=== PATIENT | male | born 1965 | race Caucasian/White ===

== ENCOUNTER 2016-10-14 | Emergency (ER) | END 2016-10-15 01:07 | disposition left against medical advice (07) ==

== ENCOUNTER 2016-10-17 | Emergency (ER) | payer OTHER, MEDICAID | END 2016-10-17 16:47 | disposition home or self-care (01) | CPT/HCPCS: 1040M; 99282 ==

== ENCOUNTER 2016-10-20 17:46 | Inpatient (IN) | payer MEDICAID ==
[2016-10-20] MEDS ORDERED: HYDROmorphone 1 MG/ML SYRINGE IVP STA (18:15)
[2016-10-20] MEDS ORDERED: SODIUM CHLORIDE 0.9% 1,000 ML IV ONE (18:15)
[2016-10-20] MEDS ORDERED: HYDROmorphone 1 MG/ML SYRINGE ONE (18:32)
[2016-10-20] MEDS ORDERED: PIPERACILLIN/TAZOBACTAM 4.5 GM in SODIUM CHLORIDE 0.9% MINIBAG 100 ML IV STA (20:04)
[2016-10-20] MEDS ORDERED: SODIUM CHLORIDE 0.9% MINIBAG 100 ML IV ONE (20:05)
[2016-10-20] MEDS ORDERED: HYDROcod/ACETAM 5/325 MG TABLET PO PRN (21:28)
[2016-10-20] MEDS ORDERED: SODIUM CHLORIDE 0.9% 1,000 ML IV SCH (21:28)
[2016-10-20] MEDS ORDERED: ONDANSETRON 4 MG/2 ML VIAL IVP PRN (21:28)
[2016-10-20] MEDS ORDERED: ACETAMINOPHEN 325 MG TABLET PO PRN (21:28)
[2016-10-20] MEDS: HYDROmorphone 1 MG/ML SYRINGE IVP PRN (22:03)
[2016-10-20] MEDS: SODIUM CHLORIDE FLUSH 0.9% 10 ML SYRINGE IVP SCH (22:03)
[2016-10-20] MEDS: GABAPENTIN 300 MG CAPSULE PO SCH (22:12)
[2016-10-20] MEDS: NICOTINE 21 MG PATCH TOP SCH (22:13)
[2016-10-20] MEDS: INSULIN GLARGINE 300 UNIT/3 ML PEN SUBQ SCH (22:18)
[2016-10-20] MEDS: INSULIN ASPART 300 UNIT/3 ML PEN SUBQ SCH (22:19)
[2016-10-20] MEDS: PIPERACILLIN/TAZOBACTAM 4.5 GM in SODIUM CHLORIDE 0.9% MINIBAG 100 ML IV SCH (23:46)
[2016-10-20] MEDS: TEMAZEPAM 15 MG CAPSULE PO PRN (23:46)
[2016-10-21] MEDS: VANCOMYCIN INJ 1.5 GM in SODIUM CHLORIDE 0.9% 500 ML IV SCH ×3 (01:17→16:27)
[2016-10-21] MEDS: SODIUM CHLORIDE FLUSH 0.9% 10 ML SYRINGE IVP SCH ×3 (01:21→22:40)
[2016-10-21] MEDS ORDERED: VANCOMYCIN PER PHARMACY 1 GM in SODIUM CHLORIDE 0.9% 250 ML IV SCH ×4 (08:00)
[2016-10-21] MEDS: INSULIN ASPART 300 UNIT/3 ML PEN SUBQ SCH ×8 (08:21→21:22)
[2016-10-21] MEDS: PIPERACILLIN/TAZOBACTAM 4.5 GM in SODIUM CHLORIDE 0.9% MINIBAG 100 ML IV SCH ×2 (08:21→18:50)
[2016-10-21] MEDS: SACCHAROMYCES BOULARDII 250 MG CAPSULE PO SCH ×2 (08:22→16:58)
[2016-10-21] MEDS: ENOXAPARIN 40 MG/0.4 ML SYRINGE SUBQ SCH (08:22)
[2016-10-21] MEDS: GABAPENTIN 300 MG CAPSULE PO SCH ×2 (08:23→21:27)
[2016-10-21] MEDS: NICOTINE 21 MG PATCH TOP SCH ×2 (08:23→16:57)
[2016-10-21] MEDS: LISINOPRIL 5 MG TABLET PO SCH (08:23)
[2016-10-21] MEDS: HYDROmorphone 1 MG/ML SYRINGE IVP PRN ×3 (08:31→16:27)
[2016-10-21] MEDS: POLYETHYLENE GLYCOL 3350 17 GM PACKET PO SCH (08:53)
[2016-10-21] MEDS: SILVER SULFADIAZINE CREAM 25 GM TUBE TOP SCH ×2 (09:29→21:39)
[2016-10-21] MEDS ORDERED: HYDROcod/ACETAM 5/325 MG TABLET PO PRN (10:25)
[2016-10-21] MEDS: NEOMYCIN/BACITRA/POLYMYX OINT PACKET TOP SCH ×2 (10:30→21:32)
[2016-10-21] MEDS ORDERED: GADOBUTROL 10 MMOL/10 ML VIAL IVP ONE (15:56)
[2016-10-21] MEDS: INSULIN GLARGINE 300 UNIT/3 ML PEN SUBQ SCH (21:24)
[2016-10-21] MEDS: oxyCOD/ACETAMIN 5 MG/325 MG TABLET PO PRN (21:37)
[2016-10-21] MEDS: TEMAZEPAM 15 MG CAPSULE PO PRN (22:37)
[2016-10-22] MEDS: PIPERACILLIN/TAZOBACTAM 4.5 GM in SODIUM CHLORIDE 0.9% MINIBAG 100 ML IV SCH ×5 (00:24→23:56)
[2016-10-22] MEDS: VANCOMYCIN INJ 1.5 GM in SODIUM CHLORIDE 0.9% 500 ML IV SCH ×2 (04:00→16:22)
[2016-10-22] MEDS: SODIUM CHLORIDE FLUSH 0.9% 10 ML SYRINGE IVP SCH ×3 (06:25→22:52)
[2016-10-22] MEDS: oxyCOD/ACETAMIN 5 MG/325 MG TABLET PO PRN ×4 (06:36→21:51)
[2016-10-22] MEDS: SACCHAROMYCES BOULARDII 250 MG CAPSULE PO SCH ×2 (07:57→17:07)
[2016-10-22] MEDS: ENOXAPARIN 40 MG/0.4 ML SYRINGE SUBQ SCH (07:58)
[2016-10-22] MEDS: POLYETHYLENE GLYCOL 3350 17 GM PACKET PO SCH (07:58)
[2016-10-22] MEDS: SILVER SULFADIAZINE CREAM 25 GM TUBE TOP SCH ×2 (07:59→22:52)
[2016-10-22] MEDS: INSULIN ASPART 300 UNIT/3 ML PEN SUBQ SCH ×7 (08:00→21:55)
[2016-10-22] MEDS: LISINOPRIL 5 MG TABLET PO SCH (08:06)
[2016-10-22] MEDS: GABAPENTIN 300 MG CAPSULE PO SCH ×2 (08:09→21:51)
[2016-10-22] MEDS: NEOMYCIN/BACITRA/POLYMYX OINT PACKET TOP SCH ×2 (08:10→21:57)
[2016-10-22] MEDS: HYDROmorphone 1 MG/ML SYRINGE IVP PRN (16:14)
[2016-10-22] MEDS: INSULIN GLARGINE 300 UNIT/3 ML PEN SUBQ SCH (21:56)
[2016-10-22] MEDS: NICOTINE 21 MG PATCH TOP SCH (22:59)
[2016-10-23] MEDS: HYDROmorphone 1 MG/ML SYRINGE IVP PRN ×5 (00:04→15:56)
[2016-10-23] MEDS: TEMAZEPAM 15 MG CAPSULE PO PRN (00:14)
[2016-10-23] MEDS: SODIUM CHLORIDE FLUSH 0.9% 10 ML SYRINGE IVP PRN ×2 (01:04→03:21)
[2016-10-23] MEDS: VANCOMYCIN INJ 1.5 GM in SODIUM CHLORIDE 0.9% 500 ML IV SCH ×3 (01:04→17:19)
[2016-10-23] MEDS ORDERED: DEXTROSE 5% 1,000 ML IV PRN ×4 (04:43→21:06)
[2016-10-23] MEDS ORDERED: DEXTROSE 50% ABBOJECT 25 GM/50 ML SYRINGE IVP PRN ×4 (04:43→21:06)
[2016-10-23] MEDS ORDERED: GLUCAGON 1 MG/ML VIAL SUBQ PRN ×4 (04:43→21:06)
[2016-10-23] MEDS ORDERED: DEXTROSE GEL 37.5 GM TUBE PO PRN ×4 (04:43→21:06)
[2016-10-23] MEDS: INSULIN REGULAR HUMAN 100 UNIT/1 ML 10 ML MDV SUBQ SCH ×2 (06:50→11:21)
[2016-10-23] MEDS: PIPERACILLIN/TAZOBACTAM 4.5 GM in SODIUM CHLORIDE 0.9% MINIBAG 100 ML IV SCH ×3 (06:51→20:38)
[2016-10-23] MEDS: SODIUM CHLORIDE FLUSH 0.9% 10 ML SYRINGE IVP SCH ×3 (06:51→15:57)
[2016-10-23] MEDS: INSULIN ASPART 300 UNIT/3 ML PEN SUBQ SCH ×4 (08:43→21:58)
[2016-10-23] MEDS: LISINOPRIL 5 MG TABLET PO SCH (09:10)
[2016-10-23] MEDS: SACCHAROMYCES BOULARDII 250 MG CAPSULE PO SCH ×2 (09:10→17:19)
[2016-10-23] MEDS: GABAPENTIN 300 MG CAPSULE PO SCH ×2 (09:11→21:59)
[2016-10-23] MEDS: POLYETHYLENE GLYCOL 3350 17 GM PACKET PO SCH (09:19)
[2016-10-23] MEDS: ENOXAPARIN 40 MG/0.4 ML SYRINGE SUBQ SCH (09:20)
[2016-10-23] MEDS: NEOMYCIN/BACITRA/POLYMYX OINT PACKET TOP SCH (09:20)
[2016-10-23] MEDS: SILVER SULFADIAZINE CREAM 25 GM TUBE TOP SCH ×2 (09:20→22:00)
[2016-10-23] MEDS: NICOTINE 21 MG PATCH TOP SCH (10:26)
[2016-10-23] MEDS ORDERED: BUPIVACAINE 0.5% PF 30 ML VIAL INFIL ONE ×2 (12:52)
[2016-10-23] MEDS ORDERED: LACTATED RINGERS 1,000 ML IV ONE (12:56)
[2016-10-23] MEDS ORDERED: ONDANSETRON 4 MG/2 ML VIAL IVP ONE (13:00)
[2016-10-23] MEDS ORDERED: ePHEDrine 50 MG/ML AMP IVP ONE (13:00)
[2016-10-23] MEDS ORDERED: MIDAZOLAM 2 MG/2 ML VIAL IVP ONE (13:00)
[2016-10-23] MEDS ORDERED: fentaNYL 100 MCG/2 ML VIAL IVP ONE (13:00)
[2016-10-23] MEDS ORDERED: ONDANSETRON 4 MG/2 ML VIAL IVP PRN (13:48)
[2016-10-23] MEDS ORDERED: oxyCOD/ACETAMIN 5 MG/325 MG TABLET PO PRN (13:48)
[2016-10-23] MEDS ORDERED: ACETAMINOPHEN 325 MG TABLET PO PRN (13:48)
[2016-10-23] MEDS ORDERED: INSULIN REGULAR HUMAN 100 UNIT/1 ML 10 ML MDV SUBQ SCH (18:00)
[2016-10-23] MEDS: INSULIN GLARGINE 300 UNIT/3 ML PEN SUBQ SCH (21:59)
[2016-10-24] MEDS: VANCOMYCIN INJ 1.5 GM in SODIUM CHLORIDE 0.9% 500 ML IV SCH ×3 (00:10→17:21)
[2016-10-24] MEDS: HYDROmorphone 1 MG/ML SYRINGE IVP PRN ×4 (00:10→10:31)
[2016-10-24] MEDS: TEMAZEPAM 15 MG CAPSULE PO PRN ×2 (00:11→21:38)
[2016-10-24] MEDS: SODIUM CHLORIDE FLUSH 0.9% 10 ML SYRINGE IVP PRN (00:11)
[2016-10-24] MEDS: PIPERACILLIN/TAZOBACTAM 4.5 GM in SODIUM CHLORIDE 0.9% MINIBAG 100 ML IV SCH ×4 (03:17→21:38)
[2016-10-24] MEDS: SODIUM CHLORIDE FLUSH 0.9% 10 ML SYRINGE IVP SCH ×3 (06:41→21:42)
[2016-10-24] MEDS: INSULIN ASPART 300 UNIT/3 ML PEN SUBQ SCH ×7 (07:50→21:43)
[2016-10-24] MEDS ORDERED: INSULIN ASPART 300 UNIT/3 ML PEN SUBQ SCH (08:00)
[2016-10-24] MEDS: NICOTINE 21 MG PATCH TOP SCH (08:42)
[2016-10-24] MEDS: GABAPENTIN 300 MG CAPSULE PO SCH ×2 (08:42→21:38)
[2016-10-24] MEDS: SACCHAROMYCES BOULARDII 250 MG CAPSULE PO SCH ×2 (08:43→17:08)
[2016-10-24] MEDS: LISINOPRIL 5 MG TABLET PO SCH (08:43)
[2016-10-24] MEDS: ENOXAPARIN 40 MG/0.4 ML SYRINGE SUBQ SCH (10:34)
[2016-10-24] MEDS: SENNA 8.6 MG TABLET PO SCH (10:35)
[2016-10-24] MEDS: DOCUSATE SODIUM 250 MG CAPSULE PO SCH (10:35)
[2016-10-24] MEDS: SILVER SULFADIAZINE CREAM 25 GM TUBE TOP SCH ×2 (10:37→21:39)
[2016-10-24] MEDS: HYDROmorphone 2 MG TABLET PO PRN ×3 (13:36→21:38)
[2016-10-24] MEDS: INSULIN GLARGINE 300 UNIT/3 ML PEN SUBQ SCH (21:44)
[2016-10-25] MEDS: VANCOMYCIN INJ 1.5 GM in SODIUM CHLORIDE 0.9% 500 ML IV SCH ×3 (00:04→16:58)
[2016-10-25] MEDS: SODIUM CHLORIDE FLUSH 0.9% 10 ML SYRINGE IVP PRN ×2 (00:04→02:18)
[2016-10-25] MEDS: PIPERACILLIN/TAZOBACTAM 4.5 GM in SODIUM CHLORIDE 0.9% MINIBAG 100 ML IV SCH ×4 (02:15→21:34)
[2016-10-25] MEDS: HYDROmorphone 2 MG TABLET PO PRN ×4 (02:16→21:42)
[2016-10-25] MEDS: SACCHAROMYCES BOULARDII 250 MG CAPSULE PO SCH ×2 (08:55→16:58)
[2016-10-25] MEDS: GABAPENTIN 300 MG CAPSULE PO SCH ×2 (08:55→20:59)
[2016-10-25] MEDS: INSULIN ASPART 300 UNIT/3 ML PEN SUBQ SCH ×7 (08:55→21:00)
[2016-10-25] MEDS: DOCUSATE SODIUM 250 MG CAPSULE PO SCH (08:56)
[2016-10-25] MEDS: ENOXAPARIN 40 MG/0.4 ML SYRINGE SUBQ SCH (08:56)
[2016-10-25] MEDS: SENNA 8.6 MG TABLET PO SCH (08:56)
[2016-10-25] MEDS: LISINOPRIL 5 MG TABLET PO SCH (08:58)
[2016-10-25] MEDS: NICOTINE 21 MG PATCH TOP SCH (09:01)
[2016-10-25] MEDS: SILVER SULFADIAZINE CREAM 25 GM TUBE TOP SCH ×2 (09:29→21:39)
[2016-10-25] MEDS: SODIUM CHLORIDE FLUSH 0.9% 10 ML SYRINGE IVP SCH ×3 (11:43→21:35)
[2016-10-25] MEDS: INSULIN GLARGINE 300 UNIT/3 ML PEN SUBQ SCH (21:01)
[2016-10-26] MEDS: TEMAZEPAM 15 MG CAPSULE PO PRN ×2 (00:22→22:12)
[2016-10-26] MEDS: VANCOMYCIN INJ 1.5 GM in SODIUM CHLORIDE 0.9% 500 ML IV SCH ×3 (00:22→17:04)
[2016-10-26] MEDS: PIPERACILLIN/TAZOBACTAM 4.5 GM in SODIUM CHLORIDE 0.9% MINIBAG 100 ML IV SCH ×4 (02:14→22:13)
[2016-10-26] MEDS: SODIUM CHLORIDE FLUSH 0.9% 10 ML SYRINGE IVP SCH ×3 (02:14→22:12)
[2016-10-26] MEDS: HYDROmorphone 2 MG TABLET PO PRN ×2 (06:03→14:13)
[2016-10-26] MEDS: ENOXAPARIN 40 MG/0.4 ML SYRINGE SUBQ SCH (08:05)
[2016-10-26] MEDS: SACCHAROMYCES BOULARDII 250 MG CAPSULE PO SCH ×2 (08:05→17:04)
[2016-10-26] MEDS: DOCUSATE SODIUM 250 MG CAPSULE PO SCH ×2 (08:05→08:11)
[2016-10-26] MEDS: NICOTINE 21 MG PATCH TOP SCH ×3 (08:06→11:00)
[2016-10-26] MEDS: GABAPENTIN 300 MG CAPSULE PO SCH ×2 (08:06→22:01)
[2016-10-26] MEDS: LISINOPRIL 5 MG TABLET PO SCH (08:06)
[2016-10-26] MEDS: SENNA 8.6 MG TABLET PO SCH ×2 (08:07→08:12)
[2016-10-26] MEDS: POLYETHYLENE GLYCOL 3350 17 GM PACKET PO SCH (08:10)
[2016-10-26] MEDS: INSULIN ASPART 300 UNIT/3 ML PEN SUBQ SCH ×7 (08:20→22:07)
[2016-10-26] MEDS: SILVER SULFADIAZINE CREAM 25 GM TUBE TOP SCH ×2 (10:38→22:12)
[2016-10-26] MEDS: INSULIN GLARGINE 300 UNIT/3 ML PEN SUBQ SCH (22:06)
[2016-10-27] MEDS: VANCOMYCIN INJ 1.5 GM in SODIUM CHLORIDE 0.9% 500 ML IV SCH ×3 (01:09→17:06)
[2016-10-27] MEDS: PIPERACILLIN/TAZOBACTAM 4.5 GM in SODIUM CHLORIDE 0.9% MINIBAG 100 ML IV SCH ×4 (03:06→21:43)
[2016-10-27] MEDS: SODIUM CHLORIDE FLUSH 0.9% 10 ML SYRINGE IVP SCH ×3 (06:02→21:53)
[2016-10-27] MEDS: SACCHAROMYCES BOULARDII 250 MG CAPSULE PO SCH ×2 (08:07→17:06)
[2016-10-27] MEDS: GABAPENTIN 300 MG CAPSULE PO SCH ×2 (08:07→21:43)
[2016-10-27] MEDS: NICOTINE 21 MG PATCH TOP SCH (08:08)
[2016-10-27] MEDS: ENOXAPARIN 40 MG/0.4 ML SYRINGE SUBQ SCH (08:08)
[2016-10-27] MEDS: LISINOPRIL 5 MG TABLET PO SCH (08:08)
[2016-10-27] MEDS: INSULIN ASPART 300 UNIT/3 ML PEN SUBQ SCH ×7 (08:09→21:41)
[2016-10-27] MEDS: SILVER SULFADIAZINE CREAM 25 GM TUBE TOP SCH ×2 (08:22→21:50)
[2016-10-27] MEDS: SENNA 8.6 MG TABLET PO SCH (08:23)
[2016-10-27] MEDS: DOCUSATE SODIUM 250 MG CAPSULE PO SCH (08:23)
[2016-10-27] MEDS: POLYETHYLENE GLYCOL 3350 17 GM PACKET PO SCH (08:23)
[2016-10-27] MEDS: HYDROmorphone 2 MG TABLET PO PRN ×2 (13:22→21:42)
[2016-10-27] MEDS: SODIUM CHLORIDE FLUSH 0.9% 10 ML SYRINGE IVP PRN (17:11)
[2016-10-27] MEDS: INSULIN GLARGINE 300 UNIT/3 ML PEN SUBQ SCH (21:40)
[2016-10-27] MEDS: TEMAZEPAM 15 MG CAPSULE PO PRN (21:42)
[2016-10-28] MEDS: SODIUM CHLORIDE FLUSH 0.9% 10 ML SYRINGE IVP PRN (00:46)
[2016-10-28] MEDS: VANCOMYCIN INJ 1.5 GM in SODIUM CHLORIDE 0.9% 500 ML IV SCH ×2 (00:46→09:34)
[2016-10-28] MEDS: PIPERACILLIN/TAZOBACTAM 4.5 GM in SODIUM CHLORIDE 0.9% MINIBAG 100 ML IV SCH ×2 (03:04→08:16)
[2016-10-28] MEDS: HYDROmorphone 2 MG TABLET PO PRN (06:32)
[2016-10-28] MEDS: SODIUM CHLORIDE FLUSH 0.9% 10 ML SYRINGE IVP SCH (06:33)
[2016-10-28] MEDS: INSULIN ASPART 300 UNIT/3 ML PEN SUBQ SCH ×4 (08:11→12:01)
[2016-10-28] MEDS: DOCUSATE SODIUM 250 MG CAPSULE PO SCH (08:12)
[2016-10-28] MEDS: SACCHAROMYCES BOULARDII 250 MG CAPSULE PO SCH (08:12)
[2016-10-28] MEDS: ENOXAPARIN 40 MG/0.4 ML SYRINGE SUBQ SCH (08:13)
[2016-10-28] MEDS: NICOTINE 21 MG PATCH TOP SCH (08:15)
[2016-10-28] MEDS: LISINOPRIL 5 MG TABLET PO SCH (08:18)
[2016-10-28] MEDS: GABAPENTIN 300 MG CAPSULE PO SCH (08:27)
[2016-10-28] MEDS: SENNA 8.6 MG TABLET PO SCH (08:28)
[2016-10-28] MEDS: POLYETHYLENE GLYCOL 3350 17 GM PACKET PO SCH (08:28)
[2016-10-28] MEDS: SILVER SULFADIAZINE CREAM 25 GM TUBE TOP SCH (09:39)
[2016-10-28] MEDS ORDERED: CLINDAMYCIN 150 MG CAPSULE PO SCH ×2 (12:00→14:00)
== END 2016-10-28 13:50 | disposition home or self-care (01) | DRG 854 ==
PROC: 0Y6P0Z1 Detachment at Right 1st Toe, High, Open Approach (ICD-10-PCS; principal; 2016-10-23 12:30)
DX: A41.9 Sepsis, unspecified organism (principal); L03.115 Cellulitis of right lower limb; M86.171 Other acute osteomyelitis, right ankle and foot; T23.271D Burn of second degree of right wrist, subsequent encounter; X10.2XXD Contact with fats and cooking oils, subsequent encounter; E11.621 Type 2 diabetes mellitus with foot ulcer; L97.514 Non-pressure chronic ulcer of other part of right foot with necrosis of bone; B35.1 Tinea unguium; E11.649 Type 2 diabetes mellitus with hypoglycemia without coma; E11.65 Type 2 diabetes mellitus with hyperglycemia; E11.42 Type 2 diabetes mellitus with diabetic polyneuropathy; E11.69 Type 2 diabetes mellitus with other specified complication; I73.9 Peripheral vascular disease, unspecified; I10 Essential (primary) hypertension; F17.210 Nicotine dependence, cigarettes, uncomplicated; Z89.422 Acquired absence of other left toe(s); Z79.4 Long term (current) use of insulin

== ENCOUNTER 2016-11-27 11:10 | Inpatient (IN) | payer MEDICAID ==
[2016-11-27] MEDS ORDERED: SODIUM CHLORIDE 0.9% 1,000 ML IV ONE (12:21)
[2016-11-27] MEDS ORDERED: PIPERACILLIN/TAZOBACTAM 3.375 GM in SODIUM CHLORIDE 0.9% MINIBAG 100 ML IV STA (12:21)
[2016-11-27] MEDS ORDERED: VANCOMYCIN INJ 1 GM in SODIUM CHLORIDE 0.9% 250 ML IV STA (12:24)
[2016-11-27] MEDS ORDERED: WATER FOR INJECTION,STERILE 10 ML ONE ×2 (13:23)
[2016-11-27] MEDS ORDERED: VANCOMYCIN 1 GM VIAL ONE (13:23)
[2016-11-27] MEDS ORDERED: ONDANSETRON ODT 4 MG TABLET TL PRN (13:31)
[2016-11-27] MEDS ORDERED: VANCOMYCIN PER PHARMACY 1 GM in SODIUM CHLORIDE 0.9% 250 ML IV SCH (14:00)
[2016-11-27] MEDS: SODIUM CHLORIDE FLUSH 0.9% 10 ML SYRINGE IVP SCH ×2 (15:20→21:39)
[2016-11-27] MEDS: PANTOPRAZOLE 40 MG TABLET PO SCH (15:27)
[2016-11-27] MEDS ORDERED: VANCOMYCIN INJ 500 MG in SODIUM CHLORIDE 0.9% MINIBAG 100 ML IV ONE (15:30)
[2016-11-27] MEDS: HYDROcod/ACETAM 10 MG/325 MG TABLET PO PRN ×2 (15:31→19:31)
[2016-11-27] MEDS: INSULIN ASPART 300 UNIT/3 ML PEN SUBQ SCH ×2 (17:26→21:39)
[2016-11-27] MEDS: PIPERACILLIN/TAZOBACTAM 3.375 GM in SODIUM CHLORIDE 0.9% MINIBAG 100 ML IV SCH (18:45)
[2016-11-27] MEDS: IBUPROFEN 600 MG TABLET PO PRN (19:31)
[2016-11-27] MEDS: VANCOMYCIN INJ 1 GM, VANCOMYCIN INJ 250 MG in SODIUM CHLORIDE 0.9% 250 ML IV SCH (21:38)
[2016-11-27] MEDS ORDERED: ZOLPIDEM 5 MG TABLET PO PRN (21:42)
[2016-11-27] MEDS ORDERED: DEXTROSE 5% 1,000 ML IV PRN (21:43)
[2016-11-27] MEDS ORDERED: DEXTROSE 50% ABBOJECT 25 GM/50 ML SYRINGE IVP PRN (21:43)
[2016-11-27] MEDS ORDERED: GLUCAGON 1 MG/ML VIAL SUBQ PRN (21:43)
[2016-11-27] MEDS ORDERED: DEXTROSE GEL 37.5 GM TUBE PO PRN (21:43)
[2016-11-27] MEDS: INSULIN GLARGINE 300 UNIT/3 ML PEN SUBQ SCH (22:06)
[2016-11-28] MEDS: PIPERACILLIN/TAZOBACTAM 3.375 GM in SODIUM CHLORIDE 0.9% MINIBAG 100 ML IV SCH ×4 (00:44→18:38)
[2016-11-28] MEDS: SODIUM CHLORIDE FLUSH 0.9% 10 ML SYRINGE IVP SCH ×4 (05:36→21:32)
[2016-11-28] MEDS: VANCOMYCIN INJ 1 GM, VANCOMYCIN INJ 250 MG in SODIUM CHLORIDE 0.9% 250 ML IV SCH ×3 (05:36→21:54)
[2016-11-28] MEDS: IBUPROFEN 600 MG TABLET PO PRN (05:43)
[2016-11-28] MEDS: HYDROcod/ACETAM 10 MG/325 MG TABLET PO PRN (05:43)
[2016-11-28] MEDS: PANTOPRAZOLE 40 MG TABLET PO SCH (06:25)
[2016-11-28] MEDS: SODIUM CHLORIDE FLUSH 0.9% 10 ML SYRINGE IVP PRN ×2 (07:30→18:38)
[2016-11-28] MEDS: ENOXAPARIN 40 MG/0.4 ML SYRINGE SUBQ SCH (08:04)
[2016-11-28] MEDS: POLYETHYLENE GLYCOL 3350 17 GM PACKET PO SCH (08:06)
[2016-11-28] MEDS: NICOTINE 14 MG PATCH TOP SCH (08:06)
[2016-11-28] MEDS: INSULIN ASPART 300 UNIT/3 ML PEN SUBQ SCH ×4 (09:29→21:00)
[2016-11-28] MEDS ORDERED: VANCOMYCIN INJ 1 GM in SODIUM CHLORIDE 0.9% 250 ML IV SCH (14:00)
[2016-11-28] MEDS: INSULIN GLARGINE 300 UNIT/3 ML PEN SUBQ SCH (21:01)
[2016-11-29] MEDS: SODIUM CHLORIDE FLUSH 0.9% 10 ML SYRINGE IVP PRN (00:48)
[2016-11-29] MEDS: PIPERACILLIN/TAZOBACTAM 3.375 GM in SODIUM CHLORIDE 0.9% MINIBAG 100 ML IV SCH ×2 (00:48→08:21)
[2016-11-29] MEDS: VANCOMYCIN INJ 1 GM, VANCOMYCIN INJ 250 MG in SODIUM CHLORIDE 0.9% 250 ML IV SCH (05:18)
[2016-11-29] MEDS: SODIUM CHLORIDE FLUSH 0.9% 10 ML SYRINGE IVP SCH (05:18)
[2016-11-29] MEDS: IBUPROFEN 600 MG TABLET PO PRN (05:59)
[2016-11-29] MEDS: HYDROcod/ACETAM 10 MG/325 MG TABLET PO PRN (05:59)
[2016-11-29] MEDS: PANTOPRAZOLE 40 MG TABLET PO SCH (05:59)
[2016-11-29] MEDS: ENOXAPARIN 40 MG/0.4 ML SYRINGE SUBQ SCH (08:21)
[2016-11-29] MEDS: NICOTINE 14 MG PATCH TOP SCH (08:22)
[2016-11-29] MEDS: POLYETHYLENE GLYCOL 3350 17 GM PACKET PO SCH (08:22)
[2016-11-29] MEDS: INSULIN ASPART 300 UNIT/3 ML PEN SUBQ SCH ×2 (08:36→12:04)
[2016-11-29] MEDS ORDERED: GABAPENTIN 300 MG CAPSULE PO SCH ×2 (09:00→21:00)
[2016-11-29] MEDS ORDERED: LISINOPRIL 5 MG TABLET PO SCH (09:00)
== END 2016-11-29 12:20 | disposition home or self-care (01) | DRG 556 ==
DX: M79.674 Pain in right toe(s) (principal); M79.89 Other specified soft tissue disorders; B35.1 Tinea unguium; E11.65 Type 2 diabetes mellitus with hyperglycemia; E11.42 Type 2 diabetes mellitus with diabetic polyneuropathy; F17.200 Nicotine dependence, unspecified, uncomplicated; Z79.4 Long term (current) use of insulin; Z89.411 Acquired absence of right great toe; Z89.422 Acquired absence of other left toe(s); Y93.G3 Activity, cooking and baking; Z87.39 Personal history of other diseases of the musculoskeletal system and connective tissue; Z71.6 Tobacco abuse counseling

== ENCOUNTER 2017-04-30 13:31 | Inpatient (IN) | payer MEDICAID ==
[2017-04-30] MEDS ORDERED: VANCOMYCIN INJ 1.5 GM in SODIUM CHLORIDE 0.9% 500 ML IV STA (16:02)
[2017-04-30] MEDS ORDERED: PIPERACILLIN/TAZOBACTAM 3.375 GM in SODIUM CHLORIDE 0.9% MINIBAG 100 ML IV STA (16:02)
--- NOTE | 2017-04-30 16:04 | ED Physician Documentation ---
PD HPI LOWER EXT INJURY - Stated complaint Stated Complaint: L FOOT BLISTER,BLEEDING,SWOLLEN,DM - Chief complaint Chief Complaint: Ext Problem - History obtained from History obtained from: Patient - History of Present Illness PD HPI LOW EXT INJURY LOCATION: Other (51-year-old gentleman with diabetes, gets recurrent foot infections, has had the right great and left second toe amputated. 4 days of pain and swelling and drainage and bleeding from the left little toe without fevers or other systemic symptoms. Pain is mild.) - Additional information Additional information: Took 4 days of leftover clindamycin at home without improvement Review of Systems Ten Systems: 10 systems reviewed and negative Constitutional: denies: Fever, Chills Nose: denies: Rhinorrhea / runny nose, Congestion Cardiac: denies: Chest pain / pressure, Palpitations Respiratory: denies: Dyspnea, Cough PD PAST MEDICAL HISTORY - Past Medical History Cardiovascular: None Respiratory: None Neuro: None Endocrine/Autoimmune: Type 2 diabetes GI: None : None HEENT: None Psych: None Musculoskeletal: None Derm: None - Past Surgical History Past Surgical History: Yes General: Appendectomy Ortho: Other - Present Medications Home Medications: Ambulatory Orders Medication Instructions Recorded Confirmed Insulin Glargine,Hum.rec.anlog 30 units SQ QPM 03/07/15 11/27/16 [Lantus Solostar] Gabapentin 600 mg PO DAILY 03/11/16 11/27/16 Gabapentin 300 mg PO QPM 10/05/16 11/27/16 Lisinopril 10 mg PO DAILY 10/05/16 11/27/16 Sildenafil Citrate [Sildenafil] 5 - 20 mg PO QPM PRN 10/21/16 11/27/16 Ibuprofen [Motrin] 600 mg PO Q6HR PRN #0 tablet 11/28/16 Insulin Aspart [NovoLOG] 0 unit SUBQ 0800,1200,1700,2100 11/28/16 #30 pen Insulin Glargine [Lantus Solostar] 30 unit SUBQ QPM pen 11/28/16 Clindamycin [Cleocin] 300 mg PO Q6H 10 Days 11/29/16 - Allergies Allergies/Adverse Reactions: Allergies Allergy/AdvReac Type Severity Reaction Status Date / Time No Known Drug Allergies Allergy Verified 10/14/16 22:09 - Social History Does the pt smoke?: Yes Smoking Status: Current every day smoker Does the pt drink ETOH?: Yes Does the pt have substance abuse?: No - Family History Family history: reports: Non contributory - Immunizations Immunizations are current?: Yes - POLST Patient has POLST: No PD ED PE NORMAL - Vitals Vital signs reviewed: Yes - General General: Alert and oriented X 3, No acute distress - HEENT HEENT: PERRL, EOMI - Neck Neck: Supple, no meningeal sign, No bony TTP - Cardiac Cardiac: RRR, No murmur - Respiratory Respiratory: No respiratory distress, Clear bilaterally - Abdomen Abdomen: Soft, Non tender - Derm Derm: Normal color, Warm and dry - Extremities Extremities: Other (The medial surface of the left small toe is all macerated with skin loss and there is a nickel sized ulcer with purulent material which was sent for culture over the lateral part of that toe and he is tender there.) - Neuro Neuro: Alert and oriented X 3, Normal speech - Psych Psych: Normal mood, Normal affect Results - Vitals Vitals: Vital Signs - 24 hr 04/30/17 13:35 Temperature 36.8 C Heart Rate 101 H Respiratory 15 Rate Blood Pressure 183/98 H O2 Saturation 97 Oxygen O2 Source Room air - Labs Labs: Laboratory Tests 04/30/17 04/30/17 04/30/17 16:33 16:33 16:33 WBC 13.3 H RBC 4.72 Hgb 15.7 Hct 44.8 MCV 94.8 H MCH 33.2 H MCHC 35.0 RDW 12.8 Plt Count 212 MPV 9.3 Neut # 10.1 H Lymph # 1.2 L Carter # 1.6 H Eos # 0.4 Baso # 0.0 Absolute Nucleated RBC 0.01 Nucleated RBCs 0.1 ESR 28 H Sodium 132 L Potassium 4.2 Chloride 99 L Carbon Dioxide 23 Anion Gap 10.0 BUN 20 Creatinine 0.7 Estimated GFR (MDRD) 118 Glucose 253 H Calcium 8.8 C-Reactive Protein 14.3 H PD MEDICAL DECISION MAKING - ED course ED course: 51-year-old gentleman with pretty ugly-looking diabetic foot infection, He had already taken several days worth of clindamycin at home without improvement in fact he is getting worse. No systemic symptoms or obvious evidence of osteomyelitis at this juncture but given that he has failed outpatient treatment would benefit from inpatient treatment with IV antibiotics and potential orthopedic consultation. - Consults Consults: Consulted (name) (James Arriaga for admit 1719, tea Morton, for CS, 172) Departure - Departure Disposition: 66 [facility] DC/Xfer Clinical Impression: Cellulitis, Cellulitis in diabetic foot Condition: Stable
[2017-04-30] MEDS ORDERED: VANCOMYCIN 500 MG VIAL ONE (16:29)
[2017-04-30] MEDS ORDERED: VANCOMYCIN 1 GM VIAL ONE (16:29)
--- NOTE | 2017-04-30 16:34 | XRAY Preliminary Report ---
Exam: XR Foot 3 View LT IMPRESSION: 1. No evidence of osteomyelitis. 2. 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 [facility] SITE ID: [id number]
[2017-04-30] MEDS ORDERED: ACETAMINOPHEN 325 MG TABLET PO STA (16:42)
--- NOTE | 2017-04-30 16:50 | XRAY Report ---
EXAM: LEFT FOOT RADIOGRAPHY EXAM DATE: 04/30/2017 04:19 p.m. CLINICAL HISTORY: Diabetic. Infection of lateral foot for 2 days. COMPARISON: Left second toe 03/11/2016. Left foot 02/19/2016. TECHNIQUE: 3 views. FINDINGS: Bones: Remote fracture of the first metatarsal. No acute trabecular cortical disruption. No evidence of osteomyelitis. Interval amputation of the second toe at the second MTP joint. Interval fragmentation and osteolysis with moderate volume loss of the third and fourth metatarsal he ads due to avascular necrosis. Joints: Normal. No subluxations. Soft Tissues: New marked edema lateral aspect of the forefoot, to a greatest degree involving the lef t fifth toe. No emphysema. Small deep wound along the lateral aspect of the left fifth toe, at the level of the fifth proximal p halangeal head. In the deep portion of this wound is some linear high density, most likely salve othe r applied antiseptic. Subjacent bone is normal. IMPRESSION: 1. No evidence of osteomyelitis. 2. Avascular necrosis of the third and fourth metatarsal heads. [facility] Referring Provider Line: [phone] SITE ID: [id number]
[2017-04-30 16:55] LABS: BASOPHILS % (AUTO) 0.3 %; EOSINOPHILS # (AUTO) 0.4 10^3/uL (0.0-0.7); EOSINOPHILS % (AUTO) 2.7 %; HCT - HEMATOCRIT 44.8 % (42.0-52.0); HGB - HEMOGLOBIN 15.7 g/dL (14.0-18.0); LYMPHOCYTES # (AUTO) 1.2 10^3/uL (1.5-3.5); LYMPHOCYTES % (AUTO) 9.1 %; MEAN CORPUSCULAR HEMOGLOBIN 33.2 pg (27.0-31.0); MEAN CORPUSCULAR VOLUME 94.8 fL (80.0-94.0); MEAN PLATELET VOLUME 9.3 fL (7.4-11.4); MONOCYTES # (AUTO) 1.6 10^3/uL (0.0-1.0); MONOCYTES % (AUTO) 11.9 %; NEUTROPHILS # (AUTO) 10.1 10^3/uL (1.5-6.6); NUCLEATED RED BLOOD CELLS AUTO 0.1 /100WBC; RED BLOOD COUNT 4.72 10^6/uL (4.70-6.10); RED CELL DISTRIBUTION WIDTH 12.8 % (12.0-15.0); UNCORRECTED WHITE BLOOD COUNT 13.3 x10^3/uL; WHITE BLOOD COUNT 13.3 x10^3/uL (4.8-10.8)
[2017-04-30] MEDS ORDERED: ACETAMINOPHEN 325 MG TABLET PO ONE (16:55)
[2017-04-30 17:12] LABS: CALCIUM 8.8 mg/dL (8.5-10.3); CREATININE 0.7 mg/dL (0.6-1.2); POTASSIUM 4.2 mmol/L (3.5-5.0)
[2017-04-30] MEDS ORDERED: GABAPENTIN 100 MG CAPSULE PO STA (17:14)
[2017-04-30] MEDS ORDERED: GABAPENTIN 300 MG CAPSULE ONE (17:32)
[2017-04-30] MEDS ORDERED: ONDANSETRON 4 MG/2 ML VIAL IVP PRN (18:21)
[2017-04-30] MEDS ORDERED: INSULIN ASPART 100 UNIT/1 ML 10 ML MDV SUBQ STA (18:45)
[2017-04-30] MEDS ORDERED: INSULIN ASPART 100 UNIT/1 ML 10 ML MDV SUBQ ONE (18:51)
[2017-04-30] MEDS ORDERED: PIPERACILLIN/TAZOBACTAM 3.375 GM in SODIUM CHLORIDE 0.9% MINIBAG 100 ML IV SCH (19:00)
[2017-04-30] MEDS ORDERED: VANCOMYCIN PER PHARMACY 1 GM in SODIUM CHLORIDE 0.9% 250 ML IV SCH (19:00)
[2017-04-30] MEDS: INSULIN ASPART 300 UNIT/3 ML PEN SUBQ SCH (20:44)
[2017-04-30] MEDS ORDERED: ACETAMINOPHEN 325 MG TABLET PO PRN (20:54)
[2017-04-30] MEDS ORDERED: INSULIN ASPART 300 UNIT/3 ML PEN SUBQ SCH (21:00)
[2017-04-30] MEDS: NICOTINE 21 MG PATCH TOP SCH (21:55)
[2017-04-30] MEDS: SODIUM CHLORIDE FLUSH 0.9% 10 ML SYRINGE IVP SCH (23:04)
[2017-04-30] MEDS: PIPERACILLIN/TAZOBACTAM 3.375 GM in SODIUM CHLORIDE 0.9% MINIBAG 100 ML IV SCH (23:04)
[2017-04-30] MEDS: HYDROcod/ACETAM 5/325 MG TABLET PO PRN (23:16)
[2017-05-01] MEDS: ZOLPIDEM 5 MG TABLET PO PRN (01:37)
[2017-05-01] MEDS ORDERED: VANCOMYCIN INJ 1.5 GM in SODIUM CHLORIDE 0.9% 500 ML IV SCH (04:00)
[2017-05-01] MEDS: PIPERACILLIN/TAZOBACTAM 3.375 GM in SODIUM CHLORIDE 0.9% MINIBAG 100 ML IV SCH ×4 (05:30→22:44)
[2017-05-01 06:22] LABS: BASOPHILS # (AUTO) 0.1 10^3/uL (0.0-0.1); EOSINOPHILS # (AUTO) 0.4 10^3/uL (0.0-0.7); EOSINOPHILS % (AUTO) 4.5 %; HCT - HEMATOCRIT 43.7 % (42.0-52.0); HGB - HEMOGLOBIN 14.9 g/dL (14.0-18.0); LYMPHOCYTES # (AUTO) 1.2 10^3/uL (1.5-3.5); LYMPHOCYTES % (AUTO) 12.7 %; MEAN CORPUSCULAR HEMOGLOBIN 32.9 pg (27.0-31.0); MEAN CORPUSCULAR HGB CONC 34.2 g/dL (32.0-36.0); MEAN CORPUSCULAR VOLUME 96.3 fL (80.0-94.0); MEAN PLATELET VOLUME 8.9 fL (7.4-11.4); MONOCYTES # (AUTO) 1.1 10^3/uL (0.0-1.0); MONOCYTES % (AUTO) 11.4 %; NEUTROPHILS # (AUTO) 6.8 10^3/uL (1.5-6.6); NEUTROPHILS % (AUTO) 70.4 %; NUCLEATED RED BLOOD CELLS AUTO 0.1 /100WBC; RED BLOOD COUNT 4.54 10^6/uL (4.70-6.10); RED CELL DISTRIBUTION WIDTH 12.6 % (12.0-15.0); UNCORRECTED WHITE BLOOD COUNT 9.7 x10^3/uL; WHITE BLOOD COUNT 9.7 x10^3/uL (4.8-10.8)
[2017-05-01] MEDS: HYDROcod/ACETAM 5/325 MG TABLET PO PRN ×4 (06:25→21:41)
[2017-05-01 06:31] LABS: ALBUMIN/GLOBULIN RATIO 0.9 (1.0-2.2); BILIRUBIN,TOTAL 0.9 mg/dL (0.2-1.0); CALCIUM 8.2 mg/dL (8.5-10.3); CREATININE 0.6 mg/dL (0.6-1.2); POTASSIUM 3.9 mmol/L (3.5-5.0); TOTAL PROTEIN 6.3 g/dL (6.7-8.2)
[2017-05-01] MEDS: SODIUM CHLORIDE FLUSH 0.9% 10 ML SYRINGE IVP SCH ×3 (07:47→21:26)
[2017-05-01] MEDS ORDERED: NICOTINE 21 MG PATCH TOP SCH (09:00)
[2017-05-01] MEDS: INSULIN ASPART 300 UNIT/3 ML PEN SUBQ SCH ×3 (09:12→21:25)
[2017-05-01] MEDS: ENOXAPARIN 40 MG/0.4 ML SYRINGE SUBQ SCH (09:14)
[2017-05-01] MEDS: NICOTINE 21 MG PATCH TOP SCH ×2 (09:14→18:02)
[2017-05-01] MEDS: POLYETHYLENE GLYCOL 3350 17 GM PACKET PO SCH (09:14)
[2017-05-01] MEDS: FAMOTIDINE 20 MG TABLET PO SCH (09:14)
[2017-05-01] MEDS: SODIUM CHLORIDE FLUSH 0.9% 10 ML SYRINGE IVP PRN (10:55)
[2017-05-01] MEDS ORDERED: GADOBUTROL 10 MMOL/10 ML SYRINGE IVP ONE (16:15)
[2017-05-01] MEDS ORDERED: INSULIN ASPART 300 UNIT/3 ML PEN SUBQ SCH (17:00)
[2017-05-01] MEDS: VANCOMYCIN INJ 1.5 GM in SODIUM CHLORIDE 0.9% 500 ML IV SCH (17:10)
--- NOTE | 2017-05-01 17:23 | MRI Report ---
EXAM: LEFT FOREFOOT MRI WITHOUT AND WITH CONTRAST EXAM DATE: 05/01/2017 04:36 PM. CLINICAL HISTORY: Left fifth toe wound. Concern for osteomyelitis. COMPARISON: Left fifth toe radiography from 04/30/2017. TECHNIQUE: Multiplanar, multisequence T1-weighted and fluid-sensitive sequences of the forefoot befor e and after administration of intravenous contrast. IV contrast: 9 cc Gadavist. Other: None. FINDINGS: There is an open wound at the dorsolateral aspect of the fifth toe. There is abnormal marrow edema an d enhancement within the fifth middle and proximal phalanges. Marrow edema within the fifth distal ph alanx. There is an approximately 2.4 x 1.6 x 0.6 cm fluid intense collection within the subcutaneous fat at the dorsal medial aspect of the fifth toe and dorsal aspect of the fourth webspace concerning for an abscess. There is subcutaneous edema, swelling, and enhancement at the fifth toe. There is cortical flattening at the third and fourth metatarsal heads. Probable bone infarction or os teonecrosis at the fourth and third metatarsal heads. Small effusion at the fifth metatarsal-phalangeal joint. Previous amputation of the second digit to the level of the second metatarsal head. Old healed fracture deformity of the first metatarsal. Ligaments: The visualized collateral ligaments are intact. Tendons: The flexor and extensor tendons are unremarkable. Musculature: Edema and enhancement within the visualized musculature. Other: No Mortons neuroma. No intermetatarsal bursitis. Subcutaneous edema, swelling, and enhancemen t at the dorsal aspect of the forefoot and midfoot. There are magnetic susceptibility artifacts withi n the subcutaneous tissues of the forefoot. IMPRESSION: 1. Open wound at the dorsolateral aspect of the fifth toe. Abnormal marrow edema and enhancement with in the fifth middle and proximal phalanges concerning for osteomyelitis. Marrow edema within the fift h distal phalanx which may also represent osteomyelitis. 2. A 2.4 x 1.6 x 0.6 cm subcutaneous abscess at the dorsal medial aspect of the fifth toe and dorsal aspect of the fourth webspace. 3. Cellulitis of the fifth toe and dorsal aspect of the foot. 4. Bone infarction or osteonecrosis and cortical flattening at the third and fourth metatarsal heads. 5. Small fifth metatarsal phalangeal joint. 6. Old healed fracture deformity of the first metatarsal. 7. Edema and enhancement within the visualized musculature which may represent inflammatory or infect ious myositis. [facility] MUSCULOSKELETAL RADIOLOGY SECTION The above critical findings were discussed with Rausch by Dr. Quintin Mata at 17:19 hrs on 05/01/17. Referring Provider Line: [phone] SITE ID: [id number]
--- NOTE | 2017-05-01 17:39 | HISTORY & PHYSICAL EXAMINATION ---
Chief Complaint - Chief Complaint Chief Complaint: foot infection History of Present Illness - Admitted From Admitted From:: emergence department - History Obtained From History obtained from: patient - History of Present Illness HPI Comment/Other: This is a 51-year-old male with a past medical history of DM2, recurrent bilateral foot infection, status post amputation of of right big toe and left second toe, who present [facility] for left small toe infection. Patient report her foot has been on infection about four days. He visited his primary doctor office, and have Clindamycin and Augmentin prescribed. He report his foot infection did not get better, and continue to have some drainage and pain. Patient report he has been on good control on his blood sugar. He had Lantus and Novolog insulin as scheduled to be SUBQ injected to control his sugar. Patient report Doctor Ritika did amputation on his right big toe and left second toe on last year and early this year. Patient state he prefer to be amputated again on his toe if osteomyelitis presents. He is ready from physiological and psychological point. Patient state he had the similar feeling as before, his foot had osteomyelitis. Patient denies fever, chill, night sweating, chest pain, other symptoms at this point. 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 Lab test reveals WBC 13.3 and left shift, CRP 14.3, ESR 28. Vital signs are stable, no fever. Patient is admitted for IV antibiotic to control wound infection, wound care, and will do MRI and consult surgeon after MRI. Review of Systems - Constitutional Constitutional: denies: Fatigue, Fever, Chills, Malaise, Weakness, Poor appetite , Diaphoresis, Night sweats - Eyes Eyes: denies: Pain, Irritation, Blurred vision, Spots in vision, Field loss, Vision loss, Dipolpia - Ears, Nose & Throat Ears, Nose & Throat: denies: Ear pain, Hearing loss, Hearing aids, Tinnitus, Vertigo, Nasal pain, Nasal discharge, Nosebleeds, Postnasal drainage, Dentures, Sore throat, Hoarseness - Cardiovascular Cariovascular: denies: Irregular heart rate, Palpitations, Chest pain, Edema, Lightheadedness, Syncope, Exertional dyspnea, Orthopnea - Respiratory Respiratory: denies: Cough, Sputum production, Wheezing, Snoring, Hemoptysis, Orthopnea, SOB at rest, SOB with exertion, Apnea - Gastrointestinal Gastrointestinal: denies: Abdominal pain, Abdominal distention, Constipation, Diarrhea, Change in bowel habits, Rectal bleeding, Black stools, Bloody stools, Nausea, Vomiting, Andrea blood emesis, Coffee grounds emesis, Poor appetite - Genitourinary Genitourinary: denies: Dysuria, Frequency, Urgency, Hematuria, Incontinence, Flank pain, Nocturia, Urethral discharge - Musculoskeletal Musculoskeletal: denies: Muscle pain, Back pain, Muscle aches, Stiffness, Limited range of motion, Muscle weakness, Gout - Integumentary Integumentary: reports: Rash, Lesions, Pigment changes, Nail changes. denies: Pruritis, Dryness, Lumps, Acne, Hair changes - Neurological Neurological: denies: General weakness, Focal weakness, Headache, Dizziness, Numbness, Memory problems, Pre-existing deficit, Abnormal gait, Seizures, Incoordination, Slurred speech - Psychiatric Psychiatric: denies: Depression, Anxiety, Suicidal, Delusions, Hallucinations, Homicidal - Endocrine Endocrine: denies: Polyuria, Polydypsia, Polyphagia, Intolerance to cold, Intolerance to heat - Hematologic/Lymphatic Hematologic/Lymphatic: reports: Recurrent infections. denies: Anemia, Bruising , Petechiae, Blood clots, Lymphadenopathy, Bleeding tendencies History - Past Medical History Cardiovascular: reports: None Respiratory: reports: None Neuro: reports: None Endocrine/Autoimmune: reports: Type 2 diabetes GI: reports: None : reports: None HEENT: reports: None Psych: reports: None Musculoskeletal: reports: None Derm: reports: None MRSA Hx?: No - Past Surgical History General: reports: Appendectomy Ortho: reports: Other - Family & Social History Family History: Mother: , Father: , Brother: Diabetes, Type 2 Living arrangement: At home Living Situation: Alone - Substance History Use: Uses substance without health or social issues: NONE - POLST Patient has POLST: No Meds/Allgy - Home Medications Home Medications: Ambulatory Orders Medication Instructions Recorded Confirmed Insulin Glargine,Hum.rec.anlog 30 units SQ QPM 03/07/15 05/01/17 [Lantus Solostar] Gabapentin 600 mg PO DAILY 03/11/16 05/01/17 Gabapentin 300 mg PO QPM 10/05/16 05/01/17 Sildenafil Citrate [Sildenafil] 20 mg PO QPM PRN 10/21/16 05/01/17 Insulin Aspart [NovoLOG] 0 unit SUBQ 0800,1200,1700,2100 11/28/16 05/01/17 #30 pen - Allergies Allergies/Adverse Reactions: Allergies Allergy/AdvReac Type Severity Reaction Status Date / Time No Known Drug Allergies Allergy Verified 10/14/16 22:09 Exam - Physical Exam General Appearance: positive: No acute distress, Alert Eyes Bilateral: positive: Normal inspection, PERRL ENT: positive: ENT inspection nml, Pharynx nml, No signs of dehydration Neck: positive: Nml inspection, Thyroid nml, No JVD, Trachea midline Respiratory: positive: Chest non-tender, No respiratory distress, Breath sounds nml Cardiovascular: positive: Regular rate & rhythm, No murmur, No gallop Peripheral Pulses: positive: 2+ Abdomen: positive: Non-tender, No organomegaly, Nml bowel sounds, No distention Back: positive: Nml inspection Skin: positive: Color nml, No rash, Warm, Dry Extremities: positive: Other (swelling, and drainage at the lateral side of left foot. There is black necrosis at left little toe.) Neurologic/Psychiatric: positive: Oriented x3, CN's nml (2-12), Motor nml, Mood/ affect nml Conclusion/Plan - Problem List (1) Diabetes Conclusion/Plan: reconciliation of home Lantus slide scale, ACHS, as needed for insulin (2) Diabetic foot infection Conclusion/Plan: blood and wound culture done at ER, will follow up the result IV antibiotics zosyn and vancomycin consult with wound carer MRI test, follow up the test, consult with surgeon as needed (3) Diabetic neuropathy Conclusion/Plan: reconciliation of his home Gabapentin, monitor and adjust as needed - Lab Results Fish Bones: 05/06/17 05:19 05/06/17 05:19 Issues/Core Measures - Anticipated LOS Anticipated Stay Length: 2 or more midnights - Issues Hospital Issues and Management Plan: Heparin for DVT prophylaxis - DVT/VTE - Prophylaxis VTE/DVT Device ordered at admit?: Yes
--- NOTE | 2017-05-01 19:50 | PROVIDER PROGRESS NOTE ---
Subjective - Subjective Pt reports feeling: Improved Subjective: patient feels better, on other complaints Objective - Vital Signs/Intake & Output Vital Signs: Vital Signs x48h Temp Pulse Resp BP Pulse Ox 05/01/17 16:45 36.5 C 66 16 140/81 H 97 Intake & Output: Intake & Output 04/28/17 04/29/17 04/30/17 05/01/17 23:59 23:59 23:59 23:59 Intake Total 480 2710 Balance 480 2710 - Objective General Appearance: positive: No acute distress, Alert Eyes Bilateral: positive: Normal inspection, PERRL, EOMI ENT: positive: ENT inspection nml, Pharynx nml, No signs of dehydration Neck: positive: Nml inspection, Trachea midline Respiratory: positive: Chest non-tender, No respiratory distress, Breath sounds nml Cardiovascular: positive: Regular rate & rhythm, No murmur, No gallop Peripheral Pulses: 1+ Dorsalis pedis (R), 1+ Dorsalis pedis (L), 2+ Radial (R), 2+ Radial (L) Abdomen: positive: Non-tender, Nml bowel sounds, No distention Back: positive: Nml inspection Skin: positive: Color nml, Warm Extremities: positive: Non-tender, Full ROM, Other (black color tissue around at left small toe) Neurologic/Psychiatric: positive: Oriented x3, CN's nml (2-12), Motor nml, Mood/ affect nml - Lab Results Fish Bones: 05/02/17 05:09 05/02/17 05:09 Other Labs: Lab Results x24hrs 05/01/17 05/01/17 05/01/17 Range/Units 11:12 05:48 05:48 WBC 9.7 (4.8-10.8) x10^3/uL RBC 4.54 L (4.70-6.10) 10^6/uL Hgb 14.9 (14.0-18.0) g/dL Hct 43.7 (42.0-52.0) % MCV 96.3 H (80.0-94.0) fL MCH 32.9 H (27.0-31.0) pg MCHC 34.2 (32.0-36.0) g/dL RDW 12.6 (12.0-15.0) % Plt Count 202 (130-450) 10^3/uL MPV 8.9 (7.4-11.4) fL Neut # 6.8 H (1.5-6.6) 10^3/uL Lymph # 1.2 L (1.5-3.5) 10^3/uL [place] # 1.1 H (0.0-1.0) 10^3/uL Eos # 0.4 (0.0-0.7) 10^3/uL Baso # 0.1 (0.0-0.1) 10^3/uL Absolute Nucleated RBC 0.01 x10^3/uL Nucleated RBCs 0.1 /100WBC Sodium 132 L (135-145) mmol/L Potassium 3.9 (3.5-5.0) mmol/L Chloride 101 (101-111) mmol/L Carbon Dioxide 24 (21-32) mmol/L Anion Gap 7.0 (6-13) BUN 19 (6-20) mg/dL Creatinine 0.6 (0.6-1.2) mg/dL Estimated GFR (MDRD) 141 (>89) Glucose 256 H (70-100) mg/dL POC Whole Bld Glucose 283 H (70 - 100) mg/dL Calcium 8.2 L (8.5-10.3) mg/dL Magnesium 2.0 (1.7-2.8) mg/dL Total Bilirubin 0.9 (0.2-1.0) mg/dL AST 11 (10-42) IU/L ALT 12 (10-60) IU/L Alkaline Phosphatase 65 (42-121) IU/L Total Protein 6.3 L (6.7-8.2) g/dL Albumin 3.0 L (3.2-5.5) g/dL Globulin 3.3 (2.1-4.2) g/dL Albumin/Globulin Ratio 0.9 L (1.0-2.2) 04/30/17 Range/Units 20:42 WBC (4.8-10.8) x10^3/uL RBC (4.70-6.10) 10^6/uL Hgb (14.0-18.0) g/dL Hct (42.0-52.0) % MCV (80.0-94.0) fL MCH (27.0-31.0) pg MCHC (32.0-36.0) g/dL RDW (12.0-15.0) % Plt Count (130-450) 10^3/uL MPV (7.4-11.4) fL Neut # (1.5-6.6) 10^3/uL Lymph # (1.5-3.5) 10^3/uL [place] # (0.0-1.0) 10^3/uL Eos # (0.0-0.7) 10^3/uL Baso # (0.0-0.1) 10^3/uL Absolute Nucleated RBC x10^3/uL Nucleated RBCs /100WBC Sodium (135-145) mmol/L Potassium (3.5-5.0) mmol/L Chloride (101-111) mmol/L Carbon Dioxide (21-32) mmol/L Anion Gap (6-13) BUN (6-20) mg/dL Creatinine (0.6-1.2) mg/dL Estimated GFR (MDRD) (>89) Glucose (70-100) mg/dL POC Whole Bld Glucose 134 H (70 - 100) mg/dL Calcium (8.5-10.3) mg/dL Magnesium (1.7-2.8) mg/dL Total Bilirubin (0.2-1.0) mg/dL AST (10-42) IU/L ALT (10-60) IU/L Alkaline Phosphatase (42-121) IU/L Total Protein (6.7-8.2) g/dL Albumin (3.2-5.5) g/dL Globulin (2.1-4.2) g/dL Albumin/Globulin Ratio (1.0-2.2) Assessment/Plan - Problem List (1) Diabetes Impression: order MRI for left foot, will follow up to determine surgeon consulting continue zosyn and vancomycin treatment add lantus for night insulin wound care consulting
[2017-05-01] MEDS: INSULIN GLARGINE 300 UNIT/3 ML PEN SUBQ SCH (21:25)
[2017-05-02] MEDS: ZOLPIDEM 5 MG TABLET PO PRN ×2 (00:02→22:32)
[2017-05-02] MEDS: HYDROcod/ACETAM 5/325 MG TABLET PO PRN ×3 (02:27→18:33)
[2017-05-02] MEDS: PIPERACILLIN/TAZOBACTAM 3.375 GM in SODIUM CHLORIDE 0.9% MINIBAG 100 ML IV SCH ×4 (04:23→22:26)
[2017-05-02] MEDS: VANCOMYCIN INJ 1.5 GM in SODIUM CHLORIDE 0.9% 500 ML IV SCH (04:24)
[2017-05-02] MEDS: SODIUM CHLORIDE FLUSH 0.9% 10 ML SYRINGE IVP PRN (04:25)
[2017-05-02] MEDS: SODIUM CHLORIDE FLUSH 0.9% 10 ML SYRINGE IVP SCH ×3 (05:19→20:17)
[2017-05-02 05:50] LABS: BASOPHILS # (AUTO) 0.1 10^3/uL (0.0-0.1); BASOPHILS % (AUTO) 1.1 %; EOSINOPHILS # (AUTO) 0.4 10^3/uL (0.0-0.7); EOSINOPHILS % (AUTO) 5.8 %; HGB - HEMOGLOBIN 14.8 g/dL (14.0-18.0); LYMPHOCYTES # (AUTO) 1.4 10^3/uL (1.5-3.5); LYMPHOCYTES % (AUTO) 19.2 %; MEAN CORPUSCULAR HEMOGLOBIN 33.1 pg (27.0-31.0); MEAN CORPUSCULAR HGB CONC 34.5 g/dL (32.0-36.0); MEAN CORPUSCULAR VOLUME 96.1 fL (80.0-94.0); MEAN PLATELET VOLUME 8.8 fL (7.4-11.4); MONOCYTES % (AUTO) 13.6 %; NEUTROPHILS # (AUTO) 4.5 10^3/uL (1.5-6.6); NEUTROPHILS % (AUTO) 60.3 %; RED BLOOD COUNT 4.47 10^6/uL (4.70-6.10); RED CELL DISTRIBUTION WIDTH 12.6 % (12.0-15.0); UNCORRECTED WHITE BLOOD COUNT 7.4 x10^3/uL; WHITE BLOOD COUNT 7.4 x10^3/uL (4.8-10.8)
[2017-05-02 06:07] LABS: ALBUMIN/GLOBULIN RATIO 0.9 (1.0-2.2); BILIRUBIN,TOTAL 0.6 mg/dL (0.2-1.0); CALCIUM 8.5 mg/dL (8.5-10.3); CREATININE 0.6 mg/dL (0.6-1.2); MAGNESIUM 1.9 mg/dL (1.7-2.8); POTASSIUM 3.8 mmol/L (3.5-5.0); TOTAL PROTEIN 6.6 g/dL (6.7-8.2)
[2017-05-02] MEDS: INSULIN ASPART 300 UNIT/3 ML PEN SUBQ SCH ×6 (08:16→20:17)
[2017-05-02] MEDS ORDERED: GABAPENTIN 300 MG CAPSULE PO SCH ×2 (09:00→21:00)
[2017-05-02] MEDS: ENOXAPARIN 40 MG/0.4 ML SYRINGE SUBQ SCH (09:05)
[2017-05-02] MEDS: NICOTINE 21 MG PATCH TOP SCH ×2 (09:07→20:14)
[2017-05-02] MEDS: FAMOTIDINE 20 MG TABLET PO SCH (09:20)
[2017-05-02] MEDS: POLYETHYLENE GLYCOL 3350 17 GM PACKET PO SCH (09:20)
--- NOTE | 2017-05-02 10:49 | CONSULTATION NOTE ---
ORTHOPEDIC CONSULTATION DATE OF CONSULTATION: 05/02/2017 00:00:00 REQUESTING PROVIDER: MADAY Rausch REASON FOR CONSULTATION: Left foot infection. HISTORY OF PRESENT ILLNESS: The patient is a 51-year-old male previously known to me because of diabetic foot ulcerations and osteomyelitis causing prior amputations. The patient has a recent 4 day history of increasing pain and swelling and drainage from his left small toe and 4th toe, with soft tissue swelling and cellulitis. The patient has been in the hospital receiving IV antibiotics and has ongoing pain and swelling and an MRI showing abscess and osteomyelitis of his 5th toe. PAST MEDICAL HISTORY: Patient's prior medical history is as documented in the medical record, including type 2 diabetes, insulin-dependent. PAST SURGICAL HISTORY: Prior surgeries are appendectomy and toe amputations. On the left side he has had a prior 2nd toe amputation. REVIEW OF SYSTEMS: Otherwise negative. LABORATORY VALUES: Laboratory values are reviewed and consistent with infection in the foot, with elevated white count and sedimentation rate, and MRI positive for osteomyelitis. IMPRESSION: This is a 51-year-old male with a significant cellulitis of the left foot and accompanying 5th toe osteomyelitis and dorsal abscess between the 4th and 5th toes. I have had a discussion with the patient about treatment options, including an option of 5th toe amputation with staged debridements and attempt at preservation of the lateral aspect of his foot versus a more aggressive approach which would be a Syme amputation or BKA amputation. The patient on initial discussion is preferring a more aggressive amputation and removal of his foot. I recommend the patient have ankle brachial indices for vascular supply, that he be prepared for surgery to be done on 05/03/2017 with appropriate n.p.o. status, and that further discussion be held on 05/03/2017 in the morning after the patient has had time to reflect on the options of treatment before conclusively deciding on a treatment path of the options I have given him. JOB #: [id number] EXT JOB #:[id number] MTDD
[2017-05-02 12:51] LABS: HEMOGLOBIN A1C 1.36 g/dL
--- NOTE | 2017-05-02 14:52 | PROVIDER PROGRESS NOTE ---
Subjective - Subjective Pt reports feeling: No change Subjective: patient report no other complaints, explained the MRI result to patient, patient state he accept the MRI result of osteomyelitis. Patient state he is ready to discuss with surgeon for options. Objective - Vital Signs/Intake & Output Vital Signs: Vital Signs x48h Temp Pulse Resp BP Pulse Ox 05/02/17 08:26 36.5 C 60 14 131/75 H 97 Intake & Output: Intake & Output 04/29/17 04/30/17 05/01/17 05/02/17 23:59 23:59 23:59 23:59 Intake Total 480 3764 1591 Output Total 750 Balance 480 3764 841 - Objective General Appearance: positive: No acute distress, Alert Eyes Bilateral: positive: Normal inspection, PERRL, EOMI ENT: positive: ENT inspection nml, Pharynx nml, No signs of dehydration Neck: positive: Nml inspection, Thyroid nml, Trachea midline Respiratory: positive: Chest non-tender, No respiratory distress, Breath sounds nml Cardiovascular: positive: Regular rate & rhythm, No murmur, No gallop Peripheral Pulses: 1+ Dorsalis pedis (R), 1+ Dorsalis pedis (L), 2+ Radial (R), 2+ Radial (L) Abdomen: positive: Non-tender, Nml bowel sounds, No distention Back: positive: Nml inspection Skin: positive: Color nml, Warm Extremities: positive: Non-tender, Full ROM, Nml appearance, Other (left small toe with black nectical tissue) Neurologic/Psychiatric: positive: Oriented x3, CN's nml (2-12), Motor nml, Sensation nml, Mood/affect nml - Lab Results Fish Bones: 05/02/17 05:09 05/02/17 05:09 Other Labs: Lab Results x24hrs 05/02/17 05/02/17 05/02/17 Range/Units 11:48 07:49 05:09 WBC (4.8-10.8) x10^3/uL RBC (4.70-6.10) 10^6/uL Hgb (14.0-18.0) g/dL Hct (42.0-52.0) % MCV (80.0-94.0) fL MCH (27.0-31.0) pg MCHC (32.0-36.0) g/dL RDW (12.0-15.0) % Plt Count (130-450) 10^3/uL MPV (7.4-11.4) fL Neut # (1.5-6.6) 10^3/uL Lymph # (1.5-3.5) 10^3/uL [place] # (0.0-1.0) 10^3/uL Eos # (0.0-0.7) 10^3/uL Baso # (0.0-0.1) 10^3/uL Absolute Nucleated RBC x10^3/uL Nucleated RBCs /100WBC Sodium (135-145) mmol/L Potassium (3.5-5.0) mmol/L Chloride (101-111) mmol/L Carbon Dioxide (21-32) mmol/L Anion Gap (6-13) BUN (6-20) mg/dL Creatinine (0.6-1.2) mg/dL Estimated GFR (MDRD) (>89) Glucose (70-100) mg/dL POC Whole Bld Glucose 275 H 158 H (70 - 100) mg/dL Glycated Hemoglobin 10.2 H (4.6-6.2) % Estim Average Glucose 246 H (70-100) Calcium (8.5-10.3) mg/dL Magnesium (1.7-2.8) mg/dL Total Bilirubin (0.2-1.0) mg/dL AST (10-42) IU/L ALT (10-60) IU/L Alkaline Phosphatase (42-121) IU/L Total Protein (6.7-8.2) g/dL Albumin (3.2-5.5) g/dL Globulin (2.1-4.2) g/dL Albumin/Globulin Ratio (1.0-2.2) 05/02/17 05/02/17 05/02/17 Range/Units 05:09 05:09 00:18 WBC 7.4 (4.8-10.8) x10^3/uL RBC 4.47 L (4.70-6.10) 10^6/uL Hgb 14.8 (14.0-18.0) g/dL Hct 43.0 (42.0-52.0) % MCV 96.1 H (80.0-94.0) fL MCH 33.1 H (27.0-31.0) pg MCHC 34.5 (32.0-36.0) g/dL RDW 12.6 (12.0-15.0) % Plt Count 228 (130-450) 10^3/uL MPV 8.8 (7.4-11.4) fL Neut # 4.5 (1.5-6.6) 10^3/uL Lymph # 1.4 L (1.5-3.5) 10^3/uL [place] # 1.0 (0.0-1.0) 10^3/uL Eos # 0.4 (0.0-0.7) 10^3/uL Baso # 0.1 (0.0-0.1) 10^3/uL Absolute Nucleated RBC 0.00 x10^3/uL Nucleated RBCs 0.0 /100WBC Sodium 136 (135-145) mmol/L Potassium 3.8 (3.5-5.0) mmol/L Chloride 101 (101-111) mmol/L Carbon Dioxide 26 (21-32) mmol/L Anion Gap 9.0 (6-13) BUN 12 (6-20) mg/dL Creatinine 0.6 (0.6-1.2) mg/dL Estimated GFR (MDRD) 141 (>89) Glucose 163 H (70-100) mg/dL POC Whole Bld Glucose 241 H (70 - 100) mg/dL Glycated Hemoglobin (4.6-6.2) % Estim Average Glucose (70-100) Calcium 8.5 (8.5-10.3) mg/dL Magnesium 1.9 (1.7-2.8) mg/dL Total Bilirubin 0.6 (0.2-1.0) mg/dL AST 12 (10-42) IU/L ALT 13 (10-60) IU/L Alkaline Phosphatase 62 (42-121) IU/L Total Protein 6.6 L (6.7-8.2) g/dL Albumin 3.1 L (3.2-5.5) g/dL Globulin 3.5 (2.1-4.2) g/dL Albumin/Globulin Ratio 0.9 L (1.0-2.2) Assessment/Plan - Problem List (1) Diabetes Impression: call surgeon Dr. Yost and consult regarding the MRI result and patient's left foot. Doctor did the previous surgery for patient. Patient state he prefer Dr Yost to see him. Doctor say he will patient will follow surgeon's recommendation. continue antibiotics treatment continue wound care.
[2017-05-02] MEDS: VANCOMYCIN INJ 1 GM in SODIUM CHLORIDE 0.9% 250 ML IV SCH ×2 (16:53→16:58)
[2017-05-02] MEDS: INSULIN GLARGINE 300 UNIT/3 ML PEN SUBQ SCH (22:22)
[2017-05-03 06:18] LABS: BASOPHILS # (AUTO) 0.1 10^3/uL (0.0-0.1); BASOPHILS % (AUTO) 1.4 %; EOSINOPHILS # (AUTO) 0.4 10^3/uL (0.0-0.7); EOSINOPHILS % (AUTO) 4.6 %; HCT - HEMATOCRIT 46.1 % (42.0-52.0); HGB - HEMOGLOBIN 15.3 g/dL (14.0-18.0); LYMPHOCYTES # (AUTO) 1.3 10^3/uL (1.5-3.5); LYMPHOCYTES % (AUTO) 15.1 %; MEAN CORPUSCULAR HGB CONC 33.3 g/dL (32.0-36.0); MEAN CORPUSCULAR VOLUME 96.3 fL (80.0-94.0); MEAN PLATELET VOLUME 8.8 fL (7.4-11.4); MONOCYTES # (AUTO) 1.1 10^3/uL (0.0-1.0); MONOCYTES % (AUTO) 13.5 %; NEUTROPHILS # (AUTO) 5.5 10^3/uL (1.5-6.6); NEUTROPHILS % (AUTO) 65.4 %; RED BLOOD COUNT 4.78 10^6/uL (4.70-6.10); RED CELL DISTRIBUTION WIDTH 12.7 % (12.0-15.0); UNCORRECTED WHITE BLOOD COUNT 8.4 x10^3/uL; WHITE BLOOD COUNT 8.4 x10^3/uL (4.8-10.8)
[2017-05-03 06:31] LABS: BILIRUBIN,TOTAL 0.5 mg/dL (0.2-1.0); CALCIUM 8.9 mg/dL (8.5-10.3); CREATININE 0.7 mg/dL (0.6-1.2); POTASSIUM 3.9 mmol/L (3.5-5.0); TOTAL PROTEIN 6.7 g/dL (6.7-8.2)
[2017-05-03] MEDS: PIPERACILLIN/TAZOBACTAM 3.375 GM in SODIUM CHLORIDE 0.9% MINIBAG 100 ML IV SCH ×4 (08:08→23:00)
[2017-05-03] MEDS: SODIUM CHLORIDE FLUSH 0.9% 10 ML SYRINGE IVP SCH ×3 (08:09→20:18)
[2017-05-03] MEDS: VANCOMYCIN INJ 1 GM in SODIUM CHLORIDE 0.9% 250 ML IV SCH (08:51)
[2017-05-03] MEDS: INSULIN ASPART 300 UNIT/3 ML PEN SUBQ SCH ×5 (08:53→21:42)
[2017-05-03] MEDS ORDERED: LACTATED RINGERS 1,000 ML IV ONE ×2 (09:06→10:17)
--- NOTE | 2017-05-03 10:13 | PROVIDER PROGRESS NOTE ---
Subjective - Subjective Pt reports feeling: Improved Subjective: patient is walking at nurse station, state he is great, he will have surgery for his foot on today morning. Patient state he will discuss with surgeon about his surgery option again. Objective - Vital Signs/Intake & Output Vital Signs: Vital Signs x48h Temp Pulse Resp BP Pulse Ox 05/03/17 09:22 36.6 C 61 16 112/68 98 Intake & Output: Intake & Output 04/30/17 05/01/17 05/02/17 05/03/17 23:59 23:59 23:59 23:59 Intake Total 480 3764 2451 Output Total 750 Balance 480 3764 1701 - Objective General Appearance: positive: No acute distress, Alert Eyes Bilateral: positive: Normal inspection, PERRL, EOMI ENT: positive: ENT inspection nml, Pharynx nml, No signs of dehydration Neck: positive: Nml inspection, Thyroid nml, Trachea midline Respiratory: positive: Chest non-tender, No respiratory distress, Breath sounds nml Cardiovascular: positive: Regular rate & rhythm, No murmur, No gallop Peripheral Pulses: 1+ Dorsalis pedis (R), 1+ Dorsalis pedis (L), 2+ Radial (R), 2+ Radial (L) Abdomen: positive: Non-tender, Nml bowel sounds, No distention Back: positive: Nml inspection Skin: positive: Color nml, Warm, Other (except left foot. black nectoral small toe, and swell of left foot) Extremities: positive: Non-tender, Full ROM, Other (except left foot as above) Neurologic/Psychiatric: positive: Oriented x3, CN's nml (2-12), Motor nml, Sensation nml, Mood/affect nml - Lab Results Fish Bones: 05/03/17 05:48 05/03/17 05:48 Other Labs: Lab Results x24hrs 05/03/17 05/03/17 05/03/17 Range/Units 08:53 05:48 05:48 WBC 8.4 (4.8-10.8) x10^3/uL RBC 4.78 (4.70-6.10) 10^6/uL Hgb 15.3 (14.0-18.0) g/dL Hct 46.1 (42.0-52.0) % MCV 96.3 H (80.0-94.0) fL MCH 32.0 H (27.0-31.0) pg MCHC 33.3 (32.0-36.0) g/dL RDW 12.7 (12.0-15.0) % Plt Count 239 (130-450) 10^3/uL MPV 8.8 (7.4-11.4) fL Neut # 5.5 (1.5-6.6) 10^3/uL Lymph # 1.3 L (1.5-3.5) 10^3/uL [place] # 1.1 H (0.0-1.0) 10^3/uL Eos # 0.4 (0.0-0.7) 10^3/uL Baso # 0.1 (0.0-0.1) 10^3/uL Absolute Nucleated RBC 0.00 x10^3/uL Nucleated RBCs 0.0 /100WBC Sodium 136 (135-145) mmol/L Potassium 3.9 (3.5-5.0) mmol/L Chloride 100 L (101-111) mmol/L Carbon Dioxide 28 (21-32) mmol/L Anion Gap 8.0 (6-13) BUN 14 (6-20) mg/dL Creatinine 0.7 (0.6-1.2) mg/dL Estimated GFR (MDRD) 118 (>89) Glucose 211 H (70-100) mg/dL POC Whole Bld Glucose 249 H (70 - 100) mg/dL Glycated Hemoglobin (4.6-6.2) % Estim Average Glucose (70-100) Calcium 8.9 (8.5-10.3) mg/dL Total Bilirubin 0.5 (0.2-1.0) mg/dL AST 13 (10-42) IU/L ALT 15 (10-60) IU/L Alkaline Phosphatase 65 (42-121) IU/L Total Protein 6.7 (6.7-8.2) g/dL Albumin 3.3 (3.2-5.5) g/dL Globulin 3.4 (2.1-4.2) g/dL Albumin/Globulin Ratio 1.0 (1.0-2.2) Last Dose Date Last Dose Time Vancomycin Trough (5.0-15.0) ug/mL 05/02/17 05/02/17 05/02/17 Range/Units 20:16 16:39 15:05 WBC (4.8-10.8) x10^3/uL RBC (4.70-6.10) 10^6/uL Hgb (14.0-18.0) g/dL Hct (42.0-52.0) % MCV (80.0-94.0) fL MCH (27.0-31.0) pg MCHC (32.0-36.0) g/dL RDW (12.0-15.0) % Plt Count (130-450) 10^3/uL MPV (7.4-11.4) fL Neut # (1.5-6.6) 10^3/uL Lymph # (1.5-3.5) 10^3/uL [place] # (0.0-1.0) 10^3/uL Eos # (0.0-0.7) 10^3/uL Baso # (0.0-0.1) 10^3/uL Absolute Nucleated RBC x10^3/uL Nucleated RBCs /100WBC Sodium (135-145) mmol/L Potassium (3.5-5.0) mmol/L Chloride (101-111) mmol/L Carbon Dioxide (21-32) mmol/L Anion Gap (6-13) BUN (6-20) mg/dL Creatinine (0.6-1.2) mg/dL Estimated GFR (MDRD) (>89) Glucose (70-100) mg/dL POC Whole Bld Glucose 106 H 293 H (70 - 100) mg/dL Glycated Hemoglobin (4.6-6.2) % Estim Average Glucose (70-100) Calcium (8.5-10.3) mg/dL Total Bilirubin (0.2-1.0) mg/dL AST (10-42) IU/L ALT (10-60) IU/L Alkaline Phosphatase (42-121) IU/L Total Protein (6.7-8.2) g/dL Albumin (3.2-5.5) g/dL Globulin (2.1-4.2) g/dL Albumin/Globulin Ratio (1.0-2.2) Last Dose Date 05/02/2017 Last Dose Time 0424 Vancomycin Trough 9.8 (5.0-15.0) ug/mL 05/02/17 05/02/17 Range/Units 11:48 05:09 WBC (4.8-10.8) x10^3/uL RBC (4.70-6.10) 10^6/uL Hgb (14.0-18.0) g/dL Hct (42.0-52.0) % MCV (80.0-94.0) fL MCH (27.0-31.0) pg MCHC (32.0-36.0) g/dL RDW (12.0-15.0) % Plt Count (130-450) 10^3/uL MPV (7.4-11.4) fL Neut # (1.5-6.6) 10^3/uL Lymph # (1.5-3.5) 10^3/uL [place] # (0.0-1.0) 10^3/uL Eos # (0.0-0.7) 10^3/uL Baso # (0.0-0.1) 10^3/uL Absolute Nucleated RBC x10^3/uL Nucleated RBCs /100WBC Sodium (135-145) mmol/L Potassium (3.5-5.0) mmol/L Chloride (101-111) mmol/L Carbon Dioxide (21-32) mmol/L Anion Gap (6-13) BUN (6-20) mg/dL Creatinine (0.6-1.2) mg/dL Estimated GFR (MDRD) (>89) Glucose (70-100) mg/dL POC Whole Bld Glucose 275 H (70 - 100) mg/dL Glycated Hemoglobin 10.2 H (4.6-6.2) % Estim Average Glucose 246 H (70-100) Calcium (8.5-10.3) mg/dL Total Bilirubin (0.2-1.0) mg/dL AST (10-42) IU/L ALT (10-60) IU/L Alkaline Phosphatase (42-121) IU/L Total Protein (6.7-8.2) g/dL Albumin (3.2-5.5) g/dL Globulin (2.1-4.2) g/dL Albumin/Globulin Ratio (1.0-2.2) Last Dose Date Last Dose Time Vancomycin Trough (5.0-15.0) ug/mL Assessment/Plan - Problem List (2) Diabetic foot infection Impression: patient's vital and lab test reviewed, stable. patient has surgery today, will follow up
--- NOTE | 2017-05-03 10:19 | OPERATIVE REPORT ---
Operative Report - General Admit Date: 04/30/17 Procedure Date: 05/03/17 Planned Procedure: amputation left 5th toe and debridement Pre-Op Diagnosis: osteomyelitis left 5th toe Post Op Diagnosis: same - Procedure Note Primary Surgeon: josé Anesthesia Provider: Anderson: Spinal Anesthesia Technique: Combo spinal/epidural Pathology: abscess and osteomyelitis left 5th toe Drain/Tube Type: Other (nu-gauze)
[2017-05-03] MEDS ORDERED: PROPOFOL 200 MG/20 ML VIAL IVP ONE (10:22)
[2017-05-03] MEDS ORDERED: ACETAMINOPHEN 1,000 MG/100 ML 100 ML IV PRN (10:22)
[2017-05-03] MEDS ORDERED: ACETAMINOPHEN 325 MG TABLET PO PRN ×2 (10:22→10:25)
[2017-05-03] MEDS ORDERED: PROCHLORPERAZINE 10 MG/2 ML VIAL IVP PRN (10:22)
[2017-05-03] MEDS ORDERED: LIDOCAINE-MPF 2% 5 ML VIAL IM ONE (10:22)
[2017-05-03] MEDS ORDERED: MIDAZOLAM 2 MG/2 ML VIAL IVP ONE (10:22)
[2017-05-03] MEDS ORDERED: ONDANSETRON 4 MG/2 ML VIAL IVP PRN ×2 (10:22→10:25)
[2017-05-03] MEDS ORDERED: ACETAMINOPHEN 1,000 MG/100 ML 100 ML IV ONE (10:25)
[2017-05-03] MEDS ORDERED: KETOROLAC 15 MG/ML VIAL ONE (10:25)
[2017-05-03] MEDS ORDERED: INSULIN ASPART 300 UNIT/3 ML PEN SUBQ SCH ×2 (10:25→12:00)
[2017-05-03] MEDS ORDERED: SODIUM CHLORIDE FLUSH 0.9% 10 ML SYRINGE IVP PRN (10:25)
[2017-05-03] MEDS ORDERED: SODIUM CHLORIDE FLUSH 0.9% 10 ML SYRINGE IVP SCH (10:25)
[2017-05-03] MEDS: SODIUM CHLORIDE 0.9% 1,000 ML IV SCH ×2 (11:54→21:40)
[2017-05-03] MEDS: GABAPENTIN 300 MG CAPSULE PO SCH ×2 (14:15→21:40)
[2017-05-03] MEDS: NICOTINE 21 MG PATCH TOP SCH (14:15)
[2017-05-03] MEDS: MORPHINE 2 MG/ML SYRINGE IVP PRN ×2 (14:56→20:17)
[2017-05-03] MEDS ORDERED: VANCOMYCIN INJ 1 GM in SODIUM CHLORIDE 0.9% 250 ML IV SCH (16:00)
[2017-05-03] MEDS: VANCOMYCIN INJ 1 GM, VANCOMYCIN INJ 500 MG in SODIUM CHLORIDE 0.9% 500 ML IV SCH (17:01)
[2017-05-03] MEDS: INSULIN GLARGINE 300 UNIT/3 ML PEN SUBQ SCH (21:43)
[2017-05-03] MEDS: HYDROcod/ACETAM 5/325 MG TABLET PO PRN (23:00)
[2017-05-03] MEDS: ZOLPIDEM 5 MG TABLET PO PRN (23:50)
[2017-05-04] MEDS: VANCOMYCIN INJ 1 GM, VANCOMYCIN INJ 500 MG in SODIUM CHLORIDE 0.9% 500 ML IV SCH ×3 (00:02→16:45)
[2017-05-04] MEDS: SODIUM CHLORIDE 0.9% 1,000 ML IV SCH (01:50)
[2017-05-04] MEDS: PIPERACILLIN/TAZOBACTAM 3.375 GM in SODIUM CHLORIDE 0.9% MINIBAG 100 ML IV SCH ×4 (05:00→22:27)
[2017-05-04] MEDS: SODIUM CHLORIDE FLUSH 0.9% 10 ML SYRINGE IVP SCH ×3 (05:00→21:22)
[2017-05-04] MEDS: MORPHINE 2 MG/ML SYRINGE IVP PRN ×2 (05:14→11:26)
[2017-05-04 06:16] LABS: BASOPHILS # (AUTO) 0.1 10^3/uL (0.0-0.1); BASOPHILS % (AUTO) 1.3 %; EOSINOPHILS # (AUTO) 0.4 10^3/uL (0.0-0.7); EOSINOPHILS % (AUTO) 5.2 %; HCT - HEMATOCRIT 42.5 % (42.0-52.0); HGB - HEMOGLOBIN 14.2 g/dL (14.0-18.0); LYMPHOCYTES # (AUTO) 1.3 10^3/uL (1.5-3.5); LYMPHOCYTES % (AUTO) 15.6 %; MEAN CORPUSCULAR HEMOGLOBIN 32.4 pg (27.0-31.0); MEAN CORPUSCULAR HGB CONC 33.5 g/dL (32.0-36.0); MEAN CORPUSCULAR VOLUME 96.7 fL (80.0-94.0); MEAN PLATELET VOLUME 8.7 fL (7.4-11.4); MONOCYTES % (AUTO) 12.3 %; NEUTROPHILS # (AUTO) 5.4 10^3/uL (1.5-6.6); NEUTROPHILS % (AUTO) 65.6 %; RED BLOOD COUNT 4.39 10^6/uL (4.70-6.10); RED CELL DISTRIBUTION WIDTH 12.6 % (12.0-15.0); UNCORRECTED WHITE BLOOD COUNT 8.2 x10^3/uL; WHITE BLOOD COUNT 8.2 x10^3/uL (4.8-10.8)
[2017-05-04 06:36] LABS: ALBUMIN/GLOBULIN RATIO 0.9 (1.0-2.2); BILIRUBIN,TOTAL 0.4 mg/dL (0.2-1.0); CALCIUM 8.3 mg/dL (8.5-10.3); CREATININE 0.7 mg/dL (0.6-1.2); POTASSIUM 4.3 mmol/L (3.5-5.0); TOTAL PROTEIN 5.9 g/dL (6.7-8.2)
[2017-05-04] MEDS: INSULIN ASPART 300 UNIT/3 ML PEN SUBQ SCH ×7 (07:55→21:21)
[2017-05-04] MEDS: NICOTINE 21 MG PATCH TOP SCH (08:48)
[2017-05-04] MEDS: ENOXAPARIN 40 MG/0.4 ML SYRINGE SUBQ SCH (08:48)
[2017-05-04] MEDS: GABAPENTIN 300 MG CAPSULE PO SCH ×2 (08:49→21:21)
[2017-05-04] MEDS: FAMOTIDINE 20 MG TABLET PO SCH (08:49)
[2017-05-04] MEDS: POLYETHYLENE GLYCOL 3350 17 GM PACKET PO SCH (08:49)
--- NOTE | 2017-05-04 11:06 | PROVIDER PROGRESS NOTE ---
Subjective - General Admit Date: 04/30/17 Procedure Date: 05/03/17 Post Op Days: 1 Procedure Performed: amputation left 5th toe - Review of Systems Wound/Incisions: positive: Dressing dry and intact Musculoskeletal: positive: Foot pain Psychiatric: positive: No symptoms Objective - Patient Data Reviewed Vital Signs: Yes Vital Signs: Vital Signs x48h Temp Pulse Resp BP Pulse Ox 05/04/17 07:26 36.8 C 57 L 16 147/83 H 98 05/04/17 04:55 36.5 C 59 L 16 145/75 H 98 Intake & Output: Intake and Output Totals x24h 05/02/17 05/03/17 05/04/17 23:59 23:59 23:59 Intake Total 2451 1501 2693 Output Total 750 1200 3500 Balance 1701 301 -807 - Lab Results Lab Results: 05/04/17 05:30 05/04/17 05:30 Other Lab Results: Lab Results x24hrs 05/04/17 05/04/17 05/04/17 Range/Units 07:23 05:30 05:30 WBC 8.2 (4.8-10.8) x10^3/uL RBC 4.39 L (4.70-6.10) 10^6/uL Hgb 14.2 (14.0-18.0) g/dL Hct 42.5 (42.0-52.0) % MCV 96.7 H (80.0-94.0) fL MCH 32.4 H (27.0-31.0) pg MCHC 33.5 (32.0-36.0) g/dL RDW 12.6 (12.0-15.0) % Plt Count 231 (130-450) 10^3/uL MPV 8.7 (7.4-11.4) fL Neut # 5.4 (1.5-6.6) 10^3/uL Lymph # 1.3 L (1.5-3.5) 10^3/uL [place] # 1.0 (0.0-1.0) 10^3/uL Eos # 0.4 (0.0-0.7) 10^3/uL Baso # 0.1 (0.0-0.1) 10^3/uL Absolute Nucleated RBC 0.00 x10^3/uL Nucleated RBCs 0.0 /100WBC Sodium 136 (135-145) mmol/L Potassium 4.3 (3.5-5.0) mmol/L Chloride 103 (101-111) mmol/L Carbon Dioxide 26 (21-32) mmol/L Anion Gap 7.0 (6-13) BUN 11 (6-20) mg/dL Creatinine 0.7 (0.6-1.2) mg/dL Estimated GFR (MDRD) 118 (>89) Glucose 250 H (70-100) mg/dL POC Whole Bld Glucose 250 H (70 - 100) mg/dL Calcium 8.3 L (8.5-10.3) mg/dL Total Bilirubin 0.4 (0.2-1.0) mg/dL AST 13 (10-42) IU/L ALT 16 (10-60) IU/L Alkaline Phosphatase 57 (42-121) IU/L Total Protein 5.9 L (6.7-8.2) g/dL Albumin 2.8 L (3.2-5.5) g/dL Globulin 3.1 (2.1-4.2) g/dL Albumin/Globulin Ratio 0.9 L (1.0-2.2) Last Dose Date Last Dose Time Vancomycin Trough (5.0-15.0) ug/mL 05/03/17 Range/Units 15:33 WBC (4.8-10.8) x10^3/uL RBC (4.70-6.10) 10^6/uL Hgb (14.0-18.0) g/dL Hct (42.0-52.0) % MCV (80.0-94.0) fL MCH (27.0-31.0) pg MCHC (32.0-36.0) g/dL RDW (12.0-15.0) % Plt Count (130-450) 10^3/uL MPV (7.4-11.4) fL Neut # (1.5-6.6) 10^3/uL Lymph # (1.5-3.5) 10^3/uL [place] # (0.0-1.0) 10^3/uL Eos # (0.0-0.7) 10^3/uL Baso # (0.0-0.1) 10^3/uL Absolute Nucleated RBC x10^3/uL Nucleated RBCs /100WBC Sodium (135-145) mmol/L Potassium (3.5-5.0) mmol/L Chloride (101-111) mmol/L Carbon Dioxide (21-32) mmol/L Anion Gap (6-13) BUN (6-20) mg/dL Creatinine (0.6-1.2) mg/dL Estimated GFR (MDRD) (>89) Glucose (70-100) mg/dL POC Whole Bld Glucose (70 - 100) mg/dL Calcium (8.5-10.3) mg/dL Total Bilirubin (0.2-1.0) mg/dL AST (10-42) IU/L ALT (10-60) IU/L Alkaline Phosphatase (42-121) IU/L Total Protein (6.7-8.2) g/dL Albumin (3.2-5.5) g/dL Globulin (2.1-4.2) g/dL Albumin/Globulin Ratio (1.0-2.2) Last Dose Date 05/03/17 Last Dose Time 0851 Vancomycin Trough 9.5 (5.0-15.0) ug/mL - Current Medications Current Medications: Current Medications Generic Name Dose Route Start Last Admin Trade Name Freq PRN Reason Stop Dose Admin Acetaminophen/Hydrocodone Bitart 1 tab 05/03/17 10:25 05/03/17 23:00 [place] 5/325 PO 1 tab Q4HR PRN Administration Pain 5 to 7 Enoxaparin Sodium 40 mg 05/04/17 09:00 05/04/17 08:48 Lovenox SUBQ 40 mg DAILY LILLIAN Administration Famotidine 20 mg 05/04/17 09:00 05/04/17 08:49 Pepcid PO 20 mg DAILY LILLIAN Administration Gabapentin 600 mg 05/03/17 14:00 05/04/17 08:49 Neurontin PO 600 mg DAILY LILLIAN Administration Gabapentin 300 mg 05/03/17 21:00 05/03/17 21:40 Neurontin PO Not Given QPM LILLIAN Sodium Chloride 1,000 mls @ 100 mls/hr 05/03/17 11:00 05/04/17 01:50 Normal Saline 0.9% IV 100 mls/hr .Q10H LILLIAN Administration Acetaminophen 100 mls @ 400 mls/hr 05/03/17 10:22 05/03/17 10:35 Ofirmev IV 100 mls Q6HR PRN Administration PAIN Piperacillin Sod/Tazobactam 100 mls @ 200 mls/hr 05/03/17 11:00 05/04/17 05:00 Sod 3.375 gm/ Sodium Chloride IV 200 mls/hr Q6H LILLIAN Administration Vancomycin HCl 1 gm/ 500 mls @ 250 mls/hr 05/03/17 17:00 05/04/17 08:06 Vancomycin HCl 500 mg/ Sodium IV 250 mls/hr Chloride Q8H LILLIAN Administration Insulin Aspart 7 unit 05/03/17 17:00 05/04/17 07:55 Novolog SUBQ 7 unit TIDWM LILLIAN Administration Protocol Insulin Aspart 1 - 9 unit 05/04/17 08:00 05/04/17 07:55 Novolog SUBQ 5 unit 0800,1200,1700,2100 LILLIAN Administration Protocol Insulin Glargine 30 unit 05/03/17 21:00 05/03/17 21:43 Lantus Solostar SUBQ 30 unit QPM LILLIAN Administration Morphine Sulfate 2 mg 05/03/17 11:00 05/04/17 05:14 Morphine IVP 2 mg Q2HR PRN Administration PAIN Nicotine 1 patch 05/03/17 14:00 05/04/17 08:48 Nicoderm TOP 1 patch DAILY LILLIAN Administration Polyethylene Glycol 17 gm 05/04/17 09:00 05/04/17 08:49 Miralax PO Not Given DAILY LILLIAN Sodium Chloride 10 ml 05/03/17 14:00 05/04/17 05:00 Normal Saline Flush 0.9% IVP 10 ml Q8HR LILLIAN Administration Zolpidem Tartrate 5 mg 05/03/17 10:25 05/03/17 23:50 Ambien PO 5 mg QPM PRN Administration Insomnia - Physical Exam Wound/Incisions: positive: Dressing dry and intact General Appearance: positive: No acute distress Neurologic/Psychiatric: positive: Motor nml, Sensation nml, Mood/affect nml Impression/Plan - Problem List Problem List: POD #1: Healing as expected. No drainage. Plan to change dressing tomorrow, then begin dressing changes afterwards. Possible need for further surgery..to be determined at dressing change tomorrow.
--- NOTE | 2017-05-04 11:12 | OPERATIVE REPORT ---
DATE OF SURGERY: 05/03/2017 00:00:00 PREOPERATIVE DIAGNOSIS: Left foot fifth toe diabetic ulceration and osteomyelitis of the toe. POSTOPERATIVE DIAGNOSIS: Left foot fifth toe diabetic ulceration and osteomyelitis of the toe, with dorsal foot abscess. NAME OF PROCEDURE: Left foot amputation of fifth toe, and debridement of dorsal foot abscess. SURGEON: Eric Yost MD ANESTHESIA: General, by Leona Anderson. INDICATIONS FOR SURGERY: The patient is a 51-year-old male with a history of ulceration of his fifth toe due to poor-fitting shoe wear, which led to infection of his toe and caused him to be admitted to the hospital on 04/30/2017 with an impending abscess, cellulitis and chronic drainage from his fifth toe. Evaluation there revealed osteomyelitis of the toe by MRI. Recommendation to the patient was fo r conservative amputation of just the fifth toe, and debridement of his wounds in the hope of preserv ation of the foot. The patient is conflicted and just "wants his entire foot gone," but this did not feel to be a reasonable treatment option at this point in time, and he consented and agreed to simple amputation of the fifth toe with a staged surgery and a repeat debridement within 72 hours. FINDINGS AT SURGERY: The patient's fifth toe had draining ulceration on the lateral and medial sides with purulence. There was tracking of purulence into the dorsal skin of the dorsal foot in line with the fourth toe, which represented a small pocket of abscess that did not track beyond about 1 cm into the tissue and very superficial. DESCRIPTION OF OPERATIVE PROCEDURE: The patient was taken to the operating room, given a spinal anest hetic, after which the patient's foot was sterilely prepped and draped in standard fashion. A racket- shaped incision was made around the base of the fifth toe, extending over the dorsum of the interspac e between the fourth and fifth toe, and through this incision dissection was taken directly down to b one and the MP joint of the fifth toe was entered and ligaments incised to allow freeing up of the di git and amputation. The plane incised was clean and did not have purulence, except the small dorsal p ocket of purulence adjacent to the fourth toe proximal to the web space. This area was debrided, cure tted, and was a very small pocket of purulence and with somewhat compromised thin overlying skin. Joon ssings were placed after flushing the wound, and a small drain and tacking stitches of 4-0 nylon were applied to keep some opposition of tissues. A dressing was applied and the patient was taken to [facility] very room in stable condition. ESTIMATED BLOOD LOSS: Minimal. COMPLICATIONS: None. SPONGE AND NEEDLE COUNTS: Correct. JOB #: [id number] EXT JOB #:[id number]
--- NOTE | 2017-05-04 12:42 | PROVIDER PROGRESS NOTE ---
Subjective - Prog Note Date Prog Note Date: 05/04/17 - Subjective Pt reports feeling: Improved Subjective: patient state he is feeling good. His foot pain is in the control. He state the surgeon will check his surgery dressing Objective - Vital Signs/Intake & Output Vital Signs: Vital Signs x48h Temp Pulse Resp BP Pulse Ox 05/04/17 07:26 36.8 C 57 L 16 147/83 H 98 05/04/17 04:55 36.5 C 59 L 16 145/75 H 98 Intake & Output: Intake & Output 05/01/17 05/02/17 05/03/17 05/04/17 23:59 23:59 23:59 23:59 Intake Total 3764 2451 1501 2693 Output Total 750 1200 3500 Balance 3764 1701 301 -807 - Objective General Appearance: positive: No acute distress, Alert Eyes Bilateral: positive: Normal inspection, PERRL, EOMI ENT: positive: ENT inspection nml, Pharynx nml, No signs of dehydration Neck: positive: Nml inspection, Thyroid nml, Trachea midline Respiratory: positive: Chest non-tender, No respiratory distress, Breath sounds nml Cardiovascular: positive: Regular rate & rhythm, No murmur, No gallop Peripheral Pulses: 2+ Radial (R), 2+ Radial (L), 2+ Dorsalis pedis (R), 2+ Dorsalis pedis (L) Abdomen: positive: Non-tender, Nml bowel sounds, No distention Back: positive: Nml inspection Skin: positive: Color nml, No rash, Warm, Dry, Other (the surgery site with a dressing on) Extremities: positive: Non-tender, Full ROM Neurologic/Psychiatric: positive: Oriented x3, Motor nml, Sensation nml, Mood/ affect nml - Lab Results Fish Bones: 05/06/17 05:19 05/06/17 05:19 Other Labs: Lab Results x24hrs 05/04/17 05/04/17 05/04/17 Range/Units 11:17 07:23 05:30 WBC (4.8-10.8) x10^3/uL RBC (4.70-6.10) 10^6/uL Hgb (14.0-18.0) g/dL Hct (42.0-52.0) % MCV (80.0-94.0) fL MCH (27.0-31.0) pg MCHC (32.0-36.0) g/dL RDW (12.0-15.0) % Plt Count (130-450) 10^3/uL MPV (7.4-11.4) fL Neut # (1.5-6.6) 10^3/uL Lymph # (1.5-3.5) 10^3/uL [place] # (0.0-1.0) 10^3/uL Eos # (0.0-0.7) 10^3/uL Baso # (0.0-0.1) 10^3/uL Absolute Nucleated RBC x10^3/uL Nucleated RBCs /100WBC Sodium 136 (135-145) mmol/L Potassium 4.3 (3.5-5.0) mmol/L Chloride 103 (101-111) mmol/L Carbon Dioxide 26 (21-32) mmol/L Anion Gap 7.0 (6-13) BUN 11 (6-20) mg/dL Creatinine 0.7 (0.6-1.2) mg/dL Estimated GFR (MDRD) 118 (>89) Glucose 250 H (70-100) mg/dL POC Whole Bld Glucose 247 H 250 H (70 - 100) mg/dL Calcium 8.3 L (8.5-10.3) mg/dL Total Bilirubin 0.4 (0.2-1.0) mg/dL AST 13 (10-42) IU/L ALT 16 (10-60) IU/L Alkaline Phosphatase 57 (42-121) IU/L Total Protein 5.9 L (6.7-8.2) g/dL Albumin 2.8 L (3.2-5.5) g/dL Globulin 3.1 (2.1-4.2) g/dL Albumin/Globulin Ratio 0.9 L (1.0-2.2) Last Dose Date Last Dose Time Vancomycin Trough (5.0-15.0) ug/mL 05/04/17 05/03/17 Range/Units 05:30 15:33 WBC 8.2 (4.8-10.8) x10^3/uL RBC 4.39 L (4.70-6.10) 10^6/uL Hgb 14.2 (14.0-18.0) g/dL Hct 42.5 (42.0-52.0) % MCV 96.7 H (80.0-94.0) fL MCH 32.4 H (27.0-31.0) pg MCHC 33.5 (32.0-36.0) g/dL RDW 12.6 (12.0-15.0) % Plt Count 231 (130-450) 10^3/uL MPV 8.7 (7.4-11.4) fL Neut # 5.4 (1.5-6.6) 10^3/uL Lymph # 1.3 L (1.5-3.5) 10^3/uL Bradley # 1.0 (0.0-1.0) 10^3/uL Eos # 0.4 (0.0-0.7) 10^3/uL Baso # 0.1 (0.0-0.1) 10^3/uL Absolute Nucleated RBC 0.00 x10^3/uL Nucleated RBCs 0.0 /100WBC Sodium (135-145) mmol/L Potassium (3.5-5.0) mmol/L Chloride (101-111) mmol/L Carbon Dioxide (21-32) mmol/L Anion Gap (6-13) BUN (6-20) mg/dL Creatinine (0.6-1.2) mg/dL Estimated GFR (MDRD) (>89) Glucose (70-100) mg/dL POC Whole Bld Glucose (70 - 100) mg/dL Calcium (8.5-10.3) mg/dL Total Bilirubin (0.2-1.0) mg/dL AST (10-42) IU/L ALT (10-60) IU/L Alkaline Phosphatase (42-121) IU/L Total Protein (6.7-8.2) g/dL Albumin (3.2-5.5) g/dL Globulin (2.1-4.2) g/dL Albumin/Globulin Ratio (1.0-2.2) Last Dose Date 05/03/17 Last Dose Time 0851 Vancomycin Trough 9.5 (5.0-15.0) ug/mL Assessment/Plan - Problem List (1) Diabetes Impression: his last sugar in the test is 247, his A1C is 10.2, it indicated patient has not been well controlled his blood sugar. All his home Lantus and Novolog are reconciliated. Add moderate slide scale on, will closely monitor and adjust insulin as needed (2) Diabetic foot infection Impression: patient had amputation of his left fifth toe on yesterday. his surgery dressing is intact today. his pain is in the well controlled. will follow up surgeon, dressing change and wound care. continue on antibiotics, and tightly sugar control, and pain control. (3) Diabetic neuropathy Impression: reconciliated patient home medication, patient state he is in well controlled for that. continue on home medication.
[2017-05-04] MEDS ORDERED: SODIUM CHLORIDE 0.9% 500 ML IV ONE (16:32)
[2017-05-04] MEDS ORDERED: VANCOMYCIN 1 GM VIAL ONE (16:32)
[2017-05-04] MEDS ORDERED: VANCOMYCIN 500 MG VIAL ONE (16:33)
[2017-05-04] MEDS: HYDROcod/ACETAM 5/325 MG TABLET PO PRN (16:48)
[2017-05-04] MEDS: INSULIN GLARGINE 300 UNIT/3 ML PEN SUBQ SCH (21:22)
[2017-05-05] MEDS ORDERED: SODIUM CHLORIDE 0.9% 500 ML IV ONE ×2 (00:41→08:42)
[2017-05-05] MEDS ORDERED: VANCOMYCIN 500 MG VIAL ONE ×2 (00:41→08:43)
[2017-05-05] MEDS ORDERED: VANCOMYCIN 1 GM VIAL ONE ×2 (00:41→08:42)
[2017-05-05] MEDS: VANCOMYCIN INJ 1 GM, VANCOMYCIN INJ 500 MG in SODIUM CHLORIDE 0.9% 500 ML IV SCH (01:08)
[2017-05-05] MEDS: SODIUM CHLORIDE FLUSH 0.9% 10 ML SYRINGE IVP PRN ×3 (01:25→05:09)
[2017-05-05] MEDS: MORPHINE 2 MG/ML SYRINGE IVP PRN ×3 (01:25→16:38)
[2017-05-05] MEDS: ZOLPIDEM 5 MG TABLET PO PRN (01:25)
[2017-05-05] MEDS: PIPERACILLIN/TAZOBACTAM 3.375 GM in SODIUM CHLORIDE 0.9% MINIBAG 100 ML IV SCH ×4 (05:09→21:59)
[2017-05-05 05:47] LABS: BASOPHILS # (AUTO) 0.1 10^3/uL (0.0-0.1); BASOPHILS % (AUTO) 1.2 %; EOSINOPHILS # (AUTO) 0.4 10^3/uL (0.0-0.7); EOSINOPHILS % (AUTO) 5.1 %; HCT - HEMATOCRIT 40.5 % (42.0-52.0); HGB - HEMOGLOBIN 13.6 g/dL (14.0-18.0); LYMPHOCYTES # (AUTO) 1.4 10^3/uL (1.5-3.5); LYMPHOCYTES % (AUTO) 16.5 %; MEAN CORPUSCULAR HEMOGLOBIN 32.4 pg (27.0-31.0); MEAN CORPUSCULAR HGB CONC 33.6 g/dL (32.0-36.0); MEAN CORPUSCULAR VOLUME 96.4 fL (80.0-94.0); MEAN PLATELET VOLUME 8.3 fL (7.4-11.4); MONOCYTES % (AUTO) 11.7 %; NEUTROPHILS # (AUTO) 5.7 10^3/uL (1.5-6.6); NEUTROPHILS % (AUTO) 65.5 %; RED CELL DISTRIBUTION WIDTH 12.6 % (12.0-15.0); UNCORRECTED WHITE BLOOD COUNT 8.7 x10^3/uL; WHITE BLOOD COUNT 8.7 x10^3/uL (4.8-10.8)
[2017-05-05 06:00] LABS: ALBUMIN/GLOBULIN RATIO 0.9 (1.0-2.2); BILIRUBIN,TOTAL 0.2 mg/dL (0.2-1.0); CALCIUM 8.5 mg/dL (8.5-10.3); CREATININE 0.8 mg/dL (0.6-1.2); POTASSIUM 4.1 mmol/L (3.5-5.0); TOTAL PROTEIN 6.1 g/dL (6.7-8.2)
[2017-05-05] MEDS: SODIUM CHLORIDE FLUSH 0.9% 10 ML SYRINGE IVP SCH ×3 (06:03→20:21)
[2017-05-05] MEDS ORDERED: INSULIN ASPART 300 UNIT/3 ML PEN SUBQ SCH (08:00)
--- NOTE | 2017-05-05 08:06 | PROVIDER PROGRESS NOTE ---
Subjective - General Admit Date: 04/30/17 Procedure Date: 05/03/17 Post Op Days: 2 Procedure Performed: amputation left 5th toe - Review of Systems Wound/Incisions: positive: Dressing dry and intact Musculoskeletal: positive: Foot pain Psychiatric: positive: No symptoms Objective - Patient Data Reviewed Vital Signs: Yes Intake & Output: Intake and Output Totals x24h 05/03/17 05/04/17 05/05/17 23:59 23:59 23:59 Intake Total 1501 5436 1915 Output Total 1200 3500 Balance 301 1936 1915 - Lab Results Lab Results: 05/05/17 05:19 05/05/17 05:19 Other Lab Results: Lab Results x24hrs 05/05/17 05/05/17 05/05/17 Range/Units 07:57 05:19 05:19 WBC 8.7 (4.8-10.8) x10^3/uL RBC 4.20 L (4.70-6.10) 10^6/uL Hgb 13.6 L (14.0-18.0) g/dL Hct 40.5 L (42.0-52.0) % MCV 96.4 H (80.0-94.0) fL MCH 32.4 H (27.0-31.0) pg MCHC 33.6 (32.0-36.0) g/dL RDW 12.6 (12.0-15.0) % Plt Count 257 (130-450) 10^3/uL MPV 8.3 (7.4-11.4) fL Neut # 5.7 (1.5-6.6) 10^3/uL Lymph # 1.4 L (1.5-3.5) 10^3/uL [place] # 1.0 (0.0-1.0) 10^3/uL Eos # 0.4 (0.0-0.7) 10^3/uL Baso # 0.1 (0.0-0.1) 10^3/uL Absolute Nucleated RBC 0.00 x10^3/uL Nucleated RBCs 0.0 /100WBC Sodium 134 L (135-145) mmol/L Potassium 4.1 (3.5-5.0) mmol/L Chloride 102 (101-111) mmol/L Carbon Dioxide 27 (21-32) mmol/L Anion Gap 5.0 L (6-13) BUN 12 (6-20) mg/dL Creatinine 0.8 (0.6-1.2) mg/dL Estimated GFR (MDRD) 101 (>89) Glucose 230 H (70-100) mg/dL POC Whole Bld Glucose 233 H (70 - 100) mg/dL Calcium 8.5 (8.5-10.3) mg/dL Total Bilirubin 0.2 (0.2-1.0) mg/dL AST 14 (10-42) IU/L ALT 20 (10-60) IU/L Alkaline Phosphatase 60 (42-121) IU/L Total Protein 6.1 L (6.7-8.2) g/dL Albumin 2.9 L (3.2-5.5) g/dL Globulin 3.2 (2.1-4.2) g/dL Albumin/Globulin Ratio 0.9 L (1.0-2.2) 05/04/17 05/04/17 Range/Units 20:19 11:17 WBC (4.8-10.8) x10^3/uL RBC (4.70-6.10) 10^6/uL Hgb (14.0-18.0) g/dL Hct (42.0-52.0) % MCV (80.0-94.0) fL MCH (27.0-31.0) pg MCHC (32.0-36.0) g/dL RDW (12.0-15.0) % Plt Count (130-450) 10^3/uL MPV (7.4-11.4) fL Neut # (1.5-6.6) 10^3/uL Lymph # (1.5-3.5) 10^3/uL [place] # (0.0-1.0) 10^3/uL Eos # (0.0-0.7) 10^3/uL Baso # (0.0-0.1) 10^3/uL Absolute Nucleated RBC x10^3/uL Nucleated RBCs /100WBC Sodium (135-145) mmol/L Potassium (3.5-5.0) mmol/L Chloride (101-111) mmol/L Carbon Dioxide (21-32) mmol/L Anion Gap (6-13) BUN (6-20) mg/dL Creatinine (0.6-1.2) mg/dL Estimated GFR (MDRD) (>89) Glucose (70-100) mg/dL POC Whole Bld Glucose 246 H 247 H (70 - 100) mg/dL Calcium (8.5-10.3) mg/dL Total Bilirubin (0.2-1.0) mg/dL AST (10-42) IU/L ALT (10-60) IU/L Alkaline Phosphatase (42-121) IU/L Total Protein (6.7-8.2) g/dL Albumin (3.2-5.5) g/dL Globulin (2.1-4.2) g/dL Albumin/Globulin Ratio (1.0-2.2) - Current Medications Current Medications: Current Medications Generic Name Dose Route Start Last Admin Trade Name Freq PRN Reason Stop Dose Admin Acetaminophen/Hydrocodone Bitart 1 tab 05/03/17 10:25 05/04/17 16:48 [place] 5/325 PO 1 tab Q4HR PRN Administration Pain 5 to 7 Enoxaparin Sodium 40 mg 05/04/17 09:00 05/04/17 08:48 Lovenox SUBQ 40 mg DAILY LILLIAN Administration Famotidine 20 mg 05/04/17 09:00 05/04/17 08:49 Pepcid PO 20 mg DAILY LILLIAN Administration Gabapentin 600 mg 05/03/17 14:00 05/04/17 08:49 Neurontin PO 600 mg DAILY LILLIAN Administration Gabapentin 300 mg 05/03/17 21:00 05/04/17 21:21 Neurontin PO 300 mg QPM LILLIAN Administration Acetaminophen 100 mls @ 400 mls/hr 05/03/17 10:22 05/03/17 10:35 Ofirmev IV 100 mls Q6HR PRN Administration PAIN Piperacillin Sod/Tazobactam 100 mls @ 200 mls/hr 05/03/17 11:00 05/05/17 05:09 Sod 3.375 gm/ Sodium Chloride IV 200 mls/hr Q6H LILLIAN Administration Vancomycin HCl 1 gm/ 500 mls @ 250 mls/hr 05/03/17 17:00 05/05/17 01:08 Vancomycin HCl 500 mg/ Sodium IV 250 mls/hr Chloride Q8H LILLIAN Administration Insulin Aspart 7 unit 05/03/17 17:00 05/04/17 16:45 Novolog SUBQ 7 unit TIDWM LILLIAN Administration Protocol Insulin Glargine 30 unit 05/03/17 21:00 05/04/17 21:22 Lantus Solostar SUBQ 30 unit QPM LILLIAN Administration Morphine Sulfate 2 mg 05/03/17 11:00 05/05/17 01:25 Morphine IVP 2 mg Q2HR PRN Administration PAIN Nicotine 1 patch 05/03/17 14:00 05/04/17 08:48 Nicoderm TOP 1 patch DAILY LILLIAN Administration Polyethylene Glycol 17 gm 05/04/17 09:00 05/04/17 08:49 Miralax PO Not Given DAILY LILLIAN Sodium Chloride 10 ml 05/03/17 10:22 05/05/17 05:09 Normal Saline Flush 0.9% IVP 10 ml PRN PRN Administration NEEDED PER PROVIDER ORDERS Sodium Chloride 10 ml 05/03/17 14:00 05/05/17 06:03 Normal Saline Flush 0.9% IVP 10 ml Q8HR LILLIAN Administration Zolpidem Tartrate 5 mg 05/03/17 10:25 05/05/17 01:25 Ambien PO 5 mg QPM PRN Administration Insomnia
--- NOTE | 2017-05-05 08:36 | Ultrasound Report ---
ANKLE BRACHIAL INDEX: 05/02/2017 CLINICAL INDICATION: Osteomyelitis, preop evaluation. TECHNIQUE: Real-time sonographic vascular imaging was performed by the pillar man through the extremities utilizing both color-flow and Doppler flow analysis. Multiple cash applications representative static images were saved for review. RIGHT SIDE SITE PSV WAVEFORM STEN QUALITY CONTROL TECH RAW MATERIALS 64 triphasic DPA 76 triphasic LEFT SIDE SITE PSV WAVEFORM STEN QUALITY CONTROL TECH RAW MATERIALS 88 triphasic DPA 144 monophasic TECHNIQUE: Real-time scanning was performed. SYSTOLIC PRESSURES RIGHT LEFT BRACHIAL ARTERY 153 139 POSTERIOR TIBIAL ARTERY 172/76 172/84 ANTERIOR TIBIAL ARTERY --- --- PERONEAL ARTERY --- --- ANKLE/ARM INDEX 1.12 1.24 FINDINGS: ABIs are normal, with the right measuring 1.12 and the left measuring 1.24. IMPRESSION: NORMAL ABIs. MTDD
[2017-05-05] MEDS: ENOXAPARIN 40 MG/0.4 ML SYRINGE SUBQ SCH (08:49)
[2017-05-05] MEDS: FAMOTIDINE 20 MG TABLET PO SCH (08:49)
[2017-05-05] MEDS: GABAPENTIN 300 MG CAPSULE PO SCH ×2 (08:49→20:18)
[2017-05-05] MEDS: NICOTINE 21 MG PATCH TOP SCH ×2 (08:50→18:26)
[2017-05-05] MEDS: POLYETHYLENE GLYCOL 3350 17 GM PACKET PO SCH (08:58)
[2017-05-05] MEDS: INSULIN ASPART 300 UNIT/3 ML PEN SUBQ SCH ×6 (08:59→20:21)
--- NOTE | 2017-05-05 10:47 | PROVIDER PROGRESS NOTE ---
Subjective - Prog Note Date Prog Note Date: 05/05/17 Prog Note Time: 10:43 - Subjective Pt reports feeling: Improved Subjective: patient state his pain is good controlled. Patient report he took snack after 2- 3 hour on every meal. His glucose is above 200 on his most glucose test. Patient decline to elevate his slide scale because patient state he had one episode of dangerous hypoglycemia Objective - Vital Signs/Intake & Output Vital Signs: Vital Signs x48h Temp Pulse Resp BP Pulse Ox 05/05/17 08:50 36.3 C L 62 16 161/85 H 97 Intake & Output: Intake & Output 05/02/17 05/03/17 05/04/17 05/05/17 23:59 23:59 23:59 23:59 Intake Total 2451 1501 5436 2415 Output Total 750 1200 3500 Balance 7291 758 5339 2415 - Objective General Appearance: positive: No acute distress, Alert Eyes Bilateral: positive: Normal inspection, PERRL ENT: positive: ENT inspection nml, Pharynx nml, No signs of dehydration Neck: positive: Nml inspection, Thyroid nml, Trachea midline Respiratory: positive: Chest non-tender, No respiratory distress, Breath sounds nml Cardiovascular: positive: Regular rate & rhythm, No murmur, No gallop Peripheral Pulses: 2+ Radial (R), 2+ Radial (L), 2+ Dorsalis pedis (R), 2+ Dorsalis pedis (L) Abdomen: positive: Non-tender, Nml bowel sounds, No distention Back: positive: Nml inspection Skin: positive: Color nml, Warm, Other (dressing on his left foot) Extremities: positive: Non-tender, Full ROM Neurologic/Psychiatric: positive: Oriented x3, Motor nml, Sensation nml, Mood/ affect nml - Lab Results Fish Bones: 05/06/17 05:19 05/06/17 05:19 Other Labs: Lab Results x24hrs 05/05/17 05/05/17 05/05/17 Range/Units 08:36 07:57 05:19 WBC (4.8-10.8) x10^3/uL RBC (4.70-6.10) 10^6/uL Hgb (14.0-18.0) g/dL Hct (42.0-52.0) % MCV (80.0-94.0) fL MCH (27.0-31.0) pg MCHC (32.0-36.0) g/dL RDW (12.0-15.0) % Plt Count (130-450) 10^3/uL MPV (7.4-11.4) fL Neut # (1.5-6.6) 10^3/uL Lymph # (1.5-3.5) 10^3/uL [place] # (0.0-1.0) 10^3/uL Eos # (0.0-0.7) 10^3/uL Baso # (0.0-0.1) 10^3/uL Absolute Nucleated RBC x10^3/uL Nucleated RBCs /100WBC Sodium 134 L (135-145) mmol/L Potassium 4.1 (3.5-5.0) mmol/L Chloride 102 (101-111) mmol/L Carbon Dioxide 27 (21-32) mmol/L Anion Gap 5.0 L (6-13) BUN 12 (6-20) mg/dL Creatinine 0.8 (0.6-1.2) mg/dL Estimated GFR (MDRD) 101 (>89) Glucose 230 H (70-100) mg/dL POC Whole Bld Glucose 233 H (70 - 100) mg/dL Calcium 8.5 (8.5-10.3) mg/dL Total Bilirubin 0.2 (0.2-1.0) mg/dL AST 14 (10-42) IU/L ALT 20 (10-60) IU/L Alkaline Phosphatase 60 (42-121) IU/L Total Protein 6.1 L (6.7-8.2) g/dL Albumin 2.9 L (3.2-5.5) g/dL Globulin 3.2 (2.1-4.2) g/dL Albumin/Globulin Ratio 0.9 L (1.0-2.2) Last Dose Date Last Dose Time 107 Vancomycin Trough 20.7 H (5.0-15.0) ug/mL 05/05/17 05/04/17 05/04/17 Range/Units 05:19 20:19 11:17 WBC 8.7 (4.8-10.8) x10^3/uL RBC 4.20 L (4.70-6.10) 10^6/uL Hgb 13.6 L (14.0-18.0) g/dL Hct 40.5 L (42.0-52.0) % MCV 96.4 H (80.0-94.0) fL MCH 32.4 H (27.0-31.0) pg MCHC 33.6 (32.0-36.0) g/dL RDW 12.6 (12.0-15.0) % Plt Count 257 (130-450) 10^3/uL MPV 8.3 (7.4-11.4) fL Neut # 5.7 (1.5-6.6) 10^3/uL Lymph # 1.4 L (1.5-3.5) 10^3/uL [place] # 1.0 (0.0-1.0) 10^3/uL Eos # 0.4 (0.0-0.7) 10^3/uL Baso # 0.1 (0.0-0.1) 10^3/uL Absolute Nucleated RBC 0.00 x10^3/uL Nucleated RBCs 0.0 /100WBC Sodium (135-145) mmol/L Potassium (3.5-5.0) mmol/L Chloride (101-111) mmol/L Carbon Dioxide (21-32) mmol/L Anion Gap (6-13) BUN (6-20) mg/dL Creatinine (0.6-1.2) mg/dL Estimated GFR (MDRD) (>89) Glucose (70-100) mg/dL POC Whole Bld Glucose 246 H 247 H (70 - 100) mg/dL Calcium (8.5-10.3) mg/dL Total Bilirubin (0.2-1.0) mg/dL AST (10-42) IU/L ALT (10-60) IU/L Alkaline Phosphatase (42-121) IU/L Total Protein (6.7-8.2) g/dL Albumin (3.2-5.5) g/dL Globulin (2.1-4.2) g/dL Albumin/Globulin Ratio (1.0-2.2) Last Dose Date Last Dose Time Vancomycin Trough (5.0-15.0) ug/mL Assessment/Plan - Problem List (1) Diabetes Impression: patient's glucose is slight high, patient decline to elevate his slide scale, advise patient to control his glucose intake, continue current management. (2) Diabetic foot infection Impression: dressing is intact, patient state the surgeon will see him, follow surgeon, continue current treatment (3) Diabetic neuropathy Impression: stable, patient did not have any complaints, remain the current management.
[2017-05-05] MEDS: VANCOMYCIN INJ 1 GM in SODIUM CHLORIDE 0.9% 250 ML IV SCH ×2 (14:44→20:07)
[2017-05-05] MEDS: HYDROcod/ACETAM 5/325 MG TABLET PO PRN (18:38)
[2017-05-05] MEDS: INSULIN GLARGINE 300 UNIT/3 ML PEN SUBQ SCH (20:21)
[2017-05-06] MEDS: MORPHINE 2 MG/ML SYRINGE IVP PRN (00:33)
[2017-05-06] MEDS: VANCOMYCIN INJ 1 GM in SODIUM CHLORIDE 0.9% 250 ML IV SCH ×3 (04:38→19:15)
[2017-05-06 06:02] LABS: BASOPHILS # (AUTO) 0.1 10^3/uL (0.0-0.1); BASOPHILS % (AUTO) 1.7 %; EOSINOPHILS # (AUTO) 0.4 10^3/uL (0.0-0.7); EOSINOPHILS % (AUTO) 5.5 %; HCT - HEMATOCRIT 43.4 % (42.0-52.0); HGB - HEMOGLOBIN 14.6 g/dL (14.0-18.0); LYMPHOCYTES # (AUTO) 1.6 10^3/uL (1.5-3.5); LYMPHOCYTES % (AUTO) 20.8 %; MEAN CORPUSCULAR HEMOGLOBIN 32.7 pg (27.0-31.0); MEAN CORPUSCULAR HGB CONC 33.7 g/dL (32.0-36.0); MEAN CORPUSCULAR VOLUME 96.8 fL (80.0-94.0); MEAN PLATELET VOLUME 8.2 fL (7.4-11.4); MONOCYTES # (AUTO) 0.9 10^3/uL (0.0-1.0); MONOCYTES % (AUTO) 12.1 %; NEUTROPHILS # (AUTO) 4.5 10^3/uL (1.5-6.6); NEUTROPHILS % (AUTO) 59.9 %; RED BLOOD COUNT 4.48 10^6/uL (4.70-6.10); RED CELL DISTRIBUTION WIDTH 12.4 % (12.0-15.0); UNCORRECTED WHITE BLOOD COUNT 7.5 x10^3/uL; WHITE BLOOD COUNT 7.5 x10^3/uL (4.8-10.8)
[2017-05-06] MEDS: PIPERACILLIN/TAZOBACTAM 3.375 GM in SODIUM CHLORIDE 0.9% MINIBAG 100 ML IV SCH ×4 (06:06→21:12)
[2017-05-06] MEDS: SODIUM CHLORIDE FLUSH 0.9% 10 ML SYRINGE IVP SCH ×3 (06:07→20:05)
[2017-05-06 06:18] LABS: ALBUMIN/GLOBULIN RATIO 0.9 (1.0-2.2); BILIRUBIN,TOTAL 0.4 mg/dL (0.2-1.0); CALCIUM 8.6 mg/dL (8.5-10.3); CREATININE 0.7 mg/dL (0.6-1.2); POTASSIUM 3.8 mmol/L (3.5-5.0); TOTAL PROTEIN 6.4 g/dL (6.7-8.2)
--- NOTE | 2017-05-06 07:33 | PROVIDER PROGRESS NOTE ---
Subjective - General Admit Date: 04/30/17 Procedure Date: 05/03/17 Post Op Days: 3 Procedure Performed: amputation left 5th toe - Review of Systems Wound/Incisions: positive: Drainage General: positive: No symptoms Gastrointestinal: positive: No symptoms Musculoskeletal: positive: Foot pain, Joint pain Psychiatric: positive: No symptoms Objective - Patient Data Reviewed Vital Signs: Yes Vital Signs: Vital Signs x48h Temp Pulse Resp BP Pulse Ox 05/06/17 02:42 36.5 C 58 L 16 148/77 H 99 Intake & Output: Intake and Output Totals x24h 05/04/17 05/05/17 05/06/17 23:59 23:59 23:59 Intake Total 5436 3451 810 Output Total 3500 1 Balance 1936 3450 810 - Lab Results Lab Results: 05/06/17 05:19 05/06/17 05:19 Other Lab Results: Lab Results x24hrs 05/06/17 05/06/17 05/05/17 Range/Units 05:19 05:19 08:36 WBC 7.5 (4.8-10.8) x10^3/uL RBC 4.48 L (4.70-6.10) 10^6/uL Hgb 14.6 (14.0-18.0) g/dL Hct 43.4 (42.0-52.0) % MCV 96.8 H (80.0-94.0) fL MCH 32.7 H (27.0-31.0) pg MCHC 33.7 (32.0-36.0) g/dL RDW 12.4 (12.0-15.0) % Plt Count 262 (130-450) 10^3/uL MPV 8.2 (7.4-11.4) fL Neut # 4.5 (1.5-6.6) 10^3/uL Lymph # 1.6 (1.5-3.5) 10^3/uL [place] # 0.9 (0.0-1.0) 10^3/uL Eos # 0.4 (0.0-0.7) 10^3/uL Baso # 0.1 (0.0-0.1) 10^3/uL Absolute Nucleated RBC 0.00 x10^3/uL Nucleated RBCs 0.0 /100WBC Sodium 138 (135-145) mmol/L Potassium 3.8 (3.5-5.0) mmol/L Chloride 103 (101-111) mmol/L Carbon Dioxide 28 (21-32) mmol/L Anion Gap 7.0 (6-13) BUN 14 (6-20) mg/dL Creatinine 0.7 (0.6-1.2) mg/dL Estimated GFR (MDRD) 118 (>89) Glucose 75 (70-100) mg/dL POC Whole Bld Glucose (70 - 100) mg/dL Calcium 8.6 (8.5-10.3) mg/dL Total Bilirubin 0.4 (0.2-1.0) mg/dL AST 15 (10-42) IU/L ALT 21 (10-60) IU/L Alkaline Phosphatase 50 (42-121) IU/L Total Protein 6.4 L (6.7-8.2) g/dL Albumin 3.0 L (3.2-5.5) g/dL Globulin 3.4 (2.1-4.2) g/dL Albumin/Globulin Ratio 0.9 L (1.0-2.2) Last Dose Date [id number] Last Dose Time 0108 Vancomycin Trough 20.7 H (5.0-15.0) ug/mL 05/05/17 Range/Units 07:57 WBC (4.8-10.8) x10^3/uL RBC (4.70-6.10) 10^6/uL Hgb (14.0-18.0) g/dL Hct (42.0-52.0) % MCV (80.0-94.0) fL MCH (27.0-31.0) pg MCHC (32.0-36.0) g/dL RDW (12.0-15.0) % Plt Count (130-450) 10^3/uL MPV (7.4-11.4) fL Neut # (1.5-6.6) 10^3/uL Lymph # (1.5-3.5) 10^3/uL [place] # (0.0-1.0) 10^3/uL Eos # (0.0-0.7) 10^3/uL Baso # (0.0-0.1) 10^3/uL Absolute Nucleated RBC x10^3/uL Nucleated RBCs /100WBC Sodium (135-145) mmol/L Potassium (3.5-5.0) mmol/L Chloride (101-111) mmol/L Carbon Dioxide (21-32) mmol/L Anion Gap (6-13) BUN (6-20) mg/dL Creatinine (0.6-1.2) mg/dL Estimated GFR (MDRD) (>89) Glucose (70-100) mg/dL POC Whole Bld Glucose 233 H (70 - 100) mg/dL Calcium (8.5-10.3) mg/dL Total Bilirubin (0.2-1.0) mg/dL AST (10-42) IU/L ALT (10-60) IU/L Alkaline Phosphatase (42-121) IU/L Total Protein (6.7-8.2) g/dL Albumin (3.2-5.5) g/dL Globulin (2.1-4.2) g/dL Albumin/Globulin Ratio (1.0-2.2) Last Dose Date Last Dose Time Vancomycin Trough (5.0-15.0) ug/mL - Current Medications Current Medications: Current Medications Generic Name Dose Route Start Last Admin Trade Name Freq PRN Reason Stop Dose Admin Acetaminophen/Hydrocodone Bitart 1 tab 05/03/17 10:25 05/05/17 18:38 [place] 5/325 PO 1 tab Q4HR PRN Administration Pain 5 to 7 Enoxaparin Sodium 40 mg 05/04/17 09:00 05/05/17 08:49 Lovenox SUBQ 40 mg DAILY LILLIAN Administration Famotidine 20 mg 05/04/17 09:00 05/05/17 08:49 Pepcid PO Not Given DAILY LILLIAN Gabapentin 600 mg 05/03/17 14:00 05/05/17 08:49 Neurontin PO 600 mg DAILY LILLIAN Administration Gabapentin 300 mg 05/03/17 21:00 05/05/17 20:18 Neurontin PO 300 mg QPM LILLIAN Administration Acetaminophen 100 mls @ 400 mls/hr 05/03/17 10:22 05/03/17 10:35 Ofirmev IV 100 mls Q6HR PRN Administration PAIN Piperacillin Sod/Tazobactam 100 mls @ 200 mls/hr 05/03/17 11:00 05/06/17 06:06 Sod 3.375 gm/ Sodium Chloride IV 200 mls/hr Q6H LILLIAN Administration Vancomycin HCl 1 gm/ Sodium 250 mls @ 250 mls/hr 05/05/17 12:00 05/06/17 04:38 Chloride IV 250 mls/hr Q8H LILLIAN Administration Insulin Aspart 7 unit 05/03/17 17:00 05/05/17 16:45 Novolog SUBQ 7 unit TIDWM LILLIAN Administration Protocol Insulin Aspart 1 - 9 unit 05/05/17 12:00 05/05/17 20:21 Novolog SUBQ 3 unit 0800,1200,1700,2100 LILLIAN Administration Protocol Insulin Glargine 30 unit 05/03/17 21:00 05/05/17 20:21 Lantus Solostar SUBQ 30 unit QPM LILLIAN Administration Morphine Sulfate 2 mg 05/03/17 11:00 05/06/17 00:33 Morphine IVP 2 mg Q2HR PRN Administration PAIN Nicotine 1 patch 05/03/17 14:00 05/05/17 18:26 Nicoderm TOP 1 patch DAILY LILLIAN Administration Polyethylene Glycol 17 gm 05/04/17 09:00 05/05/17 08:58 Miralax PO Not Given DAILY LILLIAN Sodium Chloride 10 ml 05/03/17 10:22 05/05/17 05:09 Normal Saline Flush 0.9% IVP 10 ml PRN PRN Administration NEEDED PER PROVIDER ORDERS Sodium Chloride 10 ml 05/03/17 14:00 05/06/17 06:07 Normal Saline Flush 0.9% IVP Not Given Q8HR LILLIAN Zolpidem Tartrate 5 mg 05/03/17 10:25 05/05/17 01:25 Ambien PO 5 mg QPM PRN Administration Insomnia - Physical Exam Wound/Incisions: positive: Drainage General Appearance: positive: No acute distress Extremities: positive: Joint swelling Neurologic/Psychiatric: positive: Motor nml, Mood/affect nml Impression/Plan - Problem List Problem List: POD #3 The patient has a clean appearing wound cavity and will continue with dressing changes and wound care management. Preparations to be made for possible D/C in the next day or two. It may be necessary for use of prolonged Antibiotics as the duration of healing could easily extend to one month or more.
[2017-05-06] MEDS: FAMOTIDINE 20 MG TABLET PO SCH (09:19)
[2017-05-06] MEDS: POLYETHYLENE GLYCOL 3350 17 GM PACKET PO SCH (09:19)
[2017-05-06] MEDS: ENOXAPARIN 40 MG/0.4 ML SYRINGE SUBQ SCH (09:28)
[2017-05-06] MEDS: GABAPENTIN 300 MG CAPSULE PO SCH ×2 (09:28→20:02)
[2017-05-06] MEDS: INSULIN ASPART 300 UNIT/3 ML PEN SUBQ SCH ×7 (09:36→20:05)
[2017-05-06] MEDS: NICOTINE 21 MG PATCH TOP SCH (09:39)
--- NOTE | 2017-05-06 11:26 | PROVIDER PROGRESS NOTE ---
Assessment/Plan - Problem List (1) Osteomyelitis of toe of left foot Assessment/Plan: acute. continue on vancomycin with trough. continue on pain management as planned. surgery on consult following. will transition to oral in the next day or two for antibiotics (2) Uncontrolled diabetes mellitus type 2 with peripheral artery disease Assessment/Plan: chronic. hemoglobin A1C ordered. patient has severe PVD with neuropathy and should have counseling regarding blood sugar levels. He is on diabetic diet with accuchecks ACHS. continue with sliding scale insulin. continue with snacks and checking blood glucose with meals. (3) Cellulitis in diabetic foot Assessment/Plan: chronic. continue on antibiotic Vancomycin as planned with trough. monitor WBC daily labs - Current Meds Current Meds: Current Medications Generic Name Dose Route Start Last Admin Trade Name Freq PRN Reason Stop Dose Admin Acetaminophen/Hydrocodone Bitart 1 tab 05/03/17 10:25 05/05/17 18:38 [place] 5/325 PO 1 tab Q4HR PRN Administration Pain 5 to 7 Enoxaparin Sodium 40 mg 05/04/17 09:00 05/06/17 09:28 Lovenox SUBQ 40 mg DAILY LILLIAN Administration Famotidine 20 mg 05/04/17 09:00 05/06/17 09:19 Pepcid PO Not Given DAILY LILLIAN Gabapentin 600 mg 05/03/17 14:00 05/06/17 09:28 Neurontin PO 600 mg DAILY LILLIAN Administration Gabapentin 300 mg 05/03/17 21:00 05/05/17 20:18 Neurontin PO 300 mg QPM LILLIAN Administration Acetaminophen 100 mls @ 400 mls/hr 05/03/17 10:22 05/03/17 10:35 Ofirmev IV 100 mls Q6HR PRN Administration PAIN Piperacillin Sod/Tazobactam 100 mls @ 200 mls/hr 05/03/17 11:00 05/06/17 06:06 Sod 3.375 gm/ Sodium Chloride IV 200 mls/hr Q6H LILLIAN Administration Vancomycin HCl 1 gm/ Sodium 250 mls @ 250 mls/hr 05/05/17 12:00 05/06/17 04:38 Chloride IV 250 mls/hr Q8H LILLIAN Administration Insulin Aspart 7 unit 05/03/17 17:00 05/06/17 09:36 Novolog SUBQ 7 unit TIDWM LILLIAN Administration Protocol Insulin Aspart 1 - 9 unit 05/05/17 12:00 05/06/17 09:37 Novolog SUBQ 3 unit 0800,1200,1700,2100 LILLIAN Administration Protocol Insulin Glargine 30 unit 05/03/17 21:00 05/05/17 20:21 Lantus Solostar SUBQ 30 unit QPM LILLIAN Administration Morphine Sulfate 2 mg 05/03/17 11:00 05/06/17 00:33 Morphine IVP 2 mg Q2HR PRN Administration PAIN Nicotine 1 patch 05/03/17 14:00 05/06/17 09:39 Nicoderm TOP 1 patch DAILY LILLIAN Administration Polyethylene Glycol 17 gm 05/04/17 09:00 05/06/17 09:19 Miralax PO Not Given DAILY LILLIAN Sodium Chloride 10 ml 05/03/17 10:22 05/05/17 05:09 Normal Saline Flush 0.9% IVP 10 ml PRN PRN Administration NEEDED PER PROVIDER ORDERS Sodium Chloride 10 ml 05/03/17 14:00 05/06/17 06:07 Normal Saline Flush 0.9% IVP Not Given Q8HR LILLIAN Zolpidem Tartrate 5 mg 05/03/17 10:25 05/05/17 01:25 Ambien PO 5 mg QPM PRN Administration Insomnia - Lab Result Lab results reviewed: Yes Fish Bone Diagrams: 05/06/17 05:19 05/06/17 05:19 Other Lab Results: Abnormal Lab Results 05/01/17 05/01/17 05/01/17 07:29 10:05 16:34 RBC Hgb Hct MCV MCH Lymph # Sodium Anion Gap Glucose POC Whole Bld Glucose 236 mg/dL H mg/dL 335 mg/dL H mg/dL 254 mg/dL H mg/dL (70 - 100) (70 - 100) (70 - 100) Glycated Hemoglobin Estim Average Glucose Total Protein Albumin Albumin/Globulin Ratio Vancomycin Trough 05/01/17 05/03/17 05/03/17 20:55 20:25 21:38 RBC Hgb Hct MCV MCH Lymph # Sodium Anion Gap Glucose POC Whole Bld Glucose 216 mg/dL H mg/dL 295 mg/dL H mg/dL 242 mg/dL H mg/dL (70 - 100) (70 - 100) (70 - 100) Glycated Hemoglobin Estim Average Glucose Total Protein Albumin Albumin/Globulin Ratio Vancomycin Trough 05/04/17 05/05/17 05/05/17 20:19 05:19 05:19 RBC 4.20 10^6/uL L 10^6/uL (4.70-6.10) Hgb 13.6 g/dL L g/dL (14.0-18.0) Hct 40.5 % L % (42.0-52.0) MCV 96.4 fL H fL (80.0-94.0) MCH 32.4 pg H pg (27.0-31.0) Lymph # 1.4 10^3/uL L 10^3/uL (1.5-3.5) Sodium 134 mmol/L L mmol/L (135-145) Anion Gap 5.0 L (6-13) Glucose 230 mg/dL H mg/dL (70-100) POC Whole Bld Glucose 246 mg/dL H mg/dL (70 - 100) Glycated Hemoglobin Estim Average Glucose Total Protein 6.1 g/dL L g/dL (6.7-8.2) Albumin 2.9 g/dL L g/dL (3.2-5.5) Albumin/Globulin Ratio 0.9 L (1.0-2.2) Vancomycin Trough 05/05/17 05/05/17 05/06/17 07:57 08:36 05:19 RBC 4.48 10^6/uL L 10^6/uL (4.70-6.10) Hgb Hct MCV 96.8 fL H fL (80.0-94.0) MCH 32.7 pg H pg (27.0-31.0) Lymph # Sodium Anion Gap Glucose POC Whole Bld Glucose 233 mg/dL H mg/dL (70 - 100) Glycated Hemoglobin Estim Average Glucose Total Protein Albumin Albumin/Globulin Ratio Vancomycin Trough 20.7 ug/mL H ug/mL (5.0-15.0) 05/06/17 05/06/17 05/06/17 05:19 11:24 13:00 RBC Hgb Hct MCV MCH Lymph # Sodium Anion Gap Glucose POC Whole Bld Glucose Glycated Hemoglobin 10.4 % H % (4.6-6.2) Estim Average Glucose 252 H (70-100) Total Protein 6.4 g/dL L g/dL (6.7-8.2) Albumin 3.0 g/dL L g/dL (3.2-5.5) Albumin/Globulin Ratio 0.9 L (1.0-2.2) Vancomycin Trough 17.9 ug/mL H ug/mL (5.0-15.0) - EKG Results EKG Interpreted Independently: No - Additional Planning Condition/Complexity: Improved Consult/Specialty: OT, PT, Surgery Plan Discussed with:: Case Management Time Spent: 31-60 minutes Additional Planning Notes: plan for patient to be discharged home in 24-48 hours pending surgery sign off and antibiotic continuation. Subjective - Subjective Patient Reports: Resting Comfortably, Other (patient still has pain in his left big foot and toes. will continue with pain meds.) Nursing Reports: Pain (to foot and toes. up walking around hallways on unit) Objective Vital Signs: Vital Signs - 24 hr 05/05/17 05/06/17 18:29 02:42 Temperature 36.6 C 36.5 C Heart Rate [ 61 58 L Brachial] Respiratory 16 16 Rate Blood Pressure 144/79 H 148/77 H [Right Brachial artery] O2 Saturation 100 99 Oxygen O2 Source Room air I&O (Last 24 Hrs): Intake and Output Totals x24h 05/04/17 05/05/17 05/06/17 23:59 23:59 23:59 Intake Total 5436 3451 1290 Output Total 3500 1 Balance 1936 3450 1290 General: Alert, Oriented x3, Cooperative, No acute distress HEENT: PERRLA Neck: Supple, No JVD Lymphatic: no adenopathy Neuro: Alert, CN 2-12 Grossly Intact, Oriented Times 3 Cardiovascular: Regular rate, Normal S1, Normal S2, No murmurs Respiratory: Chest non-tender, No respiratory distress, Breath sounds nml Abdomen: Normal bowel sounds, Soft, No tenderness Extremities: No clubbing, No cyanosis, No edema, Normal pulses, No tenderness/ swelling, Other (pain to left foot with warm dry dressing) Skin: No rashes, No breakdown, No significant lesion - Results Results: Laboratory Results WBC 7.5 x10^3/uL (4.8-10.8) 05/06/17 05:19 RBC 4.48 10^6/uL (4.70-6.10) L 05/06/17 05:19 Hgb 14.6 g/dL (14.0-18.0) 05/06/17 05:19 Hct 43.4 % (42.0-52.0) 05/06/17 05:19 MCV 96.8 fL (80.0-94.0) H 05/06/17 05:19 MCH 32.7 pg (27.0-31.0) H 05/06/17 05:19 MCHC 33.7 g/dL (32.0-36.0) 05/06/17 05:19 RDW 12.4 % (12.0-15.0) 05/06/17 05:19 Plt Count 262 10^3/uL (130-450) 05/06/17 05:19 MPV 8.2 fL (7.4-11.4) 05/06/17 05:19 Neut # 4.5 10^3/uL (1.5-6.6) 05/06/17 05:19 Lymph # 1.6 10^3/uL (1.5-3.5) 05/06/17 05:19 [place] # 0.9 10^3/uL (0.0-1.0) 05/06/17 05:19 Eos # 0.4 10^3/uL (0.0-0.7) 05/06/17 05:19 Baso # 0.1 10^3/uL (0.0-0.1) 05/06/17 05:19 Absolute Nucleated RBC 0.00 x10^3/uL 05/06/17 05:19 Nucleated RBCs 0.0 /100WBC 05/06/17 05:19 ESR 28 mm/Hr (0-20) H 04/30/17 16:33 Sodium 138 mmol/L (135-145) 05/06/17 05:19 Potassium 3.8 mmol/L (3.5-5.0) 05/06/17 05:19 Chloride 103 mmol/L (101-111) 05/06/17 05:19 Carbon Dioxide 28 mmol/L (21-32) 05/06/17 05:19 Anion Gap 7.0 (6-13) 05/06/17 05:19 BUN 14 mg/dL (6-20) 05/06/17 05:19 Creatinine 0.7 mg/dL (0.6-1.2) 05/06/17 05:19 Estimated GFR (MDRD) 118 (>89) 05/06/17 05:19 Glucose 75 mg/dL (70-100) 05/06/17 05:19 POC Whole Bld Glucose 233 mg/dL (70 - 100) H 05/05/17 07:57 Glycated Hemoglobin 10.2 % (4.6-6.2) H 05/02/17 05:09 Hemoglobin A1c Cancelled 04/30/17 16:33 Estim Average Glucose 246 (70-100) H 05/02/17 05:09 Calcium 8.6 mg/dL (8.5-10.3) 05/06/17 05:19 Magnesium 1.9 mg/dL (1.7-2.8) 05/02/17 05:09 Total Bilirubin 0.4 mg/dL (0.2-1.0) 05/06/17 05:19 AST 15 IU/L (10-42) 05/06/17 05:19 ALT 21 IU/L (10-60) 05/06/17 05:19 Alkaline Phosphatase 50 IU/L (42-121) 05/06/17 05:19 C-Reactive Protein 14.3 mg/dL (0-1.0) H 04/30/17 16:33 Total Protein 6.4 g/dL (6.7-8.2) L 05/06/17 05:19 Albumin 3.0 g/dL (3.2-5.5) L 05/06/17 05:19 Globulin 3.4 g/dL (2.1-4.2) 05/06/17 05:19 Albumin/Globulin Ratio 0.9 (1.0-2.2) L 05/06/17 05:19 Last Dose Date [id number] 05/05/17 08:36 Last Dose Time 10705/05/17 08:36 Vancomycin Trough 20.7 ug/mL (5.0-15.0) H 05/05/17 08:36 - Procedures Procedures: Procedures DETACHMENT AT LEFT 2ND TOE, COMPLETE, OPEN APPROACH (03/11/16) DETACHMENT AT RIGHT 1ST TOE, HIGH, OPEN APPROACH (10/20/16) EXCIS DEBRIDE OF WOUND, INFECT, OR BURN (02/19/15) VENOUS CATHETERIZATION NEC (02/19/15)
[2017-05-06 13:22] LABS: HEMOGLOBIN A1C 1.42 g/dL
[2017-05-06] MEDS: HYDROcod/ACETAM 5/325 MG TABLET PO PRN (20:02)
[2017-05-06] MEDS: INSULIN GLARGINE 300 UNIT/3 ML PEN SUBQ SCH (20:05)
[2017-05-06] MEDS ORDERED: INSULIN ASPART 300 UNIT/3 ML PEN SUBQ SCH (21:05)
[2017-05-06] MEDS: ZOLPIDEM 5 MG TABLET PO PRN (23:48)
[2017-05-07] MEDS: VANCOMYCIN INJ 1 GM in SODIUM CHLORIDE 0.9% 250 ML IV SCH ×2 (03:38→11:40)
[2017-05-07] MEDS: SODIUM CHLORIDE FLUSH 0.9% 10 ML SYRINGE IVP PRN (03:39)
[2017-05-07 05:56] LABS: BASOPHILS # (AUTO) 0.1 10^3/uL (0.0-0.1); BASOPHILS % (AUTO) 1.2 %; EOSINOPHILS # (AUTO) 0.5 10^3/uL (0.0-0.7); EOSINOPHILS % (AUTO) 5.5 %; HCT - HEMATOCRIT 43.3 % (42.0-52.0); HGB - HEMOGLOBIN 14.8 g/dL (14.0-18.0); LYMPHOCYTES # (AUTO) 1.5 10^3/uL (1.5-3.5); MEAN CORPUSCULAR HEMOGLOBIN 32.8 pg (27.0-31.0); MEAN CORPUSCULAR HGB CONC 34.2 g/dL (32.0-36.0); MONOCYTES # (AUTO) 0.9 10^3/uL (0.0-1.0); MONOCYTES % (AUTO) 10.5 %; NEUTROPHILS # (AUTO) 5.8 10^3/uL (1.5-6.6); NEUTROPHILS % (AUTO) 65.8 %; NUCLEATED RED BLOOD CELLS AUTO 0.1 /100WBC; RED BLOOD COUNT 4.52 10^6/uL (4.70-6.10); RED CELL DISTRIBUTION WIDTH 12.3 % (12.0-15.0); UNCORRECTED WHITE BLOOD COUNT 8.8 x10^3/uL; WHITE BLOOD COUNT 8.8 x10^3/uL (4.8-10.8)
[2017-05-07] MEDS: PIPERACILLIN/TAZOBACTAM 3.375 GM in SODIUM CHLORIDE 0.9% MINIBAG 100 ML IV SCH ×3 (06:00→17:34)
[2017-05-07] MEDS: SODIUM CHLORIDE FLUSH 0.9% 10 ML SYRINGE IVP SCH ×3 (06:00→21:13)
[2017-05-07 06:05] LABS: CALCIUM 8.9 mg/dL (8.5-10.3); CREATININE 0.8 mg/dL (0.6-1.2); POTASSIUM 4.2 mmol/L (3.5-5.0)
[2017-05-07] MEDS: MORPHINE 2 MG/ML SYRINGE IVP PRN ×2 (06:19→17:07)
[2017-05-07] MEDS: FAMOTIDINE 20 MG TABLET PO SCH (08:11)
[2017-05-07] MEDS: ENOXAPARIN 40 MG/0.4 ML SYRINGE SUBQ SCH (08:11)
[2017-05-07] MEDS: GABAPENTIN 300 MG CAPSULE PO SCH ×2 (08:11→21:13)
[2017-05-07] MEDS: POLYETHYLENE GLYCOL 3350 17 GM PACKET PO SCH (08:11)
--- NOTE | 2017-05-07 08:43 | PROVIDER PROGRESS NOTE ---
Assessment/Plan - Problem List (1) Osteomyelitis of toe of left foot Assessment/Plan: improving. continue with wound care and assist with ambulation. surgery ortho following. continue on antibiotics with transition to Zyvox today and to order outpatient at discharge (2) Uncontrolled diabetes mellitus type 2 with peripheral artery disease Assessment/Plan: chronic and stable. patient hemoglobin A1c was 10.6 and is still havin elevated blood glucose. he insists on having snacks with no coverage. he will need continuous support outpatient for management. continue with sliding scale insulin and carb diet (3) Cellulitis in diabetic foot Assessment/Plan: stable. continue with antibiotics at discharge. Zyvox 600mg BID (4) Nicotine addiction Qualifiers: Nicotine product type: cigarettes Substance use status: uncomplicated Qualified Code(s): F17.210 - Nicotine dependence, cigarettes, uncomplicated Assessment/Plan: continue with counseling and education for cessation - Current Meds Current Meds: Current Medications Generic Name Dose Route Start Last Admin Trade Name Freq PRN Reason Stop Dose Admin Acetaminophen/Hydrocodone Bitart 1 tab 05/03/17 10:25 05/06/17 20:02 [place] 5/325 PO 1 tab Q4HR PRN Administration Pain 5 to 7 Enoxaparin Sodium 40 mg 05/04/17 09:00 05/07/17 08:11 Lovenox SUBQ 40 mg DAILY LILLIAN Administration Famotidine 20 mg 05/04/17 09:00 05/07/17 08:11 Pepcid PO Not Given DAILY LILLIAN Gabapentin 600 mg 05/03/17 14:00 05/07/17 08:11 Neurontin PO 600 mg DAILY LILLIAN Administration Gabapentin 300 mg 05/03/17 21:00 05/06/17 20:02 Neurontin PO 300 mg QPM LILLIAN Administration Acetaminophen 100 mls @ 400 mls/hr 05/03/17 10:22 05/03/17 10:35 Ofirmev IV 100 mls Q6HR PRN Administration PAIN Piperacillin Sod/Tazobactam 100 mls @ 200 mls/hr 05/03/17 11:00 05/07/17 06:00 Sod 3.375 gm/ Sodium Chloride IV 200 mls/hr Q6H LILLIAN Administration Vancomycin HCl 1 gm/ Sodium 250 mls @ 250 mls/hr 05/05/17 12:00 05/07/17 03:38 Chloride IV 250 mls/hr Q8H LILLIAN Administration Insulin Aspart 7 unit 05/03/17 17:00 05/06/17 16:45 Novolog SUBQ 7 unit TIDWM LILLIAN Administration Protocol Insulin Glargine 30 unit 05/03/17 21:00 05/06/17 20:05 Lantus Solostar SUBQ 30 unit QPM LILLIAN Administration Morphine Sulfate 2 mg 05/03/17 11:00 05/07/17 06:19 Morphine IVP 2 mg Q2HR PRN Administration PAIN Nicotine 1 patch 05/03/17 14:00 05/06/17 09:39 Nicoderm TOP 1 patch DAILY LILLIAN Administration Polyethylene Glycol 17 gm 05/04/17 09:00 05/07/17 08:11 Miralax PO Not Given DAILY LILLIAN Sodium Chloride 10 ml 05/03/17 10:22 05/07/17 03:39 Normal Saline Flush 0.9% IVP 10 ml PRN PRN Administration NEEDED PER PROVIDER ORDERS Sodium Chloride 10 ml 05/03/17 14:00 05/07/17 06:00 Normal Saline Flush 0.9% IVP 10 ml Q8HR LILLIAN Administration Zolpidem Tartrate 5 mg 05/03/17 10:25 05/06/17 23:48 Ambien PO 5 mg QPM PRN Administration Insomnia - Lab Result Lab results reviewed: Yes Fish Bone Diagrams: 05/07/17 05:47 05/07/17 05:47 Other Lab Results: Abnormal Lab Results 05/01/17 05/01/17 05/01/17 07:29 10:05 16:34 RBC MCV MCH Glucose POC Whole Bld Glucose 236 mg/dL H mg/dL 335 mg/dL H mg/dL 254 mg/dL H mg/dL (70 - 100) (70 - 100) (70 - 100) Glycated Hemoglobin Estim Average Glucose Total Protein Albumin Albumin/Globulin Ratio Vancomycin Trough 05/01/17 05/03/17 05/03/17 20:55 20:25 21:38 RBC MCV MCH Glucose POC Whole Bld Glucose 216 mg/dL H mg/dL 295 mg/dL H mg/dL 242 mg/dL H mg/dL (70 - 100) (70 - 100) (70 - 100) Glycated Hemoglobin Estim Average Glucose Total Protein Albumin Albumin/Globulin Ratio Vancomycin Trough 07/24/17 07/24/17 07/24/17 11:09 12:07 12:58 RBC MCV MCH Glucose POC Whole Bld Glucose 107 mg/dL H mg/dL 63 mg/dL L mg/dL 193 mg/dL H mg/dL (70 - 100) (70 - 100) (70 - 100) Glycated Hemoglobin Estim Average Glucose Total Protein Albumin Albumin/Globulin Ratio Vancomycin Trough 05/05/17 05/06/17 05/06/17 16:26 05:19 05:19 RBC 4.48 10^6/uL L 10^6/uL (4.70-6.10) MCV 96.8 fL H fL (80.0-94.0) MCH 32.7 pg H pg (27.0-31.0) Glucose POC Whole Bld Glucose 269 mg/dL H mg/dL (70 - 100) Glycated Hemoglobin Estim Average Glucose Total Protein 6.4 g/dL L g/dL (6.7-8.2) Albumin 3.0 g/dL L g/dL (3.2-5.5) Albumin/Globulin Ratio 0.9 L (1.0-2.2) Vancomycin Trough 05/06/17 05/06/17 05/06/17 11:19 11:24 13:00 RBC MCV MCH Glucose POC Whole Bld Glucose 164 mg/dL H mg/dL (70 - 100) Glycated Hemoglobin 10.4 % H % (4.6-6.2) Estim Average Glucose 252 H (70-100) Total Protein Albumin Albumin/Globulin Ratio Vancomycin Trough 17.9 ug/mL H ug/mL (5.0-15.0) 05/06/17 05/06/17 05/07/17 16:42 20:02 05:47 RBC 4.52 10^6/uL L 10^6/uL (4.70-6.10) MCV 96.0 fL H fL (80.0-94.0) MCH 32.8 pg H pg (27.0-31.0) Glucose POC Whole Bld Glucose 212 mg/dL H mg/dL 254 mg/dL H mg/dL (70 - 100) (70 - 100) Glycated Hemoglobin Estim Average Glucose Total Protein Albumin Albumin/Globulin Ratio Vancomycin Trough 05/07/17 05:47 RBC MCV MCH Glucose 175 mg/dL H mg/dL (70-100) POC Whole Bld Glucose Glycated Hemoglobin Estim Average Glucose Total Protein Albumin Albumin/Globulin Ratio Vancomycin Trough - EKG Results EKG Interpreted Independently: No - Additional Planning Condition/Complexity: Improved My Orders: My Active Orders 05/07/17 08:00 Insulin Aspart [NovoLOG] 2 - 10 unit SUBQ 0800,1200,1700,2100 Consult/Specialty: OT, PT, Surgery Plan Discussed with:: Case Management Time Spent: 31-60 minutes (willbe discharge home tomorrow with antibiotics and followup with ortho in 1 week. another 24 hours stay) Subjective - Subjective Patient Reports: Feeling Better, Resting Comfortably, No Complaints Nursing Reports: No Complaints Objective Vital Signs: Vital Signs - 24 hr 05/06/17 05/06/17 05/06/17 14:00 16:03 23:41 Temperature 36.7 C 36.8 C 36.5 C Heart Rate [ 56 L 56 L 65 Brachial] Respiratory 16 16 16 Rate Blood Pressure 139/70 H [Left Brachial artery] Blood Pressure 148/76 H 136/68 H [Right Brachial artery] O2 Saturation 96 98 94 Oxygen O2 Source Room air I&O (Last 24 Hrs): Intake and Output Totals x24h 05/05/17 05/06/17 05/07/17 23:59 23:59 23:59 Intake Total 3451 3402 450 Output Total 1 Balance 3450 3402 450 General: Alert, Oriented x3, Cooperative, No acute distress HEENT: Atraumatic, PERRLA Neck: Supple, No JVD, No thyromegaly Lymphatic: no adenopathy Neuro: Alert, CN 2-12 Grossly Intact, Oriented Times 3 Cardiovascular: Regular rate, Normal S1, Normal S2 Respiratory: Chest non-tender, No respiratory distress, Breath sounds nml Abdomen: Normal bowel sounds, Soft Rectal: Stool - Heme NEG Extremities: No clubbing, No cyanosis, No edema, Normal pulses, Other (left foot with clean dry dressing and elida wrap) Skin: No rashes, No breakdown, No significant lesion - Results Results: Laboratory Results WBC 8.8 x10^3/uL (4.8-10.8) 05/07/17 05:47 RBC 4.52 10^6/uL (4.70-6.10) L 05/07/17 05:47 Hgb 14.8 g/dL (14.0-18.0) 05/07/17 05:47 Hct 43.3 % (42.0-52.0) 05/07/17 05:47 MCV 96.0 fL (80.0-94.0) H 05/07/17 05:47 MCH 32.8 pg (27.0-31.0) H 05/07/17 05:47 MCHC 34.2 g/dL (32.0-36.0) 05/07/17 05:47 RDW 12.3 % (12.0-15.0) 05/07/17 05:47 Plt Count 312 10^3/uL (130-450) 05/07/17 05:47 MPV 8.0 fL (7.4-11.4) 05/07/17 05:47 Neut # 5.8 10^3/uL (1.5-6.6) 05/07/17 05:47 Lymph # 1.5 10^3/uL (1.5-3.5) 05/07/17 05:47 [place] # 0.9 10^3/uL (0.0-1.0) 05/07/17 05:47 Eos # 0.5 10^3/uL (0.0-0.7) 05/07/17 05:47 Baso # 0.1 10^3/uL (0.0-0.1) 05/07/17 05:47 Absolute Nucleated RBC 0.01 x10^3/uL 05/07/17 05:47 Nucleated RBCs 0.1 /100WBC 05/07/17 05:47 ESR 28 mm/Hr (0-20) H 04/30/17 16:33 Sodium 137 mmol/L (135-145) 05/07/17 05:47 Potassium 4.2 mmol/L (3.5-5.0) 05/07/17 05:47 Chloride 104 mmol/L (101-111) 05/07/17 05:47 Carbon Dioxide 27 mmol/L (21-32) 05/07/17 05:47 Anion Gap 6.0 (6-13) 05/07/17 05:47 BUN 14 mg/dL (6-20) 05/07/17 05:47 Creatinine 0.8 mg/dL (0.6-1.2) 05/07/17 05:47 Estimated GFR (MDRD) 101 (>89) 05/07/17 05:47 Glucose 175 mg/dL (70-100) H 05/07/17 05:47 POC Whole Bld Glucose 212 mg/dL (70 - 100) H 05/06/17 16:42 Glycated Hemoglobin 10.4 % (4.6-6.2) H 05/06/17 13:00 Hemoglobin A1c Cancelled 04/30/17 16:33 Estim Average Glucose 252 (70-100) H 05/06/17 13:00 Calcium 8.9 mg/dL (8.5-10.3) 05/07/17 05:47 Magnesium 1.9 mg/dL (1.7-2.8) 05/02/17 05:09 Total Bilirubin 0.4 mg/dL (0.2-1.0) 05/06/17 05:19 AST 15 IU/L (10-42) 05/06/17 05:19 ALT 21 IU/L (10-60) 05/06/17 05:19 Alkaline Phosphatase 50 IU/L (42-121) 05/06/17 05:19 C-Reactive Protein 14.3 mg/dL (0-1.0) H 04/30/17 16:33 Total Protein 6.4 g/dL (6.7-8.2) L 05/06/17 05:19 Albumin 3.0 g/dL (3.2-5.5) L 05/06/17 05:19 Globulin 3.4 g/dL (2.1-4.2) 05/06/17 05:19 Albumin/Globulin Ratio 0.9 (1.0-2.2) L 05/06/17 05:19 Last Dose Date K 05/06/17 11:24 Last Dose Time K 05/06/17 11:24 Vancomycin Trough 17.9 ug/mL (5.0-15.0) H 05/06/17 11:24 - Procedures Procedures: Procedures DETACHMENT AT LEFT 2ND TOE, COMPLETE, OPEN APPROACH (03/11/16) DETACHMENT AT RIGHT 1ST TOE, HIGH, OPEN APPROACH (10/20/16) EXCIS DEBRIDE OF WOUND, INFECT, OR BURN (02/19/15) VENOUS CATHETERIZATION NEC (02/19/15)
[2017-05-07] MEDS: INSULIN ASPART 300 UNIT/3 ML PEN SUBQ SCH ×7 (09:16→21:12)
--- NOTE | 2017-05-07 09:36 | PROVIDER PROGRESS NOTE ---
Subjective - General Admit Date: 04/30/17 Procedure Date: 05/03/17 Post Op Days: 5 Procedure Performed: amputation left 5th toe - Review of Systems Wound/Incisions: positive: Drainage General: positive: No symptoms Gastrointestinal: positive: No symptoms Musculoskeletal: positive: Foot pain, Joint pain Psychiatric: positive: No symptoms Objective - Patient Data Reviewed Vital Signs: Yes Vital Signs: Vital Signs x48h Temp Pulse Resp BP Pulse Ox 05/07/17 08:51 36.4 C L 53 L 16 131/80 H 96 Intake & Output: Intake and Output Totals x24h 05/05/17 05/06/17 05/07/17 23:59 23:59 23:59 Intake Total 3451 3402 450 Output Total 1 Balance 3450 3402 450 - Lab Results Lab Results: 05/08/17 05:27 05/08/17 05:27 Other Lab Results: Lab Results x24hrs 05/07/17 05/07/17 05/06/17 Range/Units 05:47 05:47 16:42 WBC 8.8 (4.8-10.8) x10^3/uL RBC 4.52 L (4.70-6.10) 10^6/uL Hgb 14.8 (14.0-18.0) g/dL Hct 43.3 (42.0-52.0) % MCV 96.0 H (80.0-94.0) fL MCH 32.8 H (27.0-31.0) pg MCHC 34.2 (32.0-36.0) g/dL RDW 12.3 (12.0-15.0) % Plt Count 312 (130-450) 10^3/uL MPV 8.0 (7.4-11.4) fL Neut # 5.8 (1.5-6.6) 10^3/uL Lymph # 1.5 (1.5-3.5) 10^3/uL Harvey # 0.9 (0.0-1.0) 10^3/uL Eos # 0.5 (0.0-0.7) 10^3/uL Baso # 0.1 (0.0-0.1) 10^3/uL Absolute Nucleated RBC 0.01 x10^3/uL Nucleated RBCs 0.1 /100WBC Sodium 137 (135-145) mmol/L Potassium 4.2 (3.5-5.0) mmol/L Chloride 104 (101-111) mmol/L Carbon Dioxide 27 (21-32) mmol/L Anion Gap 6.0 (6-13) BUN 14 (6-20) mg/dL Creatinine 0.8 (0.6-1.2) mg/dL Estimated GFR (MDRD) 101 (>89) Glucose 175 H (70-100) mg/dL POC Whole Bld Glucose 212 H (70 - 100) mg/dL Glycated Hemoglobin (4.6-6.2) % Estim Average Glucose (70-100) Calcium 8.9 (8.5-10.3) mg/dL Last Dose Date Last Dose Time Vancomycin Trough (5.0-15.0) ug/mL 05/06/17 05/06/17 05/06/17 Range/Units 13:00 11:24 11:19 WBC (4.8-10.8) x10^3/uL RBC (4.70-6.10) 10^6/uL Hgb (14.0-18.0) g/dL Hct (42.0-52.0) % MCV (80.0-94.0) fL MCH (27.0-31.0) pg MCHC (32.0-36.0) g/dL RDW (12.0-15.0) % Plt Count (130-450) 10^3/uL MPV (7.4-11.4) fL Neut # (1.5-6.6) 10^3/uL Lymph # (1.5-3.5) 10^3/uL Harvey # (0.0-1.0) 10^3/uL Eos # (0.0-0.7) 10^3/uL Baso # (0.0-0.1) 10^3/uL Absolute Nucleated RBC x10^3/uL Nucleated RBCs /100WBC Sodium (135-145) mmol/L Potassium (3.5-5.0) mmol/L Chloride (101-111) mmol/L Carbon Dioxide (21-32) mmol/L Anion Gap (6-13) BUN (6-20) mg/dL Creatinine (0.6-1.2) mg/dL Estimated GFR (MDRD) (>89) Glucose (70-100) mg/dL POC Whole Bld Glucose 164 H (70 - 100) mg/dL Glycated Hemoglobin 10.4 H (4.6-6.2) % Estim Average Glucose 252 H (70-100) Calcium (8.5-10.3) mg/dL Last Dose Date UNK Last Dose Time UNK Vancomycin Trough 17.9 H (5.0-15.0) ug/mL 05/06/17 05/05/17 05/05/17 Range/Units 07:28 16:26 12:58 WBC (4.8-10.8) x10^3/uL RBC (4.70-6.10) 10^6/uL Hgb (14.0-18.0) g/dL Hct (42.0-52.0) % MCV (80.0-94.0) fL MCH (27.0-31.0) pg MCHC (32.0-36.0) g/dL RDW (12.0-15.0) % Plt Count (130-450) 10^3/uL MPV (7.4-11.4) fL Neut # (1.5-6.6) 10^3/uL Lymph # (1.5-3.5) 10^3/uL Harvey # (0.0-1.0) 10^3/uL Eos # (0.0-0.7) 10^3/uL Baso # (0.0-0.1) 10^3/uL Absolute Nucleated RBC x10^3/uL Nucleated RBCs /100WBC Sodium (135-145) mmol/L Potassium (3.5-5.0) mmol/L Chloride (101-111) mmol/L Carbon Dioxide (21-32) mmol/L Anion Gap (6-13) BUN (6-20) mg/dL Creatinine (0.6-1.2) mg/dL Estimated GFR (MDRD) (>89) Glucose (70-100) mg/dL POC Whole Bld Glucose 76 269 H 193 H (70 - 100) mg/dL Glycated Hemoglobin (4.6-6.2) % Estim Average Glucose (70-100) Calcium (8.5-10.3) mg/dL Last Dose Date Last Dose Time Vancomycin Trough (5.0-15.0) ug/mL 05/05/17 05/05/17 05/03/17 Range/Units 12:07 11:09 21:38 WBC (4.8-10.8) x10^3/uL RBC (4.70-6.10) 10^6/uL Hgb (14.0-18.0) g/dL Hct (42.0-52.0) % MCV (80.0-94.0) fL MCH (27.0-31.0) pg MCHC (32.0-36.0) g/dL RDW (12.0-15.0) % Plt Count (130-450) 10^3/uL MPV (7.4-11.4) fL Neut # (1.5-6.6) 10^3/uL Lymph # (1.5-3.5) 10^3/uL Harvey # (0.0-1.0) 10^3/uL Eos # (0.0-0.7) 10^3/uL Baso # (0.0-0.1) 10^3/uL Absolute Nucleated RBC x10^3/uL Nucleated RBCs /100WBC Sodium (135-145) mmol/L Potassium (3.5-5.0) mmol/L Chloride (101-111) mmol/L Carbon Dioxide (21-32) mmol/L Anion Gap (6-13) BUN (6-20) mg/dL Creatinine (0.6-1.2) mg/dL Estimated GFR (MDRD) (>89) Glucose (70-100) mg/dL POC Whole Bld Glucose 63 L 107 H 242 H (70 - 100) mg/dL Glycated Hemoglobin (4.6-6.2) % Estim Average Glucose (70-100) Calcium (8.5-10.3) mg/dL Last Dose Date Last Dose Time Vancomycin Trough (5.0-15.0) ug/mL 05/03/17 05/01/17 05/01/17 Range/Units 20:25 20:55 16:34 WBC (4.8-10.8) x10^3/uL RBC (4.70-6.10) 10^6/uL Hgb (14.0-18.0) g/dL Hct (42.0-52.0) % MCV (80.0-94.0) fL MCH (27.0-31.0) pg MCHC (32.0-36.0) g/dL RDW (12.0-15.0) % Plt Count (130-450) 10^3/uL MPV (7.4-11.4) fL Neut # (1.5-6.6) 10^3/uL Lymph # (1.5-3.5) 10^3/uL Harvey # (0.0-1.0) 10^3/uL Eos # (0.0-0.7) 10^3/uL Baso # (0.0-0.1) 10^3/uL Absolute Nucleated RBC x10^3/uL Nucleated RBCs /100WBC Sodium (135-145) mmol/L Potassium (3.5-5.0) mmol/L Chloride (101-111) mmol/L Carbon Dioxide (21-32) mmol/L Anion Gap (6-13) BUN (6-20) mg/dL Creatinine (0.6-1.2) mg/dL Estimated GFR (MDRD) (>89) Glucose (70-100) mg/dL POC Whole Bld Glucose 295 H 216 H 254 H (70 - 100) mg/dL Glycated Hemoglobin (4.6-6.2) % Estim Average Glucose (70-100) Calcium (8.5-10.3) mg/dL Last Dose Date Last Dose Time Vancomycin Trough (5.0-15.0) ug/mL 05/01/17 05/01/17 Range/Units 10:05 07:29 WBC (4.8-10.8) x10^3/uL RBC (4.70-6.10) 10^6/uL Hgb (14.0-18.0) g/dL Hct (42.0-52.0) % MCV (80.0-94.0) fL MCH (27.0-31.0) pg MCHC (32.0-36.0) g/dL RDW (12.0-15.0) % Plt Count (130-450) 10^3/uL MPV (7.4-11.4) fL Neut # (1.5-6.6) 10^3/uL Lymph # (1.5-3.5) 10^3/uL Harvey # (0.0-1.0) 10^3/uL Eos # (0.0-0.7) 10^3/uL Baso # (0.0-0.1) 10^3/uL Absolute Nucleated RBC x10^3/uL Nucleated RBCs /100WBC Sodium (135-145) mmol/L Potassium (3.5-5.0) mmol/L Chloride (101-111) mmol/L Carbon Dioxide (21-32) mmol/L Anion Gap (6-13) BUN (6-20) mg/dL Creatinine (0.6-1.2) mg/dL Estimated GFR (MDRD) (>89) Glucose (70-100) mg/dL POC Whole Bld Glucose 335 H 236 H (70 - 100) mg/dL Glycated Hemoglobin (4.6-6.2) % Estim Average Glucose (70-100) Calcium (8.5-10.3) mg/dL Last Dose Date Last Dose Time Vancomycin Trough (5.0-15.0) ug/mL - Current Medications Current Medications: Current Medications Generic Name Dose Route Start Last Admin Trade Name Freq PRN Reason Stop Dose Admin Acetaminophen/Hydrocodone Bitart 1 tab 05/03/17 10:25 05/06/17 20:02 [place] 5/325 PO 1 tab Q4HR PRN Administration Pain 5 to 7 Enoxaparin Sodium 40 mg 05/04/17 09:00 05/07/17 08:11 Lovenox SUBQ 40 mg DAILY LILLIAN Administration Famotidine 20 mg 05/04/17 09:00 05/07/17 08:11 Pepcid PO Not Given DAILY LILLIAN Gabapentin 600 mg 05/03/17 14:00 05/07/17 08:11 Neurontin PO 600 mg DAILY LILLIAN Administration Gabapentin 300 mg 05/03/17 21:00 05/06/17 20:02 Neurontin PO 300 mg QPM LILLIAN Administration Acetaminophen 100 mls @ 400 mls/hr 05/03/17 10:22 05/03/17 10:35 Ofirmev IV 100 mls Q6HR PRN Administration PAIN Piperacillin Sod/Tazobactam 100 mls @ 200 mls/hr 05/03/17 11:00 05/07/17 06:00 Sod 3.375 gm/ Sodium Chloride IV 200 mls/hr Q6H LILLIAN Administration Vancomycin HCl 1 gm/ Sodium 250 mls @ 250 mls/hr 05/05/17 12:00 05/07/17 03:38 Chloride IV 250 mls/hr Q8H LILLIAN Administration Insulin Aspart 7 unit 05/03/17 17:00 05/07/17 09:16 Novolog SUBQ 7 unit TIDWM LILLIAN Administration Protocol Insulin Aspart 2 - 10 unit 05/07/17 08:00 05/07/17 09:17 Novolog SUBQ 2 unit 0800,1200,1700,2100 LILLIAN Administration Protocol Insulin Glargine 30 unit 05/03/17 21:00 05/06/17 20:05 Lantus Solostar SUBQ 30 unit QPM LILLIAN Administration Morphine Sulfate 2 mg 05/03/17 11:00 05/07/17 06:19 Morphine IVP 2 mg Q2HR PRN Administration PAIN Nicotine 1 patch 05/03/17 14:00 05/06/17 09:39 Nicoderm TOP 1 patch DAILY LILLIAN Administration Polyethylene Glycol 17 gm 05/04/17 09:00 05/07/17 08:11 Miralax PO Not Given DAILY LILLIAN Sodium Chloride 10 ml 05/03/17 10:22 05/07/17 03:39 Normal Saline Flush 0.9% IVP 10 ml PRN PRN Administration NEEDED PER PROVIDER ORDERS Sodium Chloride 10 ml 05/03/17 14:00 05/07/17 06:00 Normal Saline Flush 0.9% IVP 10 ml Q8HR LILLIAN Administration Zolpidem Tartrate 5 mg 05/03/17 10:25 05/06/17 23:48 Ambien PO 5 mg QPM PRN Administration Insomnia - Physical Exam Skin: positive: Warm Impression/Plan - Problem List Problem List: Doing well. PLan on wound care as outpatient, Cam boot and PO antibiotics. I have explained that we have not definitively "won" until there is granulation and closure of the wound and that delayed closure is only an option if and when the wound develops healthy granulation tissue.
[2017-05-07] MEDS: LINEZOLID 600 MG/300 ML 300 ML IV SCH (21:11)
[2017-05-07] MEDS: INSULIN GLARGINE 300 UNIT/3 ML PEN SUBQ SCH (21:11)
[2017-05-07] MEDS: ZOLPIDEM 5 MG TABLET PO PRN (23:56)
[2017-05-08] MEDS: SODIUM CHLORIDE FLUSH 0.9% 10 ML SYRINGE IVP SCH (06:17)
[2017-05-08 06:25] LABS: BASOPHILS # (AUTO) 0.1 10^3/uL (0.0-0.1); BASOPHILS % (AUTO) 1.5 %; EOSINOPHILS # (AUTO) 0.4 10^3/uL (0.0-0.7); HCT - HEMATOCRIT 43.9 % (42.0-52.0); HGB - HEMOGLOBIN 14.9 g/dL (14.0-18.0); LYMPHOCYTES # (AUTO) 1.6 10^3/uL (1.5-3.5); LYMPHOCYTES % (AUTO) 18.5 %; MEAN CORPUSCULAR HEMOGLOBIN 32.4 pg (27.0-31.0); MEAN CORPUSCULAR HGB CONC 33.9 g/dL (32.0-36.0); MEAN CORPUSCULAR VOLUME 95.6 fL (80.0-94.0); MONOCYTES # (AUTO) 1.1 10^3/uL (0.0-1.0); MONOCYTES % (AUTO) 12.6 %; NEUTROPHILS # (AUTO) 5.4 10^3/uL (1.5-6.6); NEUTROPHILS % (AUTO) 62.4 %; RED BLOOD COUNT 4.59 10^6/uL (4.70-6.10); RED CELL DISTRIBUTION WIDTH 12.2 % (12.0-15.0); UNCORRECTED WHITE BLOOD COUNT 8.7 x10^3/uL; WHITE BLOOD COUNT 8.7 x10^3/uL (4.8-10.8)
[2017-05-08 06:30] LABS: BILIRUBIN,TOTAL 0.3 mg/dL (0.2-1.0); CALCIUM 8.7 mg/dL (8.5-10.3); CREATININE 0.7 mg/dL (0.6-1.2); POTASSIUM 4.2 mmol/L (3.5-5.0); TOTAL PROTEIN 6.7 g/dL (6.7-8.2)
[2017-05-08 07:33] VITALS: BP 130/76
--- NOTE | 2017-05-08 08:40 | Discharge Plan ---
Discharge Plan Disposition: Home, Self Care Condition: Good Prescriptions: HYDROcod/ACETAM 5/325 [[place] 5/325] 1 tab PO Q4HR PRN #30 tablet PRN Reason: Pain 5 to 7 Nicotine 21 mg Patch [Nicoderm] 1 patch TOP DAILY #15 patch Linezolid [Zyvox] 600 mg PO BID #20 tablet Diet: Diabetic Activity Restrictions: Activity as Tolerated Shower Restrictions: Yes (avoid getting the left foot and bandage wet. No baths) Driving Restrictions: No Assistance Devices: Crutches Weight Bearing: No Weight (no weight on the left foot and toes) Instruction Topics: Diabetes Healthy Meals, Diabetes Treat Severe Foot Infecs, Diabetes Penitentiary Complications Additional Instructions or Follow Up instructions: Continue on all home medications as prescribed. You have been given a prescription for Zyvox. This is an antibiotic and must be taken twice a day till gone. You need to take the pain medication as prescribed. You need to be sure to check your blood glucose with meals daily. continue on the diabetic diet and monitor your carbohydrates during the day. You need to eat more protein such as meat and chicken, fish daily. This helps to heal the wounds You need to keep the dressing clean and dry. See the wound clinic as prescribed. You need to return to the ER if you notice a foul odor, worsening pain or bleeding at the sight, fever or chills and sweats. Exercise daily as tolerated. Get plenty of sleep thoughout the day and at least 7-8 hours at night. See your primary care provider within the week after discharge. You will need to call and make an appointment with the office. Tell them you were just discharged from the hospital. You need to followup with surgery as recommended from the doctor within the week. Return to the ER if symptoms worsen or you have chest pain or shortness of breath Follow-Up Care: Outpatient Rehab - PT, Outpatient Rehab - OT No Smoking: If you smoke, Please STOP! Call for help.
[2017-05-08] MEDS: INSULIN ASPART 300 UNIT/3 ML PEN SUBQ SCH ×4 (08:46→12:00)
--- NOTE | 2017-05-08 08:53 | DISCHARGE SUMMARY ---
"Discharge Summary Admit Date: 04/30/17 Discharge Date: 05/08/17 Discharging Provider: Taya Zafra APRN Primary Care Provider: Nazia Shea Code Status: Attempt Resuscitation Condition at Discharge: Good Discharge Disposition: 01 Home, Self Care Discharge Facility Name: home - DIAGNOSES Admission Diagnoses: 1. Acute diabetic foot neuropathy secondary to left foot ulceration 2. Tobacco usage, uncomplicated 3. insulin dependent diabetes mellitus with complications 4. chronic venous insufficiency Discharge Diagnoses with Status of Each Condition: 1. Acute diabetic foot neuropathy bilaterally secondary to left diabetic foot ulceration with 5th toe amputation 2. Chronic Tobacco usage, uncomplicated 3. Hyperglycemia with insulin dependent diabetes mellitus with complications 4. 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 Patient report her foot has been on infection about four days. He visited his primary doctor office, and have Clindamycin and Augmentin prescribed. He report his foot infection did not get better, and continue to have some drainage and pain. Patient report he has been on good control on his blood sugar. He had Lantus and Novolog insulin as scheduled to be SUBQ injected to control his sugar. Patient report Doctor José did amputation on his right big toe and left second toe on last year and early this year. Patient state he prefer to be amputated again on his toe if osteomyelitis presents. He is ready from physiological and psychological point. Patient state he had the similar feeling as before, his foot had osteomyelitis. Patient denies fever, chill, night sweating, chest pain, other symptoms at this point. 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 Lab test reveals WBC 13.3 and left shift, CRP 14.3, ESR 28. Vital signs are stable, no fever. Patient is admitted for IV antibiotic to control wound infection, wound care, and will do MRI and consult surgeon after MRI. - CONSULTS | PROCEDURES Consultations: surgery Procedures: left foot toe surgery Admit Date: 04/30/17 Procedure Date: 05/03/17 Planned Procedure: amputation left 5th toe and debridement Pre-Op Diagnosis: osteomyelitis left 5th toe Post Op Diagnosis: same - Procedure Note Primary Surgeon: josé Anesthesia Provider: Anderson: Spinal Anesthesia Technique: Combo spinal/epidural Pathology: abscess and osteomyelitis left 5th toe Drain/Tube Type: Other (nu-gauze) - HOSPITAL COURSE Hospital Course: Patient is a 51 year old male with uncontolled diabetes insulin dependent who came in from the ER for ulceration to 5th left toe. He was started on IV Levaquin antibiotics and given IVF NS for gentle hydration. he was treated for pain and given tylenol for fever. Ortho saw patient on consult for amputation of the 5th digit. He continued on antibiotics for osteomylitis. he was [place] [facility] [place]. he was on a diabetic diet and on sliding scale insulin for his diabetes. His hemoglobin A1C was elevated and he received counseling regarding diabetes management. He was ambulating with PT and OT assist. he was discharged home with followup with ortho and the [facility] [place] for wounds care. - ALLERGIES Allergies/Adverse Reactions: Allergies Allergy/AdvReac Type Severity Reaction Status Date / Time No Known Drug Allergies Allergy Verified 10/14/16 22:09 - MEDICATIONS Home Medications: Ambulatory Orders Medication Instructions Recorded Confirmed Insulin Glargine,Hum.rec.anlog 30 units SQ QPM 03/07/15 05/01/17 [Lantus Solostar] Gabapentin 600 mg PO DAILY 03/11/16 05/01/17 Gabapentin 300 mg PO QPM 10/05/16 05/01/17 Sildenafil Citrate [Sildenafil] 20 mg PO QPM PRN 10/21/16 05/01/17 Insulin Aspart [NovoLOG] 0 unit SUBQ 0800,1200,1700,2100 11/28/16 05/01/17 #30 pen HYDROcod/ACETAM 5/325 [[place] 5/325] 1 tab PO Q4HR PRN #30 tablet 05/08/17 Levofloxacin [Levaquin] 750 mg PO DAILY #10 tablet 05/08/17 Linezolid [Zyvox] 600 mg PO BID #20 tablet 05/08/17 Nicotine 21 mg Patch [Nicoderm] 1 patch TOP DAILY #15 patch 05/08/17 Home Medications Other | Comments: Patient History Medication Instructions Recorded Confirmed Insulin Glargine,Hum.rec.anlog 30 units SQ QPM 03/07/15 05/01/17 [Lantus Solostar] Gabapentin 600 mg PO DAILY 03/11/16 05/01/17 Gabapentin 300 mg PO QPM 10/05/16 05/01/17 Sildenafil Citrate [Sildenafil] 20 mg PO QPM PRN 10/21/16 05/01/17 - PHYSICAL EXAM AT DISCHARGE General Appearance: positive: No acute distress, Alert Eyes Bilateral: positive: Normal inspection, PERRL, EOMI ENT: positive: Pharynx nml, No signs of dehydration Neck: positive: Nml inspection, Thyroid nml, No JVD Respiratory: positive: Chest non-tender, No respiratory distress, Breath sounds nml Cardiovascular: positive: Regular rate & rhythm, No murmur, No gallop Peripheral Pulses: positive: 2+ Abdomen: positive: Non-tender Rectal: positive: Non-tender Back: positive: Nml inspection Skin: positive: No rash, Warm, Dry Extremities: positive: Non-tender, Full ROM, Nml appearance, Other (bandage to left foot over toes) Neurologic/Psychiatric: positive: Oriented x3, Motor nml, Sensation nml - LABS Result Diagrams: 05/08/17 05:27 05/08/17 05:27 Other Lab Results: Abnormal Lab Results 05/01/17 05/01/17 05/01/17 07:29 10:05 16:34 RBC MCV MCH [place] # Glucose POC Whole Bld Glucose 236 mg/dL H mg/dL 335 mg/dL H mg/dL 254 mg/dL H mg/dL (70 - 100) (70 - 100) (70 - 100) Glycated Hemoglobin Estim Average Glucose Vancomycin Trough 05/01/17 05/03/17 05/03/17 20:55 20:25 21:38 RBC MCV MCH [place] # Glucose POC Whole Bld Glucose 216 mg/dL H mg/dL 295 mg/dL H mg/dL 242 mg/dL H mg/dL (70 - 100) (70 - 100) (70 - 100) Glycated Hemoglobin Estim Average Glucose Vancomycin Trough 05/05/17 05/05/17 05/05/17 11:09 12:07 12:58 RBC MCV MCH [place] # Glucose POC Whole Bld Glucose 107 mg/dL H mg/dL 63 mg/dL L mg/dL 193 mg/dL H mg/dL (70 - 100) (70 - 100) (70 - 100) Glycated Hemoglobin Estim Average Glucose Vancomycin Trough 05/05/17 05/06/17 05/06/17 16:26 11:19 11:24 RBC MCV MCH [place] # Glucose POC Whole Bld Glucose 269 mg/dL H mg/dL 164 mg/dL H mg/dL (70 - 100) (70 - 100) Glycated Hemoglobin Estim Average Glucose Vancomycin Trough 17.9 ug/mL H ug/mL (5.0-15.0) 05/06/17 05/06/17 05/06/17 13:00 16:42 20:02 RBC MCV MCH [place] # Glucose POC Whole Bld Glucose 212 mg/dL H mg/dL 254 mg/dL H mg/dL (70 - 100) (70 - 100) Glycated Hemoglobin 10.4 % H % (4.6-6.2) Estim Average Glucose 252 H (70-100) Vancomycin Trough 05/07/17 05/07/17 05/08/17 05:47 05:47 05:27 RBC 4.52 10^6/uL L 10^6/uL 4.59 10^6/uL L 10^6/uL (4.70-6.10) (4.70-6.10) MCV 96.0 fL H fL 95.6 fL H fL (80.0-94.0) (80.0-94.0) MCH 32.8 pg H pg 32.4 pg H pg (27.0-31.0) (27.0-31.0) [place]edar # 1.1 10^3/uL H 10^3/uL (0.0-1.0) Glucose 175 mg/dL H mg/dL (70-100) POC Whole Bld Glucose Glycated Hemoglobin Estim Average Glucose Vancomycin Trough 05/08/17 05:27 RBC MCV MCH [place] # Glucose 129 mg/dL H mg/dL (70-100) POC Whole Bld Glucose Glycated Hemoglobin Estim Average Glucose Vancomycin Trough - DIAGNOSTIC IMAGING Diagnostic Imaging Results: See rad report - FOLLOW UP Follow Up: Pt counseled regarding expected course and signs and symptoms for which I believe an urgent re-evaluation would be necessary. Pt with good understanding and agreement to plan. Will have pt follow up with PCP for further care or return if pt worsens. Pt comfortable with plan. Time spent with patient was 45 minutes for planning and education"
[2017-05-08] MEDS: LINEZOLID 600 MG/300 ML 300 ML IV SCH (09:50)
[2017-05-08] MEDS: NICOTINE 21 MG PATCH TOP SCH (10:58)
[2017-05-08] MEDS: ENOXAPARIN 40 MG/0.4 ML SYRINGE SUBQ SCH (10:58)
[2017-05-08] MEDS: SODIUM CHLORIDE FLUSH 0.9% 10 ML SYRINGE IVP PRN (10:59)
[2017-05-08] MEDS: FAMOTIDINE 20 MG TABLET PO SCH (10:59)
[2017-05-08] MEDS: GABAPENTIN 300 MG CAPSULE PO SCH (10:59)
[2017-05-08] MEDS: POLYETHYLENE GLYCOL 3350 17 GM PACKET PO SCH (10:59)
== END 2017-05-08 12:15 | disposition home or self-care (01) | DRG 617 ==
LOC: ED 13:31 → MS 18:21 → MS2 05-05 09:07
PROVIDERS: ADMIT Nurse Practitioner Gerontology; ATTEND Nurse Practitioner
PROC: 0Y6Y0Z0 Detachment at Left 5th Toe, Complete, Open Approach (ICD-10-PCS; principal; 2017-05-03 09:00)
DX: E11.69 Type 2 diabetes mellitus with other specified complication (principal); M86.172 Other acute osteomyelitis, left ankle and foot; L02.612 Cutaneous abscess of left foot; E11.52 Type 2 diabetes mellitus with diabetic peripheral angiopathy with gangrene; L03.032 Cellulitis of left toe; E11.65 Type 2 diabetes mellitus with hyperglycemia; E11.621 Type 2 diabetes mellitus with foot ulcer; L97.521 Non-pressure chronic ulcer of other part of left foot limited to breakdown of skin; E11.40 Type 2 diabetes mellitus with diabetic neuropathy, unspecified; I87.2 Venous insufficiency (chronic) (peripheral); F17.210 Nicotine dependence, cigarettes, uncomplicated; Z79.4 Long term (current) use of insulin; Z89.411 Acquired absence of right great toe; Z89.422 Acquired absence of other left toe(s); Z71.89 Other specified counseling; Z71.6 Tobacco abuse counseling
CPT/HCPCS: 36415; 80048; 80053; 83036; 83735; 85025; 85651; 86140; 87040; 87070; 87077; 87205; 88305; 88311; 93922; 96365; 96368; 99283; 99285

== ENCOUNTER 2018-01-13 16:42 | Emergency (ER) | payer MEDICAID ==
[2018-01-13 16:49] VITALS: BP 169/90
--- NOTE | 2018-01-13 17:36 | ED Physician Documentation ---
History of Present Illness - Stated complaint Stated Complaint: RT FOOT LAC/DIABETES - Chief complaint Chief Complaint: Wound - Additonal information Additional information: hx from pt 52 male diabetic already had toe amputations was performing foot care at home and trying to cut off a callous he cut into his foot and cuased bleeding he has neuropathy and cannot feel his feet states sugars running mid 100s Review of Systems Skin: reports: Laceration (s) PD PAST MEDICAL HISTORY - Past Medical History Past Medical History: Yes Cardiovascular: None Respiratory: None Neuro: None Endocrine/Autoimmune: Type 2 diabetes GI: None : None HEENT: None Psych: None Musculoskeletal: None Derm: None - Past Surgical History Past Surgical History: Yes General: Appendectomy Ortho: Other - Present Medications Home Medications: Ambulatory Orders Medication Instructions Recorded Confirmed Insulin Glargine,Hum.rec.anlog 30 units SQ QPM 03/07/15 07/31/17 [Lantus Solostar] Gabapentin 600 mg PO DAILY 03/11/16 07/31/17 Gabapentin 300 mg PO QPM 10/05/16 07/31/17 Sildenafil Citrate [Sildenafil] 20 mg PO QPM PRN 10/21/16 07/31/17 Insulin Aspart [NovoLOG] 5 unit SUBQ 0800,1200,1700,2100 06/05/17 07/31/17 metFORMIN [Glucophage] 500 mg PO BID 06/05/17 07/31/17 Atorvastatin Calcium 10 mg PO DAILY 07/31/17 07/31/17 Losartan Potassium 50 mg PO DAILY 07/31/17 07/31/17 Amox/Clav 875/125 [Augmentin] 1 each PO Q12H #20 tablet 01/13/18 - Allergies Allergies/Adverse Reactions: Allergies Allergy/AdvReac Type Severity Reaction Status Date / Time No Known Drug Allergies Allergy Verified 10/14/16 22:09 - Social History Does the pt smoke?: Yes Smoking Status: Current every day smoker Does the pt drink ETOH?: Yes Does the pt have substance abuse?: No - Immunizations Immunizations are current?: Yes - POLST Patient has POLST: No PD ED PE NORMAL - Vitals Vital signs reviewed: Yes - Extremities Extremities: Other (R foot : great toe amputated, 3rd toe with very early breakdown to the tip, lateral aspect foot near head 5th MT with thickened horny irreg callous, part of callous is cut into and extneds off callous and into skin causing approx 1.5 cm shapr linear lac, no sensation (normal for his neuropathy) no erythema warmth dc etc, good perfusion) Results - Vitals Vitals: Vital Signs - 24 hr 01/13/18 16:45 Temperature 36.6 C Heart Rate 77 Respiratory 17 Rate Blood Pressure 169/90 H O2 Saturation 99 Oxygen O2 Source Room air PD MEDICAL DECISION MAKING - ED course ED course: occured yestrday and diabetic foot so cannot suture Departure - Departure Disposition: 01 Home, Self Care Clinical Impression: Foot laceration Qualifiers: Encounter type: initial encounter Laterality: right Qualified Code(s): S91.311A - Laceration without foreign body, right foot, initial encounter Follow-Up: JENNY CRANE [Primary Care Provider] - Prescriptions: Amox/Clav 875/125 [Augmentin] 1 each PO Q12H #20 tablet Comments: Right now this cut is not infected But it will need to be carefully attended to to prevent an infection from developing Please wash the foot with soap and water, apply antibiotic ointment and then a bandaid and clean sock twice a day I did prescribe antibiotics but only want you to take those if redness swelling or drainage appears. Follow up with your PMD for a wound check tomorrow as scheduled Also I noticed that you have an early ulcer forming on the tip of your 3rd toe I strongly recommend your PMD refer you to a emergency planning and response manager for regular foot care ( check for developing infections, safely trim the nails and smooth the callouses ) to prevent more diabetic foot infections. In the mean time try soaking your foot and using a pumice stone instead of trying to cut off the callous
[2018-01-13] MEDS ORDERED: BACITRACIN OINT TOP STA (17:44)
== END 2018-01-13 17:58 | disposition home or self-care (01) ==
LOC: ED 16:42
DX: S91.311A Laceration without foreign body, right foot, initial encounter (principal); W45.8XXA Other foreign body or object entering through skin, initial encounter; E11.9 Type 2 diabetes mellitus without complications; L85.8 Other specified epidermal thickening; Z79.4 Long term (current) use of insulin; Z89.411 Acquired absence of right great toe
CPT/HCPCS: 99283; A9270

== ENCOUNTER 2018-05-04 18:00 | Emergency (ER) | payer MEDICAID ==
--- NOTE | 2018-05-04 20:59 | ED Physician Documentation ---
PD HPI SKIN - Stated complaint Stated Complaint: L ARM RASH - Chief complaint Chief Complaint: General - History obtained from History obtained from: Patient PD PAST MEDICAL HISTORY - Past Medical History Past Medical History: Yes Cardiovascular: None Respiratory: None Neuro: None Endocrine/Autoimmune: Type 2 diabetes GI: None : None HEENT: None Psych: None Musculoskeletal: None Derm: None - Past Surgical History Past Surgical History: Yes General: Appendectomy Ortho: Other - Present Medications Home Medications: Ambulatory Orders Medication Instructions Recorded Confirmed Insulin Glargine,Hum.rec.anlog 30 units SQ QPM 03/07/15 07/31/17 [Lantus Solostar] Gabapentin 600 mg PO DAILY 03/11/16 07/31/17 Gabapentin 300 mg PO QPM 10/05/16 07/31/17 Sildenafil Citrate [Sildenafil] 20 mg PO QPM PRN 10/21/16 07/31/17 Atorvastatin Calcium 10 mg PO DAILY 07/31/17 07/31/17 Losartan Potassium 50 mg PO DAILY 07/31/17 07/31/17 - Allergies Allergies/Adverse Reactions: Allergies Allergy/AdvReac Type Severity Reaction Status Date / Time No Known Drug Allergies Allergy Verified 05/04/18 18:08 - Social History Does the pt smoke?: Yes Smoking Status: Current every day smoker Does the pt drink ETOH?: Yes Does the pt have substance abuse?: No - Immunizations Immunizations are current?: Yes - POLST Patient has POLST: No Results - Vitals Vitals: Vital Signs - 24 hr 05/04/18 05/04/18 18:05 20:11 Temperature 36.8 C 36.7 C Heart Rate 76 75 Respiratory 20 18 Rate Blood Pressure 173/87 H 160/81 H O2 Saturation 97 96 Oxygen O2 Source Room air [employer] MEDICAL DECISION MAKING - Sepsis Event Vital Signs: Vital Signs - 24 hr 05/04/18 05/04/18 18:05 20:11 Temperature 36.8 C 36.7 C Heart Rate 76 75 Respiratory 20 18 Rate Blood Pressure 173/87 H 160/81 H O2 Saturation 97 96 Oxygen O2 Source Room air
--- NOTE | 2018-05-04 21:09 | ED Physician Documentation ---
PD HPI SKIN - Stated complaint Stated Complaint: L ARM RASH - Chief complaint Chief Complaint: General - History obtained from History obtained from: Patient - History of Present Illness Timing - onset: How many days ago (2) Timing - duration: Days (2) Timing - details: Gradual onset, Still present Location: LUE Quality / character: Itchy, Discolored, Raised Associated symptoms: No: Fever, Myalgias, Joint pain, Headache Contributing factors: Other (tatoo 2 weeks ago) Similar symptoms before: Diagnosis (skin infection) Recently seen: Not recently seen - Additional information Additional information: 52-year-old type II diabetic has had a tattoo placed on his left forearm 2 weeks ago. During that procedure they placed a template over the arm and wrapped it following the procedure. He states that the tattoo was healing well with no signs of any inflammation. About 72 hours ago he began to develop some small red bumps to the forearm with erythema. He is concerned about the possibility of infection. Review of Systems Constitutional: denies: Fever Eyes: denies: Decreased vision Ears: denies: Ear pain Nose: denies: Congestion Throat: denies: Oral lesions / sores Respiratory: denies: Cough GI: denies: Vomiting, Diarrhea Skin: reports: Rash, Lesions PD PAST MEDICAL HISTORY - Past Medical History Past Medical History: Yes Cardiovascular: None Respiratory: None Neuro: None Endocrine/Autoimmune: Type 2 diabetes GI: None : None HEENT: None Psych: None Musculoskeletal: None Derm: None - Past Surgical History Past Surgical History: Yes General: Appendectomy Ortho: Other - Present Medications Home Medications: Ambulatory Orders Medication Instructions Recorded Confirmed Insulin Glargine,Hum.rec.anlog 30 units SQ QPM 03/07/15 07/31/17 [Lantus Solostar] Gabapentin 600 mg PO DAILY 03/11/16 07/31/17 Gabapentin 300 mg PO QPM 10/05/16 07/31/17 Sildenafil Citrate [Sildenafil] 20 mg PO QPM PRN 10/21/16 07/31/17 Atorvastatin Calcium 10 mg PO DAILY 07/31/17 07/31/17 Losartan Potassium 50 mg PO DAILY 07/31/17 07/31/17 Sulfamethoxazole/Trimethoprim 1 each PO BID #14 tablet 05/04/18 [Sulfamethoxazole-Tmp Ds Tablet] - Allergies Allergies/Adverse Reactions: Allergies Allergy/AdvReac Type Severity Reaction Status Date / Time No Known Drug Allergies Allergy Verified 05/04/18 18:08 - Social History Does the pt smoke?: Yes Smoking Status: Current every day smoker Does the pt drink ETOH?: Yes Does the pt have substance abuse?: No - Immunizations Immunizations are current?: Yes - POLST Patient has POLST: No PD ED PE NORMAL - Vitals Vital signs reviewed: Yes (hypertensive ) - General General: Alert and oriented X 3, No acute distress, Well developed/nourished - HEENT HEENT: Atraumatic, PERRL - Respiratory Respiratory: No respiratory distress - Back Back: No CVA TTP, No spinal TTP - Derm Derm: Normal color, Warm and dry, Other (over the left forearm where the new tatoo is placed there are multiple small erythematous papules without drainage. The tatoo itself does not appear to be involved. ) Results - Vitals Vitals: Vital Signs - 24 hr 05/04/18 05/04/18 18:05 20:11 Temperature 36.8 C 36.7 C Heart Rate 76 75 Respiratory 20 18 Rate Blood Pressure 173/87 H 160/81 H O2 Saturation 97 96 Oxygen O2 Source Room air PD MEDICAL DECISION MAKING - ED course Complexity details: considered differential, d/w patient ED course: 52-year-old male with a rash to his left forearm appears to have a superficial infection that does not appear to be involving the tattoo itself. We will place him on some . - Sepsis Event Vital Signs: Vital Signs - 24 hr 05/04/18 05/04/18 18:05 20:11 Temperature 36.8 C 36.7 C Heart Rate 76 75 Respiratory 20 18 Rate Blood Pressure 173/87 H 160/81 H O2 Saturation 97 96 Oxygen O2 Source Room air Departure - Departure Disposition: 01 Home, Self Care Clinical Impression: Skin infection Condition: Stable Instructions: ED Staph Infec Abx Tx Only Follow-Up: JENNY CRANE [Physician No Access] - Prescriptions: Sulfamethoxazole/Trimethoprim [Sulfamethoxazole-Tmp Ds Tablet] 1 each PO BID # 14 tablet
[2018-05-04 21:21] VITALS: BP 168/90
[2018-05-04] MEDS: SULFAM/TRIM 800/160 Prepack 2 PO ONE (21:24)
== END 2018-05-04 21:25 | disposition home or self-care (01) ==
LOC: ED 18:00
DX: L08.9 Local infection of the skin and subcutaneous tissue, unspecified (principal)
CPT/HCPCS: 99283

== ENCOUNTER 2018-05-13 10:04 | Emergency (ER) | payer MEDICAID ==
[2018-05-13] MEDS ORDERED: traMADol 50 MG TABLET PO STA (10:46)
[2018-05-13] MEDS ORDERED: ceFAZolin 1 GM VIAL IM STA (10:46)
--- NOTE | 2018-05-13 12:21 | XRAY Report ---
Procedure Date: 05/13/2018 Accession Number: [id number] / [id number] Procedure: XR - Foot 3 View RT CPT Code: FULL RESULT: EXAM: RIGHT FOOT RADIOGRAPHY EXAM DATE: 05/13/2018 11:47 AM. CLINICAL HISTORY: Pain/swelling. Ulcer on the plantar surface of the right great toe. Diabetes mellitus. COMPARISON: MRI 10/21/2016, radiographs 10/05/2016. TECHNIQUE: 3 views. FINDINGS: Bones and joints: The patient is status post amputation at the shaft of the proximal phalanx of the right great toe. No cortical erosion or periosteal reaction is identified at the great toe or first metatarsal. New since 2016 and 2015, there is a fracture deformity at the base of the middle phalanx of the right second toe associated with new degenerative osteophyte formation at the second PIP joint. Soft Tissues: Soft tissue swelling over the lateral-plantar aspect of the fifth metatarsal phalangeal joint. No milvia soft tissue gas. IMPRESSION: 1. Amputation at the shaft of the proximal phalanx of the right great toe without evidence of active osteomyelitis. 2. Chronic-appearing fracture deformity at the right second middle phalanx and PIP joint, new since 2016. 3. Soft tissue swelling over the lateral-plantar aspect of the fifth MTP joint without underlying osseous or articular abnormality. RADIA
--- NOTE | 2018-05-13 12:54 | ED Physician Documentation ---
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 Review of Systems Constitutional: denies: Fever Musculoskeletal: reports: Extremity pain PD PAST MEDICAL HISTORY - Past Medical History Cardiovascular: None Respiratory: None Neuro: None Endocrine/Autoimmune: Type 2 diabetes GI: None : None HEENT: None Psych: None Musculoskeletal: None Derm: None - Past Surgical History Past Surgical History: Yes General: Appendectomy Ortho: Other - Present Medications Home Medications: Ambulatory Orders Medication Instructions Recorded Confirmed Insulin Glargine,Hum.rec.anlog 30 units SQ QPM 03/07/15 07/31/17 [Lantus Solostar] Gabapentin 600 mg PO DAILY 03/11/16 07/31/17 Gabapentin 300 mg PO QPM 10/05/16 07/31/17 Sildenafil Citrate [Sildenafil] 20 mg PO QPM PRN 10/21/16 07/31/17 Atorvastatin Calcium 10 mg PO DAILY 07/31/17 07/31/17 Losartan Potassium 50 mg PO DAILY 07/31/17 07/31/17 Clindamycin [Cleocin] 300 mg PO Q6H 7 Days capsule 05/13/18 Liraglutide [Victoza 2-Florian] 05/13/18 diazePAM [Valium] 5 mg 05/13/18 traMADol [Ultram] 50 mg 05/13/18 - Allergies Allergies/Adverse Reactions: Allergies Allergy/AdvReac Type Severity Reaction Status Date / Time No Known Drug Allergies Allergy Verified 05/04/18 18:08 - Social History Does the pt smoke?: Yes Smoking Status: Current every day smoker Does the pt drink ETOH?: Yes Does the pt have substance abuse?: No - Immunizations Immunizations are current?: Yes - POLST Patient has POLST: No PD ED PE NORMAL - Vitals Vital signs reviewed: Yes - Cardiac Cardiac: RRR - Respiratory Respiratory: No respiratory distress, Clear bilaterally - Extremities Extremities: Other (R foot cracked callous under th MTP jt with surrounding erythema and TTP and swelling, no crepitus and no necrosis) Results - Vitals Vitals: Vital Signs - 24 hr 05/13/18 10:20 Temperature 37.2 C Heart Rate 83 Respiratory 18 Rate Blood Pressure 189/93 H O2 Saturation 99 Oxygen O2 Source Room air - Labs Labs: Laboratory Tests 05/13/18 10:42 POC Whole Bld Glucose 224 H - Rads (name of study) foot Radiology: See rad report (no FB, no subcut air) PD MEDICAL DECISION MAKING - ED course ED course: MSE provided diabetic foot infection prior amputations, prior outpt oral ab failures suspect pt will end up needing IV ab again but will try outpt with close fup gave ancef IM will dc on clinda and have pt return to see me tomorrow - if worse / not improving will admit - Sepsis Event Vital Signs: Vital Signs - 24 hr 05/13/18 10:20 Temperature 37.2 C Heart Rate 83 Respiratory 18 Rate Blood Pressure 189/93 H O2 Saturation 99 Oxygen O2 Source Room air Departure - Departure Disposition: Home, Self Care Clinical Impression: Foot infection Condition: Good Instructions: ED Infec Skin Cellulitis Prescriptions: Clindamycin [Cleocin] 300 mg PO Q6H 7 Days capsule Comments: The xray is fine - no foreign body and no evidence of bone infection or gas in the tissues You very well may end up needing to be admitted for IV antibiotics - do not want you to have more amputations. But first we should try treating this as an outpatient We gave you an antibiotic shot in the ER and I have prescribed strong oral antibiotics that will cover a variety of bacteria for you to take at home Return to see me tomorrow morning in the ER - if you are not improving we will admit you for IV antibiotics then Tramadol for the pain Keep the foot clean Forms: Activity restrictions
[2018-05-13 13:16] VITALS: BP 164/94
== END 2018-05-13 13:26 | disposition home or self-care (01) ==
LOC: ED 10:04
DX: L08.9 Local infection of the skin and subcutaneous tissue, unspecified (principal); E11.40 Type 2 diabetes mellitus with diabetic neuropathy, unspecified; Z79.4 Long term (current) use of insulin; F17.200 Nicotine dependence, unspecified, uncomplicated; Z89.411 Acquired absence of right great toe
CPT/HCPCS: 73630; 96372; 99283; A9270

== ENCOUNTER 2018-05-14 07:57 | Inpatient (IN) | payer MEDICAID ==
[2018-05-14 09:08] LABS: BASOPHILS # (AUTO) 0.1 10^3/uL (0.0-0.1); BASOPHILS % (AUTO) 0.7 %; EOSINOPHILS # (AUTO) 0.4 10^3/uL (0.0-0.7); EOSINOPHILS % (AUTO) 3.7 %; HGB - HEMOGLOBIN 16.7 g/dL (14.0-18.0); LYMPHOCYTES # (AUTO) 1.3 10^3/uL (1.5-3.5); LYMPHOCYTES % (AUTO) 13.2 %; MEAN CORPUSCULAR HEMOGLOBIN 32.7 pg (27.0-31.0); MEAN CORPUSCULAR HGB CONC 34.5 g/dL (32.0-36.0); MEAN PLATELET VOLUME 8.7 fL (7.4-11.4); MONOCYTES # (AUTO) 1.2 10^3/uL (0.0-1.0); MONOCYTES % (AUTO) 11.9 %; NEUTROPHILS # (AUTO) 6.9 10^3/uL (1.5-6.6); NEUTROPHILS % (AUTO) 70.5 %; PLT - PLATELET COUNT 240 10^3/uL (130-450); RED BLOOD COUNT 5.09 10^6/uL (4.70-6.10); RED CELL DISTRIBUTION WIDTH 12.9 % (12.0-15.0); WHITE BLOOD COUNT 9.8 x10^3/uL (4.8-10.8)
[2018-05-14 09:12] LABS: CALCIUM 8.8 mg/dL (8.5-10.3); CREATININE 0.7 mg/dL (0.6-1.2)
--- NOTE | 2018-05-14 09:24 | ED Physician Documentation ---
History of Present Illness - Stated complaint Stated Complaint: R FOOT PX - Additonal information Additional information: hx from pt 52 male diabetic prior foot infections req amputation now with a right foot infection - seems to be centered very a callous under his 5th MTP that has cracked open xray yesterday shows no FB, no subcut air, no bone infection tried oral clinda and next day fup he filled and took the clinda the pain persists no fever Review of Systems Constitutional: denies: Fever Cardiac: denies: Chest pain / pressure Respiratory: denies: Dyspnea PD PAST MEDICAL HISTORY - Past Medical History Cardiovascular: Hypertension, High cholesterol Respiratory: None Neuro: None Endocrine/Autoimmune: Type 2 diabetes GI: None : None HEENT: None Psych: None Musculoskeletal: None Derm: None - Past Surgical History Past Surgical History: Yes General: Appendectomy Ortho: Other - Present Medications Home Medications: Ambulatory Orders Medication Instructions Recorded Confirmed Insulin Glargine,Hum.rec.anlog 30 units SQ QPM 03/07/15 05/14/18 [Lantus Solostar] Gabapentin 1,200 - 1,500 mg PO DAILY 10/05/16 05/14/18 Sildenafil Citrate [Sildenafil] 20 mg PO DAILY PRN 10/21/16 05/14/18 Atorvastatin Calcium 10 mg PO DAILY 07/31/17 05/14/18 Losartan Potassium 50 mg PO DAILY 07/31/17 07/31/17 Liraglutide [Victoza 2-Florian] 1.2 mg SUBQ DAILY 05/13/18 05/14/18 diazePAM [Valium] 5 mg PO Q6H PRN 05/13/18 05/14/18 traMADol [Ultram] 50 - 100 mg PO DAILY PRN 05/13/18 05/14/18 - Allergies Allergies/Adverse Reactions: Allergies Allergy/AdvReac Type Severity Reaction Status Date / Time No Known Drug Allergies Allergy Verified 05/14/18 08:27 - Social History Does the pt smoke?: Yes Smoking Status: Light tobacco smoker Does the pt drink ETOH?: Yes Does the pt have substance abuse?: No - Immunizations Immunizations are current?: Yes - POLST Patient has POLST: No PD ED PE NORMAL - Vitals Vital signs reviewed: Yes - General General: Alert and oriented X 3 - Neck Neck: Supple, no meningeal sign - Cardiac Cardiac: RRR - Respiratory Respiratory: No respiratory distress, Clear bilaterally - Extremities Extremities: Other (R foot - still TTP and now erythema has extended along lateral margin of foot another inch or two compared to yesterday, dec sensation c/w neuropathy, good pulse) Results - Vitals Vitals: Vital Signs - 24 hr 05/14/18 08:25 Temperature 36.6 C Heart Rate 70 Respiratory 20 Rate Blood Pressure 140/91 H O2 Saturation 99 Oxygen O2 Source Room air - Labs Labs: Laboratory Tests 05/14/18 05/14/18 05/14/18 08:55 08:55 08:57 WBC 9.8 RBC 5.09 Hgb 16.7 Hct 48.4 MCV 95.0 H MCH 32.7 H MCHC 34.5 RDW 12.9 Plt Count 240 MPV 8.7 Neut # (Auto) 6.9 H Lymph # (Auto) 1.3 L Glades # (Auto) 1.2 H Eos # (Auto) 0.4 Baso # (Auto) 0.1 Absolute Nucleated RBC 0.00 Nucleated RBC % 0.0 Sodium 135 Potassium 4.0 Chloride 100 L Carbon Dioxide 30 Anion Gap 5.0 L BUN 11 Creatinine 0.7 Estimated GFR (MDRD) 118 Glucose 203 H Lactic Acid 1.3 Calcium 8.8 PD MEDICAL DECISION MAKING - ED course ED course: failed outpt ab will admit spoke to hospitalist at 0920 defer ab choice to admitting service gave pt tramadol and nicotine patch - Sepsis Event Vital Signs: Vital Signs - 24 hr 05/14/18 08:25 Temperature 36.6 C Heart Rate 70 Respiratory 20 Rate Blood Pressure 140/91 H O2 Saturation 99 Oxygen O2 Source Room air Departure - Departure Disposition: [facility] DC/Xfer Clinical Impression: Cellulitis in diabetic foot
[2018-05-14] MEDS ORDERED: traMADol 50 MG TABLET PO STA (09:28)
[2018-05-14] MEDS ORDERED: NICOTINE 21 MG PATCH TOP STA (09:28)
[2018-05-14] MEDS ORDERED: SODIUM CHLORIDE 0.9% 1,000 ML IV ONE (11:00)
[2018-05-14] MEDS: SODIUM CHLORIDE FLUSH 0.9% 10 ML SYRINGE IVP SCH ×4 (11:14→23:33)
[2018-05-14] MEDS: MORPHINE 2 MG/ML SYRINGE IVP PRN ×3 (11:14→21:17)
[2018-05-14] MEDS: IBUPROFEN 400 MG TABLET PO PRN (11:15)
[2018-05-14] MEDS: NS W/20 MEQ KCL 1,000 ML IV SCH ×2 (11:17→21:18)
[2018-05-14 11:37] LABS: HB2 TOTAL 18.3 g/dL; HEMOGLOBIN A1C 1.35 g/dL; HEMOGLOBIN A1C % 8.9 % (4.6-6.2)
[2018-05-14] MEDS: cefTRIAXone 2 GM in SODIUM CHLORIDE 0.9% MINIBAG 100 ML IV SCH (11:45)
[2018-05-14] MEDS: INSULIN ASPART 300 UNIT/3 ML PEN SUBQ SCH ×3 (11:54→21:28)
--- NOTE | 2018-05-14 13:47 | HISTORY & PHYSICAL EXAMINATION ---
Chief Complaint - Chief Complaint Chief Complaint: Right foot pain History of Present Illness - Admitted From Admitted From:: Home - History Obtained From History obtained from: Patient, ED physician - History of Present Illness HPI Comment/Other: Mr. Elijah Ferreira is a very pleasant 52-year-old gentleman with a history of type 2 diabetes mellitus which is somewhat brittle in nature and who is status post 3 toes partially amputated for cellulitis of the feet. He came to the [facility] emergency department yesterday with right foot pain and was found to have an area of infection on his right foot. He was placed on clindamycin and sent home and told to return today for a recheck. 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 Because of the patient's past medical history and current condition it was felt to be prudent to bring him into the hospital for IV antibiotics. History - Past Medical History Cardiovascular: reports: Hypertension, High cholesterol Respiratory: reports: None Neuro: reports: None Endocrine/Autoimmune: reports: Type 2 diabetes GI: reports: None : reports: None HEENT: reports: None Psych: reports: None Musculoskeletal: reports: None Derm: reports: None MRSA Hx?: No - Past Surgical History General: reports: Appendectomy Ortho: reports: Amputation (Full and partial amputation of 3 toes, the right great toe, and left second and fifth toes), Other - Family & Social History Family History: Mother: , Alzheimer's Disease, Father: , CAD, Diabetes, Type 2, Hyperlipidemia, Hypertension, MD, Other family: CVA/TIA Living arrangement: At home Living Situation: Other Social History Notes: The patient rents a room from a couple. - Substance History Use: Uses substance without health or social issues: Alcohol Tobacco Details: Cigarettes (The patient smokes between half a pack and three quarters a pack of cigarettes a day. He was counseled on the dangers of smoking and how in light of his vascular issues it is the last thing he should be doing. He says he is trying to quit.) - POLST Patient has POLST: No POLST Status: Full Code Meds/Allgy - Home Medications Home Medications: Ambulatory Orders Medication Instructions Recorded Confirmed Insulin Glargine,Hum.rec.anlog 30 units SQ QPM 03/07/15 05/14/18 [Lantus Solostar] Gabapentin 1,200 - 1,500 mg PO DAILY 10/05/16 05/14/18 Sildenafil Citrate [Sildenafil] 20 mg PO DAILY PRN 10/21/16 05/14/18 Atorvastatin Calcium 10 mg PO DAILY 07/31/17 05/14/18 Losartan Potassium 100 mg PO DAILY 07/31/17 05/14/18 Liraglutide [Victoza 2-Florian] 1.2 mg SUBQ DAILY 05/13/18 05/14/18 diazePAM [Valium] 5 mg PO Q6H PRN 05/13/18 05/14/18 traMADol [Ultram] 50 - 100 mg PO DAILY PRN 05/13/18 05/14/18 Clindamycin HCl [Clindamycin 300MG 300 mg PO [id number] 05/14/18 05/14/18 CAP] - Allergies Allergies/Adverse Reactions: Allergies Allergy/AdvReac Type Severity Reaction Status Date / Time No Known Drug Allergies Allergy Verified 05/14/18 08:27 Review of Systems - Constitutional Constitutional: denies: Fatigue, Fever, Chills, Malaise, Weakness, Night sweats - Eyes Eyes: denies: Pain, Irritation, Amaurosis, Blurred vision, Dipolpia - Ears, Nose & Throat Ears, Nose & Throat: denies: Ear pain, Hearing loss, Hearing aids, Tinnitus, Vertigo, Nasal pain, Nasal discharge, Nosebleeds - Cardiovascular Cariovascular: denies: Irregular heart rate, Palpitations, Chest pain, Edema - Respiratory Respiratory: denies: Cough, Sputum production, Wheezing, Snoring, Hemoptysis, Orthopnea - Gastrointestinal Gastrointestinal: denies: Abdominal pain, Abdominal distention, Constipation, Diarrhea, Change in bowel habits, Rectal bleeding - Genitourinary Genitourinary: denies: Dysuria, Frequency, Urgency, Hematuria - Musculoskeletal Musculoskeletal: reports: Other (R foot pain). denies: Muscle pain, Back pain, Muscle aches, Stiffness - Integumentary Integumentary: denies: Rash, Pruritis, Lesions, Dryness - Neurological Neurological: denies: General weakness, Focal weakness, Headache, Dizziness - Psychiatric Psychiatric: denies: Depression, Anxiety, Suicidal - Endocrine Endocrine: denies: Polyuria, Polydypsia, Polyphagia - Hematologic/Lymphatic Hematologic/Lymphatic: denies: Anemia, Bruising, Petechiae, Lymphadenopathy - All Other Systems All Other Systems: reports: Reviewed and negative Exam - Vital Signs Reviewed Vital Signs: Yes Vital Signs: Vital Signs x48h Temp Pulse Pulse Resp BP BP Pulse Ox 05/14/18 11:05 36.4 C L 72 17 167/94 H 98 05/14/18 10:46 112 H 104/90 H 05/14/18 10:42 65 14 159/94 H 99 - Physical Exam General Appearance: positive: No acute distress, Alert Eyes Bilateral: positive: Normal inspection, PERRL, EOMI ENT: positive: ENT inspection nml, Pharynx nml, No signs of dehydration Neck: positive: Nml inspection, Thyroid nml, No JVD, Trachea midline. negative : Thyromegaly Respiratory: positive: Chest non-tender, No respiratory distress, Breath sounds nml. negative: Wheezes, Rales, Rhonchi Cardiovascular: positive: Regular rate & rhythm, No murmur, No gallop Peripheral Pulses: positive: 1+ Abdomen: positive: Non-tender, No organomegaly, Nml bowel sounds, No distention. negative: Guarding, Rebound Back: positive: Nml inspection. negative: CVA tenderness (R), CVA tenderness (L ) Skin: positive: Color nml, No rash, Warm, Dry, Other (Correct area to the sole of the right foot with serous drainage). negative: Cyanosis Extremities: positive: Non-tender, Full ROM, Nml appearance, No pedal edema Neurologic/Psychiatric: positive: Oriented x3, CN's nml (2-12), Motor nml, Sensation nml, Mood/affect nml Conclusion/Plan - Problem List (1) Cellulitis in diabetic foot Conclusion/Plan: It is not clear whether or not the patient failed outpatient therapy. There is no significant erythema to the foot and he says that his foot was "twice as swollen yesterday". It is also unclear as to whether the patient responded to a shot of Rocephin that he received in the ED yesterday to the clindamycin. We will admit him to medical surgical bed in place him on Rocephin 2 g daily and monitor his lab studies. He has not mounted an elevated leukocyte count thus far. (2) Type 2 diabetes mellitus Conclusion/Plan: The patient has a history of type 2 diabetes mellitus and takes Lantus and Victoza. Despite this he has very poor glycemic control with a glycolated hemoglobin this morning at 8.9% which estimates his average glucose level of 209. We are currently covering him with a sliding scale and recommend that he tries to obtain tighter glycemic control by testing himself more often during the day or administering insulin with meals. He has peripheral neuropathy and has lost toes due to his disease. (3) Hyperlipidemia Conclusion/Plan: The patient has a history of hyperlipidemia. The last time we checked his cholesterol was in 2016. He is being followed by his primary care physician at this time. We will continue the patient on his atorvastatin 10 mg tablets which he takes at home. (4) HTN (hypertension) Conclusion/Plan: The patient's blood pressure has been elevated since he was admitted and he takes losartan at home. We will restart this and also add a diuretic. We will monitor the blood pressures closely. - Lab Results Lab results reviewed: Yes Fish Bones: 05/14/18 08:55 05/14/18 08:55 - Diagnostic Imaging Results Diagnostic Imaging Results: positive: Final report reviewed Diagnostic Imaging Results Comments: EXAM: RIGHT FOOT RADIOGRAPHY EXAM DATE: 05/13/2018 11:47 AM. CLINICAL HISTORY: Pain/swelling. Ulcer on the plantar surface of the right great toe. Diabetes mellitus. COMPARISON: MRI 10/21/2016, radiographs 10/05/2016. TECHNIQUE: 3 views. FINDINGS: Bones and joints: The patient is status post amputation at the shaft of the proximal phalanx of the right great toe. No cortical erosion or periosteal reaction is identified at the great toe or first metatarsal. New since 2016 and 2015, there is a fracture deformity at the base of the middle phalanx of the right second toe associated with new degenerative osteophyte formation at the second PIP joint. Soft Tissues: Soft tissue swelling over the lateral-plantar aspect of the fifth metatarsal phalangeal joint. No milvia soft tissue gas. IMPRESSION: 1. Amputation at the shaft of the proximal phalanx of the right great toe without evidence of active osteomyelitis. 2. Chronic-appearing fracture deformity at the right second middle phalanx and PIP joint, new since 2016. 3. Soft tissue swelling over the lateral-plantar aspect of the fifth MTP joint without underlying osseous or articular abnormality EXAM: [id number] US/WILMA ([id number]) ANKLE BRACHIAL INDEX: 05/02/2017 CLINICAL INDICATION: Osteomyelitis, preop evaluation. TECHNIQUE: Real-time sonographic vascular imaging was performed by the floor broker through the extremities utilizing both color-flow and Doppler flow analysis. Multiple senior account representative static images were saved for review. RIGHT SIDE SITE [employer] 64 triphasic DPA 76 triphasic LEFT SIDE SITE [employer] 88 triphasic DPA 144 monophasic TECHNIQUE: Real-time scanning was performed. SYSTOLIC PRESSURES RIGHT LEFT BRACHIAL ARTERY 153 [id number] POSTERIOR TIBIAL ARTERY 172/76 172/84 ANTERIOR TIBIAL ARTERY --- --- PERONEAL ARTERY --- --- ANKLE/ARM INDEX 1.12 1.24 FINDINGS: ABIs are normal, with the right measuring 1.12 and the left measuring 1.24. IMPRESSION: NORMAL ABIs. Core Measures - Anticipated LOS I expect patient to be DC'd or transferred within 96 hours.: Yes - DVT/VTE - Prophylaxis VTE/DVT Device ordered at admit?: Yes
[2018-05-14] MEDS: hydroCHLOROthiazide 25 MG TABLET PO SCH (14:20)
[2018-05-14] MEDS: CLINDAMYCIN 150 MG CAPSULE PO SCH ×3 (14:20→21:17)
[2018-05-14] MEDS: GABAPENTIN 300 MG CAPSULE PO SCH ×2 (16:09→21:17)
[2018-05-14] MEDS ORDERED: INSULIN GLARGINE 300 UNIT/3 ML PEN SUBQ SCH (21:00)
[2018-05-14] MEDS: INSULIN GLARGINE 300 UNIT/3 ML PEN SUBQ SCH (21:36)
[2018-05-14] MEDS ORDERED: TEMAZEPAM 15 MG CAPSULE PO PRN (21:38)
[2018-05-15] MEDS: MORPHINE 2 MG/ML SYRINGE IVP PRN (06:49)
[2018-05-15] MEDS: INSULIN ASPART 300 UNIT/3 ML PEN SUBQ SCH ×4 (07:47→20:46)
[2018-05-15] MEDS: SODIUM CHLORIDE FLUSH 0.9% 10 ML SYRINGE IVP SCH ×2 (07:50→16:41)
[2018-05-15] MEDS: hydroCHLOROthiazide 25 MG TABLET PO SCH (08:06)
[2018-05-15] MEDS: LOSARTAN 50 MG TABLET PO SCH (08:06)
[2018-05-15] MEDS: GABAPENTIN 300 MG CAPSULE PO SCH ×4 (08:06→20:43)
[2018-05-15] MEDS: NS W/20 MEQ KCL 1,000 ML IV SCH ×2 (08:06→18:40)
[2018-05-15] MEDS: CLINDAMYCIN 150 MG CAPSULE PO SCH ×4 (08:07→20:43)
[2018-05-15] MEDS: POLYETHYLENE GLYCOL 3350 17 GM PACKET PO SCH (08:10)
[2018-05-15] MEDS: ATORVASTATIN 10 MG TABLET PO SCH (08:17)
[2018-05-15 09:15] LABS: HGB - HEMOGLOBIN 14.9 g/dL (14.0-18.0); MEAN CORPUSCULAR HEMOGLOBIN 32.6 pg (27.0-31.0); MEAN CORPUSCULAR HGB CONC 34.7 g/dL (32.0-36.0); MEAN CORPUSCULAR VOLUME 94.1 fL (80.0-94.0); MEAN PLATELET VOLUME 8.7 fL (7.4-11.4); RED BLOOD COUNT 4.58 10^6/uL (4.70-6.10); RED CELL DISTRIBUTION WIDTH 12.6 % (12.0-15.0); WHITE BLOOD COUNT 11.4 x10^3/uL (4.8-10.8)
[2018-05-15 09:24] LABS: CALCIUM 8.4 mg/dL (8.5-10.3); CREATININE 0.7 mg/dL (0.6-1.2)
[2018-05-15] MEDS: cefTRIAXone 2 GM in SODIUM CHLORIDE 0.9% MINIBAG 100 ML IV SCH (11:03)
--- NOTE | 2018-05-15 13:08 | PROVIDER PROGRESS NOTE ---
Subjective - Prog Note Date Prog Note Date: 05/15/18 Prog Note Time: 12:35 - Subjective Pt reports feeling: Improved Subjective: The patient says his foot feels much better. He has been able to walk on it and did note that later he saw some blood in his sock. He is requesting a nicotine patch for tobacco cravings. He denies any fevers or chills, shortness of breath or chest pain. Current Medications - Current Medications Current Medications: Active Medications Generic Name Dose Route Start Last Admin Trade Name Freq PRN Reason Stop Dose Admin Atorvastatin Calcium 10 mg 05/15/18 09:00 05/15/18 08:17 Lipitor PO 10 mg DAILY LILLIAN Administration Clindamycin HCl 300 mg 05/14/18 13:45 05/15/18 08:07 Cleocin PO 05/21/18 13:44 300 mg QID LILLIAN Administration Diazepam 5 mg 05/14/18 13:41 Valium PO Q8H PRN Spasms Gabapentin 300 mg 05/14/18 17:00 05/15/18 08:06 Neurontin PO 300 mg QID LILLIAN Administration Hydrochlorothiazide 25 mg 05/14/18 15:00 05/15/18 08:06 Hydrodiuril PO 25 mg DAILY LILLIAN Administration Potassium Chloride/Sodium Chloride 1,000 mls @ 100 mls/hr 05/14/18 11:00 12/28 08:06 Normal Saline 0.9% W/20 Meq Kcl IV 100 mls/hr .Q10H LILLIAN Administration Ceftriaxone Sodium 2 gm/ 100 mls @ 200 mls/hr 05/14/18 11:00 05/15/18 11:03 Sodium Chloride IV 200 mls/hr Q24H LILLIAN Administration Ibuprofen 400 mg 05/14/18 10:33 05/14/18 11:15 Motrin PO 400 mg Q4HR PRN Administration Pain 1 to 4 Insulin Aspart 1 - 5 unit 05/14/18 12:00 05/15/18 07:47 Novolog SUBQ Not Given 0800,1200,1700,2100 [facility] Protocol Insulin Glargine 30 unit 05/14/18 21:00 05/14/18 21:36 Lantus Solostar SUBQ Not Given QPM LILLIAN Losartan Potassium 100 mg 05/15/18 09:00 05/15/18 08:06 Cozaar PO 100 mg DAILY LILLIAN Administration Morphine Sulfate 2 mg 05/14/18 10:33 05/15/18 06:49 Morphine IVP 2 mg Q2H PRN Administration Pain 8 to 10 Nicotine 1 patch 05/15/18 12:00 Nicoderm TOP DAILY LILLIAN (Liraglutide [ 1.2 mg 05/15/18 09:00 05/15/18 08:08 Victoza 2-Florian] 1.2 SUBQ Not Given Mg) DAILY [facility] Polyethylene Glycol 17 gm 05/15/18 09:00 05/15/18 08:10 Miralax PO Not Given DAILY LILLIAN Sodium Chloride 10 ml 05/14/18 10:33 Normal Saline Flush 0.9% IVP PRN PRN NEEDED PER PROVIDER ORDERS Sodium Chloride 10 ml 05/14/18 17:00 05/15/18 07:50 Normal Saline Flush 0.9% IVP Not Given 0100,0900,1700 LILLIAN Temazepam 15 mg 05/14/18 21:38 05/14/18 21:46 Restoril PO 15 mg QPM PRN Administration Insomnia Insulin Glargine,Hum.rec.anlog [Lantus Solostar] 30 units SQ QPM 03/07/15 Gabapentin 1,200 - 1,500 mg PO DAILY 10/05/16 Sildenafil Citrate [Sildenafil] 20 mg PO DAILY PRN 10/21/16 Atorvastatin Calcium 10 mg PO DAILY 07/31/17 Losartan Potassium 100 mg PO DAILY 07/31/17 Liraglutide [Victoza 2-Florian] 1.2 mg SUBQ DAILY 05/13/18 diazePAM [Valium] 5 mg PO Q6H PRN 05/13/18 traMADol [Ultram] 50 - 100 mg PO DAILY PRN 05/13/18 Clindamycin HCl [Clindamycin 300MG CAP] 300 mg PO [id number] 05/14/18 Objective - Vital Signs/Intake & Output Reviewed Vital Signs: Yes Vital Signs: Vital Signs x48h Temp Pulse Resp BP Pulse Ox 05/15/18 08:00 36.4 C L 64 18 152/83 H 96 Intake & Output: Intake & Output 05/12/18 05/13/18 05/14/18 05/15/18 23:59 23:59 23:59 23:59 Intake Total 2516 3200 Balance 2516 3200 - Objective General Appearance: positive: No acute distress, Alert Eyes Bilateral: positive: Normal inspection, PERRL, EOMI, No lid inflammation, Conjunctivae nml, No scleral icterus ENT: positive: ENT inspection nml, Pharynx nml, No signs of dehydration. negative: Purulent nasal drainage Neck: positive: Nml inspection, Thyroid nml, No JVD, Trachea midline. negative : Thyromegaly Respiratory: positive: Chest non-tender, No respiratory distress, Breath sounds nml. negative: Wheezes, Rales, Rhonchi Cardiovascular: positive: Regular rate & rhythm, No murmur, No gallop Abdomen: positive: Non-tender, No organomegaly, Nml bowel sounds, No distention. negative: Guarding, Rebound Back: positive: Nml inspection. negative: CVA tenderness (R), CVA tenderness (L ) Skin: positive: Color nml, No rash, Warm, Dry. negative: Cyanosis Extremities: positive: Non-tender, Full ROM, No pedal edema, Other (Patient has 3 full and partial toe amputations on his feet bilaterally). negative: Joint swelling Neurologic/Psychiatric: positive: Oriented x3, CN's nml (2-12), Motor nml, Sensation nml, Mood/affect nml - Lab Results Fish Bones: 05/15/18 09:00 05/15/18 09:00 Other Labs: Lab Results x24hrs 05/15/18 05/15/18 05/15/18 Range/Units 11:23 09:00 09:00 WBC 11.4 H (4.8-10.8) x10^3/uL RBC 4.58 L (4.70-6.10) 10^6/uL Hgb 14.9 (14.0-18.0) g/dL Hct 43.1 (42.0-52.0) % MCV 94.1 H (80.0-94.0) fL MCH 32.6 H (27.0-31.0) pg MCHC 34.7 (32.0-36.0) g/dL RDW 12.6 (12.0-15.0) % Plt Count 210 (130-450) 10^3/uL MPV 8.7 (7.4-11.4) fL Sodium 133 L (135-145) mmol/L Potassium 4.4 (3.5-5.0) mmol/L Chloride 101 (101-111) mmol/L Carbon Dioxide 29 (21-32) mmol/L Anion Gap 3.0 L (6-13) BUN 9 (6-20) mg/dL Creatinine 0.7 (0.6-1.2) mg/dL Estimated GFR (MDRD) 118 (>89) Glucose 201 H (70-100) mg/dL POC Whole Bld Glucose 117 H (70 - 100) mg/dL Calcium 8.4 L (8.5-10.3) mg/dL 05/15/18 05/14/18 05/14/18 Range/Units 07:30 20:59 16:18 WBC (4.8-10.8) x10^3/uL RBC (4.70-6.10) 10^6/uL Hgb (14.0-18.0) g/dL Hct (42.0-52.0) % MCV (80.0-94.0) fL MCH (27.0-31.0) pg MCHC (32.0-36.0) g/dL RDW (12.0-15.0) % Plt Count (130-450) 10^3/uL MPV (7.4-11.4) fL Sodium (135-145) mmol/L Potassium (3.5-5.0) mmol/L Chloride (101-111) mmol/L Carbon Dioxide (21-32) mmol/L Anion Gap (6-13) BUN (6-20) mg/dL Creatinine (0.6-1.2) mg/dL Estimated GFR (MDRD) (>89) Glucose (70-100) mg/dL POC Whole Bld Glucose 103 H 206 H 180 H (70 - 100) mg/dL Calcium (8.5-10.3) mg/dL ABX Reporting Has patient been on IV antibiotics over the past 48 hours?: Yes Assessment/Plan - Problem List (1) Cellulitis in diabetic foot Impression: We are treating the patient with Rocephin and he says that his foot feels much better today. There is less pain and hardly any swelling. He did note some blood on his sock but otherwise has no other complaints. We have ordered a wound care consult. Of note is that it is not clear whether or not the patient failed outpatient therapy. There was no significant erythema to the foot on admission and the patient said that his foot was "twice as swollen yesterday". It is also unclear as to whether the patient responded to a shot of Rocephin that he received in the ED yesterday to the clindamycin. His leukocyte count went up a little today, but again, the patient is improved clinically. (2) Type 2 diabetes mellitus Impression: The patient has a history of type 2 diabetes mellitus and takes Lantus and Victoza. Despite this he has very poor glycemic control with a glycolated hemoglobin this morning at 8.9% which estimates his average glucose level of 209. We are currently covering him with a sliding scale and recommend that he tries to obtain tighter glycemic control by testing himself more often during the day or administering insulin with meals. He has peripheral neuropathy and has lost toes due to his disease. (3) Hyperlipidemia Impression: The patient has a history of hyperlipidemia. The last time we checked his cholesterol was in 2016. He is being followed by his primary care physician at this time. We will continue the patient on his atorvastatin 10 mg tablets which he takes at home. (4) HTN (hypertension) Impression: The patient's blood pressure has been elevated since he was admitted and he takes losartan at home. We restarted his losartan and added hydrochlorothiazide and his blood pressure at this time is 134/81. I will continue to monitor.
[2018-05-15] MEDS: NICOTINE 14 MG PATCH TOP SCH (13:47)
[2018-05-15] MEDS ORDERED: LIDOCAINE JELLY 2% 5 ML TUBE TOP SCH (16:06)
[2018-05-15] MEDS: HYDROmorphone 2 MG/ML VIAL IVP PRN ×2 (16:41→18:39)
--- NOTE | 2018-05-15 19:16 | MRI Report ---
Procedure Date: 05/15/2018 Accession Number: [id number] / [id number] Procedure: MRI - Foot RT W/O CPT Code: FULL RESULT: EXAM: RIGHT FOREFOOT MRI WITHOUT CONTRAST EXAM DATE: 05/15/2018 06:28 PM. CLINICAL HISTORY: Rule out osteo. COMPARISON: Foot 3 view right 05/13/2018 11:36 AM. TECHNIQUE: Multiplanar, multisequence T1-weighted and fluid-sensitive sequences of the forefoot without contrast. Other: None. FINDINGS: Bones: There are no foci of marrow edema to suggest osteomyelitis. There is osteoarthritis of the first metatarsophalangeal joint with subchondral edema. Joints: Moderate osteoarthritis of the first metatarsophalangeal joint. Articular Cartilage: See above. Ligaments: The visualized collateral ligaments are intact. Tendons: The flexor and extensor tendons are unremarkable. Musculature: Mild fatty atrophy. Other: There is subcutaneous edema with edema of the soft tissues between the metatarsals, which may indicate inflammation. IMPRESSION: 1. No evidence of osteomyelitis. 2. Osteoarthritis of the first metatarsophalangeal joint with marrow edema of the first metatarsal head. 3. Fatty atrophy of the intrinsic muscles. 4. Subcutaneous edema, which may indicate inflammation. RADIA MUSCULOSKELETAL RADIOLOGY SECTION
[2018-05-15] MEDS ORDERED: diphenhydrAMINE 25 MG CAPSULE PO PRN (19:55)
[2018-05-15] MEDS: INSULIN GLARGINE 300 UNIT/3 ML PEN SUBQ SCH (20:44)
[2018-05-15] MEDS: diazePAM 5 MG TABLET PO PRN (23:08)
[2018-05-16] MEDS: NS W/20 MEQ KCL 1,000 ML IV SCH (00:14)
[2018-05-16] MEDS: SODIUM CHLORIDE FLUSH 0.9% 10 ML SYRINGE IVP SCH ×4 (00:17→23:36)
[2018-05-16 06:22] LABS: HGB - HEMOGLOBIN 15.3 g/dL (14.0-18.0); MEAN CORPUSCULAR HGB CONC 34.7 g/dL (32.0-36.0); MEAN CORPUSCULAR VOLUME 94.9 fL (80.0-94.0); MEAN PLATELET VOLUME 8.6 fL (7.4-11.4); RED BLOOD COUNT 4.63 10^6/uL (4.70-6.10); RED CELL DISTRIBUTION WIDTH 12.8 % (12.0-15.0); WHITE BLOOD COUNT 7.2 x10^3/uL (4.8-10.8)
[2018-05-16 06:31] LABS: CALCIUM 8.9 mg/dL (8.5-10.3); CREATININE 0.7 mg/dL (0.6-1.2)
[2018-05-16] MEDS: INSULIN ASPART 300 UNIT/3 ML PEN SUBQ SCH ×4 (07:55→20:35)
[2018-05-16] MEDS: ATORVASTATIN 10 MG TABLET PO SCH (08:21)
[2018-05-16] MEDS: CLINDAMYCIN 150 MG CAPSULE PO SCH ×4 (08:21→20:32)
[2018-05-16] MEDS: LOSARTAN 50 MG TABLET PO SCH (08:21)
[2018-05-16] MEDS: IBUPROFEN 400 MG TABLET PO PRN (08:21)
[2018-05-16] MEDS: POLYETHYLENE GLYCOL 3350 17 GM PACKET PO SCH (08:22)
[2018-05-16] MEDS: NICOTINE 14 MG PATCH TOP SCH (08:22)
[2018-05-16] MEDS: GABAPENTIN 300 MG CAPSULE PO SCH ×4 (08:22→20:33)
[2018-05-16] MEDS: hydroCHLOROthiazide 25 MG TABLET PO SCH (08:22)
[2018-05-16] MEDS: cefTRIAXone 2 GM in SODIUM CHLORIDE 0.9% MINIBAG 100 ML IV SCH (11:05)
[2018-05-16] MEDS: SODIUM CHLORIDE FLUSH 0.9% 10 ML SYRINGE IVP PRN (11:51)
--- NOTE | 2018-05-16 15:17 | PROVIDER PROGRESS NOTE ---
Subjective - Prog Note Date Prog Note Date: 05/16/18 Prog Note Time: 13:00 - Subjective Pt reports feeling: Improved Subjective: The patient's pain is resolving in his foot, even though he had wound debridement yesterday. Swelling is resolved and there is no significant erythema. He denies any pain, shortness of breath, fevers or chills. Current Medications - Current Medications Current Medications: Active Medications Generic Name Dose Route Start Last Admin Trade Name Freq PRN Reason Stop Dose Admin Atorvastatin Calcium 10 mg 05/15/18 09:00 05/16/18 08:21 Lipitor PO 10 mg DAILY LILLIAN Administration Clindamycin HCl 300 mg 05/14/18 13:45 05/16/18 13:20 Cleocin PO 05/21/18 13:44 300 mg QID LILLIAN Administration Diazepam 5 mg 05/14/18 13:41 05/15/18 23:08 Valium PO 5 mg Q8H PRN Administration Spasms Diphenhydramine HCl 25 mg 05/15/18 19:55 05/15/18 20:43 Benadryl PO 25 mg Q4HR PRN Administration Allergy Symptoms Gabapentin 300 mg 05/14/18 17:00 05/16/18 13:20 Neurontin PO 300 mg QID LILLIAN Administration Hydrochlorothiazide 25 mg 05/14/18 15:00 05/16/18 08:22 Hydrodiuril PO 25 mg DAILY LILLIAN Administration Ceftriaxone Sodium 2 gm/ 100 mls @ 200 mls/hr 05/14/18 11:00 05/16/18 11:50 Sodium Chloride IV Infused Q24H LILLIAN Infusion Ibuprofen 400 mg 05/14/18 10:33 05/16/18 08:21 Motrin PO 400 mg Q4HR PRN Administration Pain 1 to 4 Insulin Aspart 1 - 5 unit 05/14/18 12:00 05/16/18 11:44 Novolog SUBQ 1 unit 0800,1200,1700,2100 LILLIAN Administration Protocol Insulin Glargine 30 unit 05/14/18 21:00 05/15/18 20:44 Lantus Solostar SUBQ 30 unit QPM LILLIAN Administration Losartan Potassium 100 mg 05/15/18 09:00 05/16/18 08:21 Cozaar PO 100 mg DAILY LILLIAN Administration Morphine Sulfate 2 mg 05/14/18 10:33 05/15/18 06:49 Morphine IVP 2 mg Q2H PRN Administration Pain 8 to 10 Nicotine 1 patch 05/15/18 12:00 05/16/18 08:22 Nicoderm TOP 1 patch DAILY LILLIAN Administration (Liraglutide [ 1.2 mg 05/15/18 09:00 05/16/18 07:57 Victoza 2-Florian] 1.2 SUBQ Not Given Mg) DAILY LILLIAN Polyethylene Glycol 17 gm 05/15/18 09:00 05/16/18 08:22 Miralax PO Not Given DAILY LILLIAN Sodium Chloride 10 ml 05/14/18 10:33 05/16/18 11:51 Normal Saline Flush 0.9% IVP 10 ml PRN PRN Administration NEEDED PER PROVIDER ORDERS Sodium Chloride 10 ml 05/14/18 17:00 05/16/18 08:23 Normal Saline Flush 0.9% IVP 10 ml 0100,0900,1700 LILLIAN Administration Temazepam 15 mg 05/14/18 21:38 05/14/18 21:46 Restoril PO 15 mg QPM PRN Administration Insomnia Insulin Glargine,Hum.rec.anlog [Lantus Solostar] 30 units SQ QPM 03/07/15 Gabapentin 1,200 - 1,500 mg PO DAILY 10/05/16 Sildenafil Citrate [Sildenafil] 20 mg PO DAILY PRN 10/21/16 Atorvastatin Calcium 10 mg PO DAILY 07/31/17 Losartan Potassium 100 mg PO DAILY 07/31/17 Liraglutide [Victoza 2-Florian] 1.2 mg SUBQ DAILY 05/13/18 diazePAM [Valium] 5 mg PO Q6H PRN 05/13/18 traMADol [Ultram] 50 - 100 mg PO DAILY PRN 05/13/18 Clindamycin HCl [Clindamycin 300MG CAP] 300 mg PO QIDX7D 05/14/18 Objective - Vital Signs/Intake & Output Reviewed Vital Signs: Yes Vital Signs: Vital Signs x48h Temp Pulse Resp BP Pulse Ox 05/16/18 07:30 36.4 C L 65 18 143/84 H 96 Intake & Output: Intake & Output 05/13/18 05/14/18 05/15/18 05/16/18 23:59 23:59 23:59 23:59 Intake Total 9991 5627.000 3370 Balance 2516 5627.000 3370 - Objective General Appearance: positive: No acute distress, Alert Eyes Bilateral: positive: Normal inspection, PERRL, EOMI, No lid inflammation, Conjunctivae nml, No scleral icterus ENT: positive: ENT inspection nml, Pharynx nml, No signs of dehydration Neck: positive: Nml inspection, Thyroid nml, No JVD, Trachea midline. negative : Thyromegaly Respiratory: positive: Chest non-tender, No respiratory distress, Breath sounds nml. negative: Wheezes, Rales, Rhonchi Cardiovascular: positive: Regular rate & rhythm, No murmur, No gallop Abdomen: positive: Non-tender, No organomegaly, Nml bowel sounds, No distention. negative: Guarding, Rebound Back: positive: Nml inspection. negative: CVA tenderness (R), CVA tenderness (L ) Skin: positive: Color nml, No rash, Warm, Dry, Other (Wound noted to right lateral sole of foot under the fifth metatarsal which was debrided yesterday). negative: Cyanosis Extremities: positive: Non-tender, Full ROM, Nml appearance, No pedal edema Neurologic/Psychiatric: positive: Oriented x3, CN's nml (2-12), Motor nml, Sensation nml, Mood/affect nml - Lab Results Fish Bones: 05/16/18 05:48 05/16/18 05:48 Other Labs: Lab Results x24hrs 05/16/18 05/16/18 05/16/18 Range/Units 11:27 07:22 05:48 WBC (4.8-10.8) x10^3/uL RBC (4.70-6.10) 10^6/uL Hgb (14.0-18.0) g/dL Hct (42.0-52.0) % MCV (80.0-94.0) fL MCH (27.0-31.0) pg MCHC (32.0-36.0) g/dL RDW (12.0-15.0) % Plt Count (130-450) 10^3/uL MPV (7.4-11.4) fL Sodium 136 (135-145) mmol/L Potassium 4.1 (3.5-5.0) mmol/L Chloride 102 (101-111) mmol/L Carbon Dioxide 26 (21-32) mmol/L Anion Gap 8.0 (6-13) BUN 14 (6-20) mg/dL Creatinine 0.7 (0.6-1.2) mg/dL Estimated GFR (MDRD) 118 (>89) Glucose 136 H (70-100) mg/dL POC Whole Bld Glucose 152 H 102 H (70 - 100) mg/dL Calcium 8.9 (8.5-10.3) mg/dL 05/16/18 05/15/18 05/15/18 Range/Units 05:48 20:29 16:26 WBC 7.2 (4.8-10.8) x10^3/uL RBC 4.63 L (4.70-6.10) 10^6/uL Hgb 15.3 (14.0-18.0) g/dL Hct 44.0 (42.0-52.0) % MCV 94.9 H (80.0-94.0) fL MCH 33.0 H (27.0-31.0) pg MCHC 34.7 (32.0-36.0) g/dL RDW 12.8 (12.0-15.0) % Plt Count 217 (130-450) 10^3/uL MPV 8.6 (7.4-11.4) fL Sodium (135-145) mmol/L Potassium (3.5-5.0) mmol/L Chloride (101-111) mmol/L Carbon Dioxide (21-32) mmol/L Anion Gap (6-13) BUN (6-20) mg/dL Creatinine (0.6-1.2) mg/dL Estimated GFR (MDRD) (>89) Glucose (70-100) mg/dL POC Whole Bld Glucose 182 H 214 H (70 - 100) mg/dL Calcium (8.5-10.3) mg/dL ABX Reporting Has patient been on IV antibiotics over the past 48 hours?: Yes Assessment/Plan - Problem List (1) Cellulitis in diabetic foot Impression: The patient responding well to the Rocephin. He has less swelling and no erythema. His white blood cell count has come down from 11.5-7.5, he has been afebrile, and there is less drainage. Patient's wound was seen by wound care and debrided yesterday. The MRI of the patient's foot shows no osteomyelitis.We will watch the patient for more night and plan on discharge tomorrow. (2) Type 2 diabetes mellitus Impression: The patient has a history of type 2 diabetes mellitus and takes Lantus and Victoza. Despite this he has very poor glycemic control with a glycolated hemoglobin this morning at 8.9% which estimates his average glucose level of 209. We are currently covering him with a sliding scale and recommend that he tries to obtain tighter glycemic control by testing himself more often during the day or administering insulin with meals. He has peripheral neuropathy and has lost toes due to his disease. (3) Hyperlipidemia Impression: The patient has a history of hyperlipidemia. The last time we checked his cholesterol was in 2016. He is being followed by his primary care physician at this time. We will continue the patient on his atorvastatin 10 mg tablets which he takes at home. (4) HTN (hypertension) Impression: The patient's blood pressure has been elevated since he was admitted and he takes losartan at home. We restarted his losartan and added hydrochlorothiazide and his blood pressure at this time is 143/84. I will start lisinopril.
[2018-05-16] MEDS: LISINOPRIL 20 MG TABLET PO SCH (16:43)
[2018-05-16] MEDS: INSULIN GLARGINE 300 UNIT/3 ML PEN SUBQ SCH (20:34)
[2018-05-16] MEDS: MORPHINE 2 MG/ML SYRINGE IVP PRN (20:40)
[2018-05-16] MEDS: diazePAM 5 MG TABLET PO PRN (23:36)
[2018-05-17] MEDS: MORPHINE 2 MG/ML SYRINGE IVP PRN ×3 (01:12→10:39)
[2018-05-17] MEDS: SODIUM CHLORIDE FLUSH 0.9% 10 ML SYRINGE IVP PRN ×2 (01:13→06:36)
[2018-05-17 06:26] LABS: HGB - HEMOGLOBIN 15.6 g/dL (14.0-18.0); MEAN CORPUSCULAR HGB CONC 34.6 g/dL (32.0-36.0); MEAN CORPUSCULAR VOLUME 95.5 fL (80.0-94.0); MEAN PLATELET VOLUME 8.6 fL (7.4-11.4); RED BLOOD COUNT 4.72 10^6/uL (4.70-6.10); RED CELL DISTRIBUTION WIDTH 12.7 % (12.0-15.0); WHITE BLOOD COUNT 8.9 x10^3/uL (4.8-10.8)
[2018-05-17 06:38] LABS: CALCIUM 8.9 mg/dL (8.5-10.3); CREATININE 0.9 mg/dL (0.6-1.2)
[2018-05-17] MEDS: INSULIN ASPART 300 UNIT/3 ML PEN SUBQ SCH ×2 (07:33→12:12)
[2018-05-17] MEDS: GABAPENTIN 300 MG CAPSULE PO SCH ×2 (08:40→12:54)
[2018-05-17] MEDS: CLINDAMYCIN 150 MG CAPSULE PO SCH ×2 (08:40→12:54)
[2018-05-17] MEDS: ATORVASTATIN 10 MG TABLET PO SCH (08:40)
[2018-05-17] MEDS: hydroCHLOROthiazide 25 MG TABLET PO SCH (08:41)
[2018-05-17] MEDS: LOSARTAN 50 MG TABLET PO SCH (08:41)
[2018-05-17] MEDS: IBUPROFEN 400 MG TABLET PO PRN (08:41)
[2018-05-17] MEDS: LISINOPRIL 20 MG TABLET PO SCH (08:41)
[2018-05-17] MEDS: NICOTINE 14 MG PATCH TOP SCH (08:42)
[2018-05-17] MEDS: POLYETHYLENE GLYCOL 3350 17 GM PACKET PO SCH (08:43)
[2018-05-17] MEDS: SODIUM CHLORIDE FLUSH 0.9% 10 ML SYRINGE IVP SCH (10:38)
[2018-05-17] MEDS: cefTRIAXone 2 GM in SODIUM CHLORIDE 0.9% MINIBAG 100 ML IV SCH (10:38)
--- NOTE | 2018-05-17 11:37 | Discharge Plan ---
Discharge Plan Disposition: Home, Self Care Prescriptions: Clindamycin [Cleocin] 300 mg PO QID #56 capsule Diet: Diabetic Activity Restrictions: Activity as Tolerated Shower Restrictions: No Driving Restrictions: No Weight Bearing: Partial Weight Instruction Topics: Diabetes Healthy Meals, Diabetes Carbs No Smoking: If you smoke, Please STOP! Call for help. Follow-up with: JENNY CRANE [Primary Care Provider] -
[2018-05-17 12:32] VITALS: BP 142/79
--- NOTE | 2018-05-19 07:25 | DISCHARGE SUMMARY ---
Discharge Summary Admit Date: 05/14/18 Discharge Date: 05/17/18 Discharging Provider: Jessica Patel DO Primary Care Provider: Tirso Tejada Code Status: Attempt Resuscitation Condition at Discharge: Good Discharge Disposition: Home, Self Care - DIAGNOSES Admission Diagnoses: 1. Cellulitis in the diabetic foot 2. Type 2 diabetes mellitus 3. Hyperlipidemia 4. Hypertension Discharge Diagnoses with Status of Each Condition: 1. Cellulitis in the diabetic foot- We treated the patient with rocephin IV and his pain and swelling of his foot have reduced. His leukocyte count has come down and there is less drainage. We had a wound care consult with debridement and the patient will follow up in the [facility] [place] clinic as an outpatient. MRI showed no osteomyelitis. Wound cultures grew only normal jacinto and blood cultures were negative. The patient is discharged home on 2 weeks of clindamycin. 2. Type 2 diabetes mellitus- While in the hospital the patient's blood sugars were well controlled, however A1C is 8.9 indicated poor glycemic control with an average BS OF 209. Recommend more frequent testing and adjustment of BSs. The patients current home insulin regimen is only glargine at night and Victoza during the day. 3. Hyperlipidemia- The patient was continued on lipitor in hospital and on discharge. 4. Hypertension- The patient was restarted on losartan in hospital and hctz and lisionpril were added while in hospital. - HPI History of Present Illness: Mr. Elijah Aguilar is a very pleasant 52-year-old gentleman with a history of type 2 diabetes mellitus which is somewhat brittle in nature and who is status post 3 toes partially amputated for cellulitis of the feet. He came to the [facility] emergency department yesterday with right foot pain and was found to have an area of infection on his right foot. He was placed on clindamycin and sent home and told to return today for a recheck. The patient states that his foot was much more swollen yesterday but it is dehairing machine tender and that an area of the sole of his foot cracked open with some serous drainage found in his sock. Because of the patient's past medical history and current condition it was felt to be prudent to bring him into the hospital for IV antibiotics. - HOSPITAL COURSE Hospital Course: We treated the patient with rocephin IV and his pain and swelling of his foot have reduced. His leukocyte count has come down and there is less drainage. We had a wound care consult with debridement and the patient will follow up in the [facility] clinic as an outpatient. MRI showed no osteomyelitis. Wound cultures grew only normal jacinto and blood cultures were negative. The patient is discharged home on 2 weeks of clindamycin. - ALLERGIES Allergies/Adverse Reactions: Allergies Allergy/AdvReac Type Severity Reaction Status Date / Time hydromorphone [From Dilaudid] Allergy Itching Verified 05/15/18 19:54 - MEDICATIONS Home Medications: Ambulatory Orders Medication Instructions Recorded Confirmed Insulin Glargine,Hum.rec.anlog 30 units SQ QPM 03/07/15 05/14/18 [Lantus Solostar] Gabapentin 1,200 - 1,500 mg PO DAILY 10/05/16 05/14/18 Sildenafil Citrate [Sildenafil] 20 mg PO DAILY PRN 10/21/16 05/14/18 Atorvastatin Calcium 10 mg PO DAILY 07/31/17 05/14/18 Losartan Potassium 100 mg PO DAILY 07/31/17 05/14/18 Liraglutide [Victoza 2-Florian] 1.2 mg SUBQ DAILY 05/13/18 05/14/18 diazePAM [Valium] 5 mg PO Q6H PRN 05/13/18 05/14/18 traMADol [Ultram] 50 - 100 mg PO DAILY PRN 05/13/18 05/14/18 Clindamycin [Cleocin] 300 mg PO QID #56 capsule 05/17/18 - PHYSICAL EXAM AT DISCHARGE General Appearance: positive: No acute distress, Alert Eyes Bilateral: positive: Normal inspection, PERRL, EOMI, No lid inflammation, Conjunctivae nml, No scleral icterus ENT: positive: ENT inspection nml, Pharynx nml, No signs of dehydration Neck: positive: Nml inspection, Thyroid nml, No JVD, Trachea midline. negative : Thyromegaly Respiratory: positive: Chest non-tender, No respiratory distress, Breath sounds nml. negative: Wheezes, Rales, Rhonchi Cardiovascular: positive: Regular rate & rhythm, No murmur, No gallop Peripheral Pulses: positive: 1+ Abdomen: positive: Non-tender, No organomegaly, Nml bowel sounds, No distention. negative: Guarding, Rebound Back: positive: Nml inspection. negative: CVA tenderness (R), CVA tenderness (L ) Skin: positive: Color nml, No rash, Warm, Dry. negative: Cyanosis Extremities: positive: Non-tender, Full ROM, Nml appearance, No pedal edema Neurologic/Psychiatric: positive: Oriented x3, CN's nml (2-12), Motor nml, Sensation nml, Mood/affect nml - LABS Result Diagrams: 05/17/18 06:02 05/17/18 06:02 - DIAGNOSTIC IMAGING Diagnostic Imaging Results: Final report reviewed Diagnostic Imaging Results Comments: EXAM: RIGHT FOOT RADIOGRAPHY EXAM DATE: 05/13/2018 11:47 AM. CLINICAL HISTORY: Pain/swelling. Ulcer on the plantar surface of the right great toe. Diabetes mellitus. COMPARISON: MRI 10/21/2016, radiographs 10/05/2016. TECHNIQUE: 3 views. FINDINGS: Bones and joints: The patient is status post amputation at the shaft of the proximal phalanx of the right great toe. No cortical erosion or periosteal reaction is identified at the great toe or first metatarsal. New since 2016 and 2015, there is a fracture deformity at the base of the middle phalanx of the right second toe associated with new degenerative osteophyte formation at the second PIP joint. Soft Tissues: Soft tissue swelling over the lateral-plantar aspect of the fifth metatarsal phalangeal joint. No milvia soft tissue gas. IMPRESSION: 1. Amputation at the shaft of the proximal phalanx of the right great toe without evidence of active osteomyelitis. 2. Chronic-appearing fracture deformity at the right second middle phalanx and PIP joint, new since 2016. 3. Soft tissue swelling over the lateral-plantar aspect of the fifth MTP joint without underlying osseous or articular abnormality EXAM: [id number] US/WILMA ([id number]) ANKLE BRACHIAL INDEX: 05/02/2017 CLINICAL INDICATION: Osteomyelitis, preop evaluation. TECHNIQUE: Real-time sonographic vascular imaging was performed by the natural gas trader through the extremities utilizing both color-flow and Doppler flow analysis. Multiple technical service representative static images were saved for review. RIGHT SIDE SITE PSV WAVEFORM STEN HEEL REDUCER 64 triphasic DPA 76 triphasic LEFT SIDE SITE PSV WAVEFORM STEN HEEL REDUCER 88 triphasic DPA 144 monophasic TECHNIQUE: Real-time scanning was performed. SYSTOLIC PRESSURES RIGHT LEFT BRACHIAL ARTERY [id number] POSTERIOR TIBIAL ARTERY 172/76 172/84 ANTERIOR TIBIAL ARTERY --- --- PERONEAL ARTERY --- --- ANKLE/ARM INDEX 1.12 1.24 FINDINGS: ABIs are normal, with the right measuring 1.12 and the left measuring 1.24. IMPRESSION: NORMAL ABIs. - FOLLOW UP Follow Up: The patient will follow up with his PCP next week. - TIME SPENT Time Spent in Discharge (Minutes): 45
== END 2018-05-17 12:55 | disposition home or self-care (01) | DRG 603 ==
LOC: ED 07:57 → MS2 10:33
PROVIDERS: ADMIT Hospitalist; ATTEND Hospitalist
DX: L03.115 Cellulitis of right lower limb (principal); E11.65 Type 2 diabetes mellitus with hyperglycemia; E11.42 Type 2 diabetes mellitus with diabetic polyneuropathy; L84 Corns and callosities; I10 Essential (primary) hypertension; E78.5 Hyperlipidemia, unspecified; F17.210 Nicotine dependence, cigarettes, uncomplicated; Z79.4 Long term (current) use of insulin; Z79.899 Other long term (current) drug therapy; Z89.411 Acquired absence of right great toe; Z89.422 Acquired absence of other left toe(s)
CPT/HCPCS: 36415; 80048; 83036; 83605; 85025; 85027; 87040; 99283; 99284

== ENCOUNTER 2018-06-05 09:34 | Inpatient (IN) | payer MEDICAID ==
[2018-06-05] MEDS ORDERED: MORPHINE 10 MG/ML VIAL IVP STA (10:56)
[2018-06-05] MEDS ORDERED: ONDANSETRON 4 MG/2 ML VIAL IVP STA (10:56)
--- NOTE | 2018-06-05 10:59 | ED Physician Documentation ---
History of Present Illness - Stated complaint Stated Complaint: R FOOT INJURY - Chief complaint Chief Complaint: Ext Problem - History obtained from History obtained from: Patient - History of Present Illness Timing: How many days ago (2) - Additonal information Additional information: 52-year-old type II diabetic male with an infected diabetic foot ulcer has been in the hospital last month for 4 days with this and was discharged on some clindamycin. He ran out of the clindamycin several days ago and has come into the [facility] today for his wound care and a culture has been obtained. The area is now erythematous draining and much more painful. The patient is has having significant pain on ambulation. He was sent from the [facility] here for evaluation in the emergency department with progression of symptoms. Review of Systems Constitutional: reports: Chills. denies: Fever Eyes: denies: Decreased vision Ears: denies: Ear pain Nose: denies: Congestion Throat: denies: Sore throat Cardiac: denies: Chest pain / pressure Respiratory: denies: Dyspnea, Cough GI: denies: Abdominal Pain, Nausea, Vomiting : denies: Dysuria, Frequency Skin: denies: Rash Musculoskeletal: reports: Extremity pain, Extremity swelling, Pain with weight bearing. denies: Neck pain, Back pain Neurologic: denies: Generalized weakness, Focal weakness, Numbness PD PAST MEDICAL HISTORY - Past Medical History Cardiovascular: Hypertension, High cholesterol Respiratory: None Neuro: None Endocrine/Autoimmune: Type 2 diabetes GI: None : None HEENT: None Psych: None Musculoskeletal: None Derm: None - Past Surgical History Past Surgical History: Yes General: Appendectomy Ortho: Amputation, Other - Present Medications Home Medications: Ambulatory Orders Medication Instructions Recorded Confirmed Insulin Glargine,Hum.rec.anlog 30 units SQ QPM 03/07/15 05/22/18 [Lantus Solostar] Gabapentin 1,200 - 1,500 mg PO DAILY 10/05/16 05/22/18 Sildenafil Citrate [Sildenafil] 20 mg PO DAILY PRN 10/21/16 05/22/18 Atorvastatin Calcium 10 mg PO DAILY 07/31/17 05/22/18 Losartan Potassium 100 mg PO DAILY 07/31/17 05/22/18 Liraglutide [Victoza 2-Florian] 1.2 mg SUBQ DAILY 05/13/18 05/22/18 diazePAM [Valium] 5 mg PO Q6H PRN 05/13/18 05/22/18 traMADol [Ultram] 50 - 100 mg PO DAILY PRN 05/13/18 05/22/18 - Allergies Allergies/Adverse Reactions: Allergies Allergy/AdvReac Type Severity Reaction Status Date / Time hydromorphone [From Dilaudid] Allergy Itching Verified 06/05/18 09:43 - Social History Does the pt smoke?: Yes Smoking Status: Current every day smoker Does the pt drink ETOH?: Yes Does the pt have substance abuse?: No - Immunizations Immunizations are current?: Yes - POLST Patient has POLST: No POLST Status: Full Code PD ED PE NORMAL - Vitals Vital signs reviewed: Yes (hypertensive ) - General General: Alert and oriented X 3, No acute distress, Well developed/nourished - HEENT HEENT: Atraumatic, PERRL, EOMI - Neck Neck: Supple, no meningeal sign - Cardiac Cardiac: RRR, No murmur - Respiratory Respiratory: No respiratory distress - Abdomen Abdomen: Soft, Non tender - Back Back: No CVA TTP, No spinal TTP - Derm Derm: Normal color, Warm and dry, No rash - Extremities Extremities: Other (There is swelling to the lateral aspect of the right foot. The great toe on the right foot is missing and there is erythema, warmth and swelling to the lateral aspect of the foot. over the plantar surface of the lateral foot there is an ulcer about 1X2cm that is deep and oozing. The depth is into the soft tissue but not to the bone. ) - Neuro Neuro: Alert and oriented X 3, sales facilitator 2-12 intact, No motor deficit, No sensory deficit, Normal speech Eye Opening: Spontaneous Motor: Obeys Commands Verbal: Oriented GCS Score: 15 - Psych Psych: Normal mood, Normal affect Results - Vitals Vitals: Vital Signs - 24 hr 06/05/18 06/05/18 06/05/18 09:38 11:37 12:40 Temperature 36.7 C Heart Rate 82 77 72 Respiratory 18 20 18 Rate Blood Pressure 146/100 H 127/83 H 127/83 H O2 Saturation 82 L 100 96 Oxygen O2 Source Room air - Labs Labs: Laboratory Tests 06/05/18 06/05/18 06/05/18 11:05 11:05 11:05 WBC 12.1 H RBC 5.15 Hgb 17.0 Hct 48.5 MCV 94.1 H MCH 32.9 H MCHC 35.0 RDW 12.7 Plt Count 236 MPV 8.9 Neut # (Auto) 8.7 H Lymph # (Auto) 1.7 Caroline # (Auto) 1.3 H Eos # (Auto) 0.4 Baso # (Auto) 0.1 Absolute Nucleated RBC 0.01 Nucleated RBC % 0.1 Sodium 138 Potassium 3.8 Chloride 103 Carbon Dioxide 24 Anion Gap 11.0 BUN 19 Creatinine 0.7 Estimated GFR (MDRD) 118 Glucose 82 Lactic Acid 1.1 Calcium 9.4 Total Bilirubin 0.5 AST 15 ALT 22 Alkaline Phosphatase 84 Total Protein 8.1 Albumin 4.6 Globulin 3.5 Albumin/Globulin Ratio 1.3 Lipase 23 Urine Color Urine Clarity Urine pH Ur Specific [place] Urine Protein Urine Glucose (UA) Urine Ketones Urine Occult Blood Urine Nitrite Urine Bilirubin Urine Urobilinogen Ur Leukocyte Esterase Ur Microscopic Review Urine Culture Comments 06/05/18 11:05 WBC RBC Hgb Hct MCV MCH MCHC RDW Plt Count MPV Neut # (Auto) Lymph # (Auto) [place] # (Auto) Eos # (Auto) Baso # (Auto) Absolute Nucleated RBC Nucleated RBC % Sodium Potassium Chloride Carbon Dioxide Anion Gap BUN Creatinine Estimated GFR (MDRD) Glucose Lactic Acid Calcium Total Bilirubin AST ALT Alkaline Phosphatase Total Protein Albumin Globulin Albumin/Globulin Ratio Lipase Urine Color YELLOW Urine Clarity CLEAR Urine pH 6.0 Ur Specific [place] <=1.005 Urine Protein NEGATIVE Urine Glucose (UA) NEGATIVE Urine Ketones NEGATIVE Urine Occult Blood NEGATIVE Urine Nitrite NEGATIVE Urine Bilirubin NEGATIVE Urine Urobilinogen 0.2 (NORMAL) Ur Leukocyte Esterase NEGATIVE Ur Microscopic Review NOT INDICATED Urine Culture Comments NOT INDICATED - Rads (name of study) right foot Radiology: Prelim report reviewed (Impression: Tailor's bunion.), EMP read indepedently, See rad report PD MEDICAL DECISION MAKING - ED course Complexity details: reviewed results, re-evaluated patient, considered differential, d/w patient, d/w ent consultant (Ritika recomends admission for antibiotic "cool down" in preparation for amputation if patient is commited. ) ED course: 52-year old male with an infected diabetic foot ulcer has been having a problem with this ulcer for some time and he is ready for amputation. He states that he has been committed to amputation for a year. He arrives to the emergency department today with increased infectious load to include the lateral portion of the foot with cellulitis and increased pain with drainage from his ulcer. He is recently been hospitalized had improvement with the antibiotics and within days of being off the antibiotic infection is significant. The patient feels ill. After consultation with the patient's orthopedic surgeon he recommends admission to the hospital for intravenous antibiotic prior to amputation. Dr. Dillan Curran is consulted in the case and graciously agrees to care for the patient in the hospital. - Sepsis Event Vital Signs: Vital Signs - 24 hr 06/05/18 06/05/18 06/05/18 09:38 11:37 12:40 Temperature 36.7 C Heart Rate 82 77 72 Respiratory 18 20 18 Rate Blood Pressure 146/100 H 127/83 H 127/83 H O2 Saturation 82 L 100 96 Oxygen O2 Source Room air Departure - Departure Disposition: 66 [facility] DC/Xfer Clinical Impression: Cellulitis in diabetic foot Diabetic foot ulcer Qualifiers: Diabetic foot ulcer location: other Diabetes mellitus type: type 2 Laterality: right Non-pressure ulcer stage: with fat layer exposed Qualified Code(s): E11.621 - Type 2 diabetes mellitus with foot ulcer; L97.512 - Non-pressure chronic ulcer of other part of right foot with fat layer exposed; L97.512 - Non- pressure chronic ulcer of other part of right foot with fat layer exposed; L97.512 - Non-pressure chronic ulcer of other part of right foot with fat layer exposed; L97.512 - Non-pressure chronic ulcer of other part of right foot with fat layer exposed
[2018-06-05 11:15] LABS: BASOPHILS # (AUTO) 0.1 10^3/uL (0.0-0.1); BASOPHILS % (AUTO) 0.5 %; EOSINOPHILS # (AUTO) 0.4 10^3/uL (0.0-0.7); EOSINOPHILS % (AUTO) 2.9 %; LYMPHOCYTES # (AUTO) 1.7 10^3/uL (1.5-3.5); LYMPHOCYTES % (AUTO) 13.9 %; MEAN CORPUSCULAR HEMOGLOBIN 32.9 pg (27.0-31.0); MEAN CORPUSCULAR VOLUME 94.1 fL (80.0-94.0); MEAN PLATELET VOLUME 8.9 fL (7.4-11.4); MONOCYTES # (AUTO) 1.3 10^3/uL (0.0-1.0); MONOCYTES % (AUTO) 10.9 %; NEUTROPHILS # (AUTO) 8.7 10^3/uL (1.5-6.6); NEUTROPHILS % (AUTO) 71.8 %; PLT - PLATELET COUNT 236 10^3/uL (130-450); RED BLOOD COUNT 5.15 10^6/uL (4.70-6.10); RED CELL DISTRIBUTION WIDTH 12.7 % (12.0-15.0); WHITE BLOOD COUNT 12.1 x10^3/uL (4.8-10.8)
[2018-06-05 11:27] LABS: ALBUMIN 4.6 g/dL (3.2-5.5); ALBUMIN/GLOBULIN RATIO 1.3 (1.0-2.2); BILIRUBIN,TOTAL 0.5 mg/dL (0.2-1.0); CALCIUM 9.4 mg/dL (8.5-10.3); CREATININE 0.7 mg/dL (0.6-1.2); TOTAL PROTEIN 8.1 g/dL (6.7-8.2)
[2018-06-05 11:34] LABS: BILIRUBIN,URINE NEGATIVE (NEGATIVE); GLUCOSE, URINE (UA) NEGATIVE (NEGATIVE); KETONES,URINE (UA) NEGATIVE (NEGATIVE); LEUKOCYTE ESTERASE, URINE NEGATIVE (NEGATIVE); NITRITE,URINE NEGATIVE (NEGATIVE); OCCULT BLOOD,URINE NEGATIVE (NEGATIVE); PROTEIN,URINE NEGATIVE (NEGATIVE); UROBILINOGEN,URINE 0.2 (NORMAL) E.U./dL (NORMAL)
[2018-06-05 11:36] LABS: CLARITY,URINE CLEAR (CLEAR)
--- NOTE | 2018-06-05 11:49 | XRAY Report ---
Reason: infected diabetic foot ulcer distal 5th Procedure Date: 06/05/2018 Accession Number: [id number] / [id number] Procedure: XR - Foot 3 View RT CPT Code: FULL RESULT: EXAM: RIGHT FOOT RADIOGRAPHY EXAM DATE: 06/05/2018 11:32 AM. CLINICAL HISTORY: Plantar and lateral foot pain and swelling for one week COMPARISON: None. TECHNIQUE: 3 views. FINDINGS: Bones: There is anatomic variation versus posttraumatic or postinfectious change of the second proximal and middle phalanges there is partial amputation of the distal first ray. Joints: Otherwise normal. No subluxations. Soft Tissues: Tailor's bunion is noted. IMPRESSION: Tailor's bunion RADIA
[2018-06-05] MEDS ORDERED: traMADol 50 MG TABLET PO PRN (12:51)
[2018-06-05] MEDS ORDERED: PROMETHAZINE 25 MG/1 ML VIAL IM PRN (12:54)
[2018-06-05] MEDS ORDERED: ONDANSETRON 4 MG/2 ML VIAL IVP PRN (12:54)
[2018-06-05] MEDS ORDERED: oxyCODONE 5 MG TABLET PO PRN (12:54)
[2018-06-05] MEDS ORDERED: ZOLPIDEM 5 MG TABLET PO PRN (12:54)
[2018-06-05] MEDS ORDERED: ACETAMINOPHEN 325 MG TABLET PO PRN (12:54)
[2018-06-05] MEDS ORDERED: PROCHLORPERAZINE 10 MG/2 ML VIAL IVP PRN (12:54)
--- NOTE | 2018-06-05 13:04 | HISTORY & PHYSICAL EXAMINATION ---
Chief Complaint - Chief Complaint Chief Complaint: Right foot pain, swelling and redness History of Present Illness - Admitted From Admitted From:: Emergency Department - History Obtained From Records Reviewed: Yes History obtained from: Patient Exam Limitations: None - History of Present Illness HPI Comment/Other: Patient is a 52-year-old gentleman with a past medical history significant for insulin-dependent type 2 diabetes, hypertension, tobacco abuse, peripheral neuropathy, hyperlipidemia and recurrent diabetic foot infections with 3 prior amputations including 2 toes on the left foot and his big toe on the right foot who presents to the emergency department today with chief complaint of right foot pain, swelling and redness. The patient states that symptoms started about 3 weeks ago when he began to notice that he had swelling of his right foot. At that time he came to the emergency department and was given oral clindamycin and sent home. The patient states that his symptoms continued therefore he returned to the emergency department the following day and had to be admitted to the [facility] for treatment of right foot cellulitis with IV antibiotics. The patient was treated with IV Rocephin for 3 days and discharged on 05/17/2018 on oral clindamycin. The patient states that after discharge from the hospital he followed up with wound care at the [facility] clinic. He states that despite wound care his right foot swelling and pain was not subsiding. He states that he was off of work for just over 1 week and then return to work just a few days ago. He states that he worked at his job in [employer] on 06/02/2018 and 06/03/2018 but he states that the right foot swelled up and became so painful that he could no longer walk on it. He states he tried to rest but symptoms were just not improving therefore he finally decided to come to the emergency department today. In the past the patient has been apprehensive about getting an amputation of the right foot but the patient states that he is tired of dealing with this and is finally prepared to have the foot amputated if needed. The patient denies any fevers or chills at home. He does state that he noticed that his foot was becoming increasingly malodorous. The patient denies any muscle aches, joint pains, diaphoresis, night sweats or any nausea or vomiting. The patient denies any trauma to the right foot. The patient does have a open wound at the bottom of the right foot. The patient denies any left foot swelling or pain. Patient denies any headaches, blurred vision, runny nose, sore throat, nasal congestion, difficulty swallowing, chest pain, palpitations, shortness of air, cough, orthopnea, PND, increased pedal edema, abdominal pain, nausea, vomiting, diarrhea, constipation, back pain, urinary urgency, urinary frequency, dysuria, neck stiffness, recent unintentional weight loss, changes in appetite, hair loss , polyuria, polydipsia, fatigue, or any focal neurologic deficits On presentation to the emergency department the patient was afebrile and slightly hypertensive otherwise vital signs were within normal limits. The patient's lab work did reveal a leukocytosis of 12.1 which was elevated from his previous hospitalization when his leukocytosis peaked at 11.4. The patient' s electrolytes were all within normal limits and remainder of labs were unremarkable. The patient did undergo a UA which was negative. The patient had a x-ray of his right foot performed which showed a tailor's bunion but no evidence of osteomyelitis. The patient had an obviously swollen, warm, red, malodorous and tender right foot. In the emergency department the patient was given IV morphine and IV Zofran. The emergency room physician spoke with Dr. Yost the orthopedic surgeon conveyancer who recommended admitting the patient for IV antibiotics to allow for the foot to cool off. Given that the patient was agreeable orthopedic surgery will consult on the patient and consider possibility for amputation. History - Past Medical History Cardiovascular: reports: Hypertension, High cholesterol Respiratory: reports: None Neuro: reports: Peripheral neuropathy Endocrine/Autoimmune: reports: Type 2 diabetes GI: reports: None : reports: None HEENT: reports: None Psych: reports: None Musculoskeletal: reports: None Derm: reports: Other (Multiple diabetic foot ulcers with amputations) MRSA Hx?: No - Past Surgical History General: reports: Appendectomy Ortho: reports: Amputation, Other - Family & Social History Family History: Mother: (Dad at 46 of CAD), Alzheimer's Disease, Father: , CAD, Diabetes, Type 2, Hyperlipidemia, Hypertension, [place], Other family: CVA/TIA Living arrangement: At home Living Situation: With friend(s) Social History Notes: Patient [place] his friend[place]. 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 He states that he will likely lose his job due to this most recent hospitalization and will likely pursue disability in the future. The patient is single and he does not have any children. He smokes less than half a pack a day and has cut back from 1-1-1/2 packs a day which she was smoking for 25-30 years. States he occasionally drinks alcohol but denies any illicit drug use. - Substance History Use: Uses substance without health or social issues: Tobacco, Alcohol - POLST Patient has POLST: No POLST Status: Full Code Meds/Allgy - Home Medications Home Medications: Ambulatory Orders Medication Instructions Recorded Confirmed Insulin Glargine,Hum.rec.anlog 30 units SQ QPM 03/07/15 05/22/18 [Lantus Solostar] Gabapentin 1,200 - 1,500 mg PO DAILY 10/05/16 05/22/18 Sildenafil Citrate [Sildenafil] 20 mg PO DAILY PRN 10/21/16 05/22/18 Atorvastatin Calcium 10 mg PO DAILY 07/31/17 05/22/18 Losartan Potassium 100 mg PO DAILY 07/31/17 05/22/18 Liraglutide [Victoza 2-Florian] 1.2 mg SUBQ DAILY 05/13/18 05/22/18 diazePAM [Valium] 5 mg PO Q6H PRN 05/13/18 05/22/18 traMADol [Ultram] 50 - 100 mg PO DAILY PRN 05/13/18 05/22/18 - Allergies Allergies/Adverse Reactions: Allergies Allergy/AdvReac Type Severity Reaction Status Date / Time hydromorphone [From Dilaudid] Allergy Itching Verified 06/05/18 09:43 Review of Systems - Other Findings Other Findings: A comprehensive review of systems was performed the pertinent positives and negatives are stated above in the HPI and the remainder of the review of systems is negative. Exam - Vital Signs Reviewed Vital Signs: Yes Vital Signs: Vital Signs x48h Temp Pulse Resp BP Pulse Ox 06/05/18 12:40 72 18 127/83 H 96 06/05/18 11:37 77 20 127/83 H 100 06/05/18 09:38 36.7 C 82 18 146/100 H 82 L - Physical Exam General Appearance: positive: Alert, Moderate distress (Secondary to pain in the right foot) Eyes Bilateral: positive: Normal inspection, PERRL, EOMI, No lid inflammation, Conjunctivae nml, No scleral icterus ENT: positive: ENT inspection nml, Pharynx nml, No signs of dehydration. negative: Purulent nasal drainage, Pharyngeal erythema, Oral lesions Neck: positive: Nml inspection, Thyroid nml, No JVD, Trachea midline. negative : Thyromegaly, Lymphadenopathy (R), Lymphadenopathy (L), Carotid bruit, Tracheal deviation Respiratory: positive: Chest non-tender, No respiratory distress, Breath sounds nml. negative: Wheezes, Rales, Rhonchi Cardiovascular: positive: Regular rate & rhythm, No murmur, No gallop Peripheral Pulses: positive: 2+ Abdomen: positive: Non-tender, No organomegaly, Nml bowel sounds, No distention. negative: Guarding, Rebound, Hepatomegaly Back: positive: Nml inspection. negative: CVA tenderness (R), CVA tenderness (L ) Skin: positive: Other (Right foot is swollen, tender with erythema and foul- smelling. Patient has a small open wound on the plantar aspect of his lateral right foot. Patient's first toe on the right foot has been amputated.) Extremities: positive: Full ROM, Nml appearance, No pedal edema, Other ( Swelling and tenderness of the right foot. Amputations of the big toe on the right foot, second and fifth toe on the left foot. Patient has good dorsalis pedis pulse in bilateral feet. Patient's left foot is cool to touch.) Neurologic/Psychiatric: positive: Oriented x3, CN's nml (2-12), Motor nml, Mood/ affect nml, Sensory loss (Patient has decreased sensations in bilateral feet) Conclusion/Plan - Problem List (1) Cellulitis in diabetic foot Conclusion/Plan: Patient appears to have cellulitis of his entire right foot. He has significant swelling when compared to the left foot along with erythema, tenderness and has a foul-smelling foot. The patient does not have any drainage or pus coming from the foot. He does have an open wound on the plantar aspect of the foot. The patient's x-ray of the right foot does not reveal any evidence of osteomyelitis. The patient has been dealing with this right foot infection for about 3 weeks now. He was previously hospitalized and put on IV antibiotics and then transitioned to oral antibiotics and just completed treatment with oral antibiotics a few days ago. After completing treatment the patient's infection has returned rapidly. The patient is not febrile and does not appear septic on presentation. He does have a mild leukocytosis and significant symptoms of the right foot. He has severe pain and has difficulty ambulating. The patient is interested in getting an amputation of the right foot given that he has had recurrence of infection multiple times and antibiotics do not seem to resolve the infection. Plan: IV vancomycin and IV Zosyn IV morphine for pain control Follow-up blood cultures Orthopedic surgery consult for possible amputation. Orthopedics would like to allow for IV antibiotics for 1-2 days prior to evaluating patient for amputation. Strict control of blood sugars. (2) Diabetes mellitus type 2, insulin dependent Conclusion/Plan: Patient has a history of insulin-dependent type 2 diabetes. His last hemoglobin A1c was 8.9. On presentation the patient's blood glucose is elevated at 248. The patient did present with a diabetic foot infection and has had recurrent infections in the past requiring multiple amputations. Plan: Place patient on home dose of Lantus 30 units Hold patient's home dose of Victoza Placed on sliding scale insulin Check hemoglobin A1c Monitor blood glucose before meals at bedtime Diabetic diet Nutrition consult (3) HTN (hypertension) Conclusion/Plan: Patient's blood pressure is well controlled on presentation. Patient will be continued on his home dose of losartan. We will continue to monitor patient's blood pressure and titrate medication as needed. Qualifiers: Hypertension type: essential hypertension Qualified Code(s): I10 - Essential (primary) hypertension (4) Peripheral neuropathy Conclusion/Plan: Secondary to DM Patient has limited sensation in bilateral feet hence his recurrent diabetic foot infections and need for previous amputations Patient will be continued on his home dose of gabapentin (5) Hyperlipidemia Conclusion/Plan: Patient will be continued on his home dose of statin Stable Qualifiers: Hyperlipidemia type: unspecified Qualified Code(s): E78.5 - Hyperlipidemia , unspecified (6) Tobacco abuse Conclusion/Plan: Patient continues to smoke about half a pack a day. He states he is cut down from pack to pack and a half a day which he was doing for the past 25-30 years. The patient would like a nicotine patch. He was counseled on the need to quit smoking. - Lab Results Lab results reviewed: Yes Fish Bones: 06/05/18 11:05 06/05/18 11:05 Other Lab Results: Laboratory Results WBC 12.1 x10^3/uL (4.8-10.8) H 06/05/18 11:05 RBC 5.15 10^6/uL (4.70-6.10) 06/05/18 11:05 Hgb 17.0 g/dL (14.0-18.0) 06/05/18 11:05 Hct 48.5 % (42.0-52.0) 06/05/18 11:05 MCV 94.1 fL (80.0-94.0) H 06/05/18 11:05 MCH 32.9 pg (27.0-31.0) H 06/05/18 11:05 MCHC 35.0 g/dL (32.0-36.0) 06/05/18 11:05 RDW 12.7 % (12.0-15.0) 06/05/18 11:05 Plt Count 236 10^3/uL (130-450) 06/05/18 11:05 MPV 8.9 fL (7.4-11.4) 06/05/18 11:05 Neut # (Auto) 8.7 10^3/uL (1.5-6.6) H 06/05/18 11:05 Lymph # (Auto) 1.7 10^3/uL (1.5-3.5) 06/05/18 11:05 [place] # (Auto) 1.3 10^3/uL (0.0-1.0) H 06/05/18 11:05 Eos # (Auto) 0.4 10^3/uL (0.0-0.7) 06/05/18 11:05 Baso # (Auto) 0.1 10^3/uL (0.0-0.1) 06/05/18 11:05 Absolute Nucleated RBC 0.01 x10^3/uL 06/05/18 11:05 Nucleated RBC % 0.1 /100WBC 06/05/18 11:05 Sodium 138 mmol/L (135-145) 06/05/18 11:05 Potassium 3.8 mmol/L (3.5-5.0) 06/05/18 11:05 Chloride 103 mmol/L (101-111) 06/05/18 11:05 Carbon Dioxide 24 mmol/L (21-32) 06/05/18 11:05 Anion Gap 11.0 (6-13) 06/05/18 11:05 BUN 19 mg/dL (6-20) 06/05/18 11:05 Creatinine 0.7 mg/dL (0.6-1.2) 06/05/18 11:05 Estimated GFR (MDRD) 118 (>89) 06/05/18 11:05 Glucose 82 mg/dL (70-100) 06/05/18 11:05 Lactic Acid 1.1 mmol/L (0.5-2.2) 06/05/18 11:05 Calcium 9.4 mg/dL (8.5-10.3) 06/05/18 11:05 Total Bilirubin 0.5 mg/dL (0.2-1.0) 06/05/18 11:05 AST 15 IU/L (10-42) 06/05/18 11:05 ALT 22 IU/L (10-60) 06/05/18 11:05 Alkaline Phosphatase 84 IU/L (42-121) 06/05/18 11:05 Total Protein 8.1 g/dL (6.7-8.2) 06/05/18 11:05 Albumin 4.6 g/dL (3.2-5.5) 06/05/18 11:05 Globulin 3.5 g/dL (2.1-4.2) 06/05/18 11:05 Albumin/Globulin Ratio 1.3 (1.0-2.2) 06/05/18 11:05 Lipase 23 U/L (22-51) 06/05/18 11:05 Urine Color YELLOW 06/05/18 11:05 Urine Clarity CLEAR (CLEAR) 06/05/18 11:05 Urine pH 6.0 PH (5.0-7.5) 06/05/18 11:05 Ur Specific [place] <=1.005 (1.002-1.030) 06/05/18 11:05 Urine Protein NEGATIVE mg/dL (NEGATIVE) 06/05/18 11:05 Urine Glucose (UA) NEGATIVE mg/dL (NEGATIVE) 06/05/18 11:05 Urine Ketones NEGATIVE mg/dL (NEGATIVE) 06/05/18 11:05 Urine Occult Blood NEGATIVE (NEGATIVE) 06/05/18 11:05 Urine Nitrite NEGATIVE (NEGATIVE) 06/05/18 11:05 Urine Bilirubin NEGATIVE (NEGATIVE) 06/05/18 11:05 Urine Urobilinogen 0.2 (NORMAL) E.U./dL (NORMAL) 06/05/18 11:05 Ur Leukocyte Esterase NEGATIVE (NEGATIVE) 06/05/18 11:05 Ur Microscopic Review NOT INDICATED 06/05/18 11:05 Urine Culture Comments NOT INDICATED 06/05/18 11:05 - Diagnostic Imaging Results Diagnostic Imaging Results: positive: Final report reviewed Diagnostic Imaging Results Comments: X-ray right foot Impression: Tailor's bunion. There is anatomic variation versus posttraumatic or postinfectious change of the second proximal and middle phalanges there is partial amputation of the distal first phalanges. Core Measures - Anticipated LOS I expect patient to be DC'd or transferred within 96 hours.: Yes - DVT/VTE - Prophylaxis VTE/DVT Prophylaxis med ordered at admit?: Yes
[2018-06-05] MEDS: SODIUM CHLORIDE 0.9% 1,000 ML IV SCH (14:47)
[2018-06-05] MEDS: PIPERACILLIN/TAZOBACTAM 3.375 GM in SODIUM CHLORIDE 0.9% MINIBAG 100 ML IV SCH ×2 (14:51→20:06)
[2018-06-05] MEDS: NICOTINE 21 MG PATCH TOP SCH (14:54)
[2018-06-05] MEDS: MORPHINE 2 MG/ML SYRINGE IVP PRN ×3 (14:55→21:53)
[2018-06-05] MEDS ORDERED: VANCOMYCIN INJ 2 GM in SODIUM CHLORIDE 0.9% 500 ML IV ONE (16:00)
[2018-06-05] MEDS ORDERED: INSULIN ASPART 300 UNIT/3 ML PEN SUBQ SCH (17:00)
[2018-06-05] MEDS: SODIUM CHLORIDE FLUSH 0.9% 10 ML SYRINGE IVP SCH (17:19)
[2018-06-05] MEDS: INSULIN ASPART 300 UNIT/3 ML PEN SUBQ SCH (21:37)
[2018-06-05] MEDS: INSULIN GLARGINE 300 UNIT/3 ML PEN SUBQ SCH (21:41)
[2018-06-05] MEDS: oxyCODONE 5 MG TABLET PO PRN (21:54)
[2018-06-06] MEDS: VANCOMYCIN INJ 1 GM in SODIUM CHLORIDE 0.9% 250 ML IV SCH ×3 (00:02→16:26)
[2018-06-06] MEDS: diazePAM 5 MG TABLET PO PRN (00:02)
[2018-06-06] MEDS: SODIUM CHLORIDE FLUSH 0.9% 10 ML SYRINGE IVP SCH ×3 (00:02→16:29)
[2018-06-06] MEDS: diphenhydrAMINE INJ 50 MG/ML VIAL IVP PRN (02:01)
[2018-06-06] MEDS: PIPERACILLIN/TAZOBACTAM 3.375 GM in SODIUM CHLORIDE 0.9% MINIBAG 100 ML IV SCH ×4 (02:02→20:14)
[2018-06-06] MEDS: MORPHINE 2 MG/ML SYRINGE IVP PRN ×3 (05:43→21:02)
[2018-06-06 05:56] LABS: HB2 TOTAL 14.9 g/dL; HEMOGLOBIN A1C 1.09 g/dL; HEMOGLOBIN A1C % 8.8 % (4.6-6.2)
[2018-06-06] MEDS: SODIUM CHLORIDE 0.9% 1,000 ML IV SCH ×2 (07:54→14:36)
[2018-06-06] MEDS: INSULIN ASPART 300 UNIT/3 ML PEN SUBQ SCH ×4 (07:56→20:56)
[2018-06-06 08:07] LABS: CALCIUM 8.4 mg/dL (8.5-10.3); CARBON DIOXIDE - CO2 24 mmol/L (21-32); CHLORIDE 104 mmol/L (101-111); GLUCOSE 110 mg/dL (70-100); SODIUM 134 mmol/L (135-145)
[2018-06-06 08:16] LABS: ALBUMIN 3.3 g/dL (3.2-5.5); ALBUMIN/GLOBULIN RATIO 1.2 (1.0-2.2); ALKALINE PHOSPHATASE 61 IU/L (42-121); ALT ALANINE AMINOTRANSFERASE 16 IU/L (10-60); AST ASPARTATE AMINOTRANSFERASE 13 IU/L (10-42); BILIRUBIN,TOTAL 0.4 mg/dL (0.2-1.0); BUN - BLOOD UREA NITROGEN 18 mg/dL (6-20); CREATININE 0.8 mg/dL (0.6-1.2); CRP - C-REACTIVE PROTEIN 2.2 mg/dL (0-1.0); GFR - MDRD 101 (>89); TOTAL PROTEIN 6.1 g/dL (6.7-8.2)
[2018-06-06 08:17] LABS: MEAN CORPUSCULAR HEMOGLOBIN 33.6 pg (27.0-31.0); MEAN CORPUSCULAR HGB CONC 35.3 g/dL (32.0-36.0); MEAN CORPUSCULAR VOLUME 95.1 fL (80.0-94.0); MEAN PLATELET VOLUME 9.6 fL (7.4-11.4); RED BLOOD COUNT 4.16 10^6/uL (4.70-6.10); RED CELL DISTRIBUTION WIDTH 12.7 % (12.0-15.0)
[2018-06-06] MEDS: GABAPENTIN 400 MG CAPSULE PO SCH (08:19)
[2018-06-06] MEDS: LOSARTAN 50 MG TABLET PO SCH (08:20)
[2018-06-06] MEDS: FAMOTIDINE 20 MG TABLET PO SCH (08:20)
[2018-06-06] MEDS: ENOXAPARIN 40 MG/0.4 ML SYRINGE SUBQ SCH ×2 (08:21→08:24)
[2018-06-06] MEDS: ATORVASTATIN 10 MG TABLET PO SCH (08:21)
[2018-06-06] MEDS: NICOTINE 21 MG PATCH TOP SCH (08:22)
[2018-06-06] MEDS: POLYETHYLENE GLYCOL 3350 17 GM PACKET PO SCH (08:32)
[2018-06-06] MEDS: SODIUM CHLORIDE FLUSH 0.9% 10 ML SYRINGE IVP PRN ×4 (09:46→21:03)
--- NOTE | 2018-06-06 11:50 | PROVIDER PROGRESS NOTE ---
Assessment/Plan - Problem List (1) Cellulitis in diabetic foot Assessment/Plan: Patient appears to have cellulitis of his entire right foot. He has significant swelling when compared to the left foot along with erythema, tenderness and has a foul-smelling foot. The patient has mild serosanguineous drainage from an open wound on the plantar aspect of the foot. The patient's x- ray of the right foot does not reveal any evidence of osteomyelitis. The patient has been dealing with this right foot infection for about 3 weeks now. He was previously hospitalized and put on IV antibiotics and then transitioned to oral antibiotics and just completed treatment with oral antibiotics a few days ago. After completing treatment the patient's infection has returned rapidly. The patient is not febrile and does not appear septic on presentation. He does have a mild leukocytosis and significant symptoms of the right foot. He has severe pain and has difficulty ambulating. The patient is interested in getting an amputation of the right foot given that he has had recurrence of infection multiple times and antibiotics do not seem to resolve the infection. Continue IV vancomycin and IV Zosyn day 2 IV morphine for pain control, pain uncontrolled will increase morphine to 4 mg Blood cultures negative We will attempt to get culture of drainage at the bottom of his foot Orthopedic surgery recommends repeat MRI to look for osteomyelitis and to continue IV abx for now Strict control of blood sugars. WBC improved, ESR NL, CRP elevated, no fevers, foot still swollen and painful Will continue to monitor closely (2) Diabetes mellitus type 2, insulin dependent Conclusion/Plan: Patient has a history of insulin-dependent type 2 diabetes. His last hemoglobin A1c was 8.9. On presentation the patient's blood glucose is elevated at 248. The patient did present with a diabetic foot infection and has had recurrent infections in the past requiring multiple amputations. Continued patient on home dose of Lantus 30 units Hold patient's home dose of Victoza Placed on sliding scale insulin Hemoglobin A1c is 8.8 Monitor blood glucose before meals at bedtime Diabetic diet Nutrition consult BG well controlled this am (3) HTN (hypertension) Conclusion/Plan: Patient's blood pressure is well controlled on presentation. Patient will be continued on his home dose of losartan. We will continue to monitor patient's blood pressure and titrate medication as needed. Continues to be well controlled Qualifiers: Hypertension type: essential hypertension Qualified Code(s): I10 - Essential (primary) hypertension (4) Peripheral neuropathy Conclusion/Plan: Secondary to DM Patient has limited sensation in bilateral feet hence his recurrent diabetic foot infections and need for previous amputations Patient will be continued on his home dose of gabapentin Stable (5) Hyperlipidemia Conclusion/Plan: Patient will be continued on his home dose of statin Stable Qualifiers: Hyperlipidemia type: unspecified Qualified Code(s): E78.5 - Hyperlipidemia , unspecified (6) Tobacco abuse Conclusion/Plan: Patient continues to smoke about half a pack a day. He states he is cut down from pack to pack and a half a day which he was doing for the past 25-30 years. He was counseled on the need to quit smoking. Continue nicotine patch - Current Meds Current Meds: Current Medications Generic Name Dose Route Start Last Admin Trade Name Freq PRN Reason Stop Dose Admin Atorvastatin Calcium 10 mg 06/06/18 09:00 06/06/18 08:21 Lipitor PO 10 mg DAILY LILLIAN Administration Diazepam 5 mg 06/05/18 12:51 06/06/18 00:02 Valium PO 5 mg Q6H PRN Administration Spasms Diphenhydramine HCl 25 mg 06/06/18 01:52 06/06/18 02:01 Benadryl Inj IVP 25 mg Q6H PRN Administration Allergy Symptoms Enoxaparin Sodium 40 mg 06/06/18 09:00 06/06/18 08:24 Lovenox SUBQ 40 mg DAILY LILLIAN Administration Famotidine 20 mg 06/06/18 09:00 06/06/18 08:20 Pepcid PO 20 mg DAILY [facility]ILLIAN Administration Gabapentin 1,200 mg 06/06/18 09:00 06/06/18 08:19 Neurontin PO 1,200 mg DAILY [facility] Administration Piperacillin Sod/Tazobactam 100 mls @ 200 mls/hr 06/05/18 14:00 06/06/18 08: 45 Sod 3.375 gm/ Sodium Chloride IV Infused Q6H [facility] Infusion Sodium Chloride 1,000 mls @ 100 mls/hr 06/05/18 13:00 06/06/18 07:54 Normal Saline 0.9% IV 100 mls/hr .Q10H [facility] Administration Vancomycin HCl 1 gm/ Sodium 250 mls @ 167 mls/hr 06/06/18 00:00 06/06/18 10: 35 Chloride IV Infused Q8H [facility] Infusion Insulin Aspart 1 - 9 unit 06/05/18 21:34 06/06/18 07:56 Novolog SUBQ 06/11/18 23:59 Not Given 0800,1200,1700,2100 [facility] Protocol Insulin Glargine 30 unit 06/05/18 21:00 06/05/18 21:41 Lantus Solostar SUBQ 30 unit QPM [facility] Administration Losartan Potassium 100 mg 06/06/18 09:00 06/06/18 08:20 Cozaar PO 100 mg DAILY [facility] Administration Morphine Sulfate 4 mg 06/06/18 09:18 06/06/18 09:39 Morphine IVP 4 mg Q2H PRN Administration PAIN Nicotine 1 patch 06/05/18 15:00 06/06/18 08:22 Nicoderm TOP 1 patch DAILY [facility] Administration Oxycodone HCl 10 mg 06/05/18 12:54 06/05/18 21:54 Roxicodone PO 10 mg Q4HR PRN Administration Pain 8 to 10 Polyethylene Glycol 17 gm 06/06/18 09:00 06/06/18 08:32 Miralax PO Not Given DAILY [facility] Sodium Chloride 10 ml 06/05/18 12:54 06/06/18 09:47 Normal Saline Flush 0.9% IVP 10 ml PRN PRN Administration NEEDED PER PROVIDER ORDERS Sodium Chloride 10 ml 06/05/18 17:00 06/06/18 00:02 Normal Saline Flush 0.9% IVP 10 ml 0100,0900,1700 [facility] Administration Zolpidem Tartrate 5 mg 06/05/18 12:54 06/06/18 00:02 Ambien PO 5 mg QPM PRN Administration Insomnia - Lab Result Lab results reviewed: Yes Fish Bone Diagrams: 06/06/18 04:30 06/06/18 04:30 - Diagnostic Imaging Results Diagnostic Imaging Results: Final report reviewed - Additional Planning Condition/Complexity: Stable My Orders: My Active Orders 06/05/18 14:13 Nutrition Consult [CONS] Routine 06/05/18 15:00 Nicotine 21 mg Patch [Nicoderm] 1 patch TOP DAILY 06/05/18 16:11 Foot RT W/O [MRI] Routine 06/05/18 21:34 Blood Glucose Checks - Eating [RC] 0800,1200,1700,2100 Initiate Hypoglycemia Protocol [RC] .protocol Insulin Aspart [NovoLOG] 1 - 9 unit SUBQ 0800,1200,1700,2100 06/06/18 00:00 Vancomycin Inj [Vancomycin] 1 gm Sodium Chloride 0.9% [Normal Saline 0.9%] 250 ml IV Q8H 06/06/18 09:18 Morphine Inj [Morphine] 4 mg IVP Q2H PRN 06/07/18 05:00 CBC W/O DIFF (HEMOGRAM) [HEME] DAILYLAB CMP, RFLX TO IONIZED CA IF [CHEM] DAILYLAB CRP - C-REACTIVE PROTEIN [CHEM] DAILYLAB ESR- ERYTHROCYTE SEDIMENT RATE [HEME] DAILYLAB 06/07/18 07:30 VANCOMYCIN TROUGH [CHEM] Timed 06/08/18 05:00 CBC W/O DIFF (HEMOGRAM) [HEME] DAILYLAB CMP, RFLX TO IONIZED CA IF [CHEM] DAILYLAB CRP - C-REACTIVE PROTEIN [CHEM] DAILYLAB ESR- ERYTHROCYTE SEDIMENT RATE [HEME] DAILYLAB 06/09/18 05:00 CBC W/O DIFF (HEMOGRAM) [HEME] DAILYLAB CMP, RFLX TO IONIZED CA IF [CHEM] DAILYLAB CRP - C-REACTIVE PROTEIN [CHEM] DAILYLAB ESR- ERYTHROCYTE SEDIMENT RATE [HEME] DAILYLAB 06/10/18 05:00 CBC W/O DIFF (HEMOGRAM) [HEME] DAILYLAB CMP, RFLX TO IONIZED CA IF [CHEM] DAILYLAB CRP - C-REACTIVE PROTEIN [CHEM] DAILYLAB ESR- ERYTHROCYTE SEDIMENT RATE [HEME] DAILYLAB Consult/Specialty: Other (Orthopedic Surgery) Plan Discussed with:: Patient Time Spent: 31-60 minutes Subjective - Subjective Patient Reports: Pain (Right foot), Other (Foot still swollen, tender with drainage. No fevers or chills.) Nursing Reports: Pain Objective Vital Signs: Vital Signs - 24 hr 06/05/18 06/06/18 06/06/18 15:59 00:00 07:33 Temperature 36.8 C 36.9 C 36.5 C Heart Rate [ 82 74 69 Brachial] Respiratory 20 18 19 Rate Blood Pressure 135/68 H 134/85 H 134/76 H [Left Brachial artery] O2 Saturation 96 95 97 Oxygen O2 Source Room air I&O (Last 24 Hrs): Intake and Output Totals x24h 06/04/18 06/05/18 06/06/18 23:59 23:59 23:59 Intake Total 2648.333 2851.667 Output Total 450 Balance 2648.333 2401.667 General: Alert, Oriented x3, Mild distress (Pain in the foot) HEENT: Atraumatic, PERRLA, EOMI, Mucous membr. moist/pink Neck: Supple, No JVD, No thyromegaly, +2 carotid pulse wo bruit, No LAD Lymphatic: no adenopathy Neuro: Alert, Non Focal, CN 2-12 Grossly Intact, Oriented Times 3 Cardiovascular: Regular rate, Normal S1, Normal S2, No murmurs Respiratory: Chest non-tender, No respiratory distress, Breath sounds nml Abdomen: Normal bowel sounds, Soft, No tenderness, No hepatospenomegaly, No masses Extremities: No clubbing, No cyanosis, Normal pulses, Other (Right foot swollen , tender, red with open wound on the plantar aspect which with mild drainage.) Comments/Notes: Small open ulcer on the plantar aspect of the right foot with mild drainage, RIght foot is warm and tender - Results Results: Laboratory Results WBC 7.0 x10^3/uL (4.8-10.8) 06/06/18 04:30 RBC 4.16 10^6/uL (4.70-6.10) L 06/06/18 04:30 Hgb 14.0 g/dL (14.0-18.0) 06/06/18 04:30 Hct 39.6 % (42.0-52.0) L 06/06/18 04:30 MCV 95.1 fL (80.0-94.0) H 06/06/18 04:30 MCH 33.6 pg (27.0-31.0) H 06/06/18 04:30 MCHC 35.3 g/dL (32.0-36.0) 06/06/18 04:30 RDW 12.7 % (12.0-15.0) 06/06/18 04:30 Plt Count 198 10^3/uL (130-450) 06/06/18 04:30 MPV 9.6 fL (7.4-11.4) 06/06/18 04:30 Neut # (Auto) 8.7 10^3/uL (1.5-6.6) H 06/05/18 11:05 Lymph # (Auto) 1.7 10^3/uL (1.5-3.5) 06/05/18 11:05 [place] # (Auto) 1.3 10^3/uL (0.0-1.0) H 06/05/18 11:05 Eos # (Auto) 0.4 10^3/uL (0.0-0.7) 06/05/18 11:05 Baso # (Auto) 0.1 10^3/uL (0.0-0.1) 06/05/18 11:05 Absolute Nucleated RBC 0.01 x10^3/uL 06/05/18 11:05 Nucleated RBC % 0.1 /100WBC 06/05/18 11:05 ESR 17 mm/Hr (0-20) 06/06/18 08:19 Sodium 134 mmol/L (135-145) L 06/06/18 04:30 Potassium 3.9 mmol/L (3.5-5.0) 06/06/18 04:30 Chloride 104 mmol/L (101-111) 06/06/18 04:30 Carbon Dioxide 24 mmol/L (21-32) 06/06/18 04:30 Anion Gap 6.0 (6-13) 06/06/18 04:30 BUN 18 mg/dL (6-20) 06/06/18 04:30 Creatinine 0.8 mg/dL (0.6-1.2) 06/06/18 04:30 Estimated GFR (MDRD) 101 (>89) 06/06/18 04:30 Glucose 110 mg/dL (70-100) H 06/06/18 04:30 POC Whole Bld Glucose 88 mg/dL (70 - 100) 06/06/18 07:35 Glycated Hemoglobin 8.8 % (4.6-6.2) H 06/06/18 04:30 Estim Average Glucose 206 (70-100) H 06/06/18 04:30 Lactic Acid 1.1 mmol/L (0.5-2.2) 06/05/18 11:05 Calcium 8.4 mg/dL (8.5-10.3) L 06/06/18 04:30 Ionized Calcium NO 06/06/18 04:30 Total Bilirubin 0.4 mg/dL (0.2-1.0) 06/06/18 04:30 AST 13 IU/L (10-42) 06/06/18 04:30 ALT 16 IU/L (10-60) 06/06/18 04:30 Alkaline Phosphatase 61 IU/L (42-121) 06/06/18 04:30 C-Reactive Protein 2.2 mg/dL (0-1.0) H 06/06/18 04:30 Total Protein 6.1 g/dL (6.7-8.2) L 06/06/18 04:30 Albumin 3.3 g/dL (3.2-5.5) 06/06/18 04:30 Globulin 2.8 g/dL (2.1-4.2) 06/06/18 04:30 Albumin/Globulin Ratio 1.2 (1.0-2.2) 06/06/18 04:30 Lipase 23 U/L (22-51) 06/05/18 11:05 Urine Color YELLOW 06/05/18 11:05 Urine Clarity CLEAR (CLEAR) 06/05/18 11:05 Urine pH 6.0 PH (5.0-7.5) 06/05/18 11:[address] <=1.005 (1.002-1.030) 06/05/18 11:05 Urine Protein NEGATIVE mg/dL (NEGATIVE) 06/05/18 11:05 Urine Glucose (UA) NEGATIVE mg/dL (NEGATIVE) 06/05/18 11:05 Urine Ketones NEGATIVE mg/dL (NEGATIVE) 06/05/18 11:05 Urine Occult Blood NEGATIVE (NEGATIVE) 06/05/18 11:05 Urine Nitrite NEGATIVE (NEGATIVE) 06/05/18 11:05 Urine Bilirubin NEGATIVE (NEGATIVE) 06/05/18 11:05 Urine Urobilinogen 0.2 (NORMAL) E.U./dL (NORMAL) 06/05/18 11:05 Ur Leukocyte Esterase NEGATIVE (NEGATIVE) 06/05/18 11:05 Ur Microscopic Review NOT INDICATED 06/05/18 11:05 Urine Culture Comments NOT INDICATED 06/05/18 11:05 - Procedures Procedures: Procedures DETACHMENT AT LEFT 2ND TOE, COMPLETE, OPEN APPROACH (03/11/16) DETACHMENT AT LEFT 5TH TOE, COMPLETE, OPEN APPROACH (04/30/17) DETACHMENT AT RIGHT 1ST TOE, HIGH, OPEN APPROACH (10/20/16) EXCIS DEBRIDE OF WOUND, INFECT, OR BURN (02/19/15) VENOUS CATHETERIZATION NEC (02/19/15) ABX Reporting Has patient been on IV antibiotics over the past 48 hours?: No Current Medications - Current Medications Current Medications: Laboratory Results WBC 7.0 x10^3/uL (4.8-10.8) 06/06/18 04:30 RBC 4.16 10^6/uL (4.70-6.10) L 06/06/18 04:30 Hgb 14.0 g/dL (14.0-18.0) 06/06/18 04:30 Hct 39.6 % (42.0-52.0) L 06/06/18 04:30 MCV 95.1 fL (80.0-94.0) H 06/06/18 04:30 MCH 33.6 pg (27.0-31.0) H 06/06/18 04:30 MCHC 35.3 g/dL (32.0-36.0) 06/06/18 04:30 RDW 12.7 % (12.0-15.0) 06/06/18 04:30 Plt Count 198 10^3/uL (130-450) 06/06/18 04:30 MPV 9.6 fL (7.4-11.4) 06/06/18 04:30 Neut # (Auto) 8.7 10^3/uL (1.5-6.6) H 06/05/18 11:05 Lymph # (Auto) 1.7 10^3/uL (1.5-3.5) 06/05/18 11:05 [place]row # (Auto) 1.3 10^3/uL (0.0-1.0) H 06/05/18 11:05 Eos # (Auto) 0.4 10^3/uL (0.0-0.7) 06/05/18 11:05 Baso # (Auto) 0.1 10^3/uL (0.0-0.1) 06/05/18 11:05 Absolute Nucleated RBC 0.01 x10^3/uL 06/05/18 11:05 Nucleated RBC % 0.1 /100WBC 06/05/18 11:05 ESR 17 mm/Hr (0-20) 06/06/18 08:19 Sodium 134 mmol/L (135-145) L 06/06/18 04:30 Potassium 3.9 mmol/L (3.5-5.0) 06/06/18 04:30 Chloride 104 mmol/L (101-111) 06/06/18 04:30 Carbon Dioxide 24 mmol/L (21-32) 06/06/18 04:30 Anion Gap 6.0 (6-13) 06/06/18 04:30 BUN 18 mg/dL (6-20) 06/06/18 04:30 Creatinine 0.8 mg/dL (0.6-1.2) 06/06/18 04:30 Estimated GFR (MDRD) 101 (>89) 06/06/18 04:30 Glucose 110 mg/dL (70-100) H 06/06/18 04:30 POC Whole Bld Glucose 154 mg/dL (70 - 100) H 06/06/18 11:48 Glycated Hemoglobin 8.8 % (4.6-6.2) H 06/06/18 04:30 Estim Average Glucose 206 (70-100) H 06/06/18 04:30 Lactic Acid 1.1 mmol/L (0.5-2.2) 06/05/18 11:05 Calcium 8.4 mg/dL (8.5-10.3) L 06/06/18 04:30 Ionized Calcium NO 06/06/18 04:30 Total Bilirubin 0.4 mg/dL (0.2-1.0) 06/06/18 04:30 AST 13 IU/L (10-42) 06/06/18 04:30 ALT 16 IU/L (10-60) 06/06/18 04:30 Alkaline Phosphatase 61 IU/L (42-121) 06/06/18 04:30 C-Reactive Protein 2.2 mg/dL (0-1.0) H 06/06/18 04:30 Total Protein 6.1 g/dL (6.7-8.2) L 06/06/18 04:30 Albumin 3.3 g/dL (3.2-5.5) 06/06/18 04:30 Globulin 2.8 g/dL (2.1-4.2) 06/06/18 04:30 Albumin/Globulin Ratio 1.2 (1.0-2.2) 06/06/18 04:30 Lipase 23 U/L (22-51) 06/05/18 11:05 Urine Color YELLOW 06/05/18 11:05 Urine Clarity CLEAR (CLEAR) 06/05/18 11:05 Urine pH 6.0 PH (5.0-7.5) 06/05/18 11:[address] <=1.005 (1.002-1.030) 06/05/18 11:05 Urine Protein NEGATIVE mg/dL (NEGATIVE) 06/05/18 11:05 Urine Glucose (UA) NEGATIVE mg/dL (NEGATIVE) 06/05/18 11:05 Urine Ketones NEGATIVE mg/dL (NEGATIVE) 06/05/18 11:05 Urine Occult Blood NEGATIVE (NEGATIVE) 06/05/18 11:05 Urine Nitrite NEGATIVE (NEGATIVE) 06/05/18 11:05 Urine Bilirubin NEGATIVE (NEGATIVE) 06/05/18 11:05 Urine Urobilinogen 0.2 (NORMAL) E.U./dL (NORMAL) 06/05/18 11:05 Ur Leukocyte Esterase NEGATIVE (NEGATIVE) 06/05/18 11:05 Ur Microscopic Review NOT INDICATED 06/05/18 11:05 Urine Culture Comments NOT INDICATED 06/05/18 11:05 Active Medications Generic Name Dose Route Start Last Admin Trade Name Freq PRN Reason Stop Dose Admin Acetaminophen 650 mg 06/05/18 12:54 Tylenol PO Q4HR PRN Pain 1 to 4 Atorvastatin Calcium 10 mg 06/06/18 09:00 06/06/18 08:21 Lipitor PO 10 mg DAILY [facility] Administration Diazepam 5 mg 06/05/18 12:51 06/06/18 00:02 Valium PO 5 mg Q6H PRN Administration Spasms Diphenhydramine HCl 25 mg 06/06/18 01:52 06/06/18 02:01 Benadryl Inj IVP 25 mg Q6H PRN Administration Allergy Symptoms Enoxaparin Sodium 40 mg 06/06/18 09:00 06/06/18 08:24 Lovenox SUBQ 40 mg DAILY [facility] Administration Famotidine 20 mg 06/06/18 09:00 06/06/18 08:20 Pepcid PO 20 mg DAILY [facility] Administration Gabapentin 1,200 mg 06/06/18 09:00 06/06/18 08:19 Neurontin PO 1,200 mg DAILY [facility] Administration Piperacillin Sod/Tazobactam 100 mls @ 200 mls/hr 06/05/18 14:00 06/06/18 08: 45 Sod 3.375 gm/ Sodium Chloride IV Infused Q6H [facility] Infusion Sodium Chloride 1,000 mls @ 100 mls/hr 06/05/18 13:00 06/06/18 07:54 Normal Saline 0.9% IV 100 mls/hr .Q10H [facility] Administration Vancomycin HCl 1 gm/ Sodium 250 mls @ 167 mls/hr 06/06/18 00:00 06/06/18 10: 35 Chloride IV Infused Q8H [facility] Infusion Insulin Aspart 1 - 9 unit 06/05/18 21:34 06/06/18 07:56 Novolog SUBQ 06/11/18 23:59 Not Given 0800,1200,1700,2100 [facility] Protocol Insulin Glargine 30 unit 06/05/18 21:00 06/05/18 21:41 Lantus Solostar SUBQ 30 unit QPM [facility] Administration Losartan Potassium 100 mg 06/06/18 09:00 06/06/18 08:20 Cozaar PO 100 mg DAILY [facility] Administration Morphine Sulfate 4 mg 06/06/18 09:18 06/06/18 09:39 Morphine IVP 4 mg Q2H PRN Administration PAIN Nicotine 1 patch 06/05/18 15:00 06/06/18 08:22 Nicoderm TOP 1 patch DAILY [facility] Administration Ondansetron HCl 4 mg 06/05/18 12:54 Zofran Inj IVP Q6HR PRN Nausea / Vomiting Oxycodone HCl 5 mg 06/05/18 12:54 Roxicodone PO Q4HR PRN Pain 5 to 7 Oxycodone HCl 10 mg 06/05/18 12:54 06/05/18 21:54 Roxicodone PO 10 mg Q4HR PRN Administration Pain 8 to 10 Polyethylene Glycol 17 gm 06/06/18 09:00 06/06/18 08:32 Miralax PO Not Given DAILY [facility] Prochlorperazine Edisylate 10 mg 06/05/18 12:54 Compazine Inj IVP Q6HR PRN Nausea / Vomiting Promethazine HCl 25 mg 06/05/18 12:54 Phenergan Inj IM Q6HR PRN Nausea / Vomiting Sodium Chloride 10 ml 06/05/18 12:54 08/25/18 09:47 Normal Saline Flush 0.9% IVP 10 ml PRN PRN Administration NEEDED PER PROVIDER ORDERS Sodium Chloride 10 ml 06/05/18 17:00 06/06/18 00:02 Normal Saline Flush 0.9% IVP 10 ml 0100,0900,1700 [facility] Administration Tramadol HCl 50 mg 06/05/18 12:51 Ultram PO DAILY PRN PAIN Zolpidem Tartrate 5 mg 06/05/18 12:54 06/06/18 00:02 Ambien PO 5 mg QPM PRN Administration Insomnia Insulin Glargine,Hum.rec.anlog [Lantus Solostar] 30 units SQ QPM 03/07/15 Gabapentin 1,200 - 1,500 mg PO DAILY 10/05/16 Sildenafil Citrate [Sildenafil] 20 mg PO DAILY PRN 10/21/16 Atorvastatin Calcium 10 mg PO DAILY 07/31/17 Losartan Potassium 100 mg PO DAILY 07/31/17 Liraglutide [Victoza 2-Florian] 1.2 mg SUBQ DAILY 05/13/18 diazePAM [Valium] 5 mg PO Q6H PRN 05/13/18 traMADol [Ultram] 50 - 100 mg PO DAILY PRN 05/13/18
[2018-06-06] MEDS: INSULIN GLARGINE 300 UNIT/3 ML PEN SUBQ SCH (20:55)
[2018-06-07] MEDS: VANCOMYCIN INJ 1 GM in SODIUM CHLORIDE 0.9% 250 ML IV SCH ×3 (00:05→16:31)
[2018-06-07] MEDS: SODIUM CHLORIDE FLUSH 0.9% 10 ML SYRINGE IVP SCH ×3 (00:05→16:37)
[2018-06-07] MEDS: PIPERACILLIN/TAZOBACTAM 3.375 GM in SODIUM CHLORIDE 0.9% MINIBAG 100 ML IV SCH ×4 (02:04→19:15)
[2018-06-07] MEDS: SODIUM CHLORIDE 0.9% 1,000 ML IV SCH (04:59)
[2018-06-07 07:38] LABS: HGB - HEMOGLOBIN 14.3 g/dL (14.0-18.0); MEAN CORPUSCULAR HEMOGLOBIN 33.2 pg (27.0-31.0); MEAN CORPUSCULAR HGB CONC 35.7 g/dL (32.0-36.0); MEAN CORPUSCULAR VOLUME 93.1 fL (80.0-94.0); MEAN PLATELET VOLUME 8.4 fL (7.4-11.4); RED BLOOD COUNT 4.31 10^6/uL (4.70-6.10); RED CELL DISTRIBUTION WIDTH 12.4 % (12.0-15.0); WHITE BLOOD COUNT 7.6 x10^3/uL (4.8-10.8)
[2018-06-07] MEDS: INSULIN ASPART 300 UNIT/3 ML PEN SUBQ SCH ×4 (07:45→20:45)
[2018-06-07 07:47] LABS: VANCOMYCIN,TROUGH 12.9 ug/mL (10.0-20.0)
[2018-06-07 07:50] LABS: ALBUMIN 3.4 g/dL (3.2-5.5); ALBUMIN/GLOBULIN RATIO 1.1 (1.0-2.2); ALKALINE PHOSPHATASE 64 IU/L (42-121); ALT ALANINE AMINOTRANSFERASE 18 IU/L (10-60); AST ASPARTATE AMINOTRANSFERASE 14 IU/L (10-42); BILIRUBIN,TOTAL 0.8 mg/dL (0.2-1.0); BUN - BLOOD UREA NITROGEN 13 mg/dL (6-20); CALCIUM 8.4 mg/dL (8.5-10.3); CARBON DIOXIDE - CO2 25 mmol/L (21-32); CHLORIDE 104 mmol/L (101-111); CREATININE 0.7 mg/dL (0.6-1.2); GFR - MDRD 118 (>89); GLUCOSE 118 mg/dL (70-100); SODIUM 136 mmol/L (135-145); TOTAL PROTEIN 6.6 g/dL (6.7-8.2)
[2018-06-07] MEDS: SODIUM CHLORIDE FLUSH 0.9% 10 ML SYRINGE IVP PRN ×3 (08:50→20:44)
[2018-06-07] MEDS: LOSARTAN 50 MG TABLET PO SCH (08:53)
[2018-06-07] MEDS: GABAPENTIN 400 MG CAPSULE PO SCH (08:53)
[2018-06-07] MEDS: FAMOTIDINE 20 MG TABLET PO SCH (08:53)
[2018-06-07] MEDS: NICOTINE 21 MG PATCH TOP SCH ×2 (08:54→20:43)
[2018-06-07] MEDS: POLYETHYLENE GLYCOL 3350 17 GM PACKET PO SCH (08:57)
[2018-06-07] MEDS: ATORVASTATIN 10 MG TABLET PO SCH (09:01)
[2018-06-07] MEDS: MORPHINE 2 MG/ML SYRINGE IVP PRN ×3 (09:01→20:43)
--- NOTE | 2018-06-07 09:16 | PROVIDER PROGRESS NOTE ---
Assessment/Plan - Problem List (1) Cellulitis in diabetic foot Assessment/Plan: Patient appears to have cellulitis of his entire right foot. He has significant swelling when compared to the left foot along with erythema, tenderness and has a foul-smelling foot. The patient has mild serosanguineous drainage from an open wound on the plantar aspect of the foot. The patient's x- ray of the right foot does not reveal any evidence of osteomyelitis. The patient has been dealing with this right foot infection for about 3 weeks now. He was previously hospitalized and put on IV antibiotics and then transitioned to oral antibiotics and just completed treatment with oral antibiotics a few days ago. After completing treatment the patient's infection has returned rapidly. The patient is not febrile and does not appear septic on presentation. He does have a mild leukocytosis and significant symptoms of the right foot. He has severe pain and has difficulty ambulating. The patient is interested in getting an amputation of the right foot given that he has had recurrence of infection multiple times and antibiotics do not seem to resolve the infection. Continue IV vancomycin and IV Zosyn day 3 IV morphine for pain control was increased to 4 mg and pain is better controlled Blood cultures negative to date Wound cx growing gram positive cocci awaiting susceptibilities Orthopedic surgery recommends repeat MRI to look for osteomyelitis and to continue IV abx for now Strict control of blood sugars. WBC improved, ESR mildly elevated, CRP mildly elevated, no fevers, foot continues to be swollen and painful Will continue to monitor closely MRI of the foot tomorrow (2) Diabetes mellitus type 2, insulin dependent Conclusion/Plan: Patient has a history of insulin-dependent type 2 diabetes. His last hemoglobin A1c was 8.9. On presentation the patient's blood glucose is elevated at 248. The patient did present with a diabetic foot infection and has had recurrent infections in the past requiring multiple amputations. Continued patient on home dose of Lantus 30 units Hold patient's home dose of Victoza Placed on sliding scale insulin Hemoglobin A1c is 8.8 Monitor blood glucose before meals at bedtime Diabetic diet BG continues to be well controlled in the am but becomes elevated at night as patient does receive 2 snacks in the afternoon and evening (3) HTN (hypertension) Conclusion/Plan: Continued home meds Well controlled Qualifiers: Hypertension type: essential hypertension Qualified Code(s): I10 - Essential (primary) hypertension (4) Peripheral neuropathy Conclusion/Plan: Secondary to DM Patient has limited sensation in bilateral feet hence his recurrent diabetic foot infections and need for previous amputations On home dose of gabapentin Stable (5) Hyperlipidemia Conclusion/Plan: Patient will be continued on his home dose of statin Stable Qualifiers: Hyperlipidemia type: unspecified Qualified Code(s): E78.5 - Hyperlipidemia , unspecified (6) Tobacco abuse Conclusion/Plan: Patient continues to smoke about half a pack a day. He states he is cut down from pack to pack and a half a day which he was doing for the past 25-30 years. He was counseled on the need to quit smoking. Continue nicotine patch - Current Meds Current Meds: Current Medications Generic Name Dose Route Start Last Admin Trade Name Freq PRN Reason Stop Dose Admin Atorvastatin Calcium 10 mg 06/06/18 09:00 06/07/18 09:01 Lipitor PO 10 mg DAILY LILLIAN Administration Diazepam 5 mg 06/05/18 12:51 06/06/18 00:02 Valium PO 5 mg Q6H PRN Administration Spasms Diphenhydramine HCl 25 mg 06/06/18 01:52 06/06/18 02:01 Benadryl Inj IVP 25 mg Q6H PRN Administration Allergy Symptoms Enoxaparin Sodium 40 mg 06/06/18 09:00 06/06/18 08:24 Lovenox SUBQ 40 mg DAILY LILLIAN Administration Famotidine 20 mg 06/06/18 09:00 06/07/18 08:53 Pepcid PO 20 mg DAILY [facility]ILLIAN Administration Gabapentin 1,200 mg 06/06/18 09:00 06/07/18 08:53 Neurontin PO 1,200 mg DAILY LILLIAN Administration Piperacillin Sod/Tazobactam 100 mls @ 200 mls/hr 06/05/18 14:00 06/07/18 08: 50 Sod 3.375 gm/ Sodium Chloride IV 200 mls/hr Q6H LILLIAN Administration Sodium Chloride 1,000 mls @ 100 mls/hr 06/05/18 13:00 06/07/18 04:59 Normal Saline 0.9% IV 100 mls/hr .Q10H LILLIAN Administration Vancomycin HCl 1 gm/ Sodium 250 mls @ 167 mls/hr 06/06/18 00:00 06/07/18 01: 40 Chloride IV Infused Q8H [facility] Infusion Insulin Aspart 1 - 9 unit 06/05/18 21:34 06/07/18 07:45 Novolog SUBQ 06/11/18 23:59 Not Given 0800,1200,1700,2100 [facility] Protocol Insulin Glargine 30 unit 06/05/18 21:00 06/06/18 20:55 Lantus Solostar SUBQ 30 unit QPM LILLIAN Administration Losartan Potassium 100 mg 06/06/18 09:00 06/07/18 08:53 Cozaar PO 100 mg DAILY [facility] Administration Morphine Sulfate 4 mg 06/06/18 09:18 06/07/18 09:01 Morphine IVP 4 mg Q2H PRN Administration PAIN Nicotine 1 patch 06/05/18 15:00 06/07/18 08:54 Nicoderm TOP 1 patch DAILY [facility] Administration Oxycodone HCl 10 mg 06/05/18 12:54 06/05/18 21:54 Roxicodone PO 10 mg Q4HR PRN Administration Pain 8 to 10 Polyethylene Glycol 17 gm 06/06/18 09:00 06/07/18 08:57 Miralax PO Not Given DAILY [facility] Sodium Chloride 10 ml 06/05/18 12:54 06/07/18 08:50 Normal Saline Flush 0.9% IVP 10 ml PRN PRN Administration NEEDED PER PROVIDER ORDERS Sodium Chloride 10 ml 06/05/18 17:00 06/07/18 09:07 Normal Saline Flush 0.9% IVP 10 ml 0100,0900,1700 [facility] Administration Zolpidem Tartrate 5 mg 06/05/18 12:54 06/06/18 00:02 Ambien PO 5 mg QPM PRN Administration Insomnia - Lab Result Fish Bone Diagrams: 06/07/18 07:30 06/07/18 07:30 - Additional Planning Condition/Complexity: Stable My Orders: My Active Orders 06/06/18 09:18 Morphine Inj [Morphine] 4 mg IVP Q2H PRN 06/07/18 00:14 CUL,WOUND (AEROBIC) [RM] Routine 06/08/18 05:00 CBC W/O DIFF (HEMOGRAM) [HEME] DAILYLAB CMP, RFLX TO IONIZED CA IF [CHEM] DAILYLAB CRP - C-REACTIVE PROTEIN [CHEM] DAILYLAB ESR- ERYTHROCYTE SEDIMENT RATE [HEME] DAILYLAB 06/09/18 05:00 CBC W/O DIFF (HEMOGRAM) [HEME] DAILYLAB CMP, RFLX TO IONIZED CA IF [CHEM] DAILYLAB CRP - C-REACTIVE PROTEIN [CHEM] DAILYLAB ESR- ERYTHROCYTE SEDIMENT RATE [HEME] DAILYLAB 06/10/18 05:00 CBC W/O DIFF (HEMOGRAM) [HEME] DAILYLAB CMP, RFLX TO IONIZED CA IF [CHEM] DAILYLAB CRP - C-REACTIVE PROTEIN [CHEM] DAILYLAB ESR- ERYTHROCYTE SEDIMENT RATE [HEME] DAILYLAB Plan Discussed with:: Patient Time Spent: 31-60 minutes Subjective - Subjective Patient Reports: Pain (Continued pain in the right foot), Other (Patient continues to have pain and swelling of the right foot. He denies any fevers or chills.) Objective Vital Signs: Vital Signs - 24 hr 06/06/18 06/07/18 06/07/18 16:05 00:00 07:53 Temperature 36.5 C 36.7 C 36.6 C Heart Rate [ 68 67 63 Brachial] Respiratory 16 18 20 Rate Blood Pressure 147/73 H 140/75 H 127/67 [Right Brachial artery] O2 Saturation 98 96 95 Oxygen O2 Source Room air I&O (Last 24 Hrs): Intake and Output Totals x24h 06/05/18 06/06/18 06/07/18 23:59 23:59 23:59 Intake Total 2648.333 5361.000 1186.667 Output Total 450 Balance 2648.333 4911.000 1186.667 General: Alert, Oriented x3, Cooperative, Mild distress (Pain right foot) HEENT: Atraumatic, PERRLA, EOMI, Mucous membr. moist/pink Neck: Supple, No JVD, No thyromegaly, +2 carotid pulse wo bruit, No LAD Lymphatic: no adenopathy Neuro: Alert, Non Focal, CN 2-12 Grossly Intact, Oriented Times 3 Cardiovascular: Regular rate, Normal S1, Normal S2, No murmurs Respiratory: Chest non-tender, No respiratory distress, Breath sounds nml Abdomen: Normal bowel sounds, Soft, No tenderness, No hepatospenomegaly Extremities: No clubbing, No cyanosis, Other (Right foot swelling, tenderness) Skin: No rashes, No breakdown Comments/Notes: Foot ulcer on the plantar aspect of right foot with no drainage today - Results Results: Laboratory Results WBC 7.6 x10^3/uL (4.8-10.8) 06/07/18 07:30 RBC 4.31 10^6/uL (4.70-6.10) L 06/07/18 07:30 Hgb 14.3 g/dL (14.0-18.0) 06/07/18 07:30 Hct 40.1 % (42.0-52.0) L 06/07/18 07:30 MCV 93.1 fL (80.0-94.0) 06/07/18 07:30 MCH 33.2 pg (27.0-31.0) H 06/07/18 07:30 MCHC 35.7 g/dL (32.0-36.0) 06/07/18 07:30 RDW 12.4 % (12.0-15.0) 06/07/18 07:30 Plt Count 199 10^3/uL (130-450) 06/07/18 07:30 MPV 8.4 fL (7.4-11.4) 06/07/18 07:30 Neut # (Auto) 8.7 10^3/uL (1.5-6.6) H 06/05/18 11:05 Lymph # (Auto) 1.7 10^3/uL (1.5-3.5) 06/05/18 11:05 [place] # (Auto) 1.3 10^3/uL (0.0-1.0) H 06/05/18 11:05 Eos # (Auto) 0.4 10^3/uL (0.0-0.7) 06/05/18 11:05 Baso # (Auto) 0.1 10^3/uL (0.0-0.1) 06/05/18 11:05 Absolute Nucleated RBC 0.01 x10^3/uL 06/05/18 11:05 Nucleated RBC % 0.1 /100WBC 06/05/18 11:05 ESR 22 mm/Hr (0-20) H 06/07/18 07:30 Sodium 136 mmol/L (135-145) 06/07/18 07:30 Potassium 4.0 mmol/L (3.5-5.0) 06/07/18 07:30 Chloride 104 mmol/L (101-111) 06/07/18 07:30 Carbon Dioxide 25 mmol/L (21-32) 06/07/18 07:30 Anion Gap 7.0 (6-13) 06/07/18 07:30 BUN 13 mg/dL (6-20) 06/07/18 07:30 Creatinine 0.7 mg/dL (0.6-1.2) 06/07/18 07:30 Estimated GFR (MDRD) 118 (>89) 06/07/18 07:30 Glucose 118 mg/dL (70-100) H 06/07/18 07:30 POC Whole Bld Glucose 125 mg/dL (70 - 100) H 06/07/18 07:19 Glycated Hemoglobin 8.8 % (4.6-6.2) H 06/06/18 04:30 Estim Average Glucose 206 (70-100) H 06/06/18 04:30 Lactic Acid 1.1 mmol/L (0.5-2.2) 06/05/18 11:05 Calcium 8.4 mg/dL (8.5-10.3) L 06/07/18 07:30 Ionized Calcium NO 06/07/18 07:30 Total Bilirubin 0.8 mg/dL (0.2-1.0) 06/07/18 07:30 AST 14 IU/L (10-42) 06/07/18 07:30 ALT 18 IU/L (10-60) 06/07/18 07:30 Alkaline Phosphatase 64 IU/L (42-121) 06/07/18 07:30 C-Reactive Protein 1.9 mg/dL (0-1.0) H 06/07/18 07:30 Total Protein 6.6 g/dL (6.7-8.2) L 06/07/18 07:30 Albumin 3.4 g/dL (3.2-5.5) 06/07/18 07:30 Globulin 3.2 g/dL (2.1-4.2) 06/07/18 07:30 Albumin/Globulin Ratio 1.1 (1.0-2.2) 06/07/18 07:30 Lipase 23 U/L (22-51) 06/05/18 11:05 Urine Color YELLOW 06/05/18 11:05 Urine Clarity CLEAR (CLEAR) 06/05/18 11:05 Urine pH 6.0 PH (5.0-7.5) 06/05/18 11:05 Ur Specific Catherine <=1.005 (1.002-1.030) 06/05/18 11:05 Urine Protein NEGATIVE mg/dL (NEGATIVE) 06/05/18 11:05 Urine Glucose (UA) NEGATIVE mg/dL (NEGATIVE) 06/05/18 11:05 Urine Ketones NEGATIVE mg/dL (NEGATIVE) 06/05/18 11:05 Urine Occult Blood NEGATIVE (NEGATIVE) 06/05/18 11:05 Urine Nitrite NEGATIVE (NEGATIVE) 06/05/18 11:05 Urine Bilirubin NEGATIVE (NEGATIVE) 06/05/18 11:05 Urine Urobilinogen 0.2 (NORMAL) E.U./dL (NORMAL) 06/05/18 11:05 Ur Leukocyte Esterase NEGATIVE (NEGATIVE) 06/05/18 11:05 Ur Microscopic Review NOT INDICATED 06/05/18 11:05 Urine Culture Comments NOT INDICATED 06/05/18 11:05 Last Dose Date UNK 06/07/18 07:30 Last Dose Time UNK 06/07/18 07:30 Vancomycin Trough 12.9 ug/mL (10.0-20.0) 06/07/18 07:30 - Procedures Procedures: Procedures DETACHMENT AT LEFT 2ND TOE, COMPLETE, OPEN APPROACH (03/11/16) DETACHMENT AT LEFT 5TH TOE, COMPLETE, OPEN APPROACH (04/30/17) DETACHMENT AT RIGHT 1ST TOE, HIGH, OPEN APPROACH (10/20/16) EXCIS DEBRIDE OF WOUND, INFECT, OR BURN (02/19/15) VENOUS CATHETERIZATION NEC (02/19/15) ABX Reporting Has patient been on IV antibiotics over the past 48 hours?: Yes Current Medications - Current Medications Current Medications: Active Medications Generic Name Dose Route Start Last Admin Trade Name Freq PRN Reason Stop Dose Admin Acetaminophen 650 mg 06/05/18 12:54 Tylenol PO Q4HR PRN Pain 1 to 4 Atorvastatin Calcium 10 mg 06/06/18 09:00 06/07/18 09:01 Lipitor PO 10 mg DAILY [facility] Administration Diazepam 5 mg 06/05/18 12:51 06/06/18 00:02 Valium PO 5 mg Q6H PRN Administration Spasms Diphenhydramine HCl 25 mg 06/06/18 01:52 06/06/18 02:01 Benadryl Inj IVP 25 mg Q6H PRN Administration Allergy Symptoms Enoxaparin Sodium 40 mg 06/06/18 09:00 06/06/18 08:24 Lovenox SUBQ 40 mg DAILY [facility] Administration Famotidine 20 mg 06/06/18 09:00 06/07/18 08:53 Pepcid PO 20 mg DAILY [facility] Administration Gabapentin 1,200 mg 06/06/18 09:00 06/07/18 08:53 Neurontin PO 1,200 mg DAILY [facility] Administration Piperacillin Sod/Tazobactam 100 mls @ 200 mls/hr 06/05/18 14:00 06/07/18 08: 50 Sod 3.375 gm/ Sodium Chloride IV 200 mls/hr Q6H [facility] Administration Sodium Chloride 1,000 mls @ 100 mls/hr 06/05/18 13:00 06/07/18 04:59 Normal Saline 0.9% IV 100 mls/hr .Q10H [facility] Administration Vancomycin HCl 1 gm/ Sodium 250 mls @ 167 mls/hr 06/06/18 00:00 06/07/18 01: 40 Chloride IV Infused Q8H [facility] Infusion Insulin Aspart 1 - 9 unit 06/05/18 21:34 06/07/18 07:45 Novolog SUBQ 06/11/18 23:59 Not Given 0800,1200,1700,2100 [facility] Protocol Insulin Glargine 30 unit 06/05/18 21:00 06/06/18 20:55 Lantus Solostar SUBQ 30 unit QPM [facility] Administration Losartan Potassium 100 mg 06/06/18 09:00 06/07/18 08:53 Cozaar PO 100 mg DAILY [facility] Administration Morphine Sulfate 4 mg 06/06/18 09:18 06/07/18 09:01 Morphine IVP 4 mg Q2H PRN Administration PAIN Nicotine 1 patch 06/05/18 15:00 06/07/18 08:54 Nicoderm TOP 1 patch DAILY [facility] Administration Ondansetron HCl 4 mg 06/05/18 12:54 Zofran Inj IVP Q6HR PRN Nausea / Vomiting Oxycodone HCl 5 mg 06/05/18 12:54 Roxicodone PO Q4HR PRN Pain 5 to 7 Oxycodone HCl 10 mg 06/05/18 12:54 06/05/18 21:54 Roxicodone PO 10 mg Q4HR PRN Administration Pain 8 to 10 Polyethylene Glycol 17 gm 06/06/18 09:00 06/07/18 08:57 Miralax PO Not Given DAILY [facility] Prochlorperazine Edisylate 10 mg 06/05/18 12:54 Compazine Inj IVP Q6HR PRN Nausea / Vomiting Promethazine HCl 25 mg 06/05/18 12:54 Phenergan Inj IM Q6HR PRN Nausea / Vomiting Sodium Chloride 10 ml 06/05/18 12:54 06/07/18 08:50 Normal Saline Flush 0.9% IVP 10 ml PRN PRN Administration NEEDED PER PROVIDER ORDERS Sodium Chloride 10 ml 06/05/18 17:00 06/07/18 09:07 Normal Saline Flush 0.9% IVP 10 ml 0100,0900,1700 [facility] Administration Tramadol HCl 50 mg 06/05/18 12:51 Ultram PO DAILY PRN PAIN Zolpidem Tartrate 5 mg 06/05/18 12:54 06/06/18 00:02 Ambien PO 5 mg QPM PRN Administration Insomnia Insulin Glargine,Hum.rec.anlog [Lantus Solostar] 30 units SQ QPM 03/07/15 Gabapentin 1,200 - 1,500 mg PO DAILY 10/05/16 Sildenafil Citrate [Sildenafil] 20 mg PO DAILY PRN 10/21/16 Atorvastatin Calcium 10 mg PO DAILY 07/31/17 Losartan Potassium 100 mg PO DAILY 07/31/17 Liraglutide [Victoza 2-Florian] 1.2 mg SUBQ DAILY 05/13/18 diazePAM [Valium] 5 mg PO Q6H PRN 05/13/18 traMADol [Ultram] 50 - 100 mg PO DAILY PRN 05/13/18
--- NOTE | 2018-06-07 13:57 | CONSULTATION NOTE ---
DATE OF SERVICE: 06/07/2018 Physician: Eric Yost MD ATTENDING/REQUESTING PHYSICIAN: Dillan Curran MD REASON FOR CONSULTATION: Infected diabetic foot ulcer, right foot. HISTORY OF PRESENT ILLNESS: The patient is a patient well [facility] well as [facility] in the hospital because of his frequent problems with his feet relative to diabetes requiring repeated admissions, toe amputations, and antibiotic care. The patient most recently has had repeated admissions because of infection in his right foot arising from a pressure diabetic ulceration beneath the fifth metatarsal head. The patient has had repeated episodes of flareup of cellulitis in his right foot because of this. 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 His prior medical history is reviewed and is documented in his hospital note. The patient's current complaint to me is that he is fed up with his foot the way it is. He would like to have it amputated in one form or another. He is having pain at the fifth metatarsal head and neck. He does report his cellulitis significantly improved since admission, and he has been up and ambulatory. PHYSICAL EXAMINATION: Patient's physical exam shows the patient to be a 52-year -old. He is not in distress. He is routinely slightly manic and agitated, so sometimes history and discussion are compromised a bit because of this, but his foot reveals a limited ulceration directly beneath the fifth metatarsal head that has mild serosanguineous oozing, no significant surrounding cellulitis, but definite prominence of that area of his foot causing potential localization of stress and pressure beneath that metatarsal head. The remaining digits are intact. There is no skin breakdown. There is no dorsal foot swelling at this time, and his foot is warm with 2+ pulses. Movement of the toe or palpation around the area causes pain. STUDIES Laboratory values showed that the patient entered the hospital with a white count of 12.1 and fairly normal electrolytes, normal sed rate. X-rays have been done. An MRI is pending. 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 PLAN: I have had a discussion with the patient about proceeding to MRI scan of this area and consideration of an amputation of the fifth toe and part of the fifth metatarsal to help try to resolve this problem and allow healing and a return to his normal lifestyle with emphasis on obtaining proper diabetic shoe wear and proper care. I will follow this patient and review his MRI scheduled for tomorrow and a possible surgery to follow. TD: 06/07/2018 09:06 RBOBY
[2018-06-07] MEDS: INSULIN GLARGINE 300 UNIT/3 ML PEN SUBQ SCH (20:44)
[2018-06-08] MEDS: MORPHINE 2 MG/ML SYRINGE IVP PRN ×3 (00:22→16:13)
[2018-06-08] MEDS: VANCOMYCIN INJ 1 GM in SODIUM CHLORIDE 0.9% 250 ML IV SCH ×3 (00:35→16:12)
[2018-06-08] MEDS: SODIUM CHLORIDE FLUSH 0.9% 10 ML SYRINGE IVP SCH ×3 (00:36→16:13)
[2018-06-08] MEDS: PIPERACILLIN/TAZOBACTAM 3.375 GM in SODIUM CHLORIDE 0.9% MINIBAG 100 ML IV SCH ×2 (02:09→09:15)
[2018-06-08 05:13] LABS: HGB - HEMOGLOBIN 14.1 g/dL (14.0-18.0); MEAN CORPUSCULAR HEMOGLOBIN 33.1 pg (27.0-31.0); MEAN CORPUSCULAR HGB CONC 35.2 g/dL (32.0-36.0); MEAN PLATELET VOLUME 8.5 fL (7.4-11.4); RED BLOOD COUNT 4.26 10^6/uL (4.70-6.10); RED CELL DISTRIBUTION WIDTH 12.4 % (12.0-15.0); WHITE BLOOD COUNT 6.3 x10^3/uL (4.8-10.8)
[2018-06-08 05:26] LABS: ALBUMIN 3.5 g/dL (3.2-5.5); ALBUMIN/GLOBULIN RATIO 1.1 (1.0-2.2); ALKALINE PHOSPHATASE 62 IU/L (42-121); ALT ALANINE AMINOTRANSFERASE 19 IU/L (10-60); AST ASPARTATE AMINOTRANSFERASE 15 IU/L (10-42); BILIRUBIN,TOTAL < 0.2 mg/dL (0.2-1.0); BUN - BLOOD UREA NITROGEN 19 mg/dL (6-20); CALCIUM 8.9 mg/dL (8.5-10.3); CARBON DIOXIDE - CO2 26 mmol/L (21-32); CHLORIDE 102 mmol/L (101-111); CREATININE 0.7 mg/dL (0.6-1.2); GFR - MDRD 118 (>89); GLUCOSE 136 mg/dL (70-100); SODIUM 136 mmol/L (135-145); TOTAL PROTEIN 6.6 g/dL (6.7-8.2)
[2018-06-08] MEDS: POLYETHYLENE GLYCOL 3350 17 GM PACKET PO SCH (08:37)
[2018-06-08] MEDS: INSULIN ASPART 300 UNIT/3 ML PEN SUBQ SCH ×6 (08:37→21:20)
[2018-06-08] MEDS: LOSARTAN 50 MG TABLET PO SCH (09:07)
[2018-06-08] MEDS: ATORVASTATIN 10 MG TABLET PO SCH (09:07)
[2018-06-08] MEDS: FAMOTIDINE 20 MG TABLET PO SCH (09:07)
[2018-06-08] MEDS: GABAPENTIN 400 MG CAPSULE PO SCH (09:07)
[2018-06-08] MEDS: NICOTINE 21 MG PATCH TOP SCH (09:11)
--- NOTE | 2018-06-08 09:12 | MRI Report ---
Reason: Rule out osteomyelitis Procedure Date: 06/08/2018 Accession Number: [id number] / [id number] Procedure: MRI - Foot RT W/O CPT Code: FULL RESULT: EXAM: RIGHT MIDFOOT MRI WITHOUT CONTRAST EXAM DATE: 06/08/2018 08:50 AM. CLINICAL HISTORY: Tenders lateral side. COMPARISON: Foot 3 view right 06/05/2018. TECHNIQUE: Multiplanar, multisequence T1-weighted and fluid-sensitive sequences of the midfoot without contrast. Other: None. FINDINGS: Bones: There is focal soft tissue edema overlying the plantar aspect of the head of the fifth metatarsal with adjacent skin erosion. The findings suggest focal inflammation. The underlying head and neck of the fifth metatarsal appear normal. There is moderate osteoarthritis of the first metatarsophalangeal joint. There is mild degenerative change of the interphalangeal joints. There is a cyst in the subchondral bone of the proximal surface of the cuboid suggestive of prior trauma. Articular Cartilage: See above. Ligaments: Unremarkable. Tendons: There is marked thickening of the flexor hallucis longus tendon, worst along the plantar aspect of the first metatarsal shaft. There is increased T1 and T2 signal centrally, suggesting a partial-thickness tear. The distal peroneus longus tendon also appears thickened suggestive of tendinosis. Musculature: No edema or fatty atrophy. Other: No effusions. The visualized portion of the tarsal tunnel is unremarkable. No intermetatarsal bursitis. The subcutaneous tissues are unremarkable. IMPRESSION: 1. No bony edema to suggest osteomyelitis. 2. 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 Partial-thickness tear of flexor hallucis longus. 3. 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 4. Posttraumatic degenerative change at the calcaneocuboid joint. RADIA MUSCULOSKELETAL RADIOLOGY SECTION
[2018-06-08] MEDS: ENOXAPARIN 40 MG/0.4 ML SYRINGE SUBQ SCH (09:16)
--- NOTE | 2018-06-08 11:07 | PROVIDER PROGRESS NOTE ---
Assessment/Plan - Problem List (1) Cellulitis in diabetic foot Assessment/Plan: Patient appears to have cellulitis of his entire right foot. He has significant swelling when compared to the left foot along with erythema, tenderness and has a foul-smelling foot. The patient has mild serosanguineous drainage from an open wound on the plantar aspect of the foot. The patient's x- ray of the right foot does not reveal any evidence of osteomyelitis. The patient has been dealing with this right foot infection for about 3 weeks now. He was previously hospitalized and put on IV antibiotics and then transitioned to oral antibiotics and just completed treatment with oral antibiotics a few days ago. After completing treatment the patient's infection has returned rapidly. The patient is not febrile and does not appear septic on presentation. He does have a mild leukocytosis and significant symptoms of the right foot. He has severe pain and has difficulty ambulating. The patient is interested in getting an amputation of the right foot given that he has had recurrence of infection multiple times and antibiotics do not seem to resolve the infection. Continue IV vancomycin day 4 Pain is controlled with IV morphine MRI of the foot negative for osteomyelitis Blood cultures negative to date Wound cx growing staph aureus awaiting susceptibilities discontinue zosyn today and de-escalate further depending on susceptibilities Strict control of blood sugars. WBC NL, ESR NL, CRP mildly elevated, no fevers, foot continues to be swollen but looks improved Will continue to monitor closely Ortho saw patient yesterday and are planning for partial amputation of the right foot given recurrent infections and patients poor compliance with treatment After amputation will discuss with Dr Yost if patient needs to be continued on IV abx or if he could switch to PO abx. Patient would prefer a PICC line and IV abx if possible but this will also depend on cx results (2) Diabetes mellitus type 2, insulin dependent Conclusion/Plan: Patient has a history of insulin-dependent type 2 diabetes. His last hemoglobin A1c was 8.9. On presentation the patient's blood glucose is elevated at 248. The patient did present with a diabetic foot infection and has had recurrent infections in the past requiring multiple amputations. Continued patient on home dose of Lantus 30 units Holding patient's home dose of Victoza Placed on sliding scale insulin Hemoglobin A1c is 8.8 Monitor blood glucose before meals at bedtime Diabetic diet BG is good in the am but continues to increase as day goes on therefore will add novolog 5U with lunch and dinner (3) HTN (hypertension) Conclusion/Plan: Continued home meds Well controlled Qualifiers: Hypertension type: essential hypertension Qualified Code(s): I10 - Essential (primary) hypertension (4) Peripheral neuropathy Conclusion/Plan: Secondary to DM Patient has limited sensation in bilateral feet hence his recurrent diabetic foot infections and need for previous amputations On home dose of gabapentin Stable (5) Hyperlipidemia Conclusion/Plan: Patient will be continued on his home dose of statin Stable Qualifiers: Hyperlipidemia type: unspecified Qualified Code(s): E78.5 - Hyperlipidemia , unspecified (6) Tobacco abuse Conclusion/Plan: Patient continues to smoke about half a pack a day. He states he is cut down from pack to pack and a half a day which he was doing for the past 25-30 years. He was counseled on the need to quit smoking. Continue nicotine patch - Current Meds Current Meds: Current Medications Generic Name Dose Route Start Last Admin Trade Name Freq PRN Reason Stop Dose Admin Atorvastatin Calcium 10 mg 06/06/18 09:00 06/08/18 09:07 Lipitor PO 10 mg DAILY LILLIAN Administration Diazepam 5 mg 06/05/18 12:51 06/06/18 00:02 Valium PO 5 mg Q6H PRN Administration Spasms Diphenhydramine HCl 25 mg 06/06/18 01:52 06/06/18 02:01 Benadryl Inj IVP 25 mg Q6H PRN Administration Allergy Symptoms Enoxaparin Sodium 40 mg 06/06/18 09:00 06/08/18 09:16 Lovenox SUBQ 40 mg DAILY LILLIAN Administration Famotidine 20 mg 06/06/18 09:00 06/08/18 09:07 Pepcid PO 20 mg DAILY LILLIAN Administration Gabapentin 1,200 mg 06/06/18 09:00 06/08/18 09:07 Neurontin PO 1,200 mg DAILY LILLIAN Administration Piperacillin Sod/Tazobactam 100 mls @ 200 mls/hr 06/05/18 14:00 06/08/18 09: 45 Sod 3.375 gm/ Sodium Chloride IV Infused Q6H LILLIAN Infusion Vancomycin HCl 1 gm/ Sodium 250 mls @ 167 mls/hr 06/06/18 00:00 06/08/18 09: 48 Chloride IV 167 mls/hr Q8H LILLIAN Administration Insulin Aspart 3 - 11 unit 06/07/18 17:00 06/08/18 08:37 Novolog SUBQ Not Given 0800,1200,1700,2100 [facility] Protocol Insulin Glargine 30 unit 06/05/18 21:00 06/07/18 20:44 Lantus Solostar SUBQ 30 unit QPM LILLIAN Administration Losartan Potassium 100 mg 06/06/18 09:00 06/08/18 09:07 Cozaar PO 100 mg DAILY LILLIAN Administration Morphine Sulfate 4 mg 06/06/18 09:18 06/08/18 09:08 Morphine IVP 4 mg Q2H PRN Administration PAIN Nicotine 1 patch 06/05/18 15:00 06/08/18 09:11 Nicoderm TOP 1 patch DAILY [facility] Administration Oxycodone HCl 10 mg 06/05/18 12:54 06/05/18 21:54 Roxicodone PO 10 mg Q4HR PRN Administration Pain 8 to 10 Polyethylene Glycol 17 gm 06/06/18 09:00 06/08/18 08:37 Miralax PO Not Given DAILY [facility] Sodium Chloride 10 ml 06/05/18 12:54 06/07/18 20:44 Normal Saline Flush 0.9% IVP 10 ml PRN PRN Administration NEEDED PER PROVIDER ORDERS Sodium Chloride 10 ml 06/05/18 17:00 06/08/18 09:07 Normal Saline Flush 0.9% IVP 10 ml 0100,0900,1700 [facility] Administration Zolpidem Tartrate 5 mg 06/05/18 12:54 06/06/18 00:02 Ambien PO 5 mg QPM PRN Administration Insomnia - Lab Result Lab results reviewed: Yes Fish Bone Diagrams: 06/08/18 05:00 06/08/18 05:00 - Diagnostic Imaging Results Diagnostic Imaging Results: Final report reviewed Diagnostic Imaging Results Comments: MRI of the right foot: Impression: 1. No bony edema to suggest osteomyelitis 2. Tendinosis of flexor hallux is longus and peroneus longus. Partial- thickness tear of flexor hallucis longus. 3. 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 4. Posttraumatic degenerative change at the calcaneocuboid joint - Additional Planning Condition/Complexity: Stable My Orders: My Active Orders 06/07/18 17:00 Insulin Aspart [NovoLOG] 3 - 11 unit SUBQ 0800,1200,1700,2100 06/08/18 11:10 Insulin Aspart [NovoLOG] 5 unit SUBQ BIDWM 06/08/18 Lunch Carb-controlled Diet [DIET] 06/09/18 00:01 NPO except Meds at Midnight [DIET] 06/09/18 05:00 CBC W/O DIFF (HEMOGRAM) [HEME] DAILYLAB CMP, RFLX TO IONIZED CA IF [CHEM] DAILYLAB CRP - C-REACTIVE PROTEIN [CHEM] DAILYLAB ESR- ERYTHROCYTE SEDIMENT RATE [HEME] DAILYLAB 06/10/18 05:00 CBC W/O DIFF (HEMOGRAM) [HEME] DAILYLAB CMP, RFLX TO IONIZED CA IF [CHEM] DAILYLAB CRP - C-REACTIVE PROTEIN [CHEM] DAILYLAB ESR- ERYTHROCYTE SEDIMENT RATE [HEME] DAILYLAB Consult/Specialty: Other (Ortho) Plan Discussed with:: Patient Time Spent: 31-60 minutes Subjective - Subjective Patient Reports: Resting Comfortably, Pain (Still has pain in his foot intermittently), Other (Foot swelling has improved and drainage from wound has resolved) Nursing Reports: No Complaints Objective Vital Signs: Vital Signs - 24 hr 06/07/18 06/08/18 06/08/18 15:53 00:00 08:00 Temperature 36.8 C 36.4 C L 36.5 C Heart Rate [ 69 71 65 Brachial] Respiratory 16 16 18 Rate Blood Pressure 158/82 H 120/69 141/85 H [Right Brachial artery] O2 Saturation 97 95 97 Oxygen O2 Source Room air I&O (Last 24 Hrs): Intake and Output Totals x24h 06/06/18 06/07/18 06/08/18 23:59 23:59 23:59 Intake Total 5361.000 4558.667 1070 Output Total 450 Balance 4911.000 4558.667 1070 General: Alert, Oriented x3, Cooperative, No acute distress HEENT: Atraumatic, PERRLA, EOMI, Mucous membr. moist/pink Neck: Supple, No JVD, No thyromegaly, +2 carotid pulse wo bruit, No LAD Lymphatic: no adenopathy Neuro: Alert, Non Focal, CN 2-12 Grossly Intact, Oriented Times 3 Cardiovascular: Regular rate, Normal S1, Normal S2, No murmurs Respiratory: Chest non-tender, No respiratory distress, Breath sounds nml Abdomen: Normal bowel sounds, Soft, No tenderness, No hepatospenomegaly Extremities: No clubbing, No cyanosis, No edema, Normal pulses, Other (RIght foot swollen but improving with decreased warmth and redness. line tender to touch.) Skin: No rashes, No breakdown Comments/Notes: Swelling of the right foot,. - Results Results: Laboratory Results WBC 6.3 x10^3/uL (4.8-10.8) 06/08/18 05:00 RBC 4.26 10^6/uL (4.70-6.10) L 06/08/18 05:00 Hgb 14.1 g/dL (14.0-18.0) 06/08/18 05:00 Hct 40.0 % (42.0-52.0) L 06/08/18 05:00 MCV 94.0 fL (80.0-94.0) 06/08/18 05:00 MCH 33.1 pg (27.0-31.0) H 06/08/18 05:00 MCHC 35.2 g/dL (32.0-36.0) 06/08/18 05:00 RDW 12.4 % (12.0-15.0) 06/08/18 05:00 Plt Count 205 10^3/uL (130-450) 06/08/18 05:00 MPV 8.5 fL (7.4-11.4) 06/08/18 05:00 Neut # (Auto) 8.7 10^3/uL (1.5-6.6) H 06/05/18 11:05 Lymph # (Auto) 1.7 10^3/uL (1.5-3.5) 06/05/18 11:05 [place] # (Auto) 1.3 10^3/uL (0.0-1.0) H 06/05/18 11:05 Eos # (Auto) 0.4 10^3/uL (0.0-0.7) 06/05/18 11:05 Baso # (Auto) 0.1 10^3/uL (0.0-0.1) 06/05/18 11:05 Absolute Nucleated RBC 0.01 x10^3/uL 06/05/18 11:05 Nucleated RBC % 0.1 /100WBC 06/05/18 11:05 ESR 18 mm/Hr (0-20) 06/08/18 05:00 Sodium 136 mmol/L (135-145) 06/08/18 05:00 Potassium 4.0 mmol/L (3.5-5.0) 06/08/18 05:00 Chloride 102 mmol/L (101-111) 06/08/18 05:00 Carbon Dioxide 26 mmol/L (21-32) 06/08/18 05:00 Anion Gap 8.0 (6-13) 06/08/18 05:00 BUN 19 mg/dL (6-20) 06/08/18 05:00 Creatinine 0.7 mg/dL (0.6-1.2) 06/08/18 05:00 Estimated GFR (MDRD) 118 (>89) 06/08/18 05:00 Glucose 136 mg/dL (70-100) H 06/08/18 05:00 POC Whole Bld Glucose 129 mg/dL (70 - 100) H 06/08/18 07:33 Glycated Hemoglobin 8.8 % (4.6-6.2) H 06/06/18 04:30 Estim Average Glucose 206 (70-100) H 06/06/18 04:30 Lactic Acid 1.1 mmol/L (0.5-2.2) 06/05/18 11:05 Calcium 8.9 mg/dL (8.5-10.3) 06/08/18 05:00 Ionized Calcium NO 06/08/18 05:00 Total Bilirubin < 0.2 mg/dL (0.2-1.0) L 06/08/18 05:00 AST 15 IU/L (10-42) 06/08/18 05:00 ALT 19 IU/L (10-60) 06/08/18 05:00 Alkaline Phosphatase 62 IU/L (42-121) 06/08/18 05:00 C-Reactive Protein 1.5 mg/dL (0-1.0) H 06/08/18 05:00 Total Protein 6.6 g/dL (6.7-8.2) L 06/08/18 05:00 Albumin 3.5 g/dL (3.2-5.5) 06/08/18 05:00 Globulin 3.1 g/dL (2.1-4.2) 06/08/18 05:00 Albumin/Globulin Ratio 1.1 (1.0-2.2) 06/08/18 05:00 Lipase 23 U/L (22-51) 06/05/18 11:05 Urine Color YELLOW 06/05/18 11:05 Urine Clarity CLEAR (CLEAR) 06/05/18 11:05 Urine pH 6.0 PH (5.0-7.5) 06/05/18 11:05 Ur Specific [place] <=1.005 (1.002-1.030) 06/05/18 11:05 Urine Protein NEGATIVE mg/dL (NEGATIVE) 06/05/18 11:05 Urine Glucose (UA) NEGATIVE mg/dL (NEGATIVE) 06/05/18 11:05 Urine Ketones NEGATIVE mg/dL (NEGATIVE) 06/05/18 11:05 Urine Occult Blood NEGATIVE (NEGATIVE) 06/05/18 11:05 Urine Nitrite NEGATIVE (NEGATIVE) 06/05/18 11:05 Urine Bilirubin NEGATIVE (NEGATIVE) 06/05/18 11:05 Urine Urobilinogen 0.2 (NORMAL) E.U./dL (NORMAL) 06/05/18 11:05 Ur Leukocyte Esterase NEGATIVE (NEGATIVE) 06/05/18 11:05 Ur Microscopic Review NOT INDICATED 06/05/18 11:05 Urine Culture Comments NOT INDICATED 06/05/18 11:05 Last Dose Date UNK 06/07/18 07:30 Last Dose Time UNK 06/07/18 07:30 Vancomycin Trough 12.9 ug/mL (10.0-20.0) 06/07/18 07:30 - Procedures Procedures: Procedures DETACHMENT AT LEFT 2ND TOE, COMPLETE, OPEN APPROACH (03/11/16) DETACHMENT AT LEFT 5TH TOE, COMPLETE, OPEN APPROACH (04/30/17) DETACHMENT AT RIGHT 1ST TOE, HIGH, OPEN APPROACH (10/20/16) EXCIS DEBRIDE OF WOUND, INFECT, OR BURN (02/19/15) VENOUS CATHETERIZATION NEC (02/19/15) ABX Reporting Has patient been on IV antibiotics over the past 48 hours?: Yes Current Medications - Current Medications Current Medications: Active Medications Generic Name Dose Route Start Last Admin Trade Name Freq PRN Reason Stop Dose Admin Acetaminophen 650 mg 06/05/18 12:54 Tylenol PO Q4HR PRN Pain 1 to 4 Atorvastatin Calcium 10 mg 06/06/18 09:00 06/08/18 09:07 Lipitor PO 10 mg DAILY LILLIAN Administration Diazepam 5 mg 06/05/18 12:51 06/06/18 00:02 Valium PO 5 mg Q6H PRN Administration Spasms Diphenhydramine HCl 25 mg 06/06/18 01:52 06/06/18 02:01 Benadryl Inj IVP 25 mg Q6H PRN Administration Allergy Symptoms Enoxaparin Sodium 40 mg 06/06/18 09:00 06/08/18 09:16 Lovenox SUBQ 40 mg DAILY LILLIAN Administration Famotidine 20 mg 06/06/18 09:00 06/08/18 09:07 Pepcid PO 20 mg DAILY LILLIAN Administration Gabapentin 1,200 mg 06/06/18 09:00 06/08/18 09:07 Neurontin PO 1,200 mg DAILY LILLIAN Administration Vancomycin HCl 1 gm/ Sodium 250 mls @ 167 mls/hr 06/06/18 00:00 06/08/18 11: 18 Chloride IV Infused Q8H LILLIAN Infusion Insulin Aspart 3 - 11 unit 06/07/18 17:00 06/08/18 11:58 Novolog SUBQ 7 unit 0800,1200,1700,2100 [facility] Administration Protocol Insulin Aspart 5 unit 06/08/18 12:00 06/08/18 11:58 Novolog SUBQ 5 unit 1200,1700 [facility] Administration Insulin Glargine 30 unit 06/05/18 21:00 06/07/18 20:44 Lantus Solostar SUBQ 30 unit QPM LILLIAN Administration Losartan Potassium 100 mg 06/06/18 09:00 06/08/18 09:07 Cozaar PO 100 mg DAILY LILLIAN Administration Morphine Sulfate 4 mg 06/06/18 09:18 06/08/18 09:08 Morphine IVP 4 mg Q2H PRN Administration PAIN Nicotine 1 patch 06/05/18 15:00 06/08/18 09:11 Nicoderm TOP 1 patch DAILY LILLIAN Administration Ondansetron HCl 4 mg 06/05/18 12:54 Zofran Inj IVP Q6HR PRN Nausea / Vomiting Oxycodone HCl 5 mg 06/05/18 12:54 Roxicodone PO Q4HR PRN Pain 5 to 7 Oxycodone HCl 10 mg 06/05/18 12:54 06/05/18 21:54 Roxicodone PO 10 mg Q4HR PRN Administration Pain 8 to 10 Polyethylene Glycol 17 gm 06/06/18 09:00 06/08/18 08:37 Miralax PO Not Given DAILY LILLIAN Prochlorperazine Edisylate 10 mg 06/05/18 12:54 Compazine Inj IVP Q6HR PRN Nausea / Vomiting Promethazine HCl 25 mg 06/05/18 12:54 Phenergan Inj IM Q6HR PRN Nausea / Vomiting Sodium Chloride 10 ml 06/05/18 12:54 06/07/18 20:44 Normal Saline Flush 0.9% IVP 10 ml PRN PRN Administration NEEDED PER PROVIDER ORDERS Sodium Chloride 10 ml 06/05/18 17:00 06/08/18 09:07 Normal Saline Flush 0.9% IVP 10 ml 0100,0900,1700 [facility] Administration Tramadol HCl 50 mg 06/05/18 12:51 Ultram PO DAILY PRN PAIN Zolpidem Tartrate 5 mg 06/05/18 12:54 06/06/18 00:02 Ambien PO 5 mg QPM PRN Administration Insomnia Insulin Glargine,Hum.rec.anlog [Lantus Solostar] 30 units SQ QPM 03/07/15 Gabapentin 1,200 - 1,500 mg PO DAILY 10/05/16 Sildenafil Citrate [Sildenafil] 20 mg PO DAILY PRN 10/21/16 Atorvastatin Calcium 10 mg PO DAILY 07/31/17 Losartan Potassium 100 mg PO DAILY 07/31/17 Liraglutide [Victoza 2-Florian] 1.2 mg SUBQ DAILY 05/13/18 diazePAM [Valium] 5 mg PO Q6H PRN 05/13/18 traMADol [Ultram] 50 - 100 mg PO DAILY PRN 05/13/18
[2018-06-08] MEDS: oxyCODONE 5 MG TABLET PO PRN (18:29)
[2018-06-08] MEDS: INSULIN GLARGINE 300 UNIT/3 ML PEN SUBQ SCH (21:22)
[2018-06-08] MEDS: diphenhydrAMINE INJ 50 MG/ML VIAL IVP PRN (21:49)
[2018-06-09] MEDS: VANCOMYCIN INJ 1 GM in SODIUM CHLORIDE 0.9% 250 ML IV SCH ×3 (00:07→15:56)
[2018-06-09] MEDS: SODIUM CHLORIDE FLUSH 0.9% 10 ML SYRINGE IVP SCH ×3 (00:08→18:09)
[2018-06-09] MEDS: SODIUM CHLORIDE FLUSH 0.9% 10 ML SYRINGE IVP PRN ×3 (00:49→21:51)
[2018-06-09] MEDS: MORPHINE 2 MG/ML SYRINGE IVP PRN ×6 (00:49→21:51)
[2018-06-09 05:26] LABS: HGB - HEMOGLOBIN 14.3 g/dL (14.0-18.0); MEAN CORPUSCULAR HEMOGLOBIN 33.1 pg (27.0-31.0); MEAN CORPUSCULAR HGB CONC 35.3 g/dL (32.0-36.0); MEAN CORPUSCULAR VOLUME 93.8 fL (80.0-94.0); MEAN PLATELET VOLUME 7.8 fL (7.4-11.4); RED BLOOD COUNT 4.31 10^6/uL (4.70-6.10); RED CELL DISTRIBUTION WIDTH 12.4 % (12.0-15.0); WHITE BLOOD COUNT 6.3 x10^3/uL (4.8-10.8)
[2018-06-09 05:40] LABS: ALBUMIN 3.4 g/dL (3.2-5.5); ALBUMIN/GLOBULIN RATIO 1.1 (1.0-2.2); ALKALINE PHOSPHATASE 63 IU/L (42-121); ALT ALANINE AMINOTRANSFERASE 21 IU/L (10-60); AST ASPARTATE AMINOTRANSFERASE 19 IU/L (10-42); BILIRUBIN,TOTAL 0.6 mg/dL (0.2-1.0); BUN - BLOOD UREA NITROGEN 19 mg/dL (6-20); CARBON DIOXIDE - CO2 27 mmol/L (21-32); CHLORIDE 104 mmol/L (101-111); CREATININE 0.7 mg/dL (0.6-1.2); GFR - MDRD 118 (>89); GLUCOSE 162 mg/dL (70-100); SODIUM 138 mmol/L (135-145); TOTAL PROTEIN 6.5 g/dL (6.7-8.2)
[2018-06-09] MEDS: INSULIN REGULAR HUMAN 100 UNIT/1 ML 10 ML MDV SUBQ SCH ×2 (05:48→11:56)
[2018-06-09] MEDS: POLYETHYLENE GLYCOL 3350 17 GM PACKET PO SCH (07:22)
[2018-06-09] MEDS: ENOXAPARIN 40 MG/0.4 ML SYRINGE SUBQ SCH (07:23)
[2018-06-09] MEDS: ATORVASTATIN 10 MG TABLET PO SCH (07:58)
[2018-06-09] MEDS: FAMOTIDINE 20 MG TABLET PO SCH (07:58)
[2018-06-09] MEDS: LOSARTAN 50 MG TABLET PO SCH (07:58)
[2018-06-09] MEDS: GABAPENTIN 400 MG CAPSULE PO SCH (07:58)
--- NOTE | 2018-06-09 08:29 | ANESTHESIA ---
Pre-Anesthesia VS, & Labs - Diagnosis infected diabetic foot ulcer on right foot, diabetic - Procedure 5th toe amputation, right foot Vital Signs: Temp Pulse Resp BP Pulse Ox 36.5 C 65 16 115/50 L 98 06/09/18 00:05 06/09/18 00:05 06/09/18 00:05 06/09/18 00:05 06/09/18 00:05 Height 6 ft 3 in Weight (kg) 90 kg Body Mass Index 24.7 - NPO >8 hours - Lab Results Fish Bones: 06/09/18 05:14 06/09/18 05:14 Home Medications and Allergies Home Medications: Ambulatory Orders Medication Instructions Recorded Confirmed Insulin Glargine,Hum.rec.anlog 30 units SQ QPM 03/07/15 06/05/18 [Lantus Solostar] Gabapentin 1,200 - 1,500 mg PO DAILY 10/05/16 06/05/18 Sildenafil Citrate [Sildenafil] 20 mg PO DAILY PRN 10/21/16 06/05/18 Atorvastatin Calcium 10 mg PO DAILY 07/31/17 06/05/18 Losartan Potassium 100 mg PO DAILY 07/31/17 06/05/18 Liraglutide [Victoza 2-Florian] 1.2 mg SUBQ DAILY 05/13/18 06/05/18 diazePAM [Valium] 5 mg PO Q6H PRN 05/13/18 06/05/18 traMADol [Ultram] 50 - 100 mg PO DAILY PRN 05/13/18 06/05/18 Allergies/Adverse Reactions: Allergies Allergy/AdvReac Type Severity Reaction Status Date / Time hydromorphone [From Dilaudid] Allergy Itching Verified 06/05/18 09:43 Anes History & Medical History - Anesthetic History Anesthesia Complications: reports: No previous complications - Medical History Cardiovascular: reports: Hypertension, High cholesterol Pulmonary: reports: None Gastrointestinal: reports: None Urinary: reports: None Neuro: reports: Peripheral neuropathy Musculoskeletal: reports: None Endocrine/Autoimmune: reports: Type 2 diabetes Blood Disorders: reports: None Skin: reports: Other (Multiple diabetic foot ulcers with amputations) Smoking Status: Current every day smoker - Surgical History General: Appendectomy Orthopedic: Amputation, Other Exam General: Alert Dental: Partials Upper Mouth Openin Fingerbreadth Mallampati classification: II Thyromental Distance: greater than 6 cm Respiratory: Lungs clear Cardiovascular: Regular rate Mental/Cognitive Status: Alert/Oriented X3 Cognitive Status: Within normal limits Plan Anesthesia Type: Spinal (would also like some sedation) Consent for Procedure(s) Verified and Reviewed: Yes Code Status: Attempt Resuscitation ASA classification: 3-Severe systemic disease Is this case an emergency?: No
[2018-06-09] MEDS ORDERED: BUPIVACAINE 0.25% PF 30 ML VIAL ONE (09:14)
[2018-06-09] MEDS ORDERED: LIDOCAINE 1% 50 ML MDV ONE (09:15)
[2018-06-09] MEDS ORDERED: LIDOCAINE 1% 50 ML MDV SUBQ ONE (09:37)
[2018-06-09] MEDS ORDERED: BUPIVACAINE 0.25%-EPI 1:200000 PF 30 ML VIAL ONE (09:39)
[2018-06-09] MEDS ORDERED: BUPIVACAINE 0.5%-EPI 1:200000 PF 30 ML VIAL ONE (09:40)
[2018-06-09] MEDS ORDERED: fentaNYL 100 MCG/2 ML VIAL IVP ONE (09:50)
[2018-06-09] MEDS ORDERED: MIDAZOLAM 2 MG/2 ML VIAL IVP ONE (09:50)
[2018-06-09] MEDS ORDERED: ePHEDrine 50 MG/ML VIAL IVP ONE (09:50)
[2018-06-09] MEDS ORDERED: KETOROLAC 30 MG/ML VIAL IVP ONE (09:50)
[2018-06-09] MEDS ORDERED: PROPOFOL 200 MG/20 ML VIAL IVP ONE (09:50)
[2018-06-09] MEDS ORDERED: LIDOCAINE-MPF 2% 5 ML VIAL IM ONE (09:50)
[2018-06-09] MEDS ORDERED: ONDANSETRON 4 MG/2 ML VIAL IVP ONE (09:50)
[2018-06-09] MEDS ORDERED: BUPIVACAINE 0.25% PF 30 ML VIAL SUBQ ONE (09:57)
--- NOTE | 2018-06-09 10:40 | OPERATIVE REPORT ---
Operative Report - General Admit Date: 06/05/18 Procedure Date: 06/09/18 Planned Procedure: right foot 5 toe amputation Pre-Op Diagnosis: right foot chronic ulceration/ plantar necrosis Procedure Performed: Right foot 5th metatarsal debridement/ toe amputation Post Op Diagnosis: same - Procedure Note Primary Surgeon: josé Anesthesia Technique: Combo spinal/epidural Estimated Blood Loss (mL): 5
[2018-06-09] MEDS ORDERED: LACTATED RINGERS 1,000 ML IV ONE (10:42)
[2018-06-09] MEDS: NICOTINE 21 MG PATCH TOP SCH (11:50)
[2018-06-09] MEDS ORDERED: INSULIN ASPART 300 UNIT/3 ML PEN SUBQ SCH ×2 (12:00→21:00)
[2018-06-09] MEDS: oxyCODONE 5 MG TABLET PO PRN ×3 (12:52→22:50)
--- NOTE | 2018-06-09 12:52 | OPERATIVE REPORT ---
DATE OF SERVICE: 06/09/2018 Physician: Eric Yost MD PREOPERATIVE DIAGNOSIS: Right foot diabetic ulceration. POSTOPERATIVE DIAGNOSIS: Right foot diabetic ulceration. PROCEDURE PERFORMED: Amputation of right fifth toe. SURGEON: Eric Yost MD ANESTHESIA: Local and spinal Tirso Villa MD INDICATIONS FOR SURGERY: The patient is a 52-year-old diabetic male who has had multiple hospital ad missions for recurrent cellulitis of his foot, and has been in chronic wound therapy, and has had pre vious multiple toe amputations because of diabetic ulceration. His most recent problem is a chronic ulceration beneath the fifth metatarsal head of his right foot with surrounding cellulitis and pain, not responding to wound care or hospitalization and IV antibiotic treatment. Recommendation by me wa s that he undergo a toe amputation with resection of part of the distal metatarsal for decompression and relief of plantar pressure. The patient aggressively wanted a toe amputation and lobbied for it. FINDINGS AT SURGERY: The patient's plantar toe ulcer had close down to about a 1 cm opening with diamante rounding cellulitis that was minimal and no purulent drainage. However, in surgery, the ulcer was fo und to be undermined in all directions, but most prominently undermined directly up to the plantar as pect of the small toe. It did not seem to penetrate directly into bone or into the fifth metatarsoph alangeal joint; however, the tissue on the plantar plate and the tissue of the flexor tendon were nec rotic from chronic exposure and infection. DESCRIPTION OF OPERATIVE PROCEDURE: The patient was taken to the operating room, and was given a spi nal anesthetic. He was in a comfortable position supine and well padded on his extremities. His rig ht foot was sterilely prepped and draped in standard fashion, and a surgical timeout was held, after which a tourniquet was inflated to 300 mmHg. The patient's ulceration was carefully debrided and probed to define the extent and the direction of undermining, and surprisingly this direction was distal towards the plantar fifth toe and a fairly ex tensive cavity without gross purulence. It was elected to therefore extend the incision along this c avity and then loop around the toe and back to the metatarsal, so that resection could be done initia lly through the metatarsophalangeal joint level and removal of the toe, and then resecting the metata rsal at an angle, preserving some of the length of the metatarsal, but not leaving any pressure point s or sharp edges, and adequately debriding back necrotic tendon on the dorsal and extensor surfaces. After this was accomplished, the area was flushed extensively, and the tourniquet was then deflated. The patient had adequate bleeding from both the thinner dorsal skin and the very callused thick plan tar skin. There was a surplus of tissue that was able to be debrided and then a dorsal advancement o f the thinner tissue towards the plantar aspect covering the defect. This was sutured with interrupt ed 3-0 Vicryl suture. Abundant sterile dressings were placed on the foot, and a compressive dressing with Miguel wraps and padding, and the patient was taken to recovery room in stable condition. ESTIMATED BLOOD LOSS: Less than 10 mL COMPLICATIONS: None. COUNTS: Sponge and needle counts correct. SPECIMEN: The specimen of the fifth toe was sent to pathology for evaluation. TD: 06/09/2018 12:14
--- NOTE | 2018-06-09 16:23 | PROVIDER PROGRESS NOTE ---
Assessment/Plan - Problem List (1) Cellulitis in diabetic foot Assessment/Plan: POD #0 of amputated R little toe. Continue pain meds, iv antibiotics and topical care. (2) Staphylococcus aureus bacteremia Assessment/Plan: Wound culture has turned pos and ID'd as Staph aureus. Will change iv Vanco dose (and need for Vanco blood levels) to iv Ciproflox, which will then eventually transition to po Cipro. Continue to monitor WBC, temp. (3) Diabetes mellitus type 2, insulin dependent Assessment/Plan: Continue carb-controlled diet w/ snacks and Pt wishes nutritional Insulin coverage, will add. Monitor fingerstick glu checks ac and hs (4) HTN (hypertension) Qualifiers: Hypertension type: essential hypertension Qualified Code(s): I10 - Essential (primary) hypertension Assessment/Plan: BP controlled on current meds. (5) Peripheral neuropathy Assessment/Plan: Continue meds as pre-hospital. (6) Hyperlipidemia Qualifiers: Hyperlipidemia type: unspecified Qualified Code(s): E78.5 - Hyperlipidemia , unspecified Assessment/Plan: Pt on his cholesterol pill (7) Nicotine abuse Assessment/Plan: Pt on Nicotine patch and has no complaints of urges - Current Meds Current Meds: Current Medications Generic Name Dose Route Start Last Admin Trade Name Freq PRN Reason Stop Dose Admin Atorvastatin Calcium 10 mg 06/06/18 09:00 06/09/18 07:58 Lipitor PO 10 mg DAILY LILLIAN Administration Diazepam 5 mg 06/05/18 12:51 06/06/18 00:02 Valium PO 5 mg Q6H PRN Administration Spasms Diphenhydramine HCl 25 mg 06/06/18 01:52 06/08/18 21:49 Benadryl Inj IVP 25 mg Q6H PRN Administration Allergy Symptoms Enoxaparin Sodium 40 mg 06/06/18 09:00 06/09/18 07:23 Lovenox SUBQ Not Given DAILY LILLIAN Famotidine 20 mg 06/06/18 09:00 06/09/18 07:58 Pepcid PO 20 mg DAILY [facility]IAN Administration Gabapentin 1,200 mg 06/06/18 09:00 06/09/18 07:58 Neurontin PO 1,200 mg DAILY LILLIAN Administration Vancomycin HCl 1 gm/ Sodium 250 mls @ 167 mls/hr 06/06/18 00:00 06/09/18 15: 56 Chloride IV 167 mls/hr Q8H [facility]ILLIAN Administration Insulin Aspart 1 - 5 unit 06/09/18 12:00 06/09/18 11:54 Novolog SUBQ 1 unit 0800,1200,1700,2100 [facility] Administration Protocol Insulin Glargine 30 unit 06/05/18 21:00 06/08/18 21:22 Lantus Solostar SUBQ 30 unit QPM LILLIAN Administration Insulin Human Regular 3 - 11 unit 06/09/18 06:00 06/09/18 11:56 Novolin R SUBQ Not Given Q6HR [facility] Protocol Losartan Potassium 100 mg 06/06/18 09:00 06/09/18 07:58 Cozaar PO 100 mg DAILY [facility]ILLIAN Administration Morphine Sulfate 4 mg 06/06/18 09:18 06/09/18 14:07 Morphine IVP 4 mg Q2H PRN Administration PAIN Nicotine 1 patch 06/05/18 15:00 06/09/18 11:50 Nicoderm TOP 1 patch DAILY [facility] Administration Oxycodone HCl 10 mg 06/05/18 12:54 06/09/18 12:52 Roxicodone PO 10 mg Q4HR PRN Administration Pain 8 to 10 Polyethylene Glycol 17 gm 06/06/18 09:00 06/09/18 07:22 Miralax PO Not Given DAILY [facility] Sodium Chloride 10 ml 06/05/18 12:54 06/09/18 00:49 Normal Saline Flush 0.9% IVP 20 ml PRN PRN Administration NEEDED PER PROVIDER ORDERS Sodium Chloride 10 ml 06/05/18 17:00 06/09/18 07:40 Normal Saline Flush 0.9% IVP 10 ml 0100,0900,1700 [facility] Administration Zolpidem Tartrate 5 mg 06/05/18 12:54 06/06/18 00:02 Ambien PO 5 mg QPM PRN Administration Insomnia - Lab Result Fish Bone Diagrams: 06/09/18 05:14 06/09/18 05:14 Subjective - Subjective Patient Reports: Feeling Better, Resting Comfortably Nursing Reports: Other (Had amputation of R little toe this am) Objective Vital Signs: Vital Signs - 24 hr 06/09/18 06/09/18 06/09/18 00:05 08:00 10:40 Temperature 36.5 C 36.5 C 36.7 C Heart Rate [ 65 62 Brachial] Respiratory 16 16 20 Rate Blood Pressure 93/62 Blood Pressure 115/50 L 123/73 [Right Brachial artery] O2 Saturation 98 97 98 06/09/18 06/09/18 06/09/18 10:45 10:50 10:54 Temperature Heart Rate [ Brachial] Respiratory 14 14 11 L Rate Blood Pressure 110/72 110/71 115/76 Blood Pressure [Right Brachial artery] O2 Saturation 98 98 98 06/09/18 06/09/18 06/09/18 11:00 11:05 11:20 Temperature 36.4 C L 36.4 C L 36.6 C Heart Rate [ 57 L Brachial] Respiratory 12 15 16 Rate Blood Pressure 119/72 116/73 Blood Pressure 118/68 [Right Brachial artery] O2 Saturation 99 98 99 06/09/18 06/09/18 06/09/18 11:45 12:19 12:42 Temperature 36.5 C 36.6 C 36.5 C Heart Rate [ 58 L 64 69 Brachial] Respiratory 18 17 17 Rate Blood Pressure Blood Pressure 115/71 128/82 H 132/78 H [Right Brachial artery] O2 Saturation 99 100 99 Oxygen O2 Source Room air I&O (Last 24 Hrs): Intake and Output Totals x24h 06/07/18 06/08/18 06/09/18 23:59 23:59 23:59 Intake Total 4558.667 3420 1200 Output Total 800 Balance 4558.667 3420 400 General: Alert, Oriented x3 HEENT: Mucous membr. moist/pink Neck: Supple, No JVD Neuro: Non Focal Cardiovascular: Regular rate, No murmurs Respiratory: No respiratory distress, Breath sounds nml Abdomen: Normal bowel sounds, Soft Extremities: Other (R toes bandaged) - Results Results: Laboratory Results WBC 6.3 x10^3/uL (4.8-10.8) 06/09/18 05:14 RBC 4.31 10^6/uL (4.70-6.10) L 06/09/18 05:14 Hgb 14.3 g/dL (14.0-18.0) 06/09/18 05:14 Hct 40.5 % (42.0-52.0) L 06/09/18 05:14 MCV 93.8 fL (80.0-94.0) 06/09/18 05:14 MCH 33.1 pg (27.0-31.0) H 06/09/18 05:14 MCHC 35.3 g/dL (32.0-36.0) 06/09/18 05:14 RDW 12.4 % (12.0-15.0) 06/09/18 05:14 Plt Count 220 10^3/uL (130-450) 06/09/18 05:14 MPV 7.8 fL (7.4-11.4) 06/09/18 05:14 Neut # (Auto) 8.7 10^3/uL (1.5-6.6) H 06/05/18 11:05 Lymph # (Auto) 1.7 10^3/uL (1.5-3.5) 06/05/18 11:05 [place] # (Auto) 1.3 10^3/uL (0.0-1.0) H 06/05/18 11:05 Eos # (Auto) 0.4 10^3/uL (0.0-0.7) 06/05/18 11:05 Baso # (Auto) 0.1 10^3/uL (0.0-0.1) 06/05/18 11:05 Absolute Nucleated RBC 0.01 x10^3/uL 06/05/18 11:05 Nucleated RBC % 0.1 /100WBC 06/05/18 11:05 ESR 16 mm/Hr (0-20) 06/09/18 05:14 Sodium 138 mmol/L (135-145) 06/09/18 05:14 Potassium 4.1 mmol/L (3.5-5.0) 06/09/18 05:14 Chloride 104 mmol/L (101-111) 06/09/18 05:14 Carbon Dioxide 27 mmol/L (21-32) 06/09/18 05:14 Anion Gap 7.0 (6-13) 06/09/18 05:14 BUN 19 mg/dL (6-20) 06/09/18 05:14 Creatinine 0.7 mg/dL (0.6-1.2) 06/09/18 05:14 Estimated GFR (MDRD) 118 (>89) 06/09/18 05:14 Glucose 162 mg/dL (70-100) H 06/09/18 05:14 POC Whole Bld Glucose 162 mg/dL (70 - 100) H 06/09/18 10:47 Glycated Hemoglobin 8.8 % (4.6-6.2) H 06/06/18 04:30 Estim Average Glucose 206 (70-100) H 06/06/18 04:30 Lactic Acid 1.1 mmol/L (0.5-2.2) 06/05/18 11:05 Calcium 9.0 mg/dL (8.5-10.3) 06/09/18 05:14 Ionized Calcium NO 06/09/18 05:14 Total Bilirubin 0.6 mg/dL (0.2-1.0) 06/09/18 05:14 AST 19 IU/L (10-42) 06/09/18 05:14 ALT 21 IU/L (10-60) 06/09/18 05:14 Alkaline Phosphatase 63 IU/L (42-121) 06/09/18 05:14 C-Reactive Protein 1.0 mg/dL (0-1.0) 06/09/18 05:14 Total Protein 6.5 g/dL (6.7-8.2) L 06/09/18 05:14 Albumin 3.4 g/dL (3.2-5.5) 06/09/18 05:14 Globulin 3.1 g/dL (2.1-4.2) 06/09/18 05:14 Albumin/Globulin Ratio 1.1 (1.0-2.2) 06/09/18 05:14 Lipase 23 U/L (22-51) 06/05/18 11:05 Urine Color YELLOW 06/05/18 11:05 Urine Clarity CLEAR (CLEAR) 06/05/18 11:05 Urine pH 6.0 PH (5.0-7.5) 06/05/18 11:05 Ur Specific [place] <=1.005 (1.002-1.030) 06/05/18 11:05 Urine Protein NEGATIVE mg/dL (NEGATIVE) 06/05/18 11:05 Urine Glucose (UA) NEGATIVE mg/dL (NEGATIVE) 06/05/18 11:05 Urine Ketones NEGATIVE mg/dL (NEGATIVE) 06/05/18 11:05 Urine Occult Blood NEGATIVE (NEGATIVE) 06/05/18 11:05 Urine Nitrite NEGATIVE (NEGATIVE) 06/05/18 11:05 Urine Bilirubin NEGATIVE (NEGATIVE) 06/05/18 11:05 Urine Urobilinogen 0.2 (NORMAL) E.U./dL (NORMAL) 06/05/18 11:05 Ur Leukocyte Esterase NEGATIVE (NEGATIVE) 06/05/18 11:05 Ur Microscopic Review NOT INDICATED 06/05/18 11:05 Urine Culture Comments NOT INDICATED 06/05/18 11:05 Last Dose Date UNK 06/07/18 07:30 Last Dose Time UNK 06/07/18 07:30 Vancomycin Trough 12.9 ug/mL (10.0-20.0) 06/07/18 07:30 - Procedures Procedures: Procedures DETACHMENT AT LEFT 2ND TOE, COMPLETE, OPEN APPROACH (03/11/16) DETACHMENT AT LEFT 5TH TOE, COMPLETE, OPEN APPROACH (04/30/17) DETACHMENT AT RIGHT 1ST TOE, HIGH, OPEN APPROACH (10/20/16) EXCIS DEBRIDE OF WOUND, INFECT, OR BURN (02/19/15) VENOUS CATHETERIZATION NEC (02/19/15) ABX Reporting Has patient been on IV antibiotics over the past 48 hours?: Yes
[2018-06-09] MEDS: CIPROFLOXACIN 400 MG/200 ML 200 ML IV SCH (17:52)
[2018-06-09] MEDS: SACCHAROMYCES BOULARDII 250 MG CAPSULE PO SCH (17:52)
[2018-06-09] MEDS: INSULIN ASPART 300 UNIT/3 ML PEN SUBQ SCH ×3 (18:41→22:00)
[2018-06-09 20:20] LABS: HB2 TOTAL 13.9 g/dL; HEMOGLOBIN A1C 1.01 g/dL; HEMOGLOBIN A1C % 8.8 % (4.6-6.2)
[2018-06-09] MEDS: INSULIN GLARGINE 300 UNIT/3 ML PEN SUBQ SCH (22:01)
[2018-06-10] MEDS: MORPHINE 2 MG/ML SYRINGE IVP PRN ×5 (00:30→20:53)
[2018-06-10] MEDS: SODIUM CHLORIDE FLUSH 0.9% 10 ML SYRINGE IVP SCH ×5 (00:30→23:41)
[2018-06-10] MEDS: oxyCODONE 5 MG TABLET PO PRN ×2 (04:13→10:39)
[2018-06-10] MEDS: CIPROFLOXACIN 400 MG/200 ML 200 ML IV SCH ×2 (05:19→17:02)
[2018-06-10] MEDS: SODIUM CHLORIDE FLUSH 0.9% 10 ML SYRINGE IVP PRN ×2 (05:20→15:52)
[2018-06-10 05:26] LABS: HGB - HEMOGLOBIN 14.2 g/dL (14.0-18.0); MEAN CORPUSCULAR HEMOGLOBIN 33.5 pg (27.0-31.0); MEAN CORPUSCULAR HGB CONC 35.3 g/dL (32.0-36.0); MEAN CORPUSCULAR VOLUME 95.1 fL (80.0-94.0); MEAN PLATELET VOLUME 8.4 fL (7.4-11.4); RED BLOOD COUNT 4.23 10^6/uL (4.70-6.10); RED CELL DISTRIBUTION WIDTH 12.2 % (12.0-15.0); WHITE BLOOD COUNT 8.2 x10^3/uL (4.8-10.8)
[2018-06-10 05:36] LABS: ALBUMIN 3.4 g/dL (3.2-5.5); ALBUMIN/GLOBULIN RATIO 1.1 (1.0-2.2); ALKALINE PHOSPHATASE 62 IU/L (42-121); ALT ALANINE AMINOTRANSFERASE 24 IU/L (10-60); AST ASPARTATE AMINOTRANSFERASE 17 IU/L (10-42); BILIRUBIN,TOTAL 0.4 mg/dL (0.2-1.0); BUN - BLOOD UREA NITROGEN 20 mg/dL (6-20); CARBON DIOXIDE - CO2 32 mmol/L (21-32); CHLORIDE 97 mmol/L (101-111); CREATININE 0.9 mg/dL (0.6-1.2); GFR - MDRD 88 (>89); GLUCOSE 158 mg/dL (70-100); SODIUM 136 mmol/L (135-145); TOTAL PROTEIN 6.5 g/dL (6.7-8.2)
[2018-06-10] MEDS: INSULIN ASPART 300 UNIT/3 ML PEN SUBQ SCH ×7 (07:57→20:43)
[2018-06-10] MEDS: SACCHAROMYCES BOULARDII 250 MG CAPSULE PO SCH ×2 (07:59→17:05)
[2018-06-10] MEDS ORDERED: INSULIN ASPART 300 UNIT/3 ML PEN SUBQ SCH (08:00)
[2018-06-10] MEDS: POLYETHYLENE GLYCOL 3350 17 GM PACKET PO SCH (08:01)
[2018-06-10] MEDS: NICOTINE 21 MG PATCH TOP SCH (08:01)
[2018-06-10] MEDS: GABAPENTIN 400 MG CAPSULE PO SCH (08:01)
[2018-06-10] MEDS: FAMOTIDINE 20 MG TABLET PO SCH (08:01)
[2018-06-10] MEDS: LOSARTAN 50 MG TABLET PO SCH (08:02)
[2018-06-10] MEDS: ENOXAPARIN 40 MG/0.4 ML SYRINGE SUBQ SCH (08:02)
[2018-06-10] MEDS: ATORVASTATIN 10 MG TABLET PO SCH (08:02)
--- NOTE | 2018-06-10 08:40 | PROVIDER PROGRESS NOTE ---
Subjective - General Admit Date: 06/05/18 Procedure Date: 06/09/18 Post Op Days: 1 Procedure Performed: amputation of right 5th toe - Review of Systems Wound/Incisions: positive: Healing well Musculoskeletal: positive: Joint pain, Joint swelling Psychiatric: positive: No symptoms Objective - Patient Data Reviewed Vital Signs: Yes Vital Signs: Vital Signs x48h Temp Pulse Resp BP Pulse Ox 06/10/18 08:00 37.1 C 78 18 148/89 H 97 06/10/18 00:46 36.9 C 76 18 113/84 H 96 Weight: Weight 06/08/18 06/09/18 06/10/18 23:59 23:59 23:59 Weight (kg) 90 kg Intake & Output: Intake and Output Totals x24h 06/08/18 06/09/18 06/10/18 23:59 23:59 23:59 Intake Total 3420 2780 920 Output Total 2850 300 Balance 3420 -70 620 - Lab Results Lab Results: 06/10/18 04:50 06/10/18 04:50 Other Lab Results: Lab Results x24hrs 06/10/18 06/10/18 06/10/18 Range/Units 07:23 04:50 04:50 WBC 8.2 (4.8-10.8) x10^3/uL RBC 4.23 L (4.70-6.10) 10^6/uL Hgb 14.2 (14.0-18.0) g/dL Hct 40.2 L (42.0-52.0) % MCV 95.1 H (80.0-94.0) fL MCH 33.5 H (27.0-31.0) pg MCHC 35.3 (32.0-36.0) g/dL RDW 12.2 (12.0-15.0) % Plt Count 234 (130-450) 10^3/uL MPV 8.4 (7.4-11.4) fL ESR (0-20) mm/Hr Sodium 136 (135-145) mmol/L Potassium 4.5 (3.5-5.0) mmol/L Chloride 97 L (101-111) mmol/L Carbon Dioxide 32 (21-32) mmol/L Anion Gap 7.0 (6-13) BUN 20 (6-20) mg/dL Creatinine 0.9 (0.6-1.2) mg/dL Estimated GFR (MDRD) 88 L (>89) Glucose 158 H (70-100) mg/dL POC Whole Bld Glucose 182 H (70 - 100) mg/dL Glycated Hemoglobin (4.6-6.2) % Estim Average Glucose (70-100) Calcium 9.0 (8.5-10.3) mg/dL Ionized Calcium NO Total Bilirubin 0.4 (0.2-1.0) mg/dL AST 17 (10-42) IU/L ALT 24 (10-60) IU/L Alkaline Phosphatase 62 (42-121) IU/L C-Reactive Protein (0-1.0) mg/dL Total Protein 6.5 L (6.7-8.2) g/dL Albumin 3.4 (3.2-5.5) g/dL Globulin 3.1 (2.1-4.2) g/dL Albumin/Globulin Ratio 1.1 (1.0-2.2) 06/10/18 06/10/18 06/09/18 Range/Units 04:50 04:50 21:05 WBC (4.8-10.8) x10^3/uL RBC (4.70-6.10) 10^6/uL Hgb (14.0-18.0) g/dL Hct (42.0-52.0) % MCV (80.0-94.0) fL MCH (27.0-31.0) pg MCHC (32.0-36.0) g/dL RDW (12.0-15.0) % Plt Count (130-450) 10^3/uL MPV (7.4-11.4) fL ESR 12 (0-20) mm/Hr Sodium (135-145) mmol/L Potassium (3.5-5.0) mmol/L Chloride (101-111) mmol/L Carbon Dioxide (21-32) mmol/L Anion Gap (6-13) BUN (6-20) mg/dL Creatinine (0.6-1.2) mg/dL Estimated GFR (MDRD) (>89) Glucose (70-100) mg/dL POC Whole Bld Glucose 150 H (70 - 100) mg/dL Glycated Hemoglobin (4.6-6.2) % Estim Average Glucose (70-100) Calcium (8.5-10.3) mg/dL Ionized Calcium Total Bilirubin (0.2-1.0) mg/dL AST (10-42) IU/L ALT (10-60) IU/L Alkaline Phosphatase (42-121) IU/L C-Reactive Protein 2.0 H (0-1.0) mg/dL Total Protein (6.7-8.2) g/dL Albumin (3.2-5.5) g/dL Globulin (2.1-4.2) g/dL Albumin/Globulin Ratio (1.0-2.2) 06/09/18 06/09/18 06/09/18 Range/Units 16:39 10:47 05:14 WBC (4.8-10.8) x10^3/uL RBC (4.70-6.10) 10^6/uL Hgb (14.0-18.0) g/dL Hct (42.0-52.0) % MCV (80.0-94.0) fL MCH (27.0-31.0) pg MCHC (32.0-36.0) g/dL RDW (12.0-15.0) % Plt Count (130-450) 10^3/uL MPV (7.4-11.4) fL ESR (0-20) mm/Hr Sodium (135-145) mmol/L Potassium (3.5-5.0) mmol/L Chloride (101-111) mmol/L Carbon Dioxide (21-32) mmol/L Anion Gap (6-13) BUN (6-20) mg/dL Creatinine (0.6-1.2) mg/dL Estimated GFR (MDRD) (>89) Glucose (70-100) mg/dL POC Whole Bld Glucose 282 H 162 H (70 - 100) mg/dL Glycated Hemoglobin 8.8 H (4.6-6.2) % Estim Average Glucose 206 H (70-100) Calcium (8.5-10.3) mg/dL Ionized Calcium Total Bilirubin (0.2-1.0) mg/dL AST (10-42) IU/L ALT (10-60) IU/L Alkaline Phosphatase (42-121) IU/L C-Reactive Protein (0-1.0) mg/dL Total Protein (6.7-8.2) g/dL Albumin (3.2-5.5) g/dL Globulin (2.1-4.2) g/dL Albumin/Globulin Ratio (1.0-2.2) - Imaging Results Radiology Imaging: positive: Other (Path report reviewed) - Current Medications Current Medications: Current Medications Generic Name Dose Route Start Last Admin Trade Name Freq PRN Reason Stop Dose Admin Atorvastatin Calcium 10 mg 06/06/18 09:00 06/10/18 08:02 Lipitor PO 10 mg DAILY LILLIAN Administration Diazepam 5 mg 06/05/18 12:51 06/06/18 00:02 Valium PO 5 mg Q6H PRN Administration Spasms Diphenhydramine HCl 25 mg 06/06/18 01:52 06/08/18 21:49 Benadryl Inj IVP 25 mg Q6H PRN Administration Allergy Symptoms Enoxaparin Sodium 40 mg 06/06/18 09:00 06/10/18 08:02 Lovenox SUBQ 40 mg DAILY LILLIAN Administration Famotidine 20 mg 06/06/18 09:00 06/10/18 08:01 Pepcid PO 20 mg DAILY [facility] Administration Gabapentin 1,200 mg 06/06/18 09:00 06/10/18 08:01 Neurontin PO 1,200 mg DAILY [facility] Administration Ciprofloxacin 200 mls @ 200 mls/hr 06/09/18 17:00 06/10/18 07:06 Cipro 400 Mg/200 Ml IV Infused Q12H LILLIAN Infusion Insulin Aspart 5 unit 06/09/18 18:29 06/10/18 07:57 Novolog SUBQ 5 unit TIDWM [facility]IAN Administration Insulin Aspart 1 - 9 unit 06/09/18 18:45 06/10/18 07:58 Novolog SUBQ 3 unit 0800,1200,1700,2100 [facility] Administration Protocol Insulin Glargine 30 unit 06/05/18 21:00 06/09/18 22:01 Lantus Solostar SUBQ 30 unit QPM [facility]ILLIAN Administration Losartan Potassium 100 mg 06/06/18 09:00 06/10/18 08:02 Cozaar PO 100 mg DAILY [facility] Administration Morphine Sulfate 4 mg 06/06/18 09:18 06/10/18 07:53 Morphine IVP 4 mg Q2H PRN Administration PAIN Nicotine 1 patch 06/05/18 15:00 06/10/18 08:01 Nicoderm TOP 1 patch DAILY [facility] Administration Oxycodone HCl 10 mg 06/05/18 12:54 06/10/18 04:13 Roxicodone PO 10 mg Q4HR PRN Administration Pain 8 to 10 Polyethylene Glycol 17 gm 06/06/18 09:00 06/10/18 08:01 Miralax PO 17 gm DAILY [facility]ILLIAN Administration Saccharomyces Boulardii 250 mg 06/09/18 17:00 06/10/18 07:59 Florastor PO 250 mg BIDWM LILLIAN Administration Sodium Chloride 10 ml 06/05/18 12:54 06/10/18 05:20 Normal Saline Flush 0.9% IVP 10 ml PRN PRN Administration NEEDED PER PROVIDER ORDERS Sodium Chloride 10 ml 06/05/18 17:00 06/10/18 08:02 Normal Saline Flush 0.9% IVP 10 ml 0100,0900,1700 LILLIAN Administration Tramadol HCl 50 mg 06/05/18 12:51 06/10/18 08:02 Ultram PO 50 mg DAILY PRN Administration PAIN Zolpidem Tartrate 5 mg 06/05/18 12:54 06/06/18 00:02 Ambien PO 5 mg QPM PRN Administration Insomnia - Physical Exam Wound/Incisions: positive: Healing well General Appearance: positive: No acute distress Skin: positive: No rash, Warm, Dry Extremities: positive: Other (surgical site is dry with some crusted blood on margins. Swelling is slight. No cellulitis. Tender to palpation) Neurologic/Psychiatric: positive: Oriented x3 ABX Reporting Has patient been on IV antibiotics over the past 48 hours?: Yes Impression/Plan - Problem List Problem List: POD #1 The patient is doing well and the incision shows no drainage or s/s of infection Silver dressing and wrap applied. Pt is to be placed on oral meds, d/c to home, return to Ortho next week. Sutures to be left in place for 3 wks. Dressing will remain in place till ortho visit. Pt is advised of s/s that would trigger an earlier return to clinic or phone call.
--- NOTE | 2018-06-10 15:57 | PROVIDER PROGRESS NOTE ---
Assessment/Plan - Problem List (1) Cellulitis in diabetic foot Assessment/Plan: POD #1 of R little toe amputation. He has worse pain today. Morphine with Tramadol cause him to sleep, but when he awakens he is in severe pain. The ID recommendations are 1 week of antibiotics after the surgery. Dr Yost wants no dressing changes until seen in 1 week in [facility] by Dr Joaquin. An evaluation for leg ischemia is needed as well. Will order a Duplex arterial Doppler of R leg and start Pletal and or antiplatelet and statin meds if needed. (2) Staphylococcus aureus bacteremia Assessment/Plan: Positive cultures will guide antibiotic chosen. Continue iv antibiotic and change to same antibiotic po before DCh and continue at home for a 1 week course. (3) Diabetes mellitus type 2, insulin dependent Assessment/Plan: Continue diet and glucose monitoring and Insulin. (4) HTN (hypertension) Qualifiers: Hypertension type: unspecified secondary hypertension Qualified Code(s): I15.9 - Secondary hypertension, unspecified; I15 - Secondary hypertension Assessment/Plan: Continue meds for control (5) Peripheral neuropathy Assessment/Plan: Continue meds (6) Hyperlipidemia Qualifiers: Hyperlipidemia type: unspecified Qualified Code(s): E78.5 - Hyperlipidemia , unspecified Assessment/Plan: Continue meds (7) Nicotine abuse Assessment/Plan: Continue Nicotine patch to suppress urges. - Current Meds Current Meds: Current Medications Generic Name Dose Route Start Last Admin Trade Name Freq PRN Reason Stop Dose Admin Atorvastatin Calcium 10 mg 06/06/18 09:00 06/10/18 08:02 Lipitor PO 10 mg DAILY LILLIAN Administration Diazepam 5 mg 06/05/18 12:51 06/06/18 00:02 Valium PO 5 mg Q6H PRN Administration Spasms Diphenhydramine HCl 25 mg 06/06/18 01:52 06/08/18 21:49 Benadryl Inj IVP 25 mg Q6H PRN Administration Allergy Symptoms Enoxaparin Sodium 40 mg 06/06/18 09:00 06/10/18 08:02 Lovenox SUBQ 40 mg DAILY LILLIAN Administration Famotidine 20 mg 06/06/18 09:00 06/10/18 08:01 Pepcid PO 20 mg DAILY [facility]ILLIAN Administration Gabapentin 1,200 mg 06/06/18 09:00 06/10/18 08:01 Neurontin PO 1,200 mg DAILY [facility] Administration Ciprofloxacin 200 mls @ 200 mls/hr 06/09/18 17:00 06/10/18 07:06 Cipro 400 Mg/200 Ml IV Infused Q12H [facility]ILLIAN Infusion Insulin Aspart 5 unit 06/09/18 18:29 06/10/18 12:19 Novolog SUBQ 5 unit TIDWM LILLIAN Administration Insulin Aspart 1 - 9 unit 06/09/18 18:45 06/10/18 12:20 Novolog SUBQ Not Given 0800,1200,1700,2100 [facility] Protocol Insulin Glargine 30 unit 06/05/18 21:00 06/09/18 22:01 Lantus Solostar SUBQ 30 unit QPM [facility]ILLIAN Administration Losartan Potassium 100 mg 06/06/18 09:00 06/10/18 08:02 Cozaar PO 100 mg DAILY [facility] Administration Morphine Sulfate 4 mg 06/06/18 09:18 06/10/18 15:52 Morphine IVP 4 mg Q2H PRN Administration PAIN Nicotine 1 patch 06/05/18 15:00 06/10/18 08:01 Nicoderm TOP 1 patch DAILY [facility] Administration Oxycodone HCl 10 mg 06/05/18 12:54 06/10/18 10:39 Roxicodone PO 10 mg Q4HR PRN Administration Pain 8 to 10 Polyethylene Glycol 17 gm 06/06/18 09:00 06/10/18 08:01 Miralax PO 17 gm DAILY [facility] Administration Saccharomyces Boulardii 250 mg 06/09/18 17:00 06/10/18 07:59 Florastor PO 250 mg BIDWM [facility] Administration Sodium Chloride 10 ml 06/05/18 12:54 06/10/18 15:52 Normal Saline Flush 0.9% IVP 10 ml PRN PRN Administration NEEDED PER PROVIDER ORDERS Sodium Chloride 10 ml 06/05/18 17:00 06/10/18 15:52 Normal Saline Flush 0.9% IVP 10 ml 0100,0900,1700 [facility] Administration Zolpidem Tartrate 5 mg 06/05/18 12:54 06/06/18 00:02 Ambien PO 5 mg QPM PRN Administration Insomnia - Lab Result Fish Bone Diagrams: 06/10/18 04:50 06/10/18 04:50 - Additional Planning My Orders: My Active Orders 06/09/18 17:00 Ciprofloxacin 400 mg/200 ml [Cipro 400 mg/200 ml] 200 ml IV Q12H Saccharomyces Boulardii [Florastor] 250 mg PO BIDWM 06/09/18 18:29 Insulin Aspart [NovoLOG] 5 unit SUBQ TIDWM 06/09/18 18:45 Insulin Aspart [NovoLOG] 1 - 9 unit SUBQ 0800,1200,1700,2100 06/10/18 Home Health Referral [CONS] Routine 06/10/18 10:39 Duplex Lwr Ext Arterial RT [US] Routine 06/10/18 15:30 HYDROcodone/ACET 10/325 [[place] 10 mg/325 mg] 1 tab PO Q6HR PRN Subjective - Subjective Patient Reports: Feeling Better Objective Vital Signs: Vital Signs - 24 hr 06/09/18 06/10/18 06/10/18 16:00 00:46 08:00 Temperature 36.6 C 36.9 C 37.1 C Heart Rate [ 68 76 78 Brachial] Respiratory 17 18 18 Rate Blood Pressure 155/89 H 113/84 H 148/89 H [Right Brachial artery] O2 Saturation 98 96 97 Oxygen O2 Source Room air I&O (Last 24 Hrs): Intake and Output Totals x24h 06/08/18 06/09/18 06/10/18 23:59 23:59 23:59 Intake Total 3420 2780 2330 Output Total 2850 300 Balance 3420 -70 2030 General: Alert, Oriented x3 HEENT: Mucous membr. moist/pink Neck: No JVD Neuro: Non Focal Cardiovascular: Regular rate, No murmurs Respiratory: No respiratory distress, Breath sounds nml Abdomen: Normal bowel sounds, Soft Extremities: Other (R foot and toes bandaged, L toes have 2 amputated) - Results Results: Laboratory Results WBC 8.2 x10^3/uL (4.8-10.8) 06/10/18 04:50 RBC 4.23 10^6/uL (4.70-6.10) L 06/10/18 04:50 Hgb 14.2 g/dL (14.0-18.0) 06/10/18 04:50 Hct 40.2 % (42.0-52.0) L 06/10/18 04:50 MCV 95.1 fL (80.0-94.0) H 06/10/18 04:50 MCH 33.5 pg (27.0-31.0) H 06/10/18 04:50 MCHC 35.3 g/dL (32.0-36.0) 06/10/18 04:50 RDW 12.2 % (12.0-15.0) 06/10/18 04:50 Plt Count 234 10^3/uL (130-450) 06/10/18 04:50 MPV 8.4 fL (7.4-11.4) 06/10/18 04:50 Neut # (Auto) 8.7 10^3/uL (1.5-6.6) H 06/05/18 11:05 Lymph # (Auto) 1.7 10^3/uL (1.5-3.5) 06/05/18 11:05 [place] # (Auto) 1.3 10^3/uL (0.0-1.0) H 06/05/18 11:05 Eos # (Auto) 0.4 10^3/uL (0.0-0.7) 06/05/18 11:05 Baso # (Auto) 0.1 10^3/uL (0.0-0.1) 06/05/18 11:05 Absolute Nucleated RBC 0.01 x10^3/uL 06/05/18 11:05 Nucleated RBC % 0.1 /100WBC 06/05/18 11:05 ESR 12 mm/Hr (0-20) 06/10/18 04:50 Sodium 136 mmol/L (135-145) 06/10/18 04:50 Potassium 4.5 mmol/L (3.5-5.0) 06/10/18 04:50 Chloride 97 mmol/L (101-111) L 06/10/18 04:50 Carbon Dioxide 32 mmol/L (21-32) 06/10/18 04:50 Anion Gap 7.0 (6-13) 06/10/18 04:50 BUN 20 mg/dL (6-20) 06/10/18 04:50 Creatinine 0.9 mg/dL (0.6-1.2) 06/10/18 04:50 Estimated GFR (MDRD) 88 (>89) L 06/10/18 04:50 Glucose 158 mg/dL (70-100) H 06/10/18 04:50 POC Whole Bld Glucose 108 mg/dL (70 - 100) H 06/10/18 11:15 Glycated Hemoglobin 8.8 % (4.6-6.2) H 06/09/18 05:14 Estim Average Glucose 206 (70-100) H 06/09/18 05:14 Lactic Acid 1.1 mmol/L (0.5-2.2) 06/05/18 11:05 Calcium 9.0 mg/dL (8.5-10.3) 06/10/18 04:50 Ionized Calcium NO 06/10/18 04:50 Total Bilirubin 0.4 mg/dL (0.2-1.0) 06/10/18 04:50 AST 17 IU/L (10-42) 06/10/18 04:50 ALT 24 IU/L (10-60) 06/10/18 04:50 Alkaline Phosphatase 62 IU/L (42-121) 06/10/18 04:50 C-Reactive Protein 2.0 mg/dL (0-1.0) H 06/10/18 04:50 Total Protein 6.5 g/dL (6.7-8.2) L 06/10/18 04:50 Albumin 3.4 g/dL (3.2-5.5) 06/10/18 04:50 Globulin 3.1 g/dL (2.1-4.2) 06/10/18 04:50 Albumin/Globulin Ratio 1.1 (1.0-2.2) 06/10/18 04:50 Lipase 23 U/L (22-51) 06/05/18 11:05 Urine Color YELLOW 06/05/18 11:05 Urine Clarity CLEAR (CLEAR) 06/05/18 11:05 Urine pH 6.0 PH (5.0-7.5) 06/05/18 11:05 Ur Specific [place] <=1.005 (1.002-1.030) 06/05/18 11:05 Urine Protein NEGATIVE mg/dL (NEGATIVE) 06/05/18 11:05 Urine Glucose (UA) NEGATIVE mg/dL (NEGATIVE) 06/05/18 11:05 Urine Ketones NEGATIVE mg/dL (NEGATIVE) 06/05/18 11:05 Urine Occult Blood NEGATIVE (NEGATIVE) 06/05/18 11:05 Urine Nitrite NEGATIVE (NEGATIVE) 06/05/18 11:05 Urine Bilirubin NEGATIVE (NEGATIVE) 06/05/18 11:05 Urine Urobilinogen 0.2 (NORMAL) E.U./dL (NORMAL) 06/05/18 11:05 Ur Leukocyte Esterase NEGATIVE (NEGATIVE) 06/05/18 11:05 Ur Microscopic Review NOT INDICATED 06/05/18 11:05 Urine Culture Comments NOT INDICATED 06/05/18 11:05 Last Dose Date UNK 06/07/18 07:30 Last Dose Time UNK 06/07/18 07:30 Vancomycin Trough 12.9 ug/mL (10.0-20.0) 06/07/18 07:30 - Procedures Procedures: Procedures DETACHMENT AT LEFT 2ND TOE, COMPLETE, OPEN APPROACH (03/11/16) DETACHMENT AT LEFT 5TH TOE, COMPLETE, OPEN APPROACH (04/30/17) DETACHMENT AT RIGHT 1ST TOE, HIGH, OPEN APPROACH (10/20/16) EXCIS DEBRIDE OF WOUND, INFECT, OR BURN (02/19/15) VENOUS CATHETERIZATION NEC (02/19/15)
[2018-06-10] MEDS: HYDROcod/ACETAM 10 MG/325 MG TABLET PO PRN (18:07)
--- NOTE | 2018-06-10 20:29 | Ultrasound Report ---
Reason: eval for PVD, has recurrent diabetic toe ulcers Procedure Date: 06/10/2018 Accession Number: [id number] / [id number] Procedure: US - Duplex Lwr Ext Arterial RT CPT Code: FULL RESULT: EXAM: RIGHT LOWER EXTREMITY ARTERIAL DOPPLER ULTRASOUND EXAM DATE: 06/10/2018 07:32 PM. CLINICAL HISTORY: Evaluate for peripheral vascular disease, has recurrent diabetic toe ulcers. COMPARISON: Duplex right lower extremity arterial 10/22/2016 7:20 AM. TECHNIQUE: Real-time sonographic vascular imaging was performed by the automatic lump making machine tender, utilizing color-flow, Doppler flow, and spectral analysis. Multiple sales representative publications static images were saved for review. FINDINGS: There are mild atherosclerotic changes scattered throughout the right lower extremity. Predominantly monophasic waveforms are seen throughout the sampled arteries from the common femoral through dorsal pedal arteries. No evidence of occlusion or high-grade stenosis, however, present. 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 PSFA: PSV 154.2 cm/sec, monophasic waveform. MSFA: PSV 100.0 cm/sec, monophasic waveform. DSFA: PSV 76.0 cm/sec, monophasic waveform. PFA: PSV 52.0 cm/sec, monophasic. POP: PSV 83 cm/sec, triphasic waveform. [place]: PSV 73.7 cm/sec, monophasic waveform. SHIRT TURNER: PSV 73.7 cm/sec, monophasic waveform. JAVIER: Not visualized. DPA: Not visualized. IMPRESSION: 1. Evidence of peripheral vascular disease without evidence of occlusion or high-grade stenosis. RADIA
[2018-06-10] MEDS: INSULIN GLARGINE 300 UNIT/3 ML PEN SUBQ SCH (20:54)
[2018-06-10] MEDS: diazePAM 5 MG TABLET PO PRN (22:27)
[2018-06-11] MEDS: MORPHINE 2 MG/ML SYRINGE IVP PRN ×2 (00:58→11:10)
[2018-06-11] MEDS: SODIUM CHLORIDE FLUSH 0.9% 10 ML SYRINGE IVP PRN ×3 (00:58→06:13)
[2018-06-11] MEDS: CIPROFLOXACIN 400 MG/200 ML 200 ML IV SCH (04:53)
[2018-06-11] MEDS: oxyCODONE 5 MG TABLET PO PRN ×3 (04:56→16:16)
[2018-06-11] MEDS: SACCHAROMYCES BOULARDII 250 MG CAPSULE PO SCH ×2 (08:12→17:00)
[2018-06-11] MEDS: ENOXAPARIN 40 MG/0.4 ML SYRINGE SUBQ SCH (08:13)
[2018-06-11] MEDS: LOSARTAN 50 MG TABLET PO SCH (08:13)
[2018-06-11] MEDS: GABAPENTIN 400 MG CAPSULE PO SCH (08:13)
[2018-06-11] MEDS: FAMOTIDINE 20 MG TABLET PO SCH (08:13)
[2018-06-11] MEDS: ATORVASTATIN 10 MG TABLET PO SCH (08:13)
[2018-06-11] MEDS: POLYETHYLENE GLYCOL 3350 17 GM PACKET PO SCH (08:14)
[2018-06-11] MEDS: NICOTINE 21 MG PATCH TOP SCH (08:14)
[2018-06-11] MEDS: SODIUM CHLORIDE FLUSH 0.9% 10 ML SYRINGE IVP SCH ×2 (08:17→17:01)
[2018-06-11] MEDS: INSULIN ASPART 300 UNIT/3 ML PEN SUBQ SCH ×6 (08:21→16:55)
[2018-06-11] MEDS ORDERED: CLINDAMYCIN 150 MG CAPSULE PO SCH (09:00)
[2018-06-11] MEDS ORDERED: CIPROFLOXACIN 250 MG TABLET PO SCH (12:00)
--- NOTE | 2018-06-11 12:02 | Discharge Plan ---
Discharge Plan Disposition: 01 Home, Self Care Condition: Stable Prescriptions: HYDROcodone/ACET 10/325 [[place] 10 mg/325 mg] 1 tab PO Q6HR PRN #28 tablet PRN Reason: Severe Pain Ciprofloxacin [Cipro] 750 mg PO BID #12 tablet Saccharomyces Boulardii [Florastor] 250 mg PO BID #20 capsule Diet: Diabetic Activity Restrictions: Wt Bearing as Tolerated Shower Restrictions: No Driving Restrictions: Yes Assistance Devices: Other (Scooter) Weight Bearing: Advance to full weight per Orthopedics Additional Instructions or Follow Up instructions: Resume your pre-hospital medications. Continue with your diabetic diet. Take the Cipro antibiotic til all the pills are done. Along with those, Florastor (for good bowel jacinto) has been ordered, to continue taking for several days after the antibiotics are done. See Dr Valerie Joaquin in Orthopedic clinic in 5-7 days in follow-up. Call for an appointment. If you have new or worsening symptoms, come to the ER. Follow-Up Care: Home Health - RN, Home Health - PT, Home Health - OT No Smoking: If you smoke, Please STOP! Call for help. Follow-up with: Tirso Tejada MD [Primary Care Provider] -
[2018-06-11] MEDS: HYDROcod/ACETAM 10 MG/325 MG TABLET PO PRN ×2 (13:08→18:00)
[2018-06-11 16:22] VITALS: BP 134/73
--- NOTE | 2018-06-12 11:43 | PROVIDER PROGRESS NOTE ---
Subjective - Prog Note Date Prog Note Date: 06/11/18 - Subjective Pt reports feeling: Improved (Elijah is a 52-year-old gentleman patient of Dr. Yost who recently had a right foot fifth toe and partial foot amputation. He says he is still having pain but managed with the pain medication. He is planning to go home today. He offers no additional significant complaints at this time. Patient's physical examination: Right foot with Miguel wrap and dressing covering portions of the distal foot and midfoot. This is left intact per Dr. Yost's instructions. There is no significant surrounding erythema or streaking. There is good coloration of remaining toes is good warmth and capillary refill less than 2 seconds. Assessment and plan recommend continued care per Dr. Yost for patient's right foot. He will leave the dressing clean dry and intact. He will continue plan for oral antibiotics. He will follow-up in the orthopedic clinic in approximately 1 week or sooner if problems questions or worsening of his condition arises. Elijah's questions were answered he verbalized agreement and satisfaction with the plan. He will notify our office in the meantime if the need arises.) Objective - Vital Signs/Intake & Output Intake & Output: Intake & Output 06/09/18 06/10/18 06/11/18 06/12/18 23:59 23:59 23:59 23:59 Intake Total 2780 3030 1740 Output Total 2850 300 Balance -70 2730 1740 - Lab Results Fish Bones: 06/10/18 04:50 06/10/18 04:50 Other Labs: Lab Results x24hrs 06/11/18 Range/Units 16:17 POC Whole Bld Glucose 219 H (70 - 100) mg/dL
--- NOTE | 2018-06-14 00:37 | DISCHARGE SUMMARY ---
Physician: Laisha Lara MD DATE OF ADMISSION: 06/05/2018 DATE OF DISCHARGE: 06/11/2018 HISTORY OF PRESENT ILLNESS: This is a 52-year-old white male who is a diabetic , type 1, insulin-dependent, has a history of hypertension, peripheral neuropathy, hyperlipidemia, and cigarette smoking. He has had several admissions for cellulitis or deeper infections of the toes of his feet. He has had 3 prior amputations, including 2 toes on the left foot and the big toe on the right foot. Over the past several months, he has had 2 visits requiring antibiotics and was sent home with oral clindamycin. 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 He tried to rest and elevate the foot, but it continued to have redness, pain, and swelling, and he presented to the emergency room. He was admitted for recurrent cellulitis in his foot in a diabetic. HOSPITAL COURSE AND DISCHARGE DIAGNOSES 1. Cellulitis in diabetic foot. The patient had wound cultures and blood cultures done. The wound cultures grew Staphylococcus aureus. He was on IV Ciprofloxacin throughout his hospital stay, changed to oral Cipro at discharge. Blood cultures were negative. The patient was seen by an Orthopedic surgeon. Evaluation was done that showed no evidence of osteomyelitis. However, because of recurrent and deep cellulitis, he was offered amputation of the toes and metatarsal, and he underwent amputation on 06/09/2018. He required narcotics for pain control after the surgery. He was seen by physical therapy and could only jump on the left foot to ambulate using a quad walker for support. The staff was able to arrange for him to get a scooter from the [place] from a friend to use at home. The patient feels that he can no longer work in a standing job because of these multiple amputations, recurrent infections and pain. He was discharged under the care of Home Health to provide a Staff Nurse, Aide, PT and OT. 2. Staphylococcus aureus wound culture. The patient was on IV antibiotics, which helped with improving his white blood count, which was elevated at the time of admission at 12.1. He had no fevers throughout this course. He was sent home with p.o. ciprofloxacin for a 1-week additional course at the time of discharge. 3. Diabetes, type 2, insulin-dependent. The patient was on a carbohydrate- controlled diet, sliding scale insulin coverages for fasting glucose checks that were done a.c. and at bedtime. The patient's A1c here was 8.8, and his glucose checks were in the 108-219 range while here. 4. Hypertension. The patient was continued on Losartan for blood control while here. 5. Peripheral neuropathy. The patient was on his Gabapentin doses while here along with pain medications. 6. Hyperlipidemia. The patient's Atorvastatin was continued throughout this course. 7. Nicotine abuse. The patient was on a Nicotine patch while here to suppress urges. LABORATORY STUDIES AND IMAGING: An MRI of the right foot showed no osteomyelitis, moderate osteoarthritis of the first joint and tendinitis of the flexor tendons. He had arterial duplex Doppler done of the right leg to evaluate for ischemia, and this showed evidence of peripheral vascular disease but without occlusion or high-grade stenosis. CONDITION AT THE TIME OF DISCHARGE: Fair. PHYSICAL EXAMINATION VITAL SIGNS: Blood pressure 134/73, pulse of 73, sinus rhythm, afebrile, room air saturation 95%. HEENT: Unremarkable. NECK: Without JVD or carotid bruits. CHEST: Clear. HEART: Sounds normal. No murmur. ABDOMEN: Soft. Normal bowel sounds. EXTREMITIES: The right toes are bandaged, and 2 are amputated. The left foot has old amputation of 2 toes. NEUROLOGIC: Intact. ALLERGIES: HYDROMORPHONE, WHICH CAUSED ITCHING AND A RED RASH ON ONE OF THE RECENT LAST ADMISSIONS. MEDICATIONS FOR DISCHARGE 1. [place] 10/325 mg q.6 hours p.r.n.; 28 tablets total were prescribed. 2. Lipitor 10 mg daily. 3. Ciprofloxacin 750 mg b.i.d. for 1 week. 4. Valium 5 mg q.6 h. p.r.n. 5. Gabapentin 1200 mg b.i.d. 6. Glargine insulin 30 units q.p.m. 7. Victoza 1.2 mg subcutaneously daily. 8. Losartan 100 mg daily. 9. Florastor 250 mg b.i.d. for 2 more weeks. 10. Tramadol 50-100 mg p.o. p.r.n. on a previous schedule. 11. Sildenafil 20 mg p.o. daily. CODE STATUS: FULL CODE. FOLLOWUP: With Dr. Joaquin in the orthopedic clinic in 1 week. Follow-up with PCP in 1-2 weeks. TIME REQUIRED TO COMPLETE THIS ENTIRE DISCHARGE, CHART REVIEW, DICTATION, MEDICATION PRESCRIPTIONS, AND PATIENT EDUCATION: 60 minutes. cc: Tirso Tejada MD TD: 06/13/2018 23:06 MTDD
== END 2018-06-11 18:05 | disposition home health service (06) | DRG 256 ==
LOC: ED 09:34 → MS2 12:54
PROVIDERS: ADMIT Internal Medicine; ATTEND Internal Medicine
PROC: 0QBN0ZZ Excision of Right Metatarsal, Open Approach (ICD-10-PCS; 2018-06-09)
PROC: 0Y6X0Z0 Detachment at Right 5th Toe, Complete, Open Approach (ICD-10-PCS; principal; 2018-06-09 09:00)
DX: E11.52 Type 2 diabetes mellitus with diabetic peripheral angiopathy with gangrene (principal); L03.115 Cellulitis of right lower limb; I96 Gangrene, not elsewhere classified; E11.621 Type 2 diabetes mellitus with foot ulcer; L97.512 Non-pressure chronic ulcer of other part of right foot with fat layer exposed; B95.61 Methicillin susceptible Staphylococcus aureus infection as the cause of diseases classified elsewhere; E11.42 Type 2 diabetes mellitus with diabetic polyneuropathy; I10 Essential (primary) hypertension; E78.5 Hyperlipidemia, unspecified; F17.210 Nicotine dependence, cigarettes, uncomplicated; Z79.4 Long term (current) use of insulin; Z79.899 Other long term (current) drug therapy; Z89.411 Acquired absence of right great toe; Z48.00 Encounter for change or removal of nonsurgical wound dressing; Z89.422 Acquired absence of other left toe(s); Z88.6 Allergy status to analgesic agent; Z91.19 Patient's noncompliance with other medical treatment and regimen
CPT/HCPCS: 36415; 80053; 80202; 81001; 81003; 83036; 83605; 83690; 85025; 85027; 85651; 86140; 87040; 87070; 87086; 87181; 87205; 88305; 88311; 96374; 97597; 99283; 99284; 99285

== ENCOUNTER 2018-09-24 15:31 | Emergency (ER) | payer MEDICAID ==
[2018-09-24] MEDS ORDERED: ceFAZolin 2 GM in SODIUM CHLORIDE 0.9% MINIBAG 100 ML IV STA (15:44)
[2018-09-24] MEDS ORDERED: BUFFERED LIDOCAINE 10 ML SYRINGE SUBQ STA (15:45)
--- NOTE | 2018-09-24 15:46 | ED Physician Documentation ---
PD HPI LOWER EXT INJURY - Stated complaint Stated Complaint: L FOOT WOUND - Chief complaint Chief Complaint: Ext Problem - History obtained from History obtained from: Patient - History of Present Illness PD HPI LOW EXT INJURY LOCATION: Left (53-year-old gentleman with multiple recurrent diabetic foot infections status post multiple amputations of toes presents with a couple of days worth of a mildly painful sore that is on the bottom of the left foot without fevers or chills.) Review of Systems Ten Systems: 10 systems reviewed and negative Constitutional: denies: Fever, Chills GI: denies: Abdominal Pain, Nausea Neurologic: reports: Headache. denies: Head injury, LOC PD PAST MEDICAL HISTORY - Past Medical History Cardiovascular: Hypertension, High cholesterol Respiratory: None Neuro: Peripheral neuropathy Endocrine/Autoimmune: Type 2 diabetes GI: None : None HEENT: None Psych: None Musculoskeletal: None Derm: Other (Multiple diabetic foot ulcers with amputations) - Past Surgical History Past Surgical History: Yes General: Appendectomy Ortho: Amputation, Other - Present Medications Home Medications: Ambulatory Orders Medication Instructions Recorded Confirmed Insulin Glargine,Hum.rec.anlog 30 units SQ QPM 03/07/15 06/05/18 [Lantus Solostar] Gabapentin 1,200 - 1,500 mg PO DAILY 10/05/16 06/05/18 Atorvastatin Calcium 10 mg PO DAILY 07/31/17 06/05/18 Liraglutide [Victoza 2-Florian] 1.2 mg SUBQ DAILY 05/13/18 06/05/18 - Allergies Allergies/Adverse Reactions: Allergies Allergy/AdvReac Type Severity Reaction Status Date / Time hydromorphone [From Dilaudid] Allergy Itching Verified 09/24/18 15:43 - Social History Does the pt smoke?: Yes Smoking Status: Current every day smoker Does the pt drink ETOH?: Yes Does the pt have substance abuse?: No - Immunizations Immunizations are current?: Yes - POLST Patient has POLST: No POLST Status: Full Code PD ED PE NORMAL - Vitals Vital signs reviewed: Yes - General General: Alert and oriented X 3, No acute distress - HEENT HEENT: PERRL, EOMI - Neck Neck: Supple, no meningeal sign, No bony TTP - Cardiac Cardiac: RRR, No murmur - Respiratory Respiratory: No respiratory distress, Clear bilaterally - Abdomen Abdomen: Normal bowel sounds, Soft, Non tender - Back Back: No CVA TTP, No spinal TTP - Derm Derm: Normal color, Warm and dry - Extremities Extremities: Other (On the plantar surface of the left foot, basically under the third metatarsal there is a well-circumscribed lesion under some built-up skin/callus which is mildly tender.) - Neuro Neuro: Alert and oriented X 3, Normal speech - Psych Psych: Normal mood, Normal affect Results - Vitals Vitals: Vital Signs - 24 hr 09/24/18 15:37 Temperature 36.6 C Heart Rate 108 H Respiratory 18 Rate Blood Pressure 204/113 H O2 Saturation 98 Oxygen O2 Source Room air - Labs Labs: Laboratory Tests 09/24/18 09/24/18 09/24/18 15:57 15:57 15:57 WBC 7.7 RBC 5.00 Hgb 16.2 Hct 47.9 MCV 95.7 H MCH 32.4 H MCHC 33.8 RDW 13.1 Plt Count 202 MPV 8.9 Neut # (Auto) 5.2 Lymph # (Auto) 1.5 [place] # (Auto) 0.7 Eos # (Auto) 0.3 Baso # (Auto) 0.1 Absolute Nucleated RBC 0.00 Nucleated RBC % 0.0 ESR 1 Sodium 131 L Potassium 4.1 Chloride 98 L Carbon Dioxide 23 Anion Gap 10.0 BUN 18 Creatinine 0.9 Estimated GFR (MDRD) 88 L Glucose 422 H Calcium 8.6 Total Bilirubin 0.5 AST 22 ALT 38 Alkaline Phosphatase 98 C-Reactive Protein Total Protein 7.0 Albumin 4.1 Globulin 2.9 Albumin/Globulin Ratio 1.4 Lipase 37 09/24/18 15:57 WBC RBC Hgb Hct MCV MCH MCHC RDW Plt Count MPV Neut # (Auto) Lymph # (Auto) [place] # (Auto) Eos # (Auto) Baso # (Auto) Absolute Nucleated RBC Nucleated RBC % ESR Sodium Potassium Chloride Carbon Dioxide Anion Gap BUN Creatinine Estimated GFR (MDRD) Glucose Calcium Total Bilirubin AST ALT Alkaline Phosphatase C-Reactive Protein < 1.0 Total Protein Albumin Globulin Albumin/Globulin Ratio Lipase - Rads (name of study) L foot 3v Radiology: EMP read contemporaneously (neg) PD MEDICAL DECISION MAKING - ED course ED course: 53-year-old gentleman with peripheral neuropathy due to diabetes and recurrent diabetic foot infections presents with a thick callus on the plantar surface of the left foot with possible underlying infection. It was not clear if there actually was an infection so after informed consent the bottom of the foot was prepped with Hibiclens and then locally infiltrated with buffered lidocaine and then an 18-gauge needle was used to kind of digging into the callus which was quite thick but there was no purulent material there. That combined with the reassuring inflammatory markers suggest there is no active infection and watchful waiting was advised. 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 Follow-up with your doctor in a few days for a wound check. Your blood pressure was elevated today on check into the emergency department. This does not mean that you have hypertension, it is a common phenomenon to come to the emergency department and have elevated blood pressure. I recommend that you see your primary care physician within the week to have it rechecked when you are feeling better.
[2018-09-24 16:03] LABS: BASOPHILS # (AUTO) 0.1 10^3/uL (0.0-0.1); BASOPHILS % (AUTO) 1.1 %; EOSINOPHILS # (AUTO) 0.3 10^3/uL (0.0-0.7); EOSINOPHILS % (AUTO) 3.7 %; HGB - HEMOGLOBIN 16.2 g/dL (14.0-18.0); LYMPHOCYTES # (AUTO) 1.5 10^3/uL (1.5-3.5); LYMPHOCYTES % (AUTO) 19.3 %; MEAN CORPUSCULAR HEMOGLOBIN 32.4 pg (27.0-31.0); MEAN CORPUSCULAR HGB CONC 33.8 g/dL (32.0-36.0); MEAN CORPUSCULAR VOLUME 95.7 fL (80.0-94.0); MEAN PLATELET VOLUME 8.9 fL (7.4-11.4); MONOCYTES # (AUTO) 0.7 10^3/uL (0.0-1.0); MONOCYTES % (AUTO) 9.4 %; NEUTROPHILS # (AUTO) 5.2 10^3/uL (1.5-6.6); NEUTROPHILS % (AUTO) 66.5 %; PLT - PLATELET COUNT 202 10^3/uL (130-450); RED CELL DISTRIBUTION WIDTH 13.1 % (12.0-15.0); WHITE BLOOD COUNT 7.7 x10^3/uL (4.8-10.8)
[2018-09-24 16:13] LABS: ALBUMIN 4.1 g/dL (3.2-5.5); ALBUMIN/GLOBULIN RATIO 1.4 (1.0-2.2); BILIRUBIN,TOTAL 0.5 mg/dL (0.2-1.0); CALCIUM 8.6 mg/dL (8.5-10.3); CREATININE 0.9 mg/dL (0.6-1.2)
--- NOTE | 2018-09-24 16:35 | XRAY Report ---
Reason: sore under 3rd MT Procedure Date: 09/24/2018 Accession Number: [id number] / [id number] Procedure: XR - Foot 3 View LT CPT Code: FULL RESULT: EXAM: LEFT FOOT RADIOGRAPHY EXAM DATE: 09/24/2018 04:11 PM. CLINICAL HISTORY: Sore under 3rd MT. COMPARISON: FOOT 3 VIEW LT 04/30/2017 4:08 PM. TECHNIQUE: 3 views. FINDINGS: Bones: Amputation of the second toe, as before. Chronic appearing interval amputation at the level of the distal fifth metatarsal. Chronic partial collapse of the third and fourth metatarsal heads, unchanged. No lytic or sclerotic lesions. No cortical erosion or periosteal reaction. Shaft of the first metatarsal. Joints: Mild third and fourth hammertoe deformities. No subluxation. No milvia joint space narrowing. No erosion. Soft Tissues: No milvia soft tissue swelling. No calcification or radiopaque foreign body. IMPRESSION: 1. No current radiographic evidence of osteomyelitis. 2. Prior second toe amputation. Prior fifth ray amputation at the distal metatarsal shaft. 3. Chronic partial collapse of third and fourth metatarsal heads, as before. 4. Old healed first metatarsal shaft fracture. RADIA
[2018-09-24 16:57] VITALS: BP 162/100
== END 2018-09-24 17:00 | disposition home or self-care (01) ==
LOC: ED 15:31
DX: E11.628 Type 2 diabetes mellitus with other skin complications (principal); E11.42 Type 2 diabetes mellitus with diabetic polyneuropathy; Z89.429 Acquired absence of other toe(s), unspecified side; F17.200 Nicotine dependence, unspecified, uncomplicated; I10 Essential (primary) hypertension; Z79.4 Long term (current) use of insulin
CPT/HCPCS: 36415; 80053; 83690; 85025; 85651; 86140; 87040; 96365; 99283

== ENCOUNTER 2018-12-28 18:13 | Outpatient (CLI) | payer MEDICAID | END 2018-12-28 18:14 | disposition critical access hospital (66) | LOC: EMS 18:13 | PROVIDERS: ATTEND Surgery | DX: R42 Dizziness and giddiness (principal); R53.1 Weakness; R06.02 Shortness of breath; R73.9 Hyperglycemia, unspecified; R29.898 Other symptoms and signs involving the musculoskeletal system | CPT/HCPCS: A0425; A0429; A0999 ==

== ENCOUNTER 2018-12-28 18:32 | Emergency (ER) | payer MEDICAID ==
[2018-12-28 19:55] LABS: BASOPHILS # (AUTO) 0.1 10^3/uL (0.0-0.1); BASOPHILS % (AUTO) 0.8 %; EOSINOPHILS # (AUTO) 0.1 10^3/uL (0.0-0.7); EOSINOPHILS % (AUTO) 1.2 %; HGB - HEMOGLOBIN 15.1 g/dL (14.0-18.0); LYMPHOCYTES # (AUTO) 1.1 10^3/uL (1.5-3.5); LYMPHOCYTES % (AUTO) 9.1 %; MEAN CORPUSCULAR HEMOGLOBIN 31.6 pg (27.0-31.0); MEAN CORPUSCULAR HGB CONC 33.4 g/dL (32.0-36.0); MEAN CORPUSCULAR VOLUME 94.6 fL (80.0-94.0); MEAN PLATELET VOLUME 8.9 fL (7.4-11.4); MONOCYTES # (AUTO) 1.3 10^3/uL (0.0-1.0); MONOCYTES % (AUTO) 10.7 %; NEUTROPHILS # (AUTO) 9.2 10^3/uL (1.5-6.6); NEUTROPHILS % (AUTO) 78.2 %; PLT - PLATELET COUNT 213 10^3/uL (130-450); RED BLOOD COUNT 4.78 10^6/uL (4.70-6.10); RED CELL DISTRIBUTION WIDTH 13.6 % (12.0-15.0); WHITE BLOOD COUNT 11.8 x10^3/uL (4.8-10.8)
--- NOTE | 2018-12-28 20:03 | ED Physician Documentation ---
PD HPI URI - Stated complaint Stated Complaint: WEAK/SOA - Chief complaint Chief Complaint: General - History obtained from History obtained from: Patient - History of Present Illness Timing - onset: How many days ago (2-3) Timing duration: Days (2-3) Timing details: Gradual onset Associated symptoms: Chills, Dyspnea, Other (feeling of general malaise and aches.). No: Fever, Swollen nodes, Dry cough Contributing factors: No: Sick contact Similar symptoms before: Has not had sx before (has had the pain in foot with thickened callus. Prior foot infections with toe amputations, so he is concerned abut any potenbtial infections.) Review of Systems Constitutional: reports: Chills, Myalgias, Fatigue. denies: Fever Nose: denies: Rhinorrhea / runny nose, Congestion Throat: denies: Sore throat Respiratory: denies: Cough GI: reports: Nausea. denies: Abdominal Pain, Vomiting, Diarrhea : reports: Frequency. denies: Dysuria Skin: reports: Lesions (left foot callus is hurting more than usual.). denies: Rash Neurologic: reports: Generalized weakness. denies: Focal weakness, Numbness, Near syncope PD PAST MEDICAL HISTORY - Past Medical History Cardiovascular: Hypertension, High cholesterol Respiratory: None Neuro: Peripheral neuropathy Endocrine/Autoimmune: Type 2 diabetes GI: None : None HEENT: None Psych: None Musculoskeletal: None Derm: Other - Past Surgical History Past Surgical History: Yes General: Appendectomy Ortho: Amputation, Other - Present Medications Home Medications: Ambulatory Orders Medication Instructions Recorded Confirmed Insulin Glargine,Hum.rec.anlog 30 units SQ QPM 03/07/15 12/28/18 [Lantus Solostar] Gabapentin 1,200 - 1,500 mg PO DAILY 10/05/16 12/28/18 Atorvastatin Calcium 10 mg PO DAILY 07/31/17 12/28/18 Liraglutide [Victoza 2-Florian] 1.2 mg SUBQ DAILY 05/13/18 12/28/18 metFORMIN [Glucophage] 1 tab PO DAILY 09/29/18 12/28/18 Doxycycline Hyclate 100 mg PO BID #20 capsule 12/28/18 Hydrocodone/Acetaminophen 1 tab PO PRN PRN 12/28/18 12/28/18 [Hydrocodone-Acetamin 10-325 mg] amLODIPine [Norvasc] 1 tab PO DAILY 12/28/18 12/28/18 - Allergies Allergies/Adverse Reactions: Allergies Allergy/AdvReac Type Severity Reaction Status Date / Time hydromorphone [From Dilaudid] Allergy Itching Verified 12/28/18 18:46 - Social History Does the pt smoke?: No Smoking Status: Never smoker Does the pt drink ETOH?: Yes Does the pt have substance abuse?: No - Immunizations Immunizations are current?: Yes - POLST Patient has POLST: No POLST Status: Full Code PD ED PE NORMAL - Vitals Vital signs reviewed: Yes - General General: Alert and oriented X 3, No acute distress, Well developed/nourished - HEENT HEENT: Pharynx benign - Neck Neck: Supple, no meningeal sign, No adenopathy - Cardiac Cardiac: RRR, No murmur - Respiratory Respiratory: Clear bilaterally - Abdomen Abdomen: Normal bowel sounds, Soft, Non tender, Non distended - Male Male : Deferred - Rectal Rectal: Deferred - Back Back: No CVA TTP - Derm Derm: Normal color, Warm and dry - Extremities Extremities: Other (left foot near 1st/2nd MT heads with thick area of skin, hyperkeratotic, with hardness. No redness/warmth, but is locally tender. ) - Neuro Neuro: Alert and oriented X 3, No motor deficit, Normal speech Results - Vitals Vitals: Vital Signs - 24 hr 12/28/18 12/28/18 12/28/18 18:43 18:50 20:33 Temperature 36.9 C Heart Rate 87 81 73 Respiratory 18 18 Rate Blood Pressure 120/83 H 117/81 H O2 Saturation 98 98 98 12/28/18 12/28/18 21:28 22:18 Temperature 37.0 C Heart Rate 74 76 Respiratory 16 12 Rate Blood Pressure 113/73 123/81 H O2 Saturation 95 98 Oxygen O2 Source Room air - Labs Labs: Laboratory Tests 12/28/18 12/28/18 12/28/18 19:50 19:50 20:18 WBC 11.8 H RBC 4.78 Hgb 15.1 Hct 45.2 MCV 94.6 H MCH 31.6 H MCHC 33.4 RDW 13.6 Plt Count 213 MPV 8.9 Neut # (Auto) 9.2 H Lymph # (Auto) 1.1 L [place] # (Auto) 1.3 H Eos # (Auto) 0.1 Baso # (Auto) 0.1 Absolute Nucleated RBC 0.00 Nucleated RBC % 0.0 ESR Sodium 128 L Potassium 4.3 Chloride 94 L Carbon Dioxide 25 Anion Gap 9.0 BUN 19 Creatinine 1.2 Estimated GFR (MDRD) 63 L Glucose 309 H Calcium 8.8 Magnesium 2.0 Total Bilirubin 0.7 AST 21 ALT 30 Alkaline Phosphatase 67 Troponin I Total Protein 6.9 Albumin 3.9 Globulin 3.0 Albumin/Globulin Ratio 1.3 Influenza A (Rapid) Influenza B (Rapid) 12/28/18 12/28/18 12/28/18 20:18 20:19 20:30 WBC RBC Hgb Hct MCV MCH MCHC RDW Plt Count MPV Neut # (Auto) Lymph # (Auto) [place] # (Auto) Eos # (Auto) Baso # (Auto) Absolute Nucleated RBC Nucleated RBC % ESR 1 Sodium Potassium Chloride Carbon Dioxide Anion Gap BUN Creatinine Estimated GFR (MDRD) Glucose Calcium Magnesium Total Bilirubin AST ALT Alkaline Phosphatase Troponin I < 0.04 Total Protein Albumin Globulin Albumin/Globulin Ratio Influenza A (Rapid) Negative Influenza B (Rapid) Negative - Rads (name of study) chest xray Radiology: Prelim report reviewed (no infiltrates), EMP read contemporaneously, See rad report left foot Radiology: Prelim report reviewed (no signs of bony lesions. ), See rad report PD MEDICAL DECISION MAKING - ED course Complexity details: reviewed results, considered differential (foot callus is firm and tender, without redness nor warmth. He says it was draining into his sock, but no drainage now, so no culture obtained. I offered to cut down the thickened area again, but he says he is seeing Ortho in few days. He is concerned about infection. He does not seem septic. I think his general symptoms sound more viral. ), d/w patient Departure - Departure Disposition: 01 Home, Self Care Clinical Impression: Flu-like symptoms, Foot callus, Wound infection Condition: Stable Record reviewed to determine appropriate education?: Yes Prescriptions: Doxycycline Hyclate 100 mg PO BID #20 capsule Comments: Your symptoms sound flulike. Your flu test is negative but still can be a viral illness. I do not see any an indication for a significant bacterial infection such as pneumonia. Your foot callus may have some infection to it we can go some antibiotics in case. It does not look significantly infected. Follow-up this week with the orthopedist for your foot. Soak your foot in warm water 2-3 times a day to soften the callus. Discharge Date/Time: 12/28/18 22:19
[2018-12-28 20:11] LABS: ALBUMIN 3.9 g/dL (3.2-5.5); ALBUMIN/GLOBULIN RATIO 1.3 (1.0-2.2); BILIRUBIN,TOTAL 0.7 mg/dL (0.2-1.0); CALCIUM 8.8 mg/dL (8.5-10.3); CREATININE 1.2 mg/dL (0.6-1.2); TOTAL PROTEIN 6.9 g/dL (6.7-8.2)
[2018-12-28] MEDS ORDERED: SODIUM CHLORIDE 0.9% 1,000 ML IV ONE (20:15)
[2018-12-28] MEDS ORDERED: KETOROLAC 15 MG/ML VIAL IVP STA (20:16)
--- NOTE | 2018-12-28 20:31 | XRAY Report ---
Reason: soa Procedure Date: 12/28/2018 Accession Number: [id number] / [id number] Procedure: XR - Chest 2 View X-Ray CPT Code: 95174 FULL RESULT: EXAM: CHEST RADIOGRAPHY EXAM DATE: 12/28/2018 07:56 PM. CLINICAL HISTORY: Shortness of breath. COMPARISON: CHEST 1 VIEW 07/11/2016 2:22 AM. TECHNIQUE: 2 views. FINDINGS: Lungs/Pleura: No focal opacities evident. No pleural effusion. No pneumothorax. Normal volumes. Mediastinum: Heart and mediastinal contours are unremarkable. Other: No compression fractures. IMPRESSION: Normal 2-view chest radiography. RADIA
--- NOTE | 2018-12-28 20:56 | XRAY Report ---
Reason: foot sore/ulcer; eval for bone lesion Procedure Date: 12/28/2018 Accession Number: [id number] / [id number] Procedure: XR - Foot 3 View LT CPT Code: FULL RESULT: EXAM: LEFT FOOT RADIOGRAPHY EXAM DATE: 12/28/2018 08:30 PM. CLINICAL HISTORY: Foot sore/ulcer; eval for bone lesion. COMPARISON: FOOT 3 VIEW LT 09/24/2018 3:53 PM. TECHNIQUE: 3 views. FINDINGS: Bones: No evidence of acute fracture or focal bony lesion. Patient has undergone amputation through the fifth metatarsal and second metatarsophalangeal joint. Joints: No evidence of dislocation. Soft Tissues: No unexpected soft tissue findings. IMPRESSION: No evidence of acute fracture or focal bony lesion. RADIA
[2018-12-28 22:19] VITALS: BP 123/81
== END 2018-12-28 22:19 | disposition home or self-care (01) ==
LOC: EDUNIT# → ED 18:32
DX: L84 Corns and callosities (principal); L08.9 Local infection of the skin and subcutaneous tissue, unspecified; M79.10 Myalgia, unspecified site; R68.83 Chills (without fever); R06.00 Dyspnea, unspecified; R53.83 Other fatigue; R53.1 Weakness; R11.0 Nausea; E11.42 Type 2 diabetes mellitus with diabetic polyneuropathy; Z79.4 Long term (current) use of insulin; I10 Essential (primary) hypertension
CPT/HCPCS: 36415; 71046; 80053; 83735; 84484; 85025; 85651; 87275; 87276; 96361; 96374; 99283; 99284

== ENCOUNTER 2019-01-05 08:07 | Inpatient (IN) | payer MEDICAID ==
[2019-01-05] MEDS ORDERED: LACTATED RINGERS 1,000 ML IV ONE (08:40)
[2019-01-05] MEDS ORDERED: ceFAZolin 2 GM/50 ML 2 GM/50 ML BAG IV ONE (09:09)
[2019-01-05] MEDS ORDERED: LIDOCAINE-MPF 1% 30 ML VIAL ONE (09:20)
[2019-01-05] MEDS ORDERED: BUPIVACAINE 0.5% PF 30 ML VIAL ONE (09:20)
--- NOTE | 2019-01-05 09:29 | ANESTHESIA ---
Pre-Anesthesia VS, & Labs - Diagnosis left foot diabetic ulcer - Procedure left foot diabetic ulcer debridement Vital Signs: Temp Pulse Resp BP Pulse Ox 36.9 C 74 12 144/98 H 95 01/05/19 08:48 01/05/19 08:48 01/05/19 08:48 01/05/19 08:48 01/05/19 08:48 Height 6 ft 2 in Weight (kg) 92.4 kg Body Mass Index 26.9 - NPO >8 hours - Lab Results Current Lab Results: Laboratory Tests 01/05/19 09:07: POC Whole Bld Glucose 272 H Home Medications and Allergies Insulin Glargine,Hum.rec.anlog [Lantus Solostar] 30 units SQ QPM 03/07/15 Gabapentin 1,500 - 3,000 mg PO DAILY 10/05/16 Atorvastatin Calcium 10 mg PO DAILY 07/31/17 Liraglutide [Victoza 2-Florian] 1.2 mg SUBQ DAILY 05/13/18 metFORMIN [Glucophage] 1 tab PO DAILY 09/29/18 Hydrocodone/Acetaminophen [Hydrocodone-Acetamin 10-325 mg] 1 tab PO PRN PRN 12/28/18 amLODIPine [Norvasc] 1 tab PO DAILY 12/28/18 Allergies/Adverse Reactions: Allergies Allergy/AdvReac Type Severity Reaction Status Date / Time hydromorphone [From Dilaudid] Allergy Itching Verified 12/28/18 18:46 Anes History & Medical History - Anesthetic History Anesthesia Complications: reports: No previous complications - Medical History Cardiovascular: reports: Hypertension, High cholesterol Pulmonary: reports: None Gastrointestinal: reports: None Urinary: reports: None Neuro: reports: Peripheral neuropathy Musculoskeletal: reports: Other Endocrine/Autoimmune: reports: Type 2 diabetes Blood Disorders: reports: None Skin: reports: None Smoking Status: Never smoker - Surgical History General: Appendectomy Orthopedic: Amputation Exam General: Alert Dental: WNL, Partials Upper Mouth Opening: Greater than 4 Fingerbreadths Mallampati classification: III Thyromental Distance: greater than 6 cm Respiratory: Lungs clear Cardiovascular: Regular rate, Normal S1, Normal S2 Mental/Cognitive Status: Alert/Oriented X3 Plan Anesthesia Type: MAC Consent for Procedure(s) Verified and Reviewed: Yes Code Status: Attempt Resuscitation ASA classification: 3-Severe systemic disease Is this case an emergency?: No
[2019-01-05] MEDS ORDERED: LIDOCAINE 1%-EPI 1:100000 30 ML MDV ONE (09:37)
[2019-01-05] MEDS ORDERED: INSULIN REGULAR HUMAN 100 UNIT/1 ML 10 ML MDV ONE (09:38)
[2019-01-05] MEDS ORDERED: KETAMINE 500 MG/10 ML VIAL IVP ONE (10:15)
[2019-01-05] MEDS ORDERED: MIDAZOLAM 2 MG/2 ML VIAL IVP ONE (10:15)
[2019-01-05] MEDS ORDERED: PROPOFOL 200 MG/20 ML VIAL IVP ONE (10:15)
[2019-01-05] MEDS ORDERED: PROCHLORPERAZINE 10 MG/2 ML VIAL IVP PRN (10:59)
[2019-01-05] MEDS ORDERED: ONDANSETRON 4 MG/2 ML VIAL IVP PRN (10:59)
[2019-01-05 11:58] LABS: BASOPHILS # (AUTO) 0.1 10^3/uL (0.0-0.1); BASOPHILS % (AUTO) 1.4 %; EOSINOPHILS # (AUTO) 0.2 10^3/uL (0.0-0.7); HGB - HEMOGLOBIN 14.8 g/dL (14.0-18.0); LYMPHOCYTES # (AUTO) 1.5 10^3/uL (1.5-3.5); LYMPHOCYTES % (AUTO) 20.1 %; MEAN CORPUSCULAR HEMOGLOBIN 31.9 pg (27.0-31.0); MEAN CORPUSCULAR HGB CONC 33.8 g/dL (32.0-36.0); MEAN CORPUSCULAR VOLUME 94.5 fL (80.0-94.0); MONOCYTES # (AUTO) 0.8 10^3/uL (0.0-1.0); MONOCYTES % (AUTO) 10.5 %; PLT - PLATELET COUNT 235 10^3/uL (130-450); RED BLOOD COUNT 4.65 10^6/uL (4.70-6.10); RED CELL DISTRIBUTION WIDTH 13.4 % (12.0-15.0); WHITE BLOOD COUNT 7.7 x10^3/uL (4.8-10.8)
[2019-01-05] MEDS ORDERED: INSULIN ASPART 300 UNIT/3 ML PEN SUBQ SCH (12:00)
[2019-01-05 12:14] LABS: ALBUMIN 3.6 g/dL (3.2-5.5); ALBUMIN/GLOBULIN RATIO 1.3 (1.0-2.2); BILIRUBIN,TOTAL 0.5 mg/dL (0.2-1.0); CALCIUM 8.4 mg/dL (8.5-10.3); CREATININE 0.7 mg/dL (0.6-1.2); TOTAL PROTEIN 6.3 g/dL (6.7-8.2)
[2019-01-05 12:21] LABS: HB2 TOTAL 16.6 g/dL; HEMOGLOBIN A1C 1.51 g/dL; HEMOGLOBIN A1C % 10.5 % (4.6-6.2)
[2019-01-05] MEDS: oxyCODONE 5 MG TABLET PO PRN ×2 (12:58→17:20)
[2019-01-05] MEDS: GABAPENTIN 300 MG CAPSULE PO SCH (12:58)
[2019-01-05] MEDS: amLODIPine 5 MG TABLET PO SCH (12:58)
[2019-01-05] MEDS: NICOTINE 14 MG PATCH TOP SCH (13:00)
--- NOTE | 2019-01-05 13:08 | OPERATIVE REPORT ---
DATE OF SERVICE: 01/05/2019 Physician: Eric Yost MD PREOPERATIVE DIAGNOSIS: Infected left foot diabetic ulcer. POSTOPERATIVE DIAGNOSIS: Infected left foot diabetic ulcer. PROCEDURE PERFORMED: Debridement of diabetic left foot ulcer involving skin, subcutaneous fat, and bone. OPERATING SURGEON: Eric Yost MD ANESTHESIA: Local, MAC, and ketamine; Selvin Douglass INDICATIONS FOR SURGERY: Patient is a 53-year-old male with fairly unstable diabetes, who has had loss of multiple prior toes secondary to diabetic foot ulceration and infection, and he now has developed continuous ulceration on the plantar aspect of the second metatarsal head in an area where he has had a prior second toe amputation. Initially when he presented to my office, this area was sealed and hypertrophic. Then the patient disappeared for an extended period and returned having central breakdown and drainage. He has not developed evidence of an abscess or global foot infection, and has not been ill, but he is scheduled and has consented to undergo a deep debridement of that area of skin, subcutaneous tissue, and metatarsal head, with subsequent antibiotics in an effort to try to salvage his foot. FINDINGS AT SURGERY: The patient's foot showed a 1-inch diameter circular hypertrophic area of callus directly beneath the patient's second metatarsal head. In the central part of this, there was a punctate opening of about 2 to 3 mm with no active drainage, even when compression is applied. At deep surgery, there was infected tissue tracking down through this area that extended towards bone, but did not seem to involve any of the articular covered metatarsal head, and there was not extensive involvement of surrounding tissues, but simply a tract to bone. DESCRIPTION OF OPERATIVE PROCEDURE: The patient was taken to the operating room. He was given ketamine and IV regional medications and underwent an ankle block utilizing Marcaine with epinephrine. Surgical timeout was held. The patient's foot was then initially simply debrided by shaving off the callus down to the punctate opening and thickened skin around it, and then an elliptical aggressive incision was made in line with the direction of the metatarsal, and an ellipse of tissue was taken from both sides and the deeper tissue placed into a container to be sent for culture and Gram stain. Further dissection took us directly to the cartilage covered metatarsal head, which was resected, and this bone was healthy and did not show evidence of invasion of infection. This debulking resulted in an abundance of tissue that allowed further decompression of some of the adjacent tissue down to very healthy-appearing noninfected tissue. It was elected to gently pack Nu Gauze into the base of the wound and close in the skin with interrupted nylon sutures. Sterile dressings were applied. The patient was then taken to the recovery room in stable condition. ESTIMATED BLOOD LOSS: Minimal. COMPLICATIONS: None. SPONGE AND NEEDLE COUNTS: Correct. TOURNIQUET TIME: A tourniquet to 250 mmHg was used for no more than about 15 minutes. TD: 01/05/2019 12:28 MTDD
[2019-01-05] MEDS: CLINDAMYCIN 900 MG/50 ML 50 ML IV SCH ×2 (14:39→17:21)
[2019-01-05] MEDS: MULTIVITAMIN W/MINERALS TABLET PO SCH (14:39)
[2019-01-05] MEDS: INSULIN GLARGINE 300 UNIT/3 ML PEN SUBQ SCH (14:43)
[2019-01-05] MEDS: ACETAMINOPHEN/CODEINE 300 MG/30 MG TABLET PO PRN ×2 (14:51→21:30)
[2019-01-05] MEDS ORDERED: SODIUM CHLORIDE 0.9% 500 ML IV PRN (15:55)
[2019-01-05] MEDS: ACETAMINOPHEN 325 MG TABLET PO PRN (17:20)
[2019-01-05] MEDS: ceFAZolin 2 GM/50 ML 2 GM/50 ML BAG IV SCH (17:21)
[2019-01-05] MEDS: SODIUM CHLORIDE FLUSH 0.9% 10 ML SYRINGE IVP SCH (17:22)
[2019-01-05] MEDS: fentaNYL 100 MCG/2 ML VIAL IVP PRN ×2 (18:36→22:55)
--- NOTE | 2019-01-05 19:00 | CONSULTATION NOTE ---
DATE OF SERVICE: 01/05/2019 Physician: Laisha Lara MD HISTORY OF PRESENT ILLNESS: This is a 53-year-old white male with a history of insulin-dependent diabetes, he is a type 2 diabetic, history of recurrent foot ulcers and infections, prior need for debridement, prior osteomyelitis, prior toe amputation. The patient has had a smelly, draining wound of the dorsum of his foot under his left great toe for several weeks. He underwent elective surgery today with orthopedics, which included debridement and removal of some bone of his great toe on the left. Dr. Yost has asked for internal medicine/Hospitalist consult for management of his diabetes and infection. The patient is postop day #0 today. The patient complains of moderate pain at the surgical site, states that he would take 2 of his Tylenol with codeine for pain control at home. He describes no recent fever, has not had any recent antibiotics, describes a foul smelling discharge for several days or weeks. He describes no elevation of glucose blood tests and reminds me that he is a brittle diabetic: when he was on a high sliding scale insulin coverage in the past, he had hypoglycemic events. He was told to take his long-acting insulin anytime of the day; therefore, he takes it with all of his medications, all at once, all are in the morning. ALLERGIES: HYDROMORPHONE, WHICH CAUSED ITCHING. MEDICATIONS 1. Lipitor 10 mg daily. 2. Gabapentin 1500 mg daily. 3. Lantus insulin 30 units subcutaneous daily. 4. Tylenol with codeine p.r.n. pain. 5. Amlodipine 10 mg daily. 6. Victoza 1.2 mg subcutaneous daily. 7. Metformin, unknown dose daily. 8. Ambien prn REVIEW OF SYSTEMS: A comprehensive review of systems was performed, the pertinent positives are listed, the rest are negative. FAMILY HISTORY: No inherited diseases. SOCIAL HISTORY: The patient is now on disability. 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 He is a smoker. He does drink alcohol. No illicit drug use history. PHYSICAL EXAMINATION GENERAL: Middle-aged white male appears in no distress. VITAL SIGNS: Blood pressure 140/90, heart rate in the 60s-70s. He is in sinus rhythm, afebrile, room air saturation 98%. HEENT: Unremarkable. His dentition is good. NECK: Without JVD or carotid bruits. LUNGS: Clear. HEART: Sounds normal. No murmur. ABDOMEN: Soft, positive bowel sounds, nontender. No organomegaly. EXTREMITIES: No edema. There is bandage of the distal portion of the left foot. The tops of the toes are visible and they are pink, and there is bloody discharge in the gauze bandage from the surgery, which was done earlier today. NEUROLOGIC: Intact. LABORATORIES: Normal electrolytes. Normal BUN and creatinine. A1c 10.5. Normal liver tests. CBC: WBC 7.7, hemoglobin 14.8, RDW 13, platelet count normal at 235. No chest x-ray or EKG were not. IMPRESSION/DIAGNOSES 1. Diabetic foot infection, postoperative day #0 of debridement. 1. Insulin-dependent diabetic, but he is a type 2 diabetic. 2. History of hypertension. PLAN 1. I recommend adding empiric antibiotics, given his history of purulent and malodorous drainage, to cover skin bacteria and anaerobes in a diabetic; therefore, will recommend iv Clindamycin dosing. The wound was cultured already prior to this in the OR today and cultures are pending. 2. If he spikes a fever, obtain blood cultures. 3. Increase pain medications, fentanyl IV at low doses will be ordered, as well as his continued oral Tylenol with codeine p.r.n. 4. Adjust his diabetic medications as he describes in that he is very brittle and even appropriate sliding scale insulin doses can make him hypoglycemic and very uncomfortably symptomatic, he states. We will continue his Lantus 30 units subcutaneous, and consider only very low dose sliding scale insulin coverage. 5. Continue with a carb-controlled diet, 4-carbs he has requested. 6. Restart his Amlodipine for blood pressure control and Gabapentin for neuropathy or pain. 7. Begin Physical Therapy as per Orthopedics. DEEP VENOUS THROMBOSIS PROPHYLAXIS: As planned by Orthopedics. GASTRIC/STRESS ULCER PROPHYLAXIS: Recommend Pepcid b.i.d. empirically. ATTESTATION: The patient is expected to be discharged or transferred to another facility within 96 hours: Yes. TD: 01/05/2019 18:28 [facility]
[2019-01-05] MEDS ORDERED: INSULIN GLARGINE 300 UNIT/3 ML PEN SUBQ SCH (21:00)
[2019-01-05] MEDS: FAMOTIDINE 20 MG TABLET PO SCH (21:30)
[2019-01-05] MEDS: ATORVASTATIN 10 MG TABLET PO SCH (21:30)
[2019-01-06] MEDS: CLINDAMYCIN 900 MG/50 ML 50 ML IV SCH ×3 (00:28→11:52)
[2019-01-06] MEDS: oxyCODONE 5 MG TABLET PO PRN ×5 (00:31→21:30)
[2019-01-06] MEDS: ZOLPIDEM 5 MG TABLET PO PRN ×2 (00:32→23:35)
[2019-01-06] MEDS: ceFAZolin 2 GM/50 ML 2 GM/50 ML BAG IV SCH (00:34)
[2019-01-06] MEDS: fentaNYL 100 MCG/2 ML VIAL IVP PRN ×7 (01:32→23:50)
[2019-01-06] MEDS: SODIUM CHLORIDE FLUSH 0.9% 10 ML SYRINGE IVP SCH ×4 (01:32→23:51)
[2019-01-06 05:47] LABS: BASOPHILS # (AUTO) 0.1 10^3/uL (0.0-0.1); EOSINOPHILS # (AUTO) 0.2 10^3/uL (0.0-0.7); EOSINOPHILS % (AUTO) 2.8 %; HGB - HEMOGLOBIN 14.4 g/dL (14.0-18.0); LYMPHOCYTES # (AUTO) 1.5 10^3/uL (1.5-3.5); LYMPHOCYTES % (AUTO) 19.8 %; MEAN CORPUSCULAR HEMOGLOBIN 31.8 pg (27.0-31.0); MEAN CORPUSCULAR VOLUME 93.6 fL (80.0-94.0); MEAN PLATELET VOLUME 8.3 fL (7.4-11.4); MONOCYTES % (AUTO) 13.2 %; NEUTROPHILS # (AUTO) 4.8 10^3/uL (1.5-6.6); NEUTROPHILS % (AUTO) 63.2 %; PLT - PLATELET COUNT 216 10^3/uL (130-450); RED BLOOD COUNT 4.53 10^6/uL (4.70-6.10); WHITE BLOOD COUNT 7.6 x10^3/uL (4.8-10.8)
[2019-01-06] MEDS: INSULIN GLARGINE 300 UNIT/3 ML PEN SUBQ SCH (08:01)
[2019-01-06] MEDS: MULTIVITAMIN W/MINERALS TABLET PO SCH (08:04)
[2019-01-06] MEDS: amLODIPine 5 MG TABLET PO SCH (08:05)
[2019-01-06] MEDS: GABAPENTIN 300 MG CAPSULE PO SCH (08:05)
[2019-01-06] MEDS: NICOTINE 14 MG PATCH TOP SCH (08:05)
[2019-01-06] MEDS: FAMOTIDINE 20 MG TABLET PO SCH ×2 (08:05→20:17)
[2019-01-06] MEDS: SODIUM CHLORIDE FLUSH 0.9% 10 ML SYRINGE IVP PRN ×2 (10:10→13:46)
--- NOTE | 2019-01-06 10:57 | PROVIDER PROGRESS NOTE ---
Assessment/Plan - Problem List (1) Diabetic foot ulcer Assessment/Plan: He is POD #1 after debridement with part of bone removed. Cultures of the wound were sent from OR. No growth yet. Patient is on empiric Clindamycin iv. WBC is normal. Pain at surgical site is controlled with iv Fentanyl prn, po T&C prn and scheduled Gabapentin, at current dose. He will start PT today. Await culture results to determine type and course of antibiotic treatment. He may need 2-4 weeks of iv antibiotics. In his history, he required iv antibiotics and was to come to [facility] clinic here for that, but apparently he was a No Show. Eval for PVD is also planned: will obtain arterial Doppler of both lower extremities. (2) IDDM (insulin dependent diabetes mellitus) Assessment/Plan: Pt on 4-carb controlled diet, has no hunger. Continue his LAntus dose. Will add low-dose sliding scale Insulin, being careful to avoid low blood sugars, which he is prone to. (3) HTN (hypertension) Qualifiers: Hypertension type: unspecified secondary hypertension Qualified Code(s): I15.9 - Secondary hypertension, unspecified; I15 - Secondary hypertension Assessment/Plan: Stable on his Amlodipine home dose. - Current Meds Current Meds: Current Medications Generic Name Dose Route Start Last Admin Trade Name Freq PRN Reason Stop Dose Admin Acetaminophen 650 - 975 mg 01/05/19 10:59 01/05/19 17:20 Tylenol PO 975 mg Q4HR PRN Administration PAIN Acetaminophen/Codeine Phosphate 2 tab 01/05/19 13:14 01/05/19 21:30 Tylenol #3 PO 2 tab Q6HR PRN Administration PAIN Amlodipine Besylate 5 mg 01/05/19 11:46 01/06/19 08:05 Norvasc PO 5 mg DAILY LILLIAN Administration Atorvastatin Calcium 10 mg 01/05/19 21:00 01/05/19 21:30 Lipitor PO 10 mg QPM LILLIAN Administration Famotidine 20 mg 01/05/19 21:00 01/06/19 08:05 Pepcid PO 20 mg BID LILLIAN Administration Fentanyl 25 mcg 01/05/19 17:56 01/06/19 10:10 Fentanyl IVP 25 mcg Q2HR PRN Administration PAIN Gabapentin 1,500 mg 01/05/19 12:00 01/06/19 08:05 Neurontin PO 1,500 mg DAILY LILLIAN Administration Clindamycin Phosphate 50 mls @ 50 mls/hr 01/05/19 14:00 01/06/19 07:29 Cleocin 900 Mg/50 Ml IV Infused Q6HR LILLIAN Infusion Sodium Chloride 500 mls @ 0 mls/hr 01/05/19 15:55 01/05/19 17:21 Normal Saline 0.9% IV 20 mls/hr Q24H PRN Administration TKO RATE TKO Insulin Glargine 30 unit 01/05/19 13:13 01/06/19 08:01 Lantus Solostar SUBQ 30 unit DAILY LILLIAN Administration Multivitamins/Minerals 1 tab 01/05/19 15:00 01/06/19 08:04 Theragran M PO 1 tab DAILYWM LILLIAN Administration Nicotine 1 patch 01/05/19 12:00 01/06/19 08:05 Nicoderm TOP 1 patch DAILY LILLIAN Administration Oxycodone HCl 5 mg 01/05/19 10:59 01/06/19 08:05 Roxicodone PO 5 mg Q4HR PRN Administration PAIN Sodium Chloride 10 ml 01/05/19 17:00 01/06/19 05:22 Normal Saline Flush 0.9% IVP 10 ml 0100,0900,1700 LILLIAN Administration Sodium Chloride 10 ml 01/05/19 10:59 01/06/19 10:10 Normal Saline Flush 0.9% IVP 10 ml PRN PRN Administration NEEDED PER PROVIDER ORDERS Zolpidem Tartrate 5 mg 01/05/19 17:54 01/06/19 00:32 Ambien PO 5 mg QPM PRN Administration Insomnia - Lab Result Fish Bone Diagrams: 01/06/19 05:10 01/05/19 11:55 - Additional Planning My Orders: My Active Orders 01/05/19 11:40 Blood Glucose Checks - Eating [RC] 0800,1200,1700,2100 Initiate Hypoglycemia Protocol [RC] .protocol 01/05/19 11:46 amLODIPine [Norvasc] 5 mg PO DAILY 01/05/19 12:00 Gabapentin [Neurontin] 1,500 mg PO DAILY Nicotine 14 mg Patch [Nicoderm] 1 patch TOP DAILY 01/05/19 13:13 Insulin Glargine [Lantus Solostar] 30 unit SUBQ DAILY 01/05/19 13:14 Acetaminophen/Cod 300/30 [Tylenol #3] 2 tab PO Q6HR PRN 01/05/19 14:00 Clindamycin 900 mg/50 ml [Cleocin 900 mg/50 ml] 50 ml IV Q6HR 01/05/19 17:54 Zolpidem [Ambien] 5 mg PO QPM PRN 01/05/19 17:56 fentaNYL 25 mcg IVP Q2HR PRN 01/05/19 21:00 Atorvastatin [Lipitor] 10 mg PO QPM Famotidine [Pepcid] 20 mg PO BID 01/06/19 12:00 Insulin Aspart [NovoLOG] 1 - 5 unit SUBQ 0800,1200,1700,2100 01/07/19 05:00 CBC - COMP BLD CT W/AUTO DIFF [HEME] DAILYLAB 01/08/19 05:00 CBC - COMP BLD CT W/AUTO DIFF [HEME] DAILYLAB Subjective - Subjective Patient Reports: Feeling Better, Resting Comfortably Nursing Reports: Other (He refused to get OOB to chair until starts that with PT, which the Orthopedist ordered to start today.) Objective Vital Signs: Vital Signs - 24 hr 01/05/19 01/05/19 01/05/19 10:59 11:29 12:29 Temperature 36.4 C L 36.5 C 36.5 C Heart Rate Heart Rate [ 64 59 L 70 Brachial] Respiratory 16 16 16 Rate Blood Pressure 116/72 131/76 H 152/89 H [Left Brachial artery] O2 Saturation 96 99 99 01/05/19 01/05/19 01/05/19 13:29 17:22 21:00 Temperature 36.4 C L 36.7 C Heart Rate Heart Rate [ 63 81 74 Brachial] Respiratory 16 16 16 Rate Blood Pressure 141/94 H 163/86 H 140/83 H [Left Brachial artery] O2 Saturation 98 98 96 01/06/19 01/06/19 01/06/19 00:15 00:42 06:51 Temperature 36.3 C L 36.3 C L 36.3 C L Heart Rate 77 Heart Rate [ 77 72 Brachial] Respiratory 18 18 18 Rate Blood Pressure 142/76 H 127/90 H [Left Brachial artery] O2 Saturation 97 97 96 01/06/19 08:26 Temperature 37.0 C Heart Rate Heart Rate [ 80 Brachial] Respiratory 18 Rate Blood Pressure 137/73 H [Left Brachial artery] O2 Saturation 96 Oxygen O2 Source Room air I&O (Last 24 Hrs): Intake and Output Totals x24h 01/04/19 01/05/19 01/06/19 23:59 23:59 23:59 Intake Total 0 710 Output Total 700 2550 Balance 1350 -1840 General: Alert, Oriented x3 HEENT: Mucous membr. moist/pink Neck: Supple Neuro: Non Focal Cardiovascular: Regular rate Respiratory: No respiratory distress Abdomen: Soft Extremities: No edema, Other (Bandaged L distal foot and toes.) - Results Results: Laboratory Results WBC 7.6 x10^3/uL (4.8-10.8) 01/06/19 05:10 RBC 4.53 10^6/uL (4.70-6.10) L 01/06/19 05:10 Hgb 14.4 g/dL (14.0-18.0) 01/06/19 05:10 Hct 42.4 % (42.0-52.0) 01/06/19 05:10 MCV 93.6 fL (80.0-94.0) 01/06/19 05:10 MCH 31.8 pg (27.0-31.0) H 01/06/19 05:10 MCHC 34.0 g/dL (32.0-36.0) 01/06/19 05:10 RDW 13.0 % (12.0-15.0) 01/06/19 05:10 Plt Count 216 10^3/uL (130-450) 01/06/19 05:10 MPV 8.3 fL (7.4-11.4) 01/06/19 05:10 Neut # (Auto) 4.8 10^3/uL (1.5-6.6) 01/06/19 05:10 Lymph # (Auto) 1.5 10^3/uL (1.5-3.5) 01/06/19 05:10 [place] # (Auto) 1.0 10^3/uL (0.0-1.0) 01/06/19 05:10 Eos # (Auto) 0.2 10^3/uL (0.0-0.7) 01/06/19 05:10 Baso # (Auto) 0.1 10^3/uL (0.0-0.1) 01/06/19 05:10 Absolute Nucleated RBC 0.00 x10^3/uL 01/06/19 05:10 Nucleated RBC % 0.0 /100WBC 01/06/19 05:10 Sodium 135 mmol/L (135-145) 01/05/19 11:55 Potassium 4.6 mmol/L (3.5-5.0) 01/05/19 11:55 Chloride 101 mmol/L (101-111) 01/05/19 11:55 Carbon Dioxide 26 mmol/L (21-32) 01/05/19 11:55 Anion Gap 8.0 (6-13) 01/05/19 11:55 BUN 10 mg/dL (6-20) 01/05/19 11:55 Creatinine 0.7 mg/dL (0.6-1.2) 01/05/19 11:55 Estimated GFR (MDRD) 117 (>89) 01/05/19 11:55 Glucose 156 mg/dL (70-100) H 01/05/19 11:55 POC Whole Bld Glucose 213 mg/dL (70 - 100) H 01/05/19 21:02 Glycated Hemoglobin 10.5 % (4.6-6.2) H 01/05/19 11:55 Estim Average Glucose 255 (70-100) H 01/05/19 11:55 Calcium 8.4 mg/dL (8.5-10.3) L 01/05/19 11:55 Total Bilirubin 0.5 mg/dL (0.2-1.0) 01/05/19 11:55 AST 15 IU/L (10-42) 01/05/19 11:55 ALT 21 IU/L (10-60) 01/05/19 11:55 Alkaline Phosphatase 65 IU/L (42-121) 01/05/19 11:55 Total Protein 6.3 g/dL (6.7-8.2) L 01/05/19 11:55 Albumin 3.6 g/dL (3.2-5.5) 01/05/19 11:55 Globulin 2.7 g/dL (2.1-4.2) 01/05/19 11:55 Albumin/Globulin Ratio 1.3 (1.0-2.2) 01/05/19 11:55 - Procedures Procedures: Procedures DETACHMENT AT LEFT 2ND TOE, COMPLETE, OPEN APPROACH (03/11/16) DETACHMENT AT LEFT 5TH TOE, COMPLETE, OPEN APPROACH (04/30/17) DETACHMENT AT RIGHT 1ST TOE, HIGH, OPEN APPROACH (10/20/16) DETACHMENT AT RIGHT 5TH TOE, COMPLETE, OPEN APPROACH (06/05/18) EXCIS DEBRIDE OF WOUND, INFECT, OR BURN (02/19/15) EXCISION OF RIGHT METATARSAL, OPEN APPROACH (06/05/18) VENOUS CATHETERIZATION NEC (02/19/15)
[2019-01-06] MEDS ORDERED: INSULIN ASPART 300 UNIT/3 ML PEN SUBQ SCH (12:00)
--- NOTE | 2019-01-06 12:59 | PROVIDER PROGRESS NOTE ---
Subjective - General Admit Date: 01/05/19 Procedure Date: 01/05/19 Post Op Days: 2 Procedure Performed: Debridement of diabetic ulcer left foot and debridement of 2nd Metatarsal - Review of Systems Wound/Incisions: positive: Drainage (mild blood stained between great and 3rd toe) Musculoskeletal: positive: Joint pain Objective - Patient Data Reviewed Vital Signs: Yes Vital Signs: Vital Signs x48h Temp Pulse Resp BP Pulse Ox 01/06/19 11:59 36.8 C 79 18 119/79 96 01/06/19 08:26 37.0 C 80 18 137/73 H 96 01/06/19 06:51 36.3 C L 72 18 127/90 H 96 Weight: Weight 01/04/19 01/05/19 01/06/19 23:59 23:59 23:59 Weight (kg) 92.4 kg Intake & Output: Intake and Output Totals x24h 01/04/19 01/05/19 01/06/19 23:59 23:59 23:59 Intake Total 2050 710 Output Total 700 3500 Balance 1350 -2790 - Lab Results Lab Results: 01/07/19 05:10 01/05/19 11:55 Other Lab Results: Lab Results x24hrs 01/06/19 01/06/19 01/06/19 Range/Units 11:19 07:52 05:10 WBC 7.6 (4.8-10.8) x10^3/uL RBC 4.53 L (4.70-6.10) 10^6/uL Hgb 14.4 (14.0-18.0) g/dL Hct 42.4 (42.0-52.0) % MCV 93.6 (80.0-94.0) fL MCH 31.8 H (27.0-31.0) pg MCHC 34.0 (32.0-36.0) g/dL RDW 13.0 (12.0-15.0) % Plt Count 216 (130-450) 10^3/uL MPV 8.3 (7.4-11.4) fL Neut # (Auto) 4.8 (1.5-6.6) 10^3/uL Lymph # (Auto) 1.5 (1.5-3.5) 10^3/uL [place] # (Auto) 1.0 (0.0-1.0) 10^3/uL Eos # (Auto) 0.2 (0.0-0.7) 10^3/uL Baso # (Auto) 0.1 (0.0-0.1) 10^3/uL Absolute Nucleated RBC 0.00 x10^3/uL Nucleated RBC % 0.0 /100WBC POC Whole Bld Glucose 234 H 220 H (70 - 100) mg/dL 01/05/19 01/05/19 Range/Units 21:02 16:44 WBC (4.8-10.8) x10^3/uL RBC (4.70-6.10) 10^6/uL Hgb (14.0-18.0) g/dL Hct (42.0-52.0) % MCV (80.0-94.0) fL MCH (27.0-31.0) pg MCHC (32.0-36.0) g/dL RDW (12.0-15.0) % Plt Count (130-450) 10^3/uL MPV (7.4-11.4) fL Neut # (Auto) (1.5-6.6) 10^3/uL Lymph # (Auto) (1.5-3.5) 10^3/uL [place] # (Auto) (0.0-1.0) 10^3/uL Eos # (Auto) (0.0-0.7) 10^3/uL Baso # (Auto) (0.0-0.1) 10^3/uL Absolute Nucleated RBC x10^3/uL Nucleated RBC % /100WBC POC Whole Bld Glucose 213 H 271 H (70 - 100) mg/dL - Current Medications Current Medications: Current Medications Generic Name Dose Route Start Last Admin Trade Name Freq PRN Reason Stop Dose Admin Acetaminophen 650 - 975 mg 01/05/19 10:59 01/05/19 17:20 Tylenol PO 975 mg Q4HR PRN Administration PAIN Acetaminophen/Codeine Phosphate 2 tab 01/05/19 13:14 01/05/19 21:30 Tylenol #3 PO 2 tab Q6HR PRN Administration PAIN Amlodipine Besylate 5 mg 01/05/19 11:46 01/06/19 08:05 Norvasc PO 5 mg DAILY LILLIAN Administration Atorvastatin Calcium 10 mg 01/05/19 21:00 01/05/19 21:30 Lipitor PO 10 mg QPM LILLIAN Administration Famotidine 20 mg 01/05/19 21:00 01/06/19 08:05 Pepcid PO 20 mg BID LILLIAN Administration Fentanyl 25 mcg 01/05/19 17:56 01/06/19 10:10 Fentanyl IVP 25 mcg Q2HR PRN Administration PAIN Gabapentin 1,500 mg 01/05/19 12:00 01/06/19 08:05 Neurontin PO 1,500 mg DAILY LILLIAN Administration Clindamycin Phosphate 50 mls @ 50 mls/hr 01/05/19 14:00 01/06/19 11:52 Cleocin 900 Mg/50 Ml IV 50 mls/hr Q6HR LILLIAN Administration Sodium Chloride 500 mls @ 0 mls/hr 01/05/19 15:55 01/05/19 17:21 Normal Saline 0.9% IV 20 mls/hr Q24H PRN Administration TKO RATE TKO Insulin Aspart 1 - 5 unit 01/06/19 12:00 01/06/19 11:53 Novolog SUBQ 3 unit 0800,1200,1700,2100 LILLIAN Administration Protocol Insulin Glargine 30 unit 01/05/19 13:13 01/06/19 08:01 Lantus Solostar SUBQ 30 unit DAILY LILLIAN Administration Multivitamins/Minerals 1 tab 01/05/19 15:00 01/06/19 08:04 Theragran M PO 1 tab DAILYWM LILLIAN Administration Nicotine 1 patch 01/05/19 12:00 01/06/19 08:05 Nicoderm TOP 1 patch DAILY LILLIAN Administration Oxycodone HCl 5 mg 01/05/19 10:59 01/06/19 11:55 Roxicodone PO 5 mg Q4HR PRN Administration PAIN Sodium Chloride 10 ml 01/05/19 17:00 01/06/19 05:22 Normal Saline Flush 0.9% IVP 10 ml 0100,0900,1700 LILLIAN Administration Sodium Chloride 10 ml 01/05/19 10:59 01/06/19 10:10 Normal Saline Flush 0.9% IVP 10 ml PRN PRN Administration NEEDED PER PROVIDER ORDERS Zolpidem Tartrate 5 mg 01/05/19 17:54 01/06/19 00:32 Ambien PO 5 mg QPM PRN Administration Insomnia - Physical Exam Wound/Incisions: positive: Drainage General Appearance: positive: No acute distress Extremities: positive: Joint swelling Neurologic/Psychiatric: positive: Oriented x3, CN's nml (2-12), Motor nml Impression/Plan - Problem List Problem List: POD #1: Pain as expected. Activity can increase but no weight bearing on LLE.
[2019-01-06] MEDS: cefTRIAXone 2 GM in SODIUM CHLORIDE 0.9% MINIBAG 100 ML IV SCH (13:57)
[2019-01-06] MEDS ORDERED: GADOBUTROL 10 MMOL/10 ML VIAL ONE (15:16)
[2019-01-06] MEDS ORDERED: GADOBUTROL 10 MMOL/10 ML VIAL IVP ONE (16:03)
--- NOTE | 2019-01-06 16:45 | MRI Report ---
Reason: eval for osteo. has chronic diabetic foot ulcer Procedure Date: 01/06/2019 Accession Number: [id number] / [id number] Procedure: MRI - Foot LT W/WO CPT Code: FULL RESULT: EXAM: LEFT FOREFOOT MRI WITHOUT AND WITH CONTRAST EXAM DATE: 01/06/2019 03:06 PM. CLINICAL HISTORY: Evaluate for osteoarthropathy. Has chronic diabetic foot ulcer. COMPARISON: FOOT LT W/WO 05/01/2017 4:16 PM. TECHNIQUE: Multiplanar, multisequence T1-weighted and fluid-sensitive sequences of the forefoot before and after administration of intravenous contrast. IV contrast: 9 mL of Gadavist. Other: None. FINDINGS: Bones: There is a healed fracture of the first metatarsal. The second digit has been amputated. There is edema in the head of the third metatarsal with flattening of the articular surface, suggestive of prior Freiberg's infraction. The fifth digit and metatarsal head have been amputated. Joints: See below. Articular Cartilage: There is moderate osteoarthritis of the first metatarsal and metatarsal sesamoid joints. Ligaments: The visualized collateral ligaments are intact. Tendons: The flexor and extensor tendons are unremarkable. Musculature: Fatty atrophy of the intrinsic muscles of the foot. Other: There is a focal defect in the soft tissues of the plantar aspect of the foot adjacent to the amputated second metatarsal head. There is edema and nonenhancing tissue extending from the skin ulcer to the head of the second metatarsal, which may indicate a surgical defect or necrosis. IMPRESSION: 1. Surgical defect or necrotic tissue extending from the skin surface to the second metatarsal head. The second digit has been amputated. No abscess. No osteomyelitis. 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 3. 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 4. Denervation atrophy of the intrinsic muscles of the foot. RADIA MUSCULOSKELETAL RADIOLOGY SECTION
[2019-01-06] MEDS: INSULIN ASPART 300 UNIT/3 ML PEN SUBQ SCH ×2 (17:17→20:17)
[2019-01-06] MEDS: ATORVASTATIN 10 MG TABLET PO SCH (20:17)
--- NOTE | 2019-01-06 20:51 | Ultrasound Report ---
Reason: eval for ischemia, gets chronic foot ulcers Procedure Date: 01/06/2019 Accession Number: [id number] / [id number] Procedure: US - Duplex Lwr Ext Arterial Bilat CPT Code: FULL RESULT: EXAM: Bilateral Lower Extremity Arterial Doppler Ultrasound EXAM DATE: 01/06/2019 04:18 PM. CLINICAL HISTORY: Evaluate for ischemia, gets chronic foot ulcers. Hypertension, history of smoking. Diabetes. Coronary artery and peripheral vascular disease. COMPARISON: None. TECHNIQUE: Real-time sonographic vascular imaging was performed by the director game, utilizing color-flow, Doppler flow, and spectral analysis. Multiple financial sales representative static images were saved for review. FINDINGS: RIGHT LEG: PATIENT CARE SECRETARY: PSV 97.6 cm/sec. Biphasic waveform. PSFA: PSV 97.6 cm/sec. Triphasic waveform. MSFA: PSV 63.1 cm/sec. Triphasic waveform. DSFA: PSV 90.1 cm/sec. Triphasic waveform. PFA: PSV 59.3 cm/sec. Biphasic waveform. POP: PSV 69.5 cm/sec. Triphasic waveform. CAMILLE: PSV 97.6 cm/sec. Triphasic waveform. COUNTER DISH CARRIER: PSV 101.6 cm/sec. Monophasic/biphasic Waveform. PER: PSV 72.5 cm/sec. Triphasic waveform. DPA: PSV 110.2 cm/sec. Monophasic/biphasic waveform. LEFT LEG: PATIENT CARE SECRETARY: PSV 101.4 cm/sec. Triphasic waveform. PSFA: PSV 116.1 cm/sec. Triphasic waveform. MSFA: PSV 87.9 cm/sec. Triphasic waveform. DSFA: PSV 140 cm/sec. Triphasic waveform. PFA: PSV 98.1 cm/sec. Biphasic waveform. POP: PSV 99.8 cm/sec. Triphasic waveform. [place]: PSV 95.5 cm/sec. Monophasic/biphasic waveform. COUNTER DISH CARRIER: PSV 86 cm/sec. Monophasic/biphasic waveform. PER: PSV 88.6 cm/sec. Monophasic/biphasic waveform. DPA: PSV 110.6 cm/sec. Monophasic/biphasic waveform. IMPRESSION: No evidence for hemodynamically significant stenosis or occlusion. See above. RADIA
[2019-01-06] MEDS: ACETAMINOPHEN/CODEINE 300 MG/30 MG TABLET PO PRN (23:50)
[2019-01-07] MEDS: SODIUM CHLORIDE FLUSH 0.9% 10 ML SYRINGE IVP SCH ×4 (05:25→23:57)
[2019-01-07] MEDS: fentaNYL 100 MCG/2 ML VIAL IVP PRN ×4 (05:25→20:21)
[2019-01-07 06:26] LABS: BASOPHILS # (AUTO) 0.1 10^3/uL (0.0-0.1); BASOPHILS % (AUTO) 1.3 %; EOSINOPHILS # (AUTO) 0.2 10^3/uL (0.0-0.7); EOSINOPHILS % (AUTO) 3.1 %; HGB - HEMOGLOBIN 14.7 g/dL (14.0-18.0); LYMPHOCYTES # (AUTO) 1.5 10^3/uL (1.5-3.5); LYMPHOCYTES % (AUTO) 20.6 %; MEAN CORPUSCULAR HEMOGLOBIN 32.7 pg (27.0-31.0); MEAN CORPUSCULAR HGB CONC 34.9 g/dL (32.0-36.0); MEAN CORPUSCULAR VOLUME 93.6 fL (80.0-94.0); MEAN PLATELET VOLUME 8.8 fL (7.4-11.4); MONOCYTES # (AUTO) 1.1 10^3/uL (0.0-1.0); MONOCYTES % (AUTO) 14.4 %; NEUTROPHILS # (AUTO) 4.5 10^3/uL (1.5-6.6); NEUTROPHILS % (AUTO) 60.6 %; PLT - PLATELET COUNT 209 10^3/uL (130-450); RED BLOOD COUNT 4.51 10^6/uL (4.70-6.10); RED CELL DISTRIBUTION WIDTH 13.3 % (12.0-15.0); WHITE BLOOD COUNT 7.4 x10^3/uL (4.8-10.8)
[2019-01-07] MEDS: INSULIN ASPART 300 UNIT/3 ML PEN SUBQ SCH ×5 (07:25→20:19)
[2019-01-07] MEDS: GABAPENTIN 300 MG CAPSULE PO SCH (08:04)
[2019-01-07] MEDS: ATORVASTATIN 10 MG TABLET PO SCH (08:05)
[2019-01-07] MEDS: oxyCODONE 5 MG TABLET PO PRN ×2 (08:05→17:05)
[2019-01-07] MEDS: FAMOTIDINE 20 MG TABLET PO SCH ×2 (08:05→20:20)
[2019-01-07] MEDS: amLODIPine 5 MG TABLET PO SCH (08:05)
[2019-01-07] MEDS: NICOTINE 14 MG PATCH TOP SCH (08:06)
[2019-01-07] MEDS: INSULIN GLARGINE 300 UNIT/3 ML PEN SUBQ SCH (08:15)
[2019-01-07] MEDS: cefTRIAXone 2 GM in SODIUM CHLORIDE 0.9% MINIBAG 100 ML IV SCH (09:24)
[2019-01-07] MEDS: MULTIVITAMIN W/MINERALS TABLET PO SCH (09:26)
[2019-01-07] MEDS: DOCUSATE SODIUM 250 MG CAPSULE PO SCH (09:26)
[2019-01-07] MEDS: SODIUM CHLORIDE FLUSH 0.9% 10 ML SYRINGE IVP PRN (10:07)
[2019-01-07] MEDS: POLYETHYLENE GLYCOL 3350 17 GM PACKET PO SCH (10:40)
--- NOTE | 2019-01-07 14:44 | PROVIDER PROGRESS NOTE ---
Subjective - General Admit Date: 01/05/19 Procedure Date: 01/05/19 Post Op Days: 2 Procedure Performed: Debridement of diabetic ulcer left foot and debridement of 2nd Metatarsal - Review of Systems Wound/Incisions: positive: Healing well General: positive: Other (some foot pain) Musculoskeletal: positive: Joint pain Objective - Patient Data Reviewed Vital Signs: Yes Vital Signs: Vital Signs x48h Temp Pulse Resp BP Pulse Ox 01/07/19 11:38 36.7 C 85 18 140/75 H 95 01/07/19 07:43 36.4 C L 70 18 129/73 96 Weight: Weight 01/05/19 01/06/19 01/07/19 23:59 23:59 23:59 Weight (kg) 92.4 kg 92.4 kg Intake & Output: Intake and Output Totals x24h 01/05/19 01/06/19 01/07/19 23:59 23:59 23:59 Intake Total 2050 3094.667 2740 Output Total 700 5600 450 Balance 1350 -2505.333 2290 - Lab Results Lab Results: 01/07/19 05:10 01/05/19 11:55 Other Lab Results: Lab Results x24hrs 01/07/19 01/07/19 01/07/19 Range/Units 11:33 07:39 05:10 WBC 7.4 (4.8-10.8) x10^3/uL RBC 4.51 L (4.70-6.10) 10^6/uL Hgb 14.7 (14.0-18.0) g/dL Hct 42.2 (42.0-52.0) % MCV 93.6 (80.0-94.0) fL MCH 32.7 H (27.0-31.0) pg MCHC 34.9 (32.0-36.0) g/dL RDW 13.3 (12.0-15.0) % Plt Count 209 (130-450) 10^3/uL MPV 8.8 (7.4-11.4) fL Neut # (Auto) 4.5 (1.5-6.6) 10^3/uL Lymph # (Auto) 1.5 (1.5-3.5) 10^3/uL [place] # (Auto) 1.1 H (0.0-1.0) 10^3/uL Eos # (Auto) 0.2 (0.0-0.7) 10^3/uL Baso # (Auto) 0.1 (0.0-0.1) 10^3/uL Absolute Nucleated RBC 0.00 x10^3/uL Nucleated RBC % 0.0 /100WBC POC Whole Bld Glucose 236 H 333 H (70 - 100) mg/dL 01/06/19 01/06/19 Range/Units 20:08 17:14 WBC (4.8-10.8) x10^3/uL RBC (4.70-6.10) 10^6/uL Hgb (14.0-18.0) g/dL Hct (42.0-52.0) % MCV (80.0-94.0) fL MCH (27.0-31.0) pg MCHC (32.0-36.0) g/dL RDW (12.0-15.0) % Plt Count (130-450) 10^3/uL MPV (7.4-11.4) fL Neut # (Auto) (1.5-6.6) 10^3/uL Lymph # (Auto) (1.5-3.5) 10^3/uL [place] # (Auto) (0.0-1.0) 10^3/uL Eos # (Auto) (0.0-0.7) 10^3/uL Baso # (Auto) (0.0-0.1) 10^3/uL Absolute Nucleated RBC x10^3/uL Nucleated RBC % /100WBC POC Whole Bld Glucose 246 H 268 H (70 - 100) mg/dL - Imaging Results Radiology Imaging: positive: EMP read indepedently - Current Medications Current Medications: Current Medications Generic Name Dose Route Start Last Admin Trade Name Freq PRN Reason Stop Dose Admin Acetaminophen 650 - 975 mg 01/05/19 10:59 01/05/19 17:20 Tylenol PO 975 mg Q4HR PRN Administration PAIN Acetaminophen/Codeine Phosphate 2 tab 01/05/19 13:14 01/06/19 23:50 Tylenol #3 PO 2 tab Q6HR PRN Administration PAIN Amlodipine Besylate 5 mg 01/05/19 11:46 01/07/19 08:05 Norvasc PO 5 mg DAILY LILLIAN Administration Atorvastatin Calcium 10 mg 01/05/19 21:00 01/07/19 08:05 Lipitor PO Not Given QPM LILLIAN Docusate Sodium 250 - 500 mg 01/07/19 09:00 01/07/19 09:26 Colace 250mg Capsule PO Not Given DAILY LILLIAN Famotidine 20 mg 01/05/19 21:00 01/07/19 08:05 Pepcid PO 20 mg BID LILLIAN Administration Fentanyl 25 mcg 01/05/19 17:56 01/07/19 13:23 Fentanyl IVP 25 mcg Q2HR PRN Administration PAIN Gabapentin 1,500 mg 01/05/19 12:00 01/07/19 08:04 Neurontin PO 1,500 mg DAILY LILLIAN Administration Sodium Chloride 500 mls @ 0 mls/hr 01/05/19 15:55 01/06/19 23:01 Normal Saline 0.9% IV Infused Q24H PRN Infusion TKO RATE TKO Ceftriaxone Sodium 2 gm/ 100 mls @ 200 mls/hr 01/06/19 14:00 01/07/19 10:40 Sodium Chloride IV Infused DAILY LILLIAN Infusion Insulin Aspart 1 - 9 unit 01/06/19 21:00 01/07/19 11:57 Novolog SUBQ 5 unit 0800,1200,1700,2100 LILLIAN Administration Protocol Insulin Glargine 30 unit 01/05/19 13:13 01/07/19 08:15 Lantus Solostar SUBQ 30 unit DAILY LILLIAN Administration Multivitamins/Minerals 1 tab 01/05/19 15:00 01/07/19 09:26 Theragran M PO 1 tab DAILYWM LILLIAN Administration Nicotine 1 patch 01/05/19 12:00 01/07/19 08:06 Nicoderm TOP 1 patch DAILY LILLIAN Administration Oxycodone HCl 5 mg 01/05/19 10:59 01/07/19 08:05 Roxicodone PO 5 mg Q4HR PRN Administration PAIN Polyethylene Glycol 17 gm 01/07/19 09:00 01/07/19 10:40 Miralax PO Not Given DAILY LILLIAN Sodium Chloride 10 ml 01/05/19 17:00 01/07/19 13:24 Normal Saline Flush 0.9% IVP 10 ml 0100,0900,1700 LILLIAN Administration Sodium Chloride 10 ml 01/05/19 10:59 01/07/19 10:07 Normal Saline Flush 0.9% IVP 10 ml PRN PRN Administration NEEDED PER PROVIDER ORDERS Zolpidem Tartrate 5 mg 01/05/19 17:54 01/06/19 23:35 Ambien PO 5 mg QPM PRN Administration Insomnia - Physical Exam Wound/Incisions: positive: Healing well General Appearance: positive: No acute distress Extremities: positive: Joint swelling Neurologic/Psychiatric: positive: Oriented x3, CN's nml (2-12), Motor nml Impression/Plan - Problem List Problem List: POD #2 Pt is improving and drainage is mild blood after removal of nu-gauze. Plan to begin daily dressing change. Pt is expected to do "self" dressing changes on discharge of Xeroform/4X4/kerlix, elida. He will be on Antibiotics until wound healing is complete. Est. up to 4 wks. I've asked him to remain non-weight bearing with a walker or scooter. Otherwise there will be shear stress that will disrupt the surgical area and cause breakdown/failure. He will be required to be seen in office within 5 days of discharge (Thursday 01/11) and weekly thereafter. At this point I don't think [facility] clinic will be needed, unless IV infusions are needed.
--- NOTE | 2019-01-07 14:57 | PROVIDER PROGRESS NOTE ---
Assessment/Plan - Problem List (1) Diabetic foot ulcer Assessment/Plan: I reached out to Infectious Disease specialist on-call at to discuss the gram stain and culture results and the plan for antibiotics for this man. The specialist did want an MRI, which I reported to her that we did and it showed no osteomyelitis. The ID specialist recommended 10 days of oral antibiotics, as long as the debridement procedure got all the margins of infection. Augmentin 875 mg po bid for 10 days will be prescribed at [facility], after the 3 days of iv antibiotics given here. No PICC line will be needed therefore. I told the patient all the above this afternoon. Continue pain meds as needed/Gabapentin. (2) IDDM (insulin dependent diabetes mellitus) Assessment/Plan: Glu running in 300's. Will add 5U Insulin with meals, as advised by Gilson Moreno. (3) HTN (hypertension) Qualifiers: Hypertension type: unspecified secondary hypertension Qualified Code(s): I15.9 - Secondary hypertension, unspecified; I15 - Secondary hypertension Assessment/Plan: Continue his home meds. - Current Meds Current Meds: Current Medications Generic Name Dose Route Start Last Admin Trade Name Freq PRN Reason Stop Dose Admin Acetaminophen 650 - 975 mg 01/05/19 10:59 01/05/19 17:20 Tylenol PO 975 mg Q4HR PRN Administration PAIN Acetaminophen/Codeine Phosphate 2 tab 01/05/19 13:14 01/06/19 23:50 Tylenol #3 PO 2 tab Q6HR PRN Administration PAIN Amlodipine Besylate 5 mg 01/05/19 11:46 01/07/19 08:05 Norvasc PO 5 mg DAILY LILLIAN Administration Atorvastatin Calcium 10 mg 01/05/19 21:00 01/07/19 08:05 Lipitor PO Not Given QPM LILLIAN Docusate Sodium 250 - 500 mg 01/07/19 09:00 01/07/19 09:26 Colace 250mg Capsule PO Not Given DAILY LILLIAN Famotidine 20 mg 01/05/19 21:00 01/07/19 08:05 Pepcid PO 20 mg BID LILLIAN Administration Fentanyl 25 mcg 01/05/19 17:56 01/07/19 13:23 Fentanyl IVP 25 mcg Q2HR PRN Administration PAIN Gabapentin 1,500 mg 01/05/19 12:00 01/07/19 08:04 Neurontin PO 1,500 mg DAILY LILLIAN Administration Sodium Chloride 500 mls @ 0 mls/hr 01/05/19 15:55 01/06/19 23:01 Normal Saline 0.9% IV Infused Q24H PRN Infusion TKO RATE TKO Ceftriaxone Sodium 2 gm/ 100 mls @ 200 mls/hr 01/06/19 14:00 01/07/19 10:40 Sodium Chloride IV Infused DAILY LILLIAN Infusion Insulin Aspart 1 - 9 unit 01/06/19 21:00 01/07/19 11:57 Novolog SUBQ 5 unit 0800,1200,1700,2100 LILLIAN Administration Protocol Insulin Glargine 30 unit 01/05/19 13:13 01/07/19 08:15 Lantus Solostar SUBQ 30 unit DAILY LILLIAN Administration Multivitamins/Minerals 1 tab 01/05/19 15:00 01/07/19 09:26 Theragran M PO 1 tab DAILYWM LILLIAN Administration Nicotine 1 patch 01/05/19 12:00 01/07/19 08:06 Nicoderm TOP 1 patch DAILY LILLIAN Administration Oxycodone HCl 5 mg 01/05/19 10:59 01/07/19 08:05 Roxicodone PO 5 mg Q4HR PRN Administration PAIN Polyethylene Glycol 17 gm 01/07/19 09:00 01/07/19 10:40 Miralax PO Not Given DAILY LILLIAN Sodium Chloride 10 ml 01/05/19 17:00 01/07/19 13:24 Normal Saline Flush 0.9% IVP 10 ml 0100,0900,1700 LILLIAN Administration Sodium Chloride 10 ml 01/05/19 10:59 01/07/19 10:07 Normal Saline Flush 0.9% IVP 10 ml PRN PRN Administration NEEDED PER PROVIDER ORDERS Zolpidem Tartrate 5 mg 01/05/19 17:54 01/06/19 23:35 Ambien PO 5 mg QPM PRN Administration Insomnia - Lab Result Fish Bone Diagrams: 01/07/19 05:10 01/05/19 11:55 - Additional Planning My Orders: My Active Orders 01/06/19 14:00 cefTRIAXone [Rocephin] 2 gm Sodium Chloride 0.9% Minibag [Normal Saline 0.9% Minibag] 100 ml IV DAILY 01/06/19 21:00 Insulin Aspart [NovoLOG] 1 - 9 unit SUBQ 0800,1200,1700,2100 01/07/19 09:00 Docusate Sodium 250Mg Capsule [Colace 250Mg Capsule] 250 - 500 mg PO DAILY Polyethylene Glycol 3350 [Miralax] 17 gm PO DAILY 01/07/19 17:00 Insulin Aspart [NovoLOG] 5 unit SUBQ TIDWM Saccharomyces Boulardii [Florastor] 250 mg PO BIDWM 01/08/19 05:00 CBC - COMP BLD CT W/AUTO DIFF [HEME] DAILYLAB Subjective - Subjective Patient Reports: Resting Comfortably Objective Vital Signs: Vital Signs - 24 hr 01/06/19 01/06/19 01/06/19 17:33 20:03 23:37 Temperature 36.9 C 36.9 C 36.8 C Heart Rate [ 80 85 81 Brachial] Respiratory 18 22 18 Rate Blood Pressure 148/78 H 156/77 H 119/64 [Left Brachial artery] O2 Saturation 96 95 95 01/07/19 01/07/19 07:43 11:38 Temperature 36.4 C L 36.7 C Heart Rate [ 70 85 Brachial] Respiratory 18 18 Rate Blood Pressure 129/73 140/75 H [Left Brachial artery] O2 Saturation 96 95 Oxygen O2 Source Room air I&O (Last 24 Hrs): Intake and Output Totals x24h 01/05/19 01/06/19 01/07/19 23:59 23:59 23:59 Intake Total 2050 3094.667 3240 Output Total 700 5600 450 Balance 1350 -2505.333 2790 General: Alert, Oriented x3 HEENT: Mucous membr. moist/pink Neuro: Non Focal Cardiovascular: Regular rate Respiratory: No respiratory distress Abdomen: Soft Extremities: Other (L foot bandaged.) - Results Results: Laboratory Results WBC 7.4 x10^3/uL (4.8-10.8) 01/07/19 05:10 RBC 4.51 10^6/uL (4.70-6.10) L 01/07/19 05:10 Hgb 14.7 g/dL (14.0-18.0) 01/07/19 05:10 Hct 42.2 % (42.0-52.0) 01/07/19 05:10 MCV 93.6 fL (80.0-94.0) 01/07/19 05:10 MCH 32.7 pg (27.0-31.0) H 01/07/19 05:10 MCHC 34.9 g/dL (32.0-36.0) 01/07/19 05:10 RDW 13.3 % (12.0-15.0) 01/07/19 05:10 Plt Count 209 10^3/uL (130-450) 01/07/19 05:10 MPV 8.8 fL (7.4-11.4) 01/07/19 05:10 Neut # (Auto) 4.5 10^3/uL (1.5-6.6) 01/07/19 05:10 Lymph # (Auto) 1.5 10^3/uL (1.5-3.5) 01/07/19 05:10 [place] # (Auto) 1.1 10^3/uL (0.0-1.0) H 01/07/19 05:10 Eos # (Auto) 0.2 10^3/uL (0.0-0.7) 01/07/19 05:10 Baso # (Auto) 0.1 10^3/uL (0.0-0.1) 01/07/19 05:10 Absolute Nucleated RBC 0.00 x10^3/uL 01/07/19 05:10 Nucleated RBC % 0.0 /100WBC 01/07/19 05:10 Sodium 135 mmol/L (135-145) 01/05/19 11:55 Potassium 4.6 mmol/L (3.5-5.0) 01/05/19 11:55 Chloride 101 mmol/L (101-111) 01/05/19 11:55 Carbon Dioxide 26 mmol/L (21-32) 01/05/19 11:55 Anion Gap 8.0 (6-13) 01/05/19 11:55 BUN 10 mg/dL (6-20) 01/05/19 11:55 Creatinine 0.7 mg/dL (0.6-1.2) 01/05/19 11:55 Estimated GFR (MDRD) 117 (>89) 01/05/19 11:55 Glucose 156 mg/dL (70-100) H 01/05/19 11:55 POC Whole Bld Glucose 236 mg/dL (70 - 100) H 01/07/19 11:33 Glycated Hemoglobin 10.5 % (4.6-6.2) H 01/05/19 11:55 Estim Average Glucose 255 (70-100) H 01/05/19 11:55 Calcium 8.4 mg/dL (8.5-10.3) L 01/05/19 11:55 Total Bilirubin 0.5 mg/dL (0.2-1.0) 01/05/19 11:55 AST 15 IU/L (10-42) 01/05/19 11:55 ALT 21 IU/L (10-60) 01/05/19 11:55 Alkaline Phosphatase 65 IU/L (42-121) 01/05/19 11:55 Total Protein 6.3 g/dL (6.7-8.2) L 01/05/19 11:55 Albumin 3.6 g/dL (3.2-5.5) 01/05/19 11:55 Globulin 2.7 g/dL (2.1-4.2) 01/05/19 11:55 Albumin/Globulin Ratio 1.3 (1.0-2.2) 01/05/19 11:55 - Procedures Procedures: Procedures DETACHMENT AT LEFT 2ND TOE, COMPLETE, OPEN APPROACH (03/11/16) DETACHMENT AT LEFT 5TH TOE, COMPLETE, OPEN APPROACH (04/30/17) DETACHMENT AT RIGHT 1ST TOE, HIGH, OPEN APPROACH (10/20/16) DETACHMENT AT RIGHT 5TH TOE, COMPLETE, OPEN APPROACH (06/05/18) EXCIS DEBRIDE OF WOUND, INFECT, OR BURN (02/19/15) EXCISION OF RIGHT METATARSAL, OPEN APPROACH (06/05/18) VENOUS CATHETERIZATION NEC (02/19/15)
[2019-01-07] MEDS: SACCHAROMYCES BOULARDII 250 MG CAPSULE PO SCH (17:05)
[2019-01-07] MEDS: ZOLPIDEM 5 MG TABLET PO PRN (22:47)
[2019-01-08 05:26] LABS: BASOPHILS # (AUTO) 0.1 10^3/uL (0.0-0.1); BASOPHILS % (AUTO) 1.2 %; EOSINOPHILS # (AUTO) 0.2 10^3/uL (0.0-0.7); EOSINOPHILS % (AUTO) 2.6 %; HGB - HEMOGLOBIN 15.3 g/dL (14.0-18.0); LYMPHOCYTES # (AUTO) 1.4 10^3/uL (1.5-3.5); MEAN CORPUSCULAR HEMOGLOBIN 31.5 pg (27.0-31.0); MEAN CORPUSCULAR HGB CONC 33.8 g/dL (32.0-36.0); MEAN CORPUSCULAR VOLUME 93.3 fL (80.0-94.0); MEAN PLATELET VOLUME 8.5 fL (7.4-11.4); MONOCYTES # (AUTO) 1.1 10^3/uL (0.0-1.0); MONOCYTES % (AUTO) 12.1 %; NEUTROPHILS # (AUTO) 6.2 10^3/uL (1.5-6.6); NEUTROPHILS % (AUTO) 69.1 %; PLT - PLATELET COUNT 220 10^3/uL (130-450); RED BLOOD COUNT 4.84 10^6/uL (4.70-6.10); RED CELL DISTRIBUTION WIDTH 13.3 % (12.0-15.0)
[2019-01-08] MEDS: oxyCODONE 5 MG TABLET PO PRN (06:12)
[2019-01-08] MEDS: ACETAMINOPHEN 325 MG TABLET PO PRN (06:12)
--- NOTE | 2019-01-08 07:56 | PROVIDER PROGRESS NOTE ---
Subjective - General Admit Date: 01/05/19 Procedure Date: 01/05/19 Post Op Days: 3 Procedure Performed: Debridement of diabetic ulcer left foot and debridement of 2nd Metatarsal - Review of Systems Wound/Incisions: positive: Healing well General: positive: Other (some foot pain) Musculoskeletal: positive: Joint pain Objective - Patient Data Reviewed Vital Signs: Yes Vital Signs: Vital Signs x48h Temp Pulse Resp BP Pulse Ox 01/08/19 05:00 36.2 C L 71 18 135/60 H 96 Weight: Weight 01/06/19 01/07/19 01/08/19 23:59 23:59 23:59 Weight (kg) 92.4 kg Intake & Output: Intake and Output Totals x24h 01/06/19 01/07/19 01/08/19 23:59 23:59 23:59 Intake Total 3094.667 4110 Output Total 5600 450 Balance -2505.333 3660 - Lab Results Lab Results: 01/08/19 05:10 01/05/19 11:55 Other Lab Results: Lab Results x24hrs 01/08/19 01/08/19 01/07/19 Range/Units 07:26 05:10 20:17 WBC 9.0 (4.8-10.8) x10^3/uL RBC 4.84 (4.70-6.10) 10^6/uL Hgb 15.3 (14.0-18.0) g/dL Hct 45.2 (42.0-52.0) % MCV 93.3 (80.0-94.0) fL MCH 31.5 H (27.0-31.0) pg MCHC 33.8 (32.0-36.0) g/dL RDW 13.3 (12.0-15.0) % Plt Count 220 (130-450) 10^3/uL MPV 8.5 (7.4-11.4) fL Neut # (Auto) 6.2 (1.5-6.6) 10^3/uL Lymph # (Auto) 1.4 L (1.5-3.5) 10^3/uL [place] # (Auto) 1.1 H (0.0-1.0) 10^3/uL Eos # (Auto) 0.2 (0.0-0.7) 10^3/uL Baso # (Auto) 0.1 (0.0-0.1) 10^3/uL Absolute Nucleated RBC 0.01 x10^3/uL Nucleated RBC % 0.1 /100WBC POC Whole Bld Glucose 238 H 147 H (70 - 100) mg/dL 01/07/19 01/07/19 Range/Units 16:55 11:33 WBC (4.8-10.8) x10^3/uL RBC (4.70-6.10) 10^6/uL Hgb (14.0-18.0) g/dL Hct (42.0-52.0) % MCV (80.0-94.0) fL MCH (27.0-31.0) pg MCHC (32.0-36.0) g/dL RDW (12.0-15.0) % Plt Count (130-450) 10^3/uL MPV (7.4-11.4) fL Neut # (Auto) (1.5-6.6) 10^3/uL Lymph # (Auto) (1.5-3.5) 10^3/uL [place] # (Auto) (0.0-1.0) 10^3/uL Eos # (Auto) (0.0-0.7) 10^3/uL Baso # (Auto) (0.0-0.1) 10^3/uL Absolute Nucleated RBC x10^3/uL Nucleated RBC % /100WBC POC Whole Bld Glucose 256 H 236 H (70 - 100) mg/dL - Current Medications Current Medications: Current Medications Generic Name Dose Route Start Last Admin Trade Name Freq PRN Reason Stop Dose Admin Acetaminophen 650 - 975 mg 01/05/19 10:59 01/08/19 06:12 Tylenol PO 650 mg Q4HR PRN Administration PAIN Acetaminophen/Codeine Phosphate 2 tab 01/05/19 13:14 01/06/19 23:50 Tylenol #3 PO 2 tab Q6HR PRN Administration PAIN Amlodipine Besylate 5 mg 01/05/19 11:46 01/07/19 08:05 Norvasc PO 5 mg DAILY LILLIAN Administration Atorvastatin Calcium 10 mg 01/05/19 21:00 01/07/19 08:05 Lipitor PO Not Given QPM LILLIAN Docusate Sodium 250 - 500 mg 01/07/19 09:00 01/07/19 09:26 Colace 250mg Capsule PO Not Given DAILY LILLIAN Famotidine 20 mg 01/05/19 21:00 01/07/19 20:20 Pepcid PO 20 mg BID LILLIAN Administration Fentanyl 25 mcg 01/05/19 17:56 01/07/19 20:21 Fentanyl IVP 25 mcg Q2HR PRN Administration PAIN Gabapentin 1,500 mg 01/05/19 12:00 01/07/19 08:04 Neurontin PO 1,500 mg DAILY LILLIAN Administration Sodium Chloride 500 mls @ 0 mls/hr 01/05/19 15:55 01/06/19 23:01 Normal Saline 0.9% IV Infused Q24H PRN Infusion TKO RATE TKO Ceftriaxone Sodium 2 gm/ 100 mls @ 200 mls/hr 01/06/19 14:00 01/07/19 10:40 Sodium Chloride IV Infused DAILY LILLIAN Infusion Insulin Aspart 1 - 9 unit 01/06/19 21:00 01/07/19 20:19 Novolog SUBQ 1 unit 0800,1200,1700,2100 LILLIAN Administration Protocol Insulin Aspart 5 unit 01/07/19 17:00 01/07/19 17:05 Novolog SUBQ 5 unit TIDWM [facility] Administration Protocol Insulin Glargine 30 unit 01/05/19 13:13 01/07/19 08:15 Lantus Solostar SUBQ 30 unit DAILY LILLIAN Administration Multivitamins/Minerals 1 tab 01/05/19 15:00 01/07/19 09:26 Theragran M PO 1 tab DAILYWM LILLIAN Administration Nicotine 1 patch 01/05/19 12:00 01/07/19 08:06 Nicoderm TOP 1 patch DAILY LILLIAN Administration Oxycodone HCl 5 mg 01/05/19 10:59 01/08/19 06:12 Roxicodone PO 5 mg Q4HR PRN Administration PAIN Polyethylene Glycol 17 gm 01/07/19 09:00 01/07/19 10:40 Miralax PO Not Given DAILY [facility] Saccharomyces Boulardii 250 mg 01/07/19 17:00 01/07/19 17:05 Florastor PO 250 mg BIDWM LILLIAN Administration Sodium Chloride 10 ml 01/05/19 17:00 01/07/19 23:57 Normal Saline Flush 0.9% IVP 10 ml 0100,0900,1700 LILLIAN Administration Sodium Chloride 10 ml 01/05/19 10:59 01/07/19 10:07 Normal Saline Flush 0.9% IVP 10 ml PRN PRN Administration NEEDED PER PROVIDER ORDERS Zolpidem Tartrate 5 mg 01/05/19 17:54 01/07/19 22:47 Ambien PO 5 mg QPM PRN Administration Insomnia
[2019-01-08] MEDS: INSULIN ASPART 300 UNIT/3 ML PEN SUBQ SCH ×4 (08:00→12:02)
--- NOTE | 2019-01-08 08:01 | Discharge Plan ---
Discharge Plan Disposition: Home, Self Care Condition: Stable Prescriptions: oxyCODONE [Roxicodone] 5 mg PO Q6HR PRN #10 tablet PRN Reason: Pain Amox/Clav 875/125 [Augmentin] 1 each PO BID #20 tablet Gauze Bandage [Gauze Pads] 1 each TP DAILY #1 packet Saccharomyces Boulardii [Florastor] 250 mg PO BID #20 capsule Diet: Soft Activity Restrictions: Activity as Tolerated Weight Bearing: No Weight Additional Instructions or Follow Up instructions: You were admitted for surgery and antibiotic management of your foot ulcer. Please take the Augmentin antibiotic twice a day for 10 days, and the probiotic pills as well. A prescription for pain pills was also provided. Resume your other pre-hospital medications and your diabetic diet. Redress the foot wound site daily and keep it dry. Gauze pads were prescribed. See Dr Yost in his clinic on Fri01/11/19. If you have new or worsening symptoms, call him or your PCP or come to the ER. No Smoking: If you smoke, Please STOP! Call for help. Follow-up with: Cyndy Guo ARNP [Primary Care Provider] -
[2019-01-08] MEDS: INSULIN GLARGINE 300 UNIT/3 ML PEN SUBQ SCH (08:03)
[2019-01-08] MEDS: amLODIPine 5 MG TABLET PO SCH (08:05)
[2019-01-08] MEDS: FAMOTIDINE 20 MG TABLET PO SCH (08:05)
[2019-01-08] MEDS: MULTIVITAMIN W/MINERALS TABLET PO SCH (08:05)
[2019-01-08] MEDS: GABAPENTIN 300 MG CAPSULE PO SCH (08:05)
[2019-01-08] MEDS: SACCHAROMYCES BOULARDII 250 MG CAPSULE PO SCH (08:05)
[2019-01-08] MEDS: DOCUSATE SODIUM 250 MG CAPSULE PO SCH (08:06)
[2019-01-08] MEDS: POLYETHYLENE GLYCOL 3350 17 GM PACKET PO SCH (08:06)
[2019-01-08] MEDS: NICOTINE 14 MG PATCH TOP SCH (08:10)
[2019-01-08] MEDS: SODIUM CHLORIDE FLUSH 0.9% 10 ML SYRINGE IVP SCH (08:45)
[2019-01-08] MEDS: cefTRIAXone 2 GM in SODIUM CHLORIDE 0.9% MINIBAG 100 ML IV SCH (08:46)
[2019-01-08 11:38] VITALS: BP 133/79
[2019-01-08] MEDS: ACETAMINOPHEN/CODEINE 300 MG/30 MG TABLET PO PRN (12:17)
--- NOTE | 2019-01-15 10:49 | DISCHARGE SUMMARY ---
Physician: Eric Yost MD DATE OF ADMISSION: 01/05/2019 DATE OF DISCHARGE: 01/08/2019 ADMISSION DIAGNOSIS: Left foot diabetic foot infection. PROCEDURE PERFORMED: Debridement of left foot wound including skin, subcutaneous tissue, and bone, a nd coupled with resection of the second metatarsal head. REASON FOR ADMISSION: Patient is a 53-year-old male with recurrent infections of his feet, requiring previous toe amputations, who had developed over the course of the last few months a large callus on the plantar part of his left foot beneath the second metatarsal head in a site where he has had prev ious second toe amputation. This callused area eventually broke down and developed underlying soft t issue infection and drainage. Recommendation was that the patient be admitted and undergo debridemen t of the area and resection of the metatarsal head. HOSPITAL COURSE: The patient was admitted. He underwent surgery on 01/05/2019. This was a deep anthony ridement with resection of the metatarsal head and a loose closure with drainage, placement of a smal l wick drain. The patient was placed on the hospital floor and because his diabetes control was erra tic, a hospital consult was obtained and the patient was given antibiotics prophylactically as furthe r cultures were awaited. The ultimate culture results were obtained and the patient's strep series w as treated with amoxicillin by the primary care doctors with consultation of Infectious Disease. At the time of the patient's discharge on 01/08/2019, the patient was much more comfortable and his woun d was showing uneventful healing. He had no drainage at this point. His dressing was changed prelim inary to his leaving, and he was given instructions in applying daily soft tissue dressings and retur black to the office within a few days. He was strictly instructed to stay off of his foot with nonwei ghtbearing, to keep it clean and dry, and to take his antibiotics as prescribed and pain pills if nee ded. TD: 01/15/2019 10:22
== END 2019-01-08 15:15 | disposition home or self-care (01) | DRG 989 ==
LOC: MS2 08:07
PROVIDERS: ADMIT Orthopaedic Surgery; ATTEND Internal Medicine
PROC: 0QTP0ZZ Resection of Left Metatarsal, Open Approach (ICD-10-PCS; principal; 2019-01-05 11:00)
DX: E11.621 Type 2 diabetes mellitus with foot ulcer (principal); E11.40 Type 2 diabetes mellitus with diabetic neuropathy, unspecified; F17.200 Nicotine dependence, unspecified, uncomplicated; Z79.4 Long term (current) use of insulin; I15.9 Secondary hypertension, unspecified; B95.1 Streptococcus, group B, as the cause of diseases classified elsewhere
CPT/HCPCS: 36415; 73720; 80053; 83036; 85025; 87070; 87077; 87205; 93925; 97116; 97161; A9270; A9585; J0690; J1815; J7120

== ENCOUNTER 2019-01-24 07:34 | Emergency (ER) | payer MEDICAID ==
--- NOTE | 2019-01-24 08:38 | ED Physician Documentation ---
History of Present Illness - Stated complaint Stated Complaint: L FOOT POST OP COMPLICATIONS - Chief complaint Chief Complaint: Wound - History obtained from History obtained from: Patient - History of Present Illness Timing: Today - Additonal information Additional information: 53-year-old type I diabetic male with multiple toe amputations has an active infection in his left foot and this morning he awoke with dark violaceous patches of skin on the lateral aspect of his left foot. He has had prior amputation of the fifth and the skin overlying the fourth toe and along the side of the foot has 3 spots that look like fresh pressure ulcers despite the fact the patient is not placed any pressure on the side of his foot. He is not wearing shoes and only has bandaging on his foot. He awoke to discover the spots on the side of his foot. He is not having much in the way of pain. Review of Systems Constitutional: denies: Fever, Chills, Myalgias, Fatigue Eyes: denies: Decreased vision Ears: denies: Ear pain Nose: denies: Rhinorrhea / runny nose, Congestion Throat: denies: Sore throat Cardiac: denies: Chest pain / pressure, Palpitations Respiratory: denies: Dyspnea, Cough GI: denies: Abdominal Pain, Nausea, Vomiting : denies: Dysuria, Frequency Skin: reports: Lesions. denies: Rash Musculoskeletal: denies: Neck pain, Back pain, Extremity pain Neurologic: denies: Generalized weakness, Focal weakness, Numbness PD PAST MEDICAL HISTORY - Past Medical History Cardiovascular: Hypertension, High cholesterol Respiratory: None Neuro: Peripheral neuropathy Endocrine/Autoimmune: Type 2 diabetes GI: None : None HEENT: None Psych: None Musculoskeletal: Other Derm: None - Past Surgical History Past Surgical History: Yes General: Appendectomy Ortho: Amputation - Present Medications Home Medications: Ambulatory Orders Medication Instructions Recorded Confirmed Insulin Glargine,Hum.rec.anlog 30 units SQ QPM 03/07/15 01/24/19 [Lantus Solostar] Gabapentin 1,500 - 3,000 mg PO DAILY 10/05/16 01/24/19 Atorvastatin Calcium 10 mg PO DAILY 07/31/17 01/24/19 Liraglutide [Victoza 2-Florian] 1.8 mg SUBQ DAILY 05/13/18 01/24/19 metFORMIN [Glucophage] 1,000 mg PO BID 09/29/18 01/24/19 Hydrocodone/Acetaminophen 1 tab PO Q6HR PRN 12/28/18 01/24/19 [Hydrocodone-Acetamin 10-325 mg] amLODIPine [Norvasc] 1 tab PO DAILY 12/28/18 01/24/19 Amox/Clav 875/125 [Augmentin] 1 each PO BID #20 tablet 01/08/19 01/24/19 Gauze Bandage [Gauze Pads] 1 each TP DAILY #1 packet 01/08/19 01/24/19 Clindamycin HCl [Clindamycin 300MG 300 mg PO TID 01/24/19 01/24/19 CAP] Losartan/Hydrochlorothiazide 1 tab PO DAILY 01/24/19 01/24/19 [Losartan-Hctz 100-25 mg Tab] Zolpidem Tartrate [Ambien] 10 mg PO QPM PRN 01/24/19 01/24/19 - Allergies Allergies/Adverse Reactions: Allergies Allergy/AdvReac Type Severity Reaction Status Date / Time hydromorphone [From Dilaudid] Allergy Itching Verified 01/24/19 07:56 - Social History Does the pt smoke?: No Smoking Status: Never smoker Does the pt drink ETOH?: Yes Does the pt have substance abuse?: No - Immunizations Immunizations are current?: Yes - POLST Patient has POLST: No POLST Status: Full Code PD ED PE NORMAL - Vitals Vital signs reviewed: Yes (hypertensive mild ) - General General: Alert and oriented X 3, No acute distress, Well developed/nourished - HEENT HEENT: Atraumatic, PERRL, EOMI - Neck Neck: Supple, no meningeal sign - Respiratory Respiratory: No respiratory distress - Derm Derm: Normal color, Warm and dry - Extremities Extremities: Other (There is deformity to the left foot with prior amputations of #5 and #2. There is a healing surgical stie on the plantar surface of the left foot over the area of the distal 2nd metatarsal. There is no active drainage from the area expressed but there is a central area in the wound that has delayed healing in comparison to the rest of the wound. ) - Psych Psych: Normal mood, Normal affect Results - Vitals Vitals: Vital Signs - 24 hr 01/24/19 07:52 Temperature 36.9 C Heart Rate 96 Respiratory 18 Rate Blood Pressure 136/86 H O2 Saturation 100 Oxygen O2 Source Room air - Labs Labs: Laboratory Tests 01/24/19 01/24/19 01/24/19 09:04 09:04 09:04 WBC 13.5 H RBC 5.04 Hgb 15.7 Hct 46.0 MCV 91.4 MCH 31.2 H MCHC 34.1 RDW 13.0 Plt Count 249 MPV 8.9 Neut # (Auto) 9.9 H Lymph # (Auto) 2.0 [place] # (Auto) 1.2 H Eos # (Auto) 0.4 Baso # (Auto) 0.1 Absolute Nucleated RBC 0.01 Nucleated RBC % 0.1 ESR Sodium 133 L Potassium 3.7 Chloride 97 L Carbon Dioxide 27 Anion Gap 9.0 BUN 16 Creatinine 0.7 Estimated GFR (MDRD) 117 Glucose 140 H Lactic Acid 0.9 Calcium 9.0 Total Bilirubin 0.8 AST 19 ALT 26 Alkaline Phosphatase 62 C-Reactive Protein Total Protein 7.5 Albumin 4.1 Globulin 3.4 Albumin/Globulin Ratio 1.2 Lipase 28 01/24/19 01/24/19 09:04 09:04 WBC RBC Hgb Hct MCV MCH MCHC RDW Plt Count MPV Neut # (Auto) Lymph # (Auto) [place] # (Auto) Eos # (Auto) Baso # (Auto) Absolute Nucleated RBC Nucleated RBC % ESR 4 Sodium Potassium Chloride Carbon Dioxide Anion Gap BUN Creatinine Estimated GFR (MDRD) Glucose Lactic Acid Calcium Total Bilirubin AST ALT Alkaline Phosphatase C-Reactive Protein < 1.0 Total Protein Albumin Globulin Albumin/Globulin Ratio Lipase - Rads (name of study) left foot Radiology: Prelim report reviewed (Impression: 1. Prior amputation at the level of the second metatarsal phalangeal joint. There is new possible erosive change at the head of the second metatarsal, raising possibility of osteomyelitis. 2. Increased flattening and sclerosis of the heads of the third and fourth metatarsals, suggest if of [place] infarction/avascular necrosis. 3. No acute fracture. 4. No focal soft tissue swelling appreciated no soft tissue gas.), EMP read indepedently, See rad report PD MEDICAL DECISION MAKING - ED course Complexity details: considered differential, d/w patient, d/w [employer] consultant (Gandara: recommends follow up with Dr. Jacob tomorrow ) ED course: 53-year-old diabetic male with multiple toe amputations has an evolving process on his left foot over the distal 2nd MT with potentially early osteo. His inflammatory markers are not elevated and he is afebrile. He is on antibiotic. He has new skin changes today that appear to be pressure related. He is not able to explain the findings. He is wearing an elastic holding the gauze on to the bottom of the foot and he has poor sensation in the foot. I suspect this may be the culprit. He will need follow up as planned tomorrow. He is wanting to proceed with amputation. Departure - Departure Disposition: 01 Home, Self Care Clinical Impression: Diabetic toe ulcer Qualifiers: Diabetes mellitus type: type 1 Laterality: left Non-pressure ulcer stage: limited to breakdown of skin Qualified Code(s): E10.621 - Type 1 diabetes mellitus with foot ulcer; L97.521 - Non-pressure chronic ulcer of other part of left foot limited to breakdown of skin Condition: Stable Instructions: Diabetic Foot Ulcer Dc Follow-Up: Tirso Tejada [Primary Care Provider] - Eric Yost MD [Provider Admit Priv/Credential] -
[2019-01-24 09:22] LABS: BASOPHILS # (AUTO) 0.1 10^3/uL (0.0-0.1); BASOPHILS % (AUTO) 0.4 %; EOSINOPHILS # (AUTO) 0.4 10^3/uL (0.0-0.7); HGB - HEMOGLOBIN 15.7 g/dL (14.0-18.0); LYMPHOCYTES % (AUTO) 14.7 %; MEAN CORPUSCULAR HEMOGLOBIN 31.2 pg (27.0-31.0); MEAN CORPUSCULAR HGB CONC 34.1 g/dL (32.0-36.0); MEAN CORPUSCULAR VOLUME 91.4 fL (80.0-94.0); MEAN PLATELET VOLUME 8.9 fL (7.4-11.4); MONOCYTES # (AUTO) 1.2 10^3/uL (0.0-1.0); MONOCYTES % (AUTO) 8.8 %; NEUTROPHILS # (AUTO) 9.9 10^3/uL (1.5-6.6); NEUTROPHILS % (AUTO) 73.1 %; PLT - PLATELET COUNT 249 10^3/uL (130-450); RED BLOOD COUNT 5.04 10^6/uL (4.70-6.10); WHITE BLOOD COUNT 13.5 x10^3/uL (4.8-10.8)
--- NOTE | 2019-01-24 09:22 | XRAY Report ---
Reason: new areas of skin breakdown laterally Procedure Date: 01/24/2019 Accession Number: [id number] / [id number] Procedure: XR - Foot 3 View LT CPT Code: FULL RESULT: EXAM: LEFT FOOT RADIOGRAPHY EXAM DATE: 01/24/2019 08:55 AM. CLINICAL HISTORY: New areas of skin breakdown laterally. COMPARISON: FOOT 3 VIEW LT 12/28/2018 8:16 PM. TECHNIQUE: 3 nonweightbearing views. FINDINGS: Bones: No acute fracture. There is evidence of prior amputation at the level of the distal fifth metatarsal and at the second metacarpophalangeal joint, as seen on the prior exam. There are possible erosive changes of the head of the second metatarsal, not previously seen. There is increased flattening and sclerosis at the heads of the third and fourth metatarsals. There is old healed fracture deformity or postsurgical change of the first metatarsal, as seen on the prior exam. Bones are diffusely demineralized. Joints: Normal. No subluxations. Soft Tissues: No focal soft tissue swelling appreciated. No soft tissue gas. IMPRESSION: 1. Prior amputation at the level of the second metatarsophalangeal joint. There is new possible erosive change at the head of the second metatarsal, raising the possibility of osteomyelitis. 2. Increased flattening and sclerosis at the heads of the third and fourth metatarsals, suggestive of [place] infraction/avascular necrosis. 3. No acute fracture. 4. No focal soft tissue swelling appreciated. No soft tissue gas. RADIA
[2019-01-24 09:36] LABS: ALBUMIN 4.1 g/dL (3.2-5.5); ALBUMIN/GLOBULIN RATIO 1.2 (1.0-2.2); BILIRUBIN,TOTAL 0.8 mg/dL (0.2-1.0); CREATININE 0.7 mg/dL (0.6-1.2); TOTAL PROTEIN 7.5 g/dL (6.7-8.2)
[2019-01-24 11:50] VITALS: BP 129/85
== END 2019-01-24 11:55 | disposition home or self-care (01) ==
LOC: ED 07:34
DX: E10.621 Type 1 diabetes mellitus with foot ulcer (principal); L97.521 Non-pressure chronic ulcer of other part of left foot limited to breakdown of skin; E10.42 Type 1 diabetes mellitus with diabetic polyneuropathy; I10 Essential (primary) hypertension; E78.00 Pure hypercholesterolemia, unspecified; Z89.422 Acquired absence of other left toe(s)
CPT/HCPCS: 36415; 80053; 83605; 83690; 85025; 85651; 86140; 87040; 99283

== ENCOUNTER 2019-01-29 08:00 | Outpatient (CLI) | payer MEDICAID | END 2019-01-29 23:59 | LOC: LAB.R 08:00 | PROVIDERS: ATTEND Orthopaedic Surgery | DX: E11.621 Type 2 diabetes mellitus with foot ulcer (principal) | CPT/HCPCS: 87070; 87205 ==

== ENCOUNTER 2019-08-26 18:05 | Outpatient (CLI) | payer SELFPAY | END 2019-08-26 18:06 | disposition home or self-care (01) | LOC: EMS 18:05 | PROVIDERS: ATTEND Surgery | DX: L03.115 Cellulitis of right lower limb (principal); L02.611 Cutaneous abscess of right foot; E11.65 Type 2 diabetes mellitus with hyperglycemia; E11.621 Type 2 diabetes mellitus with foot ulcer; L97.519 Non-pressure chronic ulcer of other part of right foot with unspecified severity | CPT/HCPCS: A0425; A0428 ==

== ENCOUNTER 2020-06-30 20:06 | Emergency (ER) | payer OTHER, MEDICAID ==
[2020-06-30 20:53] LABS: BASOPHILS # (AUTO) 0.1 10^3/uL (0.0-0.1); BASOPHILS % (AUTO) 0.7 %; EOSINOPHILS # (AUTO) 0.3 10^3/uL (0.0-0.7); EOSINOPHILS % (AUTO) 3.2 %; HGB - HEMOGLOBIN 15.3 g/dL (14.0-18.0); LYMPHOCYTES # (AUTO) 2.3 10^3/uL (1.5-3.5); MEAN CORPUSCULAR HEMOGLOBIN 33.8 pg (27.0-31.0); MEAN CORPUSCULAR HGB CONC 35.3 g/dL (32.0-36.0); MEAN PLATELET VOLUME 10.1 fL (7.4-11.4); MONOCYTES # (AUTO) 0.9 10^3/uL (0.0-1.0); MONOCYTES % (AUTO) 9.4 %; NEUTROPHILS # (AUTO) 5.8 10^3/uL (1.5-6.6); NEUTROPHILS % (AUTO) 62.3 %; PLT - PLATELET COUNT 268 10^3/uL (130-450); RED BLOOD COUNT 4.52 10^6/uL (4.70-6.10); RED CELL DISTRIBUTION WIDTH 12.3 % (12.0-15.0); WHITE BLOOD COUNT 9.4 x10^3/uL (4.8-10.8)
--- NOTE | 2020-06-30 21:05 | XRAY Report ---
PROCEDURE: Tib/Fib LT INDICATIONS: leg redness, h/o osteomyelitis in the other leg. TECHNIQUE: AP and lateral views of the tibia and fibula were acquired. COMPARISON: None. FINDINGS: Bones: Acute fractures or dislocations. No suspicious bony lesions. No focal cortical destruction i s seen to suggest osteomyelitis. Soft tissues: No suspicious soft tissue calcifications or masses. IMPRESSION: No acute osseous abnormality. If symptoms persist with conservative management, CT or MRI may be obta ined for further evaluation. Reviewed by: Gavin Verdugo MD on 06/30/2020 9:04 PM PDT Approved by: Gavin Verdugo MD on 06/30/2020 9:04 PM PDT Station ID: [id number]
[2020-06-30 21:10] LABS: PT - PROTHROMBIN TIME 11.2 secs (9.9-12.6)
[2020-06-30 21:12] LABS: ALBUMIN 4.3 g/dL (3.2-5.5); ALBUMIN/GLOBULIN RATIO 1.4 (1.0-2.2); BILIRUBIN,TOTAL 0.5 mg/dL (0.2-1.0); CREATININE 0.8 mg/dL (0.6-1.2); CRP - C-REACTIVE PROTEIN 1.2 mg/dL (0-1.0); TOTAL PROTEIN 7.4 g/dL (6.7-8.2)
[2020-06-30 21:17] LABS: PARTIAL THROMBOPLASTIN TIME 31.3 secs (24.9-33.3)
--- NOTE | 2020-06-30 21:24 | ED Physician Documentation ---
History of Present Illness - Stated complaint Stated Complaint: LEG REDNESS - Chief complaint Chief Complaint: General - History obtained from History obtained from: Patient - History of Present Illness Timing: How many days ago (3) Pain level max: 0 Pain level now: 0 - Additonal information Additional information: mild redness to the L leg. noticed it a few days ago. Right foot was status post a partial amputation approximately 2 months ago. 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 Patient did not want to drive to [place] so came here. No fevers. No chills. Review of Systems Constitutional: denies: Fever, Chills Ears: denies: Ear pain Nose: denies: Rhinorrhea / runny nose, Congestion Throat: denies: Sore throat Cardiac: denies: Chest pain / pressure PD PAST MEDICAL HISTORY - Past Medical History Cardiovascular: Hypertension, High cholesterol Respiratory: None Neuro: Peripheral neuropathy Endocrine/Autoimmune: Type 2 diabetes GI: None : None HEENT: None Psych: None Musculoskeletal: Other Derm: None - Past Surgical History Past Surgical History: Yes General: Appendectomy Ortho: Amputation - Present Medications Home Medications: Ambulatory Orders Medication Instructions Recorded Confirmed Insulin Glargine,Hum.rec.anlog 30 units SQ QPM 03/07/15 05/08/20 [Lantus Solostar] Gabapentin 300 - 600 mg PO TID 10/05/16 05/08/20 Atorvastatin Calcium 10 mg PO DAILY 07/31/17 05/08/20 Liraglutide [Victoza 2-Florian] 1.8 mg SUBQ DAILY 05/13/18 05/08/20 metFORMIN [Glucophage] 1,000 mg PO BID 09/29/18 05/08/20 amLODIPine [Norvasc] 5 mg PO DAILY 12/28/18 05/08/20 Losartan/Hydrochlorothiazide 1 tab PO DAILY 01/24/19 05/08/20 [Losartan-Hctz 100-25 mg Tab] Insulin Aspart [NovoLOG] 1 - 12 units SQ TIDWM 05/08/20 05/08/20 Clindamycin HCl [Clindamycin 300MG 300 mg PO Q6H #28 capsule 06/30/20 CAP] - Allergies Allergies/Adverse Reactions: Allergies Allergy/AdvReac Type Severity Reaction Status Date / Time hydromorphone [From Simonid] Allergy Itching Verified 08/26/19 07:14 - Social History Does the pt smoke?: No Smoking Status: Never smoker Does the pt drink ETOH?: Yes Does the pt have substance abuse?: No - Immunizations Immunizations are current?: Yes - POLST Patient has POLST: No POLST Status: Full Code PD ED PE NORMAL - Vitals Vital signs reviewed: Yes - General General: Alert and oriented X 3, No acute distress - HEENT HEENT: Moist mucous membranes - Neck Neck: Supple, no meningeal sign - Cardiac Cardiac: RRR - Respiratory Respiratory: No respiratory distress, Clear bilaterally - Abdomen Abdomen: Soft, Non tender, Non distended - Extremities Extremities: Other (L leg - Mild erythema and warmth to the medial aspect of the right calf. No swelling. No significant tenderness. No cord. Neurovascular intact. No bony tenderness) - Neuro Neuro: Alert and oriented X 3 - Psych Psych: Normal mood, Normal affect Results - Vitals Vitals: Vital Signs - 24 hr 06/30/20 06/30/20 20:08 21:31 Temperature 37 C Heart Rate 89 78 Respiratory 18 16 Rate Blood Pressure 171/85 H 170/90 H O2 Saturation 99 99 Oxygen O2 Source Room air - Labs Labs: Laboratory Tests 06/30/20 06/30/20 06/30/20 20:35 20:35 20:35 WBC 9.4 RBC 4.52 L Hgb 15.3 Hct 43.4 MCV 96.0 H MCH 33.8 H MCHC 35.3 RDW 12.3 Plt Count 268 MPV 10.1 Neut # (Auto) 5.8 Lymph # (Auto) 2.3 [place] # (Auto) 0.9 Eos # (Auto) 0.3 Baso # (Auto) 0.1 Absolute Nucleated RBC 0.00 Nucleated RBC % 0.0 ESR 4 PT INR APTT Sodium 139 Potassium 3.7 Chloride 104 Carbon Dioxide 23 Anion Gap 12.0 BUN 15 Creatinine 0.8 Estimated GFR (MDRD) 100 Glucose 167 H Calcium 9.0 Total Bilirubin 0.5 AST 16 ALT 18 Alkaline Phosphatase 93 C-Reactive Protein 1.2 H Total Protein 7.4 Albumin 4.3 Globulin 3.1 Albumin/Globulin Ratio 1.4 Lipase 48 06/30/20 20:35 WBC RBC Hgb Hct MCV MCH MCHC RDW Plt Count MPV Neut # (Auto) Lymph # (Auto) [place] # (Auto) Eos # (Auto) Baso # (Auto) Absolute Nucleated RBC Nucleated RBC % ESR PT 11.2 INR 1.0 APTT 31.3 Sodium Potassium Chloride Carbon Dioxide Anion Gap BUN Creatinine Estimated GFR (MDRD) Glucose Calcium Total Bilirubin AST ALT Alkaline Phosphatase C-Reactive Protein Total Protein Albumin Globulin Albumin/Globulin Ratio Lipase - Rads (name of study) Left tib-fib x-ray Radiology: Prelim report reviewed, EMP read contemporaneously, See rad report (No acute abnormality) PD MEDICAL DECISION MAKING - ED course Complexity details: reviewed results, re-evaluated patient, considered differential, d/w patient ED course: Mild cellulitis of the LLE. No signs of osteomyelitis. Pt is well appearing, non-toxic, afebrile. Will start on clindamycin and have him follow up with his doctor for further care. Patient counseled regarding signs and symptoms for which I believe and urgent re-evaluation would be necessary. Patient with good understanding of and agreement to plan and is comfortable going home at this time This document was made in part using voice recognition software. While efforts are made to proofread this document, sound alike and grammatical errors may occur. Departure - Departure Disposition: 01 Home, Self Care Clinical Impression: Cellulitis Qualifiers: Site of cellulitis: extremity Site of cellulitis of extremity: lower extremity Laterality: left Qualified Code(s): L03.116 - Cellulitis of left lower limb Condition: Good Instructions: ED Infec Skin Cellulitis Follow-Up: Tirso Tejada [Primary Care Provider] - Within 1 week Prescriptions: Clindamycin HCl [Clindamycin 300MG CAP] 300 mg PO Q6H #28 capsule Comments: There is no evidence of osteomyelitis today. Take all antibiotics until gone. Follow-up with your doctor within 3 to 4 days for a wound check. Return if you worsen. Discharge Date/Time: 06/30/20 21:31
[2020-06-30] MEDS ORDERED: CLINDAMYCIN 150 MG CAPSULE PO STA (21:25)
[2020-06-30 21:32] VITALS: BP 170/90
== END 2020-06-30 21:31 | disposition home or self-care (01) ==
LOC: ED 20:06
DX: L03.116 Cellulitis of left lower limb (principal); Z89.421 Acquired absence of other right toe(s); I10 Essential (primary) hypertension; E11.42 Type 2 diabetes mellitus with diabetic polyneuropathy; Z79.4 Long term (current) use of insulin; Z79.84 Long term (current) use of oral hypoglycemic drugs
CPT/HCPCS: 36415; 73590; 80053; 83690; 85025; 85610; 85651; 85730; 86140; 99284; A9270; 80048

== ENCOUNTER 2020-09-22 09:28 | Outpatient (CLI) | payer OTHER, MEDICAID ==
--- NOTE | 2020-09-22 13:42 | XRAY Report ---
PROCEDURE: Foot 3 View BILAT INDICATIONS: POST OP ASSESSMENT HX OF ULCERS TECHNIQUE: The views of the foot were acquired. COMPARISON: MR foot 05/08/2020, x-ray foot 05/07/2020, 01/24/2019 FINDINGS: Bones: No fractures or dislocations. The right foot demonstrates resection distal to the midmetatars als of digits 1 through 5. There are no areas of osseous associated erosion. The left foot demonstrat es resection distal to the distal metatarsal of the digits 2 and 5. Interval curvilinear calcificatio n is present medially distal to the resection site on digit 2 as well as circular type lucency at the distal aspect of the metatarsal. Soft tissues: No tibiotalar joint effusion. Achilles tendon appears normal. IMPRESSION: 1. Right foot demonstrates postoperative changes without visualized erosions to suggest osteomyelitis . 2. Left foot demonstrates circular lucency within the distal aspect of the second metatarsal. Focus o f infection such as osteomyelitis within this region cannot be excluded. If clinically indicated, MRI 40 is recommended for further evaluation Reviewed by: Tootie Alejandra MD on 09/22/2020 1:40 PM PST Approved by: Tootie Alejandra MD on 09/22/2020 1:40 PM PST Station ID: [id number]
== END 2020-09-22 09:29 | disposition home or self-care (01) ==
LOC: DI 09:28
PROVIDERS: ATTEND Podiatrist
DX: Z09 Encounter for follow-up examination after completed treatment for conditions other than malignant neoplasm (principal); Z87.2 Personal history of diseases of the skin and subcutaneous tissue; R93.6 Abnormal findings on diagnostic imaging of limbs

== ENCOUNTER 2020-10-15 10:30 | Emergency (ER) | payer OTHER, MEDICARE ==
[2020-10-15 11:25] LABS: BASOPHILS # (AUTO) 0.1 10^3/uL (0.0-0.1); BASOPHILS % (AUTO) 0.9 %; EOSINOPHILS # (AUTO) 0.2 10^3/uL (0.0-0.7); EOSINOPHILS % (AUTO) 2.6 %; HGB - HEMOGLOBIN 15.9 g/dL (14.0-18.0); LYMPHOCYTES # (AUTO) 1.4 10^3/uL (1.5-3.5); LYMPHOCYTES % (AUTO) 16.2 %; MEAN CORPUSCULAR HEMOGLOBIN 33.8 pg (27.0-31.0); MEAN CORPUSCULAR HGB CONC 35.7 g/dL (32.0-36.0); MEAN CORPUSCULAR VOLUME 94.5 fL (80.0-94.0); MEAN PLATELET VOLUME 9.7 fL (7.4-11.4); MONOCYTES # (AUTO) 0.8 10^3/uL (0.0-1.0); MONOCYTES % (AUTO) 9.4 %; NEUTROPHILS % (AUTO) 70.5 %; PLT - PLATELET COUNT 234 10^3/uL (130-450); RED BLOOD COUNT 4.71 10^6/uL (4.70-6.10); RED CELL DISTRIBUTION WIDTH 11.6 % (12.0-15.0); WHITE BLOOD COUNT 8.5 x10^3/uL (4.8-10.8)
[2020-10-15 11:39] LABS: ALBUMIN 4.3 g/dL (3.2-5.5); ALBUMIN/GLOBULIN RATIO 1.4 (1.0-2.2); BILIRUBIN,TOTAL 0.5 mg/dL (0.2-1.0); CALCIUM 9.5 mg/dL (8.5-10.3); CREATININE 0.7 mg/dL (0.6-1.2); TOTAL PROTEIN 7.4 g/dL (6.7-8.2)
--- NOTE | 2020-10-15 11:49 | XRAY Report ---
PROCEDURE: Chest 1 View X-Ray INDICATIONS: Chest pain TECHNIQUE: One view of the chest was acquired. COMPARISON: Chest x-ray 2 views, 12/28/2018. FINDINGS: Surgical changes and devices: None. Lungs and pleura: No pleural effusions or pneumothorax. Lungs are clear. Mediastinum: Mediastinal contours appear normal. Heart size is normal. Bones and chest wall: No suspicious bony lesions. Overlying soft tissues appear unremarkable. IMPRESSION: No acute cardiopulmonary disease. Reviewed by: Laly Shipley MD on 10/15/2020 11:47 AM PST Approved by: Laly Shipley MD on 10/15/2020 11:47 AM PST Station ID: [id number]
[2020-10-15 13:24] VITALS: BP 136/100
--- NOTE | 2020-10-15 13:31 | ED Physician Documentation ---
History of Present Illness - Stated complaint Stated Complaint: HIGH BP - Chief complaint Chief Complaint: Cardiac - Additonal information Additional information: 35-year-old man with past medical history of diabetes, high blood pressure, hy perlipidemia presents with high blood pressure for the past 2 to 3 weeks associated with palpitations. Patient states that his primary increased his amlodipine from 2.5 to 5 mg on Friday but he has still had high blood pressure since then. Denies chest pain shortness of breath nausea vomiting fever abdominal pain back pain. Does endorse some mild dizziness intermittently. Review of Systems Ten Systems: 10 systems reviewed and negative Constitutional: denies: Fever, Chills Cardiac: reports: Palpitations PD PAST MEDICAL HISTORY - Past Medical History Past Medical History: Yes Cardiovascular: Hypertension, High cholesterol Respiratory: None Neuro: Peripheral neuropathy Endocrine/Autoimmune: Type 2 diabetes GI: None : None HEENT: None Psych: None Musculoskeletal: Other Derm: None - Past Surgical History Past Surgical History: Yes General: Appendectomy Ortho: Amputation - Present Medications Home Medications: Ambulatory Orders Medication Instructions Recorded Confirmed Insulin Glargine,Hum.rec.anlog 30 units SQ QPM 03/07/15 05/08/20 [Lantus Solostar] Gabapentin 300 - 600 mg PO TID 10/05/16 05/08/20 Atorvastatin Calcium 10 mg PO DAILY 07/31/17 05/08/20 Liraglutide [Victoza 2-Florian] 1.8 mg SUBQ DAILY 05/13/18 05/08/20 metFORMIN [Glucophage] 1,000 mg PO BID 09/29/18 05/08/20 amLODIPine [Norvasc] 5 mg PO DAILY 12/28/18 05/08/20 Losartan/Hydrochlorothiazide 1 tab PO DAILY 01/24/19 05/08/20 [Losartan-Hctz 100-25 mg Tab] Insulin Aspart [NovoLOG] 1 - 12 units SQ TIDWM 05/08/20 05/08/20 Clindamycin HCl [Clindamycin 300MG 300 mg PO Q6H #28 capsule 06/30/20 CAP] - Allergies Allergies/Adverse Reactions: Allergies Allergy/AdvReac Type Severity Reaction Status Date / Time hydromorphone [From Dilaudid] Allergy Itching Verified 10/15/20 10:57 - Social History Does the pt smoke?: No Smoking Status: Never smoker Does the pt drink ETOH?: Yes Does the pt have substance abuse?: No - Immunizations Immunizations are current?: Yes - POLST Patient has POLST: No POLST Status: Full Code PD ED PE NORMAL - Vitals Vital signs reviewed: Yes - General General: Alert and oriented X 3 - HEENT HEENT: Atraumatic, PERRL, EOMI - Neck Neck: Supple, no meningeal sign - Cardiac Cardiac: RRR - Respiratory Respiratory: No respiratory distress, Clear bilaterally - Abdomen Abdomen: Non tender, Non distended - Male Male : Deferred - Rectal Rectal: Deferred - Back Back: No spinal TTP - Derm Derm: Normal color - Extremities Extremities: No deformity - Neuro Neuro: Alert and oriented X 3, sports agent 2-12 intact, No motor deficit, No sensory deficit, Normal speech - Psych Psych: Normal mood, Normal affect Results - Vitals Vitals: Vital Signs - 24 hr 10/15/20 10/15/20 10/15/20 10:53 11:28 13:23 Temperature 36.5 C Heart Rate 79 74 67 Respiratory 20 13 14 Rate Blood Pressure 168/79 H 162/75 H 136/100 H O2 Saturation 99 98 98 Oxygen O2 Source Room air - EKG (time done) 1101 Rate: Rate (enter#) (78) Rhythm: NSR Compare to prior EKG: Unchanged from prior EKG (02/19/2016) - Labs Labs: Laboratory Tests 10/15/20 10/15/20 10/15/20 11:19 11:19 11:19 WBC 8.5 RBC 4.71 Hgb 15.9 Hct 44.5 MCV 94.5 H MCH 33.8 H MCHC 35.7 RDW 11.6 L Plt Count 234 MPV 9.7 Neut # (Auto) 6.0 Lymph # (Auto) 1.4 L [place] # (Auto) 0.8 Eos # (Auto) 0.2 Baso # (Auto) 0.1 Absolute Nucleated RBC 0.00 Nucleated RBC % 0.0 Sodium 135 Potassium 4.6 Chloride 98 L Carbon Dioxide 25 Anion Gap 12.0 BUN 21 H Creatinine 0.7 Estimated GFR (MDRD) 116 Glucose 228 H Calcium 9.5 Total Bilirubin 0.5 AST 17 ALT 20 Alkaline Phosphatase 68 Troponin I High Sens 4.0 Total Protein 7.4 Albumin 4.3 Globulin 3.1 Albumin/Globulin Ratio 1.4 Lipase 27 PD MEDICAL DECISION MAKING - ED course Complexity details: reviewed results, d/w patient ED course: 55-year-old man with pmh htn presents with persistent asymptomatic hypertension, found to have stable labs xr, and ekg unchanged from previous. d/w patient need to f/u with pmd. return precautions given. Departure - Departure Disposition: 01 Home, Self Care Clinical Impression: Hypertension Condition: Good Instructions: Hypertension Control Comments: You have been seen in the emergency department for high blood pressure. Your screening lab work, EKG, and chest x-ray did not show any concerning findings. You did have some mild increased blood sugar. Follow-up with your primary doctor. You may need to increase your blood pressure medicine again. Return to the ED for any new or worsening symptoms. Discharge Date/Time: 10/15/20 13:36
== END 2020-10-15 13:36 | disposition home or self-care (01) ==
LOC: ED 10:30
DX: I10 Essential (primary) hypertension (principal); E11.42 Type 2 diabetes mellitus with diabetic polyneuropathy; Z79.4 Long term (current) use of insulin
CPT/HCPCS: 36415; 80053; 83690; 84484; 85025; 93005; 99284

== ENCOUNTER 2020-11-09 13:12 | Inpatient (IN) | payer MEDICARE, OTHER, MEDICAID ==
--- NOTE | 2020-11-09 13:32 | ED Physician Documentation ---
PD HPI LOWER EXT INJURY - Stated complaint Stated Complaint: left foot red & px - Chief complaint Chief Complaint: Wound - History obtained from History obtained from: Patient - Additional information Additional information: 85yo gentleman with longstanding diabetes and issues with recurrent infections of both feet. Has had multiple amputations. For the last week he has had a wound that is painful and growing on the dorsum of the left fourth toe noting that he is missing the second and fifth toes on that foot. No fever. Review of Systems Ten Systems: 10 systems reviewed and negative Constitutional: denies: Fever, Chills Cardiac: reports: Reviewed and negative Respiratory: reports: Reviewed and negative GI: reports: Reviewed and negative PD PAST MEDICAL HISTORY - Past Medical History Cardiovascular: Hypertension, High cholesterol Respiratory: None Neuro: Peripheral neuropathy Endocrine/Autoimmune: Type 2 diabetes GI: None : None HEENT: None Psych: None Musculoskeletal: Other Derm: None - Past Surgical History Past Surgical History: Yes General: Appendectomy Ortho: Amputation - Present Medications Home Medications: Ambulatory Orders Medication Instructions Recorded Confirmed Insulin Glargine,Hum.rec.anlog 30 units SQ QPM 03/07/15 11/09/20 [Lantus Solostar] Gabapentin 300 - 600 mg PO TID 10/05/16 11/09/20 Atorvastatin Calcium 10 mg PO DAILY 07/31/17 11/09/20 Liraglutide [Victoza 2-Florian] 1.8 mg SUBQ DAILY 05/13/18 11/09/20 metFORMIN [Glucophage] 1,000 mg PO BID 09/29/18 11/09/20 amLODIPine [Norvasc] 5 mg PO DAILY 12/28/18 11/09/20 Losartan/Hydrochlorothiazide 1 tab PO DAILY 01/24/19 11/09/20 [Losartan-Hctz 100-25 mg Tab] Insulin Aspart [NovoLOG] 1 - 12 units SQ TIDWM 05/08/20 11/09/20 - Allergies Allergies/Adverse Reactions: Allergies Allergy/AdvReac Type Severity Reaction Status Date / Time hydromorphone [From Dilaudid] Allergy Itching Verified 11/09/20 13:15 - Social History Does the pt smoke?: No Smoking Status: Former smoker Does the pt drink ETOH?: Yes Does the pt have substance abuse?: No - Immunizations Immunizations are current?: Yes - POLST Patient has POLST: No POLST Status: Full Code PD ED PE NORMAL - Vitals Vital signs reviewed: Yes - General General: Alert and oriented X 3, No acute distress - HEENT HEENT: PERRL, EOMI - Neck Neck: Supple, no meningeal sign, No bony TTP - Cardiac Cardiac: RRR, No murmur - Respiratory Respiratory: No respiratory distress, Clear bilaterally - Abdomen Abdomen: Non tender - Back Back: No CVA TTP, No spinal TTP - Derm Derm: Normal color, Warm and dry - Extremities Extremities: Other (Appearance of a deep 1.5 cm ulcer/abscess without fluctuance on the dorsum of the left fourth toe with some cellulitis streaking up to mid foot.) - Neuro Neuro: Alert and oriented X 3, Normal speech Eye Opening: Spontaneous Motor: Obeys Commands Verbal: Oriented GCS Score: 15 - Psych Psych: Normal mood, Normal affect Results - Vitals Vitals: Vital Signs - 24 hr 11/09/20 13:16 Temperature 36.7 C Heart Rate 107 H Respiratory 18 Rate Blood Pressure 191/79 H O2 Saturation 98 Oxygen O2 Source Room air - Labs Labs: Laboratory Tests 11/09/20 11/09/20 11/09/20 13:48 13:48 13:48 WBC 10.9 H RBC 4.89 Hgb 16.4 Hct 45.9 MCV 93.9 MCH 33.5 H MCHC 35.7 RDW 11.9 L Plt Count 264 MPV 10.4 Neut # (Auto) 8.1 H Lymph # (Auto) 1.5 [place] # (Auto) 1.1 H Eos # (Auto) 0.2 Baso # (Auto) 0.1 Absolute Nucleated RBC 0.00 Nucleated RBC % 0.0 ESR 5 Sodium 136 Potassium 3.8 Chloride 98 L Carbon Dioxide 22 Anion Gap 16.0 H BUN 22 H Creatinine 0.7 Estimated GFR (MDRD) 116 Glucose 294 H Calcium 9.3 Total Bilirubin 0.5 AST 14 ALT 21 Alkaline Phosphatase 77 C-Reactive Protein 2.2 H Total Protein 7.3 Albumin 4.1 Globulin 3.2 Albumin/Globulin Ratio 1.3 - Rads (name of study) L foot 3v Radiology: EMP read contemporaneously (no obvious osteomyelitis) PD MEDICAL DECISION MAKING - ED course ED course: Spoke with Dr Kirk Alatorre, orthopedic [facility] iam consultant about 1345. We discussed the previous concerns about vascular disease, although he seems well perfused on exam today and previous WILMA was reviewed. He did not feel there was any pressing reason from a surgical standpoint that he would need to be transferred. 55-year-old gentleman with uncontrolled diabetes and recurrent diabetic foot infections presents with a left fourth toe with cellulitis of the foot. Labs are not too bad. He is tachycardic. Spoke with Dr. Lara for admission at 1433. Departure - Departure Disposition: [facility] DC/Xfer Clinical Impression: Abscess of left foot including toes Diabetes type 2, uncontrolled Qualifiers: Glycemic state: with hyperglycemia Qualified Code(s): E11.65 - Type 2 diabetes mellitus with hyperglycemia Condition: Stable Discharge Date/Time: 11/09/20 17:07
[2020-11-09] MEDS ORDERED: ceFAZolin 2 GM/50 ML 2 GM/50 ML BAG IV ONE (13:43)
--- NOTE | 2020-11-09 13:52 | XRAY Report ---
PROCEDURE: Foot 3 View LT INDICATIONS: infection, poss osteo 4th toe TECHNIQUE: 3 views of the foot were acquired. COMPARISON: 09/22/2020 FINDINGS: Bones: Postsurgical changes compatible with section of the second and fifth digits distal to the hea ds of the metatarsals stable compared to 09/22/2020. No osseous erosive change or periosteal reaction . No fractures or dislocations. No suspicious bony lesions. Soft tissues: No tibiotalar joint effusion. Achilles tendon appears normal. Soft tissue swelling no mariluz in the fourth digit. No soft tissue gas. IMPRESSION: No milvia evidence of osteomyelitis. Please note plain from radiographs can be insensitive to osteomye litis in the initial 15 days of the disease. There is continued clinical concern for osteomyelitis co nsider three-phase nuclear bone scan for further evaluation. Reviewed by: Sherly Wu MD, PhD on 11/09/2020 12:51 PM AKST Approved by: Sherly Wu MD, PhD on 11/09/2020 12:51 PM AKST Station ID: [id number]
[2020-11-09 14:06] LABS: BASOPHILS # (AUTO) 0.1 10^3/uL (0.0-0.1); BASOPHILS % (AUTO) 0.7 %; EOSINOPHILS # (AUTO) 0.2 10^3/uL (0.0-0.7); EOSINOPHILS % (AUTO) 1.4 %; HGB - HEMOGLOBIN 16.4 g/dL (14.0-18.0); LYMPHOCYTES # (AUTO) 1.5 10^3/uL (1.5-3.5); LYMPHOCYTES % (AUTO) 13.3 %; MEAN CORPUSCULAR HEMOGLOBIN 33.5 pg (27.0-31.0); MEAN CORPUSCULAR HGB CONC 35.7 g/dL (32.0-36.0); MEAN CORPUSCULAR VOLUME 93.9 fL (80.0-94.0); MEAN PLATELET VOLUME 10.4 fL (7.4-11.4); MONOCYTES # (AUTO) 1.1 10^3/uL (0.0-1.0); MONOCYTES % (AUTO) 9.8 %; NEUTROPHILS # (AUTO) 8.1 10^3/uL (1.5-6.6); NEUTROPHILS % (AUTO) 74.4 %; PLT - PLATELET COUNT 264 10^3/uL (130-450); RED BLOOD COUNT 4.89 10^6/uL (4.70-6.10); RED CELL DISTRIBUTION WIDTH 11.9 % (12.0-15.0); WHITE BLOOD COUNT 10.9 x10^3/uL (4.8-10.8)
[2020-11-09 14:24] LABS: ALBUMIN 4.1 g/dL (3.2-5.5); ALBUMIN/GLOBULIN RATIO 1.3 (1.0-2.2); BILIRUBIN,TOTAL 0.5 mg/dL (0.2-1.0); CALCIUM 9.3 mg/dL (8.5-10.3); CREATININE 0.7 mg/dL (0.6-1.2); CRP - C-REACTIVE PROTEIN 2.2 mg/dL (0-1.0); TOTAL PROTEIN 7.3 g/dL (6.7-8.2)
[2020-11-09] MEDS ORDERED: MORPHINE 2 MG/ML CARPUJECT IVP STA ×2 (14:33→15:57)
[2020-11-09] MEDS ORDERED: oxyCODONE 5 MG TABLET PO PRN (16:32)
[2020-11-09] MEDS ORDERED: ONDANSETRON 4 MG/2 ML VIAL IVP PRN (16:32)
[2020-11-09] MEDS ORDERED: LOSARTAN PO SCH (16:39)
[2020-11-09] MEDS ORDERED: [UNRECOGNIZED DRUG - OTHER] PO SCH (16:39)
[2020-11-09] MEDS ORDERED: HYDROCHLOROTHIAZIDE PO SCH (16:39)
[2020-11-09] MEDS ORDERED: hydrALAZINE INJ 20 MG/ML VIAL IVP PRN (16:55)
[2020-11-09] MEDS ORDERED: ceFAZolin 1 GM in SODIUM CHLORIDE 0.9% MINIBAG 100 ML IV SCH (17:00)
--- NOTE | 2020-11-09 17:12 | HISTORY & PHYSICAL EXAMINATION ---
Chief Complaint - Chief Complaint Chief Complaint: left fourth toe erythema History of Present Illness - Admitted From Admitted From:: ER - History Obtained From Records Reviewed: [facility] History obtained from: pt Exam Limitations: no - History of Present Illness HPI Comment/Other: Patient is a 55-year-old gentleman with a past medical history significant for uncontrolled insulin-dependent type 2 diabetes, hypertension, tobacco abuse, peripheral neuropathy, hyperlipidemia and recurrent diabetic foot infections with multiple amputations including bilateral foot toes, who presents to the emergency department today with chief complaint of left fourth toe erythema and infection. pt report he had 1 day of redness and pain to fourth left toe. Patient toe became red yesterday. He denies fever, chill. The toe currently has no drainage, but it has redness and swelling with little pain. pt report he had infection spread quickly on last time, that is why he came to hospital. pt denies current cigarette smoking but he ask nicotine patch. Xray of left foot and toe reveals no milvia evidence of osteomyelitis. Routine laboratory tests that show glucose 294, WBC 10.9, CRP 2.2. Orthopedic surgeon was called by the ER for consultation. Given above medical condition patient was consulted for medical team for admission. Discussed the care goal with the patient, patient requests full code History - Past Medical History Cardiovascular: reports: Hypertension, High cholesterol Respiratory: reports: None Neuro: reports: Peripheral neuropathy Endocrine/Autoimmune: reports: Type 2 diabetes GI: reports: None : reports: None HEENT: reports: None Psych: reports: None Musculoskeletal: reports: Other Derm: reports: None MRSA Hx?: No - Past Surgical History General: reports: Appendectomy Ortho: reports: Amputation - Family & Social History Family History: Mother: , Alzheimer's Disease, Father: , CAD, Diabetes, Type 2, Hyperlipidemia, Hypertension, [place], Other family: CVA/TIA Family History Comment/Other: Reports his father had heart disease and diabetes. He passes from a large myocardial infarction. His grandmother also had diabetes. Social History Notes: The patient lives at home with a roommate. 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 He has been there for the last 4 months. He does report drinking 1-2 alcoholic beverages a day for quite a few years. Denies a history of alcohol withdrawal. He did smoke a pack to a pack and 1/2 a day for about 30 years but quit 1 year ago. He denies any illicit drug use. - Substance History Use: Uses substance without health or social issues: Tobacco, Alcohol - POLST Patient has POLST: No POLST Status: Full Code Meds/Allgy - Home Medications Home Medications: Ambulatory Orders Medication Instructions Recorded Confirmed Insulin Glargine,Hum.rec.anlog 30 units SQ QPM 03/07/15 11/09/20 [Lantus Solostar] Gabapentin 300 - 600 mg PO TID 10/05/16 11/09/20 Atorvastatin Calcium 10 mg PO DAILY 07/31/17 11/09/20 Liraglutide [Victoza 2-Florian] 1.8 mg SUBQ DAILY 05/13/18 11/09/20 metFORMIN [Glucophage] 1,000 mg PO BID 09/29/18 11/09/20 amLODIPine [Norvasc] 5 mg PO DAILY 12/28/18 11/09/20 Losartan/Hydrochlorothiazide 1 tab PO DAILY 01/24/19 11/09/20 [Losartan-Hctz 100-25 mg Tab] Insulin Aspart [NovoLOG] 1 - 12 units SQ TIDWM 05/08/20 11/09/20 - Allergies Allergies/Adverse Reactions: Allergies Allergy/AdvReac Type Severity Reaction Status Date / Time hydromorphone [From Dilaudid] Allergy Itching Verified 11/09/20 13:15 Review of Systems - Constitutional Constitutional: denies: Fever, Chills, Weakness, Poor appetite, Diaphoresis - Eyes Eyes: denies: Pain, Blurred vision, Field loss, Vision loss, Dipolpia - Ears, Nose & Throat Ears, Nose & Throat: denies: Ear pain, Vertigo, Nosebleeds, Sore throat, Bleeding gums - Cardiovascular Cariovascular: denies: Irregular heart rate, Palpitations, Chest pain, Edema, Lightheadedness, Syncope, Exertional dyspnea, Decr. exercise tolerance - Respiratory Respiratory: denies: Cough, Sputum production, Wheezing, Hemoptysis, Orthopnea, SOB at rest, SOB with exertion - Gastrointestinal Gastrointestinal: denies: Abdominal pain, Constipation, Diarrhea, Rectal bleeding, Black stools, Bloody stools, Nausea, Vomiting - Genitourinary Genitourinary: denies: Dysuria, Urgency, Incontinence - Musculoskeletal Musculoskeletal: denies: Muscle pain, Muscle aches, Limited range of motion - Integumentary Integumentary: reports: Rash. denies: Dryness, Lumps - Neurological Neurological: denies: Focal weakness, Headache, Dizziness, Numbness, Pre- existing deficit, Abnormal gait, Seizures, Incoordination, Slurred speech - Psychiatric Psychiatric: denies: Depression, Anxiety, Suicidal - Hematologic/Lymphatic Hematologic/Lymphatic: reports: Recurrent infections. denies: Anemia, Blood ángel ts, Bleeding tendencies Prior Level of Functionality: Patient is independent in the home Exam - Vital Signs Vital Signs: Vital Signs x48h Temp Pulse Resp BP Pulse Ox 11/09/20 16:56 70 16 158/90 H 98 11/09/20 13:16 36.7 C 107 H 18 191/79 H 98 - Physical Exam General Appearance: positive: No acute distress, Alert. negative: Lethargic Eyes Bilateral: positive: Normal inspection, PERRL, No lid inflammation ENT: positive: ENT inspection nml, No signs of dehydration. negative: Purulent nasal drainage Neck: positive: Nml inspection, Trachea midline. negative: Thyromegaly, Tracheal deviation Respiratory: positive: Chest non-tender, No respiratory distress, Breath sounds nml. negative: Wheezes, Rales, Rhonchi Cardiovascular: positive: Regular rate & rhythm, No murmur. negative: Tachyc ardia, Bradycardia, Systolic murmur, Diastolic murmur Peripheral Pulses: positive: 2+ Abdomen: positive: Non-tender, Nml bowel sounds, No distention. negative: Tenderness, Guarding, Rebound Back: positive: Nml inspection Skin: positive: Warm, Dry, Other (erythema at whole left the fourth toe, small burst at lateral of left fourth toe, no drainage.). negative: Cyanosis, Diaphoresis, Pallor Extremities: positive: Non-tender. negative: Calf tenderness Neurologic/Psychiatric: positive: Oriented x3, Motor nml, Sensation nml, Mood/affect nml. negative: Sensory loss, Facial droop, Slurred/abnml speech, Depressed mood/affect Sepsis Event Note (H) - Evaluation Current Stage of Sepsis: Ruled out Conclusion/Plan - Problem List (1) Diabetic foot infection Conclusion/Plan: Patient has diabetic left fourth toe infection, cellulitis without drainage now. pt has hx of multiple diabetic foot infection and Multiple amputation of his feet toes. Xray show no evidence of osteomyelitis now. According to patient's previous wound culture, we choose Ancef intravenous. we will closely monitor the infection prognosis to determine further intervention, such as MRI study for toe. (2) Diabetes type 2, uncontrolled Conclusion/Plan: Patient has a history of uncontrolled diabetic, We will resume patient home Lantus, continue sliding scale. Glucose check, hypoglycemia Protocol. Qualifiers: Glycemic state: with hyperglycemia Qualified Code(s): E11.65 - Type 2 diabetes mellitus with hyperglycemia (3) HTN (hypertension) Conclusion/Plan: We will resume patient home blood pressure medicine HCTZ/Losantar, Amlodipine. Add hydralazine as needed - Lab Results Fish Bones: 11/09/20 13:48 11/09/20 13:48 Core Measures - Anticipated LOS I expect patient to be DC'd or transferred within 96 hours.: Yes - DVT/VTE - Prophylaxis VTE/DVT Device ordered at admit?: Yes VTE/DVT Prophylaxis med ordered at admit?: Yes
--- NOTE | 2020-11-09 17:41 | CONSULTATION NOTE ---
Referring Provider Name of Referring Provider:: bebeto lund Consult Date: 11/09/20 Chief Complaint - Chief Complaint Chief Complaint: Fourth left toe pain and redness History of Present Illness - Admitted From Admitted From:: ER - History of Present Illness HPI Comment/Other: Pt is 55 yo male with uncontrolled DM with peripheral neuropathy with multiple bilateral foot amputations present for 1 day of redness and pain to fourth left toe. Pt had new shoes a month ago and developed a pressure sore dorsal surface same toe. Patient toe became red yesterday and preasents for IV antibiotics because "last time this happened it got infected quick" Patient has no current drainage, has redness and swelling but little pain. No fever or chills, some dainage days ago History - Past Medical History Cardiovascular: reports: Hypertension, High cholesterol Respiratory: reports: None Neuro: reports: Peripheral neuropathy Endocrine/Autoimmune: reports: Type 2 diabetes GI: reports: None : reports: None HEENT: reports: None Psych: reports: None Musculoskeletal: reports: Other Derm: reports: None MRSA Hx?: No - Past Surgical History General: reports: Appendectomy Ortho: reports: Amputation - Family & Social History Family History: Mother: , Alzheimer's Disease, Father: , CAD, Diabetes, Type 2, Hyperlipidemia, Hypertension, [place], Other family: CVA/TIA Family History Comment/Other: Reports his father had heart disease and diabetes. He passes from a large myocardial infarction. His grandmother also had diabetes. Social History Notes: The patient lives at home with a roommate. 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 He has been there for the last 4 months. He does report drinking 1-2 alcoholic beverages a day for quite a few years. Denies a history of alcohol withdrawal. He did smoke a pack to a pack and 1/2 a day for about 30 years but quit 1 year ago. He denies any illicit drug use. - Substance History Use: Uses substance without health or social issues: Tobacco, Alcohol - POLST Patient has POLST: No POLST Status: Full Code Meds/Allgy - Home Medications Home Medications: Ambulatory Orders Medication Instructions Recorded Confirmed Insulin Glargine,Hum.rec.anlog 30 units SQ QPM 03/07/15 11/09/20 [Lantus Solostar] Gabapentin 300 - 600 mg PO TID 10/05/16 11/09/20 Atorvastatin Calcium 10 mg PO DAILY 07/31/17 11/09/20 Liraglutide [Victoza 2-Florian] 1.8 mg SUBQ DAILY 05/13/18 11/09/20 metFORMIN [Glucophage] 1,000 mg PO BID 09/29/18 11/09/20 amLODIPine [Norvasc] 5 mg PO DAILY 12/28/18 11/09/20 Losartan/Hydrochlorothiazide 1 tab PO DAILY 01/24/19 11/09/20 [Losartan-Hctz 100-25 mg Tab] Insulin Aspart [NovoLOG] 1 - 12 units SQ TIDWM 05/08/20 11/09/20 - Allergies Allergies/Adverse Reactions: Allergies Allergy/AdvReac Type Severity Reaction Status Date / Time hydromorphone [From Dilaudid] Allergy Itching Verified 11/09/20 13:15 Review of Systems - Constitutional Constitutional: denies: Fever, Chills (redness and swelling to toe. Denies fever, chills, recent drainage) Exam - Vital Signs Vital Signs: Vital Signs x48h Temp Pulse Pulse Resp BP BP Pulse Ox 11/09/20 17:23 36.4 C L 73 18 180/85 H 96 11/09/20 16:56 70 16 158/90 H 98 11/09/20 13:16 36.7 C 107 H 18 191/79 H 98 - Physical Exam General Appearance: positive: No acute distress (Skin is dry and pallor is white. The fourth toe has a healing pressure sore dorsal surface. The toe is red wiht fusiform swelling. No warmth. Pedal pulses present, decreased. Sensation decreased to foot. ROM preserve) Conclusion and Plan - Lab Results Laboratory Results 11/09/20 13:48: Sodium 136, Potassium 3.8, Chloride 98 L, Carbon Dioxide 22, Anion Gap 16.0 H, BUN 22 H, Creatinine 0.7, Estimated GFR (MDRD) 116, Glucose 294 H, Calcium 9.3, Total Bilirubin 0.5, AST 14, ALT 21, Alkaline Phosphatase 77, C-Reactive Protein 2.2 H, Total Protein 7.3, Albumin 4.1, Globulin 3.2, Albumin/Globulin Ratio 1.3 11/09/20 13:48: ESR 5 11/09/20 13:48: WBC 10.9 H, RBC 4.89, Hgb 16.4, Hct 45.9, MCV 93.9, MCH 33.5 H, MCHC 35.7, RDW 11.9 L, Plt Count 264, MPV 10.4, Neut # (Auto) 8.1 H, Lymph # (Auto) 1.5, [place] # (Auto) 1.1 H, Eos # (Auto) 0.2, Baso # (Auto) 0.1, Absolute Nucleated RBC 0.00, Nucleated RBC % 0.0 - Diagnostic Imaging Results Diagnostic Imaging Results Comments: I have independently visualized the radiograph of hte left foot showing no acute fx, dislocations, no acute osteomyelitis present. There was a second ray and fi fth ray amputation, well healed. There are some changes to the fourth metacarpal head suggestive of reduced blood supply - Diagnosis Diagnosis: Infection left fourth toe - Plan Plan: Comanged care with hospitalist. Assessment is infection left fourth toe not acute ossteomyelitis. Plan is quit smoking, manage diabetes, IV anx and monitor s/s infx. Ideally preserve toe with amputation as a last resort
[2020-11-09] MEDS: INSULIN ASPART 300 UNIT/3 ML PEN SUBQ SCH ×3 (17:53→21:41)
[2020-11-09] MEDS: NICOTINE 14 MG PATCH TOP SCH (17:54)
[2020-11-09] MEDS: MORPHINE 2 MG/ML CARPUJECT IVP PRN ×2 (17:54→20:12)
[2020-11-09] MEDS: SODIUM CHLORIDE FLUSH 0.9% 10 ML SYRINGE IVP SCH (17:56)
[2020-11-09] MEDS: SODIUM CHLORIDE 0.9% 1,000 ML IV SCH (17:56)
[2020-11-09] MEDS: LOSARTAN 50 MG TABLET PO SCH (18:01)
[2020-11-09] MEDS: amLODIPine 5 MG TABLET PO SCH (18:01)
[2020-11-09] MEDS: hydroCHLOROthiazide 25 MG TABLET PO SCH (18:01)
[2020-11-09 18:07] LABS: C. PNEUMONIAE- RESP PCR PANEL NOT DETECTED
[2020-11-09] MEDS: GABAPENTIN 300 MG CAPSULE PO SCH ×2 (18:11→21:35)
[2020-11-09] MEDS: ceFAZolin 1 GM in SODIUM CHLORIDE 0.9% MINIBAG 100 ML IV SCH (21:35)
[2020-11-09] MEDS: ZOLPIDEM 5 MG TABLET PO PRN (21:35)
[2020-11-09] MEDS: FAMOTIDINE 20 MG TABLET PO SCH (21:35)
[2020-11-09] MEDS: INSULIN GLARGINE 300 UNIT/3 ML PEN SUBQ SCH (21:39)
[2020-11-09] MEDS: ACETAMINOPHEN 325 MG TABLET PO PRN (23:26)
[2020-11-10] MEDS: SODIUM CHLORIDE FLUSH 0.9% 10 ML SYRINGE IVP SCH ×3 (00:30→16:26)
[2020-11-10] MEDS: MORPHINE 2 MG/ML CARPUJECT IVP PRN ×5 (00:33→22:33)
[2020-11-10] MEDS: SODIUM CHLORIDE 0.9% 1,000 ML IV SCH (04:08)
[2020-11-10 05:34] LABS: BASOPHILS # (AUTO) 0.1 10^3/uL (0.0-0.1); BASOPHILS % (AUTO) 0.7 %; EOSINOPHILS # (AUTO) 0.3 10^3/uL (0.0-0.7); EOSINOPHILS % (AUTO) 3.4 %; HGB - HEMOGLOBIN 14.5 g/dL (14.0-18.0); LYMPHOCYTES % (AUTO) 24.4 %; MEAN CORPUSCULAR HEMOGLOBIN 32.6 pg (27.0-31.0); MEAN CORPUSCULAR VOLUME 95.7 fL (80.0-94.0); MEAN PLATELET VOLUME 10.1 fL (7.4-11.4); MONOCYTES # (AUTO) 0.8 10^3/uL (0.0-1.0); MONOCYTES % (AUTO) 9.8 %; NEUTROPHILS % (AUTO) 61.5 %; PLT - PLATELET COUNT 238 10^3/uL (130-450); RED BLOOD COUNT 4.45 10^6/uL (4.70-6.10); RED CELL DISTRIBUTION WIDTH 12.1 % (12.0-15.0); WHITE BLOOD COUNT 8.2 x10^3/uL (4.8-10.8)
[2020-11-10] MEDS: GABAPENTIN 300 MG CAPSULE PO SCH ×3 (05:34→22:20)
[2020-11-10] MEDS: ceFAZolin 1 GM in SODIUM CHLORIDE 0.9% MINIBAG 100 ML IV SCH ×3 (05:35→22:18)
[2020-11-10 05:53] LABS: CALCIUM 8.8 mg/dL (8.5-10.3); CREATININE 0.7 mg/dL (0.6-1.2)
[2020-11-10] MEDS: INSULIN ASPART 300 UNIT/3 ML PEN SUBQ SCH ×4 (08:39→22:40)
[2020-11-10] MEDS: hydroCHLOROthiazide 25 MG TABLET PO SCH (08:39)
[2020-11-10] MEDS: ACETAMINOPHEN 325 MG TABLET PO PRN ×3 (08:40→22:30)
[2020-11-10] MEDS: LOSARTAN 50 MG TABLET PO SCH (08:40)
[2020-11-10] MEDS: FAMOTIDINE 20 MG TABLET PO SCH ×2 (08:40→22:20)
[2020-11-10] MEDS: amLODIPine 5 MG TABLET PO SCH (08:40)
[2020-11-10] MEDS: ENOXAPARIN 40 MG/0.4 ML SYRINGE SUBQ SCH (08:42)
[2020-11-10] MEDS: NICOTINE 14 MG PATCH TOP SCH (08:42)
[2020-11-10] MEDS ORDERED: FLU VACC QS2020-21(6MOS UP)/PF 60 MCG/0.5 ML SYRINGE IM ONE (09:00)
[2020-11-10 11:39] LABS: HEMOGLOBIN A1c% 10.3 % (4.27-6.07)
--- NOTE | 2020-11-10 12:52 | PHARMACY PROGRESS NOTE ---
- Best Possible Medication History Admit Date and Time: 11/09/20 3394 Processed by: Nursing Medication History completed: Yes As the person ultimately responsible for medication therapy, providers are able to order a medication from an existing home medication list in [facility] via the "Reconcile Routine" prior to Confirmation of that medication by net application support specialist. Such practice is discouraged except when the physician, in their clinical judgment, deems that a medical need exists for a medication without regard to previous use.
[2020-11-10] MEDS ORDERED: INSULIN ASPART 300 UNIT/3 ML PEN SUBQ ONE (13:40)
--- NOTE | 2020-11-10 14:17 | PROVIDER PROGRESS NOTE ---
Assessment/Plan - Problem List (1) Diabetic foot infection Assessment/Plan: 11/10 Improved, Erythema is reduced, WBC and CRP are also reduced. pt state "I hope to cut my left fourth toe, otherwise I will come back very soon with same problem, it is like happened before, eventually my toe need to be cut." We will order MRI to r/o bony infection. Patient has diabetic left fourth toe infection, cellulitis without drainage now. 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 Xray show no evidence of osteomyelitis now. According to patient's previous wound culture, we choose Ancef intravenous. we will closely monitor the infection prognosis to determine further intervention, such as MRI study for toe. (2) Diabetes type 2, uncontrolled Conclusion/Plan: 11/10 Uncontrolled diabetic, patient has A1c 10.3, And elevated glucose level in the morning. We will add morning Lantus and add Novolog insulin, Continue sliding-scale. Patient has a history of uncontrolled diabetic, We will resume patient home Lantus, continue sliding scale. Glucose check, hypoglycemia Protocol. (3) HTN (hypertension) Conclusion/Plan: We will resume patient home blood pressure medicine HCTZ/Losantar, Amlodipine. Add hydralazine as needed (2) Diabetes type 2, uncontrolled Qualifiers: Glycemic state: with hyperglycemia Qualified Code(s): E11.65 - Type 2 diabetes mellitus with hyperglycemia - Current Meds Current Meds: Current Medications Generic Name Dose Route Start Last Admin Trade Name Freq PRN Reason Stop Dose Admin Acetaminophen 650 mg 11/09/20 16:32 11/10/20 08:40 Acetaminophen 325 Mg Tablet PO 650 mg Q4HR PRN Administration Pain 1 to 4 Amlodipine Besylate 5 mg 11/09/20 16:40 11/10/20 08:40 Amlodipine 5 Mg Tablet PO 5 mg DAILY LILLIAN Administration Enoxaparin Sodium 40 mg 11/10/20 09:00 11/10/20 08:42 Enoxaparin 40 Mg/0.4 Ml Syringe SUBQ 40 mg DAILY LILLIAN Administration Famotidine 20 mg 11/09/20 21:00 11/10/20 08:40 Famotidine 20 Mg Tablet PO 20 mg BID LILLIAN Administration Gabapentin 300 mg 11/09/20 17:00 11/10/20 13:49 Gabapentin 300 Mg Capsule PO 300 mg TID LILLIAN Administration Hydrochlorothiazide 25 mg 11/09/20 18:00 11/10/20 08:39 Hydrochlorothiazide 25 Mg Tablet PO 25 mg DAILY LILLIAN Administration Cefazolin Sodium 1 gm/ Sodium 100 mls @ 200 mls/hr 11/09/20 18:18 11/10/20 13:48 Chloride IV 200 mls/hr Q8HR LILLIAN Administration Insulin Aspart 3 - 11 unit 11/09/20 21:38 11/10/20 12:03 Insulin Aspart 300 Unit/3 Ml Pen SUBQ 9 unit 0800,1200,1700,2100 LILLIAN Administration Protocol Insulin Glargine 30 unit 11/09/20 21:00 11/09/20 21:39 Insulin Glargine 300 Unit/3 Ml Pen SUBQ 30 unit QPM LILLIAN Administration Losartan Potassium 100 mg 11/09/20 18:00 11/10/20 08:40 Losartan 50 Mg Tablet PO 100 mg DAILY LILLIAN Administration Morphine Sulfate 2 mg 11/09/20 16:32 11/10/20 08:41 Morphine 2 Mg/Ml Carpuject IVP 2 mg Q2HR PRN Administration Pain 8 to 10 Nicotine 1 patch 11/09/20 17:36 11/10/20 08:42 Nicotine 14 Mg Patch TOP 1 patch DAILY [facility] Administration Oxycodone HCl 5 mg 11/09/20 16:32 11/09/20 23:26 Oxycodone 5 Mg Tablet PO 5 mg Q4HR PRN Administration Pain 5 to 7 Sodium Chloride 10 ml 11/09/20 17:00 11/10/20 08:42 Sodium Chloride Flush 0.9% 10 Ml Syringe IVP Not Given 0100,0900,1700 [facility] Zolpidem Tartrate 5 mg 11/09/20 18:38 11/09/20 21:35 Zolpidem 5 Mg Tablet PO 5 mg QPM PRN Administration Insomnia - Lab Result Fish Bone Diagrams: 11/10/20 05:25 11/10/20 05:25 - Additional Planning My Orders: My Active Orders 11/09/20 Dinner Carb-controlled Diet [DIET] 11/09/20 16:32 Activity Orders [RC] Q2HR IO [RC] IOSHIFT Initiate Bowel Care Protocol [RC] .protocol Initiate Line Care Protocol [RC] QSHIFT Initiate Personal Care Protoco [RC] .protocol Vital Signs [RC] 0800,1600,0000 Acetaminophen [Tylenol] 650 mg PO Q4HR PRN Morphine Inj (Carpuject) [Morphine (Carpuject)] 2 mg IVP Q2HR PRN Ondansetron Inj [Zofran Inj] 4 mg IVP Q6HR PRN Sodium Chloride Flush 0.9% [Normal Saline Flush 0.9%] 10 ml IVP PRN PRN oxyCODONE [Roxicodone] 5 mg PO Q4HR PRN Code Status [OTHERS] Routine Condition of Patient [OTHERS] Routine 11/09/20 16:34 IV Insert [RC] .ONCE 11/09/20 16:35 Orthopedics Consult [CONS] Routine 11/09/20 16:40 amLODIPine [Norvasc] 5 mg PO DAILY 11/09/20 16:41 Blood Glucose Checks - Eating [RC] 0800,1200,1700,2100 Initiate Hypoglycemia Protocol [RC] .protocol 11/09/20 16:55 hydrALAZINE INJ [Apresoline Inj] 10 mg IVP QID PRN 11/09/20 17:00 Gabapentin [Neurontin] 300 mg PO TID Sodium Chloride Flush 0.9% [Normal Saline Flush 0.9%] 10 ml IVP 0100,0900,1700 11/09/20 17:36 Nicotine 14 mg Patch [Nicoderm] 1 patch TOP DAILY 11/09/20 18:00 Losartan [Cozaar] 100 mg PO DAILY hydroCHLOROthiazide [Hydrodiuril] 25 mg PO DAILY 11/09/20 18:18 ceFAZolin [Ancef] 1 gm Sodium Chloride 0.9% Minibag [Normal Saline 0.9% Minibag] 100 ml IV Q8HR 11/09/20 18:38 Zolpidem [Ambien] 5 mg PO QPM PRN 11/09/20 21:00 Famotidine [Pepcid] 20 mg PO BID Insulin Glargine [Lantus Solostar] 30 unit SUBQ QPM 11/09/20 21:38 Insulin Aspart [NovoLOG] 3 - 11 unit SUBQ 0800,1200,1700,2100 11/10/20 09:00 Enoxaparin [Lovenox] 40 mg SUBQ DAILY 11/10/20 13:42 FOOT WO - LT [MRI] Routine 11/11/20 05:00 BMP - BASIC METABOLIC PANEL [CHEM] DAILYLAB CBC - COMP BLD CT W/AUTO DIFF [HEME] DAILYLAB CRP - C-REACTIVE PROTEIN [CHEM] DAILYLAB 11/11/20 08:00 Insulin Glargine [Lantus Solostar] 10 unit SUBQ QDBREAKFAST 11/12/20 05:00 BMP - BASIC METABOLIC PANEL [CHEM] DAILYLAB CBC - COMP BLD CT W/AUTO DIFF [HEME] DAILYLAB CRP - C-REACTIVE PROTEIN [CHEM] DAILYLAB 11/13/20 05:00 BMP - BASIC METABOLIC PANEL [CHEM] DAILYLAB CBC - COMP BLD CT W/AUTO DIFF [HEME] DAILYLAB CRP - C-REACTIVE PROTEIN [CHEM] DAILYLAB 11/14/20 05:00 BMP - BASIC METABOLIC PANEL [CHEM] DAILYLAB CBC - COMP BLD CT W/AUTO DIFF [HEME] DAILYLAB CRP - C-REACTIVE PROTEIN [CHEM] DAILYLAB 11/15/20 05:00 BMP - BASIC METABOLIC PANEL [CHEM] DAILYLAB CBC - COMP BLD CT W/AUTO DIFF [HEME] DAILYLAB CRP - C-REACTIVE PROTEIN [CHEM] DAILYLAB Subjective - Subjective Patient Reports: Feeling Better Objective Vital Signs: Vital Signs - 24 hr 11/09/20 11/09/20 11/09/20 16:56 17:23 17:52 Temperature 36.4 C L Heart Rate 70 Heart Rate [ 73 Brachial] Respiratory 16 18 Rate Blood Pressure 158/90 H Blood Pressure 180/85 H 156/81 H [Right Brachial artery] O2 Saturation 98 96 11/09/20 11/10/20 23:45 08:00 Temperature 36.8 C 36.7 C Heart Rate Heart Rate [ 65 64 Brachial] Respiratory 17 16 Rate Blood Pressure Blood Pressure 126/71 135/91 H [Right Brachial artery] O2 Saturation 96 96 Oxygen O2 Source Room air I&O (Last 24 Hrs): Intake and Output Totals x24h 11/08/20 11/09/20 11/10/20 23:59 23:59 23:59 Intake Total 1270 3475 Balance 1270 3475 General: Alert, Oriented x3, No acute distress HEENT: Atraumatic Neck: Supple Lymphatic: no adenopathy Neuro: Alert, Non Focal, Oriented Times 3 Cardiovascular: Normal S1, Normal S2 Respiratory: Chest non-tender, No respiratory distress Abdomen: Normal bowel sounds, Soft, No tenderness - Results Results: Laboratory Results WBC 8.2 x10^3/uL (4.8-10.8) 11/10/20 05:25 RBC 4.45 10^6/uL (4.70-6.10) L 11/10/20 05:25 Hgb 14.5 g/dL (14.0-18.0) 11/10/20 05:25 Hct 42.6 % (42.0-52.0) 11/10/20 05:25 MCV 95.7 fL (80.0-94.0) H 11/10/20 05:25 MCH 32.6 pg (27.0-31.0) H 11/10/20 05:25 MCHC 34.0 g/dL (32.0-36.0) 11/10/20 05:25 RDW 12.1 % (12.0-15.0) 11/10/20 05:25 Plt Count 238 10^3/uL (130-450) 11/10/20 05:25 MPV 10.1 fL (7.4-11.4) 11/10/20 05:25 Neut # (Auto) 5.0 10^3/uL (1.5-6.6) 11/10/20 05:25 Lymph # (Auto) 2.0 10^3/uL (1.5-3.5) 11/10/20 05:25 [place] # (Auto) 0.8 10^3/uL (0.0-1.0) 11/10/20 05:25 Eos # (Auto) 0.3 10^3/uL (0.0-0.7) 11/10/20 05:25 Baso # (Auto) 0.1 10^3/uL (0.0-0.1) 11/10/20 05:25 Absolute Nucleated RBC 0.00 x10^3/uL 11/10/20 05:25 Nucleated RBC % 0.0 /100WBC 11/10/20 05:25 ESR 5 mm/Hr (0-20) 11/09/20 13:48 Sodium 137 mmol/L (135-145) 11/10/20 05:25 Potassium 3.9 mmol/L (3.5-5.0) 11/10/20 05:25 Chloride 101 mmol/L (101-111) 11/10/20 05:25 Carbon Dioxide 26 mmol/L (21-32) 11/10/20 05:25 Anion Gap 10.0 (6-13) 11/10/20 05:25 BUN 18 mg/dL (6-20) 11/10/20 05:25 Creatinine 0.7 mg/dL (0.6-1.2) 11/10/20 05:25 Estimated GFR (MDRD) 116 (>89) 11/10/20 05:25 Glucose 109 mg/dL (70-100) H 11/10/20 05:25 POC Whole Bld Glucose 294 mg/dL (70 - 100) H 11/10/20 14:02 Estimat Average Glucose 249 mg/dL (70-100) H 11/10/20 05:25 Hemoglobin A1c % 10.3 % (4.27-6.07) H 11/10/20 05:25 Calcium 8.8 mg/dL (8.5-10.3) 11/10/20 05:25 Total Bilirubin 0.5 mg/dL (0.2-1.0) 11/09/20 13:48 AST 14 IU/L (10-42) 11/09/20 13:48 ALT 21 IU/L (10-60) 11/09/20 13:48 Alkaline Phosphatase 77 IU/L (42-121) 11/09/20 13:48 C-Reactive Protein 1.0 mg/dL (0-1.0) 11/10/20 05:25 Total Protein 7.3 g/dL (6.7-8.2) 11/09/20 13:48 Albumin 4.1 g/dL (3.2-5.5) 11/09/20 13:48 Globulin 3.2 g/dL (2.1-4.2) 11/09/20 13:48 Albumin/Globulin Ratio 1.3 (1.0-2.2) 11/09/20 13:48 Nasal Adenovirus (PCR) NOT DETECTED 11/09/20 17:01 Nasal B. parapertussis DNA (PCR) NOT DETECTED 11/09/20 17:01 Nasal Coronavir 229E PCR NOT DETECTED 11/09/20 17:01 Nasal Coronavir HKU1 PCR NOT DETECTED 11/09/20 17:01 Nasal Coronavir NL63 PCR NOT DETECTED 11/09/20 17:01 Nasal Coronavir OC43 PCR NOT DETECTED 11/09/20 17:01 Nasal Enterovir/Rhinovir PCR NOT DETECTED 11/09/20 17:01 Nasal Influenza B PCR NOT DETECTED 11/09/20 17:01 Nasal Influenza A PCR NOT DETECTED 11/09/20 17:01 Nasal Parainfluen 1 PCR NOT DETECTED 11/09/20 17:01 Nasal Parainfluen 2 PCR NOT DETECTED 11/09/20 17:01 Nasal Parainfluen 3 PCR NOT DETECTED 11/09/20 17:01 Nasal Parainfluen 4 PCR NOT DETECTED 11/09/20 17:01 Nasal RSV (PCR) NOT DETECTED 11/09/20 17:01 Nasal B.pertussis DNA PCR NOT DETECTED 11/09/20 17:01 Nasal C.pneumoniae (PCR) NOT DETECTED 11/09/20 17:01 Joseph Human Metapneumo PCR NOT DETECTED 11/09/20 17:01 Nasal M.pneumoniae (PCR) NOT DETECTED 11/09/20 17:01 Nasal SARS-CoV-2 (PCR) NOT DETECTED 11/09/20 17:01 - Procedures Procedures: Procedures DETACHMENT AT LEFT 2ND TOE, COMPLETE, OPEN APPROACH (03/11/16) DETACHMENT AT LEFT 5TH TOE, COMPLETE, OPEN APPROACH (04/30/17) DETACHMENT AT RIGHT 1ST TOE, HIGH, OPEN APPROACH (10/20/16) DETACHMENT AT RIGHT 5TH TOE, COMPLETE, OPEN APPROACH (06/05/18) EXCIS DEBRIDE OF WOUND, INFECT, OR BURN (02/19/15) EXCISION OF RIGHT METATARSAL, OPEN APPROACH (06/05/18) RESECTION OF LEFT METATARSAL, OPEN APPROACH (01/05/19) VENOUS CATHETERIZATION NEC (02/19/15) Sepsis Event Note (H) - Evaluation Current Stage of Sepsis: Ruled out ABX Reporting Has patient been on IV antibiotics over the past 48 hours?: Yes Current Medications - Current Medications Current Medications: Active Medications Acetaminophen (Acetaminophen 325 Mg Tablet) 650 mg PO Q4HR PRN PRN Reason: Pain 1 to 4 Last Admin: 11/10/20 08:40 Dose: 650 mg Documented by: Amlodipine Besylate (Amlodipine 5 Mg Tablet) 5 mg PO DAILY LILLIAN Last Admin: 11/10/20 08:40 Dose: 5 mg Documented by: Enoxaparin Sodium (Enoxaparin 40 Mg/0.4 Ml Syringe) 40 mg SUBQ DAILY [facility] Last Admin: 11/10/20 08:42 Dose: 40 mg Documented by: Famotidine (Famotidine 20 Mg Tablet) 20 mg PO BID [facility] Last Admin: 11/10/20 08:40 Dose: 20 mg Documented by: Gabapentin (Gabapentin 300 Mg Capsule) 300 mg PO TID [facility] Last Admin: 11/10/20 13:49 Dose: 300 mg Documented by: Hydralazine HCl (Hydralazine Inj 20 Mg/Ml Vial) 10 mg IVP QID PRN PRN Reason: Hypertensive Emergency Hydrochlorothiazide (Hydrochlorothiazide 25 Mg Tablet) 25 mg PO DAILY [facility] Last Admin: 11/10/20 08:39 Dose: 25 mg Documented by: Cefazolin Sodium 1 gm/ Sodium (Chloride) 100 mls @ 200 mls/hr IV Q8HR [facility] Last Admin: 11/10/20 13:48 Dose: 200 mls/hr Documented by: Insulin Aspart (Insulin Aspart 300 Unit/3 Ml Pen) 3 - 11 unit SUBQ 0800,1200,1700,2100 [facility]; Protocol Last Admin: 11/10/20 12:03 Dose: 9 unit Documented by: Insulin Glargine (Insulin Glargine 300 Unit/3 Ml Pen) 30 unit SUBQ QPM [facility] Last Admin: 11/09/20 21:39 Dose: 30 unit Documented by: Insulin Glargine (Insulin Glargine 300 Unit/3 Ml Pen) 10 unit SUBQ QDBREAKFAST [facility] Losartan Potassium (Losartan 50 Mg Tablet) 100 mg PO DAILY [facility] Last Admin: 11/10/20 08:40 Dose: 100 mg Documented by: Morphine Sulfate (Morphine 2 Mg/Ml Carpuject) 2 mg IVP Q2HR PRN PRN Reason: Pain 8 to 10 Last Admin: 11/10/20 08:41 Dose: 2 mg Documented by: Nicotine (Nicotine 14 Mg Patch) 1 patch TOP DAILY [facility] Last Admin: 11/10/20 08:42 Dose: 1 patch Documented by: Ondansetron HCl (Ondansetron 4 Mg/2 Ml Vial) 4 mg IVP Q6HR PRN PRN Reason: Nausea / Vomiting Oxycodone HCl (Oxycodone 5 Mg Tablet) 5 mg PO Q4HR PRN PRN Reason: Pain 5 to 7 Last Admin: 11/09/20 23:26 Dose: 5 mg Documented by: Sodium Chloride (Sodium Chloride Flush 0.9% 10 Ml Syringe) 10 ml IVP PRN PRN PRN Reason: NEEDED PER PROVIDER ORDERS Sodium Chloride (Sodium Chloride Flush 0.9% 10 Ml Syringe) 10 ml IVP 0100,0900,1700 LILLIAN Last Admin: 11/10/20 08:42 Dose: Not Given Documented by: Zolpidem Tartrate (Zolpidem 5 Mg Tablet) 5 mg PO QPM PRN PRN Reason: Insomnia Last Admin: 11/09/20 21:35 Dose: 5 mg Documented by: Insulin Glargine,Hum.rec.anlog [Lantus Solostar] 30 units SQ QPM 03/07/15 Gabapentin 300 - 600 mg PO TID 10/05/16 Atorvastatin Calcium 10 mg PO DAILY 07/31/17 Liraglutide [Victoza 2-Florian] 1.8 mg SUBQ DAILY 05/13/18 metFORMIN [Glucophage] 1,000 mg PO BID 09/29/18 amLODIPine [Norvasc] 5 mg PO DAILY 12/28/18 Losartan/Hydrochlorothiazide [Losartan-Hctz 100-25 mg Tab] 1 tab PO DAILY 01/24/19 Insulin Aspart [NovoLOG] 1 - 12 units SQ TIDWM 05/08/20
[2020-11-10] MEDS ORDERED: INSULIN REGULAR HUMAN 300 UNIT/3 ML VIAL SUBQ ONE (20:54)
[2020-11-10] MEDS: INSULIN GLARGINE 300 UNIT/3 ML PEN SUBQ SCH (22:21)
[2020-11-11] MEDS: SODIUM CHLORIDE FLUSH 0.9% 10 ML SYRINGE IVP PRN ×5 (00:34→14:00)
[2020-11-11] MEDS: MORPHINE 2 MG/ML CARPUJECT IVP PRN ×6 (00:34→22:25)
[2020-11-11] MEDS: SODIUM CHLORIDE FLUSH 0.9% 10 ML SYRINGE IVP SCH ×4 (00:34→23:48)
[2020-11-11 05:27] LABS: BASOPHILS # (AUTO) 0.1 10^3/uL (0.0-0.1); BASOPHILS % (AUTO) 1.1 %; EOSINOPHILS # (AUTO) 0.2 10^3/uL (0.0-0.7); EOSINOPHILS % (AUTO) 3.3 %; HGB - HEMOGLOBIN 14.6 g/dL (14.0-18.0); LYMPHOCYTES # (AUTO) 1.6 10^3/uL (1.5-3.5); LYMPHOCYTES % (AUTO) 24.3 %; MEAN CORPUSCULAR HEMOGLOBIN 33.1 pg (27.0-31.0); MEAN CORPUSCULAR HGB CONC 34.4 g/dL (32.0-36.0); MEAN CORPUSCULAR VOLUME 96.1 fL (80.0-94.0); MEAN PLATELET VOLUME 10.8 fL (7.4-11.4); MONOCYTES # (AUTO) 0.8 10^3/uL (0.0-1.0); MONOCYTES % (AUTO) 11.3 %; NEUTROPHILS % (AUTO) 59.7 %; PLT - PLATELET COUNT 235 10^3/uL (130-450); RED BLOOD COUNT 4.41 10^6/uL (4.70-6.10); RED CELL DISTRIBUTION WIDTH 11.8 % (12.0-15.0); WHITE BLOOD COUNT 6.6 x10^3/uL (4.8-10.8)
[2020-11-11] MEDS: GABAPENTIN 300 MG CAPSULE PO SCH ×3 (05:36→22:16)
[2020-11-11] MEDS: ACETAMINOPHEN 325 MG TABLET PO PRN ×3 (05:36→22:24)
[2020-11-11] MEDS: ceFAZolin 1 GM in SODIUM CHLORIDE 0.9% MINIBAG 100 ML IV SCH ×3 (05:37→22:31)
[2020-11-11 05:45] LABS: BUN - BLOOD UREA NITROGEN 14 mg/dL (6-20); CALCIUM 8.9 mg/dL (8.5-10.3); CARBON DIOXIDE - CO2 27 mmol/L (21-32); CHLORIDE 98 mmol/L (101-111); CREATININE 0.7 mg/dL (0.6-1.2); GLUCOSE 169 mg/dL (70-100)
[2020-11-11 06:02] LABS: CRP - C-REACTIVE PROTEIN < 1.0 mg/dL (0-1.0)
[2020-11-11] MEDS ORDERED: INSULIN GLARGINE 300 UNIT/3 ML PEN SUBQ SCH (08:00)
[2020-11-11] MEDS: FAMOTIDINE 20 MG TABLET PO SCH ×2 (08:18→22:16)
[2020-11-11] MEDS: ENOXAPARIN 40 MG/0.4 ML SYRINGE SUBQ SCH (08:18)
[2020-11-11] MEDS: amLODIPine 5 MG TABLET PO SCH (08:18)
[2020-11-11] MEDS: hydroCHLOROthiazide 25 MG TABLET PO SCH (08:18)
[2020-11-11] MEDS: INSULIN ASPART 300 UNIT/3 ML PEN SUBQ SCH ×4 (08:18→22:16)
[2020-11-11] MEDS: LOSARTAN 50 MG TABLET PO SCH (08:19)
[2020-11-11] MEDS: NICOTINE 14 MG PATCH TOP SCH (14:00)
--- NOTE | 2020-11-11 14:54 | MRI Report ---
PROCEDURE: Foot LT W/O INDICATIONS: left fourth toe osteomylelitis TECHNIQUE: Noncontrast coronal and sagittal T1 spin echo and STIR; axial T1 spin echo and T2 fast spin echo with fat saturation through the left foot. COMPARISON: Radiograph dated 11/01/2020. FINDINGS: Image quality: Excellent. Bones: Prominent marrow edema involving the fourth toe proximal phalanx with loss of normal marrow fa t signal intensity on T1-weighted pulse sequences. There is adjacent soft tissue edema, swelling and possible ulcerated appearance for example image 01/1001. Incidentally noted amputation of the second o f the level of the second MTP joint, and the fifth toe at the level of the distal fifth metatarsal. M arrow fat signal intensity appears preserved within the middle phalanx of the fourth toe. IMPRESSION: Suboptimal evaluation in the absence of IV contrast. Focal marrow signal changes involvi ng the fourth toe proximal phalanx near the PIP joint suspicious for osteomyelitis. Adjacent soft tis darya swelling and ulcerated appearance. Reviewed by: Lennox James MD on 11/11/2020 2:53 PM PST Approved by: Lennox James MD on 11/11/2020 2:53 PM PST Station ID: [id number]
--- NOTE | 2020-11-11 19:06 | PROVIDER PROGRESS NOTE ---
Assessment/Plan - Problem List (1) Diabetic foot infection Assessment/Plan: Patient is on cefazolin. Patient had an MRI without contrast of the left foot done today which was suggestive of osteomyelitis. Will discuss with the orthopedic surgeon Dr. Mark in the morning. (2) HTN (hypertension) Qualifiers: Assessment/Plan: On losartan 100 mg p.o. daily. On hydrochlorothiazide 25 mg p.o. daily. On hydralazine 10 mg IV 4 times daily as needed. (3) Type 2 diabetes mellitus Assessment/Plan: On Lantus 30 units subcu every afternoon. Sliding scale insulin and Accu-Cheks. - Current Meds Current Meds: Current Medications Generic Name Dose Route Start Last Admin Trade Name Freq PRN Reason Stop Dose Admin Acetaminophen 650 mg 11/09/20 16:32 11/11/20 16:54 Acetaminophen 325 Mg Tablet PO 650 mg Q4HR PRN Administration Pain 1 to 4 Amlodipine Besylate 5 mg 11/09/20 16:40 11/11/20 08:18 Amlodipine 5 Mg Tablet PO 5 mg DAILY LILLIAN Administration Enoxaparin Sodium 40 mg 11/10/20 09:00 11/11/20 08:18 Enoxaparin 40 Mg/0.4 Ml Syringe SUBQ 40 mg DAILY LILLIAN Administration Famotidine 20 mg 11/09/20 21:00 11/11/20 08:18 Famotidine 20 Mg Tablet PO 20 mg BID LILLIAN Administration Gabapentin 300 mg 11/09/20 17:00 11/11/20 14:02 Gabapentin 300 Mg Capsule PO 300 mg TID LILLIAN Administration Hydrochlorothiazide 25 mg 11/09/20 18:00 11/11/20 08:18 Hydrochlorothiazide 25 Mg Tablet PO 25 mg DAILY LILLIAN Administration Cefazolin Sodium 1 gm/ Sodium 100 mls @ 200 mls/hr 11/09/20 18:18 11/11/20 14:40 Chloride IV Infused Q8HR LILLIAN Infusion Insulin Aspart 3 - 11 unit 11/09/20 21:38 11/11/20 16:55 Insulin Aspart 300 Unit/3 Ml Pen SUBQ 11 unit 0800,1200,1700,2100 LILLIAN Administration Protocol Insulin Glargine 30 unit 11/09/20 21:00 11/10/20 22:21 Insulin Glargine 300 Unit/3 Ml Pen SUBQ 30 unit QPM LILLIAN Administration Losartan Potassium 100 mg 11/09/20 18:00 11/11/20 08:19 Losartan 50 Mg Tablet PO 100 mg DAILY LILLIAN Administration Morphine Sulfate 2 mg 11/09/20 16:32 11/11/20 16:56 Morphine 2 Mg/Ml Carpuject IVP 2 mg Q2HR PRN Administration Pain 8 to 10 Nicotine 1 patch 11/09/20 17:36 11/11/20 14:00 Nicotine 14 Mg Patch TOP 1 patch DAILY LILLIAN Administration Oxycodone HCl 5 mg 11/09/20 16:32 11/09/20 23:26 Oxycodone 5 Mg Tablet PO 5 mg Q4HR PRN Administration Pain 5 to 7 Sodium Chloride 10 ml 11/09/20 16:32 11/11/20 14:00 Sodium Chloride Flush 0.9% 10 Ml Syringe IVP 10 ml PRN PRN Administration NEEDED PER PROVIDER ORDERS Sodium Chloride 10 ml 11/09/20 17:00 11/11/20 16:55 Sodium Chloride Flush 0.9% 10 Ml Syringe IVP 10 ml 0100,0900,1700 LILLIAN Administration Zolpidem Tartrate 5 mg 11/09/20 18:38 11/09/20 21:35 Zolpidem 5 Mg Tablet PO 5 mg QPM PRN Administration Insomnia - Lab Result Fish Bone Diagrams: 11/11/20 04:21 11/11/20 04:21 Subjective - Subjective Patient Reports: Other (Patient was resting comfortably in bed at time of exam. He denied any significant complaints.) Objective Vital Signs: Vital Signs - 24 hr 11/11/20 11/11/20 11/11/20 00:00 08:00 16:42 Temperature 36.7 C 36.6 C 36.7 C Heart Rate [ 66 64 65 Brachial] Respiratory 17 16 19 Rate Blood Pressure 149/80 H 148/77 H 133/77 H [Right Brachial artery] O2 Saturation 97 95 96 Oxygen O2 Source Room air I&O (Last 24 Hrs): Intake and Output Totals x24h 11/09/20 11/10/20 11/11/20 23:59 23:59 23:59 Intake Total 1270 5275 2830 Balance 1270 5275 2830 General: Alert, Oriented x3, No acute distress HEENT: PERRLA, EOMI Neck: Supple, No JVD Neuro: Alert, Non Focal, Oriented Times 3 Cardiovascular: Regular rate, Normal S1, Normal S2 Respiratory: Chest non-tender, No respiratory distress, Breath sounds nml Abdomen: Normal bowel sounds, Soft Extremities: No edema Skin: No rashes - Results Results: Laboratory Results WBC 6.6 x10^3/uL (4.8-10.8) 11/11/20 04:21 RBC 4.41 10^6/uL (4.70-6.10) L 11/11/20 04:21 Hgb 14.6 g/dL (14.0-18.0) 11/11/20 04:21 Hct 42.4 % (42.0-52.0) 11/11/20 04:21 MCV 96.1 fL (80.0-94.0) H 11/11/20 04:21 MCH 33.1 pg (27.0-31.0) H 11/11/20 04:21 MCHC 34.4 g/dL (32.0-36.0) 11/11/20 04:21 RDW 11.8 % (12.0-15.0) L 11/11/20 04:21 Plt Count 235 10^3/uL (130-450) 11/11/20 04:21 MPV 10.8 fL (7.4-11.4) 11/11/20 04:21 Neut # (Auto) 4.0 10^3/uL (1.5-6.6) 11/11/20 04:21 Lymph # (Auto) 1.6 10^3/uL (1.5-3.5) 11/11/20 04:21 [place] # (Auto) 0.8 10^3/uL (0.0-1.0) 11/11/20 04:21 Eos # (Auto) 0.2 10^3/uL (0.0-0.7) 11/11/20 04:21 Baso # (Auto) 0.1 10^3/uL (0.0-0.1) 11/11/20 04:21 Absolute Nucleated RBC 0.00 x10^3/uL 11/11/20 04:21 Nucleated RBC % 0.0 /100WBC 11/11/20 04:21 ESR 5 mm/Hr (0-20) 11/09/20 13:48 Sodium 135 mmol/L (135-145) 11/11/20 04:21 Potassium 4.0 mmol/L (3.5-5.0) 11/11/20 04:21 Chloride 98 mmol/L (101-111) L 11/11/20 04:21 Carbon Dioxide 27 mmol/L (21-32) 11/11/20 04:21 Anion Gap 10.0 (6-13) 11/11/20 04:21 BUN 14 mg/dL (6-20) 11/11/20 04:21 Creatinine 0.7 mg/dL (0.6-1.2) 11/11/20 04:21 Estimated GFR (MDRD) 116 (>89) 11/11/20 04:21 Glucose 169 mg/dL (70-100) H 11/11/20 04:21 POC Whole Bld Glucose 329 mg/dL (70 - 100) H 11/11/20 16:40 Estimat Average Glucose 249 mg/dL (70-100) H 11/10/20 05:25 Hemoglobin A1c % 10.3 % (4.27-6.07) H 11/10/20 05:25 Calcium 8.9 mg/dL (8.5-10.3) 11/11/20 04:21 Total Bilirubin 0.5 mg/dL (0.2-1.0) 11/09/20 13:48 AST 14 IU/L (10-42) 11/09/20 13:48 ALT 21 IU/L (10-60) 11/09/20 13:48 Alkaline Phosphatase 77 IU/L (42-121) 11/09/20 13:48 C-Reactive Protein < 1.0 mg/dL (0-1.0) 11/11/20 04:21 Total Protein 7.3 g/dL (6.7-8.2) 11/09/20 13:48 Albumin 4.1 g/dL (3.2-5.5) 11/09/20 13:48 Globulin 3.2 g/dL (2.1-4.2) 11/09/20 13:48 Albumin/Globulin Ratio 1.3 (1.0-2.2) 11/09/20 13:48 Nasal Adenovirus (PCR) NOT DETECTED 11/09/20 17:01 Nasal B. parapertussis DNA (PCR) NOT DETECTED 11/09/20 17:01 Nasal Coronavir 229E PCR NOT DETECTED 11/09/20 17:01 Nasal Coronavir HKU1 PCR NOT DETECTED 11/09/20 17:01 Nasal Coronavir NL63 PCR NOT DETECTED 11/09/20 17:01 Nasal Coronavir OC43 PCR NOT DETECTED 11/09/20 17:01 Nasal Enterovir/Rhinovir PCR NOT DETECTED 11/09/20 17:01 Nasal Influenza B PCR NOT DETECTED 11/09/20 17:01 Nasal Influenza A PCR NOT DETECTED 11/09/20 17:01 Nasal Parainfluen 1 PCR NOT DETECTED 11/09/20 17:01 Nasal Parainfluen 2 PCR NOT DETECTED 11/09/20 17:01 Nasal Parainfluen 3 PCR NOT DETECTED 11/09/20 17:01 Nasal Parainfluen 4 PCR NOT DETECTED 11/09/20 17:01 Nasal RSV (PCR) NOT DETECTED 11/09/20 17:01 Nasal B.pertussis DNA PCR NOT DETECTED 11/09/20 17:01 Nasal C.pneumoniae (PCR) NOT DETECTED 11/09/20 17:01 Joseph Human Metapneumo PCR NOT DETECTED 11/09/20 17:01 Nasal M.pneumoniae (PCR) NOT DETECTED 11/09/20 17:01 Nasal SARS-CoV-2 (PCR) NOT DETECTED 11/09/20 17:01 - Procedures Procedures: Procedures DETACHMENT AT LEFT 2ND TOE, COMPLETE, OPEN APPROACH (03/11/16) DETACHMENT AT LEFT 5TH TOE, COMPLETE, OPEN APPROACH (04/30/17) DETACHMENT AT RIGHT 1ST TOE, HIGH, OPEN APPROACH (10/20/16) DETACHMENT AT RIGHT 5TH TOE, COMPLETE, OPEN APPROACH (06/05/18) EXCIS DEBRIDE OF WOUND, INFECT, OR BURN (02/19/15) EXCISION OF RIGHT METATARSAL, OPEN APPROACH (06/05/18) RESECTION OF LEFT METATARSAL, OPEN APPROACH (01/05/19) VENOUS CATHETERIZATION NEC (02/19/15) Sepsis Event Note (H) - Evaluation Current Stage of Sepsis: Ruled out ABX Reporting Has patient been on IV antibiotics over the past 48 hours?: Yes
[2020-11-11] MEDS: INSULIN GLARGINE 300 UNIT/3 ML PEN SUBQ SCH (22:18)
[2020-11-11] MEDS: ZOLPIDEM 5 MG TABLET PO PRN (23:47)
[2020-11-12] MEDS: MORPHINE 2 MG/ML CARPUJECT IVP PRN ×3 (00:34→18:20)
[2020-11-12] MEDS: SODIUM CHLORIDE FLUSH 0.9% 10 ML SYRINGE IVP PRN ×4 (00:35→18:21)
[2020-11-12 05:07] LABS: BASOPHILS # (AUTO) 0.1 10^3/uL (0.0-0.1); BASOPHILS % (AUTO) 0.8 %; EOSINOPHILS # (AUTO) 0.3 10^3/uL (0.0-0.7); EOSINOPHILS % (AUTO) 3.4 %; HGB - HEMOGLOBIN 14.8 g/dL (14.0-18.0); LYMPHOCYTES # (AUTO) 1.4 10^3/uL (1.5-3.5); LYMPHOCYTES % (AUTO) 18.9 %; MEAN CORPUSCULAR HEMOGLOBIN 33.3 pg (27.0-31.0); MEAN CORPUSCULAR HGB CONC 34.8 g/dL (32.0-36.0); MEAN CORPUSCULAR VOLUME 95.5 fL (80.0-94.0); MEAN PLATELET VOLUME 10.7 fL (7.4-11.4); MONOCYTES % (AUTO) 13.4 %; NEUTROPHILS # (AUTO) 4.7 10^3/uL (1.5-6.6); NEUTROPHILS % (AUTO) 63.2 %; PLT - PLATELET COUNT 228 10^3/uL (130-450); RED BLOOD COUNT 4.45 10^6/uL (4.70-6.10); RED CELL DISTRIBUTION WIDTH 11.8 % (12.0-15.0); WHITE BLOOD COUNT 7.4 x10^3/uL (4.8-10.8)
[2020-11-12 05:25] LABS: BUN - BLOOD UREA NITROGEN 17 mg/dL (6-20); CARBON DIOXIDE - CO2 26 mmol/L (21-32); CHLORIDE 97 mmol/L (101-111); CREATININE 0.7 mg/dL (0.6-1.2); GLUCOSE 195 mg/dL (70-100)
[2020-11-12 05:30] LABS: CRP - C-REACTIVE PROTEIN < 1.0 mg/dL (0-1.0)
[2020-11-12] MEDS: ceFAZolin 1 GM in SODIUM CHLORIDE 0.9% MINIBAG 100 ML IV SCH ×3 (05:47→22:11)
[2020-11-12] MEDS: GABAPENTIN 300 MG CAPSULE PO SCH ×3 (05:56→22:06)
[2020-11-12] MEDS: ACETAMINOPHEN 325 MG TABLET PO PRN ×2 (05:56→18:21)
[2020-11-12] MEDS: INSULIN ASPART 300 UNIT/3 ML PEN SUBQ SCH ×4 (08:26→22:02)
[2020-11-12] MEDS: amLODIPine 5 MG TABLET PO SCH (08:27)
[2020-11-12] MEDS: LOSARTAN 50 MG TABLET PO SCH (08:27)
[2020-11-12] MEDS: FAMOTIDINE 20 MG TABLET PO SCH ×2 (08:27→22:06)
[2020-11-12] MEDS: ENOXAPARIN 40 MG/0.4 ML SYRINGE SUBQ SCH (08:28)
[2020-11-12] MEDS: hydroCHLOROthiazide 25 MG TABLET PO SCH (08:28)
[2020-11-12] MEDS: NICOTINE 14 MG PATCH TOP SCH (08:29)
[2020-11-12] MEDS: SODIUM CHLORIDE FLUSH 0.9% 10 ML SYRINGE IVP SCH ×3 (08:29→23:47)
--- NOTE | 2020-11-12 20:19 | PROVIDER PROGRESS NOTE ---
Assessment/Plan - Problem List (1) Diabetic foot infection Assessment/Plan: Patient is on cefazolin. Discussed the MRI findings with Dr. Alatorre. He believes 3 was inaccurate. He explains that there would need to be sinus tracking and worsening associated redness for there to be significant osteomyelitis. Furthermore that if that was the case indication would be to continue antibiotics. He recommended putting the patient on antibiotics and for him to follow-up outpatient in the week. We will continue IV antibiotic for today and discharge the patient tomorrow on Bactrim twice daily for 7 days. The patient also has a cold strip roller and plans to follow-up with the clinic after discharge. (2) HTN (hypertension) Qualifiers: Assessment/Plan: On Lantus 30 units subcu every afternoon. Sliding scale insulin and Accu-Cheks. (3) Type 2 diabetes mellitus Assessment/Plan: On Lantus 30 units subcu every afternoon. Sliding scale insulin and Accu-Cheks. - Current Meds Current Meds: Current Medications Generic Name Dose Route Start Last Admin Trade Name Freq PRN Reason Stop Dose Admin Acetaminophen 650 mg 11/09/20 16:32 11/12/20 18:21 Acetaminophen 325 Mg Tablet PO 650 mg Q4HR PRN Administration Pain 1 to 4 Amlodipine Besylate 5 mg 11/09/20 16:40 11/12/20 08:27 Amlodipine 5 Mg Tablet PO 5 mg DAILY LILLIAN Administration Enoxaparin Sodium 40 mg 11/10/20 09:00 11/12/20 08:28 Enoxaparin 40 Mg/0.4 Ml Syringe SUBQ 40 mg DAILY LILLIAN Administration Famotidine 20 mg 11/09/20 21:00 11/12/20 08:27 Famotidine 20 Mg Tablet PO 20 mg BID LILLIAN Administration Gabapentin 300 mg 11/09/20 17:00 11/12/20 14:25 Gabapentin 300 Mg Capsule PO Not Given TID LILLIAN Hydrochlorothiazide 25 mg 11/09/20 18:00 11/12/20 08:28 Hydrochlorothiazide 25 Mg Tablet PO 25 mg DAILY LILLIAN Administration Cefazolin Sodium 1 gm/ Sodium 100 mls @ 200 mls/hr 11/09/20 18:18 11/12/20 14:55 Chloride IV Infused Q8HR LILLIAN Infusion Insulin Aspart 3 - 11 unit 11/09/20 21:38 11/12/20 16:59 Insulin Aspart 300 Unit/3 Ml Pen SUBQ 11 unit 0800,1200,1700,2100 LILLIAN Administration Protocol Insulin Glargine 30 unit 11/09/20 21:00 11/11/20 22:18 Insulin Glargine 300 Unit/3 Ml Pen SUBQ 30 unit QPM LILLIAN Administration Losartan Potassium 100 mg 11/09/20 18:00 11/12/20 08:27 Losartan 50 Mg Tablet PO 100 mg DAILY LILLIAN Administration Morphine Sulfate 2 mg 11/09/20 16:32 11/12/20 18:20 Morphine 2 Mg/Ml Carpuject IVP 2 mg Q2HR PRN Administration Pain 8 to 10 Nicotine 1 patch 11/09/20 17:36 11/12/20 08:29 Nicotine 14 Mg Patch TOP 1 patch DAILY LILLIAN Administration Oxycodone HCl 5 mg 11/09/20 16:32 11/09/20 23:26 Oxycodone 5 Mg Tablet PO 5 mg Q4HR PRN Administration Pain 5 to 7 Sodium Chloride 10 ml 11/09/20 16:32 11/12/20 18:21 Sodium Chloride Flush 0.9% 10 Ml Syringe IVP 10 ml PRN PRN Administration NEEDED PER PROVIDER ORDERS Sodium Chloride 10 ml 11/09/20 17:00 11/12/20 17:00 Sodium Chloride Flush 0.9% 10 Ml Syringe IVP 10 ml 0100,0900,1700 LILLIAN Administration Zolpidem Tartrate 5 mg 11/09/20 18:38 11/11/20 23:47 Zolpidem 5 Mg Tablet PO 5 mg QPM PRN Administration Insomnia - Lab Result Fish Bone Diagrams: 11/12/20 04:16 11/12/20 04:16 Subjective - Subjective Patient Reports: Other (Patient was resting comfortably in bed at time of exam. He denied any significant complaints.) Objective Vital Signs: Vital Signs - 24 hr 11/12/20 11/12/20 11/12/20 00:00 08:00 16:00 Temperature 36.7 C 36.6 C 36.2 C L Heart Rate [ 60 61 55 L Brachial] Respiratory 18 16 18 Rate Blood Pressure 136/79 H 140/71 H 134/70 H [Right Brachial artery] O2 Saturation 96 94 98 Oxygen O2 Source Room air I&O (Last 24 Hrs): Intake and Output Totals x24h 0111/11/20 11/12/20 23:59 23:59 23:59 Intake Total 5275 3430 2205 Balance 5275 3430 2205 General: Alert, Oriented x3, No acute distress HEENT: PERRLA, EOMI Neck: Supple, No JVD Neuro: Alert, Non Focal, Oriented Times 3 Cardiovascular: Regular rate, Normal S1, Normal S2 Respiratory: Chest non-tender, No respiratory distress, Breath sounds nml Abdomen: Normal bowel sounds, Soft Extremities: No clubbing, No cyanosis, No edema Skin: No rashes - Results Results: Laboratory Results WBC 7.4 x10^3/uL (4.8-10.8) 11/12/20 04:16 RBC 4.45 10^6/uL (4.70-6.10) L 11/12/20 04:16 Hgb 14.8 g/dL (14.0-18.0) 11/12/20 04:16 Hct 42.5 % (42.0-52.0) 11/12/20 04:16 MCV 95.5 fL (80.0-94.0) H 11/12/20 04:16 MCH 33.3 pg (27.0-31.0) H 11/12/20 04:16 MCHC 34.8 g/dL (32.0-36.0) 11/12/20 04:16 RDW 11.8 % (12.0-15.0) L 11/12/20 04:16 Plt Count 228 10^3/uL (130-450) 11/12/20 04:16 MPV 10.7 fL (7.4-11.4) 11/12/20 04:16 Neut # (Auto) 4.7 10^3/uL (1.5-6.6) 11/12/20 04:16 Lymph # (Auto) 1.4 10^3/uL (1.5-3.5) L 11/12/20 04:16 [place] # (Auto) 1.0 10^3/uL (0.0-1.0) 11/12/20 04:16 Eos # (Auto) 0.3 10^3/uL (0.0-0.7) 11/12/20 04:16 Baso # (Auto) 0.1 10^3/uL (0.0-0.1) 11/12/20 04:16 Absolute Nucleated RBC 0.00 x10^3/uL 11/12/20 04:16 Nucleated RBC % 0.0 /100WBC 11/12/20 04:16 ESR 5 mm/Hr (0-20) 11/09/20 13:48 Sodium 133 mmol/L (135-145) L 11/12/20 04:16 Potassium 4.1 mmol/L (3.5-5.0) 11/12/20 04:16 Chloride 97 mmol/L (101-111) L 11/12/20 04:16 Carbon Dioxide 26 mmol/L (21-32) 11/12/20 04:16 Anion Gap 10.0 (6-13) 11/12/20 04:16 BUN 17 mg/dL (6-20) 11/12/20 04:16 Creatinine 0.7 mg/dL (0.6-1.2) 11/12/20 04:16 Estimated GFR (MDRD) 116 (>89) 11/12/20 04:16 Glucose 195 mg/dL (70-100) H 11/12/20 04:16 POC Whole Bld Glucose 426 mg/dL (70 - 100) H 11/12/20 16:40 Estimat Average Glucose 249 mg/dL (70-100) H 11/10/20 05:25 Hemoglobin A1c % 10.3 % (4.27-6.07) H 11/10/20 05:25 Calcium 9.0 mg/dL (8.5-10.3) 11/12/20 04:16 Total Bilirubin 0.5 mg/dL (0.2-1.0) 11/09/20 13:48 AST 14 IU/L (10-42) 11/09/20 13:48 ALT 21 IU/L (10-60) 11/09/20 13:48 Alkaline Phosphatase 77 IU/L (42-121) 11/09/20 13:48 C-Reactive Protein < 1.0 mg/dL (0-1.0) 11/12/20 04:16 Total Protein 7.3 g/dL (6.7-8.2) 11/09/20 13:48 Albumin 4.1 g/dL (3.2-5.5) 11/09/20 13:48 Globulin 3.2 g/dL (2.1-4.2) 11/09/20 13:48 Albumin/Globulin Ratio 1.3 (1.0-2.2) 11/09/20 13:48 Nasal Adenovirus (PCR) NOT DETECTED 11/09/20 17:01 Nasal B. parapertussis DNA (PCR) NOT DETECTED 11/09/20 17:01 Nasal Coronavir 229E PCR NOT DETECTED 11/09/20 17:01 Nasal Coronavir HKU1 PCR NOT DETECTED 11/09/20 17:01 Nasal Coronavir NL63 PCR NOT DETECTED 11/09/20 17:01 Nasal Coronavir OC43 PCR NOT DETECTED 11/09/20 17:01 Nasal Enterovir/Rhinovir PCR NOT DETECTED 11/09/20 17:01 Nasal Influenza B PCR NOT DETECTED 11/09/20 17:01 Nasal Influenza A PCR NOT DETECTED 11/09/20 17:01 Nasal Parainfluen 1 PCR NOT DETECTED 11/09/20 17:01 Nasal Parainfluen 2 PCR NOT DETECTED 11/09/20 17:01 Nasal Parainfluen 3 PCR NOT DETECTED 11/09/20 17:01 Nasal Parainfluen 4 PCR NOT DETECTED 11/09/20 17:01 Nasal RSV (PCR) NOT DETECTED 11/09/20 17:01 Nasal B.pertussis DNA PCR NOT DETECTED 11/09/20 17:01 Nasal C.pneumoniae (PCR) NOT DETECTED 11/09/20 17:01 Joseph Human Metapneumo PCR NOT DETECTED 11/09/20 17:01 Nasal M.pneumoniae (PCR) NOT DETECTED 11/09/20 17:01 Nasal SARS-CoV-2 (PCR) NOT DETECTED 11/09/20 17:01 - Procedures Procedures: Procedures DETACHMENT AT LEFT 2ND TOE, COMPLETE, OPEN APPROACH (03/11/16) DETACHMENT AT LEFT 5TH TOE, COMPLETE, OPEN APPROACH (04/30/17) DETACHMENT AT RIGHT 1ST TOE, HIGH, OPEN APPROACH (10/20/16) DETACHMENT AT RIGHT 5TH TOE, COMPLETE, OPEN APPROACH (06/05/18) EXCIS DEBRIDE OF WOUND, INFECT, OR BURN (02/19/15) EXCISION OF RIGHT METATARSAL, OPEN APPROACH (06/05/18) RESECTION OF LEFT METATARSAL, OPEN APPROACH (01/05/19) VENOUS CATHETERIZATION NEC (02/19/15) Sepsis Event Note (H) - Evaluation Current Stage of Sepsis: Ruled out ABX Reporting Has patient been on IV antibiotics over the past 48 hours?: Yes
[2020-11-12] MEDS: INSULIN GLARGINE 300 UNIT/3 ML PEN SUBQ SCH (22:02)
[2020-11-12] MEDS: ZOLPIDEM 5 MG TABLET PO PRN (23:47)
[2020-11-13] MEDS: SODIUM CHLORIDE FLUSH 0.9% 10 ML SYRINGE IVP PRN ×4 (00:44→06:22)
[2020-11-13] MEDS: MORPHINE 2 MG/ML CARPUJECT IVP PRN ×2 (00:44→03:54)
[2020-11-13] MEDS: ACETAMINOPHEN 325 MG TABLET PO PRN (03:54)
[2020-11-13 05:20] LABS: BASOPHILS # (AUTO) 0.1 10^3/uL (0.0-0.1); EOSINOPHILS # (AUTO) 0.2 10^3/uL (0.0-0.7); EOSINOPHILS % (AUTO) 3.4 %; HGB - HEMOGLOBIN 14.7 g/dL (14.0-18.0); LYMPHOCYTES # (AUTO) 1.3 10^3/uL (1.5-3.5); MEAN CORPUSCULAR HEMOGLOBIN 33.4 pg (27.0-31.0); MEAN CORPUSCULAR HGB CONC 34.7 g/dL (32.0-36.0); MEAN CORPUSCULAR VOLUME 96.4 fL (80.0-94.0); MONOCYTES # (AUTO) 1.1 10^3/uL (0.0-1.0); NEUTROPHILS # (AUTO) 4.4 10^3/uL (1.5-6.6); NEUTROPHILS % (AUTO) 62.2 %; PLT - PLATELET COUNT 207 10^3/uL (130-450); RED CELL DISTRIBUTION WIDTH 11.8 % (12.0-15.0); WHITE BLOOD COUNT 7.1 x10^3/uL (4.8-10.8)
[2020-11-13 05:36] LABS: BUN - BLOOD UREA NITROGEN 19 mg/dL (6-20); CALCIUM 8.7 mg/dL (8.5-10.3); CARBON DIOXIDE - CO2 26 mmol/L (21-32); CHLORIDE 99 mmol/L (101-111); CREATININE 0.8 mg/dL (0.6-1.2); GLUCOSE 182 mg/dL (70-100)
[2020-11-13 05:38] LABS: CRP - C-REACTIVE PROTEIN < 1.0 mg/dL (0-1.0)
[2020-11-13] MEDS: ceFAZolin 1 GM in SODIUM CHLORIDE 0.9% MINIBAG 100 ML IV SCH (05:48)
[2020-11-13] MEDS: GABAPENTIN 300 MG CAPSULE PO SCH (05:54)
--- NOTE | 2020-11-13 06:45 | DISCHARGE SUMMARY ---
Discharge Summary Admit Date: 11/09/20 Discharge Date: 11/13/20 Discharging Provider: Roly Paiz Primary Care Provider: Tirso Tejada Code Status: Attempt Resuscitation Condition at Discharge: Stable Discharge Disposition: 01 Home, Self Care - DIAGNOSES Admission Diagnoses: Diabetic foot infection Diabetes type 2 uncontrolled Hypertension Discharge Diagnoses with Status of Each Condition: Diabetic foot infection: Improving. Bactrim twice daily for 7 days. Diabetes type 2 uncontrolled: Chronic. Continue home medications Hypertension: Chronic. Continue home medications. - HPI History of Present Illness: Per HPI: Patient is a 55-year-old gentleman with a past medical history significant for uncontrolled insulin-dependent type 2 diabetes, hypertension, tobacco abuse, pe ripheral neuropathy, hyperlipidemia and recurrent diabetic foot infections with multiple amputations including bilateral foot toes, who presents to the emergency department today with chief complaint of left fourth toe erythema and infection. pt report he had 1 day of redness and pain to fourth left toe. Patient toe became red yesterday. He denies fever, chill. The toe currently has no drainage, but it has redness and swelling with little pain. pt report he had infection spread quickly on last time, that is why he came to hospital. pt denies current cigarette smoking but he ask nicotine patch. Xray of left foot and toe reveals no milvia evidence of osteomyelitis. Routine laboratory tests that show glucose 294, WBC 10.9, CRP 2.2. Orthopedic surgeon was called by the ER for consultation. Given above medical condition patient was consulted for medical team for admission. Discussed the care goal with the patient, patient requests full code - HOSPITAL COURSE Hospital Course: Patient was treated with cefazolin during his 3-day stay in the hospital. His initial white blood cell count was 10.9 but then was in the normal range during the rest of his stay. He was afebrile. There was no growth on blood cultures obtained on 11/09/20. He underwent an MRI of the left foot on 11/11/2020. He reported focal marrow signal changes involving the fourth toe proximal phalanx near the PIP joint suspicious for osteomyelitis. Adjacent soft tissue swelling and ulcerated appearance. This was discussed with Dr. Bain the orthopedic surgeon who did not think the patient had osteomyelitis. He recommended antibiotics For the redness around the toe and follow-up in the outpatient setting. The patient was placed on Bactrim DS 1 tab p.o. twice daily for 7 days. He was instructed to follow-up with orthopedics and/or his drum worker in 7 days. He was also instructed to follow-up with his primary care physician in 7 days for a recheck of his BMP to monitor his potassium and creatinine levels. Patient's hemoglobin A1c is 10.3. His blood sugar fluctuated between 200 and 400 while in the hospital. He is on Lantus 30 units subcu nightly. He is also on Me tformin 1000 mg p.o. twice daily and Victoza. He was maintained on sliding scale insulin as well while in the hospital. He also is on a sliding scale at home. He is to follow-up with his primary care physician for adjustment and his diabetic regiment. - ALLERGIES Allergies/Adverse Reactions: Allergies Allergy/AdvReac Type Severity Reaction Status Date / Time hydromorphone [From Dilaudid] Allergy Itching Verified 11/09/20 13:15 - MEDICATIONS Home Medications: Ambulatory Orders Medication Instructions Recorded Confirmed Insulin Glargine,Hum.rec.anlog 30 units SQ QPM 03/07/15 11/09/20 [Lantus Solostar] Gabapentin 300 - 600 mg PO TID 10/05/16 11/09/20 Atorvastatin Calcium 10 mg PO DAILY 07/31/17 11/09/20 Liraglutide [Victoza 2-Florian] 1.8 mg SUBQ DAILY 05/13/18 11/09/20 metFORMIN [Glucophage] 1,000 mg PO BID 09/29/18 11/09/20 amLODIPine [Norvasc] 5 mg PO DAILY 12/28/18 11/09/20 Losartan/Hydrochlorothiazide 1 tab PO DAILY 01/24/19 11/09/20 [Losartan-Hctz 100-25 mg Tab] Insulin Aspart [NovoLOG] 1 - 12 units SQ TIDWM 05/08/20 11/09/20 Sulfamethox/Trimeth 800/160 1 each PO BID 7 Days #14 tablet 11/13/20 [Bactrim Ds 800/160] - PHYSICAL EXAM AT DISCHARGE General Appearance: positive: No acute distress, Alert Eyes Bilateral: positive: PERRL, EOMI ENT: positive: No signs of dehydration Neck: positive: No JVD, Trachea midline Respiratory: positive: Chest non-tender, No respiratory distress, Breath sounds nml Cardiovascular: positive: Regular rate & rhythm, No murmur Abdomen: positive: Non-tender, No organomegaly, Nml bowel sounds, No distention Back: positive: Nml inspection Skin: positive: Dry, Other (Left fourth toe redness which is improved) Extremities: positive: Non-tender, No pedal edema, Other (Amputation of toes on the right foot. Amputation of 3 toes on the left foot.) Neurologic/Psychiatric: positive: Oriented x3, Mood/affect nml - LABS Result Diagrams: 11/13/20 05:06 11/13/20 05:06 - SEPSIS Current Stage of Sepsis: Ruled out - FOLLOW UP Follow Up: With primary care physician within 7 days. With orthopedic surgery or drum worker within 7 days. - TIME SPENT Time Spent in Discharge (Minutes): 25
--- NOTE | 2020-11-13 06:47 | Discharge Plan ---
Discharge Plan Problem Reviewed?: Yes Disposition: Home, Self Care Condition: Stable Prescriptions: Sulfamethox/Trimeth 800/160 [Bactrim Ds 800/160] 1 each PO BID 7 Days #14 tablet Diet: Diabetic Activity Restrictions: Activity as Tolerated Shower Restrictions: No Driving Restrictions: No Weight Bearing: Full Weight Health Concerns: You had presented with complaint of redness and mild pain on your left foot and toe on the left foot. You had concern for possible osteomyelitis due to a significant history of recurrent diabetic foot infections and multiple amputations. X-ray of the left foot and toe did not reveal any evidence of osteomyelitis. MRI of the foot raised possible suspicion but was not a good princess dy. The MRI was discussed with orthopedics who did not think you had osteomyelitis. As a result you are being discharged home with 1 week prescription of Bactrim twice daily for the redness around the toe. You are to follow-up with orthopedic outpatient and or your rn traveling in a week. Follow-up with your primary care physician within 5 to 7 days. It is expected that he would check BMP. This plan was explained to you and you expressed understanding. Plan of Treatment: You had presented with complaint of redness and mild pain on your left foot and toe on the left foot. You had concern for possible osteomyelitis due to a significant history of recurrent diabetic foot infections and multiple amputations. X-ray of the left foot and toe did not reveal any evidence of osteomyelitis. MRI of the foot raised possible suspicion but was not a good study. The MRI was discussed with orthopedics who did not think you had osteomyelitis. As a result you are being discharged home with 1 week prescription of Bactrim twice daily for the redness around the toe. You are to follow-up with orthopedic outpatient and or your rn traveling in a week. Follow-up with your primary care physician within 5 to 7 days. It is expected that he would check BMP. This plan was explained to you and you expressed understanding. Care Goals: You had presented with complaint of redness and mild pain on your left foot and toe on the left foot. You had concern for possible osteomyelitis due to a significant history of recurrent diabetic foot infections and multiple amputations. X-ray of the left foot and toe did not reveal any evidence of osteomyelitis. MRI of the foot raised possible suspicion but was not a good study. The MRI was discussed with orthopedics who did not think you had osteomyelitis. As a result you are being discharged home with 1 week prescription of Bactrim twice daily for the redness around the toe. You are to follow-up with orthopedic outpatient and or your rn traveling in a week. Follow-up with your primary care physician within 5 to 7 days. It is expected that he would check BMP. This plan was explained to you and you expressed understanding. Assessment: You had presented with complaint of redness and mild pain on your left foot and toe on the left foot. You had concern for possible osteomyelitis due to a significant history of recurrent diabetic foot infections and multiple amputations. X-ray of the left foot and toe did not reveal any evidence of osteomyelitis. MRI of the foot raised possible suspicion but was not a good study. The MRI was discussed with orthopedics who did not think you had osteomyelitis. As a result you are being discharged home with 1 week prescription of Bactrim twice daily for the redness around the toe. You are to follow-up with orthopedic outpatient and or your rn traveling in a week. Follow-up with your primary care physician within 5 to 7 days. It is expected that he would check BMP. This plan was explained to you and you expressed understanding. No Smoking: If you smoke, Please STOP! Call for help. Follow-up with: Tirso Tejada [Primary Care Provider] -
[2020-11-13 07:47] VITALS: BP 122/73
[2020-11-13] MEDS: INSULIN ASPART 300 UNIT/3 ML PEN SUBQ SCH (07:50)
== END 2020-11-13 08:45 | disposition home or self-care (01) | DRG 639 ==
LOC: ED 13:12 → MS2 16:32
PROVIDERS: ADMIT Nurse Practitioner Gerontology; ATTEND Internal Medicine
DX: E11.628 Type 2 diabetes mellitus with other skin complications (principal); L03.116 Cellulitis of left lower limb; L03.032 Cellulitis of left toe; E11.65 Type 2 diabetes mellitus with hyperglycemia; E11.42 Type 2 diabetes mellitus with diabetic polyneuropathy; E78.00 Pure hypercholesterolemia, unspecified; Z20.822 Contact with and (suspected) exposure to COVID-19; I10 Essential (primary) hypertension; E78.5 Hyperlipidemia, unspecified; F17.200 Nicotine dependence, unspecified, uncomplicated; Z79.4 Long term (current) use of insulin; Z79.899 Other long term (current) drug therapy; Z89.412 Acquired absence of left great toe; Z89.422 Acquired absence of other left toe(s); Z89.421 Acquired absence of other right toe(s); Z72.89 Other problems related to lifestyle
CPT/HCPCS: 36415; 73630; 73718; 80048; 80053; 83036; 85025; 85651; 86140; 87040; 87631; 96365; 96375; 96376; 99285; A9270; J0690; J1650; J1815; 0202U; 90686

== ENCOUNTER 2021-02-01 07:00 | Outpatient (CLI) | payer MEDICARE, MEDICAID ==
--- NOTE | 2021-02-01 14:37 | XRAY Report ---
PROCEDURE: Foot 3 View LT INDICATIONS: LEFT FOOT PAIN. Concern for osteomyelitis TECHNIQUE: 3 views of the foot were acquired. COMPARISON: 11/01/2020 FINDINGS: No acute fracture identified. There is a dictation of the second and fifth toe at the level of the di stal metatarsals as before. There is interval lytic destruction of the fourth toe middle and proximal phalanx at the PIP joint suggestive of septic arthritis. Deformity of the third and fourth metatarsa l heads are unchanged. IMPRESSION: Interval lytic destruction of fourth toe proximal and middle phalanges at the PIP joint. This is high ly concerning for osteomyelitis/septic arthritis and new since 11/01/2020. Reviewed by: Lennox Lopez MD on 02/01/2021 2:36 PM PDT Approved by: Lennox Lopez MD on 02/01/2021 2:36 PM PDT Station ID: [id number]
== END 2021-02-01 23:59 | disposition home or self-care (01) ==
LOC: DI.N 07:00
PROVIDERS: ATTEND Orthopaedic Surgery
DX: M89.8X7 Other specified disorders of bone, ankle and foot (principal)

== ENCOUNTER 2021-02-02 07:47 | Outpatient (CLI) | payer OTHER, MEDICARE | END 2021-02-02 07:48 | disposition home or self-care (01) | LOC: LAB 07:47 | PROVIDERS: ATTEND Orthopaedic Surgery | DX: Z01.812 Encounter for preprocedural laboratory examination (principal); Z20.822 Contact with and (suspected) exposure to COVID-19 ==

== ENCOUNTER 2021-02-07 06:12 | Day surgery (SDC) | payer MEDICARE, MEDICAID ==
--- OUTSIDE RECORDS SUMMARY | 2021-02-07 06:15 | EXTERNAL MEDICAL SUMMARY RPT | Continuity of Care Document ---
:1965 Demographics Phone Unavailable Preferred Language Unknown Marital Status Unknown Advent Affiliation Unknown Race Unknown Ethnic Group Unknown Author Organization [facility] Address [address] [phone] Phone Social History date description facility [id number]
[2021-02-07] MEDS ORDERED: GABAPENTIN 400 MG CAPSULE ONE (06:24)
[2021-02-07] MEDS ORDERED: ceFAZolin 2 GM/50 ML 2 GM/50 ML BAG IV ONE (06:24)
[2021-02-07] MEDS ORDERED: CELECOXIB 100 MG CAPSULE PO ONE (06:24)
[2021-02-07] MEDS ORDERED: ACETAMINOPHEN 1,000 MG/100 ML 100 ML IV ONE (06:25)
[2021-02-07] MEDS ORDERED: LACTATED RINGERS 1,000 ML IV ONE ×2 (06:45→08:27)
[2021-02-07] MEDS ORDERED: BACITRACIN ZINC OINT 1 PACKET TOP ONE (06:59)
[2021-02-07] MEDS ORDERED: BUPIVACAINE 0.5% PF 30 ML VIAL ONE (07:00)
[2021-02-07] MEDS ORDERED: LIDOCAINE MPF 2%-EPI 1:200000 20 ML VIAL ONE (07:00)
[2021-02-07] MEDS ORDERED: PROPOFOL 200 MG/20 ML VIAL IVP ONE (07:14)
[2021-02-07] MEDS ORDERED: MIDAZOLAM 2 MG/2 ML VIAL ONE (07:15)
[2021-02-07] MEDS ORDERED: fentaNYL 100 MCG/2 ML VIAL ONE ×2 (07:15→08:18)
[2021-02-07] MEDS ORDERED: ONDANSETRON 4 MG/2 ML VIAL IVP PRN (07:20)
[2021-02-07] MEDS ORDERED: ePHEDrine 50 MG/ML VIAL IVP PRN (07:20)
[2021-02-07] MEDS ORDERED: NALOXONE 0.4 MG/ML VIAL IVP PRN (07:20)
[2021-02-07] MEDS ORDERED: HYDROmorphone 0.5 MG/0.5 ML SYRINGE IVP PRN (07:20)
[2021-02-07] MEDS ORDERED: ATROPINE ABBOJECT 1 MG/10 ML SYRINGE IVP PRN (07:20)
[2021-02-07] MEDS ORDERED: MORPHINE 2 MG/ML CARPUJECT IVP PRN (07:20)
[2021-02-07] MEDS ORDERED: fentaNYL 100 MCG/2 ML VIAL IVP PRN (07:20)
[2021-02-07] MEDS ORDERED: METOCLOPRAMIDE 10 MG/2 ML VIAL IVP PRN (07:20)
--- NOTE | 2021-02-07 07:21 | ANESTHESIA ---
Pre-Anesthesia VS, & Labs - Diagnosis chronic osteomyelitis, L 4th toe - Procedure L 4th toe digit amputation Vital Signs: Temp Pulse Resp BP Pulse Ox 36.6 C 76 16 139/79 H 97 02/07/21 06:47 02/07/21 06:47 02/07/21 06:47 02/07/21 06:47 02/07/21 06:47 Height: 6 ft 3 in Weight (kg): 88.7 kg Body Mass Index: 24.4 BMI Classification: Healthy weight - NPO >8 hours - Lab Results Current Lab Results: Laboratory Tests 02/07/21 06:58: POC Whole Bld Glucose 195 H Lab results reviewed: Yes Home Medications and Allergies Home Medications: Ambulatory Orders Gabapentin [Neurontin] 1,200 mg PO BID 02/05/21 Insulin Aspart [NovoLOG] 0 unit SUBQ TIDWM 02/05/21 Losartan Potassium [Cozaar] 100 mg PO DAILY 02/05/21 Sildenafil Citrate [Sildenafil] 5 - 20 mg PO QPM PRN 02/05/21 Atorvastatin [Lipitor] 0 mg PO DAILY 02/07/21 Insulin Glargine,Hum.rec.anlog [Lantus Solostar] 30 units SQ QPM 03/07/15 Liraglutide [Victoza 2-Florian] 1.8 mg SUBQ DAILY 05/13/18 metFORMIN [Glucophage] 1,000 mg PO BID 09/29/18 amLODIPine [Norvasc] 10 mg PO BID 12/28/18 Gabapentin [Neurontin] 1,200 mg PO BID 02/05/21 Insulin Aspart [NovoLOG] 0 unit SUBQ TIDWM 02/05/21 Losartan Potassium [Cozaar] 100 mg PO DAILY 02/05/21 Sildenafil Citrate [Sildenafil] 5 - 20 mg PO QPM PRN 02/05/21 Atorvastatin [Lipitor] 0 mg PO DAILY 02/07/21 Allergies/Adverse Reactions: Allergies Allergy/AdvReac Type Severity Reaction Status Date / Time hydromorphone [From Dilaudid] Allergy Rash Verified 02/07/21 07:03 Anes History & Medical History - Anesthetic History Anesthesia Complications: reports: No previous complications Family history of Anesthesia Complications: Denies Family history of Malignant Hyperthermia: Denies - Medical History Cardiovascular: reports: Hypertension, High cholesterol Pulmonary: reports: None Gastrointestinal: reports: None Urinary: reports: None Neuro: reports: Peripheral neuropathy Musculoskeletal: reports: Other Endocrine/Autoimmune: reports: Type 2 diabetes Blood Disorders: reports: None Skin: reports: None Smoking Status: Former smoker - Surgical History General: reports: Appendectomy Orthopedic: reports: Amputation Exam General: Alert, Oriented x3, Cooperative Dental: Partials Upper Mouth Opening: Greater than 4 Fingerbreadths Neck Mobility: Normal Mallampati classification: II Thyromental Distance: 4-6 cm Respiratory: Lungs clear, Normal breath sounds, No respiratory distress Cardiovascular: Regular rate Neurological: Normal speech Mental/Cognitive Status: Alert/Oriented X3, Normal for patient Cognitive Status: Within normal limits Plan Anesthesia Type: General (backup), MAC, Other Block (ankle per MD) Consent for Procedure(s) Verified and Reviewed: Yes Code Status: Attempt Resuscitation ASA classification: 3-Severe systemic disease Is this case an emergency?: No
[2021-02-07] MEDS ORDERED: LIDOCAINE-MPF 1% 30 ML VIAL ONE (07:27)
[2021-02-07] MEDS ORDERED: LIDOCAINE 1% 50 ML MDV SUBQ ONE (07:50)
[2021-02-07] MEDS ORDERED: BUPIVACAINE 0.5% PF 30 ML VIAL INFIL ONE (07:51)
[2021-02-07] MEDS ORDERED: LACTATED RINGERS 1,000 ML IV SCH (08:00)
[2021-02-07] MEDS ORDERED: oxyCODONE 5 MG TABLET PO PRN (08:17)
[2021-02-07] MEDS ORDERED: KETOROLAC 15 MG/ML VIAL IVP STA (08:17)
--- NOTE | 2021-02-07 08:19 | OPERATIVE REPORT ---
Operative Report - General Procedure Date: 02/07/21 Planned Procedure: Amputation left fourth toe at the metatarsophalangeal joint Pre-Op Diagnosis: Chronic osteomyelitis left fourth toe associated with diabetes mellitus Procedure Performed: Amputation left fourth toe at the metatarsophalangeal joint Post Op Diagnosis: Same as preoperative diagnosis - Procedure Note Primary Surgeon: Kirk Alatorre MD Secondary Surgeon: Jesse LEWIS Anesthesia Provider: Isabella Clements CRNA Anesthesia Technique: Moderate sedation, Regional block Pathology: Amputated left fourth toe sent to pathology Estimated Blood Loss (mL): 3 Indications: This is a 55-year-old gentleman with diabetes mellitus, peripheral neuropathy, ulceration over the dorsum of the left fourth toe that has healed but has resulted in some pain, deformity and intermittent drainage despite several courses of antibiotics. His history is 1 that has had a transmetatarsal amputation to the opposite right foot. He has had 2 metatarsal ray amputations to his left foot, second and fifth.His routine x-rays show a lytic process involving the proximal interphalangeal joint of the left fourth toe with destruction of the distal end of the proximal phalanx. Is probably started as a septic arthritis and advanced into bone leading to chronic osteomyelitis. Findings: There is no sign of any active infection at the amputation site. There seemed to be reasonable vascularity by visualization at the amputation site. Complications: None - Other Other Information/Narrative: The patient was brought to the operating room table, placed in the supine position. Sedation was provided. The left lower extremity was prepped and draped in a sterile manner in the usual fashion using Betadine. There was no open wounds or active infection about the left fourth toe. A timeout procedure was performed by the entire operating room team and all were in agreement. The surgeon provided the regional anesthesia, blocking the sural nerve just, superficial peroneal nerve subcutaneously. The posterior tibial nerve was blocked 2 fingerbreadths proximal to the tip of the medial malleolus, tangential to the Achilles tendon and perpendicular to the distal medial tibia. In addition a distal metatarsal block was performed. This was all performed with a 50-50 mixture of 1% lidocaine and half percent Marcaine without epinephrine. The injection was performed using a 25-gauge inch and a half sterile needle. A total of about 25 cc of local anesthetic was utilized for all of the blocks. After satisfactory anesthesia was achieved, a dorsal longitudinal incision, racquet shaped was placed about the metatarsophalangeal joint of the left fourth toe. The incision was carried directly down to extensor tendon, capsule and collateral ligaments going from superficial to deep, exposing the metatarsophalangeal joint which was severed of all of its tendons, collateral ligaments and capsule. The left fourth toe was removed en bloc, sent to pathology. No tourniquet was utilized during the procedure. There was bleeding at the operative site. The wound was irrigated. The wound was closed with 4-0 nylon using simple and Allogower sutures. The wound edges approximated well, bacitracin, Xeroform fluffs and a mild compression dressing was applied to the left forefoot. He received 2 g of Ancef intravenously prior to the incision and tolerated the procedure well.
[2021-02-07] MEDS ORDERED: oxyCODONE 5 MG TABLET PO ONE (08:28)
[2021-02-07] MEDS ORDERED: KETOROLAC 30 MG/ML VIAL IVP ONE (08:28)
[2021-02-07] MEDS ORDERED: KETOROLAC 30 MG/ML VIAL ONE ×2 (09:02→09:50)
[2021-02-07] MEDS ORDERED: ROPIVACAINE 0.5% PF 20 ML AMPULE ONE (09:14)
[2021-02-07] MEDS ORDERED: LIDOCAINE-MPF 2% 5 ML VIAL ONE (09:14)
[2021-02-07 09:48] VITALS: BP 132/68
[2021-02-07] MEDS ORDERED: DEXAMETHASONE 4 MG/ML VIAL ONE (09:50)
[2021-02-07] MEDS ORDERED: ONDANSETRON 4 MG/2 ML VIAL ONE (09:50)
--- NOTE | 2021-02-07 09:57 | ANESTHESIA POST OP EVALUATION ---
Anesthesia Post Eval - Post Anesthesia Eval Vitals: Last Vital Signs Temp 36.5 C 02/07/21 09:47 Pulse 68 02/07/21 09:47 Resp 15 02/07/21 09:47 BP 132/68 H 02/07/21 09:47 Pulse Ox 96 02/07/21 09:47 CV Function Including HR & BP: Stable Pain Control: Additional Therapies Ordered (Popliteal block placedin PACU prior to discharge. 20cc 0.5%ropi w/5cc 2%Lidocaine. US used for placment. Pt tolerated procedure well. Pain resolved atr 10 mins.) Nausea & Vomiting: Negative Mental Status: Baseline Respiratory Status: Airway Patent Hydration Status: Satisfactory Anesthesia Complications: None
== END 2021-02-07 06:13 | disposition home or self-care (01) ==
LOC: SDS 06:12
PROVIDERS: ATTEND Orthopaedic Surgery
PROC: 0Y6W0Z0 Detachment at Left 4th Toe, Complete, Open Approach (ICD-10-PCS; principal; 2021-02-07 07:30)
DX: E11.69 Type 2 diabetes mellitus with other specified complication (principal); M86.672 Other chronic osteomyelitis, left ankle and foot; E11.42 Type 2 diabetes mellitus with diabetic polyneuropathy; I10 Essential (primary) hypertension; E78.00 Pure hypercholesterolemia, unspecified; F17.200 Nicotine dependence, unspecified, uncomplicated; Z79.4 Long term (current) use of insulin; Z79.899 Other long term (current) drug therapy; Z89.422 Acquired absence of other left toe(s); Z89.421 Acquired absence of other right toe(s)
CPT/HCPCS: 28820; A9270; J0131; J0690; J7120

== ENCOUNTER 2021-02-24 07:10 | Emergency (ER) | payer OTHER, MEDICARE, MEDICAID ==
[2021-02-24 07:21] VITALS: BP 192/69
[2021-02-24] MEDS ORDERED: MUPIROCIN 2% OINT 1 GM TOP STA (07:37)
[2021-02-24] MEDS ORDERED: DOXYCYCLINE 100 MG TABLET PO STA (07:39)
--- NOTE | 2021-02-24 07:40 | ED Physician Documentation ---
PD HPI SKIN - Stated complaint Stated Complaint: LT FT PX - Chief complaint Chief Complaint: Ext Problem - History obtained from History obtained from: Patient - History of Present Illness Timing - onset: Yesterday Timing - duration: Days (2) Timing - details: Abrupt onset, Still present Location: LLE (lateral left foot adjacent to 5th MT head area.) Quality / character: Discolored (red), Vesicular (small blister over the roof of it.), Swelling. No: Raised, Draining Associated symptoms: No: Fever, Myalgias, N/V/D Contributing factors: No: Recent illness Similar symptoms before: Diagnosis (has had foot infections in the past, leading to bone infections and subsequent amputations.) Recently seen: Surgery (2 1/2 weeks ago (02/07/21) with toe amputation. Scheduled for suture removal in 2 days. wound is okay but has a skin sore lateral foot develop in the past 2 days. Concerned about infection at that spot.) Review of Systems Constitutional: denies: Fever, Chills Respiratory: denies: Dyspnea, Cough, Wheezing GI: denies: Abdominal Pain, Nausea, Vomiting, Diarrhea Neurologic: reports: Numbness (chonic from daibetic neuropathy.). denies: Generalized weakness PD PAST MEDICAL HISTORY - Past Medical History Past Medical History: Yes Cardiovascular: Hypertension, High cholesterol Respiratory: None Neuro: Peripheral neuropathy Endocrine/Autoimmune: Type 2 diabetes GI: None : None HEENT: None Psych: None Musculoskeletal: Other Derm: None - Past Surgical History Past Surgical History: Yes General: Appendectomy Ortho: Amputation - Present Medications Home Medications: Ambulatory Orders Medication Instructions Recorded Confirmed Insulin Glargine,Hum.rec.anlog 30 units SQ QPM 03/07/15 02/07/21 [Lantus Solostar] Liraglutide [Victoza 2-Florian] 1.8 mg SUBQ DAILY 05/13/18 02/07/21 metFORMIN [Glucophage] 1,000 mg PO BID 09/29/18 02/07/21 amLODIPine [Norvasc] 10 mg PO BID 12/28/18 02/07/21 Gabapentin [Neurontin] 1,200 mg PO BID 02/05/21 02/07/21 Insulin Aspart [NovoLOG] 0 unit SUBQ TIDWM 02/05/21 02/07/21 Losartan Potassium [Cozaar] 100 mg PO DAILY 02/05/21 02/07/21 Sildenafil Citrate [Sildenafil] 5 - 20 mg PO QPM PRN 02/05/21 02/07/21 Atorvastatin [Lipitor] 0 mg PO DAILY 02/07/21 02/07/21 oxyCODONE [Roxicodone] 5 mg PO Q4-6H #10 tablet 02/07/21 traMADol [Ultram] 50 mg PO Q4-6H #28 tablet 02/08/21 Doxycycline Hyclate 100 mg PO BID #14 02/24/21 Mupirocin Calcium [Mupirocin] 1 applic TP TID #15 gm 02/24/21 - Allergies Allergies/Adverse Reactions: Allergies Allergy/AdvReac Type Severity Reaction Status Date / Time hydromorphone [From Dilaudid] Allergy Rash Verified 02/24/21 07:21 - Social History Does the pt smoke?: No Smoking Status: Never smoker Does the pt drink ETOH?: Yes Does the pt have substance abuse?: No - Immunizations Immunizations are current?: Yes - POLST Patient has POLST: No POLST Status: Full Code PD ED PE NORMAL - Vitals Vital signs reviewed: Yes - General General: Alert and oriented X 3, No acute distress, Well developed/nourished - Cardiac Cardiac: RRR, No murmur - Respiratory Respiratory: Clear bilaterally - Derm Derm: Normal color, Warm and dry - Extremities Extremities: Other (left lateral foot at 5th MT head area with skin area of redness and blister seems superficial. Amputation site 4th toe with healing wound, skin slightly white as if overly moist. ) - Neuro Neuro: Alert and oriented X 3, No motor deficit, No sensory deficit, Normal speech Eye Opening: Spontaneous Motor: Obeys Commands Verbal: Oriented GCS Score: 15 Results - Vitals Vitals: Vital Signs - 24 hr 02/24/21 07:16 Temperature 36.5 C Heart Rate 99 Respiratory 18 Rate Blood Pressure 192/69 H O2 Saturation 100 Oxygen O2 Source Room air - Labs Labs: Microbiology 02/24/21 07:33 Wound Culture - Preliminary Foot - Left PD MEDICAL DECISION MAKING - ED course Complexity details: considered differential (skin sore lateral foot, seems likely a pressure/rub spot from bandaging adding bulk and the toe amputation skin being pulled medially, causing a prominence/pressure are on shoes. It does not seem as likely a bone deeper infection as appears superficial.. Blister unroofed and culture obtained.), d/w patient Departure - Departure Disposition: 01 Home, Self Care Clinical Impression: Skin infection, Foot infection Condition: Stable Record reviewed to determine appropriate education?: Yes Instructions: ED Infec Skin Cellulitis Follow-Up: Tirso Tejada [Primary Care Provider] - Kirk Alatorre MD [Provider Admit Priv/Credential] - Prescriptions: Doxycycline Hyclate 100 mg PO BID #14 Mupirocin Calcium [Mupirocin] 1 applic TP TID #15 gm Comments: It does look to be an early infection. I assume there is some rubbing of the skin in the area with the recent surgery causing some pulling of the skin in that area and the dressing perhaps rubbing. I would try to take some of the pressure off of that spot with moleskin or DuoDERM hydrocolloid dressing cut in a donut shaped to be around the sore. On follow-up on Friday they can recheck it in will also have available the culture results. Suture removal is planned on Friday for the main surgery site as well. That area looks good without signs of infection. The main surgery site does look perhaps slightly over moist with some whitish redness of the skin. Go more with a dry dressing rather than the Vaseline impregnated. As the new wound is healing and draining better, they may want to go with a hydroactive or hydrocolloid type dressing over it to absorb out some of the moisture. For now we will start with cleaning the area twice daily and applying lightly mupirocin topical antibiotic. Also take oral doxycycline for presumption of staph is a most common cause of infection. The culture will result in 2 days to better guide treatment. Discharge Date/Time: 02/24/21 08:02
== END 2021-02-24 08:02 | disposition home or self-care (01) ==
LOC: ED 07:10
DX: L08.9 Local infection of the skin and subcutaneous tissue, unspecified (principal); I10 Essential (primary) hypertension; E11.42 Type 2 diabetes mellitus with diabetic polyneuropathy; Z79.4 Long term (current) use of insulin; Z89.422 Acquired absence of other left toe(s)
CPT/HCPCS: 87070; 87205; 99283; 99284; A9270

== ENCOUNTER 2021-03-22 12:47 | Outpatient (CLI) | payer OTHER, MEDICARE ==
--- NOTE | 2021-03-22 14:18 | XRAY Report ---
PROCEDURE: Lumbar Spine 2 View INDICATIONS: M79.606 TECHNIQUE: 2 views of the lumbar spine were acquired. COMPARISON: None. FINDINGS: Bones: 5 [id number] vertebrae are present. There are multilevel degenerative changes with ante rior osteophytes. No significant disc space narrowing. Leftward curvature at the thoracolumbar juncti on is seen. There is normal bony alignment. No vertebral body compression fractures. No suspicious bony lesions. Soft tissues: Overlying bowel gas pattern is normal. No suspicious soft tissue calcifications. The aorta has atherosclerotic calcifications. IMPRESSION: 1. No acute abnormality of the lumbar spine. 2. Mild degenerative changes of the lumbar spine. Reviewed by: Alex Brown on 03/22/2021 2:17 PM PDT Approved by: Alex Brown on 03/22/2021 2:17 PM PDT Station ID: [id number]
== END 2021-03-22 12:48 | disposition home or self-care (01) ==
LOC: DI 12:47
PROVIDERS: ATTEND Family Medicine
DX: M79.606 Pain in leg, unspecified (principal)

== ENCOUNTER 2021-03-27 09:25 | Outpatient (CLI) | payer OTHER, MEDICARE ==
--- NOTE | 2021-03-27 17:34 | XRAY Report ---
PROCEDURE: Foot 3 View LT INDICATIONS: CHRONIC OSTEOMYELITIS OF L FOOT TECHNIQUE: 3 views of the foot were acquired. COMPARISON: 02/01/2021 FINDINGS: Bones: No acute fractures or dislocations. There is interval amputation of the fourth toe at the lev el of the metatarsophalangeal joint. Prior amputations through the fifth metatarsal shaft and second metatarsal head are redemonstrated. No definite bony erosions or new periosteal reaction within the v isualized osseous structures. There is deformity of the first metatarsal consistent with an old heale d fracture. Soft tissues: There is soft tissue swelling within the distal forefoot. No suspicious soft tissue jhon cifications. IMPRESSION: 1. Postsurgical changes in the forefoot as described. 2. No definite new radiographic evidence of osteomyelitis. Reviewed by: Taz Anderson MD on 03/27/2021 5:32 PM PDT Approved by: Taz Anderson MD on 03/27/2021 5:32 PM PDT Station ID: [id number]
== END 2021-03-27 23:59 | disposition home or self-care (01) ==
LOC: DI.N 09:25
PROVIDERS: ATTEND Physician Assistant
DX: Z89.422 Acquired absence of other left toe(s) (principal)

== ENCOUNTER 2021-03-28 06:25 | Outpatient (CLI) | payer OTHER, MEDICARE ==
--- NOTE | 2021-03-28 17:47 | Ultrasound Report ---
PROCEDURE: Duplex Lwr Ext Arterial Bilat INDICATIONS: LEG PAIN TECHNIQUE: Color and pulse Doppler interrogation was performed of both lower extremity arterial systems, with im age documentation. COMPARISON: Ankle brachial index 05/08/2020 and prior duplex arterial ultrasound 01/06/2019. FINDINGS: Right lower extremity: Common femoral artery: 117 cm/sec, with triphasic flow. Deep femoral artery: 80 cm/sec, with triphasic flow. Proximal superficial femoral artery: 126 cm/sec, with triphasic flow. Mid superficial femoral artery: 85 cm/sec, with triphasic flow. Distal superficial femoral artery: 62 cm/sec, with triphasic flow. Popliteal artery: 57 cm/sec, with triphasic flow. Posterior tibial artery: 75 cm/sec, with triphasic flow. Anterior tibial artery/dorsalis pedis: 81/64 cm/sec, with triphasic flow. Tapia-scale imaging description: Mild calcific and soft plaque. Left lower extremity: Common femoral artery: 95 cm/sec, with triphasic flow. Deep femoral artery: 80 cm/sec, with triphasic flow. Proximal superficial femoral artery: 82 cm/sec, with triphasic flow. Mid superficial femoral artery: 102 cm/sec, with triphasic flow. Distal superficial femoral artery: 61 cm/sec, with triphasic flow. Popliteal artery: 82 cm/sec, with triphasic flow. Posterior tibial artery: 79 cm/sec, with triphasic flow. Anterior tibial artery/dorsalis pedis: The seventh/46 cm/sec, with multiphasic flow. Tapia-scale imaging description: Mild calcific and soft plaque IMPRESSION: The arterial supply to the lower extremities bilaterally shows no evidence of insufficiency. Please n ote that this study does not accurately reflect small vessel microvascular disease as is frequently p resent in the setting of long-standing diabetes. Reviewed by: Sky Pinto MD on 03/28/2021 5:45 PM PDT Approved by: Sky Pinto MD on 03/28/2021 5:45 PM PDT Station ID: [id number]
== END 2021-03-28 06:26 | disposition home or self-care (01) ==
LOC: DI 06:25
PROVIDERS: ATTEND Internal Medicine
DX: M79.605 Pain in left leg (principal); M79.604 Pain in right leg
CPT/HCPCS: 93925

== ENCOUNTER 2021-05-04 07:48 | Outpatient (CLI) | payer OTHER, MEDICARE ==
--- NOTE | 2021-05-04 14:04 | XRAY Report ---
PROCEDURE: Foot 3 View BILAT INDICATIONS: DIABETIC TECHNIQUE: 3 views of the foot were acquired. COMPARISON: X-ray left foot 03/27/2021 FINDINGS: Bones: There has been amputation distal to the left second fourth and fifth metatarsals, unchanged. N o distinct erosions are identified. There is been amputation distal to the metatarsals at the first t hrough fifth digits. No distinct erosions. Soft tissues: No tibiotalar joint effusion. Achilles tendon appears normal. IMPRESSION: Prominent postoperative changes without distinct erosions. If concern for osteomyelitis persists, bon e scan or MRI is recommended. Reviewed by: Tootie Alejandra MD on 05/04/2021 2:03 PM PDT Approved by: Tootie Alejandra MD on 05/04/2021 2:03 PM PDT Station ID: [id number]
== END 2021-05-04 07:49 | disposition home or self-care (01) ==
LOC: DI 07:48
PROVIDERS: ATTEND Family Medicine
DX: Z89.412 Acquired absence of left great toe (principal); Z89.422 Acquired absence of other left toe(s)

== ENCOUNTER 2021-09-15 07:33 | Emergency (ER) | payer OTHER, MEDICARE, MEDICAID ==
--- NOTE | 2021-09-15 07:48 | ED Physician Documentation ---
History of Present Illness - Stated complaint Stated Complaint: L LEG PX - Chief complaint Chief Complaint: Ext Problem - History obtained from History obtained from: Patient - History of Present Illness Timing: How many weeks ago (1) - Additonal information Additional information: 55-year-old diabetic male who has had multiple amputations to his feet has devel oped pain from his foot all the way up to his hip. He states that he is having some difficult time bearing weight on this leg as it pain is worse when he bears weight and he does not think he has pain in his back at all. He is very worried about the possibility of vascular disease to his leg he is worried about a blood clot and he is worried about blood supply to his foot. He does know that he has a palpable foot pulse and has been reassured that he does not have vascular disease previously. Review of Systems Constitutional: denies: Fever Eyes: denies: Decreased vision Ears: denies: Ear pain Nose: denies: Congestion Respiratory: denies: Cough GI: denies: Vomiting PD PAST MEDICAL HISTORY - Past Medical History Cardiovascular: Hypertension, High cholesterol Respiratory: None Neuro: Peripheral neuropathy Endocrine/Autoimmune: Type 2 diabetes GI: None : None HEENT: None Psych: None Musculoskeletal: Other Derm: None - Past Surgical History Past Surgical History: Yes General: Appendectomy Ortho: Amputation - Present Medications Home Medications: Ambulatory Orders Medication Instructions Recorded Confirmed Insulin Glargine,Hum.rec.anlog 30 units SQ QPM 03/07/15 09/15/21 [Lantus Solostar] Liraglutide [Victoza 2-Florian] 1.8 mg SUBQ DAILY 05/13/18 09/15/21 metFORMIN [Glucophage] 1,000 mg PO BID 09/29/18 09/15/21 amLODIPine [Norvasc] 10 mg PO BID 12/28/18 09/15/21 Gabapentin [Neurontin] 1,200 mg PO BID 02/05/21 09/15/21 Losartan Potassium [Cozaar] 100 mg PO DAILY 02/05/21 09/15/21 Sildenafil Citrate [Sildenafil] 5 - 20 mg PO QPM PRN 02/05/21 09/15/21 Atorvastatin [Lipitor] 10 mg PO DAILY 02/07/21 09/15/21 Cyclobenzaprine [Flexeril] 10 mg PO TID PRN #20 tablet 09/15/21 Insulin Lispro [Humalog] 3 - 12 unit SUBQ TIDWM 09/15/21 09/15/21 Oxycodone HCl/Acetaminophen 1 - 2 each PO Q6H PRN #14 tablet 09/15/21 [Percocet 5-325 mg Tablet] - Allergies Allergies/Adverse Reactions: Allergies Allergy/AdvReac Type Severity Reaction Status Date / Time hydromorphone [From Dilaudid] Allergy Rash Verified 09/15/21 07:38 - Social History Does the pt smoke?: No Smoking Status: Never smoker Does the pt drink ETOH?: Yes Does the pt have substance abuse?: No - Immunizations Immunizations are current?: Yes - POLST Patient has POLST: No POLST Status: Full Code PD ED PE NORMAL - Vitals Vital signs reviewed: Yes (Hypertensive) - General General: Alert and oriented X 3, No acute distress, Well developed/nourished - HEENT HEENT: Atraumatic, PERRL, EOMI - Respiratory Respiratory: No respiratory distress - Derm Derm: Normal color, Warm and dry, No rash - Extremities Extremities: Other (Multiple amputations of toes of both feet. There is a good dorsalis pedis pulse to the left foot. The foot is warm the leg is warm there is no swelling to the calf there is no posterior calf tenderness. There is no tenderness over the trochanter there is some tenderness into the sciatic notch.) - Neuro Neuro: Alert and oriented X 3, managing consultant clinical professor 2-12 intact, No motor deficit, No sensory deficit, Normal speech Eye Opening: Spontaneous Motor: Obeys Commands Verbal: Oriented GCS Score: 15 - Psych Psych: Normal mood, Normal affect Results - Vitals Vitals: Vital Signs - 24 hr 09/15/21 09/15/21 09/15/21 07:35 08:29 11:00 Temperature 36.1 C L Heart Rate 97 84 63 Respiratory 20 18 16 Rate Blood Pressure 203/94 H 164/95 H 168/95 H O2 Saturation 96 96 95 09/15/21 12:32 Temperature 36.8 C Heart Rate 93 Respiratory 18 Rate Blood Pressure 188/85 H O2 Saturation 96 Oxygen O2 Source Room air - Rads (name of study) duplex arteries L Radiology: Prelim report reviewed (Impression: 1. No evidence of hemodynamicall y significant stenosis in the left lower extremity arteries.), EMP read indepedently, See rad report duplex veins left Radiology: Prelim report reviewed (Impression: 1. No evidence of deep venous thrombosis in the left lower extremity.), EMP read indepedently, See rad report PD MEDICAL DECISION MAKING - ED course Complexity details: reviewed results, re-evaluated patient, considered differential, d/w patient ED course: 55-year-old diabetic male with left leg pain from his foot all the way up to his hip worse with weightbearing likely has sciatica and he is treated here in the [facility] with dexamethasone with a warning to check his sugars frequently and he is given morphine with improvement in his pain. Departure - Departure Disposition: 01 Home, Self Care Clinical Impression: Sciatica of left side Condition: Stable Instructions: ED Sciatica Follow-Up: Tirso Tejada [Primary Care Provider] - Prescriptions: Cyclobenzaprine [Flexeril] 10 mg PO TID PRN #20 tablet PRN Reason: Spasms Oxycodone HCl/Acetaminophen [Percocet 5-325 mg Tablet] 1 - 2 each PO Q6H PRN #14 tablet PRN Reason: pain Comments: Elijah, today it looks like the pain you are having down your leg is related to the sciatic nerve. You were given a dose of dexamethasone which will cause a problem with your blood sugars over the next 2 days. Be vigilant and give yourself extra insulin as needed. I have prescribed some pain medication and a muscle relaxant for you to take and my recommendation is to start this today before your pain medication you were given here, wears off. Scripts have been E scribed to [facility] in [place] Discharge Date/Time: 09/15/21 12:43
[2021-09-15] MEDS ORDERED: MORPHINE 10 MG/ML VIAL IVP STA ×2 (08:05→09:53)
[2021-09-15] MEDS ORDERED: ONDANSETRON ODT 4 MG TABLET TL STA (08:05)
[2021-09-15] MEDS ORDERED: CHERRY SYRUP 10 ML UDC PO ONE (08:07)
[2021-09-15] MEDS ORDERED: DEXAMETHASONE 10 MG/ML VIAL PO STA (08:07)
--- NOTE | 2021-09-15 11:17 | Ultrasound Report ---
PROCEDURE: Duplex Lwr Ext Arterial LT INDICATIONS: leg pain TECHNIQUE: Color and pulse Doppler interrogation was performed of the left lower extremity arterial system, with image documentation. COMPARISON: 03/28/2021 FINDINGS: Common femoral artery: 144 cm/sec, with triphasic flow. Deep femoral artery: 129 cm/sec, with triphasic flow. Proximal superficial femoral artery: 140 cm/sec, with triphasic flow. Mid superficial femoral artery: 112 cm/sec, with triphasic flow. Distal superficial femoral artery: 117 cm/sec, with triphasic flow. Popliteal artery: 70 cm/sec, with triphasic flow. Posterior tibial artery: 128 cm/sec, with triphasic flow. Anterior tibial artery/dorsalis pedis: 105 cm/sec/37 cm/s, with triphasic flow in both. Tapia-scale imaging description: There is mild scattered atherosclerotic plaque throughout the visual ized left lower extremity arteries. IMPRESSION: 1. No evidence of hemodynamically significant stenosis in the left lower extremity arteries. Reviewed by: Taz Anderson MD on 09/15/2021 10:16 AM [facility] Approved by: Taz Anderson MD on 09/15/2021 10:16 AM [facility] Station ID: [id number]
--- NOTE | 2021-09-15 11:18 | Ultrasound Report ---
PROCEDURE: Duplex Ext Veins Left INDICATIONS: leg pain TECHNIQUE: Real-time imaging, as well as color and pulse Doppler interrogation, were performed of the lower extr emity deep veins from the inguinal ligament to the popliteal fossa. COMPARISON: None. FINDINGS: The deep veins are normally compressible, and free of intraluminal thrombus. Color and pu lse Doppler demonstrate normal phasic intraluminal flow. There is normal augmentation response to di stal compression maneuver. IMPRESSION: 1. No evidence of deep venous thrombosis in the left lower extremity. Reviewed by: Taz Anderson MD on 09/15/2021 10:17 AM [facility] Approved by: Taz Anderson MD on 09/15/2021 10:17 AM [facility] Station ID: [id number]
[2021-09-15] MEDS ORDERED: SODIUM CHLORIDE 0.9% 1,000 ML IV STA (11:49)
[2021-09-15 12:33] VITALS: BP 188/85
== END 2021-09-15 12:43 | disposition home or self-care (01) ==
LOC: ED 07:33
DX: M54.32 Sciatica, left side (principal); E11.42 Type 2 diabetes mellitus with diabetic polyneuropathy; Z79.4 Long term (current) use of insulin; Z79.84 Long term (current) use of oral hypoglycemic drugs; I10 Essential (primary) hypertension; Z89.422 Acquired absence of other left toe(s); Z89.421 Acquired absence of other right toe(s)
CPT/HCPCS: 36415; 93926; 93971; 96374; 96376; 99283; 99284; A9270; Q0162

== ENCOUNTER 2022-07-06 18:53 | Inpatient (IN) | payer MEDICARE ==
[2022-07-06] MEDS ORDERED: ceFAZolin 1 GM in SODIUM CHLORIDE 0.9% MINIBAG 100 ML IV STA (19:21)
[2022-07-06] MEDS ORDERED: MORPHINE 2 MG/ML CARPUJECT IVP STA (19:21)
--- NOTE | 2022-07-06 19:23 | ED Physician Documentation ---
History of Present Illness - Stated complaint Stated Complaint: L FOOT PX/SWELLING - Chief complaint Chief Complaint: Ext Problem - History obtained from History obtained from: Patient - Additonal information Additional information: 56-year-old gentleman with history of diabetes and MRSA presents with a new wound on the left second toe. He has a history of multiple surgeries for osteomyelitis on the toes. He just finished antibiotics, Bactrim for a nonhealing wound on the right foot. That was diagnosed about a week ago and he finished antibiotics yesterday, he states that that really has not gotten any better or any worse since discharge. He denies systemic symptoms such as fevers or chills but he does note an unintended weight loss despite excellent appetite over the last several months amounting to probably 80 pounds. Review of Systems Ten Systems: 10 systems reviewed and negative Constitutional: reports: Fatigue, Weight Loss Cardiac: denies: Chest pain / pressure, Palpitations Respiratory: denies: Dyspnea, Cough GI: denies: Abdominal Pain, Nausea, Vomiting, Diarrhea PD PAST MEDICAL HISTORY - Past Medical History Cardiovascular: Hypertension, High cholesterol Respiratory: None Neuro: Peripheral neuropathy Endocrine/Autoimmune: Type 2 diabetes GI: None : None HEENT: None Psych: None Musculoskeletal: Other Derm: None - Past Surgical History Past Surgical History: Yes General: Appendectomy Ortho: Amputation - Present Medications Home Medications: Ambulatory Orders Medication Instructions Recorded Confirmed Insulin Glargine,Hum.rec.anlog 30 units SQ QPM 03/07/15 09/15/21 [Lantus Solostar] Liraglutide [Victoza 2-Florian] 1.8 mg SUBQ DAILY 05/13/18 09/15/21 metFORMIN [Glucophage] 1,000 mg PO BID 09/29/18 09/15/21 amLODIPine [Norvasc] 10 mg PO BID 12/28/18 09/15/21 Gabapentin [Neurontin] 1,200 mg PO BID 02/05/21 09/15/21 Losartan Potassium [Cozaar] 100 mg PO DAILY 02/05/21 09/15/21 Sildenafil Citrate [Sildenafil] 5 - 20 mg PO QPM PRN 02/05/21 09/15/21 Atorvastatin [Lipitor] 10 mg PO DAILY 02/07/21 09/15/21 Cyclobenzaprine [Flexeril] 10 mg PO TID PRN #20 tablet 09/15/21 Oxycodone HCl/Acetaminophen 1 - 2 each PO Q6H PRN #14 tablet 09/15/21 [Percocet 5-325 mg Tablet] HYDROcod/ACETAM 5/325 [[place] 5/325] 1 ea PO Q6H PRN #15 tablet 06/28/22 Insulin Glargine [Lantus Solostar] 30 unit SQ DAILY 30 Days #1 pkt 06/28/22 Insulin Lispro [Humalog] 3 - 12 unit SUBQ TIDWM 30 Days #1 06/28/22 packet Mupirocin 2% Oint [Bactroban 2% 1 applic TOP TID #15 gm 06/28/22 Oint] Sulfamethox/Trimeth 800/160 1 each PO BID #14 tablet 06/28/22 [Bactrim Ds 800/160] - Allergies Allergies/Adverse Reactions: Allergies Allergy/AdvReac Type Severity Reaction Status Date / Time hydromorphone [From Dilaudid] Allergy Rash Verified 07/06/22 18:56 - Social History Does the pt smoke?: No Smoking Status: Never smoker Does the pt drink ETOH?: Yes Does the pt have substance abuse?: No - Immunizations Immunizations are current?: Yes - POLST Patient has POLST: No POLST Status: Full Code PD ED PE NORMAL - Vitals Vital signs reviewed: Yes - General General: Alert and oriented X 3, No acute distress - HEENT HEENT: PERRL, EOMI - Neck Neck: Supple, no meningeal sign, No bony TTP - Cardiac Cardiac: RRR, No murmur - Respiratory Respiratory: No respiratory distress, Clear bilaterally - Abdomen Abdomen: Non tender - Back Back: No CVA TTP, No spinal TTP - Derm Derm: Normal color, Warm and dry - Extremities Extremities: Other (He is 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 The left second toe is cellulitic. Bilateral bounding pedal pulses.) - Neuro Neuro: Alert and oriented X 3, Normal speech Results - Vitals Vitals: Vital Signs - 24 hr 07/06/22 07/06/22 18:56 20:18 Temperature 36.5 C Heart Rate 90 71 Respiratory 16 18 Rate Blood Pressure 160/90 H 149/86 H O2 Saturation 99 98 Oxygen O2 Source Room air - Labs Labs: Laboratory Tests 07/06/22 07/06/22 07/06/22 18:30 19:49 19:49 WBC 9.8 RBC 4.51 L Hgb 15.2 Hct 41.8 L MCV 92.7 MCH 33.7 H MCHC 36.4 H RDW 11.4 L Plt Count 302 MPV 9.5 Neut # (Auto) 6.6 Lymph # (Auto) 1.8 [place] # (Auto) 1.0 Eos # (Auto) 0.3 Baso # (Auto) 0.1 Absolute Nucleated RBC 0.00 Nucleated RBC % 0.0 ESR Sodium 136 Potassium 3.8 Chloride 97 L Carbon Dioxide 29 Anion Gap 10.0 BUN 13 Creatinine 0.6 Estimated GFR (MDRD) 138 Glucose 293 H Lactic Acid 1.8 Calcium 9.2 Total Bilirubin 0.4 AST 12 ALT 17 Alkaline Phosphatase 95 C-Reactive Protein < 1.0 Total Protein 7.6 Albumin 4.1 Globulin 3.5 Albumin/Globulin Ratio 1.2 07/06/22 19:49 WBC RBC Hgb Hct MCV MCH MCHC RDW Plt Count MPV Neut # (Auto) Lymph # (Auto) [place] # (Auto) Eos # (Auto) Baso # (Auto) Absolute Nucleated RBC Nucleated RBC % ESR 11 Sodium Potassium Chloride Carbon Dioxide Anion Gap BUN Creatinine Estimated GFR (MDRD) Glucose Lactic Acid Calcium Total Bilirubin AST ALT Alkaline Phosphatase C-Reactive Protein Total Protein Albumin Globulin Albumin/Globulin Ratio - Rads (name of study) Bilateral foot x-rays are without osteomyelitis with multiple amputations Radiology: EMP read contemporaneously CT of the chest abdomen pelvis were negative with regard to chronic weight loss. Radiology: EMP read contemporaneously PD MEDICAL DECISION MAKING - ED course ED course: 56-year-old gentleman has had multiple diabetic foot infections presents with a nonhealing ulcer has already finished Bactrim for same. Culture from last week grew MSSA and Aerococcus. Now has cellulitis of the left second toe. Blood work looking okay. He also notes an unintended weight loss and given long history of tobacco abuse search for malignancy was done with CT abdomen and pelvis and chest without pertinent positive findings. During the course of his ED stay the cellulitis in the left second toe progressed from being the toe only to being up to the dorsal forefoot despite having received Ancef after arrival so vancomycin was added and given that and the fact that he has failed outpatient treatment the hospitalist was paged for admission at approximately 9:30 PM. Departure - Departure Disposition: [facility] [place] Clinical Impression: Diabetic foot ulcer, Cellulitis, Diabetes type 2, uncontrolled Condition: Serious
[2022-07-06] MEDS ORDERED: ceFAZolin 1 GM VIAL ONE (19:50)
[2022-07-06 19:52] LABS: BASOPHILS # (AUTO) 0.1 10^3/uL (0.0-0.1); BASOPHILS % (AUTO) 1.2 %; EOSINOPHILS # (AUTO) 0.3 10^3/uL (0.0-0.7); EOSINOPHILS % (AUTO) 3.4 %; HCT - HEMATOCRIT 41.8 % (42.0-52.0); HGB - HEMOGLOBIN 15.2 g/dL (14.0-18.0); LYMPHOCYTES # (AUTO) 1.8 10^3/uL (1.5-3.5); MEAN CORPUSCULAR HEMOGLOBIN 33.7 pg (27.0-31.0); MEAN CORPUSCULAR HGB CONC 36.4 g/dL (32.0-36.0); MEAN CORPUSCULAR VOLUME 92.7 fL (80.0-94.0); MEAN PLATELET VOLUME 9.5 fL (7.4-11.4); MONOCYTES % (AUTO) 9.9 %; NEUTROPHILS # (AUTO) 6.6 10^3/uL (1.5-6.6); NEUTROPHILS % (AUTO) 67.1 %; PLT - PLATELET COUNT 302 10^3/uL (130-450); RED BLOOD COUNT 4.51 10^6/uL (4.70-6.10); RED CELL DISTRIBUTION WIDTH 11.4 % (12.0-15.0); WHITE BLOOD COUNT 9.8 x10^3/uL (4.8-10.8)
[2022-07-06 20:09] LABS: ALBUMIN 4.1 g/dL (3.2-5.5); ALBUMIN/GLOBULIN RATIO 1.2 (1.0-2.2); ALKALINE PHOSPHATASE 95 IU/L (42-121); ALT ALANINE AMINOTRANSFERASE 17 IU/L (10-60); AST ASPARTATE AMINOTRANSFERASE 12 IU/L (10-42); BILIRUBIN,TOTAL 0.4 mg/dL (0.2-1.0); BUN - BLOOD UREA NITROGEN 13 mg/dL (6-20); CALCIUM 9.2 mg/dL (8.5-10.3); CARBON DIOXIDE - CO2 29 mmol/L (21-32); CHLORIDE 97 mmol/L (101-111); CREATININE 0.6 mg/dL (0.6-1.2); GFR - MDRD 138 (>89); GLUCOSE 293 mg/dL (70-100); POTASSIUM 3.8 mmol/L (3.5-5.0); SODIUM 136 mmol/L (135-145); TOTAL PROTEIN 7.6 g/dL (6.7-8.2)
--- NOTE | 2022-07-06 20:13 | XRAY Report ---
PROCEDURE: Foot 3 View BILAT INDICATIONS: foot infections TECHNIQUE: 3 views of the right and left foot were acquired. COMPARISON: None FINDINGS: Bones: The right foot demonstrates amputations at the metatarsophalangeal joints of the second and fo urth rays and amputation at the distal fifth metatarsal. No evidence of osteomyelitis. Irregularity o f the first metatarsal consistent with a healed fracture is seen. The right foot demonstrates transme tatarsal amputations of all of the first through fifth rays. No evidence of osteomyelitis. Soft tissues: No tibiotalar joint effusion. Achilles tendon appears normal. IMPRESSION: Bilateral amputations as described above. No evidence of osteomyelitis bilaterally. Reviewed by: Alex Brown on 07/06/2022 8:11 PM PDT Approved by: Alex Brown on 07/06/2022 8:11 PM PDT Station ID: [id number]
[2022-07-06 20:14] LABS: CRP - C-REACTIVE PROTEIN < 1.0 mg/dL (0-1.0)
[2022-07-06] MEDS ORDERED: MORPHINE 10 MG/ML VIAL IVP STA (20:54)
--- NOTE | 2022-07-06 21:16 | CT Report ---
PROCEDURE: CHEST W INDICATIONS: Iv only, weight loss CONTRAST: IV CONTRAST: Optiray 320 ml: 100 PO CONTRAST: *NO PO CONTRAST TECHNIQUE: After the administration of intravenous contrast, 1 mm axial images were acquired from the pulmonary apices through the posterior costophrenic angles. Axial 5 mm soft tissue kernel reconstructions were performed as well as 8 mm axial MIP and coronal and sagittal 5 mm reformations. For radiation dose reduction, the following was used: automated exposure control, adjustment of mA and/or kV according to patient size. COMPARISON: Prior chest plain film 10/15/2020. FINDINGS: Image quality: Excellent. Lungs and pleura: No acute air space opacities. No pleural effusions or pneumothorax. Central and peripheral airways are patent and normal in caliber. Mediastinum: Heart size is normal. No pericardial effusion. No mediastinal or hilar adenopathy by size criteria. Thoracic aorta and central pulmonary arteries are normal in size. Esophagus is elida l in caliber. No hiatal hernia. Bones and chest wall: No suspicious bony lesions. No vertebral body compression fractures. No axil whitney or supraclavicular adenopathy by size criteria. The thyroid is normal in size and there are no incidental findings.. Abdomen: Visualized upper abdominal solid organs appear normal. Upper abdominal bowel loops are nor mal in caliber. IMPRESSION: No acute disease, source of persistent weight loss is not identified. CLINICAL RECOMMENDATION STATEMENTS: In patients <35 years with an ITN detected on CT, MRI, or extrathyroidal ultrasound, the Committee re commends further evaluation with dedicated thyroid ultrasound if the nodule is "e1 cm and has no susp icious imaging features, and if the patient has normal life expectancy. In patients "e35 years with an ITN detected on CT, MRI, or extrathyroidal ultrasound, the Committee r ecommends further evaluation with dedicated thyroid ultrasound if the nodule is "e1.5 cm and has no s uspicious imaging features, and if the patient has normal life expectancy. (ACR, 2014) Reviewed by: Sky Pinot MD on 07/06/2022 9:15 PM PDT Approved by: Sky Pinto MD on 07/06/2022 9:15 PM PDT Station ID: [id number]
--- NOTE | 2022-07-06 21:19 | CT Report ---
PROCEDURE: Abdomen/Pelvis W INDICATIONS: Iv only, weight loss CONTRAST: IV CONTRAST: Optiray 320 ml: 100 PO CONTRAST: *NO PO CONTRAST TECHNIQUE: After the administration of nonionic contrast, 5 mm thick sections acquired from the diaphragms to th e symphysis. 5 mm thick coronal and sagittal reformats were acquired. For radiation dose reduction, the following was used: automated exposure control, adjustment of mA and/or kV according to patient size. COMPARISON: Chest CT same day.. FINDINGS: Image quality: Excellent. ABDOMEN: Lung bases: Lung bases are clear. Heart size is normal. Solid organs: Liver and spleen are normal in size and enhancement. Gallbladder appears normal Bili jennifer system is non dilated. Pancreas enhances normally. No adrenal nodules. Kidneys demonstrate nor mal size and enhancement, without hydronephrosis. Peritoneum and bowel: Bowel loops demonstrate normal wall thickness and caliber. No free fluid or a ir. Nodes and vessels: No retroperitoneal or mesenteric adenopathy by size criteria. Aorta and inferior vena cava are normal in size. Miscellaneous: No ventral hernias. PELVIS: Genitourinary: Bladder wall thickness is normal. Miscellaneous: No inguinal hernias or adenopathy. Bones: No suspicious bony lesions. No vertebral body compression fractures. IMPRESSION: Source of persistent weight loss is not identified. No evidence of chronic infection or underlying neoplasm is found. Reviewed by: Sky Pinto MD on 07/06/2022 9:17 PM PDT Approved by: Sky Pinto MD on 07/06/2022 9:17 PM PDT Station ID: [id number]
[2022-07-06] MEDS ORDERED: VANCOMYCIN INJ 2 GM in SODIUM CHLORIDE 0.9% 500 ML IV STA (21:30)
[2022-07-06] MEDS ORDERED: VANCOMYCIN 1 GM VIAL ONE (22:07)
[2022-07-06 23:18] LABS: B. PARAPERTUSSIS- RESP PCR PAN NOT DETECTED; B. PERTUSSIS- RESP PCR PANEL NOT DETECTED; C. PNEUMONIAE- RESP PCR PANEL NOT DETECTED; CORONAVIRUS 229E-RESP PCR NOT DETECTED; CORONAVIRUS HKU1-RESP PCR NOT DETECTED; CORONAVIRUS NL63-RESP PCR NOT DETECTED; CORONAVIRUS OC43-RESP PCR NOT DETECTED; HUMAN METAPNEUMOVIRUS NOT DETECTED; INFLUENZA A- RESP PCR PANEL NOT DETECTED; INFLUENZA B - RESP PCR PANEL NOT DETECTED; M. PNEUMONIAE- RESP PCR PANEL NOT DETECTED; PARAINFLUENZA VIRUS 1 NOT DETECTED; PARAINFLUENZA VIRUS 2 NOT DETECTED; PARAINFLUENZA VIRUS 3 NOT DETECTED; PARAINFLUENZA VIRUS 4 NOT DETECTED; RHINOVIRUS/ENTEROVIRUS NOT DETECTED; RSV- RESP PCR PANEL NOT DETECTED; SARS-CoV-2 -RESP PCR PANEL NOT DETECTED
[2022-07-06] MEDS ORDERED: ONDANSETRON ODT 4 MG TABLET TL PRN (23:37)
[2022-07-06] MEDS ORDERED: SODIUM CHLORIDE FLUSH 0.9% 10 ML SYRINGE IVP PRN (23:37)
[2022-07-06] MEDS ORDERED: cefTRIAXone 1 GM in SODIUM CHLORIDE 0.9% MINIBAG 100 ML IV SCH (23:45)
--- NOTE | 2022-07-06 23:54 | HISTORY & PHYSICAL EXAMINATION ---
Chief Complaint - Chief Complaint Chief Complaint: Left foot infection History of Present Illness - History of Present Illness HPI Comment/Other: 56 y old male with PMH HTN, DM 2 , s/p Multiple toes amputation came to the ER due to redness and swelling in left foot which started today. As per pt, he went to work today and his left fllot was OK. When he came back, he noticed redness and swelling in left foot so he came to ER for evalutaion. Pt denies any fever, or pus discharge. Denies ARECHIGA, chest pain, SOB, nausea, vomiting, diarrhea, constipation, symptoms. On presentation, Pt was afebrile Labs showed normal WBC. X ray of left foot did not show osteomyelitis In ER, pt was given IV ancef and vanco Pt is being admitted due to cellulitis of left foot and infected diabetic foot. History - Past Medical History Cardiovascular: reports: Hypertension, High cholesterol Respiratory: reports: None Neuro: reports: Peripheral neuropathy Endocrine/Autoimmune: reports: Type 2 diabetes GI: reports: None : reports: None HEENT: reports: None Psych: reports: None Musculoskeletal: reports: Other Derm: reports: None MRSA Hx?: No - Past Surgical History General: reports: Appendectomy Ortho: reports: Amputation - Family & Social History Family History: Mother: , Alzheimer's Disease, Father: , CAD, Diabetes, Type 2, Hyperlipidemia, Hypertension, [place], Other family: CVA/TIA Family History Comment/Other: Reports his father had heart disease and diabetes. He passes from a large myocardial infarction. His grandmother also had diabetes. Social History Notes: The patient lives at home with a roommate. 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 He has been there for the last 4 months. He does report drinking 1-2 alcoholic beverages a day for quite a few years. Denies a history of alcohol withdrawal. He did smoke a pack to a pack and 1/2 a day for about 30 years but quit 1 year ago. He denies any illicit drug use. - Substance History Use: Uses substance without health or social issues: Tobacco, Alcohol - POLST Patient has POLST: No POLST Status: Full Code Meds/Allgy - Home Medications Home Medications: Ambulatory Orders Medication Instructions Recorded Confirmed Insulin Glargine,Hum.rec.anlog 30 units SQ QPM 03/07/15 09/15/21 [Lantus Solostar] Liraglutide [Victoza 2-Florian] 1.8 mg SUBQ DAILY 05/13/18 09/15/21 metFORMIN [Glucophage] 1,000 mg PO BID 09/29/18 09/15/21 amLODIPine [Norvasc] 10 mg PO BID 12/28/18 09/15/21 Gabapentin [Neurontin] 1,200 mg PO BID 02/05/21 09/15/21 Losartan Potassium [Cozaar] 100 mg PO DAILY 02/05/21 09/15/21 Sildenafil Citrate [Sildenafil] 5 - 20 mg PO QPM PRN 02/05/21 09/15/21 Atorvastatin [Lipitor] 10 mg PO DAILY 02/07/21 09/15/21 Cyclobenzaprine [Flexeril] 10 mg PO TID PRN #20 tablet 09/15/21 Oxycodone HCl/Acetaminophen 1 - 2 each PO Q6H PRN #14 tablet 09/15/21 [Percocet 5-325 mg Tablet] HYDROcod/ACETAM 5/325 [[place] 5/325] 1 ea PO Q6H PRN #15 tablet 06/28/22 Insulin Glargine [Lantus Solostar] 30 unit SQ DAILY 30 Days #1 pkt 06/28/22 Insulin Lispro [Humalog] 3 - 12 unit SUBQ TIDWM 30 Days #1 06/28/22 packet Mupirocin 2% Oint [Bactroban 2% 1 applic TOP TID #15 gm 06/28/22 Oint] Sulfamethox/Trimeth 800/160 1 each PO BID #14 tablet 06/28/22 [Bactrim Ds 800/160] - Allergies Allergies/Adverse Reactions: Allergies Allergy/AdvReac Type Severity Reaction Status Date / Time hydromorphone [From Dilaudid] Allergy Rash Verified 07/06/22 18:56 Review of Systems - Other Findings Other Findings: 10 point systems were reviewed and were negative except mentioned in HPI Exam - Vital Signs Vital Signs: Vital Signs x48h Temp Pulse Resp BP Pulse Ox 07/06/22 22:46 77 18 146/76 H 99 07/06/22 20:18 71 18 149/86 H 98 07/06/22 18:56 36.5 C 90 16 160/90 H 99 - Physical Exam General Appearance: positive: No acute distress Eyes Bilateral: positive: Normal inspection, PERRL ENT: positive: ENT inspection nml Neck: positive: No JVD Respiratory: positive: Chest non-tender, No respiratory distress, Breath sounds nml Cardiovascular: positive: Regular rate & rhythm Abdomen: positive: Non-tender, Nml bowel sounds, No distention Skin: positive: No rash Extremities: positive: No pedal edema Neurologic/Psychiatric: positive: Oriented x3, Motor nml (Right foot are ampu ated. Erythema and swelling of left 2nd toe and dorsum of left foot) Conclusion/Plan - Lab Results Fish Bones: 07/06/22 19:49 07/06/22 19:49 - Other Other Results/Comments: A: Cellulitis of left foot HTN DM 2 uncontrolled with hyperglycemia Diabetic neuropathy Plan: Admit in med surg Follow cx' NS 100 cc/h Start ceftriaxone and vanco Pharmacy to dose vanco [place] 5/325 1 tab po q6h prn Supportive care Lisinopril 10 mg po qd Start lantus and sliding scale insulin DVT prophylaxic: SCD Full code Pt will be admitted as inpatient as more than2 midnight stay is expected
[2022-07-07] MEDS: HYDROcod/ACETAM 5/325 MG TABLET PO PRN ×4 (01:09→14:19)
[2022-07-07] MEDS: SODIUM CHLORIDE FLUSH 0.9% 10 ML SYRINGE IVP SCH ×4 (01:09→23:34)
[2022-07-07] MEDS: SODIUM CHLORIDE 0.9% 1,000 ML IV SCH ×3 (01:09→21:12)
[2022-07-07 08:05] LABS: BASOPHILS # (AUTO) 0.1 10^3/uL (0.0-0.1); BASOPHILS % (AUTO) 0.8 %; EOSINOPHILS # (AUTO) 0.4 10^3/uL (0.0-0.7); EOSINOPHILS % (AUTO) 3.3 %; HCT - HEMATOCRIT 39.1 % (42.0-52.0); LYMPHOCYTES # (AUTO) 1.6 10^3/uL (1.5-3.5); LYMPHOCYTES % (AUTO) 14.9 %; MEAN CORPUSCULAR HEMOGLOBIN 33.5 pg (27.0-31.0); MEAN CORPUSCULAR HGB CONC 35.8 g/dL (32.0-36.0); MEAN CORPUSCULAR VOLUME 93.5 fL (80.0-94.0); MEAN PLATELET VOLUME 9.7 fL (7.4-11.4); MONOCYTES # (AUTO) 1.3 10^3/uL (0.0-1.0); MONOCYTES % (AUTO) 12.3 %; NEUTROPHILS # (AUTO) 7.2 10^3/uL (1.5-6.6); NEUTROPHILS % (AUTO) 68.3 %; PLT - PLATELET COUNT 287 10^3/uL (130-450); RED BLOOD COUNT 4.18 10^6/uL (4.70-6.10); RED CELL DISTRIBUTION WIDTH 11.9 % (12.0-15.0); WHITE BLOOD COUNT 10.5 x10^3/uL (4.8-10.8)
[2022-07-07 08:06] LABS: CALCIUM 8.8 mg/dL (8.5-10.3); CREATININE 0.6 mg/dL (0.6-1.2)
[2022-07-07] MEDS: INSULIN LISPRO 300 UNIT/3 ML PEN SUBQ SCH ×4 (08:46→20:48)
[2022-07-07] MEDS: VANCOMYCIN INJ 1 GM, VANCOMYCIN INJ 250 MG in SODIUM CHLORIDE 0.9% 250 ML IV SCH ×3 (08:47→23:35)
[2022-07-07] MEDS: lisinopriL 5 MG TABLET PO SCH (08:54)
[2022-07-07] MEDS: cefTRIAXone 1 GM in SODIUM CHLORIDE 0.9% MINIBAG 100 ML IV SCH ×2 (08:54→20:44)
[2022-07-07] MEDS ORDERED: VANCOMYCIN INJ 1 GM in SODIUM CHLORIDE 0.9% 500 ML IV SCH (09:00)
[2022-07-07 09:02] LABS: ESTIMATED AVERAGE GLUCOSE 309 mg/dL (70-100); HEMOGLOBIN A1c% 12.4 % (4.27-6.07)
[2022-07-07] MEDS ORDERED: VANCOMYCIN 500 MG VIAL ONE (09:07)
[2022-07-07] MEDS: MORPHINE 10 MG/ML VIAL IVP PRN ×2 (10:57→20:41)
--- NOTE | 2022-07-07 12:45 | PROVIDER PROGRESS NOTE ---
Assessment/Plan - Problem List (1) Cellulitis of left foot Assessment/Plan: This patient had spreading redness on the skin of his left foot, just during the several hours time he was in the ED. He has been admitted for cellulitis (plus persistent infection of the right foot despite antibiotics). He is on empiric IV ceftriaxone and IV vancomycin which will be continuesd. Await blood culture results The pt believes that there is drainage in the area but it is bandaged today. Will order general surgery consultation regarding possible debridement, further recommendations of the wound since [facility] [place] (today is Sun and she is not here until ). We will not order MRI of the feet yet, unless requested since chronic changes may have caused the bones to look like osteo (per orthopedics) (2) Diabetic foot ulcer Assessment/Plan: The pt believes that there is drainage in the area but it is bandaged today. Will order general surgery consultation regarding possible debridement, further recommendations of the wound since [facility] [place] not here (today is Dol[place] and she is not here until ). We will not order MRI of the feet yet, unless requested since chronic changes may have caused the bones to look like osteo (per orthopedics). Will increase his narcotics for pain control using IV morphine, he is allergic to Dilaudid that caused a rash, but tolerates Morphine (3) Diabetes mellitus type 2, insulin dependent Assessment/Plan: A1c came back at 12.4 consistent with very poorly controlled diabetes consistent with infection that is not resolving. He is demanded to be on a regular diet with low sugar. Continue with sliding scale insulin coverage for fingerstick checks, hypoglycemia protocol. Will request funds transfer clerk to help (4) Diabetic neuropathy Qualifiers: Diabetes mellitus type: type 2 Assessment/Plan: He used to be on Flexeril which helped him with the pain and spasms that he gets in the feet. Will order Flexeril. Continue with his gabapentin. Narcotics have been increased as well (5) HTN (hypertension) Qualifiers: Assessment/Plan: Will resume his blood pressure meds when they are reconciled - Current Meds Current Meds: Current Medications Generic Name Dose Route Start Last Admin Trade Name Freq PRN Reason Stop Dose Admin Hydrocodone Bitart/Acetaminophen 1 tab 07/06/22 23:37 07/07/22 09:28 Hydrocod/Acetam 5/325 Mg Tablet PO 1 tab Q4HR PRN Administration Pain 5 to 7 Sodium Chloride 1,000 mls @ 100 mls/hr 07/06/22 23:45 07/07/22 01:09 Normal Saline 0.9% IV 100 mls/hr .Q10H LILLIAN Administration Ceftriaxone Sodium 1 gm/ 100 mls @ 200 mls/hr 07/07/22 09:00 07/07/22 08:54 Sodium Chloride IV 200 mls/hr Q12H LILLIAN Administration Vancomycin HCl 1 gm/ 250 mls @ 167 mls/hr 07/07/22 08:00 07/07/22 10:25 Vancomycin HCl 250 mg/ Sodium IV Infused Chloride TID@0000,0800,1600 LILLIAN Infusion Insulin Human Lispro 2 - 10 unit 07/07/22 08:00 07/07/22 12:05 Insulin Lispro 300 Unit/3 Ml Pen SUBQ 8 unit 0800,1200,1700,2100 LILLIAN Administration Protocol Lisinopril 10 mg 07/07/22 09:00 07/07/22 08:54 Lisinopril 5 Mg Tablet PO 10 mg DAILY LILLIAN Administration Morphine Sulfate 5 mg 07/07/22 10:41 07/07/22 10:57 Morphine 10 Mg/Ml Vial IVP 5 mg Q6H PRN Administration Severe Pain Sodium Chloride 10 ml 07/07/22 01:00 07/07/22 10:36 Sodium Chloride Flush 0.9% 10 Ml Syringe IVP Not Given 0100,0900,1700 LILLIAN - Lab Result Fish Bone Diagrams: 07/07/22 07:48 07/07/22 07:48 - Additional Planning My Orders: My Active Orders 07/07/22 Consult [General Surgery Consult] [CONS] Routine 07/07/22 10:41 Morphine Inj [Morphine 10Mg Vial] 5 mg IVP Q6H PRN 07/07/22 11:51 Cyclobenzaprine [Flexeril] 10 mg PO TID PRN 07/07/22 11:52 FOOT WO - RT [MRI] Routine 07/07/22 Dinner DIET [Regular Diet] [DIET] 07/07/22 21:00 Atorvastatin [Lipitor] 10 mg PO QPM Gabapentin [Neurontin] 1,200 mg PO BID 07/08/22 05:00 BMP - BASIC METABOLIC PANEL [CHEM] DAILYLAB CBC - COMP BLD CT W/AUTO DIFF [HEME] DAILYLAB CRP - C-REACTIVE PROTEIN [CHEM] DAILYLAB ESR- ERYTHROCYTE SEDIMENT RATE [HEME] DAILYLAB 07/08/22 08:00 FOOT WO - LT [MRI] Routine Subjective - Subjective Patient Reports: Pain (in joe heels), Other (wants a "low sugar diet to get more protein") Objective Vital Signs: Vital Signs - 24 hr 07/06/22 07/06/22 07/06/22 18:56 20:18 22:46 Temperature 36.5 C Heart Rate 90 71 77 Heart Rate [ Brachial] Respiratory 16 18 18 Rate Blood Pressure 160/90 H 149/86 H 146/76 H Blood Pressure [Left Brachial artery] O2 Saturation 99 98 99 07/07/22 07/07/22 00:28 07:33 Temperature 36.6 C 36.6 C Heart Rate Heart Rate [ 80 76 Brachial] Respiratory 18 16 Rate Blood Pressure Blood Pressure 147/68 H 161/84 H [Left Brachial artery] O2 Saturation 96 97 Oxygen O2 Source Room air I&O (Last 24 Hrs): Intake and Output Totals x24h 07/05/22 07/06/22 07/07/22 23:59 23:59 23:59 Intake Total 100 1470 Output Total 200 Balance 100 1270 General: Alert, Oriented x3 HEENT: EOMI, Mucous membr. moist/pink Neck: Supple, No JVD Neuro: Alert, Other (Diminished sensation from the mid shins down, on both lower extremity) Cardiovascular: Regular rate, No murmurs Respiratory: No respiratory distress, Breath sounds nml Abdomen: Normal bowel sounds, Soft Extremities: Other (The right foot has all toes amputated and the stump is in a bandage. The left foot has 2 toes present, the others are amputated, there is redness of the third toe at the tip, the distal foot is bandaged.) - Results Results: Laboratory Results WBC 10.5 x10^3/uL (4.8-10.8) 07/07/22 07:48 RBC 4.18 10^6/uL (4.70-6.10) L 07/07/22 07:48 Hgb 14.0 g/dL (14.0-18.0) 07/07/22 07:48 Hct 39.1 % (42.0-52.0) L 07/07/22 07:48 MCV 93.5 fL (80.0-94.0) 07/07/22 07:48 MCH 33.5 pg (27.0-31.0) H 07/07/22 07:48 MCHC 35.8 g/dL (32.0-36.0) 07/07/22 07:48 RDW 11.9 % (12.0-15.0) L 07/07/22 07:48 Plt Count 287 10^3/uL (130-450) 07/07/22 07:48 MPV 9.7 fL (7.4-11.4) 07/07/22 07:48 Neut # (Auto) 7.2 10^3/uL (1.5-6.6) H 07/07/22 07:48 Lymph # (Auto) 1.6 10^3/uL (1.5-3.5) 07/07/22 07:48 [place] # (Auto) 1.3 10^3/uL (0.0-1.0) H 07/07/22 07:48 Eos # (Auto) 0.4 10^3/uL (0.0-0.7) 07/07/22 07:48 Baso # (Auto) 0.1 10^3/uL (0.0-0.1) 07/07/22 07:48 Absolute Nucleated RBC 0.00 x10^3/uL 07/07/22 07:48 Nucleated RBC % 0.0 /100WBC 07/07/22 07:48 ESR 10 mm/Hr (0-20) 07/07/22 07:48 Sodium 136 mmol/L (135-145) 07/07/22 07:48 Potassium 4.0 mmol/L (3.5-5.0) 07/07/22 07:48 Chloride 99 mmol/L (101-111) L 07/07/22 07:48 Carbon Dioxide 29 mmol/L (21-32) 07/07/22 07:48 Anion Gap 8.0 (6-13) 07/07/22 07:48 BUN 16 mg/dL (6-20) 07/07/22 07:48 Creatinine 0.6 mg/dL (0.6-1.2) 07/07/22 07:48 Estimated GFR (MDRD) 138 (>89) 07/07/22 07:48 Glucose 160 mg/dL (70-100) H 07/07/22 07:48 POC Whole Bld Glucose 311 mg/dL (70 - 100) H 07/07/22 11:03 Estimat Average Glucose 309 mg/dL (70-100) H 07/07/22 07:48 Hemoglobin A1c % 12.4 % (4.27-6.07) H 07/07/22 07:48 Lactic Acid 1.8 mmol/L (0.5-2.2) 07/06/22 18:30 Calcium 8.8 mg/dL (8.5-10.3) 07/07/22 07:48 Total Bilirubin 0.4 mg/dL (0.2-1.0) 07/06/22 19:49 AST 12 IU/L (10-42) 07/06/22 19:49 ALT 17 IU/L (10-60) 07/06/22 19:49 Alkaline Phosphatase 95 IU/L (42-121) 07/06/22 19:49 C-Reactive Protein 1.1 mg/dL (0-1.0) H 07/07/22 07:48 Total Protein 7.6 g/dL (6.7-8.2) 07/06/22 19:49 Albumin 4.1 g/dL (3.2-5.5) 07/06/22 19:49 Globulin 3.5 g/dL (2.1-4.2) 07/06/22 19:49 Albumin/Globulin Ratio 1.2 (1.0-2.2) 07/06/22 19:49 Nasal Adenovirus (PCR) NOT DETECTED 07/06/22 22:09 Nasal B. parapertussis DNA (PCR) NOT DETECTED 07/06/22 22:09 Nasal Coronavir 229E PCR NOT DETECTED 07/06/22 22:09 Nasal Coronavir HKU1 PCR NOT DETECTED 07/06/22 22:09 Nasal Coronavir NL63 PCR NOT DETECTED 07/06/22 22:09 Nasal Coronavir OC43 PCR NOT DETECTED 07/06/22 22:09 Nasal Enterovir/Rhinovir PCR NOT DETECTED 07/06/22 22:09 Nasal Influenza B PCR NOT DETECTED 07/06/22 22:09 Nasal Influenza A PCR NOT DETECTED 07/06/22 22:09 Nasal Parainfluen 1 PCR NOT DETECTED 07/06/22 22:09 Nasal Parainfluen 2 PCR NOT DETECTED 07/06/22 22:09 Nasal Parainfluen 3 PCR NOT DETECTED 07/06/22 22:09 Nasal Parainfluen 4 PCR NOT DETECTED 07/06/22 22:09 Nasal RSV (PCR) NOT DETECTED 07/06/22 22:09 Nasal B.pertussis DNA PCR NOT DETECTED 07/06/22 22:09 Nasal C.pneumoniae (PCR) NOT DETECTED 07/06/22 22:09 Joseph Human Metapneumo PCR NOT DETECTED 07/06/22 22:09 Nasal M.pneumoniae (PCR) NOT DETECTED 07/06/22 22:09 Nasal SARS-CoV-2 (PCR) NOT DETECTED 07/06/22 22:09 - Procedures Procedures: Procedures DETACHMENT AT LEFT 2ND TOE, COMPLETE, OPEN APPROACH (03/11/16) DETACHMENT AT LEFT 4TH TOE, COMPLETE, OPEN APPROACH (02/07/21) DETACHMENT AT LEFT 5TH TOE, COMPLETE, OPEN APPROACH (04/30/17) DETACHMENT AT RIGHT 1ST TOE, HIGH, OPEN APPROACH (10/20/16) DETACHMENT AT RIGHT 5TH TOE, COMPLETE, OPEN APPROACH (06/05/18) EXCIS DEBRIDE OF WOUND, INFECT, OR BURN (02/19/15) EXCISION OF RIGHT METATARSAL, OPEN APPROACH (06/05/18) RESECTION OF LEFT METATARSAL, OPEN APPROACH (01/05/19) VENOUS CATHETERIZATION NEC (02/19/15)
--- NOTE | 2022-07-07 16:14 | CONSULTATION NOTE ---
Referring Provider Name of Referring Provider:: Hospitalist team (Dr. Lara) Consult Date: 07/07/22 Chief Complaint - Chief Complaint Chief Complaint: bilateral foot wounds History of Present Illness - Admitted From Admitted From:: ED - History Obtained From Records Reviewed: ED, hospitalist notes History obtained from: patient, chart, primary team - History of Present Illness HPI Comment/Other: Patient states that he has been struggling with right foot wounds on bilateral lower extremities for many years. He expresses that he is "tired of dealing with this" and "ready to be done with it". The patient presented to the emergency department as he had worsening redness on his left foot yesterday. He states, "if you let me go home today, and will be worse again tomorrow. If you are not going to do anything, maybe I should cut off my toes myself. " He denies any fevers or chills. He denies any nausea or vomiting. He does endorse pain in his right foot at the site of a chronic wound and on his left foot in the area overlying his Achilles tendon. Overall, he states he is feeling better today than he was last night. On review of the patient's chart, he recently finished oral antibiotics for a cellulitis of his left lower extremity and noticed increased ring redness which prompted him to come to the emergency department yesterday. For bilateral lower extremity wounds, I have been consulted. History - Past Medical History Cardiovascular: reports: Hypertension, High cholesterol Respiratory: reports: None Neuro: reports: Peripheral neuropathy Endocrine/Autoimmune: reports: Type 2 diabetes (Poorly controlled) GI: reports: None : reports: None HEENT: reports: None Psych: reports: None Musculoskeletal: reports: Other Derm: reports: None MRSA Hx?: No - Past Surgical History General: reports: Appendectomy Ortho: reports: Amputation (Multiple bilateral lower extremity amputations) - Family & Social History Family History: Mother: , Alzheimer's Disease, Father: , CAD, Diabetes, Type 2, Hyperlipidemia, Hypertension, [place], Other family: CVA/TIA Family History Comment/Other: Reports his father had heart disease and diabetes. He passes from a large myocardial infarction. His grandmother also had diabetes. Social History Notes: The patient lives at home with a roommate. 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 He has been there for the last 4 months. He does report drinking 1-2 alcoholic beverages a day for quite a few years. Denies a history of alcohol withdrawal. He did smoke a pack to a pack and 1/2 a day for about 30 years but quit 1 year ago. He denies any illicit drug use. - Substance History Use: Uses substance without health or social issues: Tobacco, Alcohol - POLST Patient has POLST: No POLST Status: Full Code Meds/Allgy - Home Medications Home Medications: Ambulatory Orders Medication Instructions Recorded Confirmed Insulin Glargine,Hum.rec.anlog 30 units SQ QPM 03/07/15 07/07/22 [Lantus Solostar] Liraglutide [Victoza 2-Florian] 1.8 mg SUBQ DAILY 05/13/18 07/07/22 metFORMIN [Glucophage] 1,000 mg PO BIDWM 09/29/18 07/07/22 amLODIPine [Norvasc] 10 mg PO BID 12/28/18 07/07/22 Gabapentin [Neurontin] 1,200 mg PO BID 02/05/21 07/07/22 Losartan Potassium [Cozaar] 100 mg PO DAILY 02/05/21 07/07/22 Sildenafil Citrate [Sildenafil] 5 - 20 mg PO QPM PRN 02/05/21 07/07/22 Atorvastatin [Lipitor] 10 mg PO DAILY 02/07/21 07/07/22 Oxycodone HCl/Acetaminophen 1 - 2 each PO Q6H PRN #14 tablet 09/15/21 07/07/22 [Percocet 5-325 mg Tablet] Insulin Lispro [Humalog] 3 - 12 unit SUBQ TIDWM 30 Days #1 06/28/22 07/07/22 packet Lisinopril [Zestril] 10 mg PO DAILY 07/07/22 07/07/22 - Allergies Allergies/Adverse Reactions: Allergies Allergy/AdvReac Type Severity Reaction Status Date / Time hydromorphone [From Dilaudid] Allergy Mild Rash Verified 07/07/22 07:53 Review of Systems - Other Findings Other Findings: A complete 10 point review of symptoms is otherwise negative except for that noted in HPI and PMH. Exam - Vital Signs Reviewed Vital Signs: Yes Vital Signs: Vital Signs x48h Temp Pulse Resp BP Pulse Ox 07/07/22 15:44 36.5 C 64 18 148/96 H 98 - Physical Exam General Appearance: positive: No acute distress, Alert Eyes Bilateral: positive: Normal inspection, PERRL, EOMI ENT: positive: ENT inspection nml Neck: positive: Nml inspection Respiratory: positive: Chest non-tender, No respiratory distress Cardiovascular: positive: Regular rate & rhythm Peripheral Pulses: positive: 2+ Abdomen: positive: Non-tender, No distention Extremities: positive: No pedal edema, Other ( See comments below) Comments/Other: The right lower extremity demonstrates a chronic, healing wound on the ball of the foot consistent with a chronic pressure wound. There is some exposed fat. There is no milvia purulence draining from the wound. There is some serous drainage on the dressing. There is no foul odor from the foot. There is no redness surrounding the wound. The patient's digits have all been amputated from this extremity. The left lower extremity has 2 areas of concern. Overlying the Achilles tendon, there is a ruptured blister with some mild surrounding erythema that does not extend beyond the border of the wound. There is no purulent drainage from the wound. The second area of concern is the patient's second digit. There is mild redness of the distal portion of this digit. There is no obvious necrosis. There is no extension of the erythema onto the dorsum of the patient's foot at this time. The toe is warm but not hot. Conclusion and Plan - Lab Results Laboratory Results 07/07/22 11:03: POC Whole Bld Glucose 311 H 07/07/22 07:48: Estimat Average Glucose 309 H, Hemoglobin A1c % 12.4 H 07/07/22 07:48: C-Reactive Protein 1.1 H 07/07/22 07:48: Sodium 136, Potassium 4.0, Chloride 99 L, Carbon Dioxide 29, Anion Gap 8.0, BUN 16, Creatinine 0.6, Estimated GFR (MDRD) 138, Glucose 160 H, Calcium 8.8 07/07/22 07:48: ESR 10 07/07/22 07:48: WBC 10.5, RBC 4.18 L, Hgb 14.0, Hct 39.1 L, MCV 93.5, MCH 33.5 H, MCHC 35.8, RDW 11.9 L, Plt Count 287, MPV 9.7, Neut # (Auto) 7.2 H, Lymph # ( Auto) 1.6, [place] # (Auto) 1.3 H, Eos # (Auto) 0.4, Baso # (Auto) 0.1, Absolute Nucleated RBC 0.00, Nucleated RBC % 0.0 07/07/22 07:23: POC Whole Bld Glucose 149 H 07/06/22 22:09: Nasal Adenovirus (PCR) NOT DETECTED, Nasal B. parapertussis DNA (PCR) NOT DETECTED, Nasal Coronavir 229E PCR NOT DETECTED, Nasal Coronavir HKU1 PCR NOT DETECTED, Nasal Coronavir NL63 PCR NOT DETECTED, Nasal Coronavir OC43 PCR NOT DETECTED, Nasal Enterovir/Rhinovir PCR NOT DETECTED, Nasal Influenza B PCR NOT DETECTED, Nasal Influenza A PCR NOT DETECTED, Nasal Parainfluen 1 PCR NOT DETECTED, Nasal Parainfluen 2 PCR NOT DETECTED, Nasal Parainfluen 3 PCR NOT DETECTED, Nasal Parainfluen 4 PCR NOT DETECTED, Nasal RSV (PCR) NOT DETECTED, Nasal B.pertussis DNA PCR NOT DETECTED, Nasal C.pneumoniae (PCR) NOT DETECTED, Joseph Human Metapneumo PCR NOT DETECTED, Nasal M.pneumoniae (PCR) NOT DETECTED, Nasal SARS-CoV-2 (PCR) NOT DETECTED 07/06/22 19:49: ESR 11 07/06/22 19:49: Sodium 136, Potassium 3.8, Chloride 97 L, Carbon Dioxide 29, Anion Gap 10.0, BUN 13, Creatinine 0.6, Estimated GFR (MDRD) 138, Glucose 293 H, Calcium 9.2, Total Bilirubin 0.4, AST 12, ALT 17, Alkaline Phosphatase 95, C- Reactive Protein < 1.0, Total Protein 7.6, Albumin 4.1, Globulin 3.5, Albumin/Globulin Ratio 1.2 07/06/22 19:49: WBC 9.8, RBC 4.51 L, Hgb 15.2, Hct 41.8 L, MCV 92.7, MCH 33.7 H, MCHC 36.4 H, RDW 11.4 L, Plt Count 302, MPV 9.5, Neut # (Auto) 6.6, Lymph # (Auto) 1.8, [place] # (Auto) 1.0, Eos # (Auto) 0.3, Baso # (Auto) 0.1, Absolute Nucleated RBC 0.00, Nucleated RBC % 0.0 07/06/22 18:30: Lactic Acid 1.8 - Diagnostic Imaging Results Diagnostic Imaging Results: positive: Final report reviewed (I personally reviewed the images and report from the bilateral lower extremity x-rays done in the emergency department prior to admission.) - Consultation Note Consultation Note: This is a 56-year-old male with: 1. bilateral lower extremity wounds -I recommended placement of iodoform dressing over both open wounds. The patient is chronically followed by wound care through the [facility] and I recommend that they follow-up with the patient when they are available later this week. -There are no signs of active necrosis or worsening infection. It appears the left lower extremity looks better today than it did last night. -If further determination for possible osteomyelitis in the left second digit is desired, MRI could be obtained. If further discussion of possible amputation is desired, I would recommend orthopedics consultation. -If the remaining redness of the left lower extremity wound resolves, ant ibiotics could be stopped completely. Consider transition to p.o. antibiotics at this time. 2. Poorly controlled type 2 diabetes -The patient's elevated A1c will inhibit expedient wound healing. Although he has definitely received diabetes education in the past, the importance of controlling his diabetes cannot be overstated.
[2022-07-07] MEDS: CYCLOBENZAPRINE 10 MG TABLET PO PRN (16:44)
[2022-07-07] MEDS: GABAPENTIN 300 MG CAPSULE PO SCH (20:43)
[2022-07-07] MEDS: ATORVASTATIN 10 MG TABLET PO SCH (20:43)
[2022-07-07] MEDS ORDERED: INSULIN GLARGINE 300 UNIT/3 ML PEN SUBQ SCH (21:00)
[2022-07-07] MEDS ORDERED: INSULIN GLARGINE-YFGN 300 UNIT/3 ML PEN SUBQ SCH (21:00)
[2022-07-08 05:59] LABS: BASOPHILS # (AUTO) 0.1 10^3/uL (0.0-0.1); BASOPHILS % (AUTO) 0.7 %; EOSINOPHILS # (AUTO) 0.3 10^3/uL (0.0-0.7); EOSINOPHILS % (AUTO) 4.2 %; HCT - HEMATOCRIT 36.5 % (42.0-52.0); HGB - HEMOGLOBIN 12.9 g/dL (14.0-18.0); LYMPHOCYTES # (AUTO) 0.9 10^3/uL (1.5-3.5); LYMPHOCYTES % (AUTO) 13.3 %; MEAN CORPUSCULAR HEMOGLOBIN 33.4 pg (27.0-31.0); MEAN CORPUSCULAR HGB CONC 35.3 g/dL (32.0-36.0); MEAN CORPUSCULAR VOLUME 94.6 fL (80.0-94.0); MEAN PLATELET VOLUME 10.1 fL (7.4-11.4); MONOCYTES # (AUTO) 0.8 10^3/uL (0.0-1.0); MONOCYTES % (AUTO) 11.1 %; NEUTROPHILS # (AUTO) 4.9 10^3/uL (1.5-6.6); NEUTROPHILS % (AUTO) 70.4 %; PLT - PLATELET COUNT 242 10^3/uL (130-450); RED BLOOD COUNT 3.86 10^6/uL (4.70-6.10); RED CELL DISTRIBUTION WIDTH 11.6 % (12.0-15.0); WHITE BLOOD COUNT 6.9 x10^3/uL (4.8-10.8)
[2022-07-08 06:18] LABS: CALCIUM 8.2 mg/dL (8.5-10.3); CREATININE 0.6 mg/dL (0.6-1.2); CRP - C-REACTIVE PROTEIN 2.8 mg/dL (0-1.0)
[2022-07-08] MEDS: HYDROcod/ACETAM 5/325 MG TABLET PO PRN ×2 (06:28→15:46)
[2022-07-08 07:17] LABS: VANCOMYCIN,TROUGH 18.4 ug/mL (10.0-20.0)
[2022-07-08] MEDS: SODIUM CHLORIDE 0.9% 1,000 ML IV SCH (07:27)
[2022-07-08] MEDS: INSULIN LISPRO 300 UNIT/3 ML PEN SUBQ SCH ×6 (07:55→20:41)
[2022-07-08] MEDS: VANCOMYCIN INJ 1 GM, VANCOMYCIN INJ 250 MG in SODIUM CHLORIDE 0.9% 250 ML IV SCH ×3 (08:01→23:50)
--- NOTE | 2022-07-08 08:39 | PROVIDER PROGRESS NOTE ---
Assessment/Plan - Problem List (1) Cellulitis of left foot Assessment/Plan: This patient had spreading redness from his L 2nd toe, to the dorsum of the left foot, just during the several hours he was in the ED, by report. He was admitted for cellulitis (plus a possible persistent infection of the right foot despite antibiotics). The redness of the L toe no longer extends to the dorsum of the L foot, only that 2nd toe is red. There is no sensation/no pain there. He is on empiric IV ceftriaxone and IV vancomycin which will be continued. Awaiting blood culture results Appreciate yesterday's General Surgery consultation who felt the wounds did not need debridement, advised MRI imaging, and advised further recommendations and care from the [facility] [place] (today is Mon and Wound nurse is not here until Tu). I called [facility] [place] clinic and gave a message. An MRI of the feet was ordered for today to eval for osteo. His white blood count was never elevated. His ESR was also normal. The CRP is elevated however, so we will be following tCRP daily (2) Diabetic foot ulcer Assessment/Plan: The pt noted drainage in the stump of the R foot for the past several days. There is no sensation/no pain there. Appreciate yesterday's General Surgery consultation who felt the wounds did not need debridement, advised MRI imaging, and advised further recommendations and care from the [facility] [place]ound service (today is Mon and Wound nurse is not here until Tu). An MRI of the feet was ordered for today to eval for osteo. His white blood count was never elevated. His ESR was also normal. The CRP is elevated however, so we will be following tCRP daily (3) Diabetes mellitus type 2, insulin dependent Assessment/Plan: A1c came back at 12.4 consistent with very poorly controlled diabetes consistent with infection that is not resolving. He is demanded to be on a regular diet with low sugar. Continue with Long-acting Insulin and will increase his dose, cont sliding scale insulin coverage for fingerstick checks, hypoglycemia protocol. Will also start nutrition/mealtime Insulin doses Will request sewage reticulation drafting officer consult (4) Diabetic neuropathy Qualifiers: Diabetes mellitus type: type 2 Assessment/Plan: He used to be on Flexeril which helped him with the pain and spasms that he gets in the feet. We ordered Flexeril. He reports that Gabapentin no longer works, therefore will stop Gabapentin. Will start Lyrica and the dose may need a slow increase We ordered narcotics for pain control using IV morphine, he is allergic to Dilaudid that caused a rash, but tolerates Morphine (5) HTN (hypertension) Qualifiers: Assessment/Plan: Will resume his blood pressure meds when they are reconciled; Amlodipine 10 mg b.i.d. is entered, which must be an error as it is never dosed that high. - Current Meds Current Meds: Current Medications Generic Name Dose Route Start Last Admin Trade Name Freq PRN Reason Stop Dose Admin Hydrocodone Bitart/Acetaminophen 1 tab 07/06/22 23:37 07/08/22 06:28 Hydrocod/Acetam 5/325 Mg Tablet PO 1 tab Q4HR PRN Administration Pain 5 to 7 Atorvastatin Calcium 10 mg 07/07/22 21:00 07/07/22 20:43 Atorvastatin 10 Mg Tablet PO 10 mg QPM LILLIAN Administration Cyclobenzaprine HCl 10 mg 07/07/22 11:51 07/07/22 16:44 Cyclobenzaprine 10 Mg Tablet PO 10 mg TID PRN Administration Spasms Gabapentin 1,200 mg 07/07/22 21:00 07/07/22 20:43 Gabapentin 300 Mg Capsule PO 1,200 mg BID LILLIAN Administration Sodium Chloride 1,000 mls @ 100 mls/hr 07/06/22 23:45 07/08/22 07:27 Normal Saline 0.9% IV 100 mls/hr .Q10H LILLIAN Administration Vancomycin HCl 1 gm/ 250 mls @ 167 mls/hr 07/07/22 08:00 07/08/22 08:01 Vancomycin HCl 250 mg/ Sodium IV 167 mls/hr Chloride TID@0000,0800,1600 LILLIAN Administration Insulin Glargine-yfgn 20 unit 07/07/22 21:00 07/07/22 20:47 Insulin Glargine-Yfgn 300 Unit/3 Ml Pen SUBQ 20 unit QPM LILLIAN Administration Insulin Human Lispro 3 - 11 unit 07/08/22 08:00 07/08/22 07:55 Insulin Lispro 300 Unit/3 Ml Pen SUBQ 7 unit 0800,1200,1700,2100 LILLIAN Administration Protocol Lisinopril 10 mg 07/07/22 09:00 07/07/22 08:54 Lisinopril 5 Mg Tablet PO 10 mg DAILY LILLIAN Administration Morphine Sulfate 5 mg 07/07/22 10:41 07/07/22 20:41 Morphine 10 Mg/Ml Vial IVP 5 mg Q6H PRN Administration Severe Pain Sodium Chloride 10 ml 07/07/22 01:00 07/07/22 23:34 Sodium Chloride Flush 0.9% 10 Ml Syringe IVP Not Given 0100,0900,1700 LILLIAN - Lab Result Fish Bone Diagrams: 07/08/22 05:24 07/08/22 05:24 - Additional Planning My Orders: My Active Orders 07/07/22 10:41 Morphine Inj [Morphine 10Mg Vial] 5 mg IVP Q6H PRN 07/07/22 11:51 Cyclobenzaprine [Flexeril] 10 mg PO TID PRN 07/07/22 Dinner DIET [Regular Diet] [DIET] 07/07/22 21:00 Atorvastatin [Lipitor] 10 mg PO QPM Gabapentin [Neurontin] 1,200 mg PO BID 07/08/22 08:00 FOOT WO - LT [MRI] Routine FOOT WO - RT [MRI] Routine Insulin Lispro [Humalog Kwikpen U-100] 3 - 11 unit SUBQ 0800,1200,1700,2100 07/09/22 05:00 BMP - BASIC METABOLIC PANEL [CHEM] DAILYLAB CBC - COMP BLD CT W/AUTO DIFF [HEME] DAILYLAB CRP - C-REACTIVE PROTEIN [CHEM] DAILYLAB 07/09/22 08:00 Wound Consult MAC [MAC] Routine 07/10/22 05:00 BMP - BASIC METABOLIC PANEL [CHEM] DAILYLAB CBC - COMP BLD CT W/AUTO DIFF [HEME] DAILYLAB CRP - C-REACTIVE PROTEIN [CHEM] DAILYLAB 07/11/22 05:00 BMP - BASIC METABOLIC PANEL [CHEM] DAILYLAB CBC - COMP BLD CT W/AUTO DIFF [HEME] DAILYLAB CRP - C-REACTIVE PROTEIN [CHEM] DAILYLAB Subjective - Subjective Patient Reports: Other (Unchanged: pain in feet, drainage from R stump) Objective Vital Signs: Vital Signs - 24 hr 07/07/22 07/07/22 07/08/22 15:44 23:37 07:36 Temperature 36.5 C 36.2 C L 36.5 C Heart Rate [ 64 71 61 Brachial] Respiratory 18 19 18 Rate Blood Pressure 148/96 H 115/92 H 144/77 H [Right Brachial artery] O2 Saturation 98 96 96 Oxygen O2 Source Room air I&O (Last 24 Hrs): Intake and Output Totals x24h 07/06/22 07/07/22 07/08/22 23:59 23:59 23:59 Intake Total 100 5408.333 1490 Output Total 200 Balance 100 5208.333 1490 General: Alert, Oriented x3 HEENT: Atraumatic, EOMI Neck: Supple, No JVD Neuro: Alert, Other (diminished sensation from ankles down bilat) Cardiovascular: Regular rate, No murmurs Respiratory: No respiratory distress, Breath sounds nml Abdomen: Normal bowel sounds, Soft Extremities: No clubbing, No edema, Normal pulses, Other (R stump is bandaged, L 2nd toe is red, no redness spreading onto foot) - Results Results: Laboratory Results WBC 6.9 x10^3/uL (4.8-10.8) 07/08/22 05:24 RBC 3.86 10^6/uL (4.70-6.10) L 07/08/22 05:24 Hgb 12.9 g/dL (14.0-18.0) L 07/08/22 05:24 Hct 36.5 % (42.0-52.0) L 07/08/22 05:24 MCV 94.6 fL (80.0-94.0) H 07/08/22 05:24 MCH 33.4 pg (27.0-31.0) H 07/08/22 05:24 MCHC 35.3 g/dL (32.0-36.0) 07/08/22 05:24 RDW 11.6 % (12.0-15.0) L 07/08/22 05:24 Plt Count 242 10^3/uL (130-450) 07/08/22 05:24 MPV 10.1 fL (7.4-11.4) 07/08/22 05:24 Neut # (Auto) 4.9 10^3/uL (1.5-6.6) 07/08/22 05:24 Lymph # (Auto) 0.9 10^3/uL (1.5-3.5) L 07/08/22 05:24 Eagle # (Auto) 0.8 10^3/uL (0.0-1.0) 07/08/22 05:24 Eos # (Auto) 0.3 10^3/uL (0.0-0.7) 07/08/22 05:24 Baso # (Auto) 0.1 10^3/uL (0.0-0.1) 07/08/22 05:24 Absolute Nucleated RBC 0.00 x10^3/uL 07/08/22 05:24 Nucleated RBC % 0.0 /100WBC 07/08/22 05:24 ESR 20 mm/Hr (0-20) 07/08/22 05:24 Sodium 133 mmol/L (135-145) L 07/08/22 05:24 Potassium 4.0 mmol/L (3.5-5.0) 07/08/22 05:24 Chloride 100 mmol/L (101-111) L 07/08/22 05:24 Carbon Dioxide 26 mmol/L (21-32) 07/08/22 05:24 Anion Gap 7.0 (6-13) 07/08/22 05:24 BUN 15 mg/dL (6-20) 07/08/22 05:24 Creatinine 0.6 mg/dL (0.6-1.2) 07/08/22 05:24 Estimated GFR (MDRD) 138 (>89) 07/08/22 05:24 Glucose 245 mg/dL (70-100) H 07/08/22 05:24 POC Whole Bld Glucose 249 mg/dL (70 - 100) H 07/08/22 07:29 Estimat Average Glucose 309 mg/dL (70-100) H 07/07/22 07:48 Hemoglobin A1c % 12.4 % (4.27-6.07) H 07/07/22 07:48 Lactic Acid 1.8 mmol/L (0.5-2.2) 07/06/22 18:30 Calcium 8.2 mg/dL (8.5-10.3) L 07/08/22 05:24 Total Bilirubin 0.4 mg/dL (0.2-1.0) 07/06/22 19:49 AST 12 IU/L (10-42) 07/06/22 19:49 ALT 17 IU/L (10-60) 07/06/22 19:49 Alkaline Phosphatase 95 IU/L (42-121) 07/06/22 19:49 C-Reactive Protein 2.8 mg/dL (0-1.0) H 07/08/22 05:24 Total Protein 7.6 g/dL (6.7-8.2) 07/06/22 19:49 Albumin 4.1 g/dL (3.2-5.5) 07/06/22 19:49 Globulin 3.5 g/dL (2.1-4.2) 07/06/22 19:49 Albumin/Globulin Ratio 1.2 (1.0-2.2) 07/06/22 19:49 Nasal Adenovirus (PCR) NOT DETECTED 07/06/22 22:09 Nasal B. parapertussis DNA (PCR) NOT DETECTED 07/06/22 22:09 Nasal Coronavir 229E PCR NOT DETECTED 07/06/22 22:09 Nasal Coronavir HKU1 PCR NOT DETECTED 07/06/22 22:09 Nasal Coronavir NL63 PCR NOT DETECTED 07/06/22 22:09 Nasal Coronavir OC43 PCR NOT DETECTED 07/06/22 22:09 Nasal Enterovir/Rhinovir PCR NOT DETECTED 07/06/22 22:09 Nasal Influenza B PCR NOT DETECTED 07/06/22 22:09 Nasal Influenza A PCR NOT DETECTED 07/06/22 22:09 Nasal Parainfluen 1 PCR NOT DETECTED 07/06/22 22:09 Nasal Parainfluen 2 PCR NOT DETECTED 07/06/22 22:09 Nasal Parainfluen 3 PCR NOT DETECTED 07/06/22 22:09 Nasal Parainfluen 4 PCR NOT DETECTED 07/06/22 22:09 Nasal RSV (PCR) NOT DETECTED 07/06/22 22:09 Nasal B.pertussis DNA PCR NOT DETECTED 07/06/22 22:09 Nasal C.pneumoniae (PCR) NOT DETECTED 07/06/22 22:09 Joseph Human Metapneumo PCR NOT DETECTED 07/06/22 22:09 Nasal M.pneumoniae (PCR) NOT DETECTED 07/06/22 22:09 Nasal SARS-CoV-2 (PCR) NOT DETECTED 07/06/22 22:09 Last Dose Date Not Reportable 07/08/22 07:00 Last Dose Time Not Reportable 07/08/22 07:00 Vancomycin Trough 18.4 ug/mL (10.0-20.0) 07/08/22 07:00 - Procedures Procedures: Procedures DETACHMENT AT LEFT 2ND TOE, COMPLETE, OPEN APPROACH (03/11/16) DETACHMENT AT LEFT 4TH TOE, COMPLETE, OPEN APPROACH (02/07/21) DETACHMENT AT LEFT 5TH TOE, COMPLETE, OPEN APPROACH (04/30/17) DETACHMENT AT RIGHT 1ST TOE, HIGH, OPEN APPROACH (10/20/16) DETACHMENT AT RIGHT 5TH TOE, COMPLETE, OPEN APPROACH (06/05/18) EXCIS DEBRIDE OF WOUND, INFECT, OR BURN (02/19/15) EXCISION OF RIGHT METATARSAL, OPEN APPROACH (06/05/18) RESECTION OF LEFT METATARSAL, OPEN APPROACH (01/05/19) VENOUS CATHETERIZATION NEC (02/19/15)
[2022-07-08] MEDS: lisinopriL 5 MG TABLET PO SCH (09:02)
[2022-07-08] MEDS: MORPHINE 10 MG/ML VIAL IVP PRN ×2 (09:15→20:55)
[2022-07-08] MEDS: CYCLOBENZAPRINE 10 MG TABLET PO PRN ×2 (09:18→23:50)
[2022-07-08] MEDS: cefTRIAXone 1 GM in SODIUM CHLORIDE 0.9% MINIBAG 100 ML IV SCH ×2 (10:23→20:44)
[2022-07-08] MEDS: SODIUM CHLORIDE FLUSH 0.9% 10 ML SYRINGE IVP SCH ×3 (10:28→23:56)
[2022-07-08] MEDS: GABAPENTIN 300 MG CAPSULE PO SCH (10:50)
[2022-07-08] MEDS: PREGABALIN 25 MG CAPSULE PO SCH ×2 (11:55→20:40)
[2022-07-08] MEDS: LOSARTAN 50 MG TABLET PO SCH (15:43)
--- NOTE | 2022-07-08 19:44 | PROVIDER PROGRESS NOTE ---
Subjective - General Admit Date: 07/06/22 Procedure Date: 02/07/21 Post Op Days: 516 - Other Other Information/Narrative: Patient continues to request amputation of toes. He feels like they may be improving some, but will "just get worse again". Objective - Patient Data Reviewed Vital Signs: Yes Vital Signs: Vital Signs x48h Temp Pulse Resp BP Pulse Ox 07/08/22 15:41 36.3 C L 73 19 153/79 H 96 Weight: Weight 07/06/22 07/07/22 07/08/22 23:59 23:59 23:59 Weight (kg) 80.5 kg 78 kg Intake & Output: Intake and Output Totals x24h 07/06/22 07/07/22 07/08/22 23:59 23:59 23:59 Intake Total 100 5408.333 4110.000 Output Total 200 Balance 100 5208.333 4110.000 - Lab Results Lab Results: 07/08/22 05:24 07/08/22 05:24 Other Lab Results: Lab Results x24hrs 07/08/22 07/08/22 07/08/22 Range/Units 17:55 11:24 07:29 WBC (4.8-10.8) x10^3/uL RBC (4.70-6.10) 10^6/uL Hgb (14.0-18.0) g/dL Hct (42.0-52.0) % MCV (80.0-94.0) fL MCH (27.0-31.0) pg MCHC (32.0-36.0) g/dL RDW (12.0-15.0) % Plt Count (130-450) 10^3/uL MPV (7.4-11.4) fL Neut # (Auto) (1.5-6.6) 10^3/uL Lymph # (Auto) (1.5-3.5) 10^3/uL [place] # (Auto) (0.0-1.0) 10^3/uL Eos # (Auto) (0.0-0.7) 10^3/uL Baso # (Auto) (0.0-0.1) 10^3/uL Absolute Nucleated RBC x10^3/uL Nucleated RBC % /100WBC ESR (0-20) mm/Hr Sodium (135-145) mmol/L Potassium (3.5-5.0) mmol/L Chloride (101-111) mmol/L Carbon Dioxide (21-32) mmol/L Anion Gap (6-13) BUN (6-20) mg/dL Creatinine (0.6-1.2) mg/dL Estimated GFR (MDRD) (>89) Glucose (70-100) mg/dL POC Whole Bld Glucose 290 H 207 H 249 H (70 - 100) mg/dL Calcium (8.5-10.3) mg/dL C-Reactive Protein (0-1.0) mg/dL Last Dose Date Last Dose Time Vancomycin Trough (10.0-20.0) ug/mL 07/08/22 07/08/22 07/08/22 Range/Units 07:00 05:24 05:24 WBC (4.8-10.8) x10^3/uL RBC (4.70-6.10) 10^6/uL Hgb (14.0-18.0) g/dL Hct (42.0-52.0) % MCV (80.0-94.0) fL MCH (27.0-31.0) pg MCHC (32.0-36.0) g/dL RDW (12.0-15.0) % Plt Count (130-450) 10^3/uL MPV (7.4-11.4) fL Neut # (Auto) (1.5-6.6) 10^3/uL Lymph # (Auto) (1.5-3.5) 10^3/uL Bill[place] # (Auto) (0.0-1.0) 10^3/uL Eos # (Auto) (0.0-0.7) 10^3/uL Baso # (Auto) (0.0-0.1) 10^3/uL Absolute Nucleated RBC x10^3/uL Nucleated RBC % /100WBC ESR 20 (0-20) mm/Hr Sodium 133 L (135-145) mmol/L Potassium 4.0 (3.5-5.0) mmol/L Chloride 100 L (101-111) mmol/L Carbon Dioxide 26 (21-32) mmol/L Anion Gap 7.0 (6-13) BUN 15 (6-20) mg/dL Creatinine 0.6 (0.6-1.2) mg/dL Estimated GFR (MDRD) 138 (>89) Glucose 245 H (70-100) mg/dL POC Whole Bld Glucose (70 - 100) mg/dL Calcium 8.2 L (8.5-10.3) mg/dL C-Reactive Protein 2.8 H (0-1.0) mg/dL Last Dose Date Not Reportable Last Dose Time Not Reportable Vancomycin Trough 18.4 (10.0-20.0) ug/mL 07/08/22 07/07/22 Range/Units 05:24 20:24 WBC 6.9 (4.8-10.8) x10^3/uL RBC 3.86 L (4.70-6.10) 10^6/uL Hgb 12.9 L (14.0-18.0) g/dL Hct 36.5 L (42.0-52.0) % MCV 94.6 H (80.0-94.0) fL MCH 33.4 H (27.0-31.0) pg MCHC 35.3 (32.0-36.0) g/dL RDW 11.6 L (12.0-15.0) % Plt Count 242 (130-450) 10^3/uL MPV 10.1 (7.4-11.4) fL Neut # (Auto) 4.9 (1.5-6.6) 10^3/uL Lymph # (Auto) 0.9 L (1.5-3.5) 10^3/uL Bill[place] # (Auto) 0.8 (0.0-1.0) 10^3/uL Eos # (Auto) 0.3 (0.0-0.7) 10^3/uL Baso # (Auto) 0.1 (0.0-0.1) 10^3/uL Absolute Nucleated RBC 0.00 x10^3/uL Nucleated RBC % 0.0 /100WBC ESR (0-20) mm/Hr Sodium (135-145) mmol/L Potassium (3.5-5.0) mmol/L Chloride (101-111) mmol/L Carbon Dioxide (21-32) mmol/L Anion Gap (6-13) BUN (6-20) mg/dL Creatinine (0.6-1.2) mg/dL Estimated GFR (MDRD) (>89) Glucose (70-100) mg/dL POC Whole Bld Glucose 357 H (70 - 100) mg/dL Calcium (8.5-10.3) mg/dL C-Reactive Protein (0-1.0) mg/dL Last Dose Date Last Dose Time Vancomycin Trough (10.0-20.0) ug/mL - Current Medications Current Medications: Current Medications Generic Name Dose Route Start Last Admin Trade Name Freq PRN Reason Stop Dose Admin Hydrocodone Bitart/Acetaminophen 1 tab 07/06/22 23:37 07/08/22 15:46 Hydrocod/Acetam 5/325 Mg Tablet PO 1 tab Q4HR PRN Administration Pain 5 to 7 Atorvastatin Calcium 10 mg 07/07/22 21:00 07/07/22 20:43 Atorvastatin 10 Mg Tablet PO 10 mg QPM LILLIAN Administration Cyclobenzaprine HCl 10 mg 07/07/22 11:51 07/08/22 09:18 Cyclobenzaprine 10 Mg Tablet PO 10 mg TID PRN Administration Spasms Vancomycin HCl 1 gm/ 250 mls @ 167 mls/hr 07/07/22 08:00 07/08/22 18:50 Vancomycin HCl 250 mg/ Sodium IV Infused Chloride TID@0000,0800,1600 LILLIAN Infusion Ceftriaxone Sodium 1 gm/ 100 mls @ 200 mls/hr 07/08/22 07:30 07/08/22 10:55 Sodium Chloride IV Infused 1000,2200 LILLIAN Infusion Insulin Human Lispro 3 - 11 unit 07/08/22 08:00 07/08/22 17:58 Insulin Lispro 300 Unit/3 Ml Pen SUBQ 9 unit 0800,1200,1700,2100 LILLIAN Administration Protocol Insulin Human Lispro 5 unit 07/08/22 12:00 07/08/22 17:58 Insulin Lispro 300 Unit/3 Ml Pen SUBQ 5 unit TIDWM LILLIAN Administration Lisinopril 10 mg 07/07/22 09:00 07/08/22 09:02 Lisinopril 5 Mg Tablet PO 10 mg DAILY LILLIAN Administration Losartan Potassium 100 mg 07/08/22 15:00 07/08/22 15:43 Losartan 50 Mg Tablet PO 100 mg DAILY LILLIAN Administration Morphine Sulfate 5 mg 07/07/22 10:41 07/08/22 09:15 Morphine 10 Mg/Ml Vial IVP 5 mg Q6H PRN Administration Severe Pain Pregabalin 25 mg 07/08/22 12:00 07/08/22 11:55 Pregabalin 25 Mg Capsule PO 25 mg BID LILLIAN Administration Sodium Chloride 10 ml 07/07/22 01:00 07/08/22 16:05 Sodium Chloride Flush 0.9% 10 Ml Syringe IVP 10 ml 0100,0900,1700 LILLIAN Administration - Physical Exam Wound/Incisions: positive: Other (R foot wound bandages, L heel wound bandaged, L 2nd toe demonstrates 50% resolution of erythema seen yesterday.) General Appearance: positive: No acute distress, Alert Eyes Bilateral: positive: Normal inspection Respiratory: positive: No respiratory distress Impression/Plan - Problem List Problem List: This is a 56-year-old male with: 1. bilateral lower extremity wounds -I recommended placement of iodoform dressing over both open wounds. The patient tells me today he is not followed by any provider or clinic currently. [place] [facility] [place]. - MRI pending to assess for osteomyelitis, though suspicion is low given normal wbc, vitals, and clinical improvement - L 2nd digit continues to clinically improve; this was the major infectious concern at the time of admission. - If further discussion of possible amputation is desired, I would recommend orthopedics consultation. Also consider outpatient f/u with podiatry. -If the remaining redness of the left lower extremity wound resolves, antibiotics could be stopped completely. Consider transition to p.o. antibiotics at this time. - I frankly discussed the patient's high risk for complication and poor wound healing after surgery given his poorly controlled diabetes with him today. He continues to request amputation of his remaining toes and states that not doing so is "only makes me suffer." 2. Poorly controlled type 2 diabetes -The patient's elevated A1c will inhibit expedient wound healing. Although he has definitely received diabetes education in the past, the importance of controlling his diabetes cannot be overstated.
[2022-07-08] MEDS: ATORVASTATIN 10 MG TABLET PO SCH (20:40)
[2022-07-08] MEDS ORDERED: INSULIN GLARGINE-YFGN 300 UNIT/3 ML PEN SUBQ SCH (21:00)
[2022-07-09 05:31] LABS: BASOPHILS # (AUTO) 0.1 10^3/uL (0.0-0.1); EOSINOPHILS # (AUTO) 0.3 10^3/uL (0.0-0.7); EOSINOPHILS % (AUTO) 4.3 %; HCT - HEMATOCRIT 37.1 % (42.0-52.0); HGB - HEMOGLOBIN 13.4 g/dL (14.0-18.0); LYMPHOCYTES % (AUTO) 16.3 %; MEAN CORPUSCULAR HEMOGLOBIN 34.4 pg (27.0-31.0); MEAN CORPUSCULAR HGB CONC 36.1 g/dL (32.0-36.0); MEAN CORPUSCULAR VOLUME 95.1 fL (80.0-94.0); MEAN PLATELET VOLUME 10.1 fL (7.4-11.4); MONOCYTES # (AUTO) 0.7 10^3/uL (0.0-1.0); MONOCYTES % (AUTO) 11.2 %; NEUTROPHILS # (AUTO) 4.2 10^3/uL (1.5-6.6); NEUTROPHILS % (AUTO) 66.7 %; PLT - PLATELET COUNT 242 10^3/uL (130-450); RED CELL DISTRIBUTION WIDTH 11.7 % (12.0-15.0); WHITE BLOOD COUNT 6.3 x10^3/uL (4.8-10.8)
[2022-07-09 05:59] LABS: CREATININE 0.6 mg/dL (0.6-1.2); CRP - C-REACTIVE PROTEIN 1.5 mg/dL (0-1.0); POTASSIUM 4.1 mmol/L (3.5-5.0)
[2022-07-09 07:27] VITALS: BP 133/74
[2022-07-09] MEDS: INSULIN LISPRO 300 UNIT/3 ML PEN SUBQ SCH ×2 (08:08→08:12)
[2022-07-09] MEDS: VANCOMYCIN INJ 1 GM, VANCOMYCIN INJ 250 MG in SODIUM CHLORIDE 0.9% 250 ML IV SCH (08:33)
[2022-07-09] MEDS: PREGABALIN 25 MG CAPSULE PO SCH (08:34)
[2022-07-09] MEDS: lisinopriL 5 MG TABLET PO SCH (08:34)
[2022-07-09] MEDS: LOSARTAN 50 MG TABLET PO SCH (08:35)
[2022-07-09] MEDS: SODIUM CHLORIDE FLUSH 0.9% 10 ML SYRINGE IVP SCH (08:35)
--- NOTE | 2022-07-09 10:17 | MRI Report ---
PROCEDURE: Foot LT W/O INDICATIONS: Persistent diabetic foot infection TECHNIQUE: Noncontrast sagittal T1 spin echo and T2 fast spin echo with fat saturation, long-axis T1 spin echo a nd STIR, short-axis proton density fast spin echo and T2 fast spin echo with fat saturation through t he forefoot. COMPARISON: Feet radiographs 07/06/2022. Left foot MRI 11/11/2020. FINDINGS: Image quality: Excellent. Bones and joints: Postsurgical changes are seen from multiple amputations, including at the second a nd fourth tarsometatarsal joints and the distal fifth metatarsal shaft. Mild chronic healed fracture deformity is seen at the first metatarsal, including an inferiorly projecting osseous protuberance th at demonstrates mild osseous edema and may impinge upon the lateral hallux sesamoid. There is flatten ing of the third metatarsal head with mild subcortical edema, which appears similar when compared to the MRI from 11/11/2020. No focal osseous erosion or T1 signal abnormality is seen to suggest osteomye litis. Soft tissues: Mild subcutaneous thickening is seen at the distal aspect of the first and third toes. There is mild chronic-appearing skin irregularity distal to the second metatarsal head. No definite focal skin ulceration is seen. There is diffuse fatty infiltration of the intrinsic foot musculature, consistent with chronic denervation changes. The flexor hallucis longus tendon demonstrates intermed iate signal intensity, consistent with tendinosis. There is mild tendinosis of the first and third ex tensor tendons. IMPRESSION: 1.Postsurgical changes from prior forefoot amputations. No MR evidence of active osteomyelitis. 2.Mild chronic flattening and remodeling of the third metatarsal head with subchondral edema, which a ppears stable to mildly progressed when compared to the prior MRI from 11/11/2020. 3.Chronic healed fracture deformity of the first metatarsal shaft with a mildly edematous inferiorly projecting osteophytes protuberance that may impinge upon the lateral hallux sesamoid and/or the flex or hallucis brevis tendon. 4.Mild tendinosis of the flexor pollicis longus tendon and the extensor hallucis longus and third ext ensor digitorum longus tendons. 5.Diffuse fatty infiltration of the intrinsic foot musculature is most likely secondary to chronic de nervation changes. Reviewed by: Gavin Verdugo MD on 07/09/2022 10:16 AM PDT Approved by: Gavin Verdugo MD on 07/09/2022 10:16 AM PDT Station ID: [id number]
--- NOTE | 2022-07-09 10:17 | MRI Report ---
PROCEDURE: Foot RT W/O INDICATIONS: Persistent diabetic foot infection TECHNIQUE: Noncontrast sagittal T1 spin echo and T2 fast spin echo with fat saturation, long-axis T1 spin echo a nd STIR, short-axis proton density fast spin echo and T2 fast spin echo with fat saturation through t he forefoot. COMPARISON: Foot radiographs 07/02/2022 and 06/28/2022. Right foot MRI 05/08/2020 FINDINGS: Image quality: Excellent. Bones and joints: Postsurgical changes are seen from transmetatarsal amputation of the forefoot invo lving the first through fifth rays. Mild osseous edema is seen within the distal first metatarsal wit hout definite cortical destruction. There is periosteal new bone formation or heterotopic ossificatio n along the distal plantar aspect of the first metatarsal that demonstrates more prominent edema with loss of T1-weighted signal intensity. Very mild osseous edema is seen within the distal metatarsals without loss of T1-weighted signal intensity. No definite cortical destruction is seen. Mild heteroto pic ossification is seen along the distal lateral aspect of the second metatarsal as seen on prior ra diographs. Mild degenerative changes are seen at the tarsometatarsal joints. Calcaneocuboid degenerat lisa changes are seen with cystic changes and edema within the proximal portion of the cuboid. Soft tissues: Suspected focal skin ulceration at the plantar medial aspect of the forefoot distal to the first metatarsal resection site. Trace associated fluid is present without a drainable fluid col lection seen. There is mild soft tissue edema throughout the medial forefoot. Fatty infiltration of t he intrinsic foot musculature is most likely related to chronic denervation changes. The principal Li sfranc ligament is intact. IMPRESSION: 1.Skin ulceration at the distal plantar medial aspect of the forefoot adjacent to the first metatarsa l surgical site. Soft tissue edema and trace fluid are seen adjacent to the ulcer without a drainable abscess identified. Mild osseous edema is seen within the adjacent distal first metatarsal without d efinite erosion or cortical destruction or loss of T1-weighted signal. Findings are most consistent w ith reactive edema, although very early or developing osteomyelitis could appear similarly. 2.Postsurgical changes from transmetatarsal amputations through the forefoot. 3.Fatty infiltration of the intrinsic foot musculature is most likely secondary to chronic denervatio n changes. Reviewed by: Gavin Verdugo MD on 07/09/2022 10:15 AM PDT Approved by: Gavin Verdugo MD on 07/09/2022 10:15 AM PDT Station ID: [id number]
--- NOTE | 2022-07-09 11:09 | PROVIDER PROGRESS NOTE ---
Subjective - Subjective Subjective: The patient is pretty insistent that he wants the affected toe to be amputated. He does not want to "live this way anymore." No significant pain. Stable. There are no fevers. White cell count is normal. Sedimentation rate started at 11, and is 20 today. He denies chest pain, palpitations, shortness of breath. Objective - Vital Signs/Intake & Output Vital Signs: Vital Signs x48h Temp Pulse Resp BP Pulse Ox 07/09/22 07:26 36.4 C L 63 18 133/74 H 97 Intake & Output: Intake & Output 07/06/22 07/07/22 07/08/22 07/09/22 23:59 23:59 23:59 23:59 Intake Total 100 5408.333 5710.000 1080 Output Total 200 Balance 100 5208.333 5710.000 1080 - Lab Results Fish Bones: 07/09/22 04:56 07/09/22 04:56 Other Labs: Lab Results x24hrs 07/09/22 07/09/22 07/09/22 Range/Units 07:20 07:05 04:56 WBC (4.8-10.8) x10^3/uL RBC (4.70-6.10) 10^6/uL Hgb (14.0-18.0) g/dL Hct (42.0-52.0) % MCV (80.0-94.0) fL MCH (27.0-31.0) pg MCHC (32.0-36.0) g/dL RDW (12.0-15.0) % Plt Count (130-450) 10^3/uL MPV (7.4-11.4) fL Neut # (Auto) (1.5-6.6) 10^3/uL Lymph # (Auto) (1.5-3.5) 10^3/uL Bourbon # (Auto) (0.0-1.0) 10^3/uL Eos # (Auto) (0.0-0.7) 10^3/uL Baso # (Auto) (0.0-0.1) 10^3/uL Absolute Nucleated RBC x10^3/uL Nucleated RBC % /100WBC Sodium 131 L (135-145) mmol/L Potassium 4.1 (3.5-5.0) mmol/L Chloride 98 L (101-111) mmol/L Carbon Dioxide 27 (21-32) mmol/L Anion Gap 6.0 (6-13) BUN 19 (6-20) mg/dL Creatinine 0.6 (0.6-1.2) mg/dL Estimated GFR (MDRD) 138 (>89) Glucose 237 H (70-100) mg/dL POC Whole Bld Glucose 207 H (70 - 100) mg/dL Calcium 8.0 L (8.5-10.3) mg/dL C-Reactive Protein 1.5 H (0-1.0) mg/dL Last Dose Date 07/09/22 Last Dose Time 02:50 Vancomycin Trough 18.0 (10.0-20.0) ug/mL 07/09/22 07/08/22 07/08/22 Range/Units 04:56 20:26 17:55 WBC 6.3 (4.8-10.8) x10^3/uL RBC 3.90 L (4.70-6.10) 10^6/uL Hgb 13.4 L (14.0-18.0) g/dL Hct 37.1 L (42.0-52.0) % MCV 95.1 H (80.0-94.0) fL MCH 34.4 H (27.0-31.0) pg MCHC 36.1 H (32.0-36.0) g/dL RDW 11.7 L (12.0-15.0) % Plt Count 242 (130-450) 10^3/uL MPV 10.1 (7.4-11.4) fL Neut # (Auto) 4.2 (1.5-6.6) 10^3/uL Lymph # (Auto) 1.0 L (1.5-3.5) 10^3/uL Bourbon # (Auto) 0.7 (0.0-1.0) 10^3/uL Eos # (Auto) 0.3 (0.0-0.7) 10^3/uL Baso # (Auto) 0.1 (0.0-0.1) 10^3/uL Absolute Nucleated RBC 0.00 x10^3/uL Nucleated RBC % 0.0 /100WBC Sodium (135-145) mmol/L Potassium (3.5-5.0) mmol/L Chloride (101-111) mmol/L Carbon Dioxide (21-32) mmol/L Anion Gap (6-13) BUN (6-20) mg/dL Creatinine (0.6-1.2) mg/dL Estimated GFR (MDRD) (>89) Glucose (70-100) mg/dL POC Whole Bld Glucose 147 H 290 H (70 - 100) mg/dL Calcium (8.5-10.3) mg/dL C-Reactive Protein (0-1.0) mg/dL Last Dose Date Last Dose Time Vancomycin Trough (10.0-20.0) ug/mL 07/08/22 Range/Units 11:24 WBC (4.8-10.8) x10^3/uL RBC (4.70-6.10) 10^6/uL Hgb (14.0-18.0) g/dL Hct (42.0-52.0) % MCV (80.0-94.0) fL MCH (27.0-31.0) pg MCHC (32.0-36.0) g/dL RDW (12.0-15.0) % Plt Count (130-450) 10^3/uL MPV (7.4-11.4) fL Neut # (Auto) (1.5-6.6) 10^3/uL Lymph # (Auto) (1.5-3.5) 10^3/uL Bour[place] # (Auto) (0.0-1.0) 10^3/uL Eos # (Auto) (0.0-0.7) 10^3/uL Baso # (Auto) (0.0-0.1) 10^3/uL Absolute Nucleated RBC x10^3/uL Nucleated RBC % /100WBC Sodium (135-145) mmol/L Potassium (3.5-5.0) mmol/L Chloride (101-111) mmol/L Carbon Dioxide (21-32) mmol/L Anion Gap (6-13) BUN (6-20) mg/dL Creatinine (0.6-1.2) mg/dL Estimated GFR (MDRD) (>89) Glucose (70-100) mg/dL POC Whole Bld Glucose 207 H (70 - 100) mg/dL Calcium (8.5-10.3) mg/dL C-Reactive Protein (0-1.0) mg/dL Last Dose Date Last Dose Time Vancomycin Trough (10.0-20.0) ug/mL Assessment/Plan - Problem List (1) Cellulitis of left foot Impression: This patient had spreading redness from his L 2nd toe, to the dorsum of the left foot, just during the several hours he was in the ED, by report. He was admitted for cellulitis (plus a possible persistent infection of the right foot despite antibiotics). The redness of the L toe no longer extends to the dorsum of the L foot, only that 2nd toe is red. There is no sensation/no pain there. He is on empiric IV ceftriaxone and IV vancomycin which will be continued. Awaiting blood culture results Appreciate yesterday's General Surgery consultation who felt the wounds did not need debridement, advised MRI imaging, and advised further recommendations and care from the [facility] Wound service (today is Mon and Wound nurse is not here until ). I called [facility] clinic and gave a message. An MRI of the feet was ordered for today to eval for osteo. His white blood count was never elevated. His ESR was also normal. The CRP is elevated however, so [facility]
--- NOTE | 2022-07-09 11:20 | DISCHARGE SUMMARY ---
Discharge Summary Admit Date: 07/07/22 Discharge Date: 07/09/22 Discharging Provider: Lyn Gunn MD Primary Care Provider: [facility] [employer] Code Status: Attempt Resuscitation Condition at Discharge: Fair Discharge Disposition: 01 Home, Self Care - DIAGNOSES Discharge Diagnoses with Status of Each Condition: 1. Left second toe cellulitis. 2. Type 2 diabetes mellitus, with complications of neuropathy, nephropathy, soft tissue infection, and on long-term use of insulin 3. Right plantar foot ulcer 4. Hypertension 5. Hyperlipidemia - HPI History of Present Illness: 56 y old male with PMH HTN, DM 2 , s/p Multiple toes amputation came to the ER due to redness and swelling in left foot which started today. As per pt, he went to work today and his left foot was OK. When he came back, he noticed redness and swelling in left foot so he came to ER for evalutaion. Pt denies any fever, or pus discharge. Denies ARECHIGA, chest pain, SOB, nausea, vomiting, diarrhea, constipation, symptoms. On presentation, Pt was afebrile Labs showed normal WBC. X ray of left foot did not show osteomyelitis In ER, pt was given IV ancef and vanco Pt is being admitted due to cellulitis of left foot and infected diabetic foot. - Past Medical History Cardiovascular: reports: Hypertension, High cholesterol Respiratory: reports: None Neuro: reports: Peripheral neuropathy Endocrine/Autoimmune: reports: Type 2 diabetes GI: reports: None : reports: None HEENT: reports: None Psych: reports: None Musculoskeletal: reports: Other Derm: reports: None MRSA Hx?: No - CONSULTS | PROCEDURES Procedures: 1. Foot x-rays of right and left foot. Bilateral amputations are seen with no evidence of osteomyelitis bilaterally. 2. Chest CT done for weight loss has no acute disease, source of persistent weight loss is not identified. 3. Abdomen/pelvis CT done for weight loss. No source of persistent weight loss identified. No evidence of chronic infection or underlying neoplasm found on this radiologic study. 4. Left foot MRI has postsurgical changes from prior forefoot amputations. No MR evidence of active osteomyelitis. Mild chronic flattening and remodeling of the third metatarsal head with subchondral edema and appears stable. Chronic healed fracture deformity of the first metatarsal shaft with mildly edematous inferiorly projecting osteophyte protuberance. Mild tendinosis of the flexor pollicis longus tendon and extensor houses longus and third extensor digitorum longus. Diffuse fatty infiltration of the intrinsic foot musculature most likely secondary to chronic denervation. Right foot MRI with skin ulceration at the plantar aspect of the forefoot adjacent to the first metatarsal surgical site. Soft tissue edema and trace fluid seen adjacent to the ulcer without drainable abscess. Mild osseous edema seen within the adjacent distal first metatarsal without definite erosion or cortical destruction. Postsurgical changes from a transmetatarsal amputation through the forefoot. Fatty infiltration of the intrinsic musculature. 5. Wound culture of left foot growing staph aureus. 6. Blood culture July 06 negative after 2 days - HOSPITAL COURSE Hospital Course: On examination in the emergency room his right foot had distal foot amputation and he has no toes. He has a pinpoint ulcer with purulent base at the tip. The left second toe was red, warm, and both feet had bounding pedal pulses. But there was no description of an open wound, drainage. Throughout his stay, the patient did not have fever, did not have elevated white cell count. He was seen by general surgery for consultation and they declined doing an amputation at the patient's request. The patient is essentially "tired of all of this" and wants the left second toe amputated. Unfortunately he does not meet criteria for amputation at this time. Cellulitis had almost completely resolved by the time of discharge with IV antibiotics. His wound culture grew out staph. Blood cultures were negative. Throughout his entire stay he did not have a fever or an elevated white cell count. The left red toe is now only slightly red. The right pinpoint ulcer and purulent drainage has improved in that there is no more drainage, no fluctuance. He basically has a callus that has ulcerated down to muscle. The patient is stable, and discharged in stable condition. He is not happy and keeps on insisting "we are not helping him". Even though I have explained to him that he does not meet criteria for amputation, and why he does not meet criteria for amputation he states that he is offended that no one wants to do what he asked him to do. When I explained that his left toe looked "good" he became angry and said how can you not see that this is abnormal. I explained to him that I do acknowledge that his foot anatomy and toe anatomy is distorted. But there is a difference between expected pathological findings in a person who has had amputations, versus active infection requiring hospitalization. Social work has managed to get an appointment for him at [facility] with our primary care providers Falguni Church at 9:20 am. He does not have an appointment with a specific provider but is to be "worked in". It is our hope that he then establish his regular medical care for his diabetes. That he is referred to the wound clinic to get regular wound care for the right foot. The cellulitic left toe will most likely be improved. He was discharged with Keflex 500 4 times daily for 7 days. At discharge temperature is 36.4. Heart rate 63. Blood pressure 133/74. Respirations 18. 97% on room air. He is 6 foot 2 inches tall, weighs 78 kg. He is a thin, slightly disheveled white male, emotional right now being expressed to me is that he is "angry". Neck is supple without bruits. Lungs are clear to auscultation and percussion. PMI is normally placed with a regular rate and rhythm. Abdomen is benign. The extremities have a distal amputation of all of his toes on the right foot. The toe on the left foot is slightly red and flexion bent at the PIP. But no open wound, no drainage of that toe. The left foot Achilles skin area has lost superficial skin. Slightly reddened und erneath. It almost looks as if he had shoes that were rubbing and almost give him a blister. But there is no blister. There is no cellulitis here. Just a simple loss of skin from friction. No heat, no swelling, anatomy is completely normal. he is ambulating in the room without assistance and is packing his suitcase while I am speaking to him. no ataxia. no limping but gait is affected by transmetarsal amputation of right foot. Greater than 30 minutes was spent coordinating discharge - ALLERGIES Allergies/Adverse Reactions: Allergies Allergy/AdvReac Type Severity Reaction Status Date / Time hydromorphone [From Dilaudid] Allergy Mild Rash Verified 07/07/22 07:53 - MEDICATIONS Home Medications: Ambulatory Orders Medication Instructions Recorded Confirmed Insulin Glargine,Hum.rec.anlog 30 units SQ QPM 03/07/15 07/07/22 [Lantus Solostar] Liraglutide [Victoza 2-Florian] 1.8 mg SUBQ DAILY 05/13/18 07/07/22 metFORMIN [Glucophage] 1,000 mg PO BIDWM 09/29/18 07/07/22 amLODIPine [Norvasc] 10 mg PO BID 12/28/18 07/07/22 Gabapentin [Neurontin] 1,200 mg PO BID 02/05/21 07/07/22 Losartan Potassium [Cozaar] 100 mg PO DAILY 02/05/21 07/07/22 Sildenafil Citrate [Sildenafil] 5 - 20 mg PO QPM PRN 02/05/21 07/07/22 Atorvastatin [Lipitor] 10 mg PO DAILY 02/07/21 07/07/22 Oxycodone HCl/Acetaminophen 1 - 2 each PO Q6H PRN #14 tablet 09/15/21 07/07/22 [Percocet 5-325 mg Tablet] Insulin Lispro [Humalog] 3 - 12 unit SUBQ TIDWM 30 Days #1 06/28/22 07/07/22 packet Lisinopril [Zestril] 10 mg PO DAILY 07/07/22 07/07/22 cephALEXin [Keflex] 500 mg PO Q6H #28 cap 07/09/22 - LABS Result Diagrams: 07/09/22 04:56 07/09/22 04:56
--- NOTE | 2022-07-09 11:22 | Discharge Plan ---
Discharge Plan Problem Reviewed?: Yes Disposition: Home, Self Care Condition: Fair Prescriptions: cephALEXin [Keflex] 500 mg PO Q6H #28 cap Diet: Diabetic Activity Restrictions: Activity as Tolerated Shower Restrictions: Yes Driving Restrictions: Yes Health Concerns: You presented to the emergency room with a new wound on your left second toe. You already have a history of multiple foot surgeries and have no toes on your right foot. And you only have 1 main toe on your left foot. It is that toe that you were concerned about. You have just finished Bactrim for an infection in the right foot. You did not have any fever, chills. You had been losing some weight. In the emergency room you were found to have a diabetic foot ulcer on the bottom of your right foot where your toes would have been. But no infection. The left second toe was red, tender. You did not have an elevated white cell count nor did you have a fever. And your secondary inflammatory markers for infection were also normal. You were placed in the hospital for IV antibiotics. The culture that grew out of your wound on the left toe was regular staff aureus. And your blood cultures were normal. You continue to have a normal white cell count. No fever. You are of a strong opinion that you really want the toe amputated on the left foot. General surgery saw you. An MRI was done of the right foot and left foot. There is no bone infection. And general surgery declines amputation. I did offer you a consultation with orthopedic surgery but you felt "they are not going to help me anyway" and you preferred to leave the hospital as opposed to wait for their opinion. Plan of Treatment: Our main recommendation is that you follow through with establishing care with a primary care provider so that you can get regular wound care and regular follow-up care for your diabetes. You have an appointment with the [facility] July 17 at 9:20 am.. They have agreed to work nightly with the provider that is on that day. Please have them refer you to the wound center. At this time we feel that you had a simple toe infection on the left foot and it is now improved. The toe is still slightly red but there is no drainage and no open wound. The right foot ulcer is a dry callus that is opened up. But there is no drainage, redness, heat. Please keep your feet clean and dry. You can take a shower and you can take a bath. But dry your feet immediately and cover them with clean Kerlix bandage on the right foot. The left foot does not need a bandage To complete any infection treatment of the left toe, you are being sent home with Keflex 500 mg 4 times a day. Please complete that antibiotic therapy. Care Goals: Unfortunately your care goals and our care goals right now are at odds. You want amputation of the toes of your left foot. By medical criteria we do not feel you meet that need at this time. This makes you very unhappy. Right now goal is to heal both the left foot and right foot of open wounds, ulcers, redness. Secondary goal would be to have control of your diabetes, and regular medical care. Assessment: Patient is alert, oriented, making his own decisions. At this time describes being very unhappy at lack of amputation being offered at this time. But he promises to follow through with follow-up appointments to establish care. No Smoking: If you smoke, Please STOP! Call for help.
== END 2022-07-09 11:45 | disposition home or self-care (01) | DRG 603 ==
LOC: ED 18:53 → MS2 23:38
PROVIDERS: ADMIT Internal Medicine; ATTEND Specialist
DX: L03.116 Cellulitis of left lower limb (principal); L97.529 Non-pressure chronic ulcer of other part of left foot with unspecified severity; L97.412 Non-pressure chronic ulcer of right heel and midfoot with fat layer exposed; L03.032 Cellulitis of left toe; E11.21 Type 2 diabetes mellitus with diabetic nephropathy; E11.42 Type 2 diabetes mellitus with diabetic polyneuropathy; E11.621 Type 2 diabetes mellitus with foot ulcer; Z20.822 Contact with and (suspected) exposure to COVID-19; E11.65 Type 2 diabetes mellitus with hyperglycemia; E78.00 Pure hypercholesterolemia, unspecified; I10 Essential (primary) hypertension; R63.4 Abnormal weight loss; Z68.22 Body mass index [BMI] 22.0-22.9, adult; Z79.4 Long term (current) use of insulin; Z79.84 Long term (current) use of oral hypoglycemic drugs; Z79.899 Other long term (current) drug therapy; Z87.891 Personal history of nicotine dependence; Z89.422 Acquired absence of other left toe(s); Z89.431 Acquired absence of right foot
CPT/HCPCS: 36415; 71260; 73630; 73718; 74177; 80048; 80053; 80202; 83036; 83605; 85025; 85651; 86140; 87040; 87070; 87181; 87205; 87633; 99284; A9270; J1815; J3370; Q9967

== ENCOUNTER 2022-08-02 07:19 | Outpatient (CLI) | payer MEDICARE | END 2022-08-02 07:20 | disposition critical access hospital (66) | LOC: EMS 07:19 | DX: E11.649 Type 2 diabetes mellitus with hypoglycemia without coma (principal); Z79.4 Long term (current) use of insulin | CPT/HCPCS: A0425; A0429 ==

== ENCOUNTER 2022-08-02 07:39 | Emergency (ER) | payer MEDICARE ==
[2022-08-02] MEDS ORDERED: SODIUM CHLORIDE 0.9% 1,000 ML IV STA (07:44)
[2022-08-02 07:56] LABS: BASOPHILS # (AUTO) 0.1 10^3/uL (0.0-0.1); EOSINOPHILS # (AUTO) 0.3 10^3/uL (0.0-0.7); EOSINOPHILS % (AUTO) 3.5 %; HCT - HEMATOCRIT 39.9 % (42.0-52.0); LYMPHOCYTES # (AUTO) 1.3 10^3/uL (1.5-3.5); LYMPHOCYTES % (AUTO) 13.9 %; MEAN CORPUSCULAR HEMOGLOBIN 33.3 pg (27.0-31.0); MEAN CORPUSCULAR HGB CONC 35.1 g/dL (32.0-36.0); MEAN PLATELET VOLUME 9.7 fL (7.4-11.4); MONOCYTES % (AUTO) 10.3 %; NEUTROPHILS # (AUTO) 6.7 10^3/uL (1.5-6.6); PLT - PLATELET COUNT 279 10^3/uL (130-450); RED CELL DISTRIBUTION WIDTH 11.8 % (12.0-15.0); WHITE BLOOD COUNT 9.4 x10^3/uL (4.8-10.8)
--- NOTE | 2022-08-02 08:09 | ED Physician Documentation ---
History of Present Illness - Stated complaint Stated Complaint: DIABETIC ISSUE - Chief complaint Chief Complaint: General - History obtained from History obtained from: Patient - Additonal information Additional information: The patient comes to the emergency department for chief complaint of "feeling weak" after taking his insulin this morning. Patient states he awakened and found his fasting blood sugar to be 215. He took 8 units of his Humulin to try to bring this down and then as he was arriving to his job at [employer] in [place], he suddenly felt insulin hitting him. Patient states he became weak and sweaty and barely made it in the door of [employer]. Somebody got him a soda and he was able to drink this and by the time the medics got there, his blood sugar was in the mid 100s. However, the patient was still feeling weak and sweaty and so he was brought here. He states he feels a little better than he did but still just tired. He denies any chest pain or shortness of breath. He was feeling like his normal self when he went to bed last night and when he woke up this morning. No recent illness. No abdominal pain or nausea. No other complaints at this time. He has not eaten any actual food today. Review of Systems Ten Systems: 10 systems reviewed and negative Constitutional: reports: Fatigue, Sweats Eyes: reports: Reviewed and negative Ears: reports: Reviewed and negative Nose: reports: Reviewed and negative Throat: reports: Reviewed and negative Cardiac: reports: Reviewed and negative Respiratory: reports: Reviewed and negative GI: reports: Reviewed and negative : reports: Reviewed and negative Skin: reports: Reviewed and negative Musculoskeletal: reports: Reviewed and negative Neurologic: reports: Reviewed and negative Psychiatric: reports: Reviewed and negative Endocrine: reports: Reviewed and negative Immunocompromised: reports: Reviewed and negative PD PAST MEDICAL HISTORY - Past Medical History Past Medical History: Yes Cardiovascular: Hypertension, High cholesterol Respiratory: None Neuro: Peripheral neuropathy Endocrine/Autoimmune: Type 2 diabetes GI: None : None HEENT: None Psych: None Musculoskeletal: Other Derm: None - Past Surgical History Past Surgical History: Yes General: Appendectomy Ortho: Amputation - Present Medications Home Medications: Ambulatory Orders Medication Instructions Recorded Confirmed Insulin Glargine,Hum.rec.anlog 30 units SQ QPM 03/07/15 08/02/22 [Lantus Solostar] Liraglutide [Victoza 2-Florian] 1.8 mg SUBQ DAILY 05/13/18 08/02/22 metFORMIN [Glucophage] 1,000 mg PO BIDWM 09/29/18 07/07/22 amLODIPine [Norvasc] 10 mg PO BID 12/28/18 08/02/22 Gabapentin [Neurontin] 1,200 mg PO BID 02/05/21 08/02/22 Losartan Potassium [Cozaar] 100 mg PO DAILY 02/05/21 08/02/22 Sildenafil Citrate [Sildenafil] 5 - 20 mg PO QPM PRN 02/05/21 07/07/22 Atorvastatin [Lipitor] 10 mg PO DAILY 02/07/21 08/02/22 Insulin Lispro [Humalog] 3 - 12 unit SUBQ TIDWM 30 Days #1 06/28/22 08/02/22 packet Lisinopril [Zestril] 10 mg PO DAILY 07/07/22 08/02/22 - Allergies Allergies/Adverse Reactions: Allergies Allergy/AdvReac Type Severity Reaction Status Date / Time hydromorphone [From Dilaudid] Allergy Mild Rash Verified 08/02/22 08:02 - Social History Does the pt smoke?: No Smoking Status: Never smoker Does the pt drink ETOH?: Yes Does the pt have substance abuse?: No - Immunizations Immunizations are current?: Yes - POLST Patient has POLST: No POLST Status: Full Code PD ED PE NORMAL - Vitals Vital signs reviewed: Yes - General General: Alert and oriented X 3, No acute distress, Well developed/nourished - HEENT HEENT: Atraumatic, PERRL, EOMI, Moist mucous membranes - Neck Neck: Supple, no meningeal sign - Cardiac Cardiac: RRR, No murmur - Respiratory Respiratory: No respiratory distress, Clear bilaterally - Abdomen Abdomen: Soft, Non tender, Non distended - Derm Derm: Normal color, Warm and dry, No rash - Extremities Extremities: No deformity, No edema - Neuro Neuro: Alert and oriented X 3 - Psych Psych: Normal mood, Normal affect Results - Vitals Vitals: Vital Signs - 24 hr 08/02/22 08/02/22 07:33 07:48 Temperature 36.6 C Heart Rate 68 65 Respiratory 16 Rate Blood Pressure 180/81 H O2 Saturation 100 100 Oxygen O2 Source Room air - Labs Labs: Laboratory Tests 08/02/22 08/02/22 07:53 07:53 WBC 9.4 RBC 4.20 L Hgb 14.0 Hct 39.9 L MCV 95.0 H MCH 33.3 H MCHC 35.1 RDW 11.8 L Plt Count 279 MPV 9.7 Neut # (Auto) 6.7 H Lymph # (Auto) 1.3 L Lanier # (Auto) 1.0 Eos # (Auto) 0.3 Baso # (Auto) 0.1 Absolute Nucleated RBC 0.00 Nucleated RBC % 0.0 Sodium 136 Potassium 4.1 Chloride 98 L Carbon Dioxide 29 Anion Gap 9.0 BUN 20 Creatinine 0.7 Estimated GFR (MDRD) 116 Glucose 131 H Calcium 9.1 Total Bilirubin 0.2 AST 14 ALT 14 Alkaline Phosphatase 77 Total Protein 7.0 Albumin 3.7 Globulin 3.3 Albumin/Globulin Ratio 1.1 Lipase 33 PD MEDICAL DECISION MAKING - ED course Complexity details: reviewed results, re-evaluated patient, considered differential, d/w patient ED course: The patient was given a meal in the emergency department and was worked up with laboratory studies and given IV fluids. He overall was well-appearing and without concerning vital signs. His blood sugar on labs was 131 and this remained stable throughout subsequent glucose checks. I felt the patient is stable for discharge home. We have discussed the need to follow-up with his primary care physician, Should he continue to have trouble controlling his blood sugars. Departure - Departure Disposition: 01 Home, Self Care Clinical Impression: Hypoglycemia associated with diabetes Condition: Stable Instructions: ED Diabetes Hypoglycemia Insulin React Comments: Your labs look good and your blood sugar has stabilized. Please go home and get some rest and eat a good solid meal. Drink plenty of fluids also. If you find that your blood sugars are not well controlled on your current regimen, you will need to talk to your doctor about whether your insulin regimen should be adjusted.
[2022-08-02 08:10] LABS: ALBUMIN 3.7 g/dL (3.2-5.5); ALBUMIN/GLOBULIN RATIO 1.1 (1.0-2.2); BILIRUBIN,TOTAL 0.2 mg/dL (0.2-1.0); CALCIUM 9.1 mg/dL (8.5-10.3); CREATININE 0.7 mg/dL (0.6-1.2); POTASSIUM 4.1 mmol/L (3.5-5.0)
[2022-08-02 09:21] VITALS: BP 179/77
== END 2022-08-02 09:20 | disposition home or self-care (01) ==
LOC: EDUNIT# → ED 07:39
DX: E11.649 Type 2 diabetes mellitus with hypoglycemia without coma (principal); Z79.4 Long term (current) use of insulin; Z79.84 Long term (current) use of oral hypoglycemic drugs; I10 Essential (primary) hypertension
CPT/HCPCS: 36415; 80053; 83690; 85025; 96360; 99284

== ENCOUNTER 2022-10-10 20:15 | Emergency (ER) | payer MEDICARE ==
[2022-10-10] MEDS ORDERED: VANCOMYCIN INJ 1.75 GM in SODIUM CHLORIDE 0.9% 500 ML IV STA (21:12)
--- NOTE | 2022-10-10 21:20 | ED Physician Documentation ---
History of Present Illness - Stated complaint Stated Complaint: LT FOOT DRAINING/SWELLING - Chief complaint Chief Complaint: Ext Problem - History obtained from History obtained from: Patient - Additonal information Additional information: The patient comes to the emergency department chief complaint of left foot pain and drainage that he has noticed today. Patient has a history of diabetes for which he takes insulin and metformin and has severe peripheral neuropathy affecting his feet. He has had multiple diabetic foot infections and has had multiple toes amputated on both feet by Dr. Alatorre. He states that he just finished Keflex and 1 other antibiotic the name of which she is not sure about 4 days ago for another foot infection. He states the oral antibiotics "never work". He has not had any measured fevers at home but has noticed chills. He does not otherwise feel ill per se. No other complaints at this time. Review of Systems Ten Systems: 10 systems reviewed and negative Constitutional: reports: Reviewed and negative Eyes: reports: Reviewed and negative Ears: reports: Reviewed and negative Nose: reports: Reviewed and negative Throat: reports: Reviewed and negative Cardiac: reports: Reviewed and negative Respiratory: reports: Reviewed and negative GI: reports: Reviewed and negative : reports: Reviewed and negative Skin: reports: Other (Redness, swelling left foot) Musculoskeletal: reports: Reviewed and negative Neurologic: reports: Reviewed and negative Psychiatric: reports: Reviewed and negative Endocrine: reports: Reviewed and negative Immunocompromised: reports: Reviewed and negative PD PAST MEDICAL HISTORY - Past Medical History Cardiovascular: Hypertension, High cholesterol Respiratory: None Neuro: Peripheral neuropathy Endocrine/Autoimmune: Type 2 diabetes GI: None : None HEENT: None Psych: None Musculoskeletal: Other Derm: None - Past Surgical History Past Surgical History: Yes General: Appendectomy Ortho: Amputation - Present Medications Home Medications: Ambulatory Orders Medication Instructions Recorded Confirmed Insulin Glargine,Hum.rec.anlog 30 units SQ QPM 03/07/15 08/02/22 [Lantus Solostar] Liraglutide [Victoza 2-Florian] 1.8 mg SUBQ DAILY 05/13/18 08/02/22 metFORMIN [Glucophage] 1,000 mg PO BIDWM 09/29/18 07/07/22 amLODIPine [Norvasc] 10 mg PO BID 12/28/18 08/02/22 Gabapentin [Neurontin] 1,200 mg PO BID 02/05/21 08/02/22 Losartan Potassium [Cozaar] 100 mg PO DAILY 02/05/21 08/02/22 Sildenafil Citrate [Sildenafil] 5 - 20 mg PO QPM PRN 02/05/21 07/07/22 Atorvastatin [Lipitor] 10 mg PO DAILY 02/07/21 08/02/22 Insulin Lispro [Humalog] 3 - 12 unit SUBQ TIDWM 30 Days #1 06/28/22 08/02/22 packet Lisinopril [Zestril] 10 mg PO DAILY 07/07/22 08/02/22 Ciprofloxacin HCl [Cipro] 500 mg PO BID #14 tablet 09/25/22 Mupirocin 2% Oint [Bactroban 2% 1 applic TOP TID #15 gm 09/25/22 Oint] Oxycodone HCl/Acetaminophen 1 each PO Q6H PRN #14 tablet 09/25/22 [Percocet 5-325 mg Tablet] cephALEXin [Keflex] 500 mg PO TID #20 cap 09/25/22 Amox/Clav 875/125 [Augmentin] 1 each PO Q12H #20 tablet 10/11/22 - Allergies Allergies/Adverse Reactions: Allergies Allergy/AdvReac Type Severity Reaction Status Date / Time hydromorphone [From Dilaudid] Allergy Mild Rash Verified 10/11/22 11:43 - Social History Does the pt smoke?: No Smoking Status: Never smoker Does the pt drink ETOH?: Yes Does the pt have substance abuse?: No - Immunizations Immunizations are current?: Yes - POLST Patient has POLST: No POLST Status: Full Code PD ED PE NORMAL - Vitals Vital signs reviewed: Yes - General General: Alert and oriented X 3, No acute distress, Well developed/nourished, Other (Well-appearing) - HEENT HEENT: Atraumatic, PERRL, EOMI, Moist mucous membranes - Neck Neck: Supple, no meningeal sign - Cardiac Cardiac: RRR, No murmur, Strong equal pulses - Respiratory Respiratory: No respiratory distress, Clear bilaterally - Abdomen Abdomen: Soft, Non tender, Non distended - Derm Derm: Warm and dry, Other (Deep erythema of left great toe with maceration of skin and some large bullous formation and partial separation of the nail. Serosanguineous fluid is expressible from the macerated skin and bullae with no purulent drainage noted. Dorsum slightly erythematous with short streak ascending proximally) - Extremities Extremities: No deformity, Other (Mild edema L foot. ) - Neuro Neuro: Alert and oriented X 3 - Psych Psych: Normal mood, Normal affect Results - Vitals Vitals: Oxygen O2 Source Room air - Labs Labs: Laboratory Tests 10/10/22 10/10/22 10/11/22 21:20 21:20 00:09 WBC 11.2 H RBC 4.06 L Hgb 13.3 L Hct 38.0 L MCV 93.6 MCH 32.8 H MCHC 35.0 RDW 12.4 Plt Count 206 MPV 10.0 Neut # (Auto) 8.3 H Lymph # (Auto) 1.4 L Weld # (Auto) 1.2 H Eos # (Auto) 0.2 Baso # (Auto) 0.1 Absolute Nucleated RBC 0.00 Nucleated RBC % 0.0 Sodium 130 L Potassium 3.5 Chloride 96 L Carbon Dioxide 23 Anion Gap 11.0 BUN 13 Creatinine 0.7 Estimated GFR (MDRD) 115 Glucose 445 H POC Whole Bld Glucose 282 H Calcium 8.3 L Total Bilirubin 0.7 AST 10 ALT 11 Alkaline Phosphatase 84 Total Protein 6.8 Albumin 3.5 Globulin 3.3 Albumin/Globulin Ratio 1.1 Lipase 39 10/11/22 02:01 WBC RBC Hgb Hct MCV MCH MCHC RDW Plt Count MPV Neut # (Auto) Lymph # (Auto) Weld # (Auto) Eos # (Auto) Baso # (Auto) Absolute Nucleated RBC Nucleated RBC % Sodium Potassium Chloride Carbon Dioxide Anion Gap BUN Creatinine Estimated GFR (MDRD) Glucose POC Whole Bld Glucose 150 H Calcium Total Bilirubin AST ALT Alkaline Phosphatase Total Protein Albumin Globulin Albumin/Globulin Ratio Lipase PD Medical Decision Making - ED course Complexity details: reviewed results, re-evaluated patient, considered jese arnada d/w patient ED course: The patient was worked up with labs and given vancomycin. His labs showed a mildly elevated WBC count and a significantly elevated blood glucose at 445. The pt was given insulin to bring his sugar down. The pt was afebrile, hemodynamically stable and overall, well-appearing in the ED. We have discussed at length the pt's situation. We do not have orthopedics available until mid- October, and our hospital is full, with a nearly impossible transfer situation throughout [facility] for all but the most critical cases, and even then , this is often a very delayed process. The pt has a history of recurrent osteomyelitis, but MRI is not available in the middle of the night. At this point in time, the findings are indicative of a moderate cellulitis of the toe, and are very localized, with little involvement beyond the toe. I will discharge the pt home this morning, and he has agreed to come back in 10-12 hours for his next dose of vancomycin and recheck. The pt has expressed the desire to potentially see a different orthopedist, and as we only have one here, I have counseled him that he may always seek a second opinion through one of the other [facility]. We have discussed the usual indications for sooner return. Departure - Departure Disposition: 01 Home, Self Care Clinical Impression: Diabetic foot infection Condition: Stable Instructions: Diabetes Treat Severe Foot Infecs, ED Foot Care Diabetic Comments: You have an infection of your left big toe that is largely confined to the toe and foot. There is no evidence of a rapidly necrotizing process at this time. You have been treated with an dose of IV antibiotics, and will need to return in about 10 hours for your next dose. This should be roughly around noon. At that time, your foot will be reexamined and will be determined whether you need further IV antibiotics. You will need to also make a follow-up appointment for next week with your primary care provider to get established pulse with that person and with the MAC clinic and a diabetic ventilator specialist. Discharge Date/Time: 10/11/22 02:55
[2022-10-10 21:24] LABS: BASOPHILS # (AUTO) 0.1 10^3/uL (0.0-0.1); BASOPHILS % (AUTO) 0.6 %; EOSINOPHILS # (AUTO) 0.2 10^3/uL (0.0-0.7); EOSINOPHILS % (AUTO) 1.4 %; HGB - HEMOGLOBIN 13.3 g/dL (14.0-18.0); LYMPHOCYTES # (AUTO) 1.4 10^3/uL (1.5-3.5); LYMPHOCYTES % (AUTO) 12.7 %; MEAN CORPUSCULAR HEMOGLOBIN 32.8 pg (27.0-31.0); MEAN CORPUSCULAR VOLUME 93.6 fL (80.0-94.0); MONOCYTES # (AUTO) 1.2 10^3/uL (0.0-1.0); MONOCYTES % (AUTO) 10.8 %; NEUTROPHILS # (AUTO) 8.3 10^3/uL (1.5-6.6); NEUTROPHILS % (AUTO) 74.1 %; PLT - PLATELET COUNT 206 10^3/uL (130-450); RED BLOOD COUNT 4.06 10^6/uL (4.70-6.10); RED CELL DISTRIBUTION WIDTH 12.4 % (12.0-15.0); WHITE BLOOD COUNT 11.2 x10^3/uL (4.8-10.8)
[2022-10-10] MEDS ORDERED: VANCOMYCIN 1 GM VIAL ONE (21:31)
[2022-10-10] MEDS ORDERED: MORPHINE 2 MG/ML CARPUJECT IVP STA (21:35)
[2022-10-10 21:44] LABS: ALBUMIN 3.5 g/dL (3.2-5.5); ALBUMIN/GLOBULIN RATIO 1.1 (1.0-2.2); BILIRUBIN,TOTAL 0.7 mg/dL (0.2-1.0); CALCIUM 8.3 mg/dL (8.5-10.3); CREATININE 0.7 mg/dL (0.6-1.2); POTASSIUM 3.5 mmol/L (3.5-5.0); TOTAL PROTEIN 6.8 g/dL (6.7-8.2)
[2022-10-10] MEDS ORDERED: INSULIN REGULAR HUMAN 100 UNIT/1 ML 10 ML MDV IVP STA (23:06)
[2022-10-11] MEDS ORDERED: INSULIN REGULAR HUMAN 100 UNIT/1 ML 10 ML MDV IVP STA (00:30)
[2022-10-11] MEDS ORDERED: MORPHINE 2 MG/ML CARPUJECT IVP STA (00:58)
[2022-10-11 02:50] VITALS: BP 143/74
[2022-10-11] MEDS ORDERED: INSULIN GLARGINE-YFGN 300 UNIT/3 ML PEN SUBQ SCH (21:00)
== END 2022-10-11 02:55 | disposition home or self-care (01) ==
LOC: ED 20:15
DX: E11.42 Type 2 diabetes mellitus with diabetic polyneuropathy (principal); L03.032 Cellulitis of left toe; Z79.4 Long term (current) use of insulin; I10 Essential (primary) hypertension
CPT/HCPCS: 36415; 80053; 83690; 85025; 96365; 96366; 96375; 96376; 99283; 99284; J1815; J3370

== ENCOUNTER 2022-10-11 11:33 | Emergency (ER) | payer MEDICARE ==
--- NOTE | 2022-10-11 12:24 | ED Physician Documentation ---
PD HPI LOWER EXT INJURY - Stated complaint Stated Complaint: DIABETIC FOOT CARE - Chief complaint Chief Complaint: Wound - History obtained from History obtained from: Patient - Additional information Additional information: 57-year-old gentleman with recurrent foot infections status post amputations of almost all of the digits on his feet presents with a infection of his left foot. He was seen by my partner last night and advised to return today for repeat dosing of IV antibiotics. He states he has worsened with redness and pain in the interim. No fevers. Review of Systems Constitutional: reports: Reviewed and negative Eyes: reports: Reviewed and negative Cardiac: reports: Reviewed and negative Respiratory: reports: Reviewed and negative PD PAST MEDICAL HISTORY - Past Medical History Cardiovascular: Hypertension, High cholesterol Respiratory: None Neuro: Peripheral neuropathy Endocrine/Autoimmune: Type 2 diabetes GI: None : None HEENT: None Psych: None Musculoskeletal: Other Derm: None - Past Surgical History Past Surgical History: Yes General: Appendectomy Ortho: Amputation - Present Medications Home Medications: Ambulatory Orders Medication Instructions Recorded Confirmed Insulin Glargine,Hum.rec.anlog 30 units SQ QPM 03/07/15 08/02/22 [Lantus Solostar] Liraglutide [Victoza 2-Florian] 1.8 mg SUBQ DAILY 05/13/18 08/02/22 metFORMIN [Glucophage] 1,000 mg PO BIDWM 09/29/18 07/07/22 amLODIPine [Norvasc] 10 mg PO BID 12/28/18 08/02/22 Gabapentin [Neurontin] 1,200 mg PO BID 02/05/21 08/02/22 Losartan Potassium [Cozaar] 100 mg PO DAILY 02/05/21 08/02/22 Sildenafil Citrate [Sildenafil] 5 - 20 mg PO QPM PRN 02/05/21 07/07/22 Atorvastatin [Lipitor] 10 mg PO DAILY 02/07/21 08/02/22 Insulin Lispro [Humalog] 3 - 12 unit SUBQ TIDWM 30 Days #1 06/28/22 08/02/22 packet Lisinopril [Zestril] 10 mg PO DAILY 07/07/22 08/02/22 Ciprofloxacin HCl [Cipro] 500 mg PO BID #14 tablet 09/25/22 Mupirocin 2% Oint [Bactroban 2% 1 applic TOP TID #15 gm 09/25/22 Oint] Oxycodone HCl/Acetaminophen 1 each PO Q6H PRN #14 tablet 09/25/22 [Percocet 5-325 mg Tablet] cephALEXin [Keflex] 500 mg PO TID #20 cap 09/25/22 Amox/Clav 875/125 [Augmentin] 1 each PO Q12H #20 tablet 10/11/22 - Allergies Allergies/Adverse Reactions: Allergies Allergy/AdvReac Type Severity Reaction Status Date / Time hydromorphone [From Dilaudid] Allergy Mild Rash Verified 10/11/22 11:43 - Social History Does the pt smoke?: No Smoking Status: Never smoker Does the pt drink ETOH?: Yes Does the pt have substance abuse?: No - Immunizations Immunizations are current?: Yes - POLST Patient has POLST: No POLST Status: Full Code PD ED PE NORMAL - Vitals Vital signs reviewed: Yes - General General: Alert and oriented X 3, No acute distress - Derm Derm: Normal color, Warm and dry - Extremities Extremities: Other (He has cellulitis of the 2 remaining toes of the left foot. No crepitance, no pain out of proportion to exam.) - Neuro Neuro: Alert and oriented X 3 Results - Vitals Vitals: Vital Signs - 24 hr 10/11/22 10/11/22 10/11/22 11:38 12:58 14:09 Temperature 36.2 C L Heart Rate 101 H 84 74 Respiratory 18 14 14 Rate Blood Pressure 182/85 H 184/81 H O2 Saturation 98 97 98 10/11/22 10/11/22 14:39 15:00 Temperature Heart Rate 90 79 Respiratory 14 12 Rate Blood Pressure 151/101 H 169/87 H O2 Saturation 98 99 Oxygen O2 Source Room air - Rads (name of study) L foot 3v Radiology: Final report received, EMP read indepedently PD Medical Decision Making - ED course ED course: 57-year-old gentleman who was seen last night told return today for second dose of IV antibiotics. Here he was administered vancomycin and Rocephin. The cellulitis is worse, that said, its been well under 24 hours since his first dose of antibiotics so this does not yet indicate treatment failure. Close watchful waiting was advised. No evidence of osteomyelitis on x-ray. Departure - Departure Disposition: 01 Home, Self Care Clinical Impression: Type 2 diabetes mellitus with left diabetic foot infection Condition: Good Record reviewed to determine appropriate education?: Yes Instructions: Diabetic Foot Ulcer Dc Prescriptions: Amox/Clav 875/125 [Augmentin] 1 each PO Q12H #20 tablet Comments: Call your doctor to arrange a follow-up appointment, make the next available appointment. In the interim, return anytime if worse or if new symptoms develop. Discharge Date/Time: 10/11/22 15:10
[2022-10-11] MEDS: MORPHINE 10 MG/ML VIAL IVP STA (12:37)
[2022-10-11] MEDS: VANCOMYCIN INJ 2 GM in SODIUM CHLORIDE 0.9% 500 ML IV STA (12:51)
--- NOTE | 2022-10-11 13:31 | XRAY Report ---
PROCEDURE: Foot 3 View LT INDICATIONS: Foot infection TECHNIQUE: 3 views of the foot were acquired. COMPARISON: None FINDINGS: Bones: No fractures or dislocations. Degenerative changes of the interphalangeal joints. Status post amputation at the metatarsophalangeal joints of the second and fourth ray and transmetatarsal amputa tion distally of the fifth ray. No suspicious bony lesions. No cortical destruction or other evidenc e of osteomyelitis. No soft tissue gas. No radiopaque foreign bodies. Soft tissues: No tibiotalar joint effusion. Achilles tendon appears normal. IMPRESSION: No evidence of osteomyelitis. Reviewed by: Alex Brown on 10/11/2022 1:29 PM [facility] Approved by: Alex Brown on 10/11/2022 1:29 PM [facility] Station ID: [id number]
[2022-10-11] MEDS: cefTRIAXone 1 GM in SODIUM CHLORIDE 0.9% MINIBAG 100 ML IV STA (14:39)
[2022-10-11 15:03] VITALS: BP 169/87
== END 2022-10-11 15:10 | disposition home or self-care (01) ==
LOC: ED 11:33
DX: E11.42 Type 2 diabetes mellitus with diabetic polyneuropathy (principal); E11.628 Type 2 diabetes mellitus with other skin complications; L03.032 Cellulitis of left toe; Z79.4 Long term (current) use of insulin; I10 Essential (primary) hypertension
CPT/HCPCS: 36415; 73630; 80053; 83690; 85025; 96365; 96366; 96367; 96375; 96376; 99283; 99284; J1815; J3370

== ENCOUNTER 2022-10-17 07:03 | Outpatient (CLI) | payer MEDICARE ==
[2022-10-18] MEDS ORDERED: GADOBUTROL 10 MMOL/10 ML VIAL ONE (07:19)
== END 2022-10-17 07:04 | disposition home or self-care (01) ==
LOC: DI 07:03
PROVIDERS: ATTEND Physician Assistant
DX: Z53.9 Procedure and treatment not carried out, unspecified reason (principal)

== ENCOUNTER 2022-10-18 09:34 | Outpatient (CLI) | payer MEDICARE ==
[2022-10-18] MEDS ORDERED: GADOBUTROL 10 MMOL/10 ML VIAL IVP ONE (10:57)
--- NOTE | 2022-10-18 15:21 | MRI Report ---
PROCEDURE: FOOT W/WO - LT INDICATIONS: INFECTION OF FOOT DUE TO DM CONTRAST: GADAVIST 8.4 ML TECHNIQUE: Noncontrast sagittal T1 spin echo and T2 fast spin echo with fat saturation, long-axis T1 spin echo a nd T2 fast spin echo with fat saturation; short-axis T1 spin echo, proton density fast spin echo, and T2 fast spin echo with fat saturation through the forefoot. Post-contrast short axis, long axis, an d sagittal T1 spin echo with fat saturation through the forefoot. COMPARISON: 10/11/2022, 09/25/2022, MRI of right foot dated 07/08/2022. FINDINGS: Image quality: Excellent. Bones and joints: Again noted is prior amputation of second, fourth and fifth toes at the level of se cond and fourth metatarsal heads and distal fifth metatarsal shaft. Surgical margin appears to be мария an without bony erosion or edema. There is extensive edema involving first distal phalanx with subtle bony erosive changes involving first distal phalangeal tuft concerning for osteomyelitis in this are a. There is also edema seen involving third distal phalanx. After IV contrast infusion, there is sugg estion of contrast enhancement in these areas concerning for osteomyelitis. Chronic appearing remodel ing and edema is again seen involving third metatarsal head without definite bony erosive changes. Os teoarthritic changes are noted involving third MTP joint, first interphalangeal joint, third proximal and distal interphalangeal joints. No other area of abnormal marrow signal or enhancement is seen. Soft tissues: Soft tissue edema and swelling surrounding the toe and third toe are seen. No discrete drainable abscess collection is seen. T2 hyperintense signal throughout included plantar foot muscles are noted suggestive of myositis. No discrete intramuscular abscess collection. Midfoot and forefoot tendons are grossly intact. Lisfranc ligament is intact. IMPRESSION: 1. Prior amputation of second, fourth and fifth toes with clean surgical margin. No evidence of recur rent osteomyelitis are noted in these areas. 2. Suggestion of osteomyelitis involving first and third distal phalanges with subtle erosive changes seen involving first distal phalangeal tuft. 3. Osteoarthritic changes are noted in forefoot joints most notably at third MTP joint with suggestio n of remodeling at the third metatarsal head and mild edema. No definite bony erosion is seen in thir d metatarsal head to suggest osteomyelitis. No acute fracture or dislocation. 4. Cellulitis involving midfoot and forefoot particularly surrounding distal portion of first and thi rd toes. No discrete drainable abscess collection. Reviewed by: Sg Walsh MD on 10/18/2022 3:19 PM PST Approved by: Sg Walsh MD on 10/18/2022 3:19 PM PST Station ID: [id number]
== END 2022-10-18 09:35 | disposition home or self-care (01) ==
LOC: DI 09:34
PROVIDERS: ATTEND Physician Assistant
DX: E11.628 Type 2 diabetes mellitus with other skin complications (principal); L03.032 Cellulitis of left toe; L03.116 Cellulitis of left lower limb; M85.872 Other specified disorders of bone density and structure, left ankle and foot; M19.072 Primary osteoarthritis, left ankle and foot; Z89.422 Acquired absence of other left toe(s)
CPT/HCPCS: 73720; A9585

== ENCOUNTER 2022-10-18 16:18 | Emergency (ER) | payer MEDICARE, OTHER ==
--- OUTSIDE RECORDS SUMMARY | 2022-10-18 16:43 | EXTERNAL MEDICAL SUMMARY RPT | Continuity of Care Document ---
:1965 Author Organization [facility] Address [address] [place] [address] Phone Care Team Providers Name Role Phone Ifrah Loya Unavailable Unavailable Allergies and Intolerances date description facility type (no date) [facility] (unknown) Encounters No information. Functional Status No information. Immunizations No information. Medications No information. Problems date description facility 2022-10-13 00:00 Left against medical advice [facility] Procedures No information. Results/Labs test date author facility value unit interpret ation Result panel 1 (unknown) (no date) ([facility] Result panel 2 (unknown) (no date) (unknown[facility]) Result panel 3 (unknown) (no date) (unknown[facility]) Result panel 4 (unknown) (no date) (unknown[facility]) Result panel 5 (unknown) (no date) (unknown[facility]) Result panel 6 (unknown) (no date) (unknown[facility]) Result panel 7 (unknown) (no date) (unknown[facility]) Result panel 8 (unknown) (no date) (unknown[facility]) Result panel 9 (unknown) (no date) (unknown[facility]) Result panel 10 (unknown) (no date) (unknown[facility]) Result panel 11 (unknown) (no date) (unknown[facility]) Result panel 12 (unknown) (no date) (unknown[facility]) Result panel 13 (unknown) (no date) (unknown[facility]) Result panel 14 (unknown) (no date) (unknown[facility]) Result panel 15 (unknown) (no date) (unknown[facility]) Result panel 16 (unknown) (no date) (unknown[facility]) Result panel 17 (unknown) (no date) (unknown[facility]) Result panel 18 (unknown) (no date) (unknown[facility]) Result panel 19 (unknown) (no date) (unknown[facility]) Result panel 20 (unknown) (no date) (unknown[facility]) Result panel 21 (unknown) (no date) (unknown[facility]) Result panel 22 (unknown) (no date) (unknown[facility]) Result panel 23 (unknown) (no date) (unknown[facility]) Result panel 24 (unknown) (no date) (unknown[facility]) Result panel 25 (unknown) (no date) (unknown[facility]) Result panel 26 (unknown) (no date) (unknown) [facility]) Result panel 27 (unknown) (no date) (unknown[facility]) Result panel 28 (unknown) (no date) (unknown[facility]) Result panel 29 (unknown) (no date) (unknown[facility]) Result panel 30 (unknown) (no date) (unknown[facility]) Result panel 31 (unknown) (no date) (unknown[facility]) Result panel 32 (unknown) (no date) (unknown[facility]) Result panel 33 (unknown) (no date) (unknown) [facility]) Result panel 34 (unknown) (no date) (unknown) [facility]) Result panel 35 (unknown) (no date) (unknown) [facility]) Result panel 36 (unknown) (no date) (unknown) [facility]) Result panel 37 (unknown) (no date) (unknown) [facility]) Result panel 38 (unknown) (no date) (unknown) [facility]) Result panel 39 (unknown) (no date) (unknown) [facility]) Result panel 40 (unknown) (no date) (unknown) [facility]) Result panel 41 (unknown) (no date) (unknown[facility]) Result panel 42 (unknown) (no date) (unknown) [facility]) Result panel 43 (unknown) (no date) (unknown) [facility]) Result panel 44 (unknown) (no date) (unknown) [facility]) Result panel 45 (unknown) (no date) (unknown) [facility]) Result panel 46 (unknown) (no date) (unknown) [facility]) Result panel 47 (unknown) (no date) (unknown) [facility]) Result panel 48 (unknown) (no date) (unknown[facility]) Result panel 49 (unknown) (no date) (unknown) [facility]) Result panel 50 (unknown) (no date) (unknown[facility]) Result panel 51 (unknown) (no date) (unknown) [facility]) Result panel 52 (unknown) (no date) (unknown) [facility]) Result panel 53 (unknown) (no date) (unknown) [facility]) Result panel 54 (unknown) (no date) (unknown) [facility]) Result panel 55 (unknown) (no date) (unknown) [facility]) Result panel 56 (unknown) (no date) (unknown) [facility]) Result panel 57 (unknown) (no date) (unknown) [facility]) Result panel 58 (unknown) (no date) (unknown) [facility]) Result panel 59 (unknown) (no date) (unknown[facility]) Result panel 60 (unknown) (no date) (unknown) [facility]) Result panel 61 (unknown) (no date) (unknown[facility]) Result panel 62 (unknown) (no date) (unknown) [facility]) Result panel 63 (unknown) (no date) (unknown[facility]) Result panel 64 (unknown) (no date) (unknown[facility]) Result panel 65 (unknown) (no date) (unknown[facility]) Result panel 66 (unknown) (no date) (unknown) [facility]) Result panel 67 (unknown) (no date) (unknown[facility]) Result panel 68 (unknown) (no date) (unknown[facility]) Result panel 69 (unknown) (no date) (unknown[facility]) Result panel 70 (unknown) (no date) (unknown[facility]) Result panel 71 (unknown) (no date) (unknown) [facility]) Result panel 72 (unknown) (no date) (unknown[facility]) Result panel 73 (unknown) (no date) (unknown[facility]) Result panel 74 (unknown) (no date) (unknown[facility]) Result panel 75 (unknown) (no date) (unknown) [facility]) Result panel 76 (unknown) (no date) (unknown[facility]) Result panel 77 (unknown) (no date) (unknown[facility]) Result panel 78 (unknown) (no date) (unknown[facility]) Result panel 79 (unknown) (no date) (unknown) (unknown) (no value) (units (un known) unknown) (unknown) (no date) (unknown) (unknown) 10/13/22 (units (unkn own) unknown) (unknown) (no date) (unknown) (unknown) 07:38 (units (unkn own) unknown) (unknown) (no date) (unknown) (unknown) 812 (units (unkn own) unknown) (unknown) (no date) (unknown) (unknown) Age/Sex: 57 / (units (unknown) M unknown) (unknown) (no date) (unknown) (unknown) Blood Pressure (units (unknown) 223/102 H unknown) 10/13/22 07:38 (unknown) (no date) (unknown) (unknown) Blood Pressure (units (unknown) 223/102 H unknown) (unknown) (no date) (unknown) (unknown) Chief (units (unkn own) complaint: unknown) Diabetic Problem (unknown) (no date) (unknown) (unknown) Course (units (unkn own) unknown) (unknown) (no date) (unknown) (unknown) : (units (unkn own) 1965 unknown) Acct:[id number] (unknown) (no date) (unknown) (unknown) Date of (units (unkn own) Service: unknown) 10/13/22 (unknown) (no date) (unknown) (unknown) Departure (units (unk nown) unknown) (unknown) (no date) (unknown) (unknown) Discharge Plan (units (unknown) unknown) (unknown) (no date) (unknown) (unknown) ER Physician: (units (unknown) Christa Granda unknown) D.O. (unknown) (no date) (unknown) (unknown) Emergency (units (unk nown) Report unknown) (unknown) (no date) (unknown) (unknown) Exam (units (unkn own) unknown) (unknown) (no date) (unknown) (unknown) General (units (unkn own) unknown) (unknown) (no date) (unknown) (unknown) HPI - General (units (unknown) Adult unknown) (unknown) (no date) (unknown) (unknown) Initial Vital (units (unknown) Signs unknown) (unknown) (no date) (unknown) (unknown) Initial Vital (units (unknown) Signs: unknown) (unknown) (no date) (unknown) (unknown) [place] (units (unkn own) [facility] [address] unknown) [address] [place] [address] (unknown) (no date) (unknown) (unknown) Oxygen (units (unkn own) Delivery Method unknown) 10/13/22 07:38 (unknown) (no date) (unknown) (unknown) Oxygen (units (unkn own) Delivery Method unknown) Room Air (unknown) (no date) (unknown) (unknown) Patient: (units (unkn own) Elijah Aguilar unknown) MR#: [id number] (unknown) (no date) (unknown) (unknown) Pulse Oximetry (units (unknown) 97 10/13/22 unknown) 07:38 (unknown) (no date) (unknown) (unknown) Pulse Oximetry (units (unknown) 97 unknown) (unknown) (no date) (unknown) (unknown) Pulse Rate 84 (units (unknown) 10/13/22 07:38 unknown) (unknown) (no date) (unknown) (unknown) Pulse Rate 84 (units (unknown) unknown) (unknown) (no date) (unknown) (unknown) Referrals: (units (un known) unknown) (unknown) (no date) (unknown) (unknown) Respiratory (units (u nknown) Rate 20 unknown) 10/13/22 07:38 (unknown) (no date) (unknown) (unknown) Respiratory (units (u nknown) Rate 20 unknown) (unknown) (no date) (unknown) (unknown) Signed By: (units (un known) unknown) (unknown) (no date) (unknown) (unknown) Stated (units (unkn own) complaint: unknown) infected left foot, type 2 diabetic (unknown) (no date) (unknown) (unknown) Temperature (units (u nknown) 98.6 F 10/13/22 unknown) 07:38 (unknown) (no date) (unknown) (unknown) Temperature (units (u nknown) 98.6 F unknown) (unknown) (no date) (unknown) (unknown) Time Seen by (units ( unknown) Provider: unknown) 10/13/22 07:51 (unknown) (no date) (unknown) (unknown) Vital Signs - (units (unknown) 8 hr unknown) (unknown) (no date) (unknown) (unknown) Vital Signs (units (u nknown) unknown) (unknown) (no date) (unknown) (unknown) Vital signs: (units ( unknown) unknown) (unknown) (no date) (unknown) (unknown) VincenzoIfrah (units (unknown) , PA-García [Primary unknown) Care Provider] Result panel 80 (unknown) (no (unknown) (unknown) (no value) (units (unk nown) date) unknown) (unknown) (no (unknown) (unknown) 10/13/22 (units (unkno wn) date) unknown) (unknown) (no (unknown) (unknown) 07:38 (units (unkno wn) date) unknown) (unknown) (no (unknown) (unknown) 812 (units (unkno wn) date) unknown) (unknown) (no (unknown) (unknown) Age/Sex: 57 / M (units (unknown) date) unknown) (unknown) (no (unknown) (unknown) Blood Pressure (units (unknown) date) 223/102 H 10/13/22 unknown) 07:38 (unknown) (no (unknown) (unknown) Blood Pressure (units (unknown) date) 223/102 H unknown) (unknown) (no (unknown) (unknown) CARDIOVASCULAR: (units (unknown) date) Regular rate and unknown) rhythm without murmurs, rubs or gallops. (unknown) (no (unknown) (unknown) Chief complaint: (units (unknown) date) Diabetic Problem unknown) (unknown) (no (unknown) (unknown) Course (units (unkno wn) date) unknown) (unknown) (no (unknown) (unknown) : 1965 (units (unknown) date) Acct:[id number] unknown) (unknown) (no (unknown) (unknown) Date of Service: (units (unknown) date) 10/13/22 unknown) (unknown) (no (unknown) (unknown) Departure (units (unkn own) date) unknown) (unknown) (no (unknown) (unknown) Discharge Plan (units (unknown) date) unknown) (unknown) (no (unknown) (unknown) ER Physician: (units ( unknown) date) Christa Granda unknown) D.O. (unknown) (no (unknown) (unknown) EXTREMITIES: (units (u nknown) date) Normal range of unknown) motion, no clubbing or edema. Neurovascularly (unknown) (no (unknown) (unknown) Emergency Report (units (unknown) date) unknown) (unknown) (no (unknown) (unknown) Exam (units (unkno wn) date) unknown) (unknown) (no (unknown) (unknown) GENERAL: Alert (units (unknown) date) 57-year-old male unknown) and in no acute distress. (unknown) (no (unknown) (unknown) General (units (unkno wn) date) unknown) (unknown) (no (unknown) (unknown) HEENT: Head (units (un known) date) atraumatic,EOMI, unknown) pupils reactive, face symmetric, moist mucous (unknown) (no (unknown) (unknown) HPI - General (units ( unknown) date) Adult unknown) (unknown) (no (unknown) (unknown) HPI narrative: (units (unknown) date) unknown) (unknown) (no (unknown) (unknown) History of (units (unk nown) date) Present Illness unknown) (unknown) (no (unknown) (unknown) Initial Vital (units ( unknown) date) Signs unknown) (unknown) (no (unknown) (unknown) Initial Vital (units ( unknown) date) Signs: unknown) (unknown) (no (unknown) (unknown) [facility] (units (unknown) date) [address] [place] [address] unknown) [place] [address] (unknown) (no (unknown) (unknown) NEUROLOGICAL: (units ( unknown) date) Alert and oriented unknown) x4.Normal gait and speech. (unknown) (no (unknown) (unknown) Oxygen Delivery (units (unknown) date) Method 10/13/22 unknown) 07:38 (unknown) (no (unknown) (unknown) Oxygen Delivery (units (unknown) date) Method Room Air unknown) (unknown) (no (unknown) (unknown) Patient is a (units (un known) date) 57-year-old male unknown) with uncontrolled diabetes right foot has all toes (unknown) (no (unknown) (unknown) Patient: (units (unkno wn) date) Elijah Aguilar MR#: unknown) [id number] (unknown) (no (unknown) (unknown) Pulse Oximetry 97 (units (unknown) date) 10/13/22 07:38 unknown) (unknown) (no (unknown) (unknown) Pulse Oximetry 97 (units (unknown) date) unknown) (unknown) (no (unknown) (unknown) Pulse Rate 84 (units ( unknown) date) 10/13/22 07:38 unknown) (unknown) (no (unknown) (unknown) Pulse Rate 84 (units ( unknown) date) unknown) (unknown) (no (unknown) (unknown) RESPIRATORY: (units (u nknown) date) Breath sounds unknown) equal bilaterally, no wheezes rales or rhonchi. (unknown) (no (unknown) (unknown) Referrals: (units (unk nown) date) unknown) (unknown) (no (unknown) (unknown) Respiratory Rate (units (unknown) date) 20 10/13/22 07:38 unknown) (unknown) (no (unknown) (unknown) Respiratory Rate (units (unknown) date) 20 unknown) (unknown) (no (unknown) (unknown) SKIN: Left great (units (unknown) date) toe is unknown) erythematous mildly swollen chronic wounds on the 3rd (unknown) (no (unknown) (unknown) Signed By: (units (unk nown) date) unknown) (unknown) (no (unknown) (unknown) Stated complaint: (units (unknown) date) infected left unknown) foot, type 2 diabetic (unknown) (no (unknown) (unknown) Temperature 98.6 (units (unknown) date) F 10/13/22 07:38 unknown) (unknown) (no (unknown) (unknown) Temperature 98.6 (units (unknown) date) F unknown) (unknown) (no (unknown) (unknown) Time Seen by (units (u nknown) date) Provider: 10/13/22 unknown) 07:51 (unknown) (no (unknown) (unknown) Vital Signs - 8 (units (unknown) date) hr unknown) (unknown) (no (unknown) (unknown) Vital Signs (units (un known) date) unknown) (unknown) (no (unknown) (unknown) Vital signs: (units (u nknown) date) unknown) (unknown) (no (unknown) (unknown) Ifrah Loya, (units (unknown) date) [facility] [[facility] unknown) Provider] (unknown) (no (unknown) (unknown) amoxicillin and (units (unknown) date) something else. He unknown) is quite upset because they will not keep (unknown) (no (unknown) (unknown) amputated left (units (unknown) date) foot the right unknown) great toe has been erythematous for the last 4 (unknown) (no (unknown) (unknown) be available till (units (unknown) date) later this month. unknown) He says it is still painful. Denies fever (unknown) (no (unknown) (unknown) days. He has been (units (unknown) date) to [facility] general unknown) last 2 days in a row. He received IV (unknown) (no (unknown) (unknown) general have been (units (unknown) date) requested. unknown) (unknown) (no (unknown) (unknown) him. He denies (units (unknown) date) any fever or unknown) chills. There is no streaking up his leg. He is (unknown) (no (unknown) (unknown) intact (units (unkno wn) date) unknown) (unknown) (no (unknown) (unknown) membranes (units (unkn own) date) unknown) (unknown) (no (unknown) (unknown) or chills. No (units ( unknown) date) other symptoms. unknown) Noted to be hypertensive. Records from [facility] (unknown) (no (unknown) (unknown) toe. All other (units (unknown) date) toes have been unknown) amputated there is no streaking no fluctuation (unknown) (no (unknown) (unknown) upset because his (units (unknown) date) orthopedic surgeon unknown) and his PCP have been unavailable and will (unknown) (no (unknown) (unknown) vancomycin (units (unk nown) date) yesterday his unknown) antibiotics were switched he says he was put on Result panel 81 (unknown) (no date) (unknown) (unknown) 1.5 % (unkn own) (unknown) (no date) (unknown) (unknown) 100 /ul (unkn own) (unknown) (no date) (unknown) (unknown) 1000 /ul (unkn own) (unknown) (no date) (unknown) (unknown) 13.1 % (unkn own) (unknown) (no date) (unknown) (unknown) 13.3 % (unkn own) (unknown) (no date) (unknown) (unknown) 15.2 g/dl (unkn own) (unknown) (no date) (unknown) (unknown) 1500 /ul (unkn own) (unknown) (no date) (unknown) (unknown) 19.2 % (unkn own) (unknown) (no date) (unknown) (unknown) 2.9 % (unkn own) (unknown) (no date) (unknown) (unknown) 200 /ul (unkn own) (unknown) (no date) (unknown) (unknown) 280 x10 3/ul (unkn own) (unknown) (no date) (unknown) (unknown) 32.7 pg (unkn own) (unknown) (no date) (unknown) (unknown) 35.0 % (unkn own) (unknown) (no date) (unknown) (unknown) 4.66 x10 6/ul (unkn own) (unknown) (no date) (unknown) (unknown) 43.4 % (unkn own) (unknown) (no date) (unknown) (unknown) 4800 /ul (unkn own) (unknown) (no date) (unknown) (unknown) 63.3 % (unkn own) (unknown) (no date) (unknown) (unknown) 7.6 x10 3/ul (unkn own) (unknown) (no date) (unknown) (unknown) 93.2 fl (unkn own) Result panel 82 (unknown) (no date) (unknown) (unknown) > 60 ml/min (unkn own) (unknown) (no date) (unknown) (unknown) > 60 ml/min (unkn own) (unknown) (no date) (unknown) (unknown) 0.3 mg/dl (unkn own) (unknown) (no date) (unknown) (unknown) 0.59 mg/dl (unkn own) (unknown) (no date) (unknown) (unknown) 1.0 (units unknown) (unknown) (unknown) (no date) (unknown) (unknown) 110 u/l (unkn own) (unknown) (no date) (unknown) (unknown) 134 mmol/l (unkn own) (unknown) (no date) (unknown) (unknown) 17 iu/l (unkn own) (unknown) (no date) (unknown) (unknown) 18 iu/l (unkn own) (unknown) (no date) (unknown) (unknown) 21 mg/dl (unkn own) (unknown) (no date) (unknown) (unknown) 268 mg/dl (unkn own) (unknown) (no date) (unknown) (unknown) 268 mg/dl (unkn own) (unknown) (no date) (unknown) (unknown) 27 mmol/l (unkn own) (unknown) (no date) (unknown) (unknown) 3.9 g/dl (unkn own) (unknown) (no date) (unknown) (unknown) 35.6 (units unknown) (unknown) (unknown) (no date) (unknown) (unknown) 4.0 g/dl (unkn own) (unknown) (no date) (unknown) (unknown) 4.0 mmol/l (unkn own) (unknown) (no date) (unknown) (unknown) 7.9 g/dl (unkn own) (unknown) (no date) (unknown) (unknown) 9.2 mg/dl (unkn own) (unknown) (no date) (unknown) (unknown) 98 mmol/l (unkn own) Result panel 83 (unknown) (no date) (unknown) (unknown) 1.4 mmol/l (unkn own) Result panel 84 (unknown) (no date) (unknown) (unknown) < 5.0 ug/ml (unkn own) Result panel 85 (unknown) (no date) (unknown) (unknown) > 60 ml/min (unkn own) (unknown) (no date) (unknown) (unknown) > 60 ml/min (unkn own) (unknown) (no date) (unknown) (unknown) 0.06 ng/ml (unkn own) (unknown) (no date) (unknown) (unknown) 0.06 ng/ml (unkn own) (unknown) (no date) (unknown) (unknown) 0.3 mg/dl (unkn own) (unknown) (no date) (unknown) (unknown) 0.59 mg/dl (unkn own) (unknown) (no date) (unknown) (unknown) 1.0 (units unknown) (unknown) (unknown) (no date) (unknown) (unknown) 110 u/l (unkn own) (unknown) (no date) (unknown) (unknown) 134 mmol/l (unkn own) (unknown) (no date) (unknown) (unknown) 17 iu/l (unkn own) (unknown) (no date) (unknown) (unknown) 18 iu/l (unkn own) (unknown) (no date) (unknown) (unknown) 21 mg/dl (unkn own) (unknown) (no date) (unknown) (unknown) 268 mg/dl (unkn own) (unknown) (no date) (unknown) (unknown) 268 mg/dl (unkn own) (unknown) (no date) (unknown) (unknown) 27 mmol/l (unkn own) (unknown) (no date) (unknown) (unknown) 3.9 g/dl (unkn own) (unknown) (no date) (unknown) (unknown) 35.6 (units unknown) (unknown) (unknown) (no date) (unknown) (unknown) 4.0 g/dl (unkn own) (unknown) (no date) (unknown) (unknown) 4.0 mmol/l (unkn own) (unknown) (no date) (unknown) (unknown) 7.9 g/dl (unkn own) (unknown) (no date) (unknown) (unknown) 9.2 mg/dl (unkn own) (unknown) (no date) (unknown) (unknown) 98 mmol/l (unkn own) Result panel 86 (unknown) (no (unknown) (unknown) (no value) (units (unk nown) date) unknown) (unknown) (no (unknown) (unknown) <Electronically (units (unknown) date) signed by Christa Granda D.O.> (unknown) (no (unknown) (unknown) 10/13/22 10/13/22 (units (unknown) date) 10/13/22 unknown) Range/Units (unknown) (no (unknown) (unknown) 10/13/22 08:00 (units (unknown) date) unknown) (unknown) (no (unknown) (unknown) 10/13/22 08:22 (units (unknown) date) unknown) (unknown) (no (unknown) (unknown) 10/13/22 1546 (units ( unknown) date) unknown) (unknown) (no (unknown) (unknown) 10/13/22 (units (unkno wn) date) Range/Units unknown) (unknown) (no (unknown) (unknown) 10/13/22 (units (unkno wn) date) unknown) (unknown) (no (unknown) (unknown) 07:38 (units (unkno wn) date) unknown) (unknown) (no (unknown) (unknown) 08:00 08:00 08:00 (units (unknown) date) unknown) (unknown) (no (unknown) (unknown) 08:00 (units (unkno wn) date) unknown) (unknown) (no (unknown) (unknown) 812 (units (unkno wn) date) unknown) (unknown) (no (unknown) (unknown) ALT (<50) IU/L (units (unknown) date) unknown) (unknown) (no (unknown) (unknown) ALT 17 (<50) IU/L (units (unknown) date) unknown) (unknown) (no (unknown) (unknown) AST (17-59) IU/L (units (unknown) date) unknown) (unknown) (no (unknown) (unknown) AST 18 (17-59) (units (unknown) date) IU/L unknown) (unknown) (no (unknown) (unknown) Admin: 10/13/22 (units (unknown) date) 08:52 Dose: 250 unknown) mls/hr (unknown) (no (unknown) (unknown) Age/Sex: 57 / M (units (unknown) date) unknown) (unknown) (no (unknown) (unknown) Albumin (3.5-5.0) (units (unknown) date) g/dL unknown) (unknown) (no (unknown) (unknown) Albumin 3.9 (units (un known) date) (3.5-5.0) g/dL unknown) (unknown) (no (unknown) (unknown) Albumin/Globulin (units (unknown) date) Ratio (1.0-2.8) unknown) (unknown) (no (unknown) (unknown) Albumin/Globulin (units (unknown) date) Ratio 1.0 unknown) (1.0-2.8) (unknown) (no (unknown) (unknown) Alkaline (units (unkno wn) date) Phosphatase unknown) (38-126) U/L (unknown) (no (unknown) (unknown) Alkaline (units (unkno wn) date) Phosphatase 110 unknown) (38-126) U/L (unknown) (no (unknown) (unknown) Allergies (units (unkn own) date) unknown) (unknown) (no (unknown) (unknown) Allergy/AdvReac (units (unknown) date) Type Severity unknown) Reaction Status Date / Time (unknown) (no (unknown) (unknown) BUN (9-20) mg/dL (units (unknown) date) unknown) (unknown) (no (unknown) (unknown) BUN 21 H (9-20) (units (unknown) date) mg/dL unknown) (unknown) (no (unknown) (unknown) BUN/Creatinine (units (unknown) date) Ratio (6-22) unknown) (unknown) (no (unknown) (unknown) BUN/Creatinine (units (unknown) date) Ratio 35.6 H unknown) (6-22) (unknown) (no (unknown) (unknown) Baso # (Auto) (units ( unknown) date) (0-100) /uL unknown) (unknown) (no (unknown) (unknown) Baso # (Auto) 100 (units (unknown) date) (0-100) /uL unknown) (unknown) (no (unknown) (unknown) Baso % (Auto) (units ( unknown) date) (0-2) % unknown) (unknown) (no (unknown) (unknown) Baso % (Auto) 1.5 (units (unknown) date) (0-2) % unknown) (unknown) (no (unknown) (unknown) Blood Culture (units ( unknown) date) Stat unknown) (unknown) (no (unknown) (unknown) Blood Pressure (units (unknown) date) 223/102 H 10/13/22 unknown) 07:38 (unknown) (no (unknown) (unknown) Blood Pressure (units (unknown) date) 223/102 H unknown) (unknown) (no (unknown) (unknown) CARDIOVASCULAR: (units (unknown) date) Regular rate and unknown) rhythm without murmurs, rubs or gallops. (unknown) (no (unknown) (unknown) CBC Auto Diff (units ( unknown) date) [Complete Blood unknown) Count AUTO DIFF] Stat (unknown) (no (unknown) (unknown) CMP (units (unkno wn) date) [Comprehensive unknown) Metabolic Panel] Stat (unknown) (no (unknown) (unknown) Calcium (units (unkno wn) date) (8.4-10.2) mg/dL unknown) (unknown) (no (unknown) (unknown) Calcium 9.2 (units (un known) date) (8.4-10.2) mg/dL unknown) (unknown) (no (unknown) (unknown) Carbon Dioxide (units (unknown) date) (22-32) mmol/L unknown) (unknown) (no (unknown) (unknown) Carbon Dioxide 27 (units (unknown) date) (22-32) mmol/L unknown) (unknown) (no (unknown) (unknown) Chief complaint: (units (unknown) date) Diabetic Problem unknown) (unknown) (no (unknown) (unknown) Chloride (98-107) (units (unknown) date) mmol/L unknown) (unknown) (no (unknown) (unknown) Chloride 98 (units (un known) date) (98-107) mmol/L unknown) (unknown) (no (unknown) (unknown) Clinical (units (unkno wn) date) Impression: unknown) (unknown) (no (unknown) (unknown) Course (units (unkno wn) date) unknown) (unknown) (no (unknown) (unknown) Creatinine (units (unk nown) date) (0.66-1.25) mg/dL unknown) (unknown) (no (unknown) (unknown) Creatinine 0.59 L (units (unknown) date) (0.66-1.25) mg/dL unknown) (unknown) (no (unknown) (unknown) : 1965 (units (unknown) date) Acct:[id number] unknown) (unknown) (no (unknown) (unknown) Date of Service: (units (unknown) date) 10/13/22 unknown) (unknown) (no (unknown) (unknown) Departure (units (unkn own) date) unknown) (unknown) (no (unknown) (unknown) Discharge Plan (units (unknown) date) unknown) (unknown) (no (unknown) (unknown) Discontinued (units (u nknown) date) Medications unknown) (unknown) (no (unknown) (unknown) Documented By: (units (unknown) date) CTS unknown) (unknown) (no (unknown) (unknown) Documented By: RB (units (unknown) date) unknown) (unknown) (no (unknown) (unknown) ED Orders (units (unkn own) date) unknown) (unknown) (no (unknown) (unknown) ER Physician: (units ( unknown) date) Christa Granda unknown) D.O. (unknown) (no (unknown) (unknown) EXTREMITIES: (units (u nknown) date) Normal range of unknown) motion, no clubbing or edema. Neurovascularly (unknown) (no (unknown) (unknown) Emergency Report (units (unknown) date) unknown) (unknown) (no (unknown) (unknown) Eos # (Auto) (units (u nknown) date) (0-450) /uL unknown) (unknown) (no (unknown) (unknown) Eos # (Auto) 200 (units (unknown) date) (0-450) /uL unknown) (unknown) (no (unknown) (unknown) Eos % (Auto) (units (u nknown) date) (2-4) % unknown) (unknown) (no (unknown) (unknown) Eos % (Auto) 2.9 (units (unknown) date) (2-4) % unknown) (unknown) (no (unknown) (unknown) Estimated GFR > (units (unknown) date) 60 (>60) mL/min unknown) (unknown) (no (unknown) (unknown) Estimated GFR (units ( unknown) date) (>60) mL/min unknown) (unknown) (no (unknown) (unknown) Exam (units (unkno wn) date) unknown) (unknown) (no (unknown) (unknown) GENERAL: Alert (units (unknown) date) 57-year-old male unknown) and in no acute distress. (unknown) (no (unknown) (unknown) General (units (unkno wn) date) unknown) (unknown) (no (unknown) (unknown) Globulin (units (unkno wn) date) (1.7-4.1) g/dL unknown) (unknown) (no (unknown) (unknown) Globulin 4.0 (units (u nknown) date) (1.7-4.1) g/dL unknown) (unknown) (no (unknown) (unknown) Glucose (70-100) (units (unknown) date) mg/dL unknown) (unknown) (no (unknown) (unknown) Glucose 268 H (units ( unknown) date) (70-100) mg/dL unknown) (unknown) (no (unknown) (unknown) HEENT: Head (units (un known) date) atraumatic,EOMI, unknown) pupils reactive, face symmetric, moist mucous (unknown) (no (unknown) (unknown) HPI - General (units ( unknown) date) Adult unknown) (unknown) (no (unknown) (unknown) HPI narrative: (units (unknown) date) unknown) (unknown) (no (unknown) (unknown) Hct (41-53) % (units ( unknown) date) unknown) (unknown) (no (unknown) (unknown) Hct 43.4 (41-53) (units (unknown) date) % unknown) (unknown) (no (unknown) (unknown) Hgb (13.5-17.5) (units (unknown) date) g/dL unknown) (unknown) (no (unknown) (unknown) Hgb 15.2 (units (unkno wn) date) (13.5-17.5) g/dL unknown) (unknown) (no (unknown) (unknown) History of (units (unk nown) date) Present Illness unknown) (unknown) (no (unknown) (unknown) I was busy seeing (units (unknown) date) other patients. unknown) But no indication of sepsis he already has (unknown) (no (unknown) (unknown) Initial Vital (units ( unknown) date) Signs unknown) (unknown) (no (unknown) (unknown) Initial Vital (units ( unknown) date) Signs: unknown) (unknown) (no (unknown) (unknown) [facility] (units (unknown) date) [address] unknown) [place] [address] (unknown) (no (unknown) (unknown) Lab Data (units (unkno wn) date) unknown) (unknown) (no (unknown) (unknown) Lab Results (units (un known) date) unknown) (unknown) (no (unknown) (unknown) Labs: (units (unkno wn) date) unknown) (unknown) (no (unknown) (unknown) Lactate (0.7-2.1) (units (unknown) date) mmol/L unknown) (unknown) (no (unknown) (unknown) Lactate (Lactic (units (unknown) date) Acid) Stat unknown) (unknown) (no (unknown) (unknown) Lactate 1.4 (units (un known) date) (0.7-2.1) mmol/L unknown) (unknown) (no (unknown) (unknown) Last Infusion: (units (unknown) date) 10/13/22 09:48 unknown) Dose: 0 mls/hr (unknown) (no (unknown) (unknown) Left against (units (u nknown) date) medical advice unknown) (unknown) (no (unknown) (unknown) Lymph # (Auto) (units (unknown) date) (1046-7016) /uL unknown) (unknown) (no (unknown) (unknown) Lymph # (Auto) (units (unknown) date) 1500 (3361-6314) unknown) /uL (unknown) (no (unknown) (unknown) Lymph % (Auto) (units (unknown) date) (25-40) % unknown) (unknown) (no (unknown) (unknown) Lymph % (Auto) (units (unknown) date) 19.2 L (25-40) % unknown) (unknown) (no (unknown) (unknown) MCH (26-34) PG (units (unknown) date) unknown) (unknown) (no (unknown) (unknown) MCH 32.7 (26-34) (units (unknown) date) PG unknown) (unknown) (no (unknown) (unknown) MCHC (30-36) % (units (unknown) date) unknown) (unknown) (no (unknown) (unknown) MCHC 35.0 (30-36) (units (unknown) date) % unknown) (unknown) (no (unknown) (unknown) MCV (80-100) fL (units (unknown) date) unknown) (unknown) (no (unknown) (unknown) MCV 93.2 (80-100) (units (unknown) date) fL unknown) (unknown) (no (unknown) (unknown) MDM Narrative (units ( unknown) date) unknown) (unknown) (no (unknown) (unknown) Medical Decision (units (unknown) date) Making unknown) (unknown) (no (unknown) (unknown) Medical decision (units (unknown) date) making narrative: unknown) (unknown) (no (unknown) (unknown) [place] # (Auto) (units ( unknown) date) (0-900) /uL unknown) (unknown) (no (unknown) (unknown) [place] # (Auto) (units ( unknown) date) 1000 H (0-900) /uL unknown) (unknown) (no (unknown) (unknown) [place] % (Auto) (units ( unknown) date) (3-14) % unknown) (unknown) (no (unknown) (unknown) [place] % (Auto) (units ( unknown) date) 13.1 (3-14) % unknown) (unknown) (no (unknown) (unknown) NEUROLOGICAL: (units ( unknown) date) Alert and oriented unknown) x4.Normal gait and speech. (unknown) (no (unknown) (unknown) Neut # (Auto) (units ( unknown) date) (5482-6345) /uL unknown) (unknown) (no (unknown) (unknown) Neut # (Auto) (units ( unknown) date) 4800 (3961-9235) unknown) /uL (unknown) (no (unknown) (unknown) Neut % (Auto) (units ( unknown) date) (50-75) % unknown) (unknown) (no (unknown) (unknown) Neut % (Auto) (units ( unknown) date) 63.3 (50-75) % unknown) (unknown) (no (unknown) (unknown) Ordered: (units (unkno wn) date) unknown) (unknown) (no (unknown) (unknown) Orders (units (unkno wn) date) unknown) (unknown) (no (unknown) (unknown) Oxygen Delivery (units (unknown) date) Method 10/13/22 unknown) 07:38 (unknown) (no (unknown) (unknown) Oxygen Delivery (units (unknown) date) Method Room Air unknown) (unknown) (no (unknown) (unknown) Patient (units (unkno wn) date) 57-year-old male unknown) chronic diabetic overall appears well. He has (unknown) (no (unknown) (unknown) Patient (units (unkno wn) date) Disposition: Left unknown) Against Medical Advice (unknown) (no (unknown) (unknown) Patient is a (units (un known) date) 57-year-old male unknown) with uncontrolled diabetes right foot has all toes (unknown) (no (unknown) (unknown) Patient: (units (unkno wn) date) Elijah Aguilar MR#: unknown) [id number] (unknown) (no (unknown) (unknown) Plt Count (units (unkn own) date) (150-400) X103/uL unknown) (unknown) (no (unknown) (unknown) Plt Count 280 (units ( unknown) date) (150-400) X103/uL unknown) (unknown) (no (unknown) (unknown) Potassium (units (unkn own) date) (3.4-5.1) mmol/L unknown) (unknown) (no (unknown) (unknown) Potassium 4.0 (units ( unknown) date) (3.4-5.1) mmol/L unknown) (unknown) (no (unknown) (unknown) Procalcitonin (units ( unknown) date) (<0.5) ng/mL unknown) (unknown) (no (unknown) (unknown) Procalcitonin (units ( unknown) date) 0.06 (<0.5) ng/mL unknown) (unknown) (no (unknown) (unknown) Procalcitonin (units ( unknown) date) Stat unknown) (unknown) (no (unknown) (unknown) Pulse Oximetry 97 (units (unknown) date) 10/13/22 07:38 unknown) (unknown) (no (unknown) (unknown) Pulse Oximetry 97 (units (unknown) date) unknown) (unknown) (no (unknown) (unknown) Pulse Rate 84 (units ( unknown) date) 10/13/22 07:38 unknown) (unknown) (no (unknown) (unknown) Pulse Rate 84 (units ( unknown) date) unknown) (unknown) (no (unknown) (unknown) RBC (4.5-5.9) (units ( unknown) date) X106/uL unknown) (unknown) (no (unknown) (unknown) RBC 4.66 (units (unkno wn) date) (4.5-5.9) X106/uL unknown) (unknown) (no (unknown) (unknown) RDW (11.6-14.8) % (units (unknown) date) unknown) (unknown) (no (unknown) (unknown) RDW 13.3 (units (unkno wn) date) (11.6-14.8) % unknown) (unknown) (no (unknown) (unknown) RESPIRATORY: (units (u nknown) date) Breath sounds unknown) equal bilaterally, no wheezes rales or rhonchi. (unknown) (no (unknown) (unknown) ROS Unobtainable: (units (unknown) date) All systems unknown) reviewed + are unremarkable except as noted in HPI (unknown) (no (unknown) (unknown) Related Data (units (u nknown) date) unknown) (unknown) (no (unknown) (unknown) Respiratory Rate (units (unknown) date) 20 10/13/22 07:38 unknown) (unknown) (no (unknown) (unknown) Respiratory Rate (units (unknown) date) 20 unknown) (unknown) (no (unknown) (unknown) Result diagrams: (units (unknown) date) unknown) (unknown) (no (unknown) (unknown) Review of Systems (units (unknown) date) unknown) (unknown) (no (unknown) (unknown) SKIN: Left great (units (unknown) date) toe is unknown) erythematous mildly swollen chronic wounds on the 3rd (unknown) (no (unknown) (unknown) Signed By: (units (unk nown) date) unknown) (unknown) (no (unknown) (unknown) Sodium (137-145) (units (unknown) date) mmol/L unknown) (unknown) (no (unknown) (unknown) Sodium 134 L (units (u nknown) date) (137-145) mmol/L unknown) (unknown) (no (unknown) (unknown) Stand Alone (units (un known) date) Forms: Against unknown) Medical Advice (unknown) (no (unknown) (unknown) Stated complaint: (units (unknown) date) infected left unknown) foot, type 2 diabetic (unknown) (no (unknown) (unknown) Stop: 10/13/22 (units (unknown) date) 09:22 unknown) (unknown) (no (unknown) (unknown) Temperature 98.6 (units (unknown) date) F 10/13/22 07:38 unknown) (unknown) (no (unknown) (unknown) Temperature 98.6 (units (unknown) date) F unknown) (unknown) (no (unknown) (unknown) Time Seen by (units (u nknown) date) Provider: 10/13/22 unknown) 07:51 (unknown) (no (unknown) (unknown) Total Bilirubin (units (unknown) date) (0.2-1.3) mg/dL unknown) (unknown) (no (unknown) (unknown) Total Bilirubin (units (unknown) date) 0.3 (0.2-1.3) unknown) mg/dL (unknown) (no (unknown) (unknown) Total Protein (units ( unknown) date) (6.3-8.2) g/dL unknown) (unknown) (no (unknown) (unknown) Total Protein 7.9 (units (unknown) date) (6.3-8.2) g/dL unknown) (unknown) (no (unknown) (unknown) Vancomycin HCl (units (unknown) date) (Vancomycin) 1,250 unknown) mg in 250 mls @ 250 mls/hr IV NOW ONE (unknown) (no (unknown) (unknown) Vancomycin Trough (units (unknown) date) < 5.0 L (10-20) unknown) ug/mL (unknown) (no (unknown) (unknown) Vancomycin Trough (units (unknown) date) (10-20) ug/mL unknown) (unknown) (no (unknown) (unknown) Vancomycin Trough (units (unknown) date) Stat unknown) (unknown) (no (unknown) (unknown) Vital Signs - 8 (units (unknown) date) hr unknown) (unknown) (no (unknown) (unknown) Vital Signs (units (un known) date) unknown) (unknown) (no (unknown) (unknown) Vital signs: (units (u nknown) date) unknown) (unknown) (no (unknown) (unknown) WBC (4.5-11.0) (units (unknown) date) X103/uL unknown) (unknown) (no (unknown) (unknown) WBC 7.6 (units (unkno wn) date) (4.5-11.0) X103/uL unknown) (unknown) (no (unknown) (unknown) [Embedded Image (units (unknown) date) Not Available] unknown) (unknown) (no (unknown) (unknown) amoxicillin and (units (unknown) date) something else. He unknown) is quite upset because they will not keep (unknown) (no (unknown) (unknown) amputated left (units (unknown) date) foot the right unknown) great toe has been erythematous for the last 4 (unknown) (no (unknown) (unknown) and below (units (unkn own) date) unknown) (unknown) (no (unknown) (unknown) be available till (units (unknown) date) later this month. unknown) He says it is still painful. 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 (units (unknown) date) He says he was unknown) also prescribed antibiotics do not see what he (unknown) (no (unknown) (unknown) days. He has been (units (unknown) date) to [facility] unknown) last 2 days in a row. He received IV (unknown) (no (unknown) (unknown) emergency (units (unkn own) date) department. He was unknown) told to return the next day for another dose I am (unknown) (no (unknown) (unknown) erythematous (units (u nknown) date) isolated left toe. unknown) Blood work is overall reassuring no sign of (unknown) (no (unknown) (unknown) general have been (units (unknown) date) requested. unknown) (unknown) (no (unknown) (unknown) him. He denies (units (unknown) date) any fever or unknown) chills. There is no streaking up his leg. He is (unknown) (no (unknown) (unknown) hydromorphone (units ( unknown) date) [From Dilaudid] unknown) AdvReac Hives Verified 10/13/22 09:19 (unknown) (no (unknown) (unknown) intact (units (unkno wn) date) unknown) (unknown) (no (unknown) (unknown) membranes (units (unkn own) date) unknown) (unknown) (no (unknown) (unknown) no need for (units (un known) date) transfer. He unknown) unfortunately did not finish his infusion of (unknown) (no (unknown) (unknown) not sure that he (units (unknown) date) did. Blood work unknown) actually looks better today than it did a (unknown) (no (unknown) (unknown) on the (units (unknown) date) September for an unknown) infected toe he was given vancomycin in the (unknown) (no (unknown) (unknown) or chills. No (units ( unknown) date) other symptoms. unknown) Noted to be hypertensive. Records from [facility] (unknown) (no (unknown) (unknown) oral antibiotics. (units (unknown) date) At this point he unknown) did not meet any sort of admission criteria (unknown) (no (unknown) (unknown) sepsis. Records (units (unknown) date) from [facility] unknown) general have been received. He was seen evaluated (unknown) (no (unknown) (unknown) then pulled the (units (unknown) date) IV and left. I did unknown) not see or evaluate the patient at the time (unknown) (no (unknown) (unknown) toe. All other (units (unknown) date) toes have been unknown) amputated there is no streaking no fluctuation (unknown) (no (unknown) (unknown) upset because his (units (unknown) date) orthopedic surgeon unknown) and his PCP have been unavailable and will (unknown) (no (unknown) (unknown) vancomycin (units (unk nown) date) yesterday his unknown) antibiotics were switched he says he was put on (unknown) (no (unknown) (unknown) vancomycin. (units (un known) date) unknown) (unknown) (no (unknown) (unknown) was prescribed. (units (unknown) date) He was ordered and unknown) started vancomycin. However he became Result panel 87 (unknown) (no date) (unknown) (unknown) (no value) (units (un known) unknown) (unknown) (no date) (unknown) (unknown) NO GROWTH (units (unk nown) AFTER 24 unknown) HOURS Result panel 88 (unknown) (no date) (unknown) (unknown) (no value) (units (un known) unknown) (unknown) (no date) (unknown) (unknown) NO GROWTH (units (unk nown) AFTER 24 unknown) HOURS Result panel 89 (unknown) (no date) (unknown) (unknown) (no value) (units (un known) unknown) (unknown) (no date) (unknown) (unknown) NO GROWTH (units (unk nown) AFTER 48 unknown) HOURS Result panel 90 (unknown) (no date) (unknown) (unknown) (no value) (units (un known) unknown) (unknown) (no date) (unknown) (unknown) NO GROWTH (units (unk nown) AFTER 48 unknown) HOURS Result panel 91 (unknown) (no date) (unknown) (unknown) (no value) (units (un known) unknown) (unknown) (no date) (unknown) (unknown) NO GROWTH (units (unk nown) AFTER 72 unknown) HOURS Result panel 92 (unknown) (no date) (unknown) (unknown) (no value) (units (un known) unknown) (unknown) (no date) (unknown) (unknown) NO GROWTH (units (unk nown) AFTER 72 unknown) HOURS Result panel 93 (unknown) (no date) (unknown) (unknown) (no value) (units (un known) unknown) (unknown) (no date) (unknown) (unknown) NO GROWTH (units (unk nown) AFTER 4 DAYS unknown) Result panel 94 (unknown) (no date) (unknown) (unknown) (no value) (units (un known) unknown) (unknown) (no date) (unknown) (unknown) NO GROWTH (units (unk nown) AFTER 4 DAYS unknown) Result panel 95 (unknown) (no date) (unknown) (unknown) (no value) (units (un known) unknown) (unknown) (no date) (unknown) (unknown) NO GROWTH (units (unk nown) AFTER 5 DAYS unknown) Result panel 96 (unknown) (no date) (unknown) (unknown) (no value) (units (un known) unknown) (unknown) (no date) (unknown) (unknown) NO GROWTH (units (unk nown) AFTER 5 DAYS unknown) Social History date description facility 2022-10-13 00:00 Unknown if ever [facility] Vital Signs date measurement value units 2022-10-13 00:00 BMI 22.5 kg/m2 2022-10-13 00:00 BP_diastolic 102 mmHg 2022-10-13 00:00 BP_systolic 223 mmHg 2022-10-13 00:00 heart_rate 84 /min 2022-10-13 00:00 height_metric 190.5 cm 2022-10-13 00:00 height_standard 75 in 2022-10-13 00:00 o2_saturation 97 % 2022-10-13 00:00 respiration_rate 20 /min 2022-10-13 00:00 temperature_metric 37 C 2022-10-13 00:00 temperature_standard 98.6 F 2022-10-13 00:00 weight_metric 81.64 kg 2022-10-13 00:00 weight_standard 179.99 lb
[2022-10-18] MEDS ORDERED: VANCOMYCIN INJ 2 GM in SODIUM CHLORIDE 0.9% 500 ML IV STA (17:30)
[2022-10-18] MEDS ORDERED: MORPHINE 2 MG/ML CARPUJECT IVP STA (17:31)
--- NOTE | 2022-10-18 17:35 | ED Physician Documentation ---
PD HPI LOWER EXT INJURY - Stated complaint Stated Complaint: DIABETIC FOOT INFECTION - Chief complaint Chief Complaint: Ext Problem - History obtained from History obtained from: Patient - Additional information Additional information: 57-year-old gentleman with recurrent diabetic foot infections, usually due to MSSA has been dealing with infections of his only 2 remaining toes, these are on the left foot for the last few weeks. He has been on and off of oral antibiotics but continues to worsen. He had an outpatient MRI today showing suggestion of osteomyelitis in the remaining 2 toes. Review of Systems Constitutional: denies: Fever, Chills Cardiac: reports: Reviewed and negative Respiratory: reports: Reviewed and negative GI: reports: Reviewed and negative PD PAST MEDICAL HISTORY - Past Medical History Cardiovascular: Hypertension, High cholesterol Respiratory: None Neuro: Peripheral neuropathy Endocrine/Autoimmune: Type 2 diabetes GI: None : None HEENT: None Psych: None Musculoskeletal: Other Derm: None - Past Surgical History Past Surgical History: Yes General: Appendectomy Ortho: Amputation - Present Medications Home Medications: Ambulatory Orders Medication Instructions Recorded Confirmed Insulin Glargine,Hum.rec.anlog 30 units SQ QPM 03/07/15 08/02/22 [Lantus Solostar] Liraglutide [Victoza 2-Florian] 1.8 mg SUBQ DAILY 05/13/18 08/02/22 metFORMIN [Glucophage] 1,000 mg PO BIDWM 09/29/18 07/07/22 amLODIPine [Norvasc] 10 mg PO BID 12/28/18 08/02/22 Gabapentin [Neurontin] 1,200 mg PO BID 02/05/21 08/02/22 Losartan Potassium [Cozaar] 100 mg PO DAILY 02/05/21 08/02/22 Sildenafil Citrate [Sildenafil] 5 - 20 mg PO QPM PRN 02/05/21 07/07/22 Atorvastatin [Lipitor] 10 mg PO DAILY 02/07/21 08/02/22 Insulin Lispro [Humalog] 3 - 12 unit SUBQ TIDWM 30 Days #1 06/28/22 08/02/22 packet Lisinopril [Zestril] 10 mg PO DAILY 07/07/22 08/02/22 Ciprofloxacin HCl [Cipro] 500 mg PO BID #14 tablet 09/25/22 Mupirocin 2% Oint [Bactroban 2% 1 applic TOP TID #15 gm 09/25/22 Oint] Oxycodone HCl/Acetaminophen 1 each PO Q6H PRN #14 tablet 09/25/22 [Percocet 5-325 mg Tablet] cephALEXin [Keflex] 500 mg PO TID #20 cap 09/25/22 Amox/Clav 875/125 [Augmentin] 1 each PO Q12H #20 tablet 10/11/22 - Allergies Allergies/Adverse Reactions: Allergies Allergy/AdvReac Type Severity Reaction Status Date / Time hydromorphone [From Dilaudid] Allergy Mild Rash Verified 10/18/22 16:29 - Social History Does the pt smoke?: No Smoking Status: Never smoker Does the pt drink ETOH?: Yes Does the pt have substance abuse?: No - Immunizations Immunizations are current?: Yes - POLST Patient has POLST: No POLST Status: Full Code PD ED PE NORMAL - Vitals Vital signs reviewed: Yes - General General: Alert and oriented X 3, No acute distress - Derm Derm: Normal color, Warm and dry - Extremities Extremities: Other (Redness and swelling of the remaining 2 toes on the left foot with cellulitis and denuded areas with tenderness but good perfusion.) - Neuro Neuro: Alert and oriented X 3, Normal speech Results - Vitals Vitals: Vital Signs - 24 hr 10/18/22 10/18/22 16:23 19:31 Temperature 37.0 C 36.7 C Heart Rate 92 73 Respiratory 14 18 Rate Blood Pressure 153/111 H 192/89 H O2 Saturation 97 99 Oxygen O2 Source Room air PD Medical Decision Making - ED course ED course: 57-year-old gentleman with diabetic foot infection, now with osteomyelitis of his 2 remaining toes on the left foot. He was given IV vancomycin here. I spoke with our hospitalist who cannot admit due to no orthopedics on-call until October 28. I offered to board him in the emergency department pending eventual transfer to a facility capable of Surgical debridement and/or amputation which he declined requesting a dose of IV antibiotics only, And he requested discharge after that. There is no true emergency medical condition but he does need close follow-up. Departure - Departure Disposition: 01 Home, Self Care Clinical Impression: Type 2 diabetes mellitus with left diabetic foot infection Osteomyelitis of left foot Qualifiers: Osteomyelitis type: other acute Qualified Code(s): M86.172 - Other acute osteomyelitis, left ankle and foot Condition: Good Record reviewed to determine appropriate education?: Yes Instructions: Diabetic Foot Ulcer Dc Comments: Based on the MRI done earlier today it is likely that you have osteomyelitis of the remaining 2 toes of your left foot. You received a dose of IV vancomycin here. We have offered to keep you here in the emergency department pending eventual transfer to a facility capable of orthopedic consultation but you have declined. Return for new or worsening symptoms. EXAM: [id number] MRI/FOOTLW ([id number]) PROCEDURE: FOOT W/WO - LT INDICATIONS: INFECTION OF FOOT DUE TO DM CONTRAST: GADAVIST 8.4 ML TECHNIQUE: Noncontrast sagittal T1 spin echo and T2 fast spin echo with fat saturation, long-axis T1 spin echo and T2 fast spin echo with fat saturation; short-axis T1 spin echo, proton density fast spin echo, and T2 fast spin echo with fat saturation through the forefoot. Post-contrast short axis, long axis, and sagittal T1 spin echo with fat saturation through the forefoot. COMPARISON: 10/11/2022, 09/25/2022, MRI of right foot dated 07/08/2022. FINDINGS: Image quality: Excellent. Bones and joints: Again noted is prior amputation of second, fourth and fifth toes at the level of second and fourth metatarsal heads and distal fifth metatarsal shaft. Surgical margin appears to be clean without bony erosion or edema. There is extensive edema involving first distal phalanx with subtle bony erosive changes involving first distal phalangeal tuft concerning for osteomyelitis in this area. There is also edema seen involving third distal phalanx. After IV contrast infusion, there is suggestion of contrast enhancement in these areas concerning for osteomyelitis. Chronic appearing remodeling and edema is again seen involving third metatarsal head without definite bony erosive changes. Osteoarthritic changes are noted involving third MTP joint, first interphalangeal joint, third proximal and distal interphalangeal joints. No other area of abnormal marrow signal or enhancement is seen. Soft tissues: Soft tissue edema and swelling surrounding the toe and third toe are seen. No discrete drainable abscess collection is seen. T2 hyperintense signal throughout included plantar foot muscles are noted suggestive of myositis. No discrete intramuscular abscess collection. Midfoot and forefoot tendons are grossly intact. Lisfranc ligament is intact. IMPRESSION: 1. Prior amputation of second, fourth and fifth toes with clean surgical margin. No evidence of recurrent osteomyelitis are noted in these areas. 2. Suggestion of osteomyelitis involving first and third distal phalanges with subtle erosive changes seen involving first distal phalangeal tuft. 3. Osteoarthritic changes are noted in forefoot joints most notably at third MTP joint with suggestion of remodeling at the third metatarsal head and mild edema. No definite bony erosion is seen in third metatarsal head to suggest osteomyelitis. No acute fracture or dislocation. 4. Cellulitis involving midfoot and forefoot particularly surrounding distal portion of first and third toes. No discrete drainable abscess collection. Reviewed by: Sg Walsh MD on 10/18/2022 3:19 PM PST Approved by: Sg Walsh MD on 10/18/2022 3:19 PM PST Discharge Date/Time: 10/18/22 19:31
[2022-10-18 19:32] VITALS: BP 192/89
== END 2022-10-18 19:31 | disposition home or self-care (01) ==
LOC: ED 16:18
DX: E11.621 Type 2 diabetes mellitus with foot ulcer (principal); Z79.4 Long term (current) use of insulin; M86.172 Other acute osteomyelitis, left ankle and foot; Z89.422 Acquired absence of other left toe(s); E11.628 Type 2 diabetes mellitus with other skin complications; L03.032 Cellulitis of left toe; L03.116 Cellulitis of left lower limb; M85.872 Other specified disorders of bone density and structure, left ankle and foot; M19.072 Primary osteoarthritis, left ankle and foot
CPT/HCPCS: 73720; 96365; 96375; 99283; 99284; A9585; J3370

== ENCOUNTER 2022-12-26 16:38 | Emergency (ER) | payer MEDICARE, OTHER ==
--- OUTSIDE RECORDS SUMMARY | 2022-12-26 17:07 | EXTERNAL MEDICAL SUMMARY RPT | Continuity of Care Document ---
:1965 Author Organization [facility] Address [address] [place] [address] Phone Care Team Providers Name Role Phone Ifrah Loya Unavailable Unavailable Allergies and Intolerances date description facility type (no date) [facility] (unknown) Encounters No information. Functional [...] (unknown) : (units (unkn own) 1965 unknown) Acct:[id number] (unknown) (no date) (unknown) (unknown) Date of [...] Signs: unknown) (unknown) (no date) (unknown) (unknown) [place] (units (unkn own) [facility] [address] unknown) [address] [place] [address] (unknown) (no date) (unknown) (unknown) Oxygen (units (unkn own) Delivery Method unknown) 10/13/22 07:38 (unknown) (no date) (unknown) (unknown) Oxygen (units (unkn own) Delivery Method unknown) Room Air (unknown) (no date) (unknown) (unknown) Patient: (units (unkn own) Irina Aguilar unknown) MR#: [id number] (unknown) (no date) (unknown) (unknown) Pulse Oximetry [...] (unknown) (unknown) : 1965 (units (unknown) date) Acct:[id number] unknown) (unknown) (no (unknown) (unknown) Date of [...] date) Signs: unknown) (unknown) (no (unknown) (unknown) [facility] (units (unknown) date) [address] [place] [address] unknown) [place] [address] (unknown) (no (unknown) (unknown) NEUROLOGICAL: (units ( [...] (unknown) (unknown) Patient: (units (unkno wn) date) Irina Aguilar MR#: unknown) [id number] (unknown) (no (unknown) (unknown) Pulse Oximetry 97 [...] He has been (units (unknown) date) to [facility] general unknown) last 2 days in a [...] unknown) Noted to be hypertensive. Records from [facility] (unknown) (no (unknown) (unknown) toe. All other [...] (unknown) (unknown) : 1965 (units (unknown) date) Acct:[id number] unknown) (unknown) (no (unknown) (unknown) Date of [...] date) Signs: unknown) (unknown) (no (unknown) (unknown) [facility] (units (unknown) date) [address] unknown) [place] [address] (unknown) (no (unknown) (unknown) Lab Data (units [...] (unknown) Lymph # (Auto) (units (unknown) date) (1527-1551) /uL unknown) (unknown) (no (unknown) (unknown) Lymph # (Auto) (units (unknown) date) 1500 ([id number]) unknown) /uL (unknown) (no (unknown) (unknown) Lymph [...] making narrative: unknown) (unknown) (no (unknown) (unknown) [place] # (Auto) (units ( unknown) date) (0-900) /uL unknown) (unknown) (no (unknown) (unknown) [place] # (Auto) (units ( unknown) date) 1000 H (0-900) /uL unknown) (unknown) (no (unknown) (unknown) [place] % (Auto) (units ( unknown) date) (3-14) % unknown) (unknown) (no (unknown) (unknown) [place] % (Auto) (units ( unknown) date) 13.1 (3-14) % unknown) (unknown) (no (unknown) (unknown) NEUROLOGICAL: (units ( unknown) date) Alert and oriented unknown) x4.Normal gait and speech. (unknown) (no (unknown) (unknown) Neut # (Auto) (units ( unknown) date) (4236-7896) /uL unknown) (unknown) (no (unknown) (unknown) Neut # (Auto) (units ( unknown) date) 4800 (7621-7105) unknown) /uL (unknown) (no (unknown) (unknown) Neut [...] (unknown) (unknown) Patient: (units (unkno wn) date) Irina Aguilar MR#: unknown) [id number] (unknown) (no (unknown) (unknown) Plt Count (units [...] unknown) Noted to be hypertensive. Records from [facility] (unknown) (no (unknown) (unknown) oral antibiotics. (units (unknown) date) At this point he unknown) did not meet any sort of admission criteria (unknown) (no (unknown) (unknown) sepsis. Records (units (unknown) date) from [facility] unknown) general have been received. He was [...] description facility 2022-10-13 00:00 Unknown if ever [facility] Vital Signs date measurement value units 2022-10-13 [...]
[2022-12-26 18:44] LABS: BASOPHILS # (AUTO) 0.1 10^3/uL (0.0-0.1); BASOPHILS % (AUTO) 0.9 %; EOSINOPHILS # (AUTO) 0.3 10^3/uL (0.0-0.7); EOSINOPHILS % (AUTO) 3.4 %; HCT - HEMATOCRIT 37.8 % (42.0-52.0); HGB - HEMOGLOBIN 13.3 g/dL (14.0-18.0); LYMPHOCYTES # (AUTO) 1.2 10^3/uL (1.5-3.5); LYMPHOCYTES % (AUTO) 11.8 %; MEAN CORPUSCULAR HGB CONC 35.2 g/dL (32.0-36.0); MEAN CORPUSCULAR VOLUME 91.1 fL (80.0-94.0); MONOCYTES # (AUTO) 1.5 10^3/uL (0.0-1.0); MONOCYTES % (AUTO) 14.6 %; PLT - PLATELET COUNT 333 10^3/uL (130-450); RED BLOOD COUNT 4.15 10^6/uL (4.70-6.10); RED CELL DISTRIBUTION WIDTH 11.9 % (12.0-15.0); WHITE BLOOD COUNT 10.1 x10^3/uL (4.8-10.8)
[2022-12-26] MEDS ORDERED: oxyCODONE 5 MG TABLET PO STA (18:53)
[2022-12-26 19:01] LABS: ALBUMIN 3.3 g/dL (3.2-5.5); ALBUMIN/GLOBULIN RATIO 0.9 (1.0-2.2); ALKALINE PHOSPHATASE 84 IU/L (42-121); ALT ALANINE AMINOTRANSFERASE 13 IU/L (10-60); AST ASPARTATE AMINOTRANSFERASE < 10 IU/L (10-42); BILIRUBIN,TOTAL 0.5 mg/dL (0.2-1.0); BUN - BLOOD UREA NITROGEN 12 mg/dL (6-20); CALCIUM 8.9 mg/dL (8.5-10.3); CARBON DIOXIDE - CO2 25 mmol/L (21-32); CHLORIDE 94 mmol/L (101-111); CREATININE 0.7 mg/dL (0.6-1.2); GFR - MDRD 115 (>89); GLUCOSE 485 mg/dL (70-100); POTASSIUM 4.3 mmol/L (3.5-5.0); SODIUM 130 mmol/L (135-145)
[2022-12-26] MEDS ORDERED: SODIUM CHLORIDE 0.9% 1,000 ML IV STA (19:04)
[2022-12-26] MEDS ORDERED: INSULIN REGULAR HUMAN 100 UNIT/1 ML 10 ML MDV SUBQ STA (19:04)
[2022-12-26] MEDS ORDERED: cefTRIAXone 1 GM in SODIUM CHLORIDE 0.9% MINIBAG 100 ML IV STA (19:05)
[2022-12-26] MEDS ORDERED: MORPHINE 2 MG/ML CARPUJECT IVP STA (19:13)
--- NOTE | 2022-12-26 19:14 | XRAY Report ---
PROCEDURE: Foot 3 View RT INDICATIONS: infection TECHNIQUE: 3 views of the foot were acquired. COMPARISON: MR 07/08/2022 FINDINGS: Bones: Transmetatarsal amputation of digits 1 through 5. There is partial bridging ossification of t he distal amputation fragments between metatarsals 2 and 3 and 4 and 5. The lateral view demonstrates blurring of the distal cortices of metatarsals which may be due to erosive changes or technique. Soft tissues: There is no subcutaneous gas along the amputation stump where there is a indicated ski n wound. No tibiotalar joint effusion. Moderate peripheral arterial calcification. Intact Achilles te ndon. \ IMPRESSION: 1. Prior transmetatarsal amputation with suboptimal visualization of the bone cortex along the amputa tion site on the lateral view. Osseous erosion cannot be excluded. 2. No soft tissue gas. Reviewed by: Heather Hunt MD on 12/26/2022 7:13 PM PDT Approved by: Heather Hunt MD on 12/26/2022 7:13 PM PDT Station ID: [id number]
[2022-12-26] MEDS ORDERED: VANCOMYCIN INJ 1.5 GM in SODIUM CHLORIDE 0.9% 500 ML IV STA (19:15)
[2022-12-26] MEDS ORDERED: cefTRIAXone 2 GM VIAL ONE (19:19)
[2022-12-26] MEDS ORDERED: oxyCODONE/ACET 5/325 Prepack 4 PO STA (21:29)
--- NOTE | 2022-12-26 21:29 | ED Physician Documentation ---
PD HPI LOWER EXT INJURY - Stated complaint Stated Complaint: RT FT WOUND - Chief complaint Chief Complaint: Ext Problem PD PAST MEDICAL HISTORY - Past Medical History Cardiovascular: Hypertension, High cholesterol Respiratory: None Neuro: Peripheral neuropathy Endocrine/Autoimmune: Type 2 diabetes GI: None : None HEENT: None Psych: None Musculoskeletal: Other Derm: None - Past Surgical History Past Surgical History: Yes General: Appendectomy Ortho: Amputation - Present Medications Home Medications: Ambulatory Orders Medication Instructions Recorded Confirmed Insulin Glargine,Hum.rec.anlog 30 units SQ QPM 03/07/15 08/02/22 [Lantus Solostar] Liraglutide [Victoza 2-Florian] 1.8 mg SUBQ DAILY 05/13/18 08/02/22 metFORMIN [Glucophage] 1,000 mg PO BIDWM 09/29/18 07/07/22 amLODIPine [Norvasc] 10 mg PO BID 12/28/18 08/02/22 Gabapentin [Neurontin] 1,200 mg PO BID 02/05/21 08/02/22 Losartan Potassium [Cozaar] 100 mg PO DAILY 02/05/21 08/02/22 Sildenafil Citrate [Sildenafil] 5 - 20 mg PO QPM PRN 02/05/21 07/07/22 Atorvastatin [Lipitor] 10 mg PO DAILY 02/07/21 08/02/22 Insulin Lispro [Humalog] 3 - 12 unit SUBQ TIDWM 30 Days #1 06/28/22 08/02/22 packet Lisinopril [Zestril] 10 mg PO DAILY 07/07/22 08/02/22 Ciprofloxacin HCl [Cipro] 500 mg PO BID #14 tablet 09/25/22 Mupirocin 2% Oint [Bactroban 2% 1 applic TOP TID #15 gm 09/25/22 Oint] Oxycodone HCl/Acetaminophen 1 each PO Q6H PRN #14 tablet 09/25/22 [Percocet 5-325 mg Tablet] cephALEXin [Keflex] 500 mg PO TID #20 cap 09/25/22 Amox/Clav 875/125 [Augmentin] 1 each PO Q12H #20 tablet 10/11/22 - Allergies Allergies/Adverse Reactions: Allergies Allergy/AdvReac Type Severity Reaction Status Date / Time hydromorphone [From Dilaudid] Allergy Mild Rash Verified 12/26/22 16:52 - Social History Does the pt smoke?: No Smoking Status: Never smoker Does the pt drink ETOH?: Yes Does the pt have substance abuse?: No - Immunizations Immunizations are current?: Yes - POLST Patient has POLST: No POLST Status: Full Code Results - Vitals Vitals: Vital Signs - 24 hr 12/26/22 12/26/22 12/26/22 16:50 18:52 21:10 Temperature 37.1 C Heart Rate 89 84 87 Respiratory 16 18 20 Rate Blood Pressure 209/81 H 182/82 H 183/87 H O2 Saturation 96 98 97 Oxygen O2 Source Room air - Labs Labs: Microbiology 12/26/22 20:18 Wound Culture - Preliminary Foot - Right Laboratory Tests 12/26/22 12/26/22 18:37 18:37 WBC 10.1 RBC 4.15 L Hgb 13.3 L Hct 37.8 L MCV 91.1 MCH 32.0 H MCHC 35.2 RDW 11.9 L Plt Count 333 MPV 10.0 Neut # (Auto) 7.0 H Lymph # (Auto) 1.2 L [place] # (Auto) 1.5 H Eos # (Auto) 0.3 Baso # (Auto) 0.1 Absolute Nucleated RBC 0.00 Nucleated RBC % 0.0 Sodium 130 L Potassium 4.3 Chloride 94 L Carbon Dioxide 25 Anion Gap 11.0 BUN 12 Creatinine 0.7 Estimated GFR (MDRD) 115 Glucose 485 H Calcium 8.9 Total Bilirubin 0.5 AST < 10 L ALT 13 Alkaline Phosphatase 84 Total Protein 7.0 Albumin 3.3 Globulin 3.7 Albumin/Globulin Ratio 0.9 L
--- NOTE | 2022-12-26 21:32 | ED Physician Documentation ---
History of Present Illness - Stated complaint Stated Complaint: RT FT WOUND - Chief complaint Chief Complaint: Ext Problem - History obtained from History obtained from: Patient - Additonal information Additional information: Pt is a 57 yo IDDM presenting for evaluation of redness, swelling, drainage from R foot for 5-6 days. Pt works at [employer] and walks a lot while working. He has noticed small wound to foot with increasing pain and swelling to the area. He has a history of prior infections to feet requiring amputations. He has not been on antibiotics since October. Denies fever, CP, SOA, abdominal pain. Review of Systems Constitutional: denies: Fever Cardiac: denies: Chest pain / pressure Respiratory: denies: Dyspnea GI: denies: Abdominal Pain Musculoskeletal: reports: Extremity pain PD PAST MEDICAL HISTORY - Past Medical History Cardiovascular: Hypertension, High cholesterol Respiratory: None Neuro: Peripheral neuropathy Endocrine/Autoimmune: Type 2 diabetes GI: None : None HEENT: None Psych: None Musculoskeletal: Other Derm: None - Past Surgical History Past Surgical History: Yes General: Appendectomy Ortho: Amputation - Present Medications Home Medications: Ambulatory Orders Medication Instructions Recorded Confirmed Insulin Glargine,Hum.rec.anlog 30 units SQ QPM 03/07/15 08/02/22 [Lantus Solostar] Liraglutide [Victoza 2-Florian] 1.8 mg SUBQ DAILY 05/13/18 08/02/22 metFORMIN [Glucophage] 1,000 mg PO BIDWM 09/29/18 07/07/22 amLODIPine [Norvasc] 10 mg PO BID 12/28/18 08/02/22 Gabapentin [Neurontin] 1,200 mg PO BID 02/05/21 08/02/22 Losartan Potassium [Cozaar] 100 mg PO DAILY 02/05/21 08/02/22 Sildenafil Citrate [Sildenafil] 5 - 20 mg PO QPM PRN 02/05/21 07/07/22 Atorvastatin [Lipitor] 10 mg PO DAILY 02/07/21 08/02/22 Insulin Lispro [Humalog] 3 - 12 unit SUBQ TIDWM 30 Days #1 06/28/22 08/02/22 packet Lisinopril [Zestril] 10 mg PO DAILY 07/07/22 08/02/22 Ciprofloxacin HCl [Cipro] 500 mg PO BID #14 tablet 09/25/22 Mupirocin 2% Oint [Bactroban 2% 1 applic TOP TID #15 gm 09/25/22 Oint] Oxycodone HCl/Acetaminophen 1 each PO Q6H PRN #14 tablet 09/25/22 [Percocet 5-325 mg Tablet] cephALEXin [Keflex] 500 mg PO TID #20 cap 09/25/22 Amox/Clav 875/125 [Augmentin] 1 each PO Q12H #20 tablet 10/11/22 Oxycodone HCl/Acetaminophen 1 each PO Q6H PRN #14 tablet 12/26/22 [Percocet 5-325 mg Tablet] Sulfamethox/Trimeth 800/160 1 each PO BID #14 tablet 12/26/22 [Bactrim Ds 800/160] cephALEXin [Keflex] 500 mg PO Q6H #28 cap 12/26/22 - Allergies Allergies/Adverse Reactions: Allergies Allergy/AdvReac Type Severity Reaction Status Date / Time hydromorphone [From Dilaudid] Allergy Mild Rash Verified 12/26/22 16:52 - Social History Does the pt smoke?: No Smoking Status: Never smoker Does the pt drink ETOH?: Yes Does the pt have substance abuse?: No - Immunizations Immunizations are current?: Yes - POLST Patient has POLST: No POLST Status: Full Code PD ED PE NORMAL - General General: Alert and oriented X 3, No acute distress, Well developed/nourished - HEENT HEENT: Atraumatic - Neck Neck: Supple, no meningeal sign - Cardiac Cardiac: RRR - Respiratory Respiratory: No respiratory distress, Clear bilaterally - Abdomen Abdomen: Soft, Non tender - Extremities Extremities: Other (R foot with prior amputated toes; 1cm ulcer to sole of R foot, purulent drainage, no fluctuance, surrounding redness and swelling isolated to foot; extremity is warm and well perfused) Results - Vitals Vitals: Vital Signs - 24 hr 12/26/22 12/26/22 12/26/22 16:50 18:52 21:10 Temperature 37.1 C Heart Rate 89 84 87 Respiratory 16 18 20 Rate Blood Pressure 209/81 H 182/82 H 183/87 H O2 Saturation 96 98 97 12/26/22 22:40 Temperature Heart Rate 89 Respiratory 16 Rate Blood Pressure 174/93 H O2 Saturation 99 Oxygen O2 Source Room air - Labs Labs: Microbiology 12/26/22 20:18 Wound Culture - Preliminary Foot - Right Laboratory Tests 12/26/22 12/26/22 18:37 18:37 WBC 10.1 RBC 4.15 L Hgb 13.3 L Hct 37.8 L MCV 91.1 MCH 32.0 H MCHC 35.2 RDW 11.9 L Plt Count 333 MPV 10.0 Neut # (Auto) 7.0 H Lymph # (Auto) 1.2 L [place] # (Auto) 1.5 H Eos # (Auto) 0.3 Baso # (Auto) 0.1 Absolute Nucleated RBC 0.00 Nucleated RBC % 0.0 Sodium 130 L Potassium 4.3 Chloride 94 L Carbon Dioxide 25 Anion Gap 11.0 BUN 12 Creatinine 0.7 Estimated GFR (MDRD) 115 Glucose 485 H Calcium 8.9 Total Bilirubin 0.5 AST < 10 L ALT 13 Alkaline Phosphatase 84 Total Protein 7.0 Albumin 3.3 Globulin 3.7 Albumin/Globulin Ratio 0.9 L PD Medical Decision Making - ED course ED course: Pt with IDDM presenting for evaluation of R foot infection. Afebrile. BP elevated but pt asymptomatic in regards to BP. Affected foot examined and wound culture taken. Labs reviewed and significant for hyperglycemia. Pt does not appear in DKA or HHS. Pt was given SubQ insulin but also noted to be having soda and other snacks while in ED. Pt does not appear septic. Xray reviewed without clear evidence for osteomyelitis. No fluctuance to suggest abscess. Pt initiated on antibiotics. Erythema did not worsen during ED course. He was counseled on strict return precautions for any worsening and also understands to come back if no improvement as this may indicate a failure of outpatient treatment. Departure - Departure Disposition: 01 Home, Self Care Clinical Impression: Cellulitis of right foot, Hyperglycemia Condition: Stable Instructions: ED Infec Skin Cellulitis Prescriptions: Sulfamethox/Trimeth 800/160 [Bactrim Ds 800/160] 1 each PO BID #14 tablet cephALEXin [Keflex] 500 mg PO Q6H #28 cap Oxycodone HCl/Acetaminophen [Percocet 5-325 mg Tablet] 1 each PO Q6H PRN #14 tablet PRN Reason: pain Comments: You have been started on 2 antibiotics for a infection in your right foot. Please make sure to pick these up in the morning and take them as prescribed. Should also try and stay off the foot is much as possible as there is a wound on the sole of the foot. If your symptoms or not improving in the next 48 hours, I would recommend recheck in the emergency department as you may need further IV antibiotics. Certainly if you notice any worsening symptoms prior to that please consider return sooner. Your blood sugar was also elevated. Please make sure to take your insulin as prescribed. I would also recommend close follow-up with your primary care doctor regarding your wound as well as your glucose. Prescriptions were sent to [facility] in [place]. I am prescribing a short course of narcotic pain medication for you. These are potentially dangerous and addictive medications that should be used carefully. These medications may constipate you. Take an atsk-ivb-lssgnat stool softener (docusate) twice daily with plenty of water while taking these medications. If you go 24 hours without a bowel movement, take [id number] miralax, per package instructions. Do not drink or drive while taking these medications. If you received narcotic or sedating medications while in the emergency department, do not drive for 24 hours. Store this medication in a safe, secure place and out of reach of children. It is a violation of federal law to give or sell this medication to another person or to use in a manner other than prescribed. The ED will not refill narcotic prescriptions, including prescriptions lost or stolen. To dispose of unwanted medications: 1. [facility] at [address] [facility] in [place] has a medication drop box. They accept prescription medications (in pill form) Friday through Friday 9:00 a.m. to 5:00 p.m. 2. The [facility] Police Department accepts prescription medications (in pill form only) for disposal year round. Call for more information. 3. Contact the [facility] for the next [facility] sponsored prescription drug collection event. , [phone], or [phone]; Note that many narcotic pain relievers also contain Tylenol/acetaminophen. Please ensure that your total dose of acetaminophen from all sources does not exceed 3 g (3000 mg) per day. Forms: Activity restrictions Discharge Date/Time: 12/26/22 22:41
[2022-12-26 22:41] VITALS: BP 174/93
== END 2022-12-26 22:41 | disposition home or self-care (01) ==
LOC: ED 16:38
DX: L03.115 Cellulitis of right lower limb (principal); E11.65 Type 2 diabetes mellitus with hyperglycemia; E11.42 Type 2 diabetes mellitus with diabetic polyneuropathy; I10 Essential (primary) hypertension; E78.00 Pure hypercholesterolemia, unspecified; Z89.421 Acquired absence of other right toe(s); Z79.4 Long term (current) use of insulin; Z79.84 Long term (current) use of oral hypoglycemic drugs; Z79.899 Other long term (current) drug therapy
CPT/HCPCS: 36415; 73630; 80053; 85025; 87040; 87070; 87205; 96365; 96366; 96367; 96375; 99284; J3370

== ENCOUNTER 2023-01-10 19:49 | Emergency (ER) | payer MEDICARE, OTHER ==
--- OUTSIDE RECORDS SUMMARY | 2023-01-10 19:58 | EXTERNAL MEDICAL SUMMARY RPT | Continuity of Care Document ---
:1965 Author Organization [facility] Address [address] [place] [address] Phone Care Team Providers Name Role Phone Ifrah Loya Unavailable Unavailable Allergies and Intolerances date description facility type (no date) [facility] (unknown) Encounters No information. Functional Status No [...] (unknown) : (units (unkn own) 1965 unknown) Acct:[id number] (unknown) (no date) (unknown) (unknown) Date of [...] Signs: unknown) (unknown) (no date) (unknown) (unknown) [place] (units (unkn own) [facility] [address] unknown) [address] [place] [address] (unknown) (no date) (unknown) (unknown) Oxygen (units (unkn own) Delivery Method unknown) 10/13/22 07:38 (unknown) (no date) (unknown) (unknown) Oxygen (units (unkn own) Delivery Method unknown) Room Air (unknown) (no date) (unknown) (unknown) Patient: (units (unkn own) Elijah Aguilar unknown) MR#: [id number] (unknown) (no date) (unknown) (unknown) Pulse Oximetry [...] (unknown) (unknown) : 1965 (units (unknown) date) Acct:[id number] unknown) (unknown) (no (unknown) (unknown) Date of [...] date) Signs: unknown) (unknown) (no (unknown) (unknown) [facility] (units (unknown) date) [address] [place] [address] unknown) [place] [address] (unknown) (no (unknown) (unknown) NEUROLOGICAL: (units ( [...] (unkno wn) date) Elijah Aguilar MR#: unknown) [id number] (unknown) (no (unknown) (unknown) Pulse Oximetry 97 [...] nknown) date) unknown) (unknown) (no (unknown) (unknown) fIrah Loya, (units (unknown) date) ELI [Primary Care [...] He has been (units (unknown) date) to [facility] general unknown) last 2 days in [...] unknown) Noted to be hypertensive. Records from [facility] (unknown) (no (unknown) (unknown) toe. All [...] (unknown) (unknown) : 1965 (units (unknown) date) Acct:[id number] unknown) (unknown) (no (unknown) (unknown) Date of [...] date) Signs: unknown) (unknown) (no (unknown) (unknown) [facility] (units (unknown) date) [address] unknown) [place] [address] (unknown) (no (unknown) (unknown) Lab Data (units [...] (unknown) Lymph # (Auto) (units (unknown) date) (7620-1344) /uL unknown) (unknown) (no (unknown) (unknown) Lymph # (Auto) (units (unknown) date) 1500 ([id number]) unknown) /uL (unknown) (no (unknown) (unknown) Lymph [...] making narrative: unknown) (unknown) (no (unknown) (unknown) Yell # (Auto) (units ( unknown) date) (0-900) /uL unknown) (unknown) (no (unknown) (unknown) Yell # (Auto) (units ( unknown) date) 1000 H (0-900) /uL unknown) (unknown) (no (unknown) (unknown) Yell % (Auto) (units ( unknown) date) (3-14) % unknown) (unknown) (no (unknown) (unknown) Yell % (Auto) (units ( unknown) date) 13.1 (3-14) % unknown) (unknown) (no (unknown) (unknown) NEUROLOGICAL: (units ( unknown) date) Alert and oriented unknown) x4.Normal gait and speech. (unknown) (no (unknown) (unknown) Neut # (Auto) (units ( unknown) date) (7207-1395) /uL unknown) (unknown) (no (unknown) (unknown) Neut # (Auto) (units ( unknown) date) 4800 (3621-3581) unknown) /uL (unknown) (no (unknown) (unknown) Neut [...] (unkno wn) date) Elijah Aguilar MR#: unknown) [id number] (unknown) (no (unknown) (unknown) Plt Count (units [...] unknown) Noted to be hypertensive. Records from [facility] (unknown) (no (unknown) (unknown) oral antibiotics. (units (unknown) date) At this point he unknown) did not meet any sort of admission criteria (unknown) (no (unknown) (unknown) sepsis. Records (units (unknown) date) from [facility] unknown) general have been received. He [...] description facility 2022-10-13 00:00 Unknown if ever [facility] Vital Signs date measurement value units [...]
[2023-01-10] MEDS ORDERED: MORPHINE 2 MG/ML CARPUJECT IVP STA (20:33)
[2023-01-10] MEDS ORDERED: levoFLOXacin 750 MG/150 ML 750 MG/150 ML BAG IV STA (20:33)
[2023-01-10 20:35] LABS: BASOPHILS # (AUTO) 0.1 10^3/uL (0.0-0.1); BASOPHILS % (AUTO) 0.7 %; EOSINOPHILS # (AUTO) 0.5 10^3/uL (0.0-0.7); EOSINOPHILS % (AUTO) 3.8 %; HCT - HEMATOCRIT 37.6 % (42.0-52.0); HGB - HEMOGLOBIN 13.2 g/dL (14.0-18.0); LYMPHOCYTES # (AUTO) 1.7 10^3/uL (1.5-3.5); LYMPHOCYTES % (AUTO) 12.5 %; MEAN CORPUSCULAR HEMOGLOBIN 31.9 pg (27.0-31.0); MEAN CORPUSCULAR HGB CONC 35.1 g/dL (32.0-36.0); MEAN CORPUSCULAR VOLUME 90.8 fL (80.0-94.0); MEAN PLATELET VOLUME 9.9 fL (7.4-11.4); MONOCYTES # (AUTO) 1.4 10^3/uL (0.0-1.0); MONOCYTES % (AUTO) 10.1 %; NEUTROPHILS # (AUTO) 9.7 10^3/uL (1.5-6.6); NEUTROPHILS % (AUTO) 72.5 %; PLT - PLATELET COUNT 328 10^3/uL (130-450); RED BLOOD COUNT 4.14 10^6/uL (4.70-6.10); RED CELL DISTRIBUTION WIDTH 11.9 % (12.0-15.0); WHITE BLOOD COUNT 13.4 x10^3/uL (4.8-10.8)
--- NOTE | 2023-01-10 20:43 | ED Physician Documentation ---
History of Present Illness - Stated complaint Stated Complaint: LT FOOT PX - Chief complaint Chief Complaint: Wound - Additonal information Additional information: 57-year-old male with a history of diabetes presents with concerns for worsening appearance of left foot foot surgical wound. The patient had a transmetatarsal amputation in October at [facility] Due to osteomyelitis and infection. He has not followed up with a account executive key accounts since then and still has the post operative sutures in place. He states over the course of the last 2 weeks he is feels like his foot is getting more swollen and he has had some drainage from the wound. For unclear reasons he has not been able to get back into the account executive key accounts and has not seen them for postoperative care at all. He does have a wound care appointment here at the hospital Early next week. He states he is here just for some "antibiotics and pain medication to get me through to my wound care appointment." When I discussed with patient that wound care was unlikely to be sufficient for this wound and that he needed to see a account executive key accounts, he declined transfer and stated that he was "working on it."He has had some increased pain and swelling in the left leg, but no known fever or chills, no fatigue or weakness, no chest pain or difficulty breathing, no abdominal pain nausea vomiting or diarrhea. He was just seen here 2 weeks ago for a right foot infection for which she took a course of Keflex and Bactrim But does not believe it was helpful for the left foot wound though this was not a concern of his at his last Visit here. Patient states he has seen his PCP a few times for this and has been referred to wound care but no other treatment has been rendered according to the patient. Patient notably is a poorly controlled diabetic, frequently here with hyperglycemia. He also is on his feet much of the day, he states he does have a scooter that he has been using at his job at [employer] but he is not always able to keep his left leg elevated.He states he cannot afford to miss work thus does not want to take any days off, in fact he has a special event he needs to do tomorrow and is adamant that he will go to this. Review of Systems Constitutional: reports: Reviewed and negative Cardiac: reports: Reviewed and negative Respiratory: reports: Reviewed and negative GI: reports: Reviewed and negative : reports: Reviewed and negative Skin: reports: Other (Worsening left foot wound.) Musculoskeletal: reports: Reviewed and negative PD PAST MEDICAL HISTORY - Past Medical History Past Medical History: Yes Cardiovascular: Hypertension, High cholesterol Respiratory: None Neuro: Peripheral neuropathy Endocrine/Autoimmune: Type 2 diabetes GI: None : None HEENT: None Psych: None Musculoskeletal: Other Derm: None - Past Surgical History Past Surgical History: Yes General: Appendectomy Ortho: Amputation - Present Medications Home Medications: Ambulatory Orders Medication Instructions Recorded Confirmed Insulin Glargine,Hum.rec.anlog 30 units SQ QPM 03/07/15 08/02/22 [Lantus Solostar] Liraglutide [Victoza 2-Florian] 1.8 mg SUBQ DAILY 05/13/18 08/02/22 metFORMIN [Glucophage] 1,000 mg PO BIDWM 09/29/18 07/07/22 amLODIPine [Norvasc] 10 mg PO BID 12/28/18 08/02/22 Gabapentin [Neurontin] 1,200 mg PO BID 02/05/21 08/02/22 Losartan Potassium [Cozaar] 100 mg PO DAILY 02/05/21 08/02/22 Sildenafil Citrate [Sildenafil] 5 - 20 mg PO QPM PRN 02/05/21 07/07/22 Atorvastatin [Lipitor] 10 mg PO DAILY 02/07/21 08/02/22 Insulin Lispro [Humalog] 3 - 12 unit SUBQ TIDWM 30 Days #1 06/28/22 08/02/22 packet Lisinopril [Zestril] 10 mg PO DAILY 07/07/22 08/02/22 Ciprofloxacin HCl [Cipro] 500 mg PO BID #14 tablet 09/25/22 Mupirocin 2% Oint [Bactroban 2% 1 applic TOP TID #15 gm 09/25/22 Oint] Oxycodone HCl/Acetaminophen 1 each PO Q6H PRN #14 tablet 09/25/22 [Percocet 5-325 mg Tablet] cephALEXin [Keflex] 500 mg PO TID #20 cap 09/25/22 Amox/Clav 875/125 [Augmentin] 1 each PO Q12H #20 tablet 10/11/22 Oxycodone HCl/Acetaminophen 1 each PO Q6H PRN #14 tablet 12/26/22 [Percocet 5-325 mg Tablet] Sulfamethox/Trimeth 800/160 1 each PO BID #14 tablet 12/26/22 [Bactrim Ds 800/160] cephALEXin [Keflex] 500 mg PO Q6H #28 cap 12/26/22 Amox/Clav 875/125 [Augmentin] 1 each PO Q12H #20 tablet 01/10/23 Oxycodone HCl/Acetaminophen 1 each PO Q6HR PRN #12 tablet 01/10/23 [Oxycodone-Acetaminophn 7.5-325] - Allergies Allergies/Adverse Reactions: Allergies Allergy/AdvReac Type Severity Reaction Status Date / Time hydromorphone [From Dilaudid] Allergy Mild Rash Verified 01/10/23 20:09 - Social History Does the pt smoke?: No Smoking Status: Never smoker Does the pt drink ETOH?: Yes Does the pt have substance abuse?: No - Immunizations Immunizations are current?: Yes - POLST Patient has POLST: No POLST Status: Full Code PD ED PE NORMAL - Vitals Vital signs reviewed: Yes - General General: Alert and oriented X 3, No acute distress, Well developed/nourished - HEENT HEENT: Atraumatic, Pharynx benign - Cardiac Cardiac: RRR, No murmur - Respiratory Respiratory: No respiratory distress, Clear bilaterally - Abdomen Abdomen: Normal bowel sounds, Soft - Derm Derm: Other (Transmetatarsal surgical incision is partially healed. There are retained sutures throughout. There is a boggy area that is approximately 3 x 3 cm on the lateral aspect of the surgical incision at the base of the first metatarsal that is draining serosanguineous and seropurulent fluid. It probes ) - Free text exam Free text exam: Transmetatarsal surgical incision is partially healed. There are retained sutures throughout. There is a boggy area that is approximately 3 x 3 cm on the lateral aspect of the surgical incision at the base of the first metatarsal that is draining serosanguineous and seropurulent fluid. It probes To the bone. There is Thick callus peeling off from the fifth metatarsal to the approximately third metatarsal, With some areas that appear necrotic. There is mild erythema to the midfoot with swelling from the TMA incision up to the mid glover. No streaking erythema. Foot is generally nontender as patient has poor sensation. Results - Vitals Vitals: Vital Signs - 24 hr 01/10/23 01/10/23 20:05 20:51 Temperature 36.3 C L Heart Rate 92 81 Respiratory 16 18 Rate Blood Pressure 164/70 H 147/80 H O2 Saturation 98 98 Oxygen O2 Source Room air - Labs Labs: Microbiology 01/10/23 20:23 Wound Culture - Preliminary Foot - Left Laboratory Tests 01/10/23 01/10/23 20:24 20:24 WBC 13.4 H RBC 4.14 L Hgb 13.2 L Hct 37.6 L MCV 90.8 MCH 31.9 H MCHC 35.1 RDW 11.9 L Plt Count 328 MPV 9.9 Neut # (Auto) 9.7 H Lymph # (Auto) 1.7 [place] # (Auto) 1.4 H Eos # (Auto) 0.5 Baso # (Auto) 0.1 Absolute Nucleated RBC 0.00 Nucleated RBC % 0.0 Sodium 133 L Potassium 3.7 Chloride 98 L Carbon Dioxide 24 Anion Gap 11.0 BUN 13 Creatinine 0.7 Estimated GFR (MDRD) 115 Glucose 337 H Calcium 8.7 - Rads (name of study) No standard instances Relevant Findings:: Final report received PD Medical Decision Making - ED course Complexity details: reviewed old records, reviewed results, re-evaluated patient, considered differential, d/w patient ED course: This is a 57-year-old male who presents with a poorly healing transmetatarsal amputation wound. The wound has either dehisced or become infected and is open on the left lateral side at the base of the fifth metatarsal. There is seropurulent drainage from this area. Mild erythema. Patient however does not appear toxic and is afebrile. He does have a leukocytosis, though mild. He strongly does not want to stay in the hospital or be transferred for podiatry care. He Initially stated he is only here for additional course of antibiotics and pain medication. He Plans to see wound care on Friday as scheduled though I discussed with patient that I was concerned that wound care alone was not going to be sufficient for this wound. I do think it is a good idea to see the wound care provider but I have advised the patient to get into see his account executive key accounts as soon as possible for follow-up. This likely needs additional debridement. I have removed the sutures that I was able to see and started the patient on a dose of IV Levaquin here per his prior culture of this area showing MSSA. We have obtained a new culture today and can call and change antibiotics as needed. I repeatedly discussed with patient my concerns that he needs to see podiatry as soon as possible for likely additional surgical debridement and that antibiotics and wound care alone likely were to be insufficient but at this time patient is not toxic and does not require hospitalization and does not desire hospitalization therefore he will be discharged home on antibiotics, Initially was going to do Levaquin but have changed to Augmentin per prior cultures. He did later indicate that he may be interested in hospitalization therefore I did reach out to the account executive key accounts at [facility] however In the interim, the patient decided to go home.We provided wound care with a Betadine soaked gauze dressing followed by dry gauze dressing and provided him with home wound care and supplies.He was advised to keep the leg elevated whenever possible and seek care immediately if he develops a fever, increased redness or swelling or other new concerns. Departure - Departure Disposition: Home, Self Care Clinical Impression: Diabetic ulcer of foot associated with diabetes mellitus due to underlying condition, limited to breakdown of skin Qualifiers: Diabetic foot ulcer location: other Laterality: left Qualified Code(s): E08.621 - Diabetes mellitus due to underlying condition with foot ulcer Condition: Good Prescriptions: Oxycodone HCl/Acetaminophen [Oxycodone-Acetaminophn 7.5-325] 1 each PO Q6HR PRN #12 tablet PRN Reason: Pain >8 Amox/Clav 875/125 [Augmentin] 1 each PO Q12H #20 tablet Comments: Your left foot wound is not healing well And may need additional surgical intervention. It is extremely important that you make a follow-up appointment with your account executive key accounts as soon as possible. I do think the wound care visit is a good idea but I am concerned this wound will not heal without additional surgical intervention from the account executive key accounts. We have started you on antibiotics, you received a dose here in the ER and then I will discharge you home with antibiotics for the next 10 days, but antibiotics alone will not help this wound to heal completely and you must see the account executive key accounts. Try to keep the leg elevated whenever possible which will help with swelling. Please call on Friday and make a podiatry appointment as soon as possible.
[2023-01-10 20:48] LABS: CALCIUM 8.7 mg/dL (8.5-10.3); CREATININE 0.7 mg/dL (0.6-1.2); POTASSIUM 3.7 mmol/L (3.5-5.0)
--- NOTE | 2023-01-10 21:19 | XRAY Report ---
PROCEDURE: Foot 3 View LT INDICATIONS: diabetic ulcer, worsening TECHNIQUE: 3 views of the foot were acquired. COMPARISON: Left foot x-ray 10/11/2022. Left foot MRI 10/18/2022. FINDINGS: Bones: Postsurgical changes are demonstrated status post distal amputation of the left foot the leve l of the metatarsal shafts. There is mild periosteal reaction along the surgical margins of the secon d and fourth metatarsals. No definite bony erosions. Soft tissues: There is soft tissue swelling of the distal soft tissues with soft tissue gas dorsally in the ulnar soft tissues. IMPRESSION: 1. Postsurgical changes status post amputation of the left foot with mild periosteal reaction along t he surgical margins of the second and fourth metatarsals. The findings are nonspecific but suspicious for osteomyelitis. 2. Soft tissue gas demonstrated distally likely corresponding to a soft tissue ulcer. Reviewed by: Taz Aguilar MD on 01/10/2023 9:18 PM PDT Approved by: Taz Aguilar MD on 01/10/2023 9:18 PM PDT Station ID: [id number]
[2023-01-10] MEDS ORDERED: oxyCODONE 5 MG TABLET PO STA (21:40)
[2023-01-10 22:30] VITALS: BP 162/89
== END 2023-01-10 22:39 | disposition home or self-care (01) ==
LOC: ED 19:49
DX: E11.621 Type 2 diabetes mellitus with foot ulcer (principal); L97.528 Non-pressure chronic ulcer of other part of left foot with other specified severity; Z79.4 Long term (current) use of insulin; Z79.84 Long term (current) use of oral hypoglycemic drugs; E11.65 Type 2 diabetes mellitus with hyperglycemia
CPT/HCPCS: 36415; 73630; 80048; 85025; 87070; 87077; 87205; 96365; 96366; 96375; 99284; A9270

== ENCOUNTER 2023-09-13 08:04 | Emergency (ER) | payer MEDICARE, OTHER ==
--- NOTE | 2023-09-13 08:26 | ED Physician Documentation ---
PD HPI SKIN - Stated complaint Stated Complaint: LT FOOT SWOLLEN - Chief complaint Chief Complaint: Ext Problem - History obtained from History obtained from: Patient - History of Present Illness Timing - onset: How many weeks ago (has had prior foot infections with amputations initial of toes and then more recently mid foot amputation last February at [facility] and was healing slowly, without fully healing closed. But had been not seeming infected until the past several weeks or month. Pt states current dressing in place for 1-2 wks.) Timing - duration: Weeks Timing - details: Gradual onset, Still present (has noted drainage, wet dressing and foul odor from the foot stump. NO redness up the leg nor any fevers/ausea/general symptoms.) Location: LLE (foot stump end.) Quality / character: Discolored (red), Swelling, Draining Associated symptoms: No: Fever, Myalgias, N/V/D Similar symptoms before: Diagnosis (foot infections and diabetes, with prior a putations of this toes/foot/mid foot.) Recently seen: Not recently seen Review of Systems Constitutional: denies: Fever, Chills, Myalgias Neurologic: reports: Numbness (generally on feet and ankles due to diabetes.) PD PAST MEDICAL HISTORY - Past Medical History Past Medical History: Yes Cardiovascular: Hypertension, High cholesterol Respiratory: None Neuro: Peripheral neuropathy Endocrine/Autoimmune: Type 2 diabetes GI: None : None HEENT: None Psych: None Musculoskeletal: Other Derm: None - Past Surgical History Past Surgical History: Yes General: Appendectomy Ortho: Amputation - Present Medications Home Medications: Ambulatory Orders Medication Instructions Recorded Confirmed Insulin Glargine,Hum.rec.anlog 45 units SQ QPM 03/07/15 01/27/23 [Lantus Solostar] Liraglutide [Victoza 2-Florian] 1.8 mg SUBQ 05/13/18 08/02/22 metFORMIN [Glucophage] 1,000 mg PO BIDWM 09/29/18 01/21/23 amLODIPine [Norvasc] 10 mg PO BID 12/28/18 01/21/23 Gabapentin [Neurontin] 1,200 mg PO BID 02/05/21 01/21/23 Losartan Potassium [Cozaar] 100 mg PO DAILY 02/05/21 01/21/23 Insulin Lispro [Humalog] 3 - 12 unit SUBQ TIDWM 30 Days #1 06/28/22 01/21/23 packet Oxycodone HCl/Acetaminophen 1 each PO Q6H PRN #14 tablet 09/25/22 01/21/23 [Percocet 5-325 mg Tablet] Oxycodone HCl/Acetaminophen 1 each PO Q6H PRN 01/27/23 01/21/23 [Percocet 5-325 mg Tablet] Amlodipine Besylate [Norvasc] 10 mg PO DAILY #30 tablet 09/13/23 Insulin Glargine [Lantus Solostar] 40 unit SUBQ DAILY #1 ea 09/13/23 Losartan Potassium 100 mg PO DAILY #30 tab 09/13/23 Meloxicam [Mobic] 7.5 mg PO BID 10 Days #20 tablet 09/13/23 Mupirocin 2% Oint [Bactroban 2% 1 applic TOP TID #15 gm 09/13/23 Oint] Oxycodone HCl/Acetaminophen 1 each PO TID PRN #20 tablet 09/13/23 [Percocet 10-325 mg Tablet] cephALEXin [Keflex] 500 mg PO TID #20 cap 09/13/23 clindamycin HCL [Clindamycin HCl] 300 mg PO TID 7 Days #20 cap 09/13/23 - Allergies Allergies/Adverse Reactions: Allergies Allergy/AdvReac Type Severity Reaction Status Date / Time No Known Drug Allergies Allergy Verified 09/13/23 08:13 - Social History Does the pt smoke?: No Smoking Status: Never smoker Does the pt drink ETOH?: Yes Does the pt have substance abuse?: No - Immunizations Immunizations are current?: Yes - POLST Patient has POLST: No POLST Status: Full Code PD ED PE NORMAL - Vitals Vital signs reviewed: Yes - General General: Alert and oriented X 3, Well developed/nourished, Other (appears in pain due to left mid foot.) - Neck Neck: Supple, no meningeal sign, No adenopathy - Cardiac Cardiac: RRR, No murmur - Respiratory Respiratory: Clear bilaterally - Derm Derm: Normal color, Warm and dry - Extremities Extremities: Other (left foot with amputation at mid foot, with thick scaley skin built up at tip. It is dry and hard. There is some rounded open sore at dorsal aspect and mild weeping clear fluid draiange without fluctuance nor purulence. It does have malodor. ) - Neuro Neuro: No motor deficit Results - Vitals Vitals: Vital Signs - 24 hr 09/13/23 09/13/23 09/13/23 08:09 09:59 11:58 Temperature 36.9 C Heart Rate 101 H 71 81 Respiratory 20 18 18 Rate Blood Pressure 210/89 H 194/113 H 187/96 H O2 Saturation 96 98 99 Oxygen O2 Source Room air - Labs Labs: Microbiology 09/13/23 08:39 Wound Culture - Preliminary Foot - Left Laboratory Tests 09/13/23 09/13/23 09/13/23 09:02 09:02 09:02 WBC 7.7 RBC 4.66 L Hgb 15.1 Hct 43.2 MCV 92.7 MCH 32.4 H MCHC 35.0 RDW 11.9 L Plt Count 238 MPV 10.2 Neut # (Auto) 5.2 Lymph # (Auto) 1.2 L [place] # (Auto) 0.9 Eos # (Auto) 0.3 Baso # (Auto) 0.1 Absolute Nucleated RBC 0.00 Nucleated RBC % 0.0 ESR 15 Sodium 131 L Potassium 4.5 Chloride 96 L Carbon Dioxide 27 Anion Gap 8.0 BUN 16 Creatinine 0.7 Estimated GFR (MDRD) 115 Glucose 440 H Calcium 9.2 Total Bilirubin 0.6 AST 12 ALT 14 Alkaline Phosphatase 90 C-Reactive Protein 0.5 Total Protein 6.8 Albumin 4.0 Globulin 2.8 Albumin/Globulin Ratio 1.4 Lipase 25 PD Medical Decision Making - ED course Complexity details: reviewed results (ESR, WBC are okay, as is ESR and CRP. No signs of deeper tissue involvement.), considered differential (having apparent infection at prior amputation end. Old appearing dressing removed. No FB noted. Adequate palpable DP and post tibial pulses. Foul odor from stump end. ), d/w patient ED course: he states he is out of his Lantus, BP meds as well. I can give script to bridge until he can see PCP. Can also give pain meds. Await culture. I was able to use scalpel to debride the hard/dried scaly skin from the end of the stump, to get down to pink appearing tissue. He tolerated well as I was debriding hard keratinizedd tissue. I did not come abross any fluid/abscess feeling area. Departure - Departure Disposition: 01 Home, Self Care Clinical Impression: Complication of foot amputation stump, Wound infection Condition: Stable Record reviewed to determine appropriate education?: Yes Follow-Up: Ashanti Jimenes DPM [Provider Admit Priv/Credential] - Adam Lin DPM [Physician No Access] - [facility] [Provider Group] Prescriptions: Mupirocin 2% Oint [Bactroban 2% Oint] 1 applic TOP TID #15 gm clindamycin HCL [Clindamycin HCl] 300 mg PO TID 7 Days #20 cap cephALEXin [Keflex] 500 mg PO TID #20 cap Insulin Glargine [Lantus Solostar] 40 unit SUBQ DAILY #1 ea Losartan Potassium 100 mg PO DAILY #30 tab Meloxicam [Mobic] 7.5 mg PO BID 10 Days #20 tablet Amlodipine Besylate [Norvasc] 10 mg PO DAILY #30 tablet Oxycodone HCl/Acetaminophen [Percocet 10-325 mg Tablet] 1 each PO TID PRN #20 tablet PRN Reason: Pain 5-7 Comments: Initially if you can soak the foot in wound and will warm water for at least 10 to 15 minutes daily and then pat dry. This will help try to cleanse it out and allow better drainage. I did debride a fair amount of the tissue. There may be more that is needed. Use mupirocin antibiotic ointment to the area and then cover with dressing. Try to do this daily initially and then as it is draining less, can be every 2 or 3 days. Follow-up with your primary care however within the next week or so for reevaluation. Will start antibiotics of both cephalexin and clindamycin for this. I did do a wound culture and will see with this results in the next 2 to 3 days if we need to modify the antibiotics and hopefully treatment down to just 1. I wrote prescriptions for your regular blood pressure medicines of amlodipine and losartan as well as your Lantus insulin. Control of your blood pressure and blood sugar will be helpful with wound healing. Other medications per your primary care. In the short-term for pain of this, I prescribed a combination of meloxicam anti-inflammatory as well as higher strength oxycodone for the pain. I sent all your prescriptions to the [facility] pharmacy. Your basic blood tests of white count and inflammatory markers are normal and on exam I do not get a sense of this being down to the bone or deeper layers. Will see how this clears. Your primary care may also be able to refer you to the wound care clinic. I also provided the numbers for 2 of the podiatry offices here in [place] and [place]. I am prescribing a short course of narcotic pain medication for you. These are potentially dangerous and addictive medications that should be used carefully. These medications may constipate you. Take an uppm-pjy-amtdpec stool softener such as docusate twice daily with plenty of water while taking these medications. If you go 24 hours without a bowel movement, take iizc-lie-skunvup MiraLAX, per package instructions. Do not drink or drive while taking these medications. If you received narcotic or sedating medications while in the emergency department do not drive for 24 hours. Store this medication in a safe, secure place and out of reach of children. It is a violation of federal law to give or sell this medication to another person or to use in a manner other than prescribed. The ED will not refill narcotic prescriptions, including prescriptions lost or stolen. You can dispose of unwanted medications at [facility] or at several pharmacies such as [facility]. Forms: PCP List Discharge Date/Time: 09/13/23 12:14
[2023-09-13] MEDS ORDERED: SODIUM CHLORIDE 0.9% 1,000 ML IV STA (08:41)
[2023-09-13] MEDS ORDERED: HYDROmorphone 1 MG/ML CARPUJECT IVP STA ×3 (08:42→11:41)
[2023-09-13] MEDS ORDERED: ceFAZolin (2G) 2 GM in SODIUM CHLORIDE 0.9% 100ML 100 ML IV STA (08:42)
[2023-09-13] MEDS ORDERED: KETOROLAC 15 MG/ML VIAL IVP STA (08:42)
[2023-09-13] MEDS ORDERED: CLINDAMYCIN 600 MG/50 ML 50 ML IV ONE (08:42)
[2023-09-13] MEDS ORDERED: ceFAZolin (2G) 2 GM in SODIUM CHLORIDE 0.9% MINIBAG 100 ML IV STA (08:57)
[2023-09-13 09:07] LABS: BASOPHILS # (AUTO) 0.1 10^3/uL (0.0-0.1); EOSINOPHILS # (AUTO) 0.3 10^3/uL (0.0-0.7); EOSINOPHILS % (AUTO) 3.9 %; HCT - HEMATOCRIT 43.2 % (42.0-52.0); HGB - HEMOGLOBIN 15.1 g/dL (14.0-18.0); LYMPHOCYTES # (AUTO) 1.2 10^3/uL (1.5-3.5); LYMPHOCYTES % (AUTO) 16.1 %; MEAN CORPUSCULAR HEMOGLOBIN 32.4 pg (27.0-31.0); MEAN CORPUSCULAR VOLUME 92.7 fL (80.0-94.0); MEAN PLATELET VOLUME 10.2 fL (7.4-11.4); MONOCYTES # (AUTO) 0.9 10^3/uL (0.0-1.0); MONOCYTES % (AUTO) 11.4 %; NEUTROPHILS # (AUTO) 5.2 10^3/uL (1.5-6.6); NEUTROPHILS % (AUTO) 67.3 %; PLT - PLATELET COUNT 238 10^3/uL (130-450); RED BLOOD COUNT 4.66 10^6/uL (4.70-6.10); RED CELL DISTRIBUTION WIDTH 11.9 % (12.0-15.0); WHITE BLOOD COUNT 7.7 x10^3/uL (4.8-10.8)
[2023-09-13 09:21] LABS: ALBUMIN/GLOBULIN RATIO 1.4 (1.0-2.2); BILIRUBIN,TOTAL 0.6 mg/dL (0.2-1.0); CALCIUM 9.2 mg/dL (8.5-10.3); CREATININE 0.7 mg/dL (0.6-1.3); POTASSIUM 4.5 mmol/L (3.5-4.5); TOTAL PROTEIN 6.8 g/dL (6.4-8.9)
[2023-09-13] MEDS ORDERED: INSULIN GLARGINE-YFGN 300 UNIT/3 ML PEN SUBQ STA (10:32)
[2023-09-13] MEDS ORDERED: amLODIPine 5 MG TABLET PO STA (10:32)
[2023-09-13] MEDS ORDERED: LOSARTAN 50 MG TABLET PO STA (10:32)
[2023-09-13] MEDS ORDERED: MUPIROCIN 2% OINT 1 GM TOP STA (11:41)
[2023-09-13 11:59] VITALS: BP 187/96; O2SAT 99
[2023-09-13 16:00] LABS: CRP - C-REACTIVE PROTEIN 0.5 mg/dL (0-1.0)
== END 2023-09-13 12:14 | disposition home or self-care (01) ==
LOC: ED 08:04
DX: T87.44 Infection of amputation stump, left lower extremity (principal); I10 Essential (primary) hypertension; E78.00 Pure hypercholesterolemia, unspecified; E11.40 Type 2 diabetes mellitus with diabetic neuropathy, unspecified; Z89.432 Acquired absence of left foot; Z79.4 Long term (current) use of insulin; Z79.84 Long term (current) use of oral hypoglycemic drugs; Z79.899 Other long term (current) drug therapy
CPT/HCPCS: 36415; 80053; 83690; 85025; 85651; 86140; 87070; 87077; 87181; 87205; 97597; 99284

== ENCOUNTER 2023-12-16 12:25 | Outpatient (CLI) | payer MEDICARE | END 2023-12-16 23:59 | disposition critical access hospital (66) | LOC: EMS 12:25 | DX: E11.65 Type 2 diabetes mellitus with hyperglycemia (principal); R07.89 Other chest pain; R06.02 Shortness of breath | CPT/HCPCS: A0425; A0429 ==

== ENCOUNTER 2023-12-16 12:41 | Inpatient (IN) | payer MEDICARE ==
--- NOTE | 2023-12-16 12:59 | ED Physician Documentation ---
PD HPI CHEST PAIN - Stated complaint Stated Complaint: HYPERGLYCEMIA - Chief complaint Chief Complaint: Cardiac - History obtained from History obtained from: Patient - History of Present Illness Timing - onset: How many days ago (several days to week of chest pain with cough and breathing problems. No fevers.) Timing - onset during: Light activity Timing - duration: Days Timing - details: Gradual onset, Still present Quality: Aching, Sharp, Pain Location: Right chest Associated symptoms: Shortness of air Similar symptoms before: Has not had sx before Recently seen: Emergency Dept (yesterday with IV fluidsa and meds. Had ketones without acidosis. imporved with IV fluids, insulin and dilaudud, toradol. Improved enough for discharge.) PD PAST MEDICAL HISTORY - Past Medical History Cardiovascular: Hypertension, High cholesterol Respiratory: None Neuro: Peripheral neuropathy Endocrine/Autoimmune: Type 2 diabetes GI: None : None HEENT: None Psych: None Musculoskeletal: Other Derm: None - Past Surgical History Past Surgical History: Yes General: Appendectomy Ortho: Amputation - Present Medications Home Medications: Ambulatory Orders Medication Instructions Recorded Confirmed Insulin Glargine,Hum.rec.anlog 45 units SQ QPM 03/07/15 12/16/23 [Lantus Solostar] Liraglutide [Victoza 2-Florian] 1.8 mg SUBQ DAILY 05/13/18 12/16/23 metFORMIN [Glucophage] 1,000 mg PO BIDWM 09/29/18 12/16/23 amLODIPine [Norvasc] 10 mg PO BID 12/28/18 12/16/23 Gabapentin [Neurontin] 1,200 mg PO BID 02/05/21 12/16/23 Losartan Potassium [Cozaar] 100 mg PO DAILY 02/05/21 12/16/23 Insulin Lispro [Humalog] 3 - 12 unit SUBQ TIDWM 30 Days #1 06/28/22 12/16/23 packet Amlodipine Besylate [Norvasc] 10 mg PO DAILY #30 tablet 09/13/23 12/16/23 Albuterol Sulf [Ventolin Hfa 1 - 2 puffs INH Q4HR PRN #1 each 12/15/23 12/16/23 Inhaler] Amox/Clav 875/125 [Augmentin] 1 each PO Q12H #14 tablet 12/15/23 12/16/23 Insulin Detemir [Levemir] 40 unit SUBQ QPM #10 ml 12/15/23 12/16/23 Insulin Glargine [Lantus Solostar] 40 unit SUBQ DAILY #1 each 12/15/23 12/16/23 Meloxicam [Mobic] 7.5 mg PO BID 10 Days #20 tablet 12/15/23 12/16/23 Oxycodone HCl/Acetaminophen 1 each PO Q6H PRN #20 tablet 12/15/23 12/16/23 [Percocet 5-325 mg Tablet] - Allergies Allergies/Adverse Reactions: Allergies Allergy/AdvReac Type Severity Reaction Status Date / Time No Known Drug Allergies Allergy Verified 12/16/23 12:51 - Social History Does the pt smoke?: No Smoking Status: Never smoker Does the pt drink ETOH?: Yes Does the pt have substance abuse?: No - Immunizations Immunizations are current?: Yes - POLST Patient has POLST: No POLST Status: Full Code Results - Vitals Vitals: Vital Signs - 24 hr 12/16/23 12/16/23 12:43 13:13 Temperature 36.0 C L Heart Rate 64 68 Respiratory 21 20 Rate Blood Pressure 126/71 117/64 O2 Saturation 94 97 Oxygen O2 Source Room air - Labs Labs: Laboratory Tests 12/16/23 12/16/23 12/16/23 13:20 13:20 13:20 WBC 14.8 H RBC 4.17 L Hgb 13.5 L Hct 40.3 L MCV 96.6 H MCH 32.4 H MCHC 33.5 RDW 11.6 L Plt Count 355 MPV 10.0 Neut # (Auto) 11.5 H Lymph # (Auto) 0.9 L [place] # (Auto) 2.0 H Eos # (Auto) 0.0 Baso # (Auto) 0.0 Absolute Nucleated RBC 0.00 Band Neuts % (Manual) Not Reportable Abnorm Lymph % (Manual) Not Reportable Nucleated RBC % 0.0 Neutrophils # (Manual) Not Reportable Lymphocytes # (Manual) Not Reportable Monocytes # (Manual) Not Reportable Eosinophils # (Manual) Not Reportable Basophils # (Manual) Not Reportable Differential Comment MANUAL=AUTO DIFF Manual Slide Review Indicated WBC Morphology NORMAL APPEARANCE Platelet Estimate NORMAL (130-450,000) Platelet Morphology NORMAL APPEARANCE RBC Morph Micro Appear NORMAL APPEARANCE VBG pH VBG pCO2 VBG pO2 VBG HCO3 VBG Total CO2 VBG O2 Saturation VBG Base Excess Sodium 128 L Potassium 5.1 H Chloride 97 L Carbon Dioxide 11 L* Anion Gap 20.0 H BUN 29 H Creatinine 0.9 Estimated GFR (MDRD) 86 L Glucose 475 H POC Whole Bld Glucose Calcium 8.7 Magnesium 2.0 Total Bilirubin 0.3 AST 6 L ALT 7 L Alkaline Phosphatase 68 Troponin I High Sens 3.4 Total Protein 6.2 L Albumin 2.9 L Globulin 3.3 Albumin/Globulin Ratio 0.9 L Lipase < 10 L Serum Ketones SMALL H 12/16/23 12/16/23 14:09 14:14 WBC RBC Hgb Hct MCV MCH MCHC RDW Plt Count MPV Neut # (Auto) Lymph # (Auto) [place] # (Auto) Eos # (Auto) Baso # (Auto) Absolute Nucleated RBC Band Neuts % (Manual) Abnorm Lymph % (Manual) Nucleated RBC % Neutrophils # (Manual) Lymphocytes # (Manual) Monocytes # (Manual) Eosinophils # (Manual) Basophils # (Manual) Differential Comment Manual Slide Review WBC Morphology Platelet Estimate Platelet Morphology RBC Morph Micro Appear VBG pH 7.207 L VBG pCO2 32.5 L VBG pO2 66.3 H VBG HCO3 12.6 L VBG Total CO2 13.6 L VBG O2 Saturation 92.5 H VBG Base Excess -14.1 L Sodium Potassium Chloride Carbon Dioxide Anion Gap BUN Creatinine Estimated GFR (MDRD) Glucose POC Whole Bld Glucose 440 H Calcium Magnesium Total Bilirubin AST ALT Alkaline Phosphatase Troponin I High Sens Total Protein Albumin Globulin Albumin/Globulin Ratio Lipase Serum Ketones PD Medical Decision Making - ED course Complexity details: reviewed results (acidotic and ketotic. Lytes reasonably good. Given IV fluids and antiemetics with IV insulin with fluids. ), re- evaluated patient (less abd pain and chest pain, also less nausea. ), considered differential (is having persistent chest pain right side. hurts with breathing. Has elevated blood sugar related to problems with insulins from [employer] (ins urance changed what it covers), so not getting basal insulin for week or more. Sugars elevated. 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 He is still having the chest pain, and I don't know the best way to treat it. Presume pain meds. I did not repeat any tests for the chest pain at this - Critical Care Time(min): 40 Time Includes: Direct patient care, Reassess patient, Document care, Medical consult Data interpretation: Labs, ABG Departure - Departure Disposition: [facility] DC/Xfer Clinical Impression: Pleuritic chest pain, Pleural effusion, DKA (diabetic ketoacidosis), Nausea and vomiting Condition: Stable Discharge Date/Time: 12/16/23 15:54
[2023-12-16 13:25] LABS: BASOPHILS % (AUTO) 0.3 %; EOSINOPHILS % (AUTO) 0.1 %; HCT - HEMATOCRIT 40.3 % (42.0-52.0); HGB - HEMOGLOBIN 13.5 g/dL (14.0-18.0); LYMPHOCYTES # (AUTO) 0.9 10^3/uL (1.5-3.5); LYMPHOCYTES % (AUTO) 6.4 %; MEAN CORPUSCULAR HEMOGLOBIN 32.4 pg (27.0-31.0); MEAN CORPUSCULAR HGB CONC 33.5 g/dL (32.0-36.0); MEAN CORPUSCULAR VOLUME 96.6 fL (80.0-94.0); MONOCYTES % (AUTO) 13.6 %; NEUTROPHILS # (AUTO) 11.5 10^3/uL (1.5-6.6); NEUTROPHILS % (AUTO) 78.1 %; PLT - PLATELET COUNT 355 10^3/uL (130-450); RED BLOOD COUNT 4.17 10^6/uL (4.70-6.10); RED CELL DISTRIBUTION WIDTH 11.6 % (12.0-15.0); WHITE BLOOD COUNT 14.8 x10^3/uL (4.8-10.8)
[2023-12-16 13:27] LABS: SLIDE REVIEW? Indicated
[2023-12-16 13:45] LABS: TROPONIN I HIGH SENSITIVITY 3.4 ng/L (2.3-19.7)
[2023-12-16] MEDS: HYDROmorphone 2 MG/ML VIAL IVP STA (13:46)
[2023-12-16] MEDS: SODIUM CHLORIDE 0.9% 1,000 ML IV STA (13:47)
[2023-12-16 13:49] LABS: KETONES, SERUM (ACETEST) SMALL (NEGATIVE)
[2023-12-16 13:53] LABS: ALBUMIN 2.9 g/dL (3.2-5.5); ALBUMIN/GLOBULIN RATIO 0.9 (1.0-2.2); ALKALINE PHOSPHATASE 68 IU/L (42-121); ALT ALANINE AMINOTRANSFERASE 7 IU/L (10-60); AST ASPARTATE AMINOTRANSFERASE 6 IU/L (10-42); BILIRUBIN,TOTAL 0.3 mg/dL (0.2-1.0); BUN - BLOOD UREA NITROGEN 29 mg/dL (6-20); CALCIUM 8.7 mg/dL (8.5-10.3); CARBON DIOXIDE - CO2 11 mmol/L (21-32); CHLORIDE 97 mmol/L (101-111); CREATININE 0.9 mg/dL (0.6-1.3); GFR - MDRD 86 (>89); GLUCOSE 475 mg/dL (74-104); LIPASE < 10 U/L (11-82); POTASSIUM 5.1 mmol/L (3.5-4.5); SODIUM 128 mmol/L (135-145); TOTAL PROTEIN 6.2 g/dL (6.4-8.9)
--- NOTE | 2023-12-16 14:02 | XRAY Report ---
PROCEDURE: Chest 1V INDICATIONS: Chest pain TECHNIQUE: One view of the chest was acquired. COMPARISON: Chest x-ray 12/15/[address] chest 12/15/2023. FINDINGS: Surgical changes and devices: None. Lungs and pleura: No pneumothorax. Stable right parahilar opacities related to loculated pleural eff usions. Mediastinum: Mediastinal contours appear normal. Heart size is normal. Bones and chest wall: No suspicious bony lesions. Overlying soft tissues appear unremarkable. IMPRESSION: Stable examination compared 12/15/2023 with no change in right perihilar opacities. Reviewed by: Sherly Wu MD, PhD on 12/16/2023 2:01 PM PST Approved by: Sherly Wu MD, PhD on 12/16/2023 2:01 PM PST Station ID: [id number]
[2023-12-16 14:09] LABS: DIFFERENTIAL COMMENT MANUAL=AUTO DIFF; PLATELET ESTIMATE, MANUAL NORMAL (130-450,000) (NORMAL); PLATELET MORPHOLOGY NORMAL APPEARANCE (NORMAL); RBC MORPHOLOGY (MULTIPLE) NORMAL APPEARANCE (NORMAL); WBC MORPHOLOGY (MULTIPLE) NORMAL APPEARANCE (NORMAL)
[2023-12-16 14:20] LABS: VBG HCO3 12.6 mmol/L (23-28); VBG PCO2 32.5 mmHg (41-51); VBG PH 7.207 (7.31-7.41); VBG PO2 66.3 mmHg (25-47); VBG TOTAL CO2 13.6 mmol/L (24-29)
[2023-12-16 14:21] LABS: VBG BASE EXCESS -14.1 mmol/L (-2 - +2); VBG OXYGEN SATURATION 92.5 % (60-80)
[2023-12-16] MEDS ORDERED: ONDANSETRON ODT 4 MG TABLET TL PRN (14:31)
--- NOTE | 2023-12-16 14:38 | HISTORY & PHYSICAL EXAMINATION ---
Chief Complaint - Chief Complaint Chief Complaint: chest pain History of Present Illness - Admitted From Admitted From:: ED - History Obtained From Records Reviewed: Yes History obtained from: Patient Exam Limitations: No - History of Present Illness HPI Comment/Other: A 58yo M with hx of DM complicated with peripheral neuropathy, DM foot infection, HTN, HLD, noncompliance Presented to ED for chest pain, nausea, abdominal pain. Patient reports his chest pain for about 10 days, it is nagging, intermittent pain, localized on left side. worsen when taking deep breath, or any movement, Denies fever or chills, no cough or runny nose. But overall unwell feeling. In the past few days, he started to have nausea, abdominal pain. He states he is not compliant with insulin use, especially the short acting insulin makes him sick. He came to the ED on 12/15/2023, Had CT chest, showed right lower lobe loculated effusion. ED provider discussed with radiologist, no indication for draining or other intervention. Mild ketosis noted on labs, patient improved with fluid, sq insulin and albuterol treatment. Patient was sent home on insulin. Today, patient returned to ED, with worsening unwell feeling and nausea, abdominal pain. In the ED, his VSS, elevated Bp noted, Lab shows WBC 14.8, Na 128, K 5.1, Bicab 11, AG 22, pH 7.2 , small keton, lipase negative. CXR: stable right lower lobe opacity. Patient was given fluid, admitted to [facility] History - Past Medical History Cardiovascular: reports: Hypertension, High cholesterol Respiratory: reports: None Neuro: reports: Peripheral neuropathy Endocrine/Autoimmune: reports: Type 2 diabetes GI: reports: None : reports: None HEENT: reports: None Psych: reports: None Musculoskeletal: reports: Other Derm: reports: None MRSA Hx?: No - Past Surgical History General: reports: Appendectomy Ortho: reports: Amputation - Family & Social History Family History: Mother: , Alzheimer's Disease, Father: , CAD, Diabetes, Type 2, Hyperlipidemia, Hypertension, NC, Other family: CVA/TIA Family History Comment/Other: Reports his father had heart disease and diabetes. He passes from a large myocardial infarction. His grandmother also had diabetes. Social History Notes: The patient lives at home with a roommate. 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 He has been there for the last 4 months. He does report drinking 1-2 alcoholic beverages a day for quite a few years. Denies a history of alcohol withdrawal. He did smoke a pack to a pack and 1/2 a day for about 30 years but quit 1 year ago. He denies any illicit drug use. - Substance History Use: Uses substance without health or social issues: Tobacco, Alcohol - POLST Patient has POLST: No POLST Status: Full Code Meds/Allgy - Home Medications Home Medications: Ambulatory Orders Medication Instructions Recorded Confirmed Insulin Glargine,Hum.rec.anlog 45 units SQ QPM 03/07/15 12/16/23 [Lantus Solostar] Liraglutide [Victoza 2-Florian] 1.8 mg SUBQ DAILY 05/13/18 12/16/23 metFORMIN [Glucophage] 1,000 mg PO BIDWM 09/29/18 12/16/23 amLODIPine [Norvasc] 10 mg PO BID 12/28/18 12/16/23 Gabapentin [Neurontin] 1,200 mg PO BID 02/05/21 12/16/23 Losartan Potassium [Cozaar] 100 mg PO DAILY 02/05/21 12/16/23 Insulin Lispro [Humalog] 3 - 12 unit SUBQ TIDWM 30 Days #1 06/28/22 12/16/23 packet Amlodipine Besylate [Norvasc] 10 mg PO DAILY #30 tablet 09/13/23 12/16/23 Albuterol Sulf [Ventolin Hfa 1 - 2 puffs INH Q4HR PRN #1 each 12/15/23 12/16/23 Inhaler] Amox/Clav 875/125 [Augmentin] 1 each PO Q12H #14 tablet 12/15/23 12/16/23 Insulin Detemir [Levemir] 40 unit SUBQ QPM #10 ml 12/15/23 12/16/23 Insulin Glargine [Lantus Solostar] 40 unit SUBQ DAILY #1 each 12/15/23 12/16/23 Meloxicam [Mobic] 7.5 mg PO BID 10 Days #20 tablet 12/15/23 12/16/23 Oxycodone HCl/Acetaminophen 1 each PO Q6H PRN #20 tablet 12/15/23 12/16/23 [Percocet 5-325 mg Tablet] - Allergies Allergies/Adverse Reactions: Allergies Allergy/AdvReac Type Severity Reaction Status Date / Time No Known Drug Allergies Allergy Verified 12/16/23 12:51 Review of Systems - Constitutional Constitutional: reports: Fatigue, Malaise, Weakness. denies: Fever, Chills - Eyes Eyes: denies: Blurred vision, Dipolpia - Ears, Nose & Throat Ears, Nose & Throat: denies: Hearing loss, Sore throat - Cardiovascular Cariovascular: reports: Chest pain. denies: Irregular heart rate, Lightheadedness, Syncope - Respiratory Respiratory: reports: Pleuritic pain. denies: Cough, Wheezing - Gastrointestinal Gastrointestinal: reports: Abdominal pain, Nausea. denies: Constipation - Genitourinary Genitourinary: denies: Dysuria, Frequency, Urgency - Musculoskeletal Musculoskeletal: denies: Muscle pain, Stiffness - Integumentary Integumentary: denies: Rash - Neurological Neurological: reports: General weakness, Numbness. denies: Focal weakness, Dizziness - Psychiatric Psychiatric: reports: Anxiety - Endocrine Endocrine: denies: Polyuria, Polydypsia - Hematologic/Lymphatic Hematologic/Lymphatic: denies: Bruising, Petechiae Prior Level of Functionality: independent ADLs Exam - Vital Signs Reviewed Vital Signs: Yes Vital Signs: Vital Signs x48h Temp Pulse Resp BP Pulse Ox 12/16/23 13:13 68 20 117/64 97 12/16/23 12:43 36.0 C L 64 21 126/71 94 - Physical Exam General Appearance: positive: Mild distress (due to discomfort), Anxious Eyes Bilateral: positive: Normal inspection, PERRL, EOMI ENT: positive: ENT inspection nml Neck: positive: Nml inspection, No JVD Respiratory: positive: Chest non-tender. negative: No respiratory distress, Wheezes, Rales Cardiovascular: positive: Regular rate & rhythm. negative: Tachycardia Peripheral Pulses: positive: 2+ Abdomen: negative: Guarding, Rebound Skin: positive: Color nml, Warm, Dry Extremities: positive: Non-tender, Full ROM, Other (s/p TMA bilaterally) Neurologic/Psychiatric: positive: Oriented x3 Sepsis Event Note (H) - Evaluation Current Stage of Sepsis: Ruled out Conclusion/Plan - Problem List (1) Secondary DM with DKA, uncontrolled Conclusion/Plan: DKA due to noncompliance, will response to SQ insulin well, defer insulin drip if not improved properly -iv fluid -SQ insulin as ordered -recheck BMP, adjust Insulin use afterward -resume long acting insulin at night home dose 40units, but reported hypoglyc emia events, use 30units tonight, will adjust pending further BS data -check A1C, fasting lipid tomorrow -Nutrition consult, DM education (2) Leukocytosis Conclusion/Plan: Along with pleural chest pain, right lower lobe opacity on CT chest -start on ceftriaxone -monitoring symptoms and WBC, CRP (3) Chest pain, pleuritic Conclusion/Plan: Concerns of community acquired pneumonia, Unwell feeling, pleuritic pain, leukocytosis, in an uncontrolled DM patient, who developed DKA the possible infection may be a trigger for his DKA -give ceftriaxone -give albuterol inhaler -oxygen treatment as needed -check troponin to rule out ACS (4) Diabetic neuropathy Conclusion/Plan: continue gabapentin Qualifiers: Diabetes mellitus type: type 2 (5) Peripheral neuropathy Conclusion/Plan: -continue gabapentin (6) HTN (hypertension) Conclusion/Plan: -continue losartan, amlodipin Qualifiers: - Lab Results Fish Bones: 12/16/23 13:20 12/16/23 13:20
[2023-12-16] MEDS: HYDROmorphone 1 MG/ML CARPUJECT IVP STA (14:50)
[2023-12-16] MEDS: KETOROLAC 15 MG/ML VIAL IVP STA (14:51)
[2023-12-16] MEDS: SODIUM CHLORIDE 0.9% 1,000 ML IV SCH (16:18)
[2023-12-16] MEDS: oxyCODONE 5 MG TABLET PO PRN (16:25)
[2023-12-16] MEDS: ACETAMINOPHEN 325 MG TABLET PO PRN (16:26)
[2023-12-16] MEDS: INSULIN LISPRO 300 UNIT/3 ML PEN SUBQ SCH ×2 (16:57→22:35)
[2023-12-16] MEDS: SODIUM CHLORIDE FLUSH 0.9% 10 ML SYRINGE IVP SCH (17:10)
[2023-12-16] MEDS: SODIUM CHLORIDE 0.9% 1,000 ML IV ONE (18:04)
[2023-12-16 18:53] LABS: CALCIUM 8.5 mg/dL (8.5-10.3)
[2023-12-16] MEDS: INSULIN REGULAR HUMAN 300 UNIT/3 ML VIAL IVP ONE (19:40)
[2023-12-16] MEDS: GABAPENTIN 300 MG CAPSULE PO SCH (20:50)
[2023-12-16] MEDS ORDERED: INSULIN GLARGINE-YFGN 300 UNIT/3 ML PEN SUBQ SCH (21:00)
[2023-12-16] MEDS: ONDANSETRON 4 MG/2 ML VIAL IVP PRN (21:29)
[2023-12-16] MEDS: HYDROmorphone 0.5 MG/0.5 ML SYRINGE IVP STA (21:50)
[2023-12-16] MEDS: INSULIN GLARGINE-YFGN 300 UNIT/3 ML PEN SUBQ SCH (22:29)
[2023-12-16] MEDS: ZOLPIDEM 5 MG TABLET PO PRN (22:30)
[2023-12-16] MEDS: INSULIN LISPRO 300 UNIT/3 ML PEN SUBQ STA (22:33)
[2023-12-17 04:52] LABS: BASOPHILS % (AUTO) 0.1 %; EOSINOPHILS # (AUTO) 0.1 10^3/uL (0.0-0.7); EOSINOPHILS % (AUTO) 1.4 %; HCT - HEMATOCRIT 30.4 % (42.0-52.0); HGB - HEMOGLOBIN 10.9 g/dL (14.0-18.0); LYMPHOCYTES # (AUTO) 1.1 10^3/uL (1.5-3.5); MEAN CORPUSCULAR HEMOGLOBIN 33.3 pg (27.0-31.0); MEAN CORPUSCULAR HGB CONC 35.9 g/dL (32.0-36.0); MEAN PLATELET VOLUME 9.5 fL (7.4-11.4); MONOCYTES # (AUTO) 1.4 10^3/uL (0.0-1.0); MONOCYTES % (AUTO) 16.3 %; NEUTROPHILS # (AUTO) 6.1 10^3/uL (1.5-6.6); NEUTROPHILS % (AUTO) 69.2 %; PLT - PLATELET COUNT 247 10^3/uL (130-450); RED BLOOD COUNT 3.27 10^6/uL (4.70-6.10); RED CELL DISTRIBUTION WIDTH 11.5 % (12.0-15.0); WHITE BLOOD COUNT 8.8 x10^3/uL (4.8-10.8)
[2023-12-17 05:05] LABS: CALCIUM 7.9 mg/dL (8.5-10.3); CREATININE 0.7 mg/dL (0.6-1.3); POTASSIUM 4.5 mmol/L (3.5-4.5)
[2023-12-17 05:06] LABS: CHOL/HDL RATIO 4.8 (<5.0); CHOLESTEROL 150 mg/dL; HDL CHOLESTEROL 31 mg/dL; LDL CHOLESTEROL,CALCULATED 92 mg/dL; TRIGLYCERIDES 135 mg/dL (48-352); VLDL CHOLESTEROL 27 mg/dL
--- NOTE | 2023-12-17 08:05 | PROVIDER PROGRESS NOTE ---
Assessment/Plan - Problem List (1) Secondary DM with DKA, uncontrolled Assessment/Plan: DKA resolved AG closed at 9 Bicarb normalized at 21 hypothermia improving hyperkalemia resolved hypocalcemia: give tums (2) Leukocytosis Assessment/Plan: improving, resolved can have component of dilutional effect from iv fluid and response to antibiotic -continue ceftrioxon for total 3 days, then transition to oral (3) Chest pain, pleuritic Assessment/Plan: improving patient still have pleuritic pain, but better Ruled out ACS, with troponin neg X3, and neg EKG (4) Diabetic neuropathy Qualifiers: Diabetes mellitus type: type 2 Assessment/Plan: continue with gabapentin (5) Peripheral neuropathy Assessment/Plan: stable, chronic continue with gabapentin (6) HTN (hypertension) Qualifiers: Assessment/Plan: Stable continue current regimen - Current Meds Current Meds: Current Medications Generic Name Dose Route Start Last Admin Trade Name Freq PRN Reason Stop Dose Admin Acetaminophen 650 mg 12/16/23 14:31 12/16/23 16:26 Acetaminophen 325 Mg Tablet PO 650 mg Q4HR PRN Administration Pain 1 to 4, or Fever Gabapentin 600 mg 12/16/23 21:00 12/16/23 20:50 Gabapentin 300 Mg Capsule PO 600 mg BID LILLIAN Administration Sodium Chloride 1,000 mls @ 100 mls/hr 12/16/23 15:00 12/17/23 03:47 Normal Saline 0.9% IV 12/17/23 14:59 100 mls/hr .Q10H LILLIAN Administration Insulin Glargine-yfgn 30 unit 12/16/23 21:00 12/16/23 22:29 Insulin Glargine-Yfgn 300 Unit/3 Ml Pen SUBQ 30 unit QPM LILLIAN Administration Insulin Human Lispro 3 - 11 unit 12/16/23 21:00 12/16/23 22:35 Insulin Lispro 300 Unit/3 Ml Pen SUBQ Not Given 0800,1200,1700,2100 [facility] Protocol Ondansetron HCl 4 mg 12/16/23 14:31 12/16/23 21:29 Ondansetron 4 Mg/2 Ml Vial IVP 4 mg Q6HR PRN Administration Nausea / Vomiting Oxycodone HCl 5 mg 12/16/23 14:31 12/17/23 06:13 Oxycodone 5 Mg Tablet PO 5 mg Q4HR PRN Administration Pain 5 to 7 Sodium Chloride 10 ml 12/16/23 17:00 12/16/23 21:50 Sodium Chloride Flush 0.9% 10 Ml Syringe IVP 10 ml 0100,0900,1700 LILLIAN Administration Zolpidem Tartrate 5 mg 12/16/23 17:11 12/16/23 22:30 Zolpidem 5 Mg Tablet PO 5 mg QPM PRN Administration Insomnia - Lab Result Fish Bone Diagrams: 12/17/23 04:43 12/17/23 04:43 - Additional Planning Condition/Complexity: Improved My Orders: My Active Orders 12/16/23 14:31 Activity Orders [RC] Q2HR IO [RC] IOSHIFT Incentive Spirometry - RT [RC] TID Initiate Bowel Care Protocol [RC] .protocol Initiate Bronchodialator Tony [RC] .PROTOCOL Initiate Line Care Protocol [RC] QSHIFT Initiate Personal Care Protoco [RC] .protocol Initiate Secretion Clearance P [RC] .PROTOCOL Oxygen Therapy [RC] .PRN Vital Signs [RC] 0800,1600,0000 Dietitian to Assess and Manage Nutrition [CONS] Routine Acetaminophen [Tylenol] 650 mg PO Q4HR PRN Ondansetron Inj [Zofran Inj] 4 mg IVP Q6HR PRN Ondansetron Odt [Zofran Odt] 4 mg TL Q6HR PRN Sodium Chloride Flush 0.9% [Normal Saline Flush 0.9%] 10 ml IVP PRN PRN oxyCODONE [Roxicodone] 5 mg PO Q4HR PRN Condition of Patient [OTHERS] Routine DVT Prophylaxis [OTHERS] Routine 12/16/23 14:37 Blood Glucose Checks - Eating [RC] 0800,1200,1700,2100 Initiate Hypoglycemia Protocol [RC] .protocol 12/16/23 15:00 Sodium Chloride 0.9% [Normal Saline 0.9%] 1,000 ml IV 100 mls/hr 12/16/23 Dinner DIET [Carb-controlled Diet] [DIET] 12/16/23 17:00 Sodium Chloride Flush 0.9% [Normal Saline Flush 0.9%] 10 ml IVP 0100,0900,1700 12/16/23 17:11 Zolpidem [Ambien] 5 mg PO QPM PRN 12/16/23 17:20 Code Status [OTHERS] Routine 12/16/23 21:00 Gabapentin [Neurontin] 600 mg PO BID Insulin Glargine-Yfgn [Semglee] 30 unit SUBQ QPM Insulin Lispro [Humalog Kwikpen U-100] 3 - 11 unit SUBQ 0800,1200,1700,2100 12/17/23 04:43 HEMOGLOBIN A1c% [CHEM] DAILYLAB 12/17/23 09:00 Enoxaparin [Lovenox] 40 mg SUBQ DAILY amLODIPine [Norvasc] 5 mg PO DAILY cefTRIAXone [Rocephin] 1 gm Sodium Chloride 0.9% Minibag [Normal Saline 0.9% Minibag] 100 ml IV DAILY 12/17/23 17:09 Losartan [Cozaar] 100 mg PO DAILY 12/18/23 05:00 BMP - BASIC METABOLIC PANEL [CHEM] DAILYLAB CBC [CBC - COMP BLD CT W/AUTO DIFF] [HEME] DAILYLAB 12/19/23 05:00 BMP - BASIC METABOLIC PANEL [CHEM] DAILYLAB CBC [CBC - COMP BLD CT W/AUTO DIFF] [HEME] DAILYLAB 12/20/23 05:00 BMP - BASIC METABOLIC PANEL [CHEM] DAILYLAB CBC [CBC - COMP BLD CT W/AUTO DIFF] [HEME] DAILYLAB 12/21/23 05:00 BMP - BASIC METABOLIC PANEL [CHEM] DAILYLAB CBC [CBC - COMP BLD CT W/AUTO DIFF] [HEME] DAILYLAB Plan Discussed with:: Patient Time Spent: 15-30 minutes Additional Planning Notes: if continue improving, may be discharged to home in 1-2 days Subjective - Subjective Patient Reports: Feeling Better (chest pain is better, slept good) Objective Vital Signs: Vital Signs - 24 hr 12/16/23 12/16/23 12/16/23 12:43 13:13 15:07 Temperature 36.0 C L Heart Rate 64 68 75 Heart Rate [ Brachial] Respiratory 21 20 14 Rate Blood Pressure 126/71 117/64 159/74 H Blood Pressure [Right Brachial artery] O2 Saturation 94 97 97 12/16/23 12/17/23 12/17/23 16:00 00:00 07:35 Temperature 36.4 C L 37.0 C 36.6 C Heart Rate Heart Rate [ 74 73 Brachial] Respiratory 20 20 18 Rate Blood Pressure Blood Pressure 159/70 H 137/67 H 151/73 H [Right Brachial artery] O2 Saturation 95 96 97 Oxygen O2 Source Room air I&O (Last 24 Hrs): Intake and Output Totals x24h 12/15/23 12/16/23 12/17/23 23:59 23:59 23:59 Intake Total 3930 1000 Output Total 300 Balance 3630 1000 General: Alert, Oriented x3 HEENT: PERRLA, EOMI Neck: Supple Neuro: Alert, Non Focal Cardiovascular: Regular rate Respiratory: No respiratory distress, Breath sounds nml Abdomen: Normal bowel sounds, Soft Extremities: No clubbing, No edema - Results Results: Laboratory Results WBC 8.8 x10^3/uL (4.8-10.8) 12/17/23 04:43 RBC 3.27 10^6/uL (4.70-6.10) L 12/17/23 04:43 Hgb 10.9 g/dL (14.0-18.0) L 12/17/23 04:43 Hct 30.4 % (42.0-52.0) L 12/17/23 04:43 MCV 93.0 fL (80.0-94.0) 12/17/23 04:43 MCH 33.3 pg (27.0-31.0) H 12/17/23 04:43 MCHC 35.9 g/dL (32.0-36.0) 12/17/23 04:43 RDW 11.5 % (12.0-15.0) L 12/17/23 04:43 Plt Count 247 10^3/uL (130-450) 12/17/23 04:43 MPV 9.5 fL (7.4-11.4) 12/17/23 04:43 Neut # (Auto) 6.1 10^3/uL (1.5-6.6) 12/17/23 04:43 Lymph # (Auto) 1.1 10^3/uL (1.5-3.5) L 12/17/23 04:43 [place] # (Auto) 1.4 10^3/uL (0.0-1.0) H 12/17/23 04:43 Eos # (Auto) 0.1 10^3/uL (0.0-0.7) 12/17/23 04:43 Baso # (Auto) 0.0 10^3/uL (0.0-0.1) 12/17/23 04:43 Absolute Nucleated RBC 0.00 x10^3/uL 12/17/23 04:43 Band Neuts % (Manual) Not Reportable 12/16/23 13:20 Abnorm Lymph % (Manual) Not Reportable 12/16/23 13:20 Nucleated RBC % 0.0 /100WBC 12/17/23 04:43 Neutrophils # (Manual) Not Reportable 12/16/23 13:20 Lymphocytes # (Manual) Not Reportable 12/16/23 13:20 Monocytes # (Manual) Not Reportable 12/16/23 13:20 Eosinophils # (Manual) Not Reportable 12/16/23 13:20 Basophils # (Manual) Not Reportable 12/16/23 13:20 Differential Comment MANUAL=AUTO DIFF 12/16/23 13:20 Manual Slide Review Indicated 12/16/23 13:20 WBC Morphology NORMAL APPEARANCE (NORMAL) 12/16/23 13:20 Platelet Estimate NORMAL (130-450,000) (NORMAL) 12/16/23 13:20 Platelet Morphology NORMAL APPEARANCE (NORMAL) 12/16/23 13:20 RBC Morph Micro Appear NORMAL APPEARANCE (NORMAL) 12/16/23 13:20 VBG pH 7.207 (7.31-7.41) L 12/16/23 14:14 VBG pCO2 32.5 mmHg (41-51) L 12/16/23 14:14 VBG pO2 66.3 mmHg (25-47) H 12/16/23 14:14 VBG HCO3 12.6 mmol/L (23-28) L 12/16/23 14:14 VBG Total CO2 13.6 mmol/L (24-29) L 12/16/23 14:14 VBG O2 Saturation 92.5 % (60-80) H 12/16/23 14:14 VBG Base Excess -14.1 mmol/L (-2 - +2) L 12/16/23 14:14 Sodium 128 mmol/L (135-145) L 12/17/23 04:43 Potassium 4.5 mmol/L (3.5-4.5) 12/17/23 04:43 Chloride 101 mmol/L (101-111) 12/17/23 04:43 Carbon Dioxide 21 mmol/L (21-32) 12/17/23 04:43 Anion Gap 6.0 (6-13) 12/17/23 04:43 BUN 26 mg/dL (6-20) H 12/17/23 04:43 Creatinine 0.7 mg/dL (0.6-1.3) 12/17/23 04:43 Estimated GFR (MDRD) 115 (>89) 12/17/23 04:43 Glucose 342 mg/dL (74-104) H 12/17/23 04:43 POC Whole Bld Glucose 279 mg/dL (70 - 100) H 12/17/23 07:30 Calcium 7.9 mg/dL (8.5-10.3) L 12/17/23 04:43 Magnesium 2.0 mg/dL (1.7-2.3) 12/16/23 13:20 Total Bilirubin 0.3 mg/dL (0.2-1.0) 12/16/23 13:20 AST 6 IU/L (10-42) L 12/16/23 13:20 ALT 7 IU/L (10-60) L 12/16/23 13:20 Alkaline Phosphatase 68 IU/L (42-121) 12/16/23 13:20 Troponin I High Sens 4.6 ng/L (2.3-19.7) 12/17/23 04:43 C-Reactive Protein 11.0 mg/dL (<0.5) H 12/17/23 04:43 Total Protein 6.2 g/dL (6.4-8.9) L 12/16/23 13:20 Albumin 2.9 g/dL (3.2-5.5) L 12/16/23 13:20 Globulin 3.3 g/dL (2.1-4.2) 12/16/23 13:20 Albumin/Globulin Ratio 0.9 (1.0-2.2) L 12/16/23 13:20 Triglycerides 135 mg/dL (48-352) 12/17/23 04:43 Cholesterol 150 mg/dL (-200) 12/17/23 04:43 LDL Cholesterol, Calc 92 mg/dL (-129) 12/17/23 04:43 VLDL Cholesterol 27 mg/dL 12/17/23 04:43 HDL Cholesterol 31 mg/dL (60-) L 12/17/23 04:43 LDL/HDL Ratio 3.0 (<3.6) 12/17/23 04:43 Cholesterol/HDL Ratio 4.8 (<5.0) 12/17/23 04:43 Lipase < 10 U/L (11-82) L 12/16/23 13:20 Serum Ketones SMALL (NEGATIVE) H 12/16/23 13:20 - Procedures Procedures: Procedures DETACHMENT AT LEFT 2ND TOE, COMPLETE, OPEN APPROACH (03/11/16) DETACHMENT AT LEFT 4TH TOE, COMPLETE, OPEN APPROACH (02/07/21) DETACHMENT AT LEFT 5TH TOE, COMPLETE, OPEN APPROACH (04/30/17) DETACHMENT AT RIGHT 1ST TOE, HIGH, OPEN APPROACH (10/20/16) DETACHMENT AT RIGHT 5TH TOE, COMPLETE, OPEN APPROACH (06/05/18) EXCIS DEBRIDE OF WOUND, INFECT, OR BURN (02/19/15) EXCISION OF RIGHT METATARSAL, OPEN APPROACH (06/05/18) RESECTION OF LEFT METATARSAL, OPEN APPROACH (01/05/19) VENOUS CATHETERIZATION NEC (02/19/15) Sepsis Event Note (H) - Evaluation Current Stage of Sepsis: Ruled out ABX Reporting Has patient been on IV antibiotics over the past 48 hours?: Yes
[2023-12-17] MEDS: cefTRIAXone 1 GM in SODIUM CHLORIDE 0.9% MINIBAG 100 ML IV SCH (08:35)
[2023-12-17] MEDS: ENOXAPARIN 40 MG/0.4 ML SYRINGE SUBQ SCH (08:35)
[2023-12-17] MEDS: amLODIPine 5 MG TABLET PO SCH (08:36)
[2023-12-17] MEDS ORDERED: amLODIPine 5 MG TABLET PO SCH (09:00)
--- NOTE | 2023-12-17 11:40 | PHARMACY PROGRESS NOTE ---
- Best Possible Medication History Admit Date and Time: 12/16/23 1431 Processed by: Pharmacy Medications reviewed in ED?: Yes Medication History completed: Yes Patient Interview: Pt refused Secondary Source(s): Insurance records (PATIENT IRRITABLE WITH MED HX INTERVIEW. ONLY CONFIRMED LANTUS, AMLODIPINE, AND METFORMIN.) As the person ultimately responsible for medication therapy, providers are able to order a medication from an existing home medication list in [facility] via the "Reconcile Routine" prior to Confirmation of that medication by personal support worker. Such practice is discouraged except when the physician, in their clinical judgment, deems that a medical need exists for a medication without regard to previous use.
[2023-12-17] MEDS: MULTIVITAMIN W/MINERALS TABLET PO SCH (11:51)
[2023-12-17] MEDS: CALCIUM CARBONATE CHEW 500 MG TABLET PO SCH (11:51)
[2023-12-17 12:57] LABS: ESTIMATED AVERAGE GLUCOSE 324 mg/dL (70-100); HEMOGLOBIN A1c% 12.9 % (4.27-6.07)
[2023-12-17] MEDS: LOSARTAN 50 MG TABLET PO SCH (17:04)
[2023-12-17] MEDS: INSULIN GLARGINE-YFGN 300 UNIT/3 ML PEN SUBQ SCH (20:53)
[2023-12-18 06:03] LABS: BASOPHILS % (AUTO) 0.2 %; EOSINOPHILS % (AUTO) 0.7 %; HCT - HEMATOCRIT 33.3 % (42.0-52.0); HGB - HEMOGLOBIN 11.8 g/dL (14.0-18.0); LYMPHOCYTES % (AUTO) 8.5 %; MEAN CORPUSCULAR HEMOGLOBIN 32.4 pg (27.0-31.0); MEAN CORPUSCULAR HGB CONC 35.4 g/dL (32.0-36.0); MEAN CORPUSCULAR VOLUME 91.5 fL (80.0-94.0); MEAN PLATELET VOLUME 9.8 fL (7.4-11.4); MONOCYTES % (AUTO) 19.8 %; NEUTROPHILS % (AUTO) 70.1 %; PLT - PLATELET COUNT 311 10^3/uL (130-450); RED BLOOD COUNT 3.64 10^6/uL (4.70-6.10); RED CELL DISTRIBUTION WIDTH 11.6 % (12.0-15.0); WHITE BLOOD COUNT 12.1 x10^3/uL (4.8-10.8)
[2023-12-18 06:09] LABS: ABNORMAL LYMPHS % (MANUAL) 0 %
[2023-12-18 06:18] LABS: CALCIUM 7.8 mg/dL (8.5-10.3); CREATININE 0.6 mg/dL (0.6-1.3)
[2023-12-18 06:27] LABS: BAND NEUTROPHILS % (MANUAL) 13 %; DIFFERENTIAL COMMENT MANUAL DIFFERENTIAL; LYMPHOCYTES # (MANUAL) 1.3 10^3/uL (1.5-3.5); LYMPHOCYTES % (MANUAL) 8 %; MONOCYTES # (MANUAL) 1.8 10^3/uL (0.0-1.0); REACTIVE LYMPHS % (MANUAL) 3 %
--- NOTE | 2023-12-18 08:22 | PROVIDER PROGRESS NOTE ---
Assessment/Plan - Problem List (1) Secondary DM with DKA, uncontrolled Assessment/Plan: resolved Poorly controlled DM, with A1C 12.7 -optimize his blood sugar control -Nutrition consult for Diet and insulin use (2) Leukocytosis Qualifiers: Leukocytosis type: bandemia Qualified Code(s): D72.825 - Bandemia Assessment/Plan: worsened with 10% bands still has 9/10 chest pain -Repeat CXR: improving right lung opacity, trace left pleural effusion -continue ceftrioxone (4) Diabetic neuropathy Qualifiers: Diabetes mellitus type: type 2 Assessment/Plan: continue with garbapentin (5) Peripheral neuropathy Qualifiers: Peripheral neuropathy type: polyneuropathy associated with underlying disease Qualified Code(s): G63 - Polyneuropathy in diseases classified elsewhere Assessment/Plan: secondary to uncontrolled DM Discussed with patient for medical compliance, to improve overall health condition (6) HTN (hypertension) Qualifiers: Assessment/Plan: continue current regimen - Current Meds Current Meds: Current Medications Generic Name Dose Route Start Last Admin Trade Name Freq PRN Reason Stop Dose Admin Acetaminophen 650 mg 12/16/23 14:31 12/16/23 16:26 Acetaminophen 325 Mg Tablet PO 650 mg Q4HR PRN Administration Pain 1 to 4, or Fever Amlodipine Besylate 10 mg 12/17/23 09:00 12/17/23 08:36 Amlodipine 5 Mg Tablet PO 10 mg DAILY LILLIAN Administration Calcium Carbonate/Glycine 500 mg 12/17/23 10:00 12/17/23 20:56 Calcium Carbonate Chew 500 Mg Tablet PO Not Given BID LILLIAN Enoxaparin Sodium 40 mg 12/17/23 09:00 12/17/23 08:42 Enoxaparin 40 Mg/0.4 Ml Syringe SUBQ Not Given DAILY LILLIAN Gabapentin 600 mg 12/16/23 21:00 12/17/23 20:52 Gabapentin 300 Mg Capsule PO 600 mg BID LILLIAN Administration Ceftriaxone Sodium 1 gm/ 100 mls @ 200 mls/hr 12/17/23 09:00 12/17/23 09:05 Sodium Chloride IV Infused DAILY LILLIAN Infusion Insulin Glargine-yfgn 40 unit 12/17/23 21:00 12/17/23 20:53 Insulin Glargine-Yfgn 300 Unit/3 Ml Pen SUBQ 40 unit QPM LILLIAN Administration Insulin Human Lispro 3 - 11 unit 12/16/23 21:00 12/17/23 20:53 Insulin Lispro 300 Unit/3 Ml Pen SUBQ 9 unit 0800,1200,1700,2100 LILLIAN Administration Protocol Losartan Potassium 100 mg 12/17/23 17:09 12/17/23 17:04 Losartan 50 Mg Tablet PO 100 mg DAILY LILLIAN Administration Multivitamins/Minerals 1 tab 12/17/23 09:00 12/17/23 11:51 Multivitamin W/Minerals Tablet PO 1 tab DAILYWM LILLIAN Administration Ondansetron HCl 4 mg 12/16/23 14:31 12/16/23 21:29 Ondansetron 4 Mg/2 Ml Vial IVP 4 mg Q6HR PRN Administration Nausea / Vomiting Oxycodone HCl 5 mg 12/16/23 14:31 12/18/23 04:14 Oxycodone 5 Mg Tablet PO 5 mg Q4HR PRN Administration Pain 5 to 7 Sodium Chloride 10 ml 12/16/23 17:00 12/18/23 03:16 Sodium Chloride Flush 0.9% 10 Ml Syringe IVP 10 ml 0100,0900,1700 LILLIAN Administration Zolpidem Tartrate 5 mg 12/16/23 17:11 12/16/23 22:30 Zolpidem 5 Mg Tablet PO 5 mg QPM PRN Administration Insomnia - Lab Result Fish Bone Diagrams: 12/18/23 05:31 12/18/23 05:31 - Additional Planning Condition/Complexity: Improved My Orders: My Active Orders 12/17/23 09:00 Enoxaparin [Lovenox] 40 mg SUBQ DAILY Multivitamin W/Minerals [Theragran M] 1 tab PO DAILYWM amLODIPine [Norvasc] 10 mg PO DAILY cefTRIAXone [Rocephin] 1 gm Sodium Chloride 0.9% Minibag [Normal Saline 0.9% Minibag] 100 ml IV DAILY 12/17/23 10:00 Calcium Carbonate [Tums] 500 mg PO BID 12/17/23 Lunch Carb-controlled Diet [DIET] 12/17/23 17:09 Losartan [Cozaar] 100 mg PO DAILY 12/17/23 21:00 Insulin Glargine-Yfgn [Semglee] 40 unit SUBQ QPM 12/19/23 05:00 BMP - BASIC METABOLIC PANEL [CHEM] DAILYLAB CBC [CBC - COMP BLD CT W/AUTO DIFF] [HEME] DAILYLAB 12/20/23 05:00 BMP - BASIC METABOLIC PANEL [CHEM] DAILYLAB CBC [CBC - COMP BLD CT W/AUTO DIFF] [HEME] DAILYLAB 12/21/23 05:00 BMP - BASIC METABOLIC PANEL [CHEM] DAILYLAB CBC [CBC - COMP BLD CT W/AUTO DIFF] [HEME] DAILYLAB Time Spent: 31-60 minutes Additional Planning Notes: elevated WBC, needs to be monitored, iv antibiotic is indicated If improving, may be discharged to home in 1-2 days Subjective - Subjective Patient Reports: Feeling Better (Chest pain is slightly better, but still does not feel 100% right. Appetite is fair) Objective Vital Signs: Vital Signs - 24 hr 12/17/23 12/18/23 16:00 04:15 Temperature 36.7 C 37.2 C Heart Rate [ 87 95 Brachial] Respiratory 20 18 Rate Blood Pressure 134/79 H [Left Brachial artery] Blood Pressure 135/77 H [Right Brachial artery] O2 Saturation 94 92 Oxygen O2 Source Room air I&O (Last 24 Hrs): Intake and Output Totals x24h 12/16/23 12/17/23 12/18/23 23:59 23:59 23:59 Intake Total 3930 3453 480 Output Total 300 400 Balance 3630 3053 480 General: Alert, Oriented x3 HEENT: PERRLA, EOMI Neck: Supple, No JVD Neuro: Alert, Non Focal Cardiovascular: Regular rate Respiratory: No respiratory distress Abdomen: No tenderness Extremities: No clubbing, Other (S/p TMA) - Results Results: Laboratory Results WBC 12.1 x10^3/uL (4.8-10.8) H 12/18/23 05:31 RBC 3.64 10^6/uL (4.70-6.10) L 12/18/23 05:31 Hgb 11.8 g/dL (14.0-18.0) L 12/18/23 05:31 Hct 33.3 % (42.0-52.0) L 12/18/23 05:31 MCV 91.5 fL (80.0-94.0) 12/18/23 05:31 MCH 32.4 pg (27.0-31.0) H 12/18/23 05:31 MCHC 35.4 g/dL (32.0-36.0) 12/18/23 05:31 RDW 11.6 % (12.0-15.0) L 12/18/23 05:31 Plt Count 311 10^3/uL (130-450) 12/18/23 05:31 MPV 9.8 fL (7.4-11.4) 12/18/23 05:31 Neut # (Auto) Not Reportable 12/18/23 05:31 Lymph # (Auto) Not Reportable 12/18/23 05:31 [place] # (Auto) Not Reportable 12/18/23 05:31 Eos # (Auto) Not Reportable 12/18/23 05:31 Baso # (Auto) Not Reportable 12/18/23 05:31 Absolute Nucleated RBC Not Reportable 12/18/23 05:31 Total Counted 100 12/18/23 05:31 Band Neuts % (Manual) 13 % (0-10) H 12/18/23 05:31 Reactive Lymphs % (Man) 3 % 12/18/23 05:31 Abnorm Lymph % (Manual) 0 % 12/18/23 05:31 Nucleated RBC % Not Reportable 12/18/23 05:31 Neutrophils # (Manual) 9.0 10^3/uL (1.5-6.6) H 12/18/23 05:31 Lymphocytes # (Manual) 1.3 10^3/uL (1.5-3.5) L 12/18/23 05:31 Monocytes # (Manual) 1.8 10^3/uL (0.0-1.0) H 12/18/23 05:31 Eosinophils # (Manual) 0.0 10^3/uL (0-0.7) 12/18/23 05:31 Basophils # (Manual) 0.0 10^3/uL (0-0.1) 12/18/23 05:31 Differential Comment MANUAL DIFFERENTIAL 12/18/23 05:31 Manual Slide Review Indicated 12/16/23 13:20 WBC Morphology NORMAL APPEARANCE (NORMAL) 12/16/23 13:20 Platelet Estimate NORMAL (130-450,000) (NORMAL) 12/16/23 13:20 Platelet Morphology NORMAL APPEARANCE (NORMAL) 12/16/23 13:20 RBC Morph Micro Appear NORMAL APPEARANCE (NORMAL) 12/16/23 13:20 VBG pH 7.207 (7.31-7.41) L 12/16/23 14:14 VBG pCO2 32.5 mmHg (41-51) L 12/16/23 14:14 VBG pO2 66.3 mmHg (25-47) H 12/16/23 14:14 VBG HCO3 12.6 mmol/L (23-28) L 12/16/23 14:14 VBG Total CO2 13.6 mmol/L (24-29) L 12/16/23 14:14 VBG O2 Saturation 92.5 % (60-80) H 12/16/23 14:14 VBG Base Excess -14.1 mmol/L (-2 - +2) L 12/16/23 14:14 Sodium 129 mmol/L (135-145) L 12/18/23 05:31 Potassium 4.0 mmol/L (3.5-4.5) 12/18/23 05:31 Chloride 100 mmol/L (101-111) L 12/18/23 05:31 Carbon Dioxide 24 mmol/L (21-32) 12/18/23 05:31 Anion Gap 5.0 (6-13) L 12/18/23 05:31 BUN 22 mg/dL (6-20) H 12/18/23 05:31 Creatinine 0.6 mg/dL (0.6-1.3) 12/18/23 05:31 Estimated GFR (MDRD) 137 (>89) 12/18/23 05:31 Glucose 278 mg/dL (74-104) H 12/18/23 05:31 POC Whole Bld Glucose 255 mg/dL (70 - 100) H 12/18/23 07:54 Estimat Average Glucose 324 mg/dL (70-100) H 12/17/23 04:43 Hemoglobin A1c % 12.9 % (4.27-6.07) H 12/17/23 04:43 Calcium 7.8 mg/dL (8.5-10.3) L 12/18/23 05:31 Magnesium 2.0 mg/dL (1.7-2.3) 12/16/23 13:20 Total Bilirubin 0.3 mg/dL (0.2-1.0) 12/16/23 13:20 AST 6 IU/L (10-42) L 12/16/23 13:20 ALT 7 IU/L (10-60) L 12/16/23 13:20 Alkaline Phosphatase 68 IU/L (42-121) 12/16/23 13:20 Troponin I High Sens 4.6 ng/L (2.3-19.7) 12/17/23 04:43 C-Reactive Protein 11.0 mg/dL (<0.5) H 12/17/23 04:43 Total Protein 6.2 g/dL (6.4-8.9) L 12/16/23 13:20 Albumin 2.9 g/dL (3.2-5.5) L 12/16/23 13:20 Globulin 3.3 g/dL (2.1-4.2) 12/16/23 13:20 Albumin/Globulin Ratio 0.9 (1.0-2.2) L 12/16/23 13:20 Triglycerides 135 mg/dL (48-352) 12/17/23 04:43 Cholesterol 150 mg/dL (-200) 12/17/23 04:43 LDL Cholesterol, Calc 92 mg/dL (-129) 12/17/23 04:43 VLDL Cholesterol 27 mg/dL 12/17/23 04:43 HDL Cholesterol 31 mg/dL (60-) L 12/17/23 04:43 LDL/HDL Ratio 3.0 (<3.6) 12/17/23 04:43 Cholesterol/HDL Ratio 4.8 (<5.0) 12/17/23 04:43 Lipase < 10 U/L (11-82) L 12/16/23 13:20 Vitamin B12 713 pg/mL (180-914) 12/17/23 04:43 Vitamin D 25-Hydroxy 10.3 ng/mL (30.0-100.0) L 12/16/23 13:20 Serum Ketones SMALL (NEGATIVE) H 12/16/23 13:20 - Procedures Procedures: Procedures DETACHMENT AT LEFT 2ND TOE, COMPLETE, OPEN APPROACH (03/11/16) DETACHMENT AT LEFT 4TH TOE, COMPLETE, OPEN APPROACH (02/07/21) DETACHMENT AT LEFT 5TH TOE, COMPLETE, OPEN APPROACH (04/30/17) DETACHMENT AT RIGHT 1ST TOE, HIGH, OPEN APPROACH (10/20/16) DETACHMENT AT RIGHT 5TH TOE, COMPLETE, OPEN APPROACH (06/05/18) EXCIS DEBRIDE OF WOUND, INFECT, OR BURN (02/19/15) EXCISION OF RIGHT METATARSAL, OPEN APPROACH (06/05/18) RESECTION OF LEFT METATARSAL, OPEN APPROACH (01/05/19) VENOUS CATHETERIZATION NEC (02/19/15) Sepsis Event Note (H) - Evaluation Current Stage of Sepsis: Ruled out ABX Reporting Has patient been on IV antibiotics over the past 48 hours?: Yes
--- NOTE | 2023-12-18 11:26 | XRAY Report ---
PROCEDURE: Chest 2V INDICATIONS: worsened leukocytosis, pesistent chest pain TECHNIQUE: 2 views of the chest were acquired. COMPARISON: Chest x-ray 12/16/2023 FINDINGS: Surgical changes and devices: None. Lungs and pleura: Persistent patchy right hemithorax opacities appearing improved, particularly with in the bases compared to prior exam. Interval development of small left basilar opacities. Mediastinum: Mediastinal contours appear normal. Heart size is normal. Bones and chest wall: No suspicious bony lesions. Overlying soft tissues appear unremarkable. IMPRESSION: Persistent although improvement of right basilar opacities. Small focus of developing opacity in the left base possibly pneumonia or atelectasis. Reviewed by: Tootie Alejandra MD on 12/18/2023 11:24 AM PST Approved by: Tootie Alejandra MD on 12/18/2023 11:24 AM PST Station ID: [id number]
[2023-12-18] MEDS: ERGOCALCIFEROL 50,000 UNIT CAPSULE PO ONE (11:53)
[2023-12-19 07:13] LABS: CREATININE 0.7 mg/dL (0.6-1.3); CRP - C-REACTIVE PROTEIN 28.1 mg/dL (<0.5); POTASSIUM 4.2 mmol/L (3.5-4.5)
--- NOTE | 2023-12-19 08:20 | PROVIDER PROGRESS NOTE ---
Assessment/Plan - Problem List (1) Secondary DM with DKA, uncontrolled Assessment/Plan: DKA resolved Hyperglycemia, no change -increase Insulin dose -optimize insulin dose (3) Diabetic neuropathy Qualifiers: Diabetes mellitus type: type 2 Assessment/Plan: continue with gabapentin (4) Peripheral neuropathy Qualifiers: Peripheral neuropathy type: polyneuropathy associated with underlying disease Qualified Code(s): G63 - Polyneuropathy in diseases classified elsewhere Assessment/Plan: continue with garbapentin (5) HTN (hypertension) Qualifiers: Assessment/Plan: improved continue with current regimen: amlodipin, losartan (6) Pneumonia Qualifiers: Pneumonia type: due to unspecified organism Laterality: right Lung location: lower lobe of lung Qualified Code(s): J18.9 - Pneumonia, unspecified organism Assessment/Plan: still have pleuritic pain Leukocytosis slightly improving CRP trends up to 28 (from 14 yesterday) -continue with ceftriaxone - Current Meds Current Meds: Current Medications Generic Name Dose Route Start Last Admin Trade Name Freq PRN Reason Stop Dose Admin Acetaminophen 650 mg 12/16/23 14:31 12/19/23 00:23 Acetaminophen 325 Mg Tablet PO 650 mg Q4HR PRN Administration Pain 1 to 4, or Fever Amlodipine Besylate 10 mg 12/17/23 09:00 12/18/23 08:25 Amlodipine 5 Mg Tablet PO 10 mg DAILY LILLIAN Administration Calcium Carbonate/Glycine 500 mg 12/17/23 10:00 12/18/23 21:21 Calcium Carbonate Chew 500 Mg Tablet PO Not Given BID LILLIAN Enoxaparin Sodium 40 mg 12/17/23 09:00 12/18/23 08:27 Enoxaparin 40 Mg/0.4 Ml Syringe SUBQ Not Given DAILY LILLIAN Gabapentin 600 mg 12/16/23 21:00 12/18/23 21:19 Gabapentin 300 Mg Capsule PO 600 mg BID LILLIAN Administration Ceftriaxone Sodium 1 gm/ 100 mls @ 200 mls/hr 12/17/23 09:00 12/18/23 10:53 Sodium Chloride IV Infused DAILY LILLIAN Infusion Insulin Glargine-yfgn 40 unit 12/17/23 21:00 12/18/23 21:36 Insulin Glargine-Yfgn 300 Unit/3 Ml Pen SUBQ 40 unit QPM LILLIAN Administration Insulin Human Lispro 3 - 11 unit 12/16/23 21:00 12/18/23 21:35 Insulin Lispro 300 Unit/3 Ml Pen SUBQ 11 unit 0800,1200,1700,2100 LILLIAN Administration Protocol Losartan Potassium 100 mg 12/17/23 17:09 12/18/23 08:26 Losartan 50 Mg Tablet PO 100 mg DAILY LILLIAN Administration Multivitamins/Minerals 1 tab 12/17/23 09:00 12/18/23 08:26 Multivitamin W/Minerals Tablet PO 1 tab DAILYWM LILLIAN Administration Ondansetron HCl 4 mg 12/16/23 14:31 12/16/23 21:29 Ondansetron 4 Mg/2 Ml Vial IVP 4 mg Q6HR PRN Administration Nausea / Vomiting Oxycodone HCl 5 mg 12/16/23 14:31 12/19/23 01:15 Oxycodone 5 Mg Tablet PO 5 mg Q4HR PRN Administration Pain 5 to 7 Sodium Chloride 10 ml 12/16/23 17:00 12/19/23 03:27 Sodium Chloride Flush 0.9% 10 Ml Syringe IVP 10 ml 0100,0900,1700 LILLIAN Administration Zolpidem Tartrate 5 mg 12/16/23 17:11 12/16/23 22:30 Zolpidem 5 Mg Tablet PO 5 mg QPM PRN Administration Insomnia - Lab Result Lab results reviewed: Yes Fish Bone Diagrams: 12/19/23 06:02 12/19/23 06:02 - Diagnostic Imaging Results Diagnostic Imaging Results: Final report reviewed - Additional Planning Condition/Complexity: Improved My Orders: My Active Orders 12/19/23 06:02 CBC [CBC - COMP BLD CT W/AUTO DIFF] [HEME] DAILYLAB 12/19/23 09:00 Insulin Lispro [Humalog Kwikpen U-100] See Dose Instructions SUBQ 0800,1200,1700,2100 12/19/23 12:00 Insulin Lispro [Humalog Kwikpen U-100] 10 unit SUBQ TIDWM 12/19/23 21:00 Insulin Glargine-Yfgn [Semglee] 46 unit SUBQ QPM 12/20/23 05:00 BMP - BASIC METABOLIC PANEL [CHEM] DAILYLAB CBC [CBC - COMP BLD CT W/AUTO DIFF] [HEME] DAILYLAB 12/21/23 05:00 BMP - BASIC METABOLIC PANEL [CHEM] DAILYLAB CBC [CBC - COMP BLD CT W/AUTO DIFF] [HEME] DAILYLAB Plan Discussed with:: Patient Time Spent: 31-60 minutes Additional Planning Notes: continue iv antibiotic, continue optimize insulin dose anticipate discharge to home in 1-2 days Subjective - Subjective Patient Reports: Chest Pain, Shortness of Breath (SOB on exertion) Objective Vital Signs: Vital Signs - 24 hr 12/18/23 12/19/23 12/19/23 16:00 00:00 08:00 Temperature 37.0 C 37.1 C 37.2 C Heart Rate [ 110 H 102 H 95 Brachial] Respiratory 20 20 12 Rate Blood Pressure 160/93 H [Left Brachial artery] Blood Pressure 122/73 140/80 H [Right Brachial artery] O2 Saturation 94 91 L 93 Oxygen O2 Source Room air I&O (Last 24 Hrs): Intake and Output Totals x24h 12/17/23 12/18/23 12/19/23 23:59 23:59 23:59 Intake Total 3453 2702 480 Output Total 400 Balance 3053 2702 480 General: Alert, Oriented x3, Mild distress HEENT: PERRLA, EOMI Neck: No JVD Neuro: Alert, Non Focal Respiratory: Rales (right mid, lower lobe) Extremities: No clubbing, No edema - Results Results: Laboratory Results WBC 12.1 x10^3/uL (4.8-10.8) H 12/18/23 05:31 RBC 3.64 10^6/uL (4.70-6.10) L 12/18/23 05:31 Hgb 11.8 g/dL (14.0-18.0) L 12/18/23 05:31 Hct 33.3 % (42.0-52.0) L 12/18/23 05:31 MCV 91.5 fL (80.0-94.0) 12/18/23 05:31 MCH 32.4 pg (27.0-31.0) H 12/18/23 05:31 MCHC 35.4 g/dL (32.0-36.0) 12/18/23 05:31 RDW 11.6 % (12.0-15.0) L 12/18/23 05:31 Plt Count 311 10^3/uL (130-450) 12/18/23 05:31 MPV 9.8 fL (7.4-11.4) 12/18/23 05:31 Neut # (Auto) Not Reportable 12/18/23 05:31 Lymph # (Auto) Not Reportable 12/18/23 05:31 [place] # (Auto) Not Reportable 12/18/23 05:31 Eos # (Auto) Not Reportable 12/18/23 05:31 Baso # (Auto) Not Reportable 12/18/23 05:31 Absolute Nucleated RBC Not Reportable 12/18/23 05:31 Total Counted 100 12/18/23 05:31 Band Neuts % (Manual) 13 % (0-10) H 12/18/23 05:31 Reactive Lymphs % (Man) 3 % 12/18/23 05:31 Abnorm Lymph % (Manual) 0 % 12/18/23 05:31 Nucleated RBC % Not Reportable 12/18/23 05:31 Neutrophils # (Manual) 9.0 10^3/uL (1.5-6.6) H 12/18/23 05:31 Lymphocytes # (Manual) 1.3 10^3/uL (1.5-3.5) L 12/18/23 05:31 Monocytes # (Manual) 1.8 10^3/uL (0.0-1.0) H 12/18/23 05:31 Eosinophils # (Manual) 0.0 10^3/uL (0-0.7) 12/18/23 05:31 Basophils # (Manual) 0.0 10^3/uL (0-0.1) 12/18/23 05:31 Differential Comment MANUAL DIFFERENTIAL 12/18/23 05:31 Manual Slide Review Indicated 12/16/23 13:20 WBC Morphology NORMAL APPEARANCE (NORMAL) 12/16/23 13:20 Platelet Estimate NORMAL (130-450,000) (NORMAL) 12/16/23 13:20 Platelet Morphology NORMAL APPEARANCE (NORMAL) 12/16/23 13:20 RBC Morph Micro Appear NORMAL APPEARANCE (NORMAL) 12/16/23 13:20 VBG pH 7.207 (7.31-7.41) L 12/16/23 14:14 VBG pCO2 32.5 mmHg (41-51) L 12/16/23 14:14 VBG pO2 66.3 mmHg (25-47) H 12/16/23 14:14 VBG HCO3 12.6 mmol/L (23-28) L 12/16/23 14:14 VBG Total CO2 13.6 mmol/L (24-29) L 12/16/23 14:14 VBG O2 Saturation 92.5 % (60-80) H 12/16/23 14:14 VBG Base Excess -14.1 mmol/L (-2 - +2) L 12/16/23 14:14 Sodium 129 mmol/L (135-145) L 12/19/23 06:02 Potassium 4.2 mmol/L (3.5-4.5) 12/19/23 06:02 Chloride 98 mmol/L (101-111) L 12/19/23 06:02 Carbon Dioxide 25 mmol/L (21-32) 12/19/23 06:02 Anion Gap 6.0 (6-13) 12/19/23 06:02 BUN 18 mg/dL (6-20) 12/19/23 06:02 Creatinine 0.7 mg/dL (0.6-1.3) 12/19/23 06:02 Estimated GFR (MDRD) 115 (>89) 12/19/23 06:02 Glucose 296 mg/dL (74-104) H 12/19/23 06:02 POC Whole Bld Glucose 278 mg/dL (70 - 100) H 12/19/23 08:04 Estimat Average Glucose 324 mg/dL (70-100) H 12/17/23 04:43 Hemoglobin A1c % 12.9 % (4.27-6.07) H 12/17/23 04:43 Calcium 8.0 mg/dL (8.5-10.3) L 12/19/23 06:02 Magnesium 2.0 mg/dL (1.7-2.3) 12/16/23 13:20 Total Bilirubin 0.3 mg/dL (0.2-1.0) 12/16/23 13:20 AST 6 IU/L (10-42) L 12/16/23 13:20 ALT 7 IU/L (10-60) L 12/16/23 13:20 Alkaline Phosphatase 68 IU/L (42-121) 12/16/23 13:20 Troponin I High Sens 4.6 ng/L (2.3-19.7) 12/17/23 04:43 C-Reactive Protein 28.1 mg/dL (<0.5) H 12/19/23 06:02 Total Protein 6.2 g/dL (6.4-8.9) L 12/16/23 13:20 Albumin 2.9 g/dL (3.2-5.5) L 12/16/23 13:20 Globulin 3.3 g/dL (2.1-4.2) 12/16/23 13:20 Albumin/Globulin Ratio 0.9 (1.0-2.2) L 12/16/23 13:20 Triglycerides 135 mg/dL (48-352) 12/17/23 04:43 Cholesterol 150 mg/dL (-200) 12/17/23 04:43 LDL Cholesterol, Calc 92 mg/dL (-129) 12/17/23 04:43 VLDL Cholesterol 27 mg/dL 12/17/23 04:43 HDL Cholesterol 31 mg/dL (60-) L 12/17/23 04:43 LDL/HDL Ratio 3.0 (<3.6) 12/17/23 04:43 Cholesterol/HDL Ratio 4.8 (<5.0) 12/17/23 04:43 Lipase < 10 U/L (11-82) L 12/16/23 13:20 Vitamin B12 713 pg/mL (180-914) 12/17/23 04:43 Vitamin D 25-Hydroxy 10.3 ng/mL (30.0-100.0) L 12/16/23 13:20 Serum Ketones SMALL (NEGATIVE) H 12/16/23 13:20 - Procedures Procedures: Procedures DETACHMENT AT LEFT 2ND TOE, COMPLETE, OPEN APPROACH (03/11/16) DETACHMENT AT LEFT 4TH TOE, COMPLETE, OPEN APPROACH (02/07/21) DETACHMENT AT LEFT 5TH TOE, COMPLETE, OPEN APPROACH (04/30/17) DETACHMENT AT RIGHT 1ST TOE, HIGH, OPEN APPROACH (10/20/16) DETACHMENT AT RIGHT 5TH TOE, COMPLETE, OPEN APPROACH (06/05/18) EXCIS DEBRIDE OF WOUND, INFECT, OR BURN (02/19/15) EXCISION OF RIGHT METATARSAL, OPEN APPROACH (06/05/18) RESECTION OF LEFT METATARSAL, OPEN APPROACH (01/05/19) VENOUS CATHETERIZATION NEC (02/19/15) Sepsis Event Note (H) - Evaluation Current Stage of Sepsis: Ruled out ABX Reporting Has patient been on IV antibiotics over the past 48 hours?: Yes
[2023-12-19] MEDS: INSULIN LISPRO 300 UNIT/3 ML PEN SUBQ SCH ×3 (08:25→17:12)
[2023-12-19 10:08] LABS: BASOPHILS # (AUTO) 0.1 10^3/uL (0.0-0.1); BASOPHILS % (AUTO) 0.4 %; EOSINOPHILS # (AUTO) 0.1 10^3/uL (0.0-0.7); HCT - HEMATOCRIT 34.7 % (42.0-52.0); HGB - HEMOGLOBIN 11.7 g/dL (14.0-18.0); LYMPHOCYTES # (AUTO) 1.1 10^3/uL (1.5-3.5); LYMPHOCYTES % (AUTO) 9.1 %; MEAN CORPUSCULAR HEMOGLOBIN 32.3 pg (27.0-31.0); MEAN CORPUSCULAR HGB CONC 33.7 g/dL (32.0-36.0); MEAN CORPUSCULAR VOLUME 95.9 fL (80.0-94.0); MEAN PLATELET VOLUME 10.7 fL (7.4-11.4); MONOCYTES # (AUTO) 1.8 10^3/uL (0.0-1.0); MONOCYTES % (AUTO) 14.6 %; NEUTROPHILS # (AUTO) 9.2 10^3/uL (1.5-6.6); NEUTROPHILS % (AUTO) 74.1 %; PLT - PLATELET COUNT 297 10^3/uL (130-450); RED BLOOD COUNT 3.62 10^6/uL (4.70-6.10); RED CELL DISTRIBUTION WIDTH 11.7 % (12.0-15.0); WHITE BLOOD COUNT 12.4 x10^3/uL (4.8-10.8)
[2023-12-19 10:13] LABS: SLIDE REVIEW? Indicated
[2023-12-19 10:31] LABS: RBC MORPHOLOGY (MULTIPLE) 1+ ANISOCYTOSIS (NORMAL)
[2023-12-19] MEDS: polyethylene glycoL 3350 17 GM PACKET PO SCH (10:41)
[2023-12-19] MEDS: INSULIN LISPRO 300 UNIT/3 ML PEN SUBQ ONE (11:54)
[2023-12-19] MEDS: IPRATROPIUM/ALBUTEROL 3 ML NEB INH STA (17:04)
[2023-12-19] MEDS: INSULIN GLARGINE-YFGN 300 UNIT/3 ML PEN SUBQ SCH (20:41)
[2023-12-20 05:25] LABS: BASOPHILS # (AUTO) 0.1 10^3/uL (0.0-0.1); BASOPHILS % (AUTO) 0.5 %; EOSINOPHILS # (AUTO) 0.2 10^3/uL (0.0-0.7); HCT - HEMATOCRIT 30.9 % (42.0-52.0); HGB - HEMOGLOBIN 10.4 g/dL (14.0-18.0); LYMPHOCYTES # (AUTO) 1.2 10^3/uL (1.5-3.5); MEAN CORPUSCULAR HEMOGLOBIN 31.7 pg (27.0-31.0); MEAN CORPUSCULAR HGB CONC 33.7 g/dL (32.0-36.0); MEAN CORPUSCULAR VOLUME 94.2 fL (80.0-94.0); MEAN PLATELET VOLUME 9.8 fL (7.4-11.4); MONOCYTES # (AUTO) 2.2 10^3/uL (0.0-1.0); MONOCYTES % (AUTO) 15.1 %; NEUTROPHILS # (AUTO) 10.7 10^3/uL (1.5-6.6); NEUTROPHILS % (AUTO) 74.4 %; PLT - PLATELET COUNT 310 10^3/uL (130-450); RED BLOOD COUNT 3.28 10^6/uL (4.70-6.10); RED CELL DISTRIBUTION WIDTH 11.7 % (12.0-15.0); WHITE BLOOD COUNT 14.4 x10^3/uL (4.8-10.8)
[2023-12-20 05:44] LABS: CREATININE 0.6 mg/dL (0.6-1.3); POTASSIUM 4.1 mmol/L (3.5-4.5)
[2023-12-20 06:24] LABS: SLIDE REVIEW? Indicated
[2023-12-20] MEDS: IPRATROPIUM/ALBUTEROL 3 ML NEB INH PRN (06:30)
[2023-12-20 07:36] LABS: PLATELET ESTIMATE, MANUAL NORMAL (130-450,000) (NORMAL); PLATELET MORPHOLOGY PLATELET CLUMPING (NORMAL); RBC MORPHOLOGY (MULTIPLE) NORMAL APPEARANCE (NORMAL)
--- NOTE | 2023-12-20 09:03 | PROVIDER PROGRESS NOTE ---
Assessment/Plan - Problem List (1) Secondary DM with DKA, uncontrolled Assessment/Plan: DKA resolved, stable Blood sugar improved to 140s Optimize insulin dose (2) Chest pain, pleuritic Assessment/Plan: Improving Chest pain secondary to right-sided pneumonia On ceftriaxone (3) Diabetic neuropathy Qualifiers: Diabetes mellitus type: type 2 Assessment/Plan: On gabapentin (4) Peripheral neuropathy Qualifiers: Peripheral neuropathy type: polyneuropathy associated with underlying disease Qualified Code(s): G63 - Polyneuropathy in diseases classified elsewhere Assessment/Plan: Unchanged (5) HTN (hypertension) Qualifiers: Assessment/Plan: Stable Continue current regimen (6) Pneumonia Qualifiers: Pneumonia type: due to unspecified organism Laterality: right Lung location: lower lobe of lung Qualified Code(s): J18.9 - Pneumonia, unspecified organism Assessment/Plan: Improving Continue ceftriaxone Plans for discharge to home tomorrow on oral antibiotic - Current Meds Current Meds: Current Medications Generic Name Dose Route Start Last Admin Trade Name Freq PRN Reason Stop Dose Admin Acetaminophen 650 mg 12/16/23 14:31 12/19/23 08:20 Acetaminophen 325 Mg Tablet PO 650 mg Q4HR PRN Administration Pain 1 to 4, or Fever Albuterol/Ipratropium 3 ml 12/19/23 10:52 12/20/23 06:30 Ipratropium/Albuterol 3 Ml Neb INH 3 ml RTQID PRN Administration Shortness of Air/Wheezing Amlodipine Besylate 10 mg 12/17/23 09:00 12/19/23 08:21 Amlodipine 5 Mg Tablet PO 10 mg DAILY LILLIAN Administration Calcium Carbonate/Glycine 500 mg 12/17/23 10:00 12/19/23 20:42 Calcium Carbonate Chew 500 Mg Tablet PO Not Given BID LILLIAN Enoxaparin Sodium 40 mg 12/17/23 09:00 12/19/23 08:23 Enoxaparin 40 Mg/0.4 Ml Syringe SUBQ Not Given DAILY LILLIAN Gabapentin 600 mg 12/16/23 21:00 12/19/23 20:42 Gabapentin 300 Mg Capsule PO 600 mg BID LILLIAN Administration Ceftriaxone Sodium 1 gm/ 100 mls @ 200 mls/hr 12/17/23 09:00 12/19/23 08:20 Sodium Chloride IV 200 mls/hr DAILY LILLIAN Administration Insulin Glargine-yfgn 46 unit 12/19/23 21:00 12/19/23 20:41 Insulin Glargine-Yfgn 300 Unit/3 Ml Pen SUBQ 46 unit QPM LILLIAN Administration Insulin Human Lispro 10 unit 12/19/23 12:00 12/19/23 17:13 Insulin Lispro 300 Unit/3 Ml Pen SUBQ 10 unit TIDWM LILLIAN Administration Insulin Human Lispro 0 unit 12/19/23 17:30 12/19/23 20:41 Insulin Lispro 300 Unit/3 Ml Pen SUBQ 7 unit 0800,1200,1700,2100 LILLIAN Administration Protocol Losartan Potassium 100 mg 12/17/23 17:09 12/19/23 08:21 Losartan 50 Mg Tablet PO 100 mg DAILY LILLIAN Administration Multivitamins/Minerals 1 tab 12/17/23 09:00 12/19/23 08:21 Multivitamin W/Minerals Tablet PO 1 tab DAILYWM LILLIAN Administration Ondansetron HCl 4 mg 12/16/23 14:31 12/16/23 21:29 Ondansetron 4 Mg/2 Ml Vial IVP 4 mg Q6HR PRN Administration Nausea / Vomiting Oxycodone HCl 5 mg 12/16/23 14:31 12/20/23 05:13 Oxycodone 5 Mg Tablet PO 5 mg Q4HR PRN Administration Pain 5 to 7 Polyethylene Glycol 17 gm 12/19/23 10:00 12/19/23 10:41 Polyethylene Glycol 3350 17 Gm Packet PO 17 gm DAILY LILLIAN Administration Sodium Chloride 10 ml 12/16/23 17:00 12/20/23 00:47 Sodium Chloride Flush 0.9% 10 Ml Syringe IVP 10 ml 0100,0900,1700 LILLIAN Administration Zolpidem Tartrate 5 mg 12/16/23 17:11 12/16/23 22:30 Zolpidem 5 Mg Tablet PO 5 mg QPM PRN Administration Insomnia - Lab Result Lab results reviewed: Yes Fish Bone Diagrams: 12/20/23 05:08 12/20/23 05:08 - Additional Planning Condition/Complexity: Improved My Orders: My Active Orders 12/19/23 10:00 polyethylene glycoL 3350 [Miralax] 17 gm PO DAILY 12/19/23 10:52 Ipratropium/Albuterol [Duoneb] 3 ml INH RTQID PRN 12/19/23 10:53 Nebulizer/MDI Tx. [RC] .PRN Resp Teach Nebulizer/MDI [RC] .ONCE 12/19/23 12:00 Insulin Lispro [Humalog Kwikpen U-100] 10 unit SUBQ TIDWM 12/19/23 17:30 Insulin Lispro [Humalog Kwikpen U-100] See Dose Instructions SUBQ 0800,1200,1700,2100 12/19/23 21:00 Insulin Glargine-Yfgn [Semglee] 46 unit SUBQ QPM 12/20/23 05:00 CRP - C-REACTIVE PROTEIN [CHEM] Routine 12/21/23 05:00 BMP - BASIC METABOLIC PANEL [CHEM] DAILYLAB CBC [CBC - COMP BLD CT W/AUTO DIFF] [HEME] DAILYLAB CRP - C-REACTIVE PROTEIN [CHEM] DAILYLAB 12/22/23 05:00 CRP - C-REACTIVE PROTEIN [CHEM] DAILYLAB Plan Discussed with:: Patient Time Spent: 15-30 minutes Additional Planning Notes: Still on IV antibiotics for pneumonia, still optimize insulin use Plans for discharge in 1 to 2 days Subjective - Subjective Patient Reports: Feeling Better, Shortness of Breath (Improved) Objective Vital Signs: Vital Signs - 24 hr 12/19/23 12/19/23 12/20/23 16:00 23:50 06:30 Temperature 37.6 C 37.1 C Heart Rate 93 Heart Rate [ 100 99 Brachial] Respiratory 12 18 18 Rate Blood Pressure 168/81 H 134/64 H [Right Brachial artery] O2 Saturation 98 92 12/20/23 07:23 Temperature 37 C Heart Rate Heart Rate [ 91 Brachial] Respiratory 20 Rate Blood Pressure 133/70 H [Right Brachial artery] O2 Saturation 92 Oxygen O2 Source Room air I&O (Last 24 Hrs): Intake and Output Totals x24h 12/18/23 12/19/23 12/20/23 23:59 23:59 23:59 Intake Total 2702 2460 1600 Balance 2702 2460 1600 General: Alert, Oriented x3 HEENT: PERRLA, EOMI Neuro: Alert, Non Focal Cardiovascular: Regular rate Respiratory: Chest non-tender, No respiratory distress, Rales (On right lower lobe) Abdomen: Soft, No tenderness - Results Results: Laboratory Results WBC 14.4 x10^3/uL (4.8-10.8) H 12/20/23 05:08 RBC 3.28 10^6/uL (4.70-6.10) L 12/20/23 05:08 Hgb 10.4 g/dL (14.0-18.0) L 12/20/23 05:08 Hct 30.9 % (42.0-52.0) L 12/20/23 05:08 MCV 94.2 fL (80.0-94.0) H 12/20/23 05:08 MCH 31.7 pg (27.0-31.0) H 12/20/23 05:08 MCHC 33.7 g/dL (32.0-36.0) 12/20/23 05:08 RDW 11.7 % (12.0-15.0) L 12/20/23 05:08 Plt Count 310 10^3/uL (130-450) 12/20/23 05:08 MPV 9.8 fL (7.4-11.4) 12/20/23 05:08 Neut # (Auto) 10.7 10^3/uL (1.5-6.6) H 12/20/23 05:08 Lymph # (Auto) 1.2 10^3/uL (1.5-3.5) L 12/20/23 05:08 [place] # (Auto) 2.2 10^3/uL (0.0-1.0) H 12/20/23 05:08 Eos # (Auto) 0.2 10^3/uL (0.0-0.7) 12/20/23 05:08 Baso # (Auto) 0.1 10^3/uL (0.0-0.1) 12/20/23 05:08 Absolute Nucleated RBC 0.00 x10^3/uL 12/20/23 05:08 Total Counted 100 12/18/23 05:31 Band Neuts % (Manual) 13 % (0-10) H 12/18/23 05:31 Reactive Lymphs % (Man) 3 % 12/18/23 05:31 Abnorm Lymph % (Manual) 0 % 12/18/23 05:31 Nucleated RBC % 0.0 /100WBC 12/20/23 05:08 Neutrophils # (Manual) 9.0 10^3/uL (1.5-6.6) H 12/18/23 05:31 Lymphocytes # (Manual) 1.3 10^3/uL (1.5-3.5) L 12/18/23 05:31 Monocytes # (Manual) 1.8 10^3/uL (0.0-1.0) H 12/18/23 05:31 Eosinophils # (Manual) 0.0 10^3/uL (0-0.7) 12/18/23 05:31 Basophils # (Manual) 0.0 10^3/uL (0-0.1) 12/18/23 05:31 Differential Comment MANUAL DIFFERENTIAL 12/18/23 05:31 Manual Slide Review Indicated 12/20/23 05:08 WBC Morphology NORMAL APPEARANCE (NORMAL) 12/16/23 13:20 Platelet Estimate NORMAL (130-450,000) (NORMAL) 12/20/23 05:08 Platelet Morphology PLATELET CLUMPING (NORMAL) 12/20/23 05:08 RBC Morph Micro Appear NORMAL APPEARANCE (NORMAL) 12/20/23 05:08 VBG pH 7.207 (7.31-7.41) L 12/16/23 14:14 VBG pCO2 32.5 mmHg (41-51) L 12/16/23 14:14 VBG pO2 66.3 mmHg (25-47) H 12/16/23 14:14 VBG HCO3 12.6 mmol/L (23-28) L 12/16/23 14:14 VBG Total CO2 13.6 mmol/L (24-29) L 12/16/23 14:14 VBG O2 Saturation 92.5 % (60-80) H 12/16/23 14:14 VBG Base Excess -14.1 mmol/L (-2 - +2) L 12/16/23 14:14 Sodium 129 mmol/L (135-145) L 12/20/23 05:08 Potassium 4.1 mmol/L (3.5-4.5) 12/20/23 05:08 Chloride 97 mmol/L (101-111) L 12/20/23 05:08 Carbon Dioxide 26 mmol/L (21-32) 12/20/23 05:08 Anion Gap 6.0 (6-13) 12/20/23 05:08 BUN 17 mg/dL (6-20) 12/20/23 05:08 Creatinine 0.6 mg/dL (0.6-1.3) 12/20/23 05:08 Estimated GFR (MDRD) 137 (>89) 12/20/23 05:08 Glucose 178 mg/dL (74-104) H 12/20/23 05:08 POC Whole Bld Glucose 161 mg/dL (70 - 100) H 12/20/23 07:17 Estimat Average Glucose 324 mg/dL (70-100) H 12/17/23 04:43 Hemoglobin A1c % 12.9 % (4.27-6.07) H 12/17/23 04:43 Calcium 8.0 mg/dL (8.5-10.3) L 12/20/23 05:08 Magnesium 2.0 mg/dL (1.7-2.3) 12/16/23 13:20 Total Bilirubin 0.3 mg/dL (0.2-1.0) 12/16/23 13:20 AST 6 IU/L (10-42) L 12/16/23 13:20 ALT 7 IU/L (10-60) L 12/16/23 13:20 Alkaline Phosphatase 68 IU/L (42-121) 12/16/23 13:20 Troponin I High Sens 4.6 ng/L (2.3-19.7) 12/17/23 04:43 C-Reactive Protein 28.1 mg/dL (<0.5) H 12/19/23 06:02 Total Protein 6.2 g/dL (6.4-8.9) L 12/16/23 13:20 Albumin 2.9 g/dL (3.2-5.5) L 12/16/23 13:20 Globulin 3.3 g/dL (2.1-4.2) 12/16/23 13:20 Albumin/Globulin Ratio 0.9 (1.0-2.2) L 12/16/23 13:20 Triglycerides 135 mg/dL (48-352) 12/17/23 04:43 Cholesterol 150 mg/dL (-200) 12/17/23 04:43 LDL Cholesterol, Calc 92 mg/dL (-129) 12/17/23 04:43 VLDL Cholesterol 27 mg/dL 12/17/23 04:43 HDL Cholesterol 31 mg/dL (60-) L 12/17/23 04:43 LDL/HDL Ratio 3.0 (<3.6) 12/17/23 04:43 Cholesterol/HDL Ratio 4.8 (<5.0) 12/17/23 04:43 Lipase < 10 U/L (11-82) L 12/16/23 13:20 Vitamin B12 713 pg/mL (180-914) 12/17/23 04:43 Vitamin D 25-Hydroxy 10.3 ng/mL (30.0-100.0) L 12/16/23 13:20 Serum Ketones SMALL (NEGATIVE) H 12/16/23 13:20 - Procedures Procedures: Procedures DETACHMENT AT LEFT 2ND TOE, COMPLETE, OPEN APPROACH (03/11/16) DETACHMENT AT LEFT 4TH TOE, COMPLETE, OPEN APPROACH (02/07/21) DETACHMENT AT LEFT 5TH TOE, COMPLETE, OPEN APPROACH (04/30/17) DETACHMENT AT RIGHT 1ST TOE, HIGH, OPEN APPROACH (10/20/16) DETACHMENT AT RIGHT 5TH TOE, COMPLETE, OPEN APPROACH (06/05/18) EXCIS DEBRIDE OF WOUND, INFECT, OR BURN (02/19/15) EXCISION OF RIGHT METATARSAL, OPEN APPROACH (06/05/18) RESECTION OF LEFT METATARSAL, OPEN APPROACH (01/05/19) VENOUS CATHETERIZATION NEC (02/19/15) Sepsis Event Note (H) - Evaluation Current Stage of Sepsis: Ruled out ABX Reporting Has patient been on IV antibiotics over the past 48 hours?: Yes
[2023-12-21 05:43] LABS: BASOPHILS # (AUTO) 0.1 10^3/uL (0.0-0.1); BASOPHILS % (AUTO) 0.3 %; EOSINOPHILS # (AUTO) 0.2 10^3/uL (0.0-0.7); HCT - HEMATOCRIT 31.3 % (42.0-52.0); HGB - HEMOGLOBIN 10.7 g/dL (14.0-18.0); LYMPHOCYTES # (AUTO) 1.2 10^3/uL (1.5-3.5); LYMPHOCYTES % (AUTO) 7.6 %; MEAN CORPUSCULAR HEMOGLOBIN 32.3 pg (27.0-31.0); MEAN CORPUSCULAR HGB CONC 34.2 g/dL (32.0-36.0); MEAN CORPUSCULAR VOLUME 94.6 fL (80.0-94.0); MEAN PLATELET VOLUME 9.4 fL (7.4-11.4); MONOCYTES # (AUTO) 2.5 10^3/uL (0.0-1.0); NEUTROPHILS # (AUTO) 11.3 10^3/uL (1.5-6.6); NEUTROPHILS % (AUTO) 74.1 %; PLT - PLATELET COUNT 347 10^3/uL (130-450); RED BLOOD COUNT 3.31 10^6/uL (4.70-6.10); RED CELL DISTRIBUTION WIDTH 11.9 % (12.0-15.0); WHITE BLOOD COUNT 15.3 x10^3/uL (4.8-10.8)
[2023-12-21 05:45] LABS: SLIDE REVIEW? Indicated
[2023-12-21 06:10] LABS: CALCIUM 8.3 mg/dL (8.5-10.3); CREATININE 0.6 mg/dL (0.6-1.3); CRP - C-REACTIVE PROTEIN 29.5 mg/dL (<0.5); POTASSIUM 4.3 mmol/L (3.5-4.5)
[2023-12-21 06:34] LABS: DIFFERENTIAL COMMENT MANUAL=AUTO DIFF; PLATELET ESTIMATE, MANUAL NORMAL (130-450,000) (NORMAL); PLATELET MORPHOLOGY NORMAL APPEARANCE (NORMAL); RBC MORPHOLOGY (MULTIPLE) 1+ POLYCHROMASIA (NORMAL); WBC MORPHOLOGY (MULTIPLE) NORMAL APPEARANCE (NORMAL)
--- NOTE | 2023-12-21 08:32 | PROVIDER PROGRESS NOTE ---
Assessment/Plan - Problem List (1) Pneumonia Qualifiers: Pneumonia type: due to unspecified organism Laterality: right Lung location: lower lobe of lung Qualified Code(s): J18.9 - Pneumonia, unspecified organism Assessment/Plan: not improved WBC trends up 15, CRP trends up to 29 repeat CXR, Right lung lobular effusion appears same, Pulmonary: Congestion noted Give Lasix 1 dose (2) Secondary DM with DKA, uncontrolled Assessment/Plan: resolved DKA Improved BS (3) Chest pain, pleuritic Assessment/Plan: Chest pain seems improved some Continue monitoring (4) Diabetic neuropathy Qualifiers: Diabetes mellitus type: type 2 Assessment/Plan: Stable (5) Peripheral neuropathy Qualifiers: Peripheral neuropathy type: polyneuropathy associated with underlying disease Qualified Code(s): G63 - Polyneuropathy in diseases classified elsewhere Assessment/Plan: Chronic stable (6) HTN (hypertension) Qualifiers: Assessment/Plan: BP 150/60 Continue with current regimen Add Lasix today - Current Meds Current Meds: Current Medications Generic Name Dose Route Start Last Admin Trade Name Freq PRN Reason Stop Dose Admin Acetaminophen 650 mg 12/16/23 14:31 12/21/23 08:10 Acetaminophen 325 Mg Tablet PO 650 mg Q4HR PRN Administration Pain 1 to 4, or Fever Albuterol/Ipratropium 3 ml 12/19/23 10:52 12/20/23 06:30 Ipratropium/Albuterol 3 Ml Neb INH 3 ml RTQID PRN Administration Shortness of Air/Wheezing Amlodipine Besylate 10 mg 12/17/23 09:00 12/21/23 08:10 Amlodipine 5 Mg Tablet PO 10 mg DAILY LILLIAN Administration Calcium Carbonate/Glycine 500 mg 12/17/23 10:00 12/21/23 08:10 Calcium Carbonate Chew 500 Mg Tablet PO 500 mg BID LILLIAN Administration Enoxaparin Sodium 40 mg 12/17/23 09:00 12/21/23 08:11 Enoxaparin 40 Mg/0.4 Ml Syringe SUBQ Not Given DAILY LILLIAN Gabapentin 600 mg 12/16/23 21:00 12/21/23 08:10 Gabapentin 300 Mg Capsule PO 600 mg BID LILLIAN Administration Ceftriaxone Sodium 1 gm/ 100 mls @ 200 mls/hr 12/17/23 09:00 12/21/23 08:09 Sodium Chloride IV 200 mls/hr DAILY LILLIAN Administration Insulin Glargine-yfgn 46 unit 12/19/23 21:00 12/20/23 20:49 Insulin Glargine-Yfgn 300 Unit/3 Ml Pen SUBQ 46 unit QPM LILLIAN Administration Insulin Human Lispro 10 unit 12/19/23 12:00 12/21/23 08:08 Insulin Lispro 300 Unit/3 Ml Pen SUBQ 10 unit TIDWM LILLIAN Administration Insulin Human Lispro 0 unit 12/19/23 17:30 12/21/23 08:09 Insulin Lispro 300 Unit/3 Ml Pen SUBQ 1 unit 0800,1200,1700,2100 LILLIAN Administration Protocol Losartan Potassium 100 mg 12/17/23 17:09 12/21/23 08:10 Losartan 50 Mg Tablet PO 100 mg DAILY LILLIAN Administration Multivitamins/Minerals 1 tab 12/17/23 09:00 12/21/23 08:11 Multivitamin W/Minerals Tablet PO Not Given DAILYWM [facility] Ondansetron HCl 4 mg 12/16/23 14:31 12/16/23 21:29 Ondansetron 4 Mg/2 Ml Vial IVP 4 mg Q6HR PRN Administration Nausea / Vomiting Oxycodone HCl 5 mg 12/16/23 14:31 12/21/23 05:53 Oxycodone 5 Mg Tablet PO 5 mg Q4HR PRN Administration Pain 5 to 7 Polyethylene Glycol 17 gm 12/19/23 10:00 12/21/23 08:11 Polyethylene Glycol 3350 17 Gm Packet PO Not Given DAILY [facility] Sodium Chloride 10 ml 12/16/23 17:00 12/21/23 08:11 Sodium Chloride Flush 0.9% 10 Ml Syringe IVP 10 ml 0100,0900,1700 LILLIAN Administration Zolpidem Tartrate 5 mg 12/16/23 17:11 12/16/23 22:30 Zolpidem 5 Mg Tablet PO 5 mg QPM PRN Administration Insomnia - Lab Result Fish Bone Diagrams: 12/21/23 05:31 12/21/23 05:31 - Additional Planning Condition/Complexity: Other (Not improved) My Orders: My Active Orders 12/21/23 08:29 Chest 2V [XR] Routine 12/22/23 05:00 CRP - C-REACTIVE PROTEIN [CHEM] DAILYLAB Time Spent: 31-60 minutes Additional Planning Notes: Patient still has leukocytosis, has sign of pulmonary congestion Not medically stable for discharge Subjective - Subjective Patient Reports: Other (Feels slightly better, chest pain has improved) Objective Vital Signs: Vital Signs - 24 hr 12/20/23 12/20/23 12/21/23 15:55 16:20 00:13 Temperature 37.2 C 37.6 C Heart Rate [ 94 86 Brachial] Respiratory 17 18 Rate Blood Pressure 147/72 H 133/72 H [Right Brachial artery] O2 Saturation 90 L 93 91 L 12/21/23 07:28 Temperature 36.7 C Heart Rate [ 83 Brachial] Respiratory 18 Rate Blood Pressure 128/73 [Right Brachial artery] O2 Saturation 91 L Oxygen O2 Source Room air I&O (Last 24 Hrs): Intake and Output Totals x24h 12/19/23 12/20/23 12/22/23 23:59 23:59 00:59 Intake Total 2560 2606 Balance 2560 2606 General: Alert, Oriented x3 HEENT: PERRLA, EOMI Neck: No JVD Neuro: Alert, Non Focal Cardiovascular: Regular rate Abdomen: Soft Extremities: No cyanosis, Other (S/p TMA) - Results Results: Laboratory Results WBC 15.3 x10^3/uL (4.8-10.8) H 12/21/23 05:31 RBC 3.31 10^6/uL (4.70-6.10) L 12/21/23 05:31 Hgb 10.7 g/dL (14.0-18.0) L 12/21/23 05:31 Hct 31.3 % (42.0-52.0) L 12/21/23 05:31 MCV 94.6 fL (80.0-94.0) H 12/21/23 05:31 MCH 32.3 pg (27.0-31.0) H 12/21/23 05:31 MCHC 34.2 g/dL (32.0-36.0) 12/21/23 05:31 RDW 11.9 % (12.0-15.0) L 12/21/23 05:31 Plt Count 347 10^3/uL (130-450) 12/21/23 05:31 MPV 9.4 fL (7.4-11.4) 12/21/23 05:31 Neut # (Auto) 11.3 10^3/uL (1.5-6.6) H 12/21/23 05:31 Lymph # (Auto) 1.2 10^3/uL (1.5-3.5) L 12/21/23 05:31 [place] # (Auto) 2.5 10^3/uL (0.0-1.0) H 12/21/23 05:31 Eos # (Auto) 0.2 10^3/uL (0.0-0.7) 12/21/23 05:31 Baso # (Auto) 0.1 10^3/uL (0.0-0.1) 12/21/23 05:31 Absolute Nucleated RBC 0.00 x10^3/uL 12/21/23 05:31 Total Counted 100 12/18/23 05:31 Band Neuts % (Manual) Not Reportable 12/21/23 05:31 Reactive Lymphs % (Man) 3 % 12/18/23 05:31 Abnorm Lymph % (Manual) Not Reportable 12/21/23 05:31 Nucleated RBC % 0.0 /100WBC 12/21/23 05:31 Neutrophils # (Manual) Not Reportable 12/21/23 05:31 Lymphocytes # (Manual) Not Reportable 12/21/23 05:31 Monocytes # (Manual) Not Reportable 12/21/23 05:31 Eosinophils # (Manual) Not Reportable 12/21/23 05:31 Basophils # (Manual) Not Reportable 12/21/23 05:31 Differential Comment MANUAL=AUTO DIFF 12/21/23 05:31 Manual Slide Review Indicated 12/21/23 05:31 WBC Morphology NORMAL APPEARANCE (NORMAL) 12/21/23 05:31 Platelet Estimate NORMAL (130-450,000) (NORMAL) 12/21/23 05:31 Platelet Morphology NORMAL APPEARANCE (NORMAL) 12/21/23 05:31 RBC Morph Micro Appear 1+ POLYCHROMASIA (NORMAL) 12/21/23 05:31 VBG pH 7.207 (7.31-7.41) L 12/16/23 14:14 VBG pCO2 32.5 mmHg (41-51) L 12/16/23 14:14 VBG pO2 66.3 mmHg (25-47) H 12/16/23 14:14 VBG HCO3 12.6 mmol/L (23-28) L 12/16/23 14:14 VBG Total CO2 13.6 mmol/L (24-29) L 12/16/23 14:14 VBG O2 Saturation 92.5 % (60-80) H 12/16/23 14:14 VBG Base Excess -14.1 mmol/L (-2 - +2) L 12/16/23 14:14 Sodium 129 mmol/L (135-145) L 12/21/23 05:31 Potassium 4.3 mmol/L (3.5-4.5) 12/21/23 05:31 Chloride 95 mmol/L (101-111) L 12/21/23 05:31 Carbon Dioxide 28 mmol/L (21-32) 12/21/23 05:31 Anion Gap 6.0 (6-13) 12/21/23 05:31 BUN 13 mg/dL (6-20) 12/21/23 05:31 Creatinine 0.6 mg/dL (0.6-1.3) 12/21/23 05:31 Estimated GFR (MDRD) 137 (>89) 12/21/23 05:31 Glucose 149 mg/dL (74-104) H 12/21/23 05:31 POC Whole Bld Glucose 167 mg/dL (70 - 100) H 12/21/23 07:17 Estimat Average Glucose 324 mg/dL (70-100) H 12/17/23 04:43 Hemoglobin A1c % 12.9 % (4.27-6.07) H 12/17/23 04:43 Calcium 8.3 mg/dL (8.5-10.3) L 12/21/23 05:31 Magnesium 2.0 mg/dL (1.7-2.3) 12/16/23 13:20 Total Bilirubin 0.3 mg/dL (0.2-1.0) 12/16/23 13:20 AST 6 IU/L (10-42) L 12/16/23 13:20 ALT 7 IU/L (10-60) L 12/16/23 13:20 Alkaline Phosphatase 68 IU/L (42-121) 12/16/23 13:20 Troponin I High Sens 4.6 ng/L (2.3-19.7) 12/17/23 04:43 C-Reactive Protein 29.5 mg/dL (<0.5) H 12/21/23 05:31 Total Protein 6.2 g/dL (6.4-8.9) L 12/16/23 13:20 Albumin 2.9 g/dL (3.2-5.5) L 12/16/23 13:20 Globulin 3.3 g/dL (2.1-4.2) 12/16/23 13:20 Albumin/Globulin Ratio 0.9 (1.0-2.2) L 12/16/23 13:20 Triglycerides 135 mg/dL (48-352) 12/17/23 04:43 Cholesterol 150 mg/dL (-200) 12/17/23 04:43 LDL Cholesterol, Calc 92 mg/dL (-129) 12/17/23 04:43 VLDL Cholesterol 27 mg/dL 12/17/23 04:43 HDL Cholesterol 31 mg/dL (60-) L 12/17/23 04:43 LDL/HDL Ratio 3.0 (<3.6) 12/17/23 04:43 Cholesterol/HDL Ratio 4.8 (<5.0) 12/17/23 04:43 Lipase < 10 U/L (11-82) L 12/16/23 13:20 Vitamin B12 713 pg/mL (180-914) 12/17/23 04:43 Vitamin D 25-Hydroxy 10.3 ng/mL (30.0-100.0) L 12/16/23 13:20 Serum Ketones SMALL (NEGATIVE) H 12/16/23 13:20 - Procedures Procedures: Procedures DETACHMENT AT LEFT 2ND TOE, COMPLETE, OPEN APPROACH (03/11/16) DETACHMENT AT LEFT 4TH TOE, COMPLETE, OPEN APPROACH (02/07/21) DETACHMENT AT LEFT 5TH TOE, COMPLETE, OPEN APPROACH (04/30/17) DETACHMENT AT RIGHT 1ST TOE, HIGH, OPEN APPROACH (10/20/16) DETACHMENT AT RIGHT 5TH TOE, COMPLETE, OPEN APPROACH (06/05/18) EXCIS DEBRIDE OF WOUND, INFECT, OR BURN (02/19/15) EXCISION OF RIGHT METATARSAL, OPEN APPROACH (06/05/18) RESECTION OF LEFT METATARSAL, OPEN APPROACH (01/05/19) VENOUS CATHETERIZATION NEC (02/19/15) Sepsis Event Note (H) - Evaluation Current Stage of Sepsis: Ruled out ABX Reporting Has patient been on IV antibiotics over the past 48 hours?: Yes
--- NOTE | 2023-12-21 09:22 | XRAY Report ---
PROCEDURE: Chest 2V INDICATIONS: Pneumonia TECHNIQUE: 2 views of the chest were acquired. COMPARISON: 12/18/2023, 12/16/2023, 12/15/2023. Correlation is also made with CT, 12/15/2023. FINDINGS: Surgical changes and devices: None. Lungs and pleura: Abnormal opacities are again seen within the right mid lung. On the prior CT, thes e can be seen as loculated pleural effusions. Milder areas of poorly defined interstitial type opacit y can be seen elsewhere within the lungs. Blunting of the costophrenic angles can be seen. No pneumot horax is seen. Mediastinum: Mediastinal contours appear normal. Heart size is normal. Bones and chest wall: No suspicious bony lesions. Overlying soft tissues appear unremarkable. IMPRESSION: Continued abnormal opacities within the right midlung, which are attributed to loculated pleural effu sions. Mild areas of interstitial prominence can be seen elsewhere within the lungs, likely representing mil d pulmonary edema. Reviewed by: Anish Mcguire MD on 12/21/2023 8:21 AM [facility] Approved by: Anish Mcguire MD on 12/21/2023 8:21 AM WILNER Station ID: [id number]
[2023-12-21] MEDS: FUROSEMIDE 20 MG/2 ML VIAL IVP ONE (13:08)
[2023-12-21] MEDS: POTASSIUM CHLORIDE 10 MEQ CAPSULE PO ONE (13:08)
[2023-12-21] MEDS: SODIUM CHLORIDE FLUSH 0.9% 10 ML SYRINGE IVP PRN (18:05)
[2023-12-22 06:42] LABS: BASOPHILS # (AUTO) 0.1 10^3/uL (0.0-0.1); BASOPHILS % (AUTO) 0.4 %; EOSINOPHILS # (AUTO) 0.2 10^3/uL (0.0-0.7); EOSINOPHILS % (AUTO) 1.8 %; HCT - HEMATOCRIT 31.2 % (42.0-52.0); HGB - HEMOGLOBIN 10.4 g/dL (14.0-18.0); LYMPHOCYTES # (AUTO) 1.1 10^3/uL (1.5-3.5); LYMPHOCYTES % (AUTO) 8.1 %; MEAN CORPUSCULAR HEMOGLOBIN 31.7 pg (27.0-31.0); MEAN CORPUSCULAR HGB CONC 33.3 g/dL (32.0-36.0); MEAN CORPUSCULAR VOLUME 95.1 fL (80.0-94.0); MEAN PLATELET VOLUME 9.5 fL (7.4-11.4); MONOCYTES # (AUTO) 2.4 10^3/uL (0.0-1.0); MONOCYTES % (AUTO) 18.4 %; NEUTROPHILS # (AUTO) 9.1 10^3/uL (1.5-6.6); NEUTROPHILS % (AUTO) 70.3 %; PLT - PLATELET COUNT 405 10^3/uL (130-450); RED BLOOD COUNT 3.28 10^6/uL (4.70-6.10); RED CELL DISTRIBUTION WIDTH 11.8 % (12.0-15.0)
[2023-12-22 06:49] LABS: SLIDE REVIEW? Indicated
[2023-12-22 06:55] LABS: CALCIUM 8.2 mg/dL (8.5-10.3); CREATININE 0.6 mg/dL (0.6-1.3); CRP - C-REACTIVE PROTEIN 29.5 mg/dL (<0.5); POTASSIUM 4.3 mmol/L (3.5-4.5)
[2023-12-22 07:39] LABS: RBC MORPHOLOGY (MULTIPLE) 1+ ANISOCYTOSIS (NORMAL)
[2023-12-22 07:40] LABS: PLATELET ESTIMATE, MANUAL NORMAL (130-450,000) (NORMAL)
--- NOTE | 2023-12-22 13:17 | Ultrasound Report ---
PROCEDURE: Chest INDICATIONS: right lung pleural loculated effusion TECHNIQUE: Real-time scanning was performed of the right pleural effusion. COMPARISON: CXR earlier today, 12/18/2023. CT chest 12/15/2023. FINDINGS: Small right pleural effusion. The pleural effusion is loculated with multiple septations and internal debris. No pocket demonstrated for safe or significant thoracentesis. IMPRESSION: Complex small right pleural effusion containing multiple septations and internal debris. Fluid is ins ufficient for thoracentesis. Reviewed by: Carl Waters MD on 12/22/2023 1:16 PM PDT Approved by: Carl Waters MD on 12/22/2023 1:16 PM PDT Station ID: [id number]
--- NOTE | 2023-12-22 23:45 | PROVIDER PROGRESS NOTE ---
Assessment/Plan - Problem List (1) Pneumonia Qualifiers: Pneumonia type: due to unspecified organism Laterality: right Lung location: lower lobe of lung Qualified Code(s): J18.9 - Pneumonia, unspecified organism Assessment/Plan: , Loculated right middle lobe pneumonia pleural effusion Discussed with radiologist Dr. Waters, who recommended for ultrasound exam to see if it is possible for a drainage Ultrasound did detected a long loculated pleural effusion however not enough for drainage Continue IV antibiotics ceftriaxone, may consider escalate antibiotics if white count still persistent and CRP still persistent (2) Secondary DM with DKA, uncontrolled Assessment/Plan: DKA resolved, blood sugar improved, may consider discharge on 70/30 insulin for better compliance (3) Chest pain, pleuritic Assessment/Plan: Secondary to pleural effusion/pneumonia Continue treat with antibiotic (4) Diabetic neuropathy Qualifiers: Diabetes mellitus type: type 2 Assessment/Plan: Continue with gabapentin (5) HTN (hypertension) Qualifiers: Assessment/Plan: Stable, continue current regimen - Current Meds Current Meds: Current Medications Generic Name Dose Route Start Last Admin Trade Name Freq PRN Reason Stop Dose Admin Acetaminophen 650 mg 12/16/23 14:31 12/22/23 21:40 Acetaminophen 325 Mg Tablet PO 650 mg Q4HR PRN Administration Pain 1 to 4, or Fever Albuterol/Ipratropium 3 ml 12/19/23 10:52 12/22/23 16:37 Ipratropium/Albuterol 3 Ml Neb INH 3 ml RTQID PRN Administration Shortness of Air/Wheezing Amlodipine Besylate 10 mg 12/17/23 09:00 12/22/23 08:16 Amlodipine 5 Mg Tablet PO 10 mg DAILY LILLIAN Administration Calcium Carbonate/Glycine 500 mg 12/17/23 10:00 12/22/23 21:35 Calcium Carbonate Chew 500 Mg Tablet PO 500 mg BID LILLIAN Administration Enoxaparin Sodium 40 mg 12/17/23 09:00 12/22/23 09:02 Enoxaparin 40 Mg/0.4 Ml Syringe SUBQ Not Given DAILY LILLIAN Gabapentin 600 mg 12/16/23 21:00 12/22/23 21:35 Gabapentin 300 Mg Capsule PO 600 mg BID LILLIAN Administration Insulin Glargine-yfgn 46 unit 12/19/23 21:00 12/22/23 21:35 Insulin Glargine-Yfgn 300 Unit/3 Ml Pen SUBQ 46 unit QPM LILLIAN Administration Insulin Human Lispro 10 unit 12/19/23 12:00 12/22/23 17:55 Insulin Lispro 300 Unit/3 Ml Pen SUBQ 10 unit TIDWM LILLIAN Administration Insulin Human Lispro 0 unit 12/19/23 17:30 12/22/23 21:36 Insulin Lispro 300 Unit/3 Ml Pen SUBQ 5 unit 0800,1200,1700,2100 LILLIAN Administration Protocol Losartan Potassium 100 mg 12/17/23 17:09 12/22/23 08:15 Losartan 50 Mg Tablet PO 100 mg DAILY LILLIAN Administration Multivitamins/Minerals 1 tab 12/17/23 09:00 12/22/23 08:10 Multivitamin W/Minerals Tablet PO 1 tab DAILYWM LILLIAN Administration Ondansetron HCl 4 mg 12/16/23 14:31 12/16/23 21:29 Ondansetron 4 Mg/2 Ml Vial IVP 4 mg Q6HR PRN Administration Nausea / Vomiting Oxycodone HCl 5 mg 12/16/23 14:31 12/22/23 21:40 Oxycodone 5 Mg Tablet PO 5 mg Q4HR PRN Administration Pain 5 to 7 Polyethylene Glycol 17 gm 12/19/23 10:00 12/22/23 09:02 Polyethylene Glycol 3350 17 Gm Packet PO Not Given DAILY [facility] Sodium Chloride 10 ml 12/16/23 17:00 12/22/23 17:56 Sodium Chloride Flush 0.9% 10 Ml Syringe IVP 10 ml 0100,0900,1700 LILLIAN Administration Sodium Chloride 10 ml 12/16/23 14:31 12/21/23 18:05 Sodium Chloride Flush 0.9% 10 Ml Syringe IVP 10 ml PRN PRN Administration NEEDED PER PROVIDER ORDERS Zolpidem Tartrate 5 mg 12/16/23 17:11 12/21/23 22:57 Zolpidem 5 Mg Tablet PO 5 mg QPM PRN Administration Insomnia - Lab Result Lab results reviewed: Yes Fish Bone Diagrams: 12/22/23 06:04 12/22/23 06:04 - Additional Planning Condition/Complexity: Other (Pneumonia is not improved, Not improved) My Orders: My Active Orders 12/22/23 08:19 Free Water Restriction [RC] IOSHIFT 12/23/23 05:00 BMP - BASIC METABOLIC PANEL [CHEM] DAILYLAB CBC [CBC - COMP BLD CT W/AUTO DIFF] [HEME] DAILYLAB 12/24/23 05:00 BMP - BASIC METABOLIC PANEL [CHEM] DAILYLAB CBC [CBC - COMP BLD CT W/AUTO DIFF] [HEME] DAILYLAB 12/25/23 05:00 BMP - BASIC METABOLIC PANEL [CHEM] DAILYLAB CBC [CBC - COMP BLD CT W/AUTO DIFF] [HEME] DAILYLAB 12/26/23 05:00 BMP - BASIC METABOLIC PANEL [CHEM] DAILYLAB CBC [CBC - COMP BLD CT W/AUTO DIFF] [HEME] DAILYLAB Plan Discussed with:: Patient Time Spent: 31-60 minutes Additional Planning Notes: Patient is not medically cleared for discharge. Continue work on control of the right lung pneumonia Subjective - Subjective Patient Reports: Feeling Better (Less pain in the chest) Objective Vital Signs: Vital Signs - 24 hr 12/22/23 12/22/23 12/22/23 00:00 07:41 16:00 Temperature 36.6 C 36.5 C 37.5 C Heart Rate Heart Rate [ 76 71 89 Brachial] Respiratory 16 18 16 Rate Blood Pressure 118/63 [Left Brachial artery] Blood Pressure 124/60 116/56 L [Right Brachial artery] O2 Saturation 92 92 90 L 12/22/23 12/22/23 16:26 16:38 Temperature 37.6 C Heart Rate 88 Heart Rate [ Brachial] Respiratory 20 Rate Blood Pressure [Left Brachial artery] Blood Pressure [Right Brachial artery] O2 Saturation Oxygen O2 Source Room air I&O (Last 24 Hrs): Intake and Output Totals x24h 12/20/23 12/21/23 12/22/23 22:59 23:59 23:59 Intake Total 1720 Balance 1720 General: Oriented x3 HEENT: Atraumatic, PERRLA, EOMI Neck: Supple Neuro: Alert, Non Focal Respiratory: No respiratory distress - Results Results: Laboratory Results WBC 13.0 x10^3/uL (4.8-10.8) H 12/22/23 06:04 RBC 3.28 10^6/uL (4.70-6.10) L 12/22/23 06:04 Hgb 10.4 g/dL (14.0-18.0) L 12/22/23 06:04 Hct 31.2 % (42.0-52.0) L 12/22/23 06:04 MCV 95.1 fL (80.0-94.0) H 12/22/23 06:04 MCH 31.7 pg (27.0-31.0) H 12/22/23 06:04 MCHC 33.3 g/dL (32.0-36.0) 12/22/23 06:04 RDW 11.8 % (12.0-15.0) L 12/22/23 06:04 Plt Count 405 10^3/uL (130-450) 12/22/23 06:04 MPV 9.5 fL (7.4-11.4) 12/22/23 06:04 Neut # (Auto) 9.1 10^3/uL (1.5-6.6) H 12/22/23 06:04 Lymph # (Auto) 1.1 10^3/uL (1.5-3.5) L 12/22/23 06:04 [place] # (Auto) 2.4 10^3/uL (0.0-1.0) H 12/22/23 06:04 Eos # (Auto) 0.2 10^3/uL (0.0-0.7) 12/22/23 06:04 Baso # (Auto) 0.1 10^3/uL (0.0-0.1) 12/22/23 06:04 Absolute Nucleated RBC 0.00 x10^3/uL 12/22/23 06:04 Total Counted 100 12/18/23 05:31 Band Neuts % (Manual) Not Reportable 12/21/23 05:31 Reactive Lymphs % (Man) 3 % 12/18/23 05:31 Abnorm Lymph % (Manual) Not Reportable 12/21/23 05:31 Nucleated RBC % 0.0 /100WBC 12/22/23 06:04 Neutrophils # (Manual) Not Reportable 12/21/23 05:31 Lymphocytes # (Manual) Not Reportable 12/21/23 05:31 Monocytes # (Manual) Not Reportable 12/21/23 05:31 Eosinophils # (Manual) Not Reportable 12/21/23 05:31 Basophils # (Manual) Not Reportable 12/21/23 05:31 Differential Comment MANUAL=AUTO DIFF 12/21/23 05:31 Manual Slide Review Indicated 12/22/23 06:04 WBC Morphology NORMAL APPEARANCE (NORMAL) 12/21/23 05:31 Platelet Estimate NORMAL (130-450,000) (NORMAL) 12/22/23 06:04 Platelet Morphology NORMAL APPEARANCE (NORMAL) 12/21/23 05:31 RBC Morph Micro Appear 1+ ANISOCYTOSIS (NORMAL) 12/22/23 06:04 VBG pH 7.207 (7.31-7.41) L 12/16/23 14:14 VBG pCO2 32.5 mmHg (41-51) L 12/16/23 14:14 VBG pO2 66.3 mmHg (25-47) H 12/16/23 14:14 VBG HCO3 12.6 mmol/L (23-28) L 12/16/23 14:14 VBG Total CO2 13.6 mmol/L (24-29) L 12/16/23 14:14 VBG O2 Saturation 92.5 % (60-80) H 12/16/23 14:14 VBG Base Excess -14.1 mmol/L (-2 - +2) L 12/16/23 14:14 Sodium 128 mmol/L (135-145) L 12/22/23 06:04 Potassium 4.3 mmol/L (3.5-4.5) 12/22/23 06:04 Chloride 91 mmol/L (101-111) L 12/22/23 06:04 Carbon Dioxide 30 mmol/L (21-32) 12/22/23 06:04 Anion Gap 7.0 (6-13) 12/22/23 06:04 BUN 15 mg/dL (6-20) 12/22/23 06:04 Creatinine 0.6 mg/dL (0.6-1.3) 12/22/23 06:04 Estimated GFR (MDRD) 137 (>89) 12/22/23 06:04 Glucose 186 mg/dL (74-104) H 12/22/23 06:04 POC Whole Bld Glucose 258 mg/dL (70 - 100) H 12/22/23 20:42 Estimat Average Glucose 324 mg/dL (70-100) H 12/17/23 04:43 Hemoglobin A1c % 12.9 % (4.27-6.07) H 12/17/23 04:43 Calcium 8.2 mg/dL (8.5-10.3) L 12/22/23 06:04 Magnesium 2.0 mg/dL (1.7-2.3) 12/16/23 13:20 Total Bilirubin 0.3 mg/dL (0.2-1.0) 12/16/23 13:20 AST 6 IU/L (10-42) L 12/16/23 13:20 ALT 7 IU/L (10-60) L 12/16/23 13:20 Alkaline Phosphatase 68 IU/L (42-121) 12/16/23 13:20 Troponin I High Sens 4.6 ng/L (2.3-19.7) 12/17/23 04:43 C-Reactive Protein 29.5 mg/dL (<0.5) H 12/22/23 06:04 Total Protein 6.2 g/dL (6.4-8.9) L 12/16/23 13:20 Albumin 2.9 g/dL (3.2-5.5) L 12/16/23 13:20 Globulin 3.3 g/dL (2.1-4.2) 12/16/23 13:20 Albumin/Globulin Ratio 0.9 (1.0-2.2) L 12/16/23 13:20 Triglycerides 135 mg/dL (48-352) 12/17/23 04:43 Cholesterol 150 mg/dL (-200) 12/17/23 04:43 LDL Cholesterol, Calc 92 mg/dL (-129) 12/17/23 04:43 VLDL Cholesterol 27 mg/dL 12/17/23 04:43 HDL Cholesterol 31 mg/dL (60-) L 12/17/23 04:43 LDL/HDL Ratio 3.0 (<3.6) 12/17/23 04:43 Cholesterol/HDL Ratio 4.8 (<5.0) 12/17/23 04:43 Lipase < 10 U/L (11-82) L 12/16/23 13:20 Vitamin B12 713 pg/mL (180-914) 12/17/23 04:43 Vitamin D 25-Hydroxy 10.3 ng/mL (30.0-100.0) L 12/16/23 13:20 Serum Ketones SMALL (NEGATIVE) H 12/16/23 13:20 - Procedures Procedures: Procedures DETACHMENT AT LEFT 2ND TOE, COMPLETE, OPEN APPROACH (03/11/16) DETACHMENT AT LEFT 4TH TOE, COMPLETE, OPEN APPROACH (02/07/21) DETACHMENT AT LEFT 5TH TOE, COMPLETE, OPEN APPROACH (04/30/17) DETACHMENT AT RIGHT 1ST TOE, HIGH, OPEN APPROACH (10/20/16) DETACHMENT AT RIGHT 5TH TOE, COMPLETE, OPEN APPROACH (06/05/18) EXCIS DEBRIDE OF WOUND, INFECT, OR BURN (02/19/15) EXCISION OF RIGHT METATARSAL, OPEN APPROACH (06/05/18) RESECTION OF LEFT METATARSAL, OPEN APPROACH (01/05/19) VENOUS CATHETERIZATION NEC (02/19/15) Sepsis Event Note (H) - Evaluation Current Stage of Sepsis: Ruled out ABX Reporting Has patient been on IV antibiotics over the past 48 hours?: Yes Current Medications - Current Medications Current Medications: Active Medications Acetaminophen (Acetaminophen 325 Mg Tablet) 650 mg PO Q4HR PRN PRN Reason: Pain 1 to 4, or Fever Last Admin: 12/22/23 21:40 Dose: 650 mg Albuterol/Ipratropium (Ipratropium/Albuterol 3 Ml Neb) 3 ml INH RTQID PRN PRN Reason: Shortness of Air/Wheezing Last Admin: 12/22/23 16:37 Dose: 3 ml Amlodipine Besylate (Amlodipine 5 Mg Tablet) 10 mg PO DAILY [facility] Last Admin: 12/22/23 08:16 Dose: 10 mg Calcium Carbonate/Glycine (Calcium Carbonate Chew 500 Mg Tablet) 500 mg PO BID [facility] Last Admin: 12/22/23 21:35 Dose: 500 mg Enoxaparin Sodium (Enoxaparin 40 Mg/0.4 Ml Syringe) 40 mg SUBQ DAILY [facility] Last Admin: 12/22/23 09:02 Dose: Not Given Gabapentin (Gabapentin 300 Mg Capsule) 600 mg PO BID [facility] Last Admin: 12/22/23 21:35 Dose: 600 mg Insulin Glargine-yfgn (Insulin Glargine-Yfgn 300 Unit/3 Ml Pen) 46 unit SUBQ QPM [facility] Last Admin: 12/22/23 21:35 Dose: 46 unit Insulin Human Lispro (Insulin Lispro 300 Unit/3 Ml Pen) 10 unit SUBQ TIDWM [facility] Last Admin: 12/22/23 17:55 Dose: 10 unit Insulin Human Lispro (Insulin Lispro 300 Unit/3 Ml Pen) 0 unit SUBQ 0800,1200,1700,2100 [facility]; Protocol Last Admin: 12/22/23 21:36 Dose: 5 unit Losartan Potassium (Losartan 50 Mg Tablet) 100 mg PO DAILY [facility] Last Admin: 12/22/23 08:15 Dose: 100 mg Multivitamins/Minerals (Multivitamin W/Minerals Tablet) 1 tab PO DAILYWM [facility] Last Admin: 12/22/23 08:10 Dose: 1 tab Ondansetron HCl (Ondansetron Odt 4 Mg Tablet) 4 mg TL Q6HR PRN PRN Reason: Nausea / Vomiting Ondansetron HCl (Ondansetron 4 Mg/2 Ml Vial) 4 mg IVP Q6HR PRN PRN Reason: Nausea / Vomiting Last Admin: 12/16/23 21:29 Dose: 4 mg Oxycodone HCl (Oxycodone 5 Mg Tablet) 5 mg PO Q4HR PRN PRN Reason: Pain 5 to 7 Last Admin: 12/22/23 21:40 Dose: 5 mg Polyethylene Glycol (Polyethylene Glycol 3350 17 Gm Packet) 17 gm PO DAILY [facility] Last Admin: 12/22/23 09:02 Dose: Not Given Sodium Chloride (Sodium Chloride Flush 0.9% 10 Ml Syringe) 10 ml IVP 0100,0900,1700 [facility] Last Admin: 12/22/23 17:56 Dose: 10 ml Sodium Chloride (Sodium Chloride Flush 0.9% 10 Ml Syringe) 10 ml IVP PRN PRN PRN Reason: NEEDED PER PROVIDER ORDERS Last Admin: 12/21/23 18:05 Dose: 10 ml Zolpidem Tartrate (Zolpidem 5 Mg Tablet) 5 mg PO QPM PRN PRN Reason: Insomnia Last Admin: 12/21/23 22:57 Dose: 5 mg Liraglutide [Victoza 2-Florian] 1.8 mg SUBQ DAILY 05/13/18 metFORMIN [Glucophage] 1,000 mg PO BIDWM 09/29/18 Gabapentin [Neurontin] 1,200 mg PO BID 02/05/21 Losartan Potassium [Cozaar] 100 mg PO DAILY 02/05/21
[2023-12-23 06:05] LABS: BASOPHILS # (AUTO) 0.1 10^3/uL (0.0-0.1); BASOPHILS % (AUTO) 0.4 %; EOSINOPHILS # (AUTO) 0.2 10^3/uL (0.0-0.7); EOSINOPHILS % (AUTO) 1.3 %; HCT - HEMATOCRIT 31.7 % (42.0-52.0); HGB - HEMOGLOBIN 10.5 g/dL (14.0-18.0); LYMPHOCYTES # (AUTO) 1.1 10^3/uL (1.5-3.5); LYMPHOCYTES % (AUTO) 7.9 %; MEAN CORPUSCULAR HEMOGLOBIN 31.6 pg (27.0-31.0); MEAN CORPUSCULAR HGB CONC 33.1 g/dL (32.0-36.0); MEAN CORPUSCULAR VOLUME 95.5 fL (80.0-94.0); MEAN PLATELET VOLUME 9.2 fL (7.4-11.4); MONOCYTES # (AUTO) 2.5 10^3/uL (0.0-1.0); MONOCYTES % (AUTO) 18.4 %; NEUTROPHILS # (AUTO) 9.7 10^3/uL (1.5-6.6); PLT - PLATELET COUNT 481 10^3/uL (130-450); RED BLOOD COUNT 3.32 10^6/uL (4.70-6.10); RED CELL DISTRIBUTION WIDTH 11.7 % (12.0-15.0); WHITE BLOOD COUNT 13.7 x10^3/uL (4.8-10.8)
[2023-12-23 06:32] LABS: CALCIUM 8.2 mg/dL (8.5-10.3); CREATININE 0.7 mg/dL (0.6-1.3); POTASSIUM 4.3 mmol/L (3.5-4.5)
[2023-12-23 06:44] LABS: SLIDE REVIEW? Indicated
[2023-12-23 07:10] LABS: PLATELET ESTIMATE, MANUAL INCREASED (>450,000) (NORMAL); RBC MORPHOLOGY (MULTIPLE) 1+ ANISOCYTOSIS (NORMAL)
[2023-12-23] MEDS ORDERED: INSULIN NPH HUMAN 100 UNIT/1 ML 10 ML MDV SUBQ SCH (08:00)
--- NOTE | 2023-12-23 13:32 | PROVIDER PROGRESS NOTE ---
Subjective - Prog Note Date Prog Note Date: 12/23/23 Prog Note Time: 13:30 - Subjective Pt reports feeling: Improved Current Medications - Current Medications Current Medications: Active Medications Acetaminophen (Acetaminophen 325 Mg Tablet) 650 mg PO Q4HR PRN PRN Reason: Pain 1 to 4, or Fever Last Admin: 12/23/23 08:46 Dose: 650 mg Albuterol/Ipratropium (Ipratropium/Albuterol 3 Ml Neb) 3 ml INH RTQID PRN PRN Reason: Shortness of Air/Wheezing Last Admin: 12/22/23 16:37 Dose: 3 ml Amlodipine Besylate (Amlodipine 5 Mg Tablet) 10 mg PO DAILY [facility] Last Admin: 12/23/23 08:46 Dose: 10 mg Calcium Carbonate/Glycine (Calcium Carbonate Chew 500 Mg Tablet) 500 mg PO BID [facility] Last Admin: 12/23/23 08:48 Dose: Not Given Enoxaparin Sodium (Enoxaparin 40 Mg/0.4 Ml Syringe) 40 mg SUBQ DAILY [facility] Last Admin: 12/23/23 08:48 Dose: Not Given Gabapentin (Gabapentin 300 Mg Capsule) 600 mg PO BID [facility] Last Admin: 12/23/23 08:49 Dose: Not Given Insulin Human Lispro (Insulin Lispro 300 Unit/3 Ml Pen) 10 unit SUBQ TIDWM [facility] Last Admin: 12/23/23 12:03 Dose: 10 unit Insulin Human Lispro (Insulin Lispro 300 Unit/3 Ml Pen) 0 unit SUBQ 0800, 1200,1700,2100 [facility]; Protocol Last Admin: 12/23/23 12:04 Dose: 5 unit Losartan Potassium (Losartan 50 Mg Tablet) 100 mg PO DAILY [facility] Last Admin: 12/23/23 08:46 Dose: 100 mg Multivitamins/Minerals (Multivitamin W/Minerals Tablet) 1 tab PO DAILYWM [facility] Last Admin: 12/23/23 08:48 Dose: Not Given Ondansetron HCl (Ondansetron Odt 4 Mg Tablet) 4 mg TL Q6HR PRN PRN Reason: Nausea / Vomiting Ondansetron HCl (Ondansetron 4 Mg/2 Ml Vial) 4 mg IVP Q6HR PRN PRN Reason: Nausea / Vomiting Last Admin: 12/16/23 21:29 Dose: 4 mg Oxycodone HCl (Oxycodone 5 Mg Tablet) 5 mg PO Q4HR PRN PRN Reason: Pain 5 to 7 Last Admin: 12/23/23 08:46 Dose: 5 mg Polyethylene Glycol (Polyethylene Glycol 3350 17 Gm Packet) 17 gm PO DAILY [facility] Last Admin: 12/23/23 08:49 Dose: Not Given Sodium Chloride (Sodium Chloride Flush 0.9% 10 Ml Syringe) 10 ml IVP 0100,0900,1700 [facility] Last Admin: 12/23/23 08:51 Dose: 10 ml Sodium Chloride (Sodium Chloride Flush 0.9% 10 Ml Syringe) 10 ml IVP PRN PRN PRN Reason: NEEDED PER PROVIDER ORDERS Last Admin: 12/21/23 18:05 Dose: 10 ml Zolpidem Tartrate (Zolpidem 5 Mg Tablet) 5 mg PO QPM PRN PRN Reason: Insomnia Last Admin: 12/21/23 22:57 Dose: 5 mg Liraglutide [Victoza 2-Florian] 1.8 mg SUBQ DAILY 05/13/18 metFORMIN [Glucophage] 1,000 mg PO BIDWM 09/29/18 Gabapentin [Neurontin] 1,200 mg PO BID 02/05/21 Losartan Potassium [Cozaar] 100 mg PO DAILY 02/05/21 Objective - Vital Signs/Intake & Output Vital Signs: Vital Signs - 24 hr 12/22/23 12/22/23 12/22/23 16:00 16:26 16:38 Temperature 37.5 C 37.6 C Heart Rate 88 Heart Rate [ 89 Brachial] Respiratory 16 20 Rate Blood Pressure 116/56 L [Right Brachial artery] O2 Saturation 90 L 12/23/23 12/23/23 00:00 07:35 Temperature 36.8 C 36.8 C Heart Rate Heart Rate [ 76 93 Brachial] Respiratory 18 18 Rate Blood Pressure 115/64 141/66 H [Right Brachial artery] O2 Saturation 97 92 Oxygen O2 Source Room air Intake & Output: Intake & Output 12/20/23 12/21/23 12/22/23 12/23/23 22:59 23:59 23:59 23:59 Intake Total 1720 477 Balance 1720 477 - Objective General Appearance: positive: No acute distress, Alert Eyes Bilateral: positive: Normal inspection Respiratory: positive: No respiratory distress Cardiovascular: positive: Regular rate & rhythm Abdomen: positive: Non-tender Skin: positive: Color nml Neurologic/Psychiatric: positive: Oriented x3 - Lab Results Fish Bones: 12/23/23 05:31 12/23/23 05:31 Other Labs: Lab Results x24hrs 12/23/23 12/23/23 12/23/23 Range/Units 11:58 07:36 05:31 WBC (4.8-10.8) x10^3/uL RBC (4.70-6.10) 10^6/uL Hgb (14.0-18.0) g/dL Hct (42.0-52.0) % MCV (80.0-94.0) fL MCH (27.0-31.0) pg MCHC (32.0-36.0) g/dL RDW (12.0-15.0) % Plt Count (130-450) 10^3/uL MPV (7.4-11.4) fL Neut # (Auto) (1.5-6.6) 10^3/uL Lymph # (Auto) (1.5-3.5) 10^3/uL [place] # (Auto) (0.0-1.0) 10^3/uL Eos # (Auto) (0.0-0.7) 10^3/uL Baso # (Auto) (0.0-0.1) 10^3/uL Absolute Nucleated RBC x10^3/uL Nucleated RBC % /100WBC Manual Slide Review Platelet Estimate (NORMAL) RBC Morph Micro Appear (NORMAL) Sodium 129 L (135-145) mmol/L Potassium 4.3 (3.5-4.5) mmol/L Chloride 93 L (101-111) mmol/L Carbon Dioxide 30 (21-32) mmol/L Anion Gap 6.0 (6-13) BUN 14 (6-20) mg/dL Creatinine 0.7 (0.6-1.3) mg/dL Estimated GFR (MDRD) 115 (>89) Glucose 119 H (74-104) mg/dL POC Whole Bld Glucose 244 H 91 (70 - 100) mg/dL Calcium 8.2 L (8.5-10.3) mg/dL 12/23/23 12/22/23 12/22/23 Range/Units 05:31 20:42 16:04 WBC 13.7 H (4.8-10.8) x10^3/uL RBC 3.32 L (4.70-6.10) 10^6/uL Hgb 10.5 L (14.0-18.0) g/dL Hct 31.7 L (42.0-52.0) % MCV 95.5 H (80.0-94.0) fL MCH 31.6 H (27.0-31.0) pg MCHC 33.1 (32.0-36.0) g/dL RDW 11.7 L (12.0-15.0) % Plt Count 481 H (130-450) 10^3/uL MPV 9.2 (7.4-11.4) fL Neut # (Auto) 9.7 H (1.5-6.6) 10^3/uL Lymph # (Auto) 1.1 L (1.5-3.5) 10^3/uL [place] # (Auto) 2.5 H (0.0-1.0) 10^3/uL Eos # (Auto) 0.2 (0.0-0.7) 10^3/uL Baso # (Auto) 0.1 (0.0-0.1) 10^3/uL Absolute Nucleated RBC 0.00 x10^3/uL Nucleated RBC % 0.0 /100WBC Manual Slide Review Indicated Platelet Estimate INCREASED (>450,000) (NORMAL) RBC Morph Micro Appear 1+ ANISOCYTOSIS (NORMAL) Sodium (135-145) mmol/L Potassium (3.5-4.5) mmol/L Chloride (101-111) mmol/L Carbon Dioxide (21-32) mmol/L Anion Gap (6-13) BUN (6-20) mg/dL Creatinine (0.6-1.3) mg/dL Estimated GFR (MDRD) (>89) Glucose (74-104) mg/dL POC Whole Bld Glucose 258 H 170 H (70 - 100) mg/dL Calcium (8.5-10.3) mg/dL 12/22/23 Range/Units 07:43 WBC (4.8-10.8) x10^3/uL RBC (4.70-6.10) 10^6/uL Hgb (14.0-18.0) g/dL Hct (42.0-52.0) % MCV (80.0-94.0) fL MCH (27.0-31.0) pg MCHC (32.0-36.0) g/dL RDW (12.0-15.0) % Plt Count (130-450) 10^3/uL MPV (7.4-11.4) fL Neut # (Auto) (1.5-6.6) 10^3/uL Lymph # (Auto) (1.5-3.5) 10^3/uL [place] # (Auto) (0.0-1.0) 10^3/uL Eos # (Auto) (0.0-0.7) 10^3/uL Baso # (Auto) (0.0-0.1) 10^3/uL Absolute Nucleated RBC x10^3/uL Nucleated RBC % /100WBC Manual Slide Review Platelet Estimate (NORMAL) RBC Morph Micro Appear (NORMAL) Sodium (135-145) mmol/L Potassium (3.5-4.5) mmol/L Chloride (101-111) mmol/L Carbon Dioxide (21-32) mmol/L Anion Gap (6-13) BUN (6-20) mg/dL Creatinine (0.6-1.3) mg/dL Estimated GFR (MDRD) (>89) Glucose (74-104) mg/dL POC Whole Bld Glucose 144 H (70 - 100) mg/dL Calcium (8.5-10.3) mg/dL Sepsis Event Note (H) - Evaluation Current Stage of Sepsis: Ruled out Assessment/Plan - Problem List (1) Pneumonia Impression: Qualifiers: Pneumonia type: due to unspecified organism Laterality: right Lung location: lower lobe of lung Qualified Code(s): J18.9 - Pneumonia, unspecified organism Assessment/Plan: , Loculated right middle lobe pneumonia pleural effusion Discussed with radiologist Dr. Waters, who recommended for ultrasound exam to see if it is possible for a drainage Ultrasound did detected a long loculated pleural effusion however not enough for drainage Completed IV antibiotics ceftriaxone december 20February, monitor white cell count and CRP, follow up in the next 2-3 weeks for x-ray, consider discharge tomorrow (2) Secondary DM with DKA, uncontrolled Assessment/Plan: DKA resolved, blood sugar improved, may consider discharge on 70/30 insulin for better compliance (3) Chest pain, pleuritic Assessment/Plan: Secondary to pleural effusion/pneumonia Completed treatment with antibiotic on december 20 (4) Diabetic neuropathy Qualifiers: Diabetes mellitus type: type 2 Assessment/Plan: Continue with gabapentin (5) HTN (hypertension) Qualifiers: Assessment/Plan: Stable, continue current regimen Qualifiers: Pneumonia type: due to unspecified organism Laterality: right Lung location: lower lobe of lung Qualified Code(s): J18.9 - Pneumonia, unspecified organism
[2023-12-23] MEDS: INSULIN GLARGINE-YFGN 300 UNIT/3 ML PEN SUBQ SCH (21:56)
[2023-12-24 06:23] LABS: BASOPHILS # (AUTO) 0.1 10^3/uL (0.0-0.1); BASOPHILS % (AUTO) 0.4 %; EOSINOPHILS # (AUTO) 0.3 10^3/uL (0.0-0.7); EOSINOPHILS % (AUTO) 1.9 %; HCT - HEMATOCRIT 30.3 % (42.0-52.0); HGB - HEMOGLOBIN 10.1 g/dL (14.0-18.0); LYMPHOCYTES # (AUTO) 1.1 10^3/uL (1.5-3.5); LYMPHOCYTES % (AUTO) 8.3 %; MEAN CORPUSCULAR HGB CONC 33.3 g/dL (32.0-36.0); MEAN CORPUSCULAR VOLUME 95.9 fL (80.0-94.0); MEAN PLATELET VOLUME 9.1 fL (7.4-11.4); MONOCYTES # (AUTO) 2.1 10^3/uL (0.0-1.0); MONOCYTES % (AUTO) 15.7 %; NEUTROPHILS # (AUTO) 9.9 10^3/uL (1.5-6.6); NEUTROPHILS % (AUTO) 72.9 %; PLT - PLATELET COUNT 540 10^3/uL (130-450); RED BLOOD COUNT 3.16 10^6/uL (4.70-6.10); RED CELL DISTRIBUTION WIDTH 11.6 % (12.0-15.0); WHITE BLOOD COUNT 13.5 x10^3/uL (4.8-10.8)
[2023-12-24 06:28] LABS: SLIDE REVIEW? Indicated
[2023-12-24 07:01] LABS: CALCIUM 8.1 mg/dL (8.5-10.3); CREATININE 0.6 mg/dL (0.6-1.3); POTASSIUM 4.7 mmol/L (3.5-4.5)
[2023-12-24 07:21] LABS: PLATELET ESTIMATE, MANUAL INCREASED (>450,000) (NORMAL); PLATELET MORPHOLOGY NORMAL APPEARANCE (NORMAL); RBC MORPHOLOGY (MULTIPLE) NORMAL APPEARANCE (NORMAL)
[2023-12-24 08:29] VITALS: BP 130/71; O2SAT 95
--- NOTE | 2023-12-24 11:01 | Discharge Plan ---
Discharge Plan Problem Reviewed?: Yes Disposition: Home Health Service Condition: Stable Prescriptions: Losartan [Cozaar] 100 mg PO DAILY #60 tab metFORMIN [Glucophage] 1,000 mg PO BIDWM #60 tab Meloxicam [Mobic] 7.5 mg PO BID 10 Days #20 tablet Gabapentin [Neurontin] 1,200 mg PO BID #240 cap Nifedipine [Procardia Xl] 60 mg PO DAILY #30 tab Liraglutide [Victoza 2-Florian] 1.8 mg SUBQ DAILY 30 Days #9 ml Diet: Diabetic Activity Restrictions: Activity as Tolerated Shower Restrictions: No Driving Restrictions: Yes (no driving) Assistance Devices: [facility] Concerns: You are a 58-year-old gentleman who has a history of diabetes, high blood pressure, high cholesterol. You have a history of multiple admissions and multiple ER visits because of complications of your diabetes. You came to the emergency room because you are having chest pain with difficulty breathing. You were short of breath, coughing, but you did not have any fevers. We also found you to have a very high glucose to 475. You had a small amount of ketones in your blood. You were treated as pneumonia and diabetic ketoacidosis. Plan of Treatment: 1. You completed your pneumonia treatment on December 20. You do not need any more antibiotics. 2. We recognize that managing your diabetes is a very complicated problem for you at home. We tried to change you to a different insulin while you are here but that insulin is not carried in the hospital by our pharmacy. So we are sending you home on a new insulin to try and see if it will simplify how you take your medications. -Continue taking your lispro before each meal. Aim for a set amount of 7 units before each meal. -Stop your Lantus and switch to NPH. Take NPH 30 units in the morning and 10 units at night before dinner. Increase either the morning or the evening dose over the next few days to see if that can control your sugar better. -If you are still on Victoza, continue to take your Victoza. 3. Please see your primary care provider in follow-up in the next week. They need to go over your insulin. Make sure you keep a diary where you check your sugars before breakfast and before dinner. That will at least help guide you on how to take your insulin. I would recommend that you see your primary care provider no less than every 3 months. You last saw them in January 2023. At that time you saw a Es Hung. Then you were a no-show for 3 appointments. As such, they are not giving you any of your medication to refill until you see them again. 4. I am going to go ahead and give you prescriptions for a month. Hopefully that will give you enough time to get into see your primary care provider and reestablish care. The pharmacist did try and work with you on your medication list but you were very reticent and wanting to speak to them. You did not want to share with them what medications you were taking at home. From what I can tell in your office records you are supposed to be on: -Losartan 100 mg a day -Metformin 1000 mg twice a day -Lispro short acting insulin on a sliding scale before each meal -Mobic 7.5 mg twice a day no more than 10 days at a time -Gabapentin 1200 mg twice a day -Amlodipine (Norvasc) 10 mg once a day -Victoza once a week -Lantus 40 units at bedtime You are not on any controlled substances because you have not followed up with seeing the doctor. As such you oxycodone and acetaminophen have not been refilled for quite some time. Amlodipine is no longer covered by your insurance and they have asked me to substitute nifedipine extended release. As such I am changing your amlodipine to nifedipine 60 mg once daily. As already stated I have stopped her Lantus and I am switching you to NPH. Otherwise I have refilled your losartan, metformin, Mobic, gabapentin. I also want you to take a calcium tablet every day, and a multivitamin tablet every day. Care Goals: To reduce the amount of time he have to come to the hospital because of emergencies. That means stabilizing your overall health care status with regular diet, regular exercise, and regular use of your medications. Assessment: Patient is alert and oriented to person, place, time, and situation. No Smoking: If you smoke, Please STOP! Call for help. Follow-up with: Rayna Gibson PA-C [Provider Admit Priv/Credential] -
--- NOTE | 2023-12-24 11:32 | DISCHARGE SUMMARY ---
Discharge Summary Admit Date: 12/16/23 Discharge Date: 12/24/23 Discharging Provider: Lyn Gunn MD Primary Care Provider: Rayna Gibson PA-C Code Status: Attempt Resuscitation Condition at Discharge: Stable Discharge Disposition: 06 [facility] - DIAGNOSES Discharge Diagnoses with Status of Each Condition: 1. Pneumonia 2. Type 2 diabetes mellitus with DKA, uncontrolled 3. Pleuritic chest pain 4. Diabetic neuropathy 5. Hypertension 6. Noncompliance with medication - HPI History of Present Illness: A 58yo M with hx of DM complicated with peripheral neuropathy, DM foot infection, HTN, HLD, noncompliance Presented to ED for chest pain, nausea, abdominal pain. Patient reports his chest pain for about 10 days, it is nagging, intermittent pain, localized on left side. worsen when taking deep breath, or any movement, Denies fever or chills, no cough or runny nose. But overall unwell feeling. In the past few days, he started to have nausea, abdominal pain. He states he is not compliant with insulin use, especially the short acting insulin makes him sick. He came to the ED on 12/15/2023, Had CT chest, showed right lower lobe loculated effusion. ED provider discussed with radiologist, no indication for draining or other intervention. Mild ketosis noted on labs, patient improved with fluid, sq insulin and albuterol treatment. Patient was sent home on insulin. Today, patient returned to ED, with worsening unwell feeling and nausea, abdominal pain. In the ED, his VSS, elevated Bp noted, Lab shows WBC 14.8, Na 128, K 5.1, Bicab 11, AG 22, pH 7.2 , small keton, lipase negative. CXR: stable right lower lobe opacity. Patient was given fluid, admitted to [facility] - Past Medical History Cardiovascular: reports: Hypertension, High cholesterol Respiratory: reports: None Neuro: reports: Peripheral neuropathy Endocrine/Autoimmune: reports: Type 2 diabetes GI: reports: None : reports: None HEENT: reports: None Psych: reports: None Musculoskeletal: reports: Other Derm: reports: None MRSA Hx?: No - Past Surgical History General: reports: Appendectomy Ortho: reports: Amputation - HOSPITAL COURSE Hospital Course: The patient was treated for pneumonia, his DKA. These were progression brought under control. Patient did not have a white cell count, hypoxemia. At discharge his potassium was mildly elevated so he received 1 dose of Lokelma before discharge. He is otherwise ambulating in his room, eating his meals. It is clear that he has a disjointed self-care program at home. Not compliant with his visits to his primary care provider and last seen in March 2023. He did not want to discuss his medication list with the pharmacist so we are unclear about what his renal medication list is. But he states that he has enough lispro and Lantus at home to last him. In an effort to improve his regimen, I discontinued Lantus and is switched him to NPH 30 in the morning, and 15 units at night. And I am asking him to give himself 7 units of lispro with each meal. Try to check his sugars before each meal but I understand that he is most likely not going to. But at least try and keep a minimal diary so we can share that with his PCP. Instructions to the patient are as below. 1. You completed your pneumonia treatment on December 20. You do not need any more antibiotics. 2. We recognize that managing your diabetes is a very complicated problem for you at home. We tried to change you to a different insulin while you are here but that insulin is not carried in the hospital by our pharmacy. So we are sending you home on a new insulin to try and see if it will simplify how you take your medications. -Continue taking your lispro before each meal. Aim for a set amount of 7 units before each meal. -Stop your Lantus and switch to NPH. Take NPH 30 units in the morning and 10 units at night before dinner. Increase either the morning or the evening dose over the next few days to see if that can control your sugar better. -If you are still on Victoza, continue to take your Victoza. 3. Please see your primary care provider in follow-up in the next week. They need to go over your insulin. Make sure you keep a diary where you check your sugars before breakfast and before dinner. That will at least help guide you on how to take your insulin. I would recommend that you see your primary care provider no less than every 3 months. You last saw them in January 2023. At that time you saw a Es Hung. Then you were a no-show for 3 appointments. As such, they are not giving you any of your medication to refill until you see them again. 4. I am going to go ahead and give you prescriptions for a month. Hopefully that will give you enough time to get into see your primary care provider and reestablish care. The pharmacist did try and work with you on your medication list but you were very reticent and wanting to speak to them. You did not want to share with them what medications you were taking at home. From what I can tell in your office records you are supposed to be on: -Losartan 100 mg a day -Metformin 1000 mg twice a day -Lispro short acting insulin on a sliding scale before each meal -Mobic 7.5 mg twice a day no more than 10 days at a time -Gabapentin 1200 mg twice a day -Amlodipine (Norvasc) 10 mg once a day -Victoza once a week -Lantus 40 units at bedtime You are not on any controlled substances because you have not followed up with seeing the doctor. As such you oxycodone and acetaminophen have not been refilled for quite some time. Amlodipine is no longer covered by your insurance and they have asked me to muhammad bstitute nifedipine extended release. As such I am changing your amlodipine to nifedipine 60 mg once daily. As already stated I have stopped her Lantus and I am switching you to NPH. Otherwise I have refilled your losartan, metformin, Mobic, gabapentin. I also want you to take a calcium tablet every day, and a multivitamin tablet every day. At discharge the patient is alert, oriented to person place and time and situation. Temperature is 36.9. Heart rate 72. Blood pressure 130/71. Respirations 20. 95% on room air. He is 6 foot 2 inches tall, 80.5 kg. He appears comfortable. No distress. Neck is supple. Lungs are clear. Regular rate and rhythm. Abdomen is soft, nontender. He is discharged in stable condition Greater than 30 minutes was spent coordinating discharge This document was made in part using voice recognition software. While efforts are made to proofread this document, sound alike and grammatical errors may occur. - ALLERGIES Allergies/Adverse Reactions: Allergies Allergy/AdvReac Type Severity Reaction Status Date / Time No Known Drug Allergies Allergy Verified 12/16/23 12:51 - MEDICATIONS Home Medications: Ambulatory Orders Medication Instructions Recorded Confirmed Losartan Potassium [Cozaar] 100 mg PO DAILY 02/05/21 12/15/23 Insulin Lispro [Humalog] 3 - 12 unit SUBQ TIDWM 30 Days #1 06/28/22 12/15/23 packet Albuterol Sulf [Ventolin Hfa 1 - 2 puffs INH Q4HR PRN #1 each 12/15/23 Inhaler] Calcium Carbonate [Tums (Calcium 500 mg PO BID tab 12/24/23 Carbonate 500mg)] Gabapentin [Neurontin] 1,200 mg PO BID #240 cap 12/24/23 Liraglutide [Victoza 2-Florian] 1.8 mg SUBQ DAILY 30 Days #9 ml 12/24/23 Losartan [Cozaar] 100 mg PO DAILY #60 tab 12/24/23 Meloxicam [Mobic] 7.5 mg PO BID 10 Days #20 tablet 12/24/23 Multivitamin W/Minerals [Theragran 1 tab PO DAILYWM tab 12/24/23 M] Nifedipine [Procardia Xl] 60 mg PO DAILY #30 tab 12/24/23 metFORMIN [Glucophage] 1,000 mg PO BIDWM #60 tab 12/24/23 - LABS Result Diagrams: 12/24/23 05:56 12/24/23 09:03 - SEPSIS Current Stage of Sepsis: Ruled out
[2023-12-24] MEDS: SODIUM ZIRCONIUM CYCLOSILICATE 5 GM PACKET PO ONE (11:57)
== END 2023-12-24 12:10 | disposition home health service (06) | DRG 637 ==
LOC: EDUNIT# → ED 12:41 → MS2 14:31
PROVIDERS: ADMIT Internal Medicine; ATTEND Specialist
DX: E11.10 Type 2 diabetes mellitus with ketoacidosis without coma (principal); J18.9 Pneumonia, unspecified organism; J90 Pleural effusion, not elsewhere classified; R06.02 Shortness of breath; R07.9 Chest pain, unspecified; I10 Essential (primary) hypertension; E11.42 Type 2 diabetes mellitus with diabetic polyneuropathy; E78.00 Pure hypercholesterolemia, unspecified; E87.5 Hyperkalemia; T38.3X6A Underdosing of insulin and oral hypoglycemic [antidiabetic] drugs, initial encounter; D72.829 Elevated white blood cell count, unspecified; E83.51 Hypocalcemia; E11.65 Type 2 diabetes mellitus with hyperglycemia; Z79.4 Long term (current) use of insulin; Z79.84 Long term (current) use of oral hypoglycemic drugs; Z79.899 Other long term (current) drug therapy; Z81.8 Family history of other mental and behavioral disorders; Z82.3 Family history of stroke; Z82.49 Family history of ischemic heart disease and other diseases of the circulatory system; Z83.3 Family history of diabetes mellitus; Z83.49 Family history of other endocrine, nutritional and metabolic diseases; Z87.891 Personal history of nicotine dependence; Z90.49 Acquired absence of other specified parts of digestive tract; Z91.148 Patient's other noncompliance with medication regimen for other reason; Z91.199 Patient's noncompliance with other medical treatment and regimen due to unspecified reason
CPT/HCPCS: 36415; 71045; 71046; 76604; 80048; 80053; 80061; 82009; 82306; 82607; 82803; 83036; 83690; 83735; 84132; 84484; 85025; 86140; 93005; 94640; 96374; 99285; 99291; A9270; J1170; J1650; J1815; 83721

== ENCOUNTER 2024-01-19 10:43 | Emergency (ER) | payer MEDICARE ==
[2024-01-19 11:16] LABS: BASOPHILS # (AUTO) 0.1 10^3/uL (0.0-0.1); BASOPHILS % (AUTO) 0.4 %; EOSINOPHILS # (AUTO) 0.2 10^3/uL (0.0-0.7); EOSINOPHILS % (AUTO) 1.2 %; HGB - HEMOGLOBIN 11.1 g/dL (14.0-18.0); LYMPHOCYTES # (AUTO) 0.8 10^3/uL (1.5-3.5); LYMPHOCYTES % (AUTO) 6.4 %; MEAN CORPUSCULAR HEMOGLOBIN 30.3 pg (27.0-31.0); MEAN CORPUSCULAR HGB CONC 32.6 g/dL (32.0-36.0); MEAN CORPUSCULAR VOLUME 92.9 fL (80.0-94.0); MEAN PLATELET VOLUME 9.8 fL (7.4-11.4); MONOCYTES # (AUTO) 1.4 10^3/uL (0.0-1.0); NEUTROPHILS # (AUTO) 10.5 10^3/uL (1.5-6.6); NEUTROPHILS % (AUTO) 80.5 %; PLT - PLATELET COUNT 513 10^3/uL (130-450); RED BLOOD COUNT 3.66 10^6/uL (4.70-6.10); RED CELL DISTRIBUTION WIDTH 12.7 % (12.0-15.0); WHITE BLOOD COUNT 13.1 x10^3/uL (4.8-10.8)
[2024-01-19 11:23] LABS: KETONES, SERUM (ACETEST) SMALL (NEGATIVE)
[2024-01-19 11:26] LABS: VBG BASE EXCESS -1.8 mmol/L (-2 - +2); VBG HCO3 22.5 mmol/L (23-28); VBG OXYGEN SATURATION 50.6 % (60-80); VBG PCO2 36.6 mmHg (41-51); VBG PH 7.406 (7.31-7.41); VBG PO2 23.4 mmHg (25-47); VBG TOTAL CO2 23.6 mmol/L (24-29)
[2024-01-19 11:30] LABS: LIPASE 10 U/L (11-82)
[2024-01-19 11:31] LABS: ALBUMIN 3.1 g/dL (3.2-5.5); ALBUMIN/GLOBULIN RATIO 0.8 (1.0-2.2); ALKALINE PHOSPHATASE 84 IU/L (42-121); ALT ALANINE AMINOTRANSFERASE 17 IU/L (10-60); AST ASPARTATE AMINOTRANSFERASE 16 IU/L (10-42); BILIRUBIN,TOTAL 0.3 mg/dL (0.2-1.0); BUN - BLOOD UREA NITROGEN 20 mg/dL (6-20); CALCIUM 8.6 mg/dL (8.5-10.3); CARBON DIOXIDE - CO2 23 mmol/L (21-32); CHLORIDE 89 mmol/L (101-111); CREATININE 1.1 mg/dL (0.6-1.3); GFR - MDRD 68 (>89); GLUCOSE 602 mg/dL (74-104); POTASSIUM 4.6 mmol/L (3.5-4.5); SODIUM 125 mmol/L (135-145); TOTAL PROTEIN 6.9 g/dL (6.4-8.9)
[2024-01-19 11:33] LABS: TROPONIN I HIGH SENSITIVITY 6.2 ng/L (2.3-19.7)
--- NOTE | 2024-01-19 11:35 | XRAY Report ---
PROCEDURE: Chest 1V INDICATIONS: CP/SOA TECHNIQUE: One view of the chest was acquired. COMPARISON: 12/21/2023. FINDINGS: Surgical changes and devices: None. Lungs and pleura: Abnormal opacity over the right perihilar midlung. The lungs otherwise appear ritu r. Mediastinum: Mediastinal contours appear normal. Heart size is normal. Bones and chest wall: No suspicious bony lesions. Overlying soft tissues appear unremarkable. IMPRESSION: 1.Abnormal opacity over the right perihilar midlung, may represent loculated pleural effusions as see n on prior CT scan. 2.The lungs otherwise appear grossly clear. Reviewed by: Miguel Angel Young MD on 01/19/2024 11:34 AM PDT Approved by: Miguel Angel Young MD on 01/19/2024 11:34 AM PDT Station ID: [id number]
[2024-01-19] MEDS: SODIUM CHLORIDE 0.9% 1,000 ML IV STA (11:37)
--- NOTE | 2024-01-19 12:34 | ED Physician Documentation ---
History of Present Illness - Stated complaint Stated Complaint: SOA,CHEST PX - Chief complaint Chief Complaint: Cardiac - History obtained from History obtained from: Patient - Additonal information Additional information: Patient is a 58-year-old male with a history of insulin-dependent diabetes presenting for evaluation of feeling chest pain and shortness of air since recent discharge from the hospital where he was treated for DKA and pneumonia. He was found to have a right loculated pleural effusion and IR did attempt to drain this but was unable to get any adequate specimen of fluid. Patient states he has never felt better since he was in the hospital. He states that he was at work today and felt like he could not catch his breath prompting him to come to the emergency department. He has not been compliant with his short acting insulin but has been using his long-acting. He is concerned about using the short acting as he feels like it bottomed him out. He has not tried to make a f ollow-up appointment with his PCP. He has been able to tolerate p.o. intake and had a peanut butter and jelly sandwich this morning. No vomiting or diarrhea. He reports having a continued cough with no sputum production. He reports the pain is in the middle of his chest and felt like a tightness. Review of Systems Constitutional: denies: Fever Cardiac: reports: Chest pain / pressure Respiratory: reports: Dyspnea, Cough GI: denies: Abdominal Pain, Vomiting, Diarrhea : denies: Dysuria PD PAST MEDICAL HISTORY - Past Medical History Past Medical History: Yes Cardiovascular: Hypertension, High cholesterol Respiratory: None Neuro: Peripheral neuropathy Endocrine/Autoimmune: Type 2 diabetes GI: None : None HEENT: None Psych: None Musculoskeletal: Other Derm: None - Past Surgical History Past Surgical History: Yes General: Appendectomy Ortho: Amputation - Present Medications Home Medications: Ambulatory Orders Medication Instructions Recorded Confirmed Insulin Lispro [Humalog] 3 - 12 unit SUBQ TIDWM 30 Days #1 06/28/22 01/19/24 packet Albuterol Sulf [Ventolin Hfa 1 - 2 puffs INH Q4HR PRN #1 each 12/15/23 01/19/24 Inhaler] Calcium Carbonate [Tums (Calcium 500 mg PO BID tab 12/24/23 01/19/24 Carbonate 500mg)] Gabapentin [Neurontin] 1,200 mg PO BID #240 cap 12/24/23 01/19/24 Liraglutide [Victoza 2-Florian] 1.8 mg SUBQ DAILY 30 Days #9 ml 12/24/23 01/19/24 Losartan [Cozaar] 100 mg PO DAILY #60 tab 12/24/23 01/19/24 Meloxicam [Mobic] 7.5 mg PO BID 10 Days #20 tablet 12/24/23 01/19/24 Multivitamin W/Minerals [Theragran 1 tab PO DAILYWM tab 12/24/23 01/19/24 M] metFORMIN [Glucophage] 1,000 mg PO BIDWM #60 tab 12/24/23 01/19/24 Amox/Clav 875/125 [Augmentin] 1 each PO Q12H #14 tablet 01/19/24 Azithromycin [Zithromax] 1 tab PO DAILY #4 tab 01/19/24 - Allergies Allergies/Adverse Reactions: Allergies Allergy/AdvReac Type Severity Reaction Status Date / Time No Known Drug Allergies Allergy Verified 01/19/24 10:56 - Social History Does the pt smoke?: No Smoking Status: Never smoker Does the pt drink ETOH?: Yes Does the pt have substance abuse?: No - Immunizations Immunizations are current?: Yes - POLST Patient has POLST: No POLST Status: Full Code PD ED PE NORMAL - General General: Alert and oriented X 3, No acute distress, Well developed/nourished - HEENT HEENT: Atraumatic - Neck Neck: Supple, no meningeal sign - Cardiac Cardiac: RRR, Strong equal pulses - Respiratory Respiratory: No respiratory distress, Clear bilaterally - Abdomen Abdomen: Normal bowel sounds, Soft, Non tender, Non distended - Derm Derm: Warm and dry - Extremities Extremities: No calf tenderness / cord - Neuro Neuro: Alert and oriented X 3, No motor deficit, Normal speech Results - Vitals Vitals: Vital Signs - 24 hr 01/19/24 01/19/24 01/19/24 10:53 10:56 11:06 Temperature 36.1 C L Heart Rate 91 87 Respiratory 20 18 Rate Blood Pressure 167/88 H 175/74 H Blood Pressure 144/80 H [Left] O2 Saturation 99 99 01/19/24 01/19/24 12:56 14:09 Temperature Heart Rate 87 82 Respiratory 16 18 Rate Blood Pressure 172/75 H 142/84 H Blood Pressure [Left] O2 Saturation 99 98 Oxygen O2 Source Room air - EKG (time done) 1111 EKG releavant findings:: EKG personally interpreted by author of this note. Relevant findings are: Rate 80, NSR, no STEMI, [id number] - Labs Labs: Laboratory Tests 01/19/24 01/19/24 01/19/24 11:00 11:00 11:00 WBC 13.1 H RBC 3.66 L Hgb 11.1 L Hct 34.0 L MCV 92.9 MCH 30.3 MCHC 32.6 RDW 12.7 Plt Count 513 H MPV 9.8 Neut # (Auto) 10.5 H Lymph # (Auto) 0.8 L [place] # (Auto) 1.4 H Eos # (Auto) 0.2 Baso # (Auto) 0.1 Absolute Nucleated RBC 0.00 Nucleated RBC % 0.0 D-Dimer < 200.0 L VBG pH VBG pCO2 VBG pO2 VBG HCO3 VBG Total CO2 VBG O2 Saturation VBG Base Excess Sodium 125 L Potassium 4.6 H Chloride 89 L Carbon Dioxide 23 Anion Gap 13.0 BUN 20 Creatinine 1.1 Estimated GFR (MDRD) 68 L Glucose 602 H* Calcium 8.6 Total Bilirubin 0.3 AST 16 ALT 17 Alkaline Phosphatase 84 Troponin I High Sens 6.2 Total Protein 6.9 Albumin 3.1 L Globulin 3.8 Albumin/Globulin Ratio 0.8 L Lipase 10 L Urine Color Urine Clarity Urine pH Ur Specific [place] Urine Protein Urine Glucose (UA) Urine Ketones Urine Occult Blood Urine Nitrite Urine Bilirubin Urine Urobilinogen Ur Leukocyte Esterase Urine RBC Urine WBC Ur Squamous Epith Cells Urine Bacteria Urine Casts Ur Microscopic Review Urine Culture Comments Nasal Adenovirus (PCR) Nasal B. parapertussis DNA (PCR) Nasal Coronavir 229E PCR Nasal Coronavir HKU1 PCR Nasal Coronavir NL63 PCR Nasal Coronavir OC43 PCR Nasal Enterovir/Rhinovir PCR Nasal Influenza B PCR Nasal Influenza A PCR Nasal Parainfluen 1 PCR Nasal Parainfluen 2 PCR Nasal Parainfluen 3 PCR Nasal Parainfluen 4 PCR Nasal RSV (PCR) Nasal B.pertussis DNA PCR Nasal C.pneumoniae (PCR) Joseph Human Metapneumo PCR Nasal M.pneumoniae (PCR) Nasal SARS-CoV-2 (PCR) Serum Ketones SMALL H 01/19/24 01/19/24 01/19/24 11:21 12:23 12:42 WBC RBC Hgb Hct MCV MCH MCHC RDW Plt Count MPV Neut # (Auto) Lymph # (Auto) [place] # (Auto) Eos # (Auto) Baso # (Auto) Absolute Nucleated RBC Nucleated RBC % D-Dimer VBG pH 7.406 VBG pCO2 36.6 L VBG pO2 23.4 L VBG HCO3 22.5 L VBG Total CO2 23.6 L VBG O2 Saturation 50.6 L VBG Base Excess -1.8 Sodium Potassium Chloride Carbon Dioxide Anion Gap BUN Creatinine Estimated GFR (MDRD) Glucose Calcium Total Bilirubin AST ALT Alkaline Phosphatase Troponin I High Sens Total Protein Albumin Globulin Albumin/Globulin Ratio Lipase Urine Color YELLOW Urine Clarity CLEAR Urine pH 6.0 Ur Specific [place] 1.010 Urine Protein 100 H Urine Glucose (UA) >=1000 H Urine Ketones 40 H Urine Occult Blood TRACE-INTA Urine Nitrite NEGATIVE Urine Bilirubin MODERATE H Urine Urobilinogen 0.2 (NORMAL) Ur Leukocyte Esterase NEGATIVE Urine RBC 0-5 Urine WBC 0-3 Ur Squamous Epith Cells RARE Squamous Urine Bacteria Few Urine Casts 0-2 Granular Casts Ur Microscopic Review INDICATED Urine Culture Comments NOT INDICATED Nasal Adenovirus (PCR) NOT DETECTED Nasal B. parapertussis DNA (PCR) NOT DETECTED Nasal Coronavir 229E PCR NOT DETECTED Nasal Coronavir HKU1 PCR NOT DETECTED Nasal Coronavir NL63 PCR NOT DETECTED Nasal Coronavir OC43 PCR NOT DETECTED Nasal Enterovir/Rhinovir PCR NOT DETECTED Nasal Influenza B PCR NOT DETECTED Nasal Influenza A PCR NOT DETECTED Nasal Parainfluen 1 PCR NOT DETECTED Nasal Parainfluen 2 PCR NOT DETECTED Nasal Parainfluen 3 PCR NOT DETECTED Nasal Parainfluen 4 PCR NOT DETECTED Nasal RSV (PCR) NOT DETECTED Nasal B.pertussis DNA PCR NOT DETECTED Nasal C.pneumoniae (PCR) NOT DETECTED Joseph Human Metapneumo PCR NOT DETECTED Nasal M.pneumoniae (PCR) NOT DETECTED Nasal SARS-CoV-2 (PCR) NOT DETECTED Serum Ketones PD Medical Decision Making - ED course Complexity details: reviewed results, re-evaluated patient, d/w patient ED course: Patient is a 58-year-old male presenting for evaluation of Chest pain and shortness of air. Has a history of diabetes With recent admission for DKA. EKG is reviewed. CBC, chemistries, venous blood gas, serum ketones, urine analysis, respiratory swab and chest x-ray were ordered. Patient continues to have what appears to be a loculated pleural effusion in the right midlung field which is similar to prior images.Blood sugar noted to be elevated in the 600s.Patient did take 30 units of Lantus this morning. Blood sugar improving already with just IV fluids and the Lantus and he was additionally given 8 units of short acting insulin. Does not appear to be in DKA. Respiratory swab is negative. Sodium is normal when corrected. Potassium of 4.6. WBC of 13 which is similar to when he was admitted to the hospital. No fevers here. Patient is tolerating p.o. intake and ambulating without any difficulty. He still feels like he has pneumonia and given the presence still of the loculated effusion will trial another course of antibiotics. Patient was also counseled on need for close follow-up with his primary care provider for management of his diabetes. At this time I do not feel he needs admission as he is not in DKA and has responded well to IV fluids and insulin. He is also not hypoxic and we will start him on Augmentin and azithromycin to see if this helps with his pneumonia symptoms of cough as well as his chest x-ray findings. Patient advised on need for close follow-up as well as concerning symptoms to return for. Departure - Departure Disposition: 01 Home, Self Care Clinical Impression: Right lower lobe pneumonia, Hyperglycemia Condition: Good Instructions: ED Hyperglycemia Diabetic, ED Pneumonia Adult Follow-Up: Rayna Gibson PA-C [Provider Admit Priv/Credential] - Prescriptions: Amox/Clav 875/125 [Augmentin] 1 each PO Q12H #14 tablet Azithromycin [Zithromax] 1 tab PO DAILY #4 tab Comments: Please call your primary care provider today to make a close follow-up appointment especially given your recent admission to the hospital and now repeat visit to the emergency department. You do need someone who will closely follow your blood sugars as well as your diabetes management.Please make sure you are taking your insulin as directed On your discharge paperwork from your recent admission. Your chest x-ray remains abnormal and thus we are trialing another round of antibiotics. I sent these prescriptions to [facility]. Return to the emergency department with any worsening symptoms. Forms: PCP List, Activity restrictions Discharge Date/Time: 01/19/24 14:09
[2024-01-19 12:49] LABS: BILIRUBIN,URINE MODERATE (NEGATIVE); CLARITY,URINE CLEAR (CLEAR); GLUCOSE, URINE (UA) >=1000 mg/dL (NEGATIVE); KETONES,URINE (UA) 40 mg/dL (NEGATIVE); LEUKOCYTE ESTERASE, URINE NEGATIVE (NEGATIVE); NITRITE,URINE NEGATIVE (NEGATIVE); OCCULT BLOOD,URINE TRACE-INTA (NEGATIVE); PROTEIN,URINE 100 mg/dL (NEGATIVE); UROBILINOGEN,URINE 0.2 (NORMAL) E.U./dL (NORMAL)
[2024-01-19 12:59] LABS: BACTERIA,URINE Few /HPF (None Seen); RBC,URINE 0-5 /HPF (0-5); SQUAMOUS EPITHELIAL CELL,UR RARE Squamous (<= Few); WBC,URINE 0-3 /HPF (0-3)
[2024-01-19] MEDS: INSULIN REGULAR HUMAN 300 UNIT/3 ML VIAL IVP STA (12:59)
[2024-01-19 13:00] LABS: CASTS, URINE 0-2 Granular Casts /LPF
[2024-01-19] MEDS: AZITHROMYCIN 250 MG TABLET PO STA (13:26)
[2024-01-19] MEDS: AMOX/CLAV 875 MG/125 MG TABLET PO STA (13:26)
[2024-01-19 14:18] VITALS: BP 142/84; O2SAT 98
[2024-01-19 14:37] LABS: B. PARAPERTUSSIS- RESP PCR PAN NOT DETECTED; B. PERTUSSIS- RESP PCR PANEL NOT DETECTED; C. PNEUMONIAE- RESP PCR PANEL NOT DETECTED; CORONAVIRUS 229E-RESP PCR NOT DETECTED; CORONAVIRUS HKU1-RESP PCR NOT DETECTED; CORONAVIRUS NL63-RESP PCR NOT DETECTED; CORONAVIRUS OC43-RESP PCR NOT DETECTED; HUMAN METAPNEUMOVIRUS NOT DETECTED; INFLUENZA A- RESP PCR PANEL NOT DETECTED; INFLUENZA B - RESP PCR PANEL NOT DETECTED; M. PNEUMONIAE- RESP PCR PANEL NOT DETECTED; PARAINFLUENZA VIRUS 1 NOT DETECTED; PARAINFLUENZA VIRUS 2 NOT DETECTED; PARAINFLUENZA VIRUS 3 NOT DETECTED; PARAINFLUENZA VIRUS 4 NOT DETECTED; RHINOVIRUS/ENTEROVIRUS NOT DETECTED; RSV- RESP PCR PANEL NOT DETECTED; SARS-CoV-2 -RESP PCR PANEL NOT DETECTED
== END 2024-01-19 14:09 | disposition home or self-care (01) ==
LOC: ED 10:43
DX: J18.9 Pneumonia, unspecified organism (principal); E11.65 Type 2 diabetes mellitus with hyperglycemia; I10 Essential (primary) hypertension; Z79.4 Long term (current) use of insulin; Z79.84 Long term (current) use of oral hypoglycemic drugs; Z11.52 Encounter for screening for COVID-19
CPT/HCPCS: 36415; 71045; 80053; 81001; 82009; 82803; 83690; 84484; 85025; 85379; 87633; 93005; 96360; 99284; A9270; J1815; 81003; 87086

== ENCOUNTER 2024-03-22 11:50 | Emergency (ER) | payer MEDICAID, MEDICARE, OTHER ==
[2024-03-22 12:22] LABS: BASOPHILS # (AUTO) 0.1 10^3/uL (0.0-0.1); BASOPHILS % (AUTO) 0.7 %; EOSINOPHILS # (AUTO) 0.2 10^3/uL (0.0-0.7); EOSINOPHILS % (AUTO) 1.1 %; HCT - HEMATOCRIT 39.1 % (42.0-52.0); HGB - HEMOGLOBIN 13.1 g/dL (14.0-18.0); LYMPHOCYTES # (AUTO) 1.3 10^3/uL (1.5-3.5); MEAN CORPUSCULAR HEMOGLOBIN 30.3 pg (27.0-31.0); MEAN CORPUSCULAR HGB CONC 33.5 g/dL (32.0-36.0); MEAN CORPUSCULAR VOLUME 90.3 fL (80.0-94.0); MEAN PLATELET VOLUME 9.1 fL (7.4-11.4); MONOCYTES # (AUTO) 1.5 10^3/uL (0.0-1.0); MONOCYTES % (AUTO) 10.8 %; NEUTROPHILS # (AUTO) 10.3 10^3/uL (1.5-6.6); PLT - PLATELET COUNT 450 10^3/uL (130-450); RED BLOOD COUNT 4.33 10^6/uL (4.70-6.10); WHITE BLOOD COUNT 13.4 x10^3/uL (4.8-10.8)
[2024-03-22 12:37] LABS: ALBUMIN 3.1 g/dL (3.2-5.5); ALBUMIN/GLOBULIN RATIO 0.8 (1.0-2.2); BILIRUBIN,TOTAL 0.3 mg/dL (0.2-1.0); CREATININE 0.9 mg/dL (0.6-1.3); POTASSIUM 4.3 mmol/L (3.5-4.5); TOTAL PROTEIN 6.9 g/dL (6.4-8.9)
--- NOTE | 2024-03-22 12:45 | XRAY Report ---
PROCEDURE: Chest 2V INDICATIONS: cough TECHNIQUE: 2 views of the chest were acquired. COMPARISON: CT chest with contrast dated 12/15/2023, chest 1 view dated 01/19/2024. FINDINGS: Surgical changes and devices: None. Lungs and pleura: No pleural effusions or pneumothorax. Stable density in the right hemithorax which is consistent with a known loculated right pleural effusion. No superimposed acute infiltrates. Mediastinum: Mediastinal contours appear normal. Heart size is normal. Bones and chest wall: No suspicious bony lesions. Overlying soft tissues appear unremarkable. IMPRESSION: Continued masslike density seen in the right hemithorax, known to represent a loculated posterior rig ht pleural effusion. 2. No acute interval change. Reviewed by: Guanaco Jay MD on 03/22/2024 12:44 PM PDT Approved by: Guanaco Jay MD on 03/22/2024 12:44 PM PDT Station ID: [id number]
--- NOTE | 2024-03-22 13:22 | ED Physician Documentation ---
History of Present Illness - Stated complaint Stated Complaint: SOA,COUGH,CHEST PX,GEN WEAKNESS - Chief complaint Chief Complaint: Resp - History obtained from History obtained from: Patient - Additonal information Additional information: This is a poorly controlled diabetic who presents for persistent cough. Says he was hospitalized 6 weeks ago for pneumonia and really just has not gotten rid of the cough since. He is bringing up yellow sputum. He does continue to smoke. Albeit less than he used to. PD PAST MEDICAL HISTORY - Past Medical History Cardiovascular: Hypertension, High cholesterol Respiratory: None Neuro: Peripheral neuropathy Endocrine/Autoimmune: Type 2 diabetes GI: None : None HEENT: None Psych: None Musculoskeletal: Other Derm: None - Past Surgical History Past Surgical History: Yes General: Appendectomy Ortho: Amputation - Present Medications Home Medications: Ambulatory Orders Medication Instructions Recorded Confirmed Insulin Lispro [Humalog] 3 - 12 unit SUBQ TIDWM 30 Days #1 06/28/22 03/22/24 packet Albuterol Sulf [Ventolin Hfa 1 - 2 puffs INH Q4HR PRN #1 each 12/15/23 03/22/24 Inhaler] Calcium Carbonate [Tums (Calcium 500 mg PO BID tab 12/24/23 03/22/24 Carbonate 500mg)] Gabapentin [Neurontin] 1,200 mg PO BID #240 cap 12/24/23 03/22/24 Liraglutide [Victoza 2-Florian] 1.8 mg SUBQ DAILY 30 Days #9 ml 12/24/23 03/22/24 Losartan [Cozaar] 100 mg PO DAILY #60 tab 12/24/23 03/22/24 metFORMIN [Glucophage] 1,000 mg PO BIDWM #60 tab 12/24/23 03/22/24 Amoxicillin 500 mg PO TID #30 cap 03/22/24 Benzonatate 1 cap PO TID PRN #15 cap 03/22/24 guaiFENesin/CODEINE [Robitussin AC] 5 - 10 ml PO Q6H PRN #120 ml 03/22/24 - Allergies Allergies/Adverse Reactions: Allergies Allergy/AdvReac Type Severity Reaction Status Date / Time No Known Drug Allergies Allergy Verified 01/19/24 10:56 - Social History Does the pt smoke?: Yes Smoking Status: Current every day smoker Does the pt drink ETOH?: Yes Does the pt have substance abuse?: No - Immunizations Immunizations are current?: Yes - POLST Patient has POLST: No POLST Status: Full Code PD ED PE NORMAL - Vitals Vital signs reviewed: Yes - General General: Alert and oriented X 3, No acute distress - HEENT HEENT: PERRL, EOMI - Neck Neck: Supple, no meningeal sign, No bony TTP - Cardiac Cardiac: RRR, No murmur - Respiratory Respiratory: No respiratory distress, Other (Frequent coughing, generally clear lungs with some mild rhonchi) - Neuro Neuro: Alert and oriented X 3 Results - Vitals Vitals: Vital Signs - 24 hr 03/22/24 03/22/24 11:54 13:42 Temperature 36.5 C 36.2 C L Heart Rate 103 H 74 Respiratory 20 19 Rate Blood Pressure 153/73 H 148/84 H O2 Saturation 99 97 Oxygen O2 Source Room air - Labs Labs: Laboratory Tests 03/22/24 03/22/24 03/22/24 12:18 12:18 12:40 WBC 13.4 H RBC 4.33 L Hgb 13.1 L Hct 39.1 L MCV 90.3 MCH 30.3 MCHC 33.5 RDW 14.0 Plt Count 450 MPV 9.1 Neut # (Auto) 10.3 H Lymph # (Auto) 1.3 L [place] # (Auto) 1.5 H Eos # (Auto) 0.2 Baso # (Auto) 0.1 Absolute Nucleated RBC 0.00 Nucleated RBC % 0.0 Sodium 130 L Potassium 4.3 Chloride 94 L Carbon Dioxide 27 Anion Gap 9.0 BUN 25 H Creatinine 0.9 Estimated GFR (MDRD) 86 L Glucose 372 H Calcium 9.0 Total Bilirubin 0.3 AST 6 L ALT 6 L Alkaline Phosphatase 96 Total Protein 6.9 Albumin 3.1 L Globulin 3.8 Albumin/Globulin Ratio 0.8 L Nasal Adenovirus (PCR) NOT DETECTED Nasal B. parapertussis DNA (PCR) NOT DETECTED Nasal Coronavir 229E PCR NOT DETECTED Nasal Coronavir HKU1 PCR NOT DETECTED Nasal Coronavir NL63 PCR NOT DETECTED Nasal Coronavir OC43 PCR NOT DETECTED Nasal Enterovir/Rhinovir PCR NOT DETECTED Nasal Influenza B PCR NOT DETECTED Nasal Influenza A PCR NOT DETECTED Nasal Parainfluen 1 PCR NOT DETECTED Nasal Parainfluen 2 PCR NOT DETECTED Nasal Parainfluen 3 PCR NOT DETECTED Nasal Parainfluen 4 PCR NOT DETECTED Nasal RSV (PCR) NOT DETECTED Nasal B.pertussis DNA PCR NOT DETECTED Nasal C.pneumoniae (PCR) NOT DETECTED Joseph Human Metapneumo PCR NOT DETECTED Nasal M.pneumoniae (PCR) NOT DETECTED Nasal SARS-CoV-2 (PCR) NOT DETECTED - Rads (name of study) CXR Relevant Findings:: Final report received ( Chest x-ray showing right-sided abnormality consistent with chronic loculated pleural effusion seen on multiple previous studies. No acute disease.), EMP independent interpretation of test PD Medical Decision Making - ED course ED course: Persistent bronchitic symptoms in this gentleman with active tobacco abuse and uncontrolled diabetes does merit antibiotics despite no change on chest x-ray. That said he appears well with normal pulse oximetry's. Departure - Departure Disposition: 01 Home, Self Care Clinical Impression: Bronchitis Condition: Good Record reviewed to determine appropriate education?: Yes Instructions: ED Upper Resp Infec Abx Tx Prescriptions: Amoxicillin 500 mg PO TID #30 cap Benzonatate 1 cap PO TID PRN #15 cap PRN Reason: Cough guaiFENesin/CODEINE [Robitussin AC] 5 - 10 ml PO Q6H PRN #120 ml PRN Reason: Cough Comments: I sent your prescriptions electronically to [facility] in [place]. Do your best to quit smoking, call your doctor to arrange a follow-up appointment, make the next available appointment. In the interim, return anytime if worse or if new symptoms develop. Forms: PCP List Discharge Date/Time: 03/22/24 13:42
[2024-03-22] MEDS: guaiFENesin/CODEINE 5 ML UDC PO STA (13:34)
[2024-03-22] MEDS: AMOXICILLIN 250 MG CAPSULE PO STA (13:34)
[2024-03-22 13:35] LABS: B. PARAPERTUSSIS- RESP PCR PAN NOT DETECTED; B. PERTUSSIS- RESP PCR PANEL NOT DETECTED; C. PNEUMONIAE- RESP PCR PANEL NOT DETECTED; CORONAVIRUS 229E-RESP PCR NOT DETECTED; CORONAVIRUS HKU1-RESP PCR NOT DETECTED; CORONAVIRUS NL63-RESP PCR NOT DETECTED; CORONAVIRUS OC43-RESP PCR NOT DETECTED; HUMAN METAPNEUMOVIRUS NOT DETECTED; INFLUENZA A- RESP PCR PANEL NOT DETECTED; INFLUENZA B - RESP PCR PANEL NOT DETECTED; M. PNEUMONIAE- RESP PCR PANEL NOT DETECTED; PARAINFLUENZA VIRUS 1 NOT DETECTED; PARAINFLUENZA VIRUS 2 NOT DETECTED; PARAINFLUENZA VIRUS 3 NOT DETECTED; PARAINFLUENZA VIRUS 4 NOT DETECTED; RHINOVIRUS/ENTEROVIRUS NOT DETECTED; RSV- RESP PCR PANEL NOT DETECTED; SARS-CoV-2 -RESP PCR PANEL NOT DETECTED
[2024-03-22] MEDS: BENZONATATE 100 MG CAPSULE PO STA (13:35)
[2024-03-22 13:51] VITALS: BP 148/84; O2SAT 97
== END 2024-03-22 13:42 | disposition home or self-care (01) ==
LOC: ED 11:50
DX: J40 Bronchitis, not specified as acute or chronic (principal); I10 Essential (primary) hypertension; E78.00 Pure hypercholesterolemia, unspecified; E11.42 Type 2 diabetes mellitus with diabetic polyneuropathy; Z79.4 Long term (current) use of insulin; Z79.84 Long term (current) use of oral hypoglycemic drugs; Z79.899 Other long term (current) drug therapy; F17.200 Nicotine dependence, unspecified, uncomplicated
CPT/HCPCS: 36415; 71046; 80053; 85025; 87633; 93005; 99284; A9270

== ENCOUNTER 2024-05-04 09:31 | Emergency (ER) | payer MEDICARE ==
[2024-05-04 09:47] VITALS: BP 194/80; O2SAT 98
--- NOTE | 2024-05-04 11:08 | ED Physician Documentation ---
PD HPI LOWER EXT INJURY - Stated complaint Stated Complaint: Lt FOOT BLOOD - Chief complaint Chief Complaint: Wound - Additional information Additional information: 58-year-old gentleman with diabetes status post transmetatarsal amp's bilater ally. He was trying to debride the wounds of some crusty granulation tissue on the left foot with a scalpel when he began bleeding. The bleeding is stopped. He is distressed that there is so much callus-like material built up. He has no fevers or chills no recent trauma. 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 PD PAST MEDICAL HISTORY - Past Medical History Past Medical History: Yes Cardiovascular: Hypertension, High cholesterol Respiratory: None Neuro: Peripheral neuropathy Endocrine/Autoimmune: Type 2 diabetes GI: None : None HEENT: None Psych: None Musculoskeletal: Other Derm: None - Past Surgical History Past Surgical History: Yes General: Appendectomy Ortho: Amputation - Present Medications Home Medications: Ambulatory Orders Medication Instructions Recorded Confirmed Insulin Lispro [Humalog] 3 - 12 unit SUBQ TIDWM 30 Days #1 06/28/22 03/22/24 packet Albuterol Sulf [Ventolin Hfa 1 - 2 puffs INH Q4HR PRN #1 each 12/15/23 03/22/24 Inhaler] Calcium Carbonate [Tums (Calcium 500 mg PO BID tab 12/24/23 03/22/24 Carbonate 500mg)] Gabapentin [Neurontin] 1,200 mg PO BID #240 cap 12/24/23 03/22/24 Liraglutide [Victoza 2-Florian] 1.8 mg SUBQ DAILY 30 Days #9 ml 12/24/23 03/22/24 Losartan [Cozaar] 100 mg PO DAILY #60 tab 12/24/23 03/22/24 metFORMIN [Glucophage] 1,000 mg PO BIDWM #60 tab 12/24/23 03/22/24 Amoxicillin 500 mg PO TID #30 cap 03/22/24 Benzonatate 1 cap PO TID PRN #15 cap 03/22/24 guaiFENesin/CODEINE [Robitussin AC] 5 - 10 ml PO Q6H PRN #120 ml 03/22/24 - Allergies Allergies/Adverse Reactions: Allergies Allergy/AdvReac Type Severity Reaction Status Date / Time No Known Drug Allergies Allergy Verified 05/04/24 09:42 - Social History Does the pt smoke?: Yes Smoking Status: Current every day smoker Does the pt drink ETOH?: Yes Does the pt have substance abuse?: No - Immunizations Immunizations are current?: Yes - POLST Patient has POLST: No POLST Status: Full Code PD ED PE NORMAL - Vitals Vital signs reviewed: Yes - General General: Alert and oriented X 3 - Cardiac Cardiac: RRR, No murmur - Free text exam Free text exam: both feet are warm and well-perfused. He has bilateral transmetatarsal amps. He has scaly callus-like buildup along the suture line on both sides. There is no sign of infection. There is no open area. There is no bleeding area. Results - Vitals Vitals: Vital Signs - 24 hr 05/04/24 09:38 Temperature 36.7 C Heart Rate 91 Respiratory 20 Rate Blood Pressure 194/80 H O2 Saturation 98 Oxygen O2 Source Room air PD Medical Decision Making - ED course ED course: patient with chronic wound related issues. He has been debriding with a scalpel at home I discussed with him this is a chronically bad idea. There is no sign of active infection or anything he needs aggressive debridement here today. I will refer him to podiatry for ongoing foot wound management. No sign of infection DVT or other emergency today. Departure - Departure Disposition: 01 Home, Self Care Condition: Good Instructions: Wound Care Follow-Up: Ashanti Jimenes DPM [Provider Admit Priv/Credential] - Comments: Your wounds are not infected at this time. Will refer you to podiatry for ongoing chronic wound care. Forms: PCP List Discharge Date/Time: 05/04/24 11:19
== END 2024-05-04 11:19 | disposition home or self-care (01) ==
LOC: ED 09:31
DX: Z47.81 Encounter for orthopedic aftercare following surgical amputation (principal); I10 Essential (primary) hypertension; E11.9 Type 2 diabetes mellitus without complications; E11.42 Type 2 diabetes mellitus with diabetic polyneuropathy; Z79.4 Long term (current) use of insulin; Z79.84 Long term (current) use of oral hypoglycemic drugs; Z79.899 Other long term (current) drug therapy; F17.200 Nicotine dependence, unspecified, uncomplicated
CPT/HCPCS: 99282; 99283

== ENCOUNTER 2024-05-31 08:31 | Emergency (ER) | payer MEDICARE ==
--- NOTE | 2024-05-31 08:54 | ED Physician Documentation ---
PD HPI SKIN - Stated complaint Stated Complaint: LT FOOT PX - Chief complaint Chief Complaint: Wound - History obtained from History obtained from: Patient - History of Present Illness Timing - onset: How many days ago (several) Timing - duration: Days Timing - details: Abrupt onset (he has had recurring infections in feet with amputations of toes then up to mid foot. Has had thickened calloused skin at end of stump and it has mild drainage and worsening foul smell for few days. 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.), Still present Location: LLE (end of mid foot tissue left of prior amputation.) Quality / character: Draining, Other (foul smelling) Review of Systems Constitutional: denies: Fever, Chills, Myalgias PD PAST MEDICAL HISTORY - Past Medical History Past Medical History: Yes Cardiovascular: Hypertension, High cholesterol Respiratory: Pneumonia Neuro: Peripheral neuropathy Endocrine/Autoimmune: Type 2 diabetes GI: None : None HEENT: None Psych: None Musculoskeletal: Other Derm: None - Past Surgical History Past Surgical History: Yes General: Appendectomy Ortho: Amputation - Present Medications Home Medications: Ambulatory Orders Medication Instructions Recorded Confirmed Insulin Lispro [Humalog] 3 - 12 unit SUBQ TIDWM 30 Days #1 06/28/22 05/31/24 packet Gabapentin [Neurontin] 1,200 mg PO BID #240 cap 12/24/23 05/31/24 Losartan [Cozaar] 100 mg PO DAILY #60 tab 12/24/23 05/31/24 metFORMIN [Glucophage] 1,000 mg PO BIDWM #60 tab 12/24/23 05/31/24 Insulin Glargine [Lantus Solostar] 40 unit SUBQ HS 05/31/24 05/31/24 Mupirocin 2% Oint [Bactroban 2% 1 applic TOP TID #15 gm 05/31/24 Oint] Oxycodone HCl/Acetaminophen 1 - 2 each PO Q6H PRN #14 tablet 05/31/24 [Percocet 5-325 mg Tablet] cephALEXin [Keflex] 500 mg PO TID #20 cap 05/31/24 - Allergies Allergies/Adverse Reactions: Allergies Allergy/AdvReac Type Severity Reaction Status Date / Time No Known Drug Allergies Allergy Verified 08/19/24 08:38 - Social History Does the pt smoke?: Yes Smoking Status: Current every day smoker Does the pt drink ETOH?: Yes ETOH Use: Liquor Does the pt have substance abuse?: No - Immunizations Immunizations are current?: Yes - POLST Patient has POLST: No POLST Status: Full Code PD ED PE NORMAL - Vitals Vital signs reviewed: Yes - General General: Alert and oriented X 3, No acute distress (he states lot of pain in fo ot which has neuropathy, with baseline pain anyway, but worse the past few days. 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 No pus pocket per se, but some mild seeping pus under that) Results - Vitals Vitals: Vital Signs - 24 hr 05/31/24 05/31/24 08:38 12:21 Temperature 36.9 C Heart Rate 87 73 Respiratory 18 18 Rate Blood Pressure 139/71 H 160/77 H O2 Saturation 100 98 Oxygen O2 Source Room air - Labs Labs: Microbiology 05/31/24 09:43 Wound Culture - Preliminary Foot - Left Laboratory Tests 05/31/24 05/31/24 05/31/24 09:56 09:56 09:56 WBC 9.1 RBC 4.46 L Hgb 14.2 Hct 40.8 L MCV 91.5 MCH 31.8 H MCHC 34.8 RDW 13.2 Plt Count 332 MPV 9.2 Neut # (Auto) 6.2 Lymph # (Auto) 1.4 L Peach # (Auto) 1.1 H Eos # (Auto) 0.2 Baso # (Auto) 0.1 Absolute Nucleated RBC 0.00 Nucleated RBC % 0.0 ESR 31 H Sodium 131 L Potassium 4.2 Chloride 95 L Carbon Dioxide 28 Anion Gap 8.0 BUN 19 Creatinine 0.7 Estimated GFR (MDRD) 115 Glucose 381 H Calcium 8.6 Total Bilirubin 0.5 AST 6 L ALT 7 L Alkaline Phosphatase 102 C-Reactive Protein 5.7 H Total Protein 7.0 Albumin 3.2 Globulin 3.8 Albumin/Globulin Ratio 0.8 L Lipase 11 Procalcitonin Immunoas 0.09 PD Medical Decision Making - ED course Complexity details: reviewed results, considered differential, d/w patient, other (I used large scalpel to trima way tissue at end of stump. Got to viable appearing edge. No visible bone nor fistulous appearing tracts. There was some seepage in tissue that I excised. ) ED course: there is some thickened callous of tissue at end of amp. Feels soft just under that. I debrided deat tissue about 1/2 cm thick in placed and got to better appearing soft tissue. No bleeding, so I did not go too deeply. Culture obtained of some of the moisture noted. I did not see seepage from deeper nor any abscess. WBC is normal. ESR moderately up at 30 and CRP up at 5.7. Procalcitonin is negative. He has had much higher CRP and ESR in the past even when not having osteo. I felt it was still soft tissue infection and can try abx. Given IV dose here rocephin 2 g IV, segue of prior cultures of Strep and Klebsiella, both being susceptible to ceftriaxone. Departure - Departure Disposition: 01 Home, Self Care Clinical Impression: Foot infection, Foot pain, Neuropathy Condition: Stable Record reviewed to determine appropriate education?: Yes Follow-Up: Rayna Gibson PA-C [Primary Care Provider] - Prescriptions: Mupirocin 2% Oint [Bactroban 2% Oint] 1 applic TOP TID #15 gm cephALEXin [Keflex] 500 mg PO TID #20 cap Oxycodone HCl/Acetaminophen [Percocet 5-325 mg Tablet] 1 - 2 each PO Q6H PRN #14 tablet PRN Reason: pain Comments: I did trim off a fair amount of the skin over the area to allow better cleaning soaking and drainage. We did do a culture of the area and that should result in a couple of days. Based on prior infections you have had, I chose cephalexin antibiotic as you are most recent infection cultures had shown sensitivity to that. We can also add mupirocin topical antibiotic to the wound twice daily. Soak the area with warm water 2-3 times daily. Apply the mupirocin ointment. Add acetaminophen/Tylenol 4 times daily for pain. I did prescribe short-term some oxycodone to use for worse pain. Recheck if not improved well over the next few days and we are sooner if worsening such as redness more proximal, general symptoms such as fever and not feeling well etc. Will be able to gauge the appropriateness of the antibiotic based on the culture in a couple of days and we will call you if we need to change choices. Otherwise follow-up with your primary care in the next several days, call for an appointment. I sent your prescription to your preferred pharmacy. Forms: PCP List Discharge Date/Time: 05/31/24 12:32
[2024-05-31 10:02] LABS: BASOPHILS # (AUTO) 0.1 10^3/uL (0.0-0.1); BASOPHILS % (AUTO) 0.9 %; EOSINOPHILS # (AUTO) 0.2 10^3/uL (0.0-0.7); EOSINOPHILS % (AUTO) 2.5 %; HCT - HEMATOCRIT 40.8 % (42.0-52.0); HGB - HEMOGLOBIN 14.2 g/dL (14.0-18.0); LYMPHOCYTES # (AUTO) 1.4 10^3/uL (1.5-3.5); LYMPHOCYTES % (AUTO) 15.4 %; MEAN CORPUSCULAR HEMOGLOBIN 31.8 pg (27.0-31.0); MEAN CORPUSCULAR HGB CONC 34.8 g/dL (32.0-36.0); MEAN CORPUSCULAR VOLUME 91.5 fL (80.0-94.0); MEAN PLATELET VOLUME 9.2 fL (7.4-11.4); MONOCYTES # (AUTO) 1.1 10^3/uL (0.0-1.0); MONOCYTES % (AUTO) 12.3 %; NEUTROPHILS # (AUTO) 6.2 10^3/uL (1.5-6.6); NEUTROPHILS % (AUTO) 68.5 %; PLT - PLATELET COUNT 332 10^3/uL (130-450); RED BLOOD COUNT 4.46 10^6/uL (4.70-6.10); RED CELL DISTRIBUTION WIDTH 13.2 % (12.0-15.0); WHITE BLOOD COUNT 9.1 x10^3/uL (4.8-10.8)
[2024-05-31] MEDS: KETOROLAC 15 MG/ML VIAL IVP STA (10:13)
[2024-05-31] MEDS: HYDROmorphone 1 MG/ML CARPUJECT IVP STA (10:14)
[2024-05-31 10:16] LABS: ALBUMIN 3.2 g/dL (3.2-5.5); ALBUMIN/GLOBULIN RATIO 0.8 (1.0-2.2); BILIRUBIN,TOTAL 0.5 mg/dL (0.2-1.0); CALCIUM 8.6 mg/dL (8.5-10.3); CREATININE 0.7 mg/dL (0.6-1.3); CRP - C-REACTIVE PROTEIN 5.7 mg/dL (<0.5); POTASSIUM 4.2 mmol/L (3.5-4.5)
[2024-05-31] MEDS: cefTRIAXone 2 GM in SODIUM CHLORIDE 0.9% MINIBAG 100 ML IV STA (10:18)
[2024-05-31 10:26] LABS: PROCALCITONIN 0.09 ng/mL (<0.5)
[2024-05-31] MEDS: HYDROmorphone 2 MG/ML VIAL IVP STA (12:19)
[2024-05-31] MEDS: MUPIROCIN 2% OINT 1 GM TOP STA (12:20)
[2024-05-31 12:26] VITALS: BP 160/77; O2SAT 98
== END 2024-05-31 12:32 | disposition home or self-care (01) ==
LOC: ED 08:31
DX: T87.44 Infection of amputation stump, left lower extremity (principal); E11.40 Type 2 diabetes mellitus with diabetic neuropathy, unspecified; I10 Essential (primary) hypertension; E78.00 Pure hypercholesterolemia, unspecified; F17.200 Nicotine dependence, unspecified, uncomplicated; Z79.4 Long term (current) use of insulin; Z79.84 Long term (current) use of oral hypoglycemic drugs
CPT/HCPCS: 36415; 80053; 83690; 84145; 85025; 85651; 86140; 87070; 87205; 96365; 96375; 96376; 97597; 99283; 99284; A9270; J1170